=== PATIENT | female | born 1950 | race Caucasian/White ===

== ENCOUNTER → 2018-08-28 10:43 | Outpatient (CLI) | payer MEDICARE, SELFPAY | PROVIDERS: Referring Provider Internal Medicine Cardiovascular Disease; Visit Provider Internal Medicine Cardiovascular Disease | DX: R00.2 Palpitations (principal) | CPT/HCPCS: 93306 ==

== ENCOUNTER → 2018-12-17 09:30 | Outpatient (CLI) | payer MEDICARE, SELFPAY ==
--- NOTE | 2018-12-17 09:33 | BI_ITS ---
MAMMOGRAPHY - BILATERAL SCREENING REASON FOR EXAM: Female, 68 years old. Routine annual screening examination. PERTINENT HISTORY: Sister with breast cancer. Aunt with breast cancer. TECHNIQUE: Digital bilateral breast rai (3D mammographic acquisition) in the CC and MLO projections. 2-D mediolateral oblique (MLO) and craniocaudad (CC) views of both breasts were obtained. CAD: Full Field Digital Mammography with Computer Added Detection was performed. COMPARISON: Comparison is made with prior study dated August 04, 2017 and August 02, 2016. FINDINGS: Breast Composition: There are scattered areas of fibroglandular density. The previously seen nodular density in the deep upper medial portion of the right breast has increased in size. It presently measures 1.5 cm x 1.2 cm. Correlation with ultrasound is recommended. No other significant abnormalities are identified. BI/SCREENING MAMM (CAD), BILAT IMPRESSION: Increased size of the nodular density in the deep upper medial portion of the right breast as described. Correlation with ultrasound is recommended. ASSESSMENT CATEGORY: BIRADS Category 0: Incomplete. Need additional imaging evaluation. A letter regarding these results will be sent to the patient by the facility within 30 days. Approximately 10% of breast cancers are not detected by mammography. A normal mammogram should not delay biopsy of a clinically suspicious abnormality. [id number] Electronically Signed: Lefty Espinoza MD at 12:32 EST , Service support ,
== END ==
DX: Z12.31 Encounter for screening mammogram for malignant neoplasm of breast (principal)
CPT/HCPCS: 77063; 77067

== ENCOUNTER → 2018-12-21 14:39 | Outpatient (CLI) | payer MEDICARE, SELFPAY ==
--- NOTE | 2018-12-21 14:41 | US_ITS ---
STUDY: ULTRASOUND BREAST - RIGHT REASON FOR EXAM: Female, 68 years old. Abnormal screening mammogram. TECHNIQUE: Axial and longitudinal images of the RIGHT breast were performed with a high resolution ultrasound transducer. COMPARISON: Comparison is made with prior mammogram dated December 17, 2018. FINDINGS: RIGHT Breast: There is a 1.1 cm x 1.3 cm x 0.8 cm hypoechoic slightly lobulated solid mass at the 2:00 position of the breast at 15 cm from the nipple. A biopsy is recommended for further evaluation. US/Breast Limited Unilateral IMPRESSION: The mammographic abnormality corresponds to a 1.1 cm x 1.3 cm x 0.8 cm slightly lobulated hypoechoic nodule at the 2:00 position of the breast at 15 cm from the nipple. A biopsy is recommended for further evaluation. ASSESSMENT CATEGORY: BIRADS Category 4: Suspicious - Biopsy Should Be Considered. A letter regarding these results will be sent to the patient by the facility within 30 days. Electronically Signed: Lefty Espinoza MD at 16:00 EST , Service support ,
== END ==
DX: R92.2 Inconclusive mammogram (principal)
CPT/HCPCS: 76642

== ENCOUNTER → 2018-12-29 14:52 | Outpatient (CLI) | payer MEDICARE, SELFPAY ==
--- NOTE | 2018-12-29 | IMM_PTH ---
PATIENT: ALONZO VÁSQUEZ LOC: [facility] U#:[id number] AGE/SX: 74/F ROOM: RE12/29/[address]: Dr. Jamie Pineda MD : 1950 BED: DIS: SPEC #: [id number] RECD: 12/30/18 13:41 STATUS: GARCIA REPaul #: [id number] MAXIMINO: 12/29/18 00:[address]: Jamie Pineda DEPT: IMMUNOHISTOCHEMISTRY RECD BY: Sisi Barker ENTERED: 12/30/18 13:43 SP TYPE: IMMUNO OTHR DR: [facility] Tissues: Right breast, NOS Procedures: CALPONIN-1 (add) CK5-6 (add) CK8 (add) E-CAD (add) HER2 HOLLY (add) KI-67 (add) P53 (add) MA (add) P40 (add) ER (initial) PHYSICIAN & INSTITUTION [place] [id number] SPECIMEN INFORMATION: Tissue Source: Right breast biopsy Clinical Info: Abnormal mammogram Specimen Number: [id number] CPT code: 31192, 35451 x6, 16292 x3 METHODOLOGY: Deparaffinized sections of prefer/formalin-fixed tissue or PAP/DQ stained slides are incubated with monoclonal/polyclonal antibodies/oligonucleotide probes. Localization is made via biotin free immunoperoxidase method. Appropriate controls are performed and reacted as expected. Results on target cell population are indicated in the following table: RESULTS: ANTIBODY / CLONE RESULT P53 (DO-7) positive, 2% dim Ki-67 (30-9) positive, low CK8 (38zahsG09) positive CK5-6 (D5 & 1684) negative Calponin-1 (UJ802S) negative P40 (BC28) negative E-Cad (ECH-6) positive MORPHOMETRIC ANALYSIS ER (clone 6F11) >95%, strong MA (clone 16/1E2) >95%, strong Her-2Neu (clone CB11) 0 The prognostic test for HER2 is performed on formalin-fixed paraffin embedded tissue. A 3+ (positive) staining pattern is defined as intense, homogeneous, complete, circumferential membranous staining in >10% of contiguous tumor cells. A similar weak (2+) staining pattern is interpreted as equivocal. MELY follow-up testing is recommended for all equivocal cases. Positivity/negativity for ER/MA is reported if > or < 1% of the tumor cells are immuno- reactive, respectively. The ASCO/CAP criteria is used for scoring. Reference: Journal of Clinical Oncology, 2013; 31:2361-7436 & 2010; 16:7569-7852. Duration of fixation: 5.5 Hrs; Sample Adequate: Yes. These assays have not been validated on decalcified tissues. Results should be interpreted with caution given the likelihood of false negativity on decalcified specimens. These tests were developed and their performance characteristics determined by [facility]. They may not have been cleared or approved by the U.S. Food and Drug Administration. The FDA has determined that such clearance or approval is not necessary. INTERPRETATION: Right breast, ultrasound-guided biopsy: Consistent with complex atypical papillary neoplasm. Positive for estrogen receptors (favorable prognostic indicator). Positive for progesterone receptors (favorable prognostic indicator). Negative for overexpression of SJO6eoy. AM:brennan 12/31/18
--- NOTE | 2018-12-29 14:00 | BRBX_PTH ---
PATIENT: ALONZO VÁSQUEZ LOC: [facility] U#:[id number] AGE/SX: 74/F ROOM: RE12/29/[address]: Dr. Jamie Pineda MD : 1950 BED: DIS: SPEC #: [id number] RECD: 12/29/18 14:48 STATUS: GARCIA NYA #: [id number] MAXIMINO: 12/29/18 14:[address]: Jamie Pineda DEPT: SURGICAL PATHOLOGY RECD BY: Sisi Barker ENTERED: 12/29/18 15:15 SP TYPE: BREAST BX OTHR DR: Юлия [facility] Tissues: Right breast, NOS Procedures: Gen Path Consultation (on slides) Surgery Specimen Level IV HEADER OPERATION: Ultrasound-guided right breast biopsy PRE-OP DIAGNOSIS: Abnormal mammogram R92.8 TISSUE SUBMITTED: Right breast biopsy ISCHEMIC TIME: 30 seconds FIXATION TIME: 5.5 hours MICROSCOPIC DIAGNOSIS Right breast, ultrasound-guided core biopsy: Fragments of atypical papillary neoplasm. See comment. AM:brennan 12/30/18 COMMENT Complete excision of the lesion is recommended for definite classification. Immunohistochemistry ([id number]) supports the above diagnosis. ER/MT/Iqi6yta studies are being performed on sections of tumor and the results from this study will be reported separately ([id number]). MICROSCOPIC DESCRIPTION Slides are reviewed. GROSS DESCRIPTION Received in fixative is one container labeled with the patient's name and designated right breast tissue. The specimen consists of multiple fragments of montes-yellow fibroadipose tissue that in aggregate measure 1.3 x 0.6 x 0.1 cm. The entire specimen is submitted in one cassette. / SJ:brennan 12/29/18 TC:? CPT: 19757
--- NOTE | 2018-12-29 14:00 | BRBX_PTH ---
PATIENT: ALONZO VÁSQUEZ LOC: [facility] U#:[id number] AGE/SX: 74/F ROOM: RE12/29/[address]: Dr. Jamie Pineda MD : 1950 BED: DIS: SPEC #: [id number] RECD: 12/29/18 14:48 STATUS: GARCIA NYA #: [id number] MAXIMINO: 12/29/18 14:[address]: Jamie Pineda DEPT: SURGICAL PATHOLOGY RECD BY: Sisi Barker ENTERED: 12/29/18 15:15 SP TYPE: BREAST BX OTHR DR: Юлия [facility] Tissues: Right breast, NOS Procedures: Gen Path Consultation (on slides) Surgery Specimen Level IV HEADER OPERATION: Ultrasound-guided right breast biopsy PRE-OP DIAGNOSIS: Abnormal mammogram R92.8 TISSUE SUBMITTED: Right breast biopsy ISCHEMIC TIME: 30 seconds FIXATION TIME: 5.5 hours MICROSCOPIC DIAGNOSIS Right breast, ultrasound-guided core biopsy: Consistent with papillary carcinoma, 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 See comment. AM:brennan 12/30/18 AM:brennan 01/04/19 COMMENT Complete excision of the lesion is recommended for definite classification. Immunohistochemistry ([id number]) supports the above diagnosis. ER/MI/Skb0jlr studies are being performed on sections of tumor and the results from this study will be reported separately ([id number]). This case is seen in consultation with Dr. Warren of [employer]. The complete consultative report is viewable in patient's EMR. MICROSCOPIC DESCRIPTION Slides are reviewed. GROSS DESCRIPTION Received in fixative is one container labeled with the patient's name and designated right breast tissue. The specimen consists of multiple fragments of montes-yellow fibroadipose tissue that in aggregate measure 1.3 x 0.6 x 0.1 cm. The entire specimen is submitted in one cassette. / SJ:brennan 12/29/18 TC:0 CPT: 13771
[2018-12-29 14:26] VITALS: BMI 50.1
== END ==
PROVIDERS: Referring Provider Surgery; Visit Provider Surgery
DX: R92.8 Other abnormal and inconclusive findings on diagnostic imaging of breast (principal)
CPT/HCPCS: 88305; 88325; 88341; 88342

== ENCOUNTER 2019-01-15 10:49 | Day surgery (SDC) | payer MEDICARE, SELFPAY ==
[2019-01-12 08:03] VITALS: BMI 50.1
[2019-01-15] VITALS (7 sets, daily range): BP systolic 137–165; BP diastolic 57–72; PULSE 51–63; RESP 16–18; TEMP 36.4–36.9; O2SAT 96–100; BMI 48.9
--- NOTE | 2019-01-15 | IMM_PTH ---
PATIENT: ALONZO VÁSQUEZ LOC: [facility] U#:[id number] AGE/SX: 68/F ROOM: RE01/15/[address]: Dr. Jamie Pineda MD : 1950 BED: DIS: 01/15/2019 SPEC #: [id number] RECD: 01/21/19 12:48 STATUS: GARCIA REQ #: [id number] MAXIMINO: 01/15/19 00:[address]: Jamie Pineda DEPT: IMMUNOHISTOCHEMISTRY RECD BY: Sisi Barker ENTERED: 01/21/19 12:50 SP TYPE: IMMUNO OTHR DR: Rhianna Claire, [employer] Tissues: A - Right breast, NOS B - Axillary lymph node, NOS Procedures: E-CAD (initial) CK7 (add) CK8 (add) Pankeratin (initial) PHYSICIAN & INSTITUTION [place] [id number] SPECIMEN INFORMATION: Tissue Source: A - Right breast, lumpectomy, B - Right sentinel lymph node, biopsy Clinical Info: Intraductal papillary adenocarcinoma right breast Specimen Number: [id number] A6 & B1 CPT code: 38919 x2, 92801 x3 METHODOLOGY: Deparaffinized sections of prefer/formalin-fixed tissue or PAP/DQ stained slides are incubated with monoclonal/polyclonal antibodies/oligonucleotide probes. Localization is made via biotin free immunoperoxidase method. Appropriate controls are performed and reacted as expected. Results on target cell population are indicated in the following table: RESULTS: ANTIBODY / CLONE RESULT Block A6 E-Cad (ECH-6) positive CK8 (97vwkhR24) positive Block B1 AE1-3 (AE1/AE3/PCK26) negative CK7 (OV-TL12/30) negative These tests were developed and their performance characteristics determined by [facility]. They may not have been cleared or approved by the U.S. Food and Drug Administration. The FDA has determined that such clearance or approval is not necessary. INTERPRETATION: A. Right breast, lumpectomy: Focal ductal carcinoma in situ. B. Right sentinel lymph node, biopsy: One lymph node, negative for metastatic carcinoma. COREY:brennan 01/22/19
--- NOTE | 2019-01-15 | BREAST_PTH ---
PATIENT: ALONZO VÁSQUEZ LOC: [facility] U#:[id number] AGE/SX: 68/F ROOM: RE01/15/[address]: Dr. Jamie Pineda MD : 1950 BED: DIS: 01/15/2019 SPEC #: [id number] RECD: 01/15/19 14:13 STATUS: GARCIA REPaul #: [id number] MAXIMINO: 01/15/19 00:[address]: Jamie Pineda DEPT: SURGICAL PATHOLOGY RECD BY: Sisi Barker ENTERED: 01/15/19 15:13 SP TYPE: BREAST OTHR DR: Rhianna Claire, [employer] Tissues: A - Right breast, NOS B - Axillary lymph node, NOS C - Right breast, NOS Procedures: Frozen Section (charge) Surgery Specimen Level IV Surgery Specimen Level V HEADER OPERATION: Right breast lumpectomy, SN with Neoprobe, ultrasound-guided NL PRE-OP DIAGNOSIS: Intraductal papillary adenocarcinoma right breast TISSUE SUBMITTED: A - Right breast lumpectomy, wire in skin - anterior lateral, single long suture - medial, double long suture - lateral, double short suture - inferior, B - Right sentinel nodes, frozen section at 1417, C - Right breast tissue posterior margin, suture closest to tumor FROZEN SECTION DIAGNOSIS B. Right sentinel lymph node, biopsy: One lymph node, negative for metastatic carcinoma. SJ:brennan 01/15/19 MICROSCOPIC DIAGNOSIS A. Right breast, lumpectomy with needle localization: Encapsulated papillary carcinoma. See cancer summary below. B. Right sentinel lymph node, biopsy: One lymph node, negative for metastatic carcinoma. See comment. C. Right breast tissue, posterior margin: A few floating fragments of papillary carcinoma in the blood clots in the area identified by the suture, favor contamination. SJ: 01/21/19 DUCTAL CARCINOMA IN SITU SUMMARY: Specimen - partial breast Procedure - excision with wire-guided localization. Lymph node sampling - sentinel lymph node Specimen integrity - multiple designated specimens (main excision and identified margin) Specimen size - lumpectomy specimen 8 x 6 x 3 cm and additional margin 5 x 4 x 1.5 cm Tumor site - not identified Size (extent) of DCIS - 1.1 x 1 x 0.8 cm Number of blocks with DCIS - 3 Number of blocks examined - 16 (specimens A & C) Histologic type - encapsulated papillary carcinoma Nuclear grade - Grade 2 Necrosis - not identified Margins - margin uninvolved by carcinoma. The tumor is 0.5 cm away from the closest posterior margin. See comment. Treatment effect: Response to presurgical (neoadjuvant) therapy - no known presurgical therapy. Lymph nodes: Number of sentinel lymph nodes examined - 1 Total number of lymph nodes examined (sentinel and nonsentinel) - 1 Number of lymph nodes with macrometastasis, micrometastasis and isolated tumor cells - 0 Method of evaluation of sentinel lymph nodes - H & E, multiple levels and IHC. Distant metastasis - not applicable Additional Pathologic Findings - consistent with previous biopsy site. Ancillary Studies from previous specimen ([id number] / [id number]): ER - positive (>95%, strong) CT - positive (>95%, strong) Her2 maria eugenia (IHC) - negative (0) Microcalcifications - not identified Clinical history - Please make reference to previous specimen ([id number]), right breast, ultrasound-guided core biopsy with diagnosis of consistent with papillary carcinoma, 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 Pathologic Staging: pTis(encapsulated papillary carcinoma) Nx Mx The above summary is in compliance with [employer] [place] Pathology (CAP) Cancer Protocols Checklist and [place] Joint Committee on Cancer (AJCC), Staging Manual, 8th Ed. COMMENT A. Immunohistochemistry ([id number]) supports the above diagnosis. B. The lymph node is negative for metastatic carcinoma on multiple H & E levels and immunohisto-chemical stains for cytokeratins ([id number]). Case has been reviewed in consultation with Dr. Bernard who concurs with the above diagnosis. IDC:AM MICROSCOPIC DESCRIPTION Slides are reviewed. GROSS DESCRIPTION A - Received in fresh for intraoperative consultation labeled with the patient's name and designated right breast lumpectomy. The specimen consists of a piece of fibroadipose tissue with needle localization measuring 8 x 6 x 3 cm. A piece of skin noted anteriorly measuring 1 x 0.5 cm. The specimen is inked as follows: anterior - yellow, posterior - black, superior - blue, inferior - green, medial - red and lateral - orange. Sections reveal a montes, indurated mass measuring 1.1 x 0.8 x 1 cm and this mass is opened 0.5 cm away from the closest superior margin. Sections of the rest of the specimen reveal montes-yellow adipose cut surfaces mixed with scant fibrous areas. The gross is reviewed with the surgeon in person. Barrel Burner sections are submitted in ten cassettes as follows: 1 & 2 - perpendicular margin and skin, 3-5 - entire tumor mass with surround tissue, 6-10 - sales representative facility services sections adjacent and away from the mass. Sections will be submitted after additional fixation. / SJ:brennan 01/18/19 B - Received fresh for frozen section diagnosis labeled with the patient's name is a specimen designated right sentinel lymph node. The specimen consists of two pieces of yellow adipose tissue measuring in aggregate 2 x 2 x 0.7 cm. One lymph node is identified measuring 1 cm in greatest dimension. The entire specimen is submitted in two cassettes as follows: 1 - frozen section, one bisected lymph node, 2 - rest of the specimen. / SJ:brennan 01/15/19 C - Received in fixative is one container labeled with the patient's name and designated right breast tissue posterior margin. The specimen consists of a piece of yellow adipose tissue measuring 5 x 4 x 1.5 cm. One surface shows a suture which is inked black and opposite surface is inked blue. The area close to the suture is also submitted. / SJ:brennan 01/18/19 TC:0 CPT: 81859 x2, 91178, 45567, 77571
--- NOTE | 2019-01-15 11:54 | NM_ITS ---
CLINICAL: Female, 68 years old. ] Breast Cancer NUCLEAR MEDICINE LYMPHOSCINTIGRAPHY TECHNIQUE: Intradermal administration of 1 mCi of Tc99m sulfur colloid, in the periareolar region in the affected breast is performed. COMPARISON STUDIES : NM - None. CR - Not available for review at this time. CT - Not available for review at this time. MR - Not available for review at this time. US - Not available for review at this time. FINDINGS: The patient was sent to the OR no images were obtained. NM/Lymph Node Injection Only IMPRESSION: Successful lymphoscintigraphy. Electronically Signed: Federica Cardenas, at 16:22 EDT Tel , Service support ,
[2019-01-15 12:11] LABS: Bedside Glucose 104 mg/dL (70-110)
--- NOTE | 2019-01-15 13:36 | PCM.OPRPT ---
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 Injection of 5 cc of Lymphazurin blue. 2. Ultrasound-guided wire localization of intraductal papillary adenocarcinoma of right breast. 3. ultrasound-guided wire localization lumpectomy. 4. Right sentinel lymph node biopsy Type of Anesthesia:: General Anesthesiologist: Munir Adkins Specimen's removed: 1. Right breast lumpectomy. 2. Right sentinel lymph node biopsies Drains: none Description of Procedure: Patient was brought into the operating room. Placed in the supine position. Under excellent LMA anesthesia I ultrasound the right breast in the upper inner quadrant and identified the lesion. I prepped the skin with alcohol. A Kopan's wire was placed directly through the lesion. It was cut appropriately. I prepped the nipple areolar area with alcohol. I injected 5 cc of Lymphazurin blue circumareolar the around the nipple. I massaged the breast for 5 minutes. The breast and axillary area were then sterilely prepped and draped in the usual fashion. I injected local in the upper inner quadrant I made an incision in elliptical incision around the previous biopsy site with electrocautery I went around the lesion obtaining good hemostasis. I marked my specimen with a single long medial double long lateral double short inferiorly. I then took a posterior margin which was closest to the biopsy site. This was sent for permanent sectioning and formaldehyde. Once I had good hemostasis I closed the subcu tissue with 3 sutures of 2-0 Vicryl. Use the Татьяна counter and identified the closest lymph node. I made an axillary incision. I dissected down with electrocautery through the clavipectoral fascia and identified a blue lymphatic. I traveled the blue lymphatic using the Татьяна counter until I found an extremely hot lymph node measuring above 1700. I removed this lymph node with the harmonic dissector and sent to pathology. I then placed the [place] counter back into the axillary area found another area that was slightly elevated above 400 I dissected this out with harmonic dissector and sent it as well. Both of these areas look blue. No other areas in the axillary area were hot with the [place] counter. Frozen section on the lymph node confirmed it to be benign. The axillary incision was then closed with subcu of 2-0 Vicryl deep dermals of 3-0 Vicryl then a running 4-0 Monocryl. Skin incision on the breast was closed with deep dermal stitches of 3-0 Vicryl then a running 4-0 Monocryl. Steri-Strips are applied sterile dressings were applied and the patient tolerated the procedure well. - Admit VTE Documentation VTE Present on Admission: No VTE Mechan Device Prophylaxis: SCD's VTE Pharm Prophylaxis ordered?: No Reason prophylaxis not ordered:: Treatment Not Indicated
--- NOTE | 2019-01-15 13:39 | DCINST_ITS ---
Discharge Diet: No Restrictions Discharge Activity: May Not Drive - for 2-3 days or while taking narcotic pain meds. May shower in (days): 1 Lifting Restrictions: 10 pounds for 1 week. Call your doctor if your incision/area has: Continuous Slow Oozing, Sudden In creased Bleeding Call your doctor if you observe: Fever of 101 or Higher Suture Line Care: Avoid Pulling/Pushing, Avoid Pinching/Bending Remove Dressing in (days):: 1 - Remove bulky dressing tomorrow. May leave any opsite dressing for 3-4 days[address] Keep dressing in place until your follow-up appointment. Additional Dressing/Incision Instructions:: Remove bulky dressing tomorrow. May leave any opsite dressing for 3-4 days. Keep dressing in place until your follow-up appointment. Allergies/Adverse Reactions: Allergies cephalexin Allergy (Verified 01/15/19 11:36) Rash clindamycin Allergy (Verified 01/15/19 11:36) Rash Penicillins Allergy (Verified 01/15/19 11:36) Rash Sulfa (Sulfonamide Antibiotics) Allergy (Verified 01/15/19 11:36) Rash PLASTIC TAPE Adverse Reaction (Uncoded 01/15/19 11:36) TEARS SKIN Medications to take at Discharge Ascorbic Acid [Vitamin C] 500 mg PO DAILY@0800 06/11/17 Aspirin E.C. [Ecotrin] 81 mg PO DAILY@0800 06/11/17 Ergocalciferol [Vitamin D] 50,000 unit PO MO 06/11/17 Hydrochlorothiazide [Hctz] 25 mg PO DAILY 06/11/17 Losartan Potassium [Cozaar] 50 mg PO BID 06/11/17 Metformin HCl [Metformin HCl ER] 750 mg PO QHS 06/11/17 Montelukast [Singulair] 10 mg PO DAILY 06/11/17 Omeprazole [Prilosec] 20 mg PO DAILY 06/11/17 Pravastatin [Pravachol] 20 mg PO QHS 06/11/17 Albuterol Inhaler [Ventolin Hfa] 2 puff INHALATION Q4H PRN PRN #1 inhaler 08/23/17 Fluticasone/Salmeterol [Advair 500/50 Mcg Diskus] 1 puff INHALATION BID PRN #1 inhaler 08/23/17 fluticasone furoate 27.5 mcg/actuation nasal spray,suspension 2 spray INTRANASAL DAILY 08/11/18 atenolol 50 mg tablet 50 mg PO DAILY #90 tab 08/12/18 Acetaminophen [Tylenol Extra Strength] 500 mg PO DAILY 01/14/19 Oxycodone HCl/Acetaminophen [Percocet 5/325] 1 - 2 tab PO Q4H PRN PRN 6 Days #30 tab 01/15/19 The following prescriptions were given: Oxycodone HCl/Acetaminophen [Percocet 5/325] 1 - 2 tab PO Q4H PRN PRN 6 Days #30 tab PRN Reason: Pain Primary Care Physician: Юлия Marroquin [Primary Care Provider] -
[2019-01-15] MEDS: Isosulfan Blue 1% 5 ML Vial (13:45)
--- NOTE | 2019-01-15 14:00 | BI_ITS ---
SURGICAL BREAST SPECIMEN RADIOGRAPH CLINICAL: Document presence of tissue clip marker in biopsy specimen. FINDINGS: Specimen shows presence of tissue clip marker. Pathology is pending and an addendum to the biopsy report will be performed after the final pathologic diagnosis is rendered. Electronically Signed: Federica Cardenas, at 16:22 EDT Tel , Service support , BI/Breast Biopsy Specimen
[2019-01-15] MEDS: Bupivacaine Mpf 0.5% 30 ML VIAL (14:23)
[2019-01-15 15:26] LABS: Bedside Glucose 86 mg/dL (70-110)
--- NOTE | 2019-01-15 16:48 | SUR.PHASEII ---
norco prescription destroyed by tearing and placing in secured recycle bin. Witnessed by Analia LIVNIGSTON.
== END 2019-01-15 16:50 | disposition home or self-care (01) ==
LOC: SDC 10:50 → AC 10:51
PROVIDERS: Referring Provider Surgery; Visit Provider Surgery
PROC: (CPT 19301; principal; 2019-01-15 13:45)
DX: D05.11 Intraductal carcinoma in situ of right breast (principal); I10 Essential (primary) hypertension; E78.5 Hyperlipidemia, unspecified; J45.909 Unspecified asthma, uncomplicated; E11.9 Type 2 diabetes mellitus without complications; M19.90 Unspecified osteoarthritis, unspecified site; G47.33 Obstructive sleep apnea (adult) (pediatric); I34.0 Nonrheumatic mitral (valve) insufficiency
CPT/HCPCS: 19301; 38525; 38792; 76098; 82962; 88305; 88307; 88331; 88341; 88342; A9541; J7050; J7120; J2405; Q9968

== ENCOUNTER → 2019-02-02 11:50 | Outpatient (CLI) | payer MEDICARE, SELFPAY ==
[2019-01-27 13:06] VITALS: BMI 49.2
[2019-02-02 10:51] VITALS: BMI 48.9
--- NOTE | 2019-02-02 11:56 | BD_ITS ---
STUDY: DUAL ENERGY X-RAY ABSORPTIOMETRY / DXA REASON FOR EXAM: Female, 68 years old. The patient is postmenopausal. Loss of height. History of breast cancer. TECHNIQUE: Bone Mineral Density (BMD) measurements of lumbar spine and right hip were obtained. COMPARISON: None. FINDINGS: Lumbar Spine (L1-L4): g/cm2 (1.074) / T-score (-0.8) / Z-score (0.8) Findings are suggestive of normal bone density with a low fracture risk. Right Femur Total: g/cm2 (1.023) / T-score (0.1) / Z-score (1.5) Right Femoral Neck: g/cm2 (0.899) / T-score (-1.0) / Z-score (0.6) BD/Dexa Bone Density Study IMPRESSION: The patient is considered normal as outlined below according to World [employer] Organization (WHO) criteria with a low fracture risk. Reference Information: The T-score is the number of standard deviations above or below the standard which is normal for young adults at their peak bone mineral density. The World Health Organization (WHO) interprets the T-scores as follows: Above -1 Normal bone density Between -1 and -2.5 Osteopenia Equal to / or below -2.5 Osteoporosis As a practical clinical guideline, osteopenia may be graded as follows: Mild -1 through -1.5 Moderate -1.6 through -2.0 Severe -2.1 through -2.4 The Z-score is the number of standard deviations above or below age-matched controls. A Z-score of less than -1.5 would be considered abnormal. References: 1. NIH Osteoporosis and Related Bone Diseases http://www.osteo.org 2. International Society for Clinical Densitometry http://www.iscd.org 3. National Osteoporosis Foundation http://www.nof.org Electronically Signed: Lefty Espinoza, at 13:07 EDT , Service support ,
== END ==
PROVIDERS: Referring Provider Internal Medicine Hematology & Oncology; Visit Provider Internal Medicine Hematology & Oncology
DX: C50.911 Malignant neoplasm of unspecified site of right female breast (principal); Z78.0 Asymptomatic menopausal state
CPT/HCPCS: 77080

== ENCOUNTER 2019-12-13 06:58 | Day surgery (SDC) | payer MEDICARE, SELFPAY ==
[2019-02-16 09:03] VITALS: BMI 51.2
[2019-12-01 09:05] VITALS: BMI 46.2
--- NOTE | 2019-12-01 09:26 | HP_ITS ---
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 [Ecotrin] 81 mg PO DAILY@0800 06/11/17 [History Confirmed 12/01/19] Ergocalciferol [Vitamin D] 50,000 unit PO MO 06/11/17 [History Confirmed 12/01/19] Hydrochlorothiazide [Hctz] 25 mg PO DAILY 06/11/17 [History Confirmed 12/01/19] Metformin HCl [Metformin HCl ER] 750 mg PO QHS 06/11/17 [History Confirmed 12/01/19] Montelukast [Singulair] 10 mg PO DAILY 06/11/17 [History Confirmed 12/01/19] Omeprazole [Prilosec] 20 mg PO DAILY 06/11/17 [History Confirmed 12/01/19] Pravastatin [Pravachol] 20 mg PO QHS 06/11/17 [History Confirmed 12/01/19] Albuterol Inhaler [Ventolin Hfa] 2 puff INHALATION Q4H PRN PRN #1 inhaler 08/23/17 [Rx Confirmed 12/01/19] Fluticasone/Salmeterol [Advair 500/50 Mcg Diskus] 1 puff INHALATION BID PRN #1 inhaler 08/23/17 [Rx Confirmed 12/01/19] atenolol 50 mg tablet 50 mg PO DAILY #90 tab 08/12/18 [Rx Confirmed 12/01/19] lisinopril 20 mg tablet 20 mg PO DAILY 01/22/19 [History Confirmed 12/01/19] Fexofenadine HCl [Rubi Allergy] 180 mg PO DAILY 01/27/19 [History Confirmed 12/01/19] meloxicam 15 mg tablet 7.5 mg PO DAILY 90 Days #90 tab 02/12/19 [History Confirmed 12/01/19] Anastrozole [Arimidex] 1 mg PO DAILY 90 Days #90 tab 07/28/19 [Rx Confirmed 12/01/19] [facility] Medical History Nonrheumatic mitral (valve) insufficiency (Chronic) Obesity (Chronic) Hyperlipidemia (Chronic) Essential hypertension (Chronic) Breast cancer, right (Acute) CHF (congestive heart failure) (Acute) Asthma (Chronic) Obstructive sleep apnea (Chronic) Osteoarthritis (Chronic) Type 2 diabetes mellitus (Chronic) Surgical History History of breast biopsy (Acute ~12/2018) History of lumpectomy of right breast (Acute ~01/15/19) History of ankle surgery (Resolved) History of tubal ligation (Resolved) Hx of cholecystectomy (Resolved) Family History Mother Heart disease Breast cancer PER PATIENT MOTHER DID NOT HAVE BREAST CANCER Aunt Breast cancer Sister Breast cancer Asthma Father Colon cancer Brother Colon cancer Other Cancer Social History (Updated 12/01/19 @ 09:27 by Jamie Pineda MD) Smoking Status: Never smoker alcohol intake: never HPI HPI HPI: ALONZO VÁSQUEZ, is a 68 F who presents to the office today for HPI HPI Surgical H&P: Yes HPI: ALONZO VÁSQUEZ, is a 68 F who presents to the office today for Evaluation for colonoscopy. Patient's last colonoscopy was completed 3 years ago when she was found to have a polyp in the sigmoid colon. 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 This mutation has the potential to have a twofold increase in colon cancer. Patient has not been having an abdominal pain she has not noticed any rectal bleeding. ROS General General: Yes breast cancer; no weight change, appetite, fatigue, colon cancer or weakness HEENT HEENT: No difficulty swallowing, eye injury, eye surgery, swollen glands or hoarseness Endo Endocrine: Yes diabetes mellitus; no thyroid disease, thyroid cancer, Hair loss, heat intolerance or cold intolerance Skin Skin: No rash or changing moles Breast Breast: No left breast lump, right breast lump, nipple discharge, breast pain, abnormal mammogram, abnormal US or breast enlargement Musc Musculoskeletal: Yes arthritis and rheumatoid arthritis; no back problems, gout or joint pain Cardio Cardiovascular: Yes high blood pressure; no murmur, pacemaker, heart disease, atrial fibrillation, heart attack, heart stent, palpitations, shortness of breat with exertion or chest pain Psych Psychiatric: No depression, anxiety or hearing voices Resp Respiratory: Yes shortness of breath, Yes sleep apnea, No cough, No COPD, Yes asthma, No emphysema, No wheezing Gastro Gastrointestinal: No abdominal pain, No nausea or vomiting, No diarrhea, No constipation, No blood in stool, Yes acid reflux, No hemorrhoids, No ulcers, No gallbladder problem, No black,tarry stools Damon Hematologic: No blood thinners, No blood disorders, No bleeding, No anemia, No blood clots Neuro Neurologic: No system reviewed and no additional complaints, except as docu, No as per HPI, No abnormal walking, No abnormal hearing, No abnormal movements, No abnormal speech, No behavioral changes, No burning sensations, No confusion, No seizure-like activity, No unsteadiness, No dizziness, No localized weakness, No frequent falls, No headache(s), No lack of coordination, No loss of vision, No memory loss, No numbness, No other visual disturbances, No radiating pain, No restless legs, No sensory deficit, No fainting, No tingling, No tremor(s), No weakness, No other Exam Const General: no acute distress, well developed, well hydrated Orientation: oriented to person, oriented to place, oriented to time [facility] Head: normocephalic, atraumatic Ears: external ears normal Mouth: moist mucous membranes Eyes Sclera: sclerae normal Pupils: normal by confrontation Neck Neck: no lymphadenopathy noted Neck mass: No Thyroid: thyroid normal, symmetrical Chest Chest palpation & inspection: normal inspection of the chest Breast Palpation: No nipple discharge Resp Effort & Inspection: normal respiratory effort Auscultation: clear to auscultation bilaterally Percussion: percussion normal Cardio Rate: regular rate Rhythm: regular rhythm Heart Sounds: no murmurs GI Inspection: obesity Palpation: soft, no hepatosplenomegaly, no masses, nontender Rectal Exam: other Other: Rectal exam deferred. Extrem General: normal to inspection, no clubbing, cyanosis or edema Assessment & Plan Problems 1. Personal history of colonic polyps Z86.010 2. 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 I have offered the patient colonoscopy for evaluation. I have explained the risks/benefits of the procedure and described the procedure. I have discussed the risks with the patient, including but not limited to: infection, bleeding, perforation of the GI tract requiring emergency surgery, inability to complete the procedure, injury to any internal organs, complications of anesthesia, etc. - the patient understands and agrees to proceed. I have answered all the patient's questions to the patient's satisfaction and the patient has no further questions. The patient has been given instructions for the colon cleansing preparation. 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
[2019-12-13 07:30] VITALS: BP 161/58; PULSE 54; RESP 16; TEMP 36.6; O2SAT 98; BMI 43.9
[2019-12-13] MEDS: Lactated Ringers 1,000 ML 75 ML IV (08:00)
[2019-12-13 08:06] LABS: Bedside Glucose 89 mg/dL (70-110)
--- NOTE | 2019-12-13 08:25 | PCM.HP.BLA ---
History and Physical Date of Admission: 12/13/19 [facility] Medical Records Department [address] [place] [address] History and Physical 12/01/19925 MR#: [id number] Acct: [id number] Name: ALONZO VÁSQUEZ Rep #: [id number] : 1950 68 From: Jamie Pineda MD PCP: [facility] Status: [facility] [place] Location: EN Intake Vital Signs 12/01/19 BMI 46.2 12/01/19 Height 4 ft 11 in 12/01/19 Weight: 229 lb 12/01/19 BMI 46.2 12/01/19 BP 178/76 H 12/01/19 Blood Pressure Location Rt brachial 12/01/19 Position Sitting 12/01/19 Respiration 16 Intake Visit Reasons: C-Scope Consult Family HX Last [facility] 2014 Chief Complaint: 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 [Ecotrin] 81 mg PO DAILY@0800 06/11/17 [History Confirmed 12/01/19] Ergocalciferol [Vitamin D] 50,000 unit PO MO 06/11/17 [History Confirmed 12/01/19] Hydrochlorothiazide [Hctz] 25 mg PO DAILY 06/11/17 [History Confirmed 12/01/19] Metformin HCl [Metformin HCl ER] 750 mg PO QHS 06/11/17 [History Confirmed 12/01/19] Montelukast [Singulair] 10 mg PO DAILY 06/11/17 [History Confirmed 12/01/19] Omeprazole [Prilosec] 20 mg PO DAILY 06/11/17 [History Confirmed 12/01/19] Pravastatin [Pravachol] 20 mg PO QHS 06/11/17 [History Confirmed 12/01/19] Albuterol Inhaler [Ventolin Hfa] 2 puff INHALATION Q4H PRN PRN #1 inhaler 08/23/17 [Rx Confirmed 12/01/19] Fluticasone/Salmeterol [Advair 500/50 Mcg Diskus] 1 puff INHALATION BID PRN #1 inhaler 08/23/17 [Rx Confirmed 12/01/19] atenolol 50 mg tablet 50 mg PO DAILY #90 tab 08/12/18 [Rx Confirmed 12/01/19] lisinopril 20 mg tablet 20 mg PO DAILY 01/22/19 [History Confirmed 12/01/19] Fexofenadine HCl [Rubi Allergy] 180 mg PO DAILY 01/27/19 [History Confirmed 12/01/19] meloxicam 15 mg tablet 7.5 mg PO DAILY 90 Days #90 tab 02/12/19 [History Confirmed 12/01/19] Anastrozole [Arimidex] 1 mg PO DAILY 90 Days #90 tab 07/28/19 [Rx Confirmed 12/01/19] PFSH Medical History Nonrheumatic mitral (valve) insufficiency (Chronic) Obesity (Chronic) Hyperlipidemia (Chronic) Essential hypertension (Chronic) Breast cancer, right (Acute) CHF (congestive heart failure) (Acute) Asthma (Chronic) Obstructive sleep apnea (Chronic) Osteoarthritis (Chronic) Type 2 diabetes mellitus (Chronic) Surgical History History of breast biopsy (Acute ~12/2018) History of lumpectomy of right breast (Acute ~01/15/19) History of ankle surgery (Resolved) History of tubal ligation (Resolved) Hx of cholecystectomy (Resolved) Family History Mother Heart disease Breast cancer PER PATIENT MOTHER DID NOT HAVE BREAST CANCER Aunt Breast cancer Sister Breast cancer Asthma Father Colon cancer Brother Colon cancer Other Cancer Social History (Updated 12/01/19 @ 09:27 by Jamie Pineda MD) Smoking Status: Never smoker alcohol intake: never HPI HPI HPI: ALONZO VÁSQUEZ, is a 68 F who presents to the office today for HPI HPI Surgical H&P: Yes HPI: ALONZO VÁSQUEZ, is a 68 F who presents to the office today for Evaluation for colonoscopy. Patient's last colonoscopy was completed 3 years ago when she was found to have a polyp in the sigmoid colon. 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 This mutation has the potential to have a twofold increase in colon cancer. Patient has not been having an abdominal pain she has not noticed any rectal bleeding. ROS General General: Yes breast cancer; no weight change, appetite, fatigue, colon cancer or weakness HEENT HEENT: No difficulty swallowing, eye injury, eye surgery, swollen glands or hoarseness Endo Endocrine: Yes diabetes mellitus; no thyroid disease, thyroid cancer, Hair loss, heat intolerance or cold intolerance Skin Skin: No rash or changing moles Breast Breast: No left breast lump, right breast lump, nipple discharge, breast pain, abnormal mammogram, abnormal US or breast enlargement Musc Musculoskeletal: Yes arthritis and rheumatoid arthritis; no back problems, gout or joint pain Cardio Cardiovascular: Yes high blood pressure; no murmur, pacemaker, heart disease, atrial fibrillation, heart attack, heart stent, palpitations, shortness of breat with exertion or chest pain Psych Psychiatric: No depression, anxiety or hearing voices Resp Respiratory: Yes shortness of breath, Yes sleep apnea, No cough, No COPD, Yes asthma, No emphysema, No wheezing Gastro Gastrointestinal: No abdominal pain, No nausea or vomiting, No diarrhea, No constipation, No blood in stool, Yes acid reflux, No hemorrhoids, No ulcers, No gallbladder problem, No black,tarry stools Damon Hematologic: No blood thinners, No blood disorders, No bleeding, No anemia, No blood clots Neuro Neurologic: No system reviewed and no additional complaints, except as docu, No as per HPI, No abnormal walking, No abnormal hearing, No abnormal movements, No abnormal speech, No behavioral changes, No burning sensations, No confusion, No seizure-like activity, No unsteadiness, No dizziness, No localized weakness, No frequent falls, No headache(s), No lack of coordination, No loss of vision, No memory loss, No numbness, No other visual disturbances, No radiating pain, No restless legs, No sensory deficit, No fainting, No tingling, No tremor(s), No weakness, No other Exam Const General: no acute distress, well developed, well hydrated Orientation: oriented to person, oriented to place, oriented to time [facility] Head: normocephalic, atraumatic Ears: external ears normal Mouth: moist mucous membranes Eyes Sclera: sclerae normal Pupils: normal by confrontation Neck Neck: no lymphadenopathy noted Neck mass: No Thyroid: thyroid normal, symmetrical Chest Chest palpation & inspection: normal inspection of the chest Breast Palpation: No nipple discharge Resp Effort & Inspection: normal respiratory effort Auscultation: clear to auscultation bilaterally Percussion: percussion normal Cardio Rate: regular rate Rhythm: regular rhythm Heart Sounds: no murmurs GI Inspection: obesity Palpation: soft, no hepatosplenomegaly, no masses, nontender Rectal Exam: other Other: Rectal exam deferred. Extrem General: normal to inspection, no clubbing, cyanosis or edema Assessment & Plan Problems 1. Personal history of colonic polyps Z86.010 2. 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 Plan I have discussed the above with the patient. I have offered the patient colonoscopy for evaluation. I have explained the risks/benefits of the procedure and described the procedure. I have discussed the risks with the patient, including but not limited to: infection, bleeding, perforation of the GI tract requiring emergency surgery, inability to complete the procedure, injury to any internal organs, complications of anesthesia, etc. - the patient understands and agrees to proceed. I have answered all the patient's questions to the patient's satisfaction and the patient has no further questions. The patient has been given instructions for the colon cleansing preparation. 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 There are no clinical changes since date of exam.
[2019-12-13 08:55] VITALS: BP 161/58; BP 177/69; PULSE 48; RESP 18; TEMP 36.2; O2SAT 97
--- NOTE | 2019-12-13 08:55 | OP.COLON_ITS ---
Patient Name: Winifred Negrete Procedure Date: 12/13/2019 8:29 AM Date of : 1950 Age: 69 Procedure: Colonoscopy Indications: High risk colon cancer surveillance: Personal history of colonic polyps, check2 Providers: Jamie Pineda MD Referring MD: Юлия [facility] Medicines: See the Anesthesia note for documentation of the administered medications Patient Profile: This is a 69 year old female. Refer to note in patient chart for documentation of history and physical. Last Colonoscopy: 2016. Complications: No immediate complications. Procedure: Pre-Anesthesia Assessment: - Prior to the procedure, a History and Physical was performed, and patient medications and allergies were reviewed. The patient's tolerance of previous anesthesia was also reviewed. The risks and benefits of the procedure and the sedation options and risks were discussed with the patient. All questions were answered, and informed consent was obtained. Prior Anticoagulants: The patient has taken aspirin, last dose was 8 days prior to procedure. ASA Grade Assessment: III - A patient with severe systemic disease. After reviewing the risks and benefits, the patient was deemed in satisfactory condition to undergo the procedure. After I obtained informed consent, the scope was passed under direct vision. Throughout the procedure, the patient's blood pressure, pulse, and oxygen saturations were monitored continuously. The adult colonoscope was introduced through the anus and advanced to the terminal ileum. The colonoscopy was performed without difficulty. The patient tolerated the procedure well. The quality of the bowel preparation was good. Scope In: 8:37:47 AM Scope Withdrawal Time 0 hours 6 minutes 1 second Scope Out: 8:50:11 AM Total Procedure Duration Time 0 hours 12 minutes 24 seconds Findings: The entire examined colon appeared normal. Non-bleeding internal hemorrhoids were found during retroflexion. The exam was otherwise without abnormality. The terminal ileum appeared normal. Impression: - The entire examined colon is normal. - Non-bleeding internal hemorrhoids. - The examination was otherwise normal. - No specimens collected. Recommendation: - Discharge patient to home. - Resume previous diet. - Continue present medications. - Repeat colonoscopy in 5 years for surveillance. - Return to primary care physician PRN. Procedure Code(s): --- Professional --- 11374, Colonoscopy, flexible; diagnostic, including collection of specimen(s) by brushing or washing, when performed (separate procedure) Diagnosis Code(s): --- Professional --- Z86.010, Personal history of colonic polyps K64.8, Other hemorrhoids CPT copyright 2017 [employer]. All rights reserved. The codes documented in this report are preliminary and upon ct mri technologist review may be revised to meet current compliance requirements. MD Jamie Hernandez MD 12/13/2019 8:54:36 AM This report has been signed electronically. Number of Addenda: 0 Note Initiated On: 12/13/2019 8:29 AM
--- NOTE | 2019-12-13 08:55 | OP.CCLET_ITS ---
12/13/2019 [facility]лия [facility] Re : Colonoscopy procedure for [facility]ifred [facility] This procedure was performed on Friday, December 13, 2019. My impressions and recommendations are as follows: Impressions : - The entire examined colon is normal. - Non-bleeding internal hemorrhoids. - The examination was otherwise normal. - No specimens collected. Recommendations : - Discharge patient to home. - Resume previous diet. - Continue present medications. - Repeat colonoscopy in 5 years for surveillance. - Return to primary care physician PRN. My findings are described in the full procedure note, which is enclosed. If I can be of further assistance, please feel free to contact me at Doctor phone number(s): , Fax: [phone], Work: . Sincerely, MD Jamie Hernandez MD 12/13/2019 8:54:36 AM This report has been signed electronically.
[2019-12-13 09:00] VITALS: BP 161/58; BP 185/65; PULSE 47; RESP 18; O2SAT 98
[2019-12-13 09:05] VITALS: BP 161/58; BP 174/61; PULSE 45; RESP 18; O2SAT 96
[2019-12-13 09:10] VITALS: BP 147/53; BP 161/58; PULSE 44; RESP 18; TEMP 36.2; O2SAT 99
[2019-12-13 09:23] VITALS: BP 161/58
== END 2019-12-13 09:30 | disposition home or self-care (01) ==
LOC: EN 06:59 → AC 07:00
PROVIDERS: Visit Provider Surgery
PROC: 0DJD8ZZ Inspection of Lower Intestinal Tract, Via Natural or Artificial Opening Endoscopic (ICD-10-PCS; CPT 45378; principal; 2019-12-13 08:25)
DX: Z12.11 Encounter for screening for malignant neoplasm of colon (principal); C50.919 Malignant neoplasm of unspecified site of unspecified female breast; K64.8 Other hemorrhoids; E78.5 Hyperlipidemia, unspecified; I11.0 Hypertensive heart disease with heart failure; I50.9 Heart failure, unspecified; E11.9 Type 2 diabetes mellitus without complications; M06.9 Rheumatoid arthritis, unspecified; J45.909 Unspecified asthma, uncomplicated; G47.33 Obstructive sleep apnea (adult) (pediatric); E66.9 Obesity, unspecified; Z68.42 Body mass index [BMI] 45.0-49.9, adult; Z78.0 Asymptomatic menopausal state; Z15.02 Genetic susceptibility to malignant neoplasm of ovary; Z15.09 Genetic susceptibility to other malignant neoplasm; Z15.89 Genetic susceptibility to other disease; Z88.8 Allergy status to other drugs, medicaments and biological substances; Z88.2 Allergy status to sulfonamides; Z88.1 Allergy status to other antibiotic agents; Z88.0 Allergy status to penicillin; Z79.82 Long term (current) use of aspirin; Z79.1 Long term (current) use of non-steroidal anti-inflammatories (NSAID); Z79.899 Other long term (current) drug therapy; Z86.010 Personal history of colon polyps
CPT/HCPCS: G0105; 82962; J7120

== ENCOUNTER → 2019-12-21 16:29 | Outpatient (CLI) | payer MEDICARE, SELFPAY ==
[2019-02-16 09:03] VITALS: BMI 51.2
[2019-12-01 09:05] VITALS: BMI 46.2
[2019-12-13 07:30] VITALS: BMI 43.9
== END ==
DX: G47.33 Obstructive sleep apnea (adult) (pediatric) (principal)
CPT/HCPCS: 95811

== ENCOUNTER → 2020-01-06 09:26 | Outpatient (CLI) | payer MEDICARE, SELFPAY ==
[2019-02-16 09:03] VITALS: BMI 51.2
[2019-12-13 07:30] VITALS: BMI 43.9
== END ==
PROVIDERS: Visit Provider Nurse Practitioner Family
DX: Z46.89 Encounter for fitting and adjustment of other specified devices (principal)

== ENCOUNTER → 2020-02-21 08:31 | Outpatient (CLI) | payer MEDICARE, SELFPAY ==
[2019-02-16 09:03] VITALS: BMI 51.2
[2020-02-10 10:04] VITALS: BMI 45.4
--- NOTE | 2020-02-21 08:33 | BI_ITS ---
MAMMOGRAPHY - BILATERAL SCREENING REASON FOR EXAM: Female, 69 years old. Routine annual screening examination. PERTINENT HISTORY: Personal history of breast cancer. The patient is status post left lumpectomy with radiation therapy. Sisters with breast cancer. Aunts with breast cancer. TECHNIQUE: Digital bilateral breast miguel (3D mammographic acquisition) in the CC and MLO projections. 2-D mediolateral oblique (MLO) and craniocaudad (CC) views of both breasts were obtained. CAD: Full Field Digital Mammography with Computer Added Detection was performed. COMPARISON: Comparison is made with prior examination dated December 17, 2018 and August 04, 2017. FINDINGS: Breast Composition: There are scattered areas of fibroglandular density. There are no dominant masses or suspicious calcifications. Since prior study, there has been resection of the nodular density in the deep upper medial aspect of the right breast. Postoperative scarring is seen at the operative site. Stable appearance of the benign-appearing bilateral axillary lymph nodes. No other significant abnormalities are identified. BI/SCREEN MAMM (CAD) W/MIGUEL BILAT IMPRESSION: Status post resection of the nodule in the deep upper medial portion of the right breast as described. Mild degree of postoperative architectural distortion.. Yearly follow-up mammogram recommended. (A) ASSESSMENT CATEGORY: BIRADS Category 2: Benign. A letter regarding these results will be sent to the patient by the facility within 30 days. Approximately 10% of breast cancers are not detected by mammography. A normal mammogram should not delay biopsy of a clinically suspicious abnormality. [id number] Electronically Signed: Lefty Espinoza, at 9:59 EDT , Service support ,
== END ==
PROVIDERS: Referring Provider Internal Medicine Hematology & Oncology; Visit Provider Internal Medicine Hematology & Oncology
DX: Z12.31 Encounter for screening mammogram for malignant neoplasm of breast (principal); C50.911 Malignant neoplasm of unspecified site of right female breast
CPT/HCPCS: 77063; 77067

== ENCOUNTER → 2020-06-05 10:48 | Outpatient (CLI) | payer MEDICARE, SELFPAY ==
[2019-02-16 09:03] VITALS: BMI 51.2
[2020-05-09 15:35] VITALS: BMI 47.0
[2020-06-05 11:27] LABS: Absolute Lymphocyte Count 2.67 X10^3/uL (0.83-4.51); Basophil# 0.02 X10^3/uL; Basophil% 0.3 % (0-1); Eosinophil# 0.29 X10^3/uL; Eosinophils% 3.8 % (0-5); Hematocrit 40.7 % (37-47); Hemoglobin 13.2 g/dL (12.0-15.0); Lymphocyte # 2.67 X10^3/ul (4.0); Lymphocyte % 35.3 % (19-41); Mean Corp Hgb Conc 32.4 g/dL (32-36); Mean Corpuscular Hgb 29.7 pg (27.0-32.0); Mean Corpuscular Volume 91.7 fL (81-99); Mean Platelet Vol. 10.5 fl (6.2-12.0); Monocyte# 0.56 X10^3/uL; Monocyte% 7.4 % (0-10); NRBC Flagged by Analyzer 0 % (0-5); Neutrophil % 52.8 % (47-70); Platelet Count 165 K/mm3 (150-450); RBC Distribution Width CV 12.4 % (11.6-14.6); RBC Distribution Width SD 40.8 fl (35.1-43.9); Red Blood Count 4.44 M/mm3 (4.2-5.4); White Blood Count 7.6 K/mm3 (4.4-11.0)
[2020-06-05 12:01] LABS: AST(SGOT) 25 U/L (15-37); Alanine Aminotransfer ALT/SGPT 35 U/L (13-56); Albumin, Serum 3.5 g/dL (3.2-5.0); Alkaline Phosphatase 89 U/L (45-117); Anion Gap 6 (5-15); BUN 19 mg/dL (7-18); BUN/Creat Ratio 25.9 RATIO (10-20); Calcium,Total 9.1 mg/dL (8.5-10.1); Chloride 104 mmol/L (98-107); Cholesterol 172 mg/dL (200); Creatinine, Serum 0.74 mg/dL (0.55-1.02); EST Glomerular Filtration Rate 83 mL/min (>60); Est Glom Filt Rate - Afr Amer 100 mL/min (>60); Globulin 3.4 g/dL (2.2-4.2); Glucose 101 mg/dL (74-106); High Density Lipoprotein 40 mg/dL; Protein, Total 6.9 g/dL (6.4-8.2); Sodium Level 141 mmol/L (136-145); Triglycerides 148 mg/dL; Very Low Density Lipoprotein 30 mg/dL (5-40)
== END ==
PROVIDERS: Nurse Practitioner Family
DX: E78.5 Hyperlipidemia, unspecified (principal); E55.9 Vitamin D deficiency, unspecified; R73.03 Prediabetes; I50.9 Heart failure, unspecified; I11.0 Hypertensive heart disease with heart failure
CPT/HCPCS: 36415; 80053; 80061; 82306; 83036; 85025

== ENCOUNTER → 2020-09-15 08:32 | Outpatient (CLI) | payer MEDICARE, SELFPAY ==
[2019-02-16 09:03] VITALS: BMI 51.2
[2020-08-09 14:50] VITALS: BMI 47.0
[2020-09-15 09:18] LABS: Absolute Lymphocyte Count 2.27 X10^3/uL (0.83-4.51); Absolute Neutrophil Count 3.8 X10^3/uL (2.0-7.7); Basophil# 0.02 X10^3/uL; Basophil% 0.3 % (0-1); Eosinophil# 0.23 X10^3/uL; Eosinophils% 3.4 % (0-5); Hematocrit 43.4 % (37-47); Hemoglobin 13.8 g/dL (12.0-15.0); Lymphocyte # 2.27 X10^3/ul (4.0); Lymphocyte % 33.1 % (19-41); Mean Corp Hgb Conc 31.8 g/dL (32-36); Mean Corpuscular Hgb 29.7 pg (27.0-32.0); Mean Corpuscular Volume 93.5 fL (81-99); Mean Platelet Vol. 10.9 fl (6.2-12.0); Monocyte% 7.3 % (0-10); NRBC Flagged by Analyzer 0 % (0-5); Neutrophil # 3.81 X10^3/uL (2.7-7.7); Neutrophil % 55.6 % (47-70); Platelet Count 179 K/mm3 (150-450); RBC Distribution Width CV 12.4 % (11.6-14.6); RBC Distribution Width SD 42.8 fl (35.1-43.9); Red Blood Count 4.64 M/mm3 (4.2-5.4); White Blood Count 6.9 K/mm3 (4.4-11.0)
[2020-09-15 09:39] LABS: AST(SGOT) 33 U/L (15-37); Alanine Aminotransfer ALT/SGPT 42 U/L (13-56); Albumin, Serum 3.7 g/dL (3.2-5.0); Alkaline Phosphatase 99 U/L (45-117); Anion Gap 4 (5-15); BUN 23 mg/dL (7-18); Calcium,Total 9.3 mg/dL (8.5-10.1); Chloride 105 mmol/L (98-107); Cholesterol 183 mg/dL (200); Creatinine, Serum 0.74 mg/dL (0.55-1.02); EST Glomerular Filtration Rate 82 mL/min (>60); Est Glom Filt Rate - Afr Amer 99 mL/min (>60); Globulin 3.6 g/dL (2.2-4.2); Glucose 101 mg/dL (74-106); High Density Lipoprotein 43 mg/dL; Potassium 3.8 mmol/L (3.5-5.1); Protein, Total 7.3 g/dL (6.4-8.2); Sodium Level 139 mmol/L (136-145); Triglycerides 142 mg/dL; Very Low Density Lipoprotein 28 mg/dL (5-40)
[2020-09-15 09:41] LABS: Vitamin D,25 Hydroxy 39.3 ng/mL
[2020-09-15 09:54] LABS: Hemoglobin A1c 5.9 % (3.8-5.6)
== END ==
DX: I10 Essential (primary) hypertension (principal); R73.03 Prediabetes; E55.9 Vitamin D deficiency, unspecified; J45.909 Unspecified asthma, uncomplicated; E78.5 Hyperlipidemia, unspecified; I50.9 Heart failure, unspecified; G47.33 Obstructive sleep apnea (adult) (pediatric)
CPT/HCPCS: 36415; 80053; 80061; 82306; 83036; 85025

== ENCOUNTER → 2020-12-01 09:12 | Outpatient (CLI) | payer MEDICARE, SELFPAY ==
[2019-02-16 09:03] VITALS: BMI 51.2
[2020-08-09 14:50] VITALS: BMI 47.0
[2020-12-01 10:35] LABS: Vitamin D,25 Hydroxy 37.9 ng/mL
[2020-12-01 10:43] LABS: AST(SGOT) 29 U/L (15-37); Alanine Aminotransfer ALT/SGPT 38 U/L (13-56); Albumin, Serum 3.6 g/dL (3.2-5.0); Alkaline Phosphatase 100 U/L (45-117); Anion Gap 4 (5-15); BUN 26 mg/dL (7-18); BUN/Creat Ratio 34.9 RATIO (10-20); Calcium,Total 9.3 mg/dL (8.5-10.1); Chloride 105 mmol/L (98-107); Creatinine, Serum 0.74 mg/dL (0.55-1.02); EST Glomerular Filtration Rate 82 mL/min (>60); Est Glom Filt Rate - Afr Amer 99 mL/min (>60); Globulin 3.7 g/dL (2.2-4.2); Glucose 111 mg/dL (74-106); Potassium 3.9 mmol/L (3.5-5.1); Protein, Total 7.3 g/dL (6.4-8.2); Sodium Level 140 mmol/L (136-145); Thyroid Stim Hormone (TSH) 1.03 uIU/mL (0.358-3.74)
== END ==
PROVIDERS: Referring Provider Family Medicine
DX: R73.03 Prediabetes (principal); E55.9 Vitamin D deficiency, unspecified; R53.83 Other fatigue; E78.5 Hyperlipidemia, unspecified; I50.9 Heart failure, unspecified
CPT/HCPCS: 36415; 80053; 82306; 84439; 84443

== ENCOUNTER → 2021-02-22 12:02 | Outpatient (CLI) | payer MEDICARE, SELFPAY ==
[2019-02-16 09:03] VITALS: BMI 51.2
[2020-08-09 14:50] VITALS: BMI 47.0
[2021-02-14 13:58] VITALS: BMI 47.8
--- NOTE | 2021-02-22 12:04 | BI_ITS ---
MAMMOGRAPHY - BILATERAL SCREENING REASON FOR EXAM: Female, 70 years old. Routine annual screening examination. PERTINENT HISTORY: Personal history of breast cancer. Prior right lumpectomy with radiation treatment. Sisters with breast cancer. Aunts with breast cancer. TECHNIQUE: Digital bilateral breast miguel (3D mammographic acquisition) in the CC and MLO projections. 2-D mediolateral oblique (MLO) and craniocaudad (CC) views of both breasts were obtained. CAD: Full Field Digital Mammography with Computer Added Detection was performed. COMPARISON: Comparison is made with prior study dated 02/21/2020 and 01/15/2019. FINDINGS: Breast Composition: There are scattered areas of fibroglandular density. There are no dominant masses or suspicious calcifications. A tissue clip marker is seen in the deep upper medial portion of the right breast. Postoperative changes are seen at that site. Stable benign-appearing bilateral axillary lymph nodes. No other significant abnormalities are identified. There has been no significant change since the prior study. BI/SCRN MAMM (CAD)W/MIGUEL BILAT IMPRESSION: Stable bilateral screening mammogram. Yearly follow-up mammogram recommended. (A) ASSESSMENT CATEGORY: BIRADS Category 2: Benign. A letter regarding these results will be sent to the patient by the facility within 30 days. Approximately 10% of breast cancers are not detected by mammography. A normal mammogram should not delay biopsy of a clinically suspicious abnormality. [id number] Electronically Signed: Lefty Espinoza MD at 13:00 EDT , Service support ,
--- NOTE | 2021-02-22 12:20 | BD_ITS ---
STUDY: DUAL ENERGY X-RAY ABSORPTIOMETRY / DXA REASON FOR EXAM: Female, 70 years old. V76.12ScreeningBONE DENSITY REASON FOR EXAM TECHNIQUE: Bone Mineral Density (BMD) measurements of lumbar spine and right hip were obtained. COMPARISON: None. FINDINGS: Lumbar Spine (L1-L4): g/cm2 (1.102) / T-score (-0.7) / Z-score (1.0) Findings are suggestive of normal bone density with a low fracture risk. Right Femur Total: g/cm2 (0.917) / T-score (-0.7) / Z-score (0.8) Right Femoral Neck: g/cm2 (0.843) / T-score (-1.4) / Z-score (0.3) BD/Dexa Bone Density Study IMPRESSION: The patient is considered osteopenic as outlined below according to World Artemio Organization (WHO) criteria with a low fracture risk. Reference Information: The T-score is the number of standard deviations above or below the standard which is normal for young adults at their peak bone mineral density. The World Health Organization (WHO) interprets the T-scores as follows: Above -1 Normal bone density Between -1 and -2.5 Osteopenia Equal to / or below -2.5 Osteoporosis As a practical clinical guideline, osteopenia may be graded as follows: Mild -1 through -1.5 Moderate -1.6 through -2.0 Severe -2.1 through -2.4 The Z-score is the number of standard deviations above or below age-matched controls. A Z-score of less than -1.5 would be considered abnormal. References: 1. NIH Osteoporosis and Related Bone Diseases www osteo.org 2. International Society for Clinical Densitometry www iscd.org 3. National Osteoporosis Foundation www nof.org Electronically Signed: Lefty Espinoza MD at 15:27 EDT , Service support ,
== END ==
PROVIDERS: Referring Provider Internal Medicine Hematology & Oncology; Visit Provider Internal Medicine Hematology & Oncology
DX: Z12.31 Encounter for screening mammogram for malignant neoplasm of breast (principal); Z80.3 Family history of malignant neoplasm of breast; Z85.3 Personal history of malignant neoplasm of breast; Z79.811 Long term (current) use of aromatase inhibitors
CPT/HCPCS: 77063; 77067; 77080

== ENCOUNTER → 2021-02-28 10:30 | Outpatient (CLI) | payer MEDICARE, SELFPAY ==
[2019-02-16 09:03] VITALS: BMI 51.2
[2021-02-14 13:58] VITALS: BMI 47.8
--- NOTE | 2021-02-28 10:35 | ECHODONC_ITS ---
Reason For Study: HEARTFAILURE, ABN EKG Procedure This was a 2D Doppler, Color Flow transthoracic echocardiogram. Myocardial strain analysis was performed in this exam to aid in the assessment of cardiac function. The study was technically difficult. Exam performed in department. Left Ventricle Normal LV size. Left ventricular systolic function is normal. The estimated ejection fraction is 60 %. Stage 1 diastolic dysfunction. No regional wall motion abnormalities noted. Right Ventricle Normal RV size. Normal systolic function. Atria Normal left atrium. Normal right atrium. Mitral Valve Normal mitral valve. Tricuspid Valve Normal tricuspid valve. Aortic Valve Trisinus/trileaflet aortic valve. Pulmonic Valve The pulmonic valve is not well visualized. Great Vessels Normal aortic root. The pulmonary artery is normal size. Normal inferior vena cava. Pericardium/Pleural No pericardial effusion. MMode/2D Measurements & Calculations LVIDd: 4.6 cm IVSd: 0.95 cm Ao root diam: 3.2 cm LVIDs: 3.4 cm LVPWd: 0.92 cm RVDd: 3.1 cm FS: 26.1 % LAV(MOD-bp): 52.8 ml LA A4 area: 16.9 cm2 LA dimension(2D): 4.5 cm LAV(MOD-bp) Indexed: 27.1 ml/m2 LAV(MOD-sp2): 60.0 ml LAV(MOD-sp4): 44.8 ml RA A4 area: 9.2 cm2 Time Measurements MV dec time: 0.39 sec Doppler Measurements & Calculations MV E max will: 68.6 cm/sec Lat Peak E' Will: 6.8 cm/sec Med Peak E' Will: 3.7 cm/sec MV A max will: 132.0 cm/sec E/E' lat: 10.1 E/E' med: 18.6 MV E/A: 0.52 Ao V2 max: 138.6 cm/sec LV V1 max: 97.4 cm/sec PA V2 max: 95.2 cm/sec Ao max P.7 mmHg LV V1 max P.8 mmHg Ao V2 mean: 101.9 cm/sec LV V1 mean P.1 mmHg Ao mean P.5 mmHg LV V1 mean: 68.6 cm/sec Ao V2 VTI: 29.7 cm LV V1 VTI: 21.1 cm TR max will: 322.3 cm/sec TR max P.7 mmHg ECHO/ONC Echo Complete Interpretation Summary Normal LV size. Left ventricular systolic function is normal. The estimated ejection fraction is 60 %. Stage 1 diastolic dysfunction. The global longitudinal strain is normal. The global longitudinal strain = -19. 1 % (normal). Ordering Physician: Burrell, Griselda Referring Physician: STEVE GRANT Performed By: Ansley Schaffer RDCS, RVT
== END ==
PROVIDERS: Referring Provider Physician Assistant Medical; Visit Provider Physician Assistant Medical
DX: R00.2 Palpitations (principal); R94.31 Abnormal electrocardiogram [ECG] [EKG]
CPT/HCPCS: 93306; 93356

== ENCOUNTER → 2021-03-19 10:59 | Outpatient (CLI) | payer MEDICARE, SELFPAY ==
[2019-02-16 09:03] VITALS: BMI 51.2
[2021-02-28 13:24] VITALS: BMI 47.5
[2021-03-19 11:22] LABS: Absolute Neutrophil Count 3.4 X10^3/uL (2.0-7.7); Basophil# 0.03 X10^3/uL; Basophil% 0.4 % (0-1); Eosinophil# 0.24 X10^3/uL; Eosinophils% 3.5 % (0-5); Hematocrit 41.9 % (37-47); Hemoglobin 13.8 g/dL (12.0-15.0); Lymphocyte % 40.4 % (19-41); Mean Corp Hgb Conc 32.9 g/dL (32-36); Mean Corpuscular Hgb 30.1 pg (27.0-32.0); Mean Corpuscular Volume 91.5 fL (81-99); Mean Platelet Vol. 10.8 fl (6.2-12.0); Monocyte# 0.48 X10^3/uL; Monocyte% 6.9 % (0-10); NRBC Flagged by Analyzer 0 % (0-5); Neutrophil # 3.36 X10^3/uL (2.7-7.7); Neutrophil % 48.5 % (47-70); Platelet Count 164 K/mm3 (150-450); RBC Distribution Width CV 12.4 % (11.6-14.6); RBC Distribution Width SD 41.3 fl (35.1-43.9); Red Blood Count 4.58 M/mm3 (4.2-5.4); White Blood Count 6.9 K/mm3 (4.4-11.0)
[2021-03-19 12:04] LABS: ALB/GLOB Ratio 1.1 RATIO (0.9-2.4); AST(SGOT) 41 U/L (15-37); Alanine Aminotransfer ALT/SGPT 43 U/L (13-56); Albumin, Serum 3.7 g/dL (3.2-5.0); Alkaline Phosphatase 94 U/L (45-117); Anion Gap 8 (5-15); BUN 18 mg/dL (7-18); BUN/Creat Ratio 24.4 RATIO (10-20); Calcium,Total 9.3 mg/dL (8.5-10.1); Chloride 103 mmol/L (98-107); Creatinine, Serum 0.74 mg/dL (0.55-1.02); EST Glomerular Filtration Rate 82 mL/min (>60); Est Glom Filt Rate - Afr Amer 100 mL/min (>60); Globulin 3.4 g/dL (2.2-4.2); Glucose 107 mg/dL (74-106); Potassium 3.9 mmol/L (3.5-5.1); Protein, Total 7.1 g/dL (6.4-8.2); Sodium Level 141 mmol/L (136-145); Thyroid Stim Hormone (TSH) 1.37 uIU/mL (0.358-3.74)
== END ==
PROVIDERS: PCP Nurse Practitioner Adult Health; Referring Provider Nurse Practitioner Adult Health; Visit Provider Nurse Practitioner Adult Health
DX: E11.9 Type 2 diabetes mellitus without complications (principal); R11.2 Nausea with vomiting, unspecified
CPT/HCPCS: 36415; 80053; 84443; 85025

== ENCOUNTER → 2021-08-13 09:04 | Outpatient (CLI) | payer MEDICARE, SELFPAY ==
[2019-02-16 09:03] VITALS: BMI 51.2
[2021-08-13 09:32] LABS: Absolute Lymphocyte Count 2.02 X10^3/uL (0.83-4.51); Absolute Neutrophil Count 3.6 X10^3/uL (2.0-7.7); Basophil# 0.03 X10^3/uL; Basophil% 0.5 % (0-1); Eosinophil# 0.23 X10^3/uL; Eosinophils% 3.6 % (0-5); Hematocrit 43.2 % (37-47); Hemoglobin 14.3 g/dL (12.0-15.0); Lymphocyte # 2.02 X10^3/ul (0.83-4.51); Lymphocyte % 31.4 % (19-41); Mean Corp Hgb Conc 33.1 g/dL (32-36); Mean Corpuscular Hgb 30.6 pg (27.0-32.0); Mean Corpuscular Volume 92.3 fL (81-99); Mean Platelet Vol. 10.6 fl (6.2-12.0); Monocyte# 0.56 X10^3/uL; Monocyte% 8.7 % (0-10); NRBC Flagged by Analyzer 0 % (0-5); Neutrophil # 3.59 X10^3/uL (2.7-7.7); Neutrophil % 55.6 % (47-70); Platelet Count 177 K/mm3 (150-450); RBC Distribution Width CV 12.9 % (11.6-14.6); RBC Distribution Width SD 43.8 fl (35.1-43.9); Red Blood Count 4.68 M/mm3 (4.2-5.4); White Blood Count 6.4 K/mm3 (4.4-11.0)
[2021-08-13 10:32] LABS: Anion Gap 9 (5-15); BUN 20 mg/dL (7-18); BUN/Creat Ratio 25.2 RATIO (10-20); Calcium,Total 9.6 mg/dL (8.5-10.1); Chloride 103 mmol/L (98-107); Cholesterol 190 mg/dL (200); Creatinine, Serum 0.79 mg/dL (0.55-1.02); EST Glomerular Filtration Rate 76 mL/min (>60); Est Glom Filt Rate - Afr Amer 92 mL/min (>60); Glucose 115 mg/dL (74-106); High Density Lipoprotein 44 mg/dL; Potassium 3.9 mmol/L (3.5-5.1); Sodium Level 139 mmol/L (136-145); Triglycerides 141 mg/dL; Very Low Density Lipoprotein 28 mg/dL (5-40)
[2021-08-13 13:17] LABS: Hemoglobin A1c 5.8 % (3.8-5.6)
== END ==
PROVIDERS: PCP Nurse Practitioner Adult Health; Visit Provider Family Medicine
DX: E11.9 Type 2 diabetes mellitus without complications (principal); I11.0 Hypertensive heart disease with heart failure; I50.9 Heart failure, unspecified; E78.5 Hyperlipidemia, unspecified
CPT/HCPCS: 36415; 80048; 80061; 83036; 85025

== ENCOUNTER → 2021-10-04 09:20 | Outpatient (CLI) | payer MEDICARE, SELFPAY ==
[2019-02-16 09:03] VITALS: BMI 51.2
[2021-10-04 09:57] LABS: Absolute Lymphocyte Count 1.89 X10^3/uL (0.83-4.51); Absolute Neutrophil Count 5.3 X10^3/uL (2.0-7.7); Basophil# 0.05 X10^3/uL; Basophil% 0.6 % (0-1); Eosinophil# 0.05 X10^3/uL; Eosinophils% 0.6 % (0-5); Hematocrit 46.5 % (37-47); Hemoglobin 15.5 g/dL (12.0-15.0); Lymphocyte # 1.89 X10^3/ul (0.83-4.51); Lymphocyte % 21.8 % (19-41); Mean Corp Hgb Conc 33.3 g/dL (32-36); Mean Corpuscular Hgb 29.8 pg (27.0-32.0); Mean Corpuscular Volume 89.4 fL (81-99); Mean Platelet Vol. 11.3 fl (6.2-12.0); Monocyte# 1.31 X10^3/uL; Monocyte% 15.1 % (0-10); NRBC Flagged by Analyzer 0 % (0-5); Neutrophil # 5.33 X10^3/uL (2.7-7.7); Neutrophil % 61.4 % (47-70); POSITIVE MORPHOLOGY YES; Platelet Count 174 K/mm3 (150-450); RBC Distribution Width SD 42.9 fl (35.1-43.9); White Blood Count 8.7 K/mm3 (4.4-11.0)
[2021-10-04 09:58] LABS: Differential Indicated SCAN CRITERIA MET
[2021-10-04 10:23] LABS: ALB/GLOB Ratio 0.6 RATIO (0.9-2.4); AST(SGOT) 27 U/L (15-37); Alanine Aminotransfer ALT/SGPT 26 U/L (13-56); Alkaline Phosphatase 86 U/L (45-117); Anion Gap 9 (5-15); BUN 33 mg/dL (7-18); BUN/Creat Ratio 22.9 RATIO (10-20); Calcium,Total 9.3 mg/dL (8.5-10.1); Chloride 99 mmol/L (98-107); Creatinine, Serum 1.44 mg/dL (0.55-1.02); EST Glomerular Filtration Rate 38 mL/min (>60); Est Glom Filt Rate - Afr Amer 46 mL/min (>60); Globulin 4.8 g/dL (2.2-4.2); Glucose 135 mg/dL (74-106); Lipase 235 U/L (73-393); Potassium 3.1 mmol/L (3.5-5.1); Protein, Total 7.8 g/dL (6.4-8.2); Sodium Level 135 mmol/L (136-145); T4 Free Direct 1.45 ng/dL (0.76-1.46); Thyroid Stim Hormone (TSH) 1.92 uIU/mL (0.358-3.74)
== END ==
PROVIDERS: Referring Provider Nurse Practitioner Adult Health; Visit Provider Nurse Practitioner Adult Health
DX: R19.7 Diarrhea, unspecified (principal)
CPT/HCPCS: 36415; 80053; 82274; 83690; 84439; 84443; 85025; 87177; 87209; 87506

== ENCOUNTER 2021-10-04 16:40 | Inpatient (IN) | payer MEDICARE, SELFPAY ==
[2019-02-16 09:03] VITALS: BMI 51.2
[2021-10-04 16:44] VITALS: BP 108/61; PULSE 62; RESP 16; TEMP 35.8; O2SAT 97; BMI 42.8
[2021-10-04 18:10] LABS: Absolute Lymphocyte Count 2.56 X10^3/uL (0.83-4.51); Absolute Neutrophil Count 5.7 X10^3/uL (2.0-7.7); Basophil# 0.07 X10^3/uL; Basophil% 0.7 % (0-1); Eosinophil# 0.19 X10^3/uL; Eosinophils% 1.8 % (0-5); Hematocrit 47.2 % (37-47); Hemoglobin 15.7 g/dL (12.0-15.0); Lymphocyte # 2.56 X10^3/ul (0.83-4.51); Lymphocyte % 24.8 % (19-41); Mean Corp Hgb Conc 33.3 g/dL (32-36); Mean Corpuscular Hgb 29.6 pg (27.0-32.0); Mean Corpuscular Volume 88.9 fL (81-99); Mean Platelet Vol. 11.3 fl (6.2-12.0); Monocyte# 1.71 X10^3/uL; Monocyte% 16.6 % (0-10); NRBC Flagged by Analyzer 0 % (0-5); Neutrophil # 5.74 X10^3/uL (2.7-7.7); Neutrophil % 55.6 % (47-70); POSITIVE DIFFERENTIAL YES; Platelet Count 198 K/mm3 (150-450); RBC Distribution Width CV 13.1 % (11.6-14.6); RBC Distribution Width SD 42.6 fl (35.1-43.9); Red Blood Count 5.31 M/mm3 (4.2-5.4); White Blood Count 10.3 K/mm3 (4.4-11.0)
[2021-10-04 18:15] LABS: Differential Indicated SCAN CRITERIA MET
[2021-10-04 18:29] LABS: Anion Gap 11 (5-15); BUN 46 mg/dL (7-18); BUN/Creat Ratio 19.4 RATIO (10-20); Chloride 98 mmol/L (98-107); Creatinine, Serum 2.37 mg/dL (0.55-1.02); EST Glomerular Filtration Rate 21 mL/min (>60); Est Glom Filt Rate - Afr Amer 26 mL/min (>60); Estimated Creatinine Clearance 33.05 ml/min; Glucose 129 mg/dL (74-106); Potassium 3.3 mmol/L (3.5-5.1); Sodium Level 137 mmol/L (136-145)
[2021-10-04 18:51] LABS: Anisocytosis RARE; Macrocytosis RARE; Platelet Estimate ADEQUATE (ADEQ); Red Cell Morphology N CHROM NORMAL (NORM C&C)
--- NOTE | 2021-10-04 19:15 | EX.ED.DYSGE1 ---
HPI History of Present Illness Chief Complaint: Diarrhea Detail of Chief Complaint: Diarrhea since Informant: patient and spouse/S.O. 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 She has a history of essential hypertension, hyperlipidemia, ductal carcinoma in situ who presents because of bloody diarrhea. Blood work performed reveals acute kidney injury. Stool was positive for Campylobacter. Patient and shared a chicken [employer] sandwich from [facility] on . states the chicken did not taste right. The only difference in the sandwich was he had a hot peppers on his happen she did not. He did not become ill. She had numerous stools on Friday, Friday. She has had greater than 5 stools today. She was told there is blood in her stool. She denies fever. She does report thirst, dry mouth and lightheadedness. She has numerous antibiotic allergies which include cephalexin, clindamycin, penicillin and sulfa. She has report generalized fatigue and malaise. Prior similar symptoms: No Recent Illness/Hospitalization: No PFSH PFSH Medical History Asthma Bradycardia Breast cancer, right DCIS (ductal carcinoma in situ) Essential hypertension Hyperlipidemia Nonrheumatic mitral (valve) insufficiency Obesity Obstructive sleep apnea KRISTY (obstructive sleep apnea) Osteoarthritis Osteopenia due to cancer therapy Type 2 diabetes mellitus Home Medications aspirin 81 mg PO DAILY@0800 06/11/17 [History Last Taken 12/06/19] hydrochlorothiazide 25 mg PO DAILY 06/11/17 [History Last Taken 08/22/17 08:00] metformin 750 mg PO QHS 06/11/17 [History Last Taken 08/21/17] montelukast 10 mg PO DAILY 06/11/17 [History Last Taken 08/22/17 08:00] albuterol sulfate 2 puff INHALATION Q4H PRN PRN #1 inhaler 08/23/17 [Rx Last Taken Unknown] fluticasone propion-salmeterol 1 puff INHALATION BID PRN #1 inhaler 08/23/17 [Rx Last Taken 12/31/18 07:00] atenolol 50 mg tablet 50 mg PO DAILY #90 tab 08/12/18 [Rx Last Taken 12/13/19 0600] ergocalciferol (vitamin D2) 1,250 mcg (50,000 unit) capsule 50,000 unit PO QWEEK cap 02/10/20 [History Last Taken Unknown] lisinopril 40 mg tablet 40 mg PO DAILY #90 tab 02/10/20 [Rx Last Taken Unknown] ascorbate calcium (vitamin C) 500 mg tablet 1 gm PO DAILY tablet 02/14/21 [History Last Taken Unknown] calcium carbonate 600 mg calcium (1,500 mg) tablet 600 mg PO DAILY 02/14/21 [History Last Taken Unknown] fexofenadine 180 mg tablet 180 mg PO DAILY 02/14/21 [History Last Taken Unknown] meloxicam 15 mg tablet 7.5 mg PO BID 90 Days #90 tablet 02/14/21 [History Last Taken Unknown] omeprazole 20 mg capsule,delayed release 40 mg PO DAILY cap 02/14/21 [History Last Taken Unknown] pravastatin 40 mg tablet 40 mg PO QHS tablet 02/14/21 [History Last Taken Unknown] anastrozole 1 mg tablet 1 mg PO DAILY 90 Days #90 tab 07/09/21 [Rx Last Taken Unknown] Allergy/AdvReac Type Severity Reaction Status Date / Time cephalexin AdvReac Severe Rash Verified 09/05/21 13:31 clindamycin AdvReac Severe Rash Verified 09/05/21 13:31 Penicillins AdvReac Severe Rash Verified 09/05/21 13:31 Sulfa (Sulfonamide AdvReac Severe Rash Verified 09/05/21 13:31 Antibiotics) PLASTIC TAPE AdvReac Severe TEARS SKIN Uncoded 02/14/21 14:04 Family History Mother Heart disease Breast cancer PER PATIENT MOTHER DID NOT HAVE BREAST CANCER Aunt Breast cancer Sister Breast cancer Asthma Father Colon cancer Brother Colon cancer Other Cancer Surgical History History of ankle surgery History of breast biopsy (12/2018) History of lumpectomy of right breast (01/15/19) History of tubal ligation Hx of cholecystectomy Social History household members: spouse and children housing: house number of children: 6 Smoking Status: Never smoker second hand exposure: No alcohol intake: never substance use type: does not use caffeine: No emanuel/voodoo: Moravian seatbelt use: always do you feel safe at home: Yes ROS ROS ED Constitutional Constitutional ED: Denies chills, fever(s), subjective or sweats Eyes Eyes: Denies blurry vision, change in vision or diplopia ENT ENT ED: Denies ear pain, rhinorrhea or sore throat Cardiovascular Cardiovascular: Denies chest pain, orthopnea, palpitations or racing heartbeat Respiratory/Chest Respiratory/Chest: Denies cough, dyspnea, dyspnea on exertion or orthopnea Gastrointestinal Gastrointestinal: Reports diarrhea and nausea; Denies abdominal pain, constipation, melena or vomiting Genitourinary Genitourinary ED: Denies dysuria, hematuria or urinary frequency Musculoskeletal Musculoskeletal: Denies arthralgias, myalgias or neck pain Integumentary Denies rash Neurologic Neurologic: Reports weakness; Denies headache(s) or paresthesias Endocrine Endocrinology: Denies polydipsia, polyphagia or polyuria Allergic/Immunologic Allergic/Immunologic ED: Denies mouth swelling or urticaria EXAM Physical Exam Const Vital Signs: 10/04/21 16:44 Temperature 96.4 F L Temperature Source Temporal Pulse Rate 62 Respiratory Rate 16 Blood Pressure 108/61 Blood Pressure Mean 76 Pulse Ox 97 Oxygen Delivery Method Room Air Positive well nourished, well developed and obese General Appearance ED: well developed and other Patient does not appear well. She is slow to respond but oriented. ; Negative for cyanotic, diaphoretic, NAD or pallor Nutritional Appearance: obese HEENT Reports TM's clear and dry mucous membranes; Denies moist mucous membranes Negative for trauma or tenderness Tympanic Membrane ED: Yes TM's clear Mouth ED: Yes dry mucous membranes Mouth: dry mucous membranes Eyes PERRL and EOMs intact bilaterally General Eye ED: Negative for pale conjunctiva or scleral icterus Neck no lymphadenopathy, supple and no JVD General: Negative for tenderness Chest Wall palpation of chest normal Resp normal respiratory effort and clear to auscultation bilaterally Cardio regular rate, regular rhythm, S1 normal heart sound, S2 normal heart sound and no murmurs GI non-tender, non-distended and no masses Auscultation: hyperactive bowel sounds; Negative for normoactive bowel sounds Palpation: soft; Negative for tender, guarding or rebound tenderness present Back/Spine no CVA tenderness Cervical Spine: Negative for cervical spine tenderness Thoracic Spine / Upper Back: Negative for thoracic spinal tenderness Extremity normal to inspection General Extremety ED: Yes tenderness Neuro oriented x3, CN's II-XII intact bilaterally and no sensory deficits noted Sensorium / Orientation: Negative for alert Motor Exam: strength 5/5 throughout Psych mental status grossly normal Skin no rashes or lesions noted, no wounds and No skin turgor normal General Skin Exam: Negative for jaundice or pallor MDM MDM MDM Narrative Medical decision making narrative: Patient has evidence of acute kidney injury. Patient's stool was positive for Campylobacter. Says she had significant diarrhea with blood recommendation is treatment. Treatment is controversial. However with her having numerous stools because he acute kidney injury blood noted in stool she meets criteria for antibiotics and admission. Lab Data Attestation: I reviewed the patient's lab results. Lab results narrative: Urine is a contaminated specimen. Labs: Laboratory Results - last 24 hr 10/04/21 10/04/21 10/04/21 18:05 18:05 19:50 WBC 10.3 RBC 5.31 Hgb 15.7 H Hct 47.2 H MCV 88.9 MCH 29.6 MCHC 33.3 RDW Std Deviation 42.6 RDW Coeff of Gerardo 13.1 Plt Count 198 MPV 11.3 Immature Gran % (Auto) 0.500 Neut % (Auto) 55.6 Lymph % (Auto) 24.8 [place] % (Auto) 16.6 H Eos % (Auto) 1.8 Baso % (Auto) 0.7 Absolute Neuts (auto) 5.7 Absolute Lymphs (auto) 2.56 Nucleated RBC % 0 Differential Comment SEE COMMENT Platelet Estimate ADEQUATE RBC Morphology N CHROM Anisocytosis RARE Macrocytosis RARE Sodium 137 Potassium 3.3 L Chloride 98 Carbon Dioxide 28.0 Anion Gap 11 BUN 46 H Creatinine 2.37 H Estim Creat Clear Calc 33.05 Est GFR (MDRD) Af Amer 26 L Est GFR (MDRD) Non-Af 21 L BUN/Creatinine Ratio 19.4 Glucose 129 H Calcium 10.0 Urine Color Vidhya Urine Clarity Cloudy Urine pH 5.0 Ur Specific [place] 1.030 Urine Protein 100 H Urine Glucose (UA) 50 H Urine Ketones 5 H Urine Occult Blood 25 H Urine Nitrite Positive H Urine Bilirubin 6 H Urine Urobilinogen 4 H Ur Leukocyte Esterase 500 H Urine RBC 0-5 SEEN Urine WBC 5-10 SEEN Ur Squamous Epith Cells 10-25 SEEN Urine Bacteria 1+ Urine Mucus 0 SEEN Discharge Plan Dx/Rx/DC Orders Clinical Impression: Campylobacter diarrhea, SUNNY (acute kidney injury), Acute prerenal azotemia, Ketosis Disposition Disposition: Acute Care Hospital [facility]
[2021-10-04 19:58] LABS: Mucous, Urine 0 SEEN /hpf (<or=2+)
[2021-10-04 20:05] LABS: Color, Urine Amber (Yellow); Glucose, Dipstick 50 mg/dl (Normal); Ketone-Dipstick 5 mg/dl (Negative); Leukocyte Esterase-Dipstick 500 /ul (Negative); Nitrite-Dipstick Positive (Negative); Occult Blood-Urine 25 /ul (Negative); Protein-Dipstick 100 mg/dl (Negative); Urine Clarity Cloudy (Clear); Urine Urobilinogen 4 mg/dl (Normal)
[2021-10-04 20:26] LABS: Urine Bilirubin Dipstick 6 mg/dL (Negative)
[2021-10-04 20:27] LABS: White Blood Cells 5-10 SEEN /hpf (0-5)
[2021-10-04 20:28] LABS: Bacteria 1+ /hpf (None Seen); Red Blood Cells-Urine 0-5 SEEN /hpf (0-5); Squamous Epithelial Cells - UA 10-25 SEEN /hpf (5-10)
--- NOTE | 2021-10-04 20:51 | HP.PCM.HOS_ITS ---
HPI - General General Date of Admission: 10/04/21 HPI Narrative ALONZO VÁSQUEZ, is a 70 F with a significant history of breast cancer status post lumpectomy and chemotherapy who presents to emergency department with a hemorrhagic diarrhea that started 5 days before presentation. In a day she has about 5-6 loose stools. Seven days before presentation she and her shared chicken [employer] sandwich. At the emergency department stool test was positive for Campylobacter. She denies any nausea or vomiting. She reports anorexia and fatigue. She denies any fever or chills. [facility] Medical History Asthma Bradycardia Breast cancer, right DCIS (ductal carcinoma in situ) Essential hypertension Hyperlipidemia Hypertension Nonrheumatic mitral (valve) insufficiency Obesity Obstructive sleep apnea KRISTY (obstructive sleep apnea) Osteoarthritis Osteopenia due to cancer therapy Type 2 diabetes mellitus Home Medications aspirin 81 mg PO DAILY@0800 06/11/17 [History Last Taken 12/06/19] hydrochlorothiazide 25 mg PO DAILY 06/11/17 [History Last Taken 08/22/17 08:00] metformin 750 mg PO QHS 06/11/17 [History Last Taken 08/21/17] montelukast 10 mg PO DAILY 06/11/17 [History Last Taken 08/22/17 08:00] albuterol sulfate 2 puff INHALATION Q4H PRN PRN #1 inhaler 08/23/17 [Rx Last Taken Unknown] fluticasone propion-salmeterol 1 puff INHALATION BID PRN #1 inhaler 08/23/17 [Rx Last Taken 12/31/18 07:00] ergocalciferol (vitamin D2) 1,250 mcg (50,000 unit) capsule 50,000 unit PO QWEEK cap 02/10/20 [History Last Taken Unknown] ascorbate calcium (vitamin C) 500 mg tablet 1 gm PO DAILY tablet 02/14/21 [History Last Taken Unknown] calcium carbonate 600 mg calcium (1,500 mg) tablet 600 mg PO DAILY 02/14/21 [History Last Taken Unknown] fexofenadine 180 mg tablet 180 mg PO DAILY 02/14/21 [History Last Taken Unknown] meloxicam 15 mg tablet 7.5 mg PO BID 90 Days #90 tablet 02/14/21 [History Last Taken Unknown] omeprazole 20 mg capsule,delayed release 40 mg PO DAILY cap 02/14/21 [History Last Taken Unknown] pravastatin 40 mg tablet 40 mg PO QHS tablet 02/14/21 [History Last Taken Unknown] anastrozole 1 mg PO DAILY 10/04/21 [History Last Taken Unknown] atenolol 50 mg PO DAILY 10/04/21 [History Last Taken Unknown] lisinopril 40 mg PO DAILY 10/04/21 [History Last Taken Unknown] Allergy/AdvReac Type Severity Reaction Status Date / Time cephalexin AdvReac Severe Rash Verified 09/05/21 13:31 clindamycin AdvReac Severe Rash Verified 09/05/21 13:31 Penicillins AdvReac Severe Rash Verified 09/05/21 13:31 Sulfa (Sulfonamide AdvReac Severe Rash Verified 09/05/21 13:31 Antibiotics) PLASTIC TAPE AdvReac Severe TEARS SKIN Uncoded 02/14/21 14:04 Family History Mother Heart disease Breast cancer PER PATIENT MOTHER DID NOT HAVE BREAST CANCER Aunt Breast cancer Sister Breast cancer Asthma Father Colon cancer Brother Colon cancer Other Cancer Surgical History History of ankle surgery History of breast biopsy (12/2018) History of lumpectomy of right breast (01/15/19) History of tubal ligation Hx of cholecystectomy Social History household members: spouse and children housing: house number of children: 6 Smoking Status: Never smoker second hand exposure: No alcohol intake: never substance use type: does not use caffeine: No emanuel/jewish: Restorationism seatbelt use: always do you feel safe at home: Yes ROS ROS Narrative Constitutional: Patient reports anorexia and fatigue. Denies fever, chills, and change in weight Eyes: Denies blurry vision, change in eye color, change in vision, discharge from eye(s), double vision, erythema, eye pain, loss of vision or other HEENT: Denies abnormal hearing, dysphagia, ear pain, epistaxis, headache(s), hearing loss, nasal congestion, nasal discharge, post nasal drip, sinus pressure, sore throat or other Cardiovascular: Denies chest pain or palpitations. Denies dyspnea on exertion, orthopnea and paroxysmal nocturnal dyspnea Respiratory/Chest: Denies cough, excessive phlegm production, shortness of breath with exertion and wheezing Gastrointestinal: Patient reports diarrhea. Denies abdominal pain, coffee ground emesis, constipation, dyspepsia, hematemesis, hematochezia, loose stools, melena, nausea, vomiting or other Genitourinary: Denies burning urination, difficulty urinating, dysuria, hematuria, nocturia, urinary frequency, urinary hesitancy, urinary incontinence, urinary urgency or other Musculoskeletal: Denies arthralgias, back pain, joint pain, joint stiffness, joint swelling, myalgias, neck pain or other Neurologic: Denies abnormal gait, abnormal speech, confusion, disequilibrium, dizziness, focal weakness, headache(s), numbness, paresthesias, seizure-like activity, seizures, syncope, tingling, tremor(s) or other Psychiatric: Denies anxiety, depression, homicidal ideation, suicidal ideation or other Endocrinology: Denies change in body appearance, cold intolerance, excessive sweating, heat intolerance, polydipsia, polyuria or other Hematologic/Lymphatic: Denies anemia, easy bleeding, easy bruising, lymphadenopathy or other Integumentary: Denies rashes Allergic/Immunologic: Denies rhinitis, hives, eczema, asthma or other Vital Signs Vital Signs Vital Signs: 10/04/21 16:44 Temperature 96.4 F L Temperature Source Temporal Pulse Rate 62 Respiratory Rate 16 Blood Pressure 108/61 Blood Pressure Mean 76 Pulse Ox 97 Oxygen Delivery Method Room Air Weight Weight: 96.162 kg Body Mass Index (BMI) 42.8 Physical Exam Narrative Physical exam: General: Well-nourished, well-developed. Head: Normocephalic, atraumatic, no tenderness Eyes: PERRLA, EOMI ENT, no trauma, moist mucous membranes, no rhinorrhea Neck: Nontender, full range of motion, no spinal tenderness, deformities, step- off CVS: Regular rate and rhythm. S1-S2 present. No murmur, gallop or rub. Respiratory : clear to auscultation bilaterally, chest wall nontender, no wheezing Abdomen: Soft, nontender, nondistended, normal bowel sounds, no masses : Deferred Back: Nontender, no CVA tenderness, no midline spinal tenderness, deformities, step-offs Extremities: Nontender full range of motion, no trauma Skin: Normal color, no trauma, abrasions Neuro: Alert, oriented, cranial nerves II through XII grossly intact. Psychiatry: Normal mood. Normal affect. Not depressed. Not anxious. Results Lab / Micro Data Result Diagrams: 10/05/21 07:01 10/05/21 07:01 Labs: Laboratory Results - last 24 hr 10/04/21 18:05: WBC 10.3, RBC 5.31, Hgb 15.7 H, Hct 47.2 H, MCV 88.9, MCH 29.6, MCHC 33.3, RDW Std Deviation 42.6, RDW Coeff of Gerardo 13.1, Plt Count 198, MPV 11.3, Immature Gran % (Auto) 0.500, Neut % (Auto) 55.6, Lymph % (Auto) 24.8, [place] % (Auto) 16.6 H, Eos % (Auto) 1.8, Baso % (Auto) 0.7, Absolute Neuts (auto) 5.7, Absolute Lymphs (auto) 2.56, Nucleated RBC % 0, Differential Comment SEE COMMENT, Platelet Estimate ADEQUATE, RBC Morphology N CHROM, Anisocytosis RARE, Macrocytosis RARE 10/04/21 18:05: Sodium 137, Potassium 3.3 L, Chloride 98, Carbon Dioxide 28.0, Anion Gap 11, BUN 46 H, Creatinine 2.37 H, Estim Creat Clear Calc 33.05, Est GFR (MDRD) Af Amer 26 L, Est GFR (MDRD) Non-Af 21 L, BUN/Creatinine Ratio 19.4, Glucose 129 H, Calcium 10.0 10/04/21 19:50: Urine Color Vidhya, Urine Clarity Cloudy, Urine pH 5.0, Ur Specific [place] 1.030, Urine Protein 100 H, Urine Glucose (UA) 50 H, Urine Ketones 5 H, Urine Occult Blood 25 H, Urine Nitrite Positive H, Urine Bilirubin 6 H, Urine Urobilinogen 4 H, Ur Leukocyte Esterase 500 H, Urine RBC 0-5 SEEN, Urine WBC 5-10 SEEN, Ur Squamous Epith Cells 10-25 SEEN, Urine Bacteria 1+, Urine Mucus 0 SEEN Assessment & Plan Assessment/Plan (1) Campylobacter diarrhea: (2) SUNNY (acute kidney injury): PLAN: Campylobacter colitis Review of labs showed white count of 7.3; and with monocytosis. Given erythromycin p.o. at the emergency department. Azithromycin IV ordered inpatient. Supportive treatment with IV fluid. Trend CBC. SUNNY and dehydration Review of labs showed creatinine of 2.37. Review of labs showed baseline creatinine of less than 1. BUN of 54. BUN over creatinine of 24.5. Likely secondary to dehydration from diarrhea and poor intake. IV hydration ordered. Trend BMP. Avoid nephrotoxic's. Hypokalemia Potassium of 3.3 on presentation. Replace. Trend. DVT prophylaxis: No chemical thromboprophylaxis secondary to hemorrhagic diarrhea from coming back to infection. SCD ordered. Charges/Coding Visit Charges Inpatient E&M: 56266 Init Hosp L3
[2021-10-04 21:07] VITALS: BP 99/55; PULSE 58; RESP 18; TEMP 36.3; O2SAT 98
[2021-10-04 23:16] VITALS: BMI 43.8
[2021-10-04 23:17] VITALS: BP 111/38; PULSE 55; RESP 18; TEMP 36.8; O2SAT 98
--- NOTE | 2021-10-04 23:21 | PCS.PANDOC ---
PANDEMIC DOCUMENTATION INITIATED: Date: 06/11/2021 Time: 190
--- NOTE | 2021-10-04 23:35 | PCS.PANDOC ---
PANDEMIC DOCUMENTATION INITIATED: Date: 10/04/2021 Time:
[2021-10-05] MEDS: 0.9% Normal Saline 1,000 ML 75 ML IV ×3 (00:17→21:15)
[2021-10-05] MEDS: Potassium Chloride Oral Tablet 20 MEQ PO (00:17)
[2021-10-05 05:09] VITALS: BP 96/27; PULSE 56; RESP 18; TEMP 36.6; O2SAT 97
[2021-10-05 07:14] LABS: Absolute Lymphocyte Count 1.74 X10^3/uL (0.83-4.51); Basophil# 0.03 X10^3/uL; Basophil% 0.4 % (0-1); Eosinophil# 0.25 X10^3/uL; Eosinophils% 3.4 % (0-5); Hematocrit 40.4 % (37-47); Hemoglobin 14.1 g/dL (12.0-15.0); Lymphocyte # 1.74 X10^3/ul (0.83-4.51); Lymphocyte % 23.9 % (19-41); Mean Corp Hgb Conc 34.9 g/dL (32-36); Mean Corpuscular Hgb 30.6 pg (27.0-32.0); Mean Corpuscular Volume 87.6 fL (81-99); Mean Platelet Vol. 11.1 fl (6.2-12.0); Monocyte# 1.23 X10^3/uL; Monocyte% 16.9 % (0-10); NRBC Flagged by Analyzer 0 % (0-5); Platelet Count 160 K/mm3 (150-450); RBC Distribution Width SD 41.9 fl (35.1-43.9); Red Blood Count 4.61 M/mm3 (4.2-5.4); White Blood Count 7.3 K/mm3 (4.4-11.0)
[2021-10-05 07:49] LABS: Anion Gap 10 (5-15); BUN 54 mg/dL (7-18); BUN/Creat Ratio 24.5 RATIO (10-20); Calcium,Total 9.2 mg/dL (8.5-10.1); Chloride 103 mmol/L (98-107); EST Glomerular Filtration Rate 23 mL/min (>60); Est Glom Filt Rate - Afr Amer 28 mL/min (>60); Estimated Creatinine Clearance 36.46 ml/min; Glucose 157 mg/dL (74-106); Potassium 2.8 mmol/L (3.5-5.1); Sodium Level 136 mmol/L (136-145)
[2021-10-05 07:53] VITALS: BP 119/51; PULSE 55; RESP 16; TEMP 36.7; O2SAT 96
[2021-10-05 08:02] LABS: Magnesium 2.1 mg/dL (1.6-2.6)
[2021-10-05] MEDS: Potassium Chloride 10mEq/100mL 10 MEQ/100 ML IV.SOLN. 100 MEQ IV BOLUS ×2 (09:09→12:54)
--- NOTE | 2021-10-05 13:22 | PCM.PN.HOSP ---
Subjective Subjective Follow-up on acute kidney injury/Campylobacter gastroenteritis: Patient was seen and examined. She feels improved. She has been having less diarrhea. Denied any fever or chills. Objective Data Objective Data Vital Signs: Vital Signs Temp Pulse Resp BP Pulse Ox 98.0 F 55 L 16 119/51 L 96 10/05/21 07:53 10/05/21 07:53 10/05/21 07:53 10/05/21 07:53 10/05/21 07:53 Oxygen Delivery Method Room Air Weight: 98.475 kg Body Mass Index (BMI) 43.8 Intake & Output: Intake and Output for Last 24 Hours 10/03/21 10/04/21 10/05/21 23:59 23:59 23:59 Intake Total 355.00 / 355.00 Balance 355.00 / 355.00 Medical Nutrition Assessment Dietitian: Malnutrition Criteria Met Start: 10/05/21 12:37 Freq: Status: Active Protocol: Document 10/05/21 12:38 LIAM (Rec: 10/05/21 12:38 [facility] [id number]) Nutrition Malnutrition Evidence of Malnutrition Exists Yes Malnutrition (severe): Acute Illness/Injury Evidenced By Suboptimal Energy Intake ( Severe),Weight Loss (Severe) Clinical Problem Acute Disease or Injury Related Malnutrition Etiology related to gi dysfunction 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 Signs/Symptoms as evidenced by po intake <50% of meals and 4.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 Problem Altered Nutrient-Related Laboratory Values Etiology related to diabetes Signs/Symptoms as evidenced by gluc 157 Status Active Problem Recommendation Dietitian Recommendations/Changes Will change diet to 1800 cassandra Cardiac d/t pmhx Will change oral nutrition supplement to glucerna shake d /t diabetes and elevated gluc Lab / Micro Data Result Diagrams: 10/05/21 07:01 10/05/21 07:01 Labs: Laboratory Results - last 24 hr 10/04/21 18:05: WBC 10.3, RBC 5.31, Hgb 15.7 H, Hct 47.2 H, MCV 88.9, MCH 29.6, MCHC 33.3, RDW Std Deviation 42.6, RDW Coeff of Gerardo 13.1, Plt Count 198, MPV 11.3, Immature Gran % (Auto) 0.500, Neut % (Auto) 55.6, Lymph % (Auto) 24.8, [place] % (Auto) 16.6 H, Eos % (Auto) 1.8, Baso % (Auto) 0.7, Absolute Neuts (auto) 5.7, Absolute Lymphs (auto) 2.56, Nucleated RBC % 0, Differential Comment SEE COMMENT, Platelet Estimate ADEQUATE, RBC Morphology N CHROM, Anisocytosis RARE, Macrocytosis RARE 10/04/21 18:05: Sodium 137, Potassium 3.3 L, Chloride 98, Carbon Dioxide 28.0, Anion Gap 11, BUN 46 H, Creatinine 2.37 H, Estim Creat Clear Calc 33.05, Est GFR (MDRD) Af Amer 26 L, Est GFR (MDRD) Non-Af 21 L, BUN/Creatinine Ratio 19.4, Glucose 129 H, Calcium 10.0 10/04/21 19:50: Urine Color Vidhya, Urine Clarity Cloudy, Urine pH 5.0, Ur Specific [place] 1.030, Urine Protein 100 H, Urine Glucose (UA) 50 H, Urine Ketones 5 H, Urine Occult Blood 25 H, Urine Nitrite Positive H, Urine Bilirubin 6 H, Urine Urobilinogen 4 H, Ur Leukocyte Esterase 500 H, Urine RBC 0-5 SEEN, Urine WBC 5-10 SEEN, Ur Squamous Epith Cells 10-25 SEEN, Urine Bacteria 1+, Urine Mucus 0 SEEN 10/05/21 07:01: WBC 7.3, RBC 4.61, Hgb 14.1, Hct 40.4, MCV 87.6, MCH 30.6, MCHC 34.9, RDW Std Deviation 41.9, RDW Coeff of Gerardo 13.0, Plt Count 160, MPV 11.1, Immature Gran % (Auto) 0.400, Neut % (Auto) 55.0, Lymph % (Auto) 23.9, [place] % (Auto) 16.9 H, Eos % (Auto) 3.4, Baso % (Auto) 0.4, Absolute Neuts (auto) 4.0, Absolute Lymphs (auto) 1.74, Nucleated RBC % 0 10/05/21 07:01: Sodium 136, Potassium 2.8 L, Chloride 103, Carbon Dioxide 23.0, Anion Gap 10, BUN 54 H, Creatinine 2.20 H, Estim Creat Clear Calc 36.46, Est GFR (MDRD) Af Amer 28 L, Est GFR (MDRD) Non-Af 23 L, BUN/Creatinine Ratio 24.5 H, Glucose 157 H, Calcium 9.2 10/05/21 07:01: Magnesium 2.1 Physical Exam Narrative Physical exam: General: Alert, Oriented x3, Cooperative, No apparent distress, Well developed HEENT: Atraumatic Oral: Moist Mucosa Neck: Supple Lungs: Clear to auscultation Cardiovascular: HS I+II, regular, no murmurs Abdomen: Bowel Sounds Present, Soft, Non Tender Extremities: No edema Assessment & Plan Assessment/Plan (1) Campylobacter diarrhea: (2) SUNNY (acute kidney injury): (3) Hypokalemia: PLAN: 1. Acute GI bleed/hematochezia secondary to acute Campylobacter gastroenteritis, slowly improving Continue on azithromycin Continue on IV fluid 2. Hypokalemia, replaced, recheck in a.m. 3. SUNNY, prerenal, in a patient with baseline creatinine of less than 1, secondary to dehydration from diarrhea Continue to hold hydrochlorothiazide, lisinopril, meloxicam Continue IV fluids, repeat BMP in a.m. 4. Hypertension, controlled, continue on atenolol 5. History of breast CA status post lumpectomy, chemotherapy 6. DVT prophylaxis?on SCDs on account of hematochezia Charges/Coding Visit Charges Inpatient E&M: 94177 Subs Hosp L2
[2021-10-05] MEDS: Potassium Chloride 10mEq/100mL 10 MEQ/100 ML IV.SOLN. 60 MEQ IV BOLUS ×2 (14:23→16:20)
[2021-10-05] MEDS: Glucerna Shake 120 ML LIQUID PO ×3 (14:27→21:16)
--- NOTE | 2021-10-05 15:45 | CASEMGMT ---
RN CM [employer] CM to room to meet with patient for initial transition planning/care coordination assessment. MIKI JIMENEZ introduced self and role at [facility]. Pt voices understanding and consents to assessment at this time. Pt resting in bed in no distress at this time. @ bedside. Pt is A/O at this time and answers all questions appropriately. Care providers, pharmacy, and demographics verified/updated at this time. PCP: [facility] Specialists: Dr Rossi--oncology. Dr Newman-cardiology [facility] Insurance: [employer] [facility] Prescription Benefit: yes Living Will/HPOA: Pt does not currently have LW/HCPOA and declines info at this time. LNOK: , Pierre Living Arrangements: Lives w/ in 2-story home w/ramp entrance. FFSU. Independent. assists w/home tasks at times. Transportation: Pt states drives self and states no transportation concerns at this time. also drives DME: Has the following DME but does not use: Electric w/c, W/C, BSC, shower chair. Has a walker and just started using it a few days prior to admission d/t weakness. Denies need for further DME HHC/SNF: Hx of going to SNF in [place] in 2006--states does not remember name of SNF and thinks it has closed since then. No hx of HHC. Denies need for HHC. Pt wishes to return home and states has no concerns with going home at time of discharge. CM to follow for any discharge planning/needs. Pt voices no concerns/needs at this time. Advised pt to ask for CM if any questions/concerns/needs arise. Voices understanding. PLAN: Home. PT/OT esther pending. Bryan HERRING RN, CM
--- NOTE | 2021-10-05 15:45 | CASEMGMT ---
RN [employer] CM to room to meet with patient for initial transition planning/care coordination assessment. MIKI JIMENEZ introduced self and role at [facility]. Pt voices understanding and consents to assessment at this time. Pt resting in bed in no distress at this time. @ bedside. Pt is A/O at this time and answers all questions appropriately. Care providers, pharmacy, and demographics verified/updated at this time. PCP: [facility] Specialists: Dr Rossi--oncology. Dr Newman-cardiology [facility]erred [facility]acy: [facility] Insurance: [employer] [facility] Prescription Benefit: yes Living Will/HPOA: Pt does not currently have LW/HCPOA and declines info at this time. Pt made aware that he can contact SW as an out-pt and make appt in the future if he decides he would like to talk with someone about this or would like to utilize [facility] social work for advanced directive completion. Given [employer] card with information and contact number. Pt expresses understanding. States does not have LW or HCPOA . Interested in more information but states does not want to talk with SW at this time to complete paperwork. Provided information on advanced directives and given Social Service rac card with number to call if chooses in the future to utilize [facility] social work for advanced directive completion. Educated patient that, if patient so chooses, can come back to [facility] and meet with a SW as an outpatient to complete health care advanced directives. Patient expresses understanding. LNOK: Living Arrangements: Transportation: Pt states drives self and states no transportation concerns at this time. DME: Denies using any DME and denies needs. States has the following DME: Pt states no need for further DME at this time. HHC/SNF: Pt wishes to return home and states has no concerns with going home at time of discharge. Pt states does not smoke or drink ETOH. CM to follow for home oxygen needs and any further discharge planning/needs. Pt voices no further concerns/needs at this time. Advised pt to ask for CM if any further questions/concerns/needs arise. Voices understanding. PLAN: Home. PT/OT evals pending. Bryan HERRING RN, CM
[2021-10-05 16:52] VITALS: BP 114/54; PULSE 70; RESP 18; TEMP 36.4; O2SAT 97
[2021-10-05 21:10] VITALS: BP 125/39; PULSE 70; RESP 18; TEMP 37; O2SAT 97
[2021-10-06 03:38] VITALS: BP 144/59; PULSE 61; RESP 18; TEMP 36.8; O2SAT 97
[2021-10-06] MEDS: 0.9% Normal Saline 1,000 ML 125 ML IV (03:42)
[2021-10-06] MEDS: Albuterol 2.5 MG/3 ML VIAL.NEB. INHALATION (07:17)
[2021-10-06] MEDS: Budesonide Respules 0.5 MG/2 ML AMPUL.NEB. INHALATION (07:17)
[2021-10-06 07:18] VITALS: PULSE 72; RESP 16; O2SAT 98
[2021-10-06 07:51] LABS: Absolute Lymphocyte Count 2.17 X10^3/uL (0.83-4.51); Basophil# 0.04 X10^3/uL; Basophil% 0.6 % (0-1); Eosinophil# 0.35 X10^3/uL; Eosinophils% 5.4 % (0-5); Hematocrit 39.3 % (37-47); Hemoglobin 13.3 g/dL (12.0-15.0); Lymphocyte # 2.17 X10^3/ul (0.83-4.51); Lymphocyte % 33.7 % (19-41); Mean Corp Hgb Conc 33.8 g/dL (32-36); Mean Corpuscular Hgb 30.4 pg (27.0-32.0); Mean Corpuscular Volume 89.7 fL (81-99); Mean Platelet Vol. 11.2 fl (6.2-12.0); Monocyte# 0.83 X10^3/uL; Monocyte% 12.9 % (0-10); NRBC Flagged by Analyzer 0 % (0-5); Neutrophil # 2.99 X10^3/uL (2.7-7.7); Neutrophil % 46.5 % (47-70); Platelet Count 170 K/mm3 (150-450); RBC Distribution Width CV 12.7 % (11.6-14.6); RBC Distribution Width SD 42.4 fl (35.1-43.9); Red Blood Count 4.38 M/mm3 (4.2-5.4); White Blood Count 6.4 K/mm3 (4.4-11.0)
[2021-10-06 08:12] LABS: ALB/GLOB Ratio 0.7 RATIO (0.9-2.4); AST(SGOT) 33 U/L (15-37); Alanine Aminotransfer ALT/SGPT 33 U/L (13-56); Albumin, Serum 2.6 g/dL (3.2-5.0); Alkaline Phosphatase 72 U/L (45-117); Anion Gap 6 (5-15); BUN 36 mg/dL (7-18); Calcium,Total 9.3 mg/dL (8.5-10.1); Chloride 108 mmol/L (98-107); Creatinine, Serum 1.03 mg/dL (0.55-1.02); EST Glomerular Filtration Rate 56 mL/min (>60); Est Glom Filt Rate - Afr Amer 68 mL/min (>60); Estimated Creatinine Clearance 77.88 ml/min; Globulin 3.8 g/dL (2.2-4.2); Glucose 112 mg/dL (74-106); Magnesium 1.8 mg/dL (1.6-2.6); Potassium 3.3 mmol/L (3.5-5.1); Protein, Total 6.4 g/dL (6.4-8.2); Sodium Level 141 mmol/L (136-145)
[2021-10-06 09:24] VITALS: BP 145/55; PULSE 75; RESP 18; TEMP 36.7; O2SAT 98
[2021-10-06] MEDS: Pantoprazole Sodium 40 MG Tablet PO (09:29)
[2021-10-06] MEDS: Loratadine 10 MG Tablet PO (09:30)
[2021-10-06] MEDS: Atenolol 50 MG Tablet PO (09:30)
[2021-10-06] MEDS: Calcium (Elemental) 500 MG Tablet PO (09:30)
[2021-10-06] MEDS: Montelukast 10 MG Tablet PO (09:30)
[2021-10-06] MEDS: Anastrozole 1 MG TABLET PO (09:30)
[2021-10-06] MEDS: Ergocalciferol 1.25 MG (50, 000 UNIT) Capsule PO (09:30)
[2021-10-06] MEDS: Ascorbic Acid 500 MG Tablet 1000 MG PO (09:30)
[2021-10-06] MEDS: Potassium Chloride Oral Tablet 20 MEQ 60 MEQ PO (09:44)
--- NOTE | 2021-10-06 11:30 | PCM.DC.SUM ---
Providers Date of Admission: 10/04/21 Date of Discharge: 10/06/21 Primary Care Physician: Юлия [facility] Reason For Visit: SUNNY CAMPYLOBACTER COLITIS Diagnosis Discharge Diagnosis (1) Campylobacter diarrhea: Status: Acute Code(s): A04.5 - Campylobacter enteritis (2) SUNNY (acute kidney injury): Status: Acute Code(s): N17.9 - Acute kidney failure, unspecified (3) Hypokalemia: Status: Resolved Code(s): E87.6 - Hypokalemia (4) Severe malnutrition: Status: Acute Code(s): E43 - Unspecified severe protein-calorie malnutrition Medications at Discharge Home Medications aspirin 81 mg PO DAILY@0800 06/11/17 metformin 750 mg PO QHS 06/11/17 montelukast 10 mg PO DAILY 06/11/17 albuterol sulfate 2 puff INHALATION Q4H PRN PRN #1 inhaler 08/23/17 fluticasone propion-salmeterol 1 puff INHALATION BID PRN #1 inhaler 08/23/17 ergocalciferol (vitamin D2) 1,250 mcg (50,000 unit) capsule 50,000 unit PO QWEEK cap 02/10/20 ascorbate calcium (vitamin C) 500 mg tablet 1 gm PO DAILY tablet 02/14/21 calcium carbonate 600 mg calcium (1,500 mg) tablet 600 mg PO DAILY 02/14/21 fexofenadine 180 mg tablet 180 mg PO DAILY 02/14/21 omeprazole 20 mg capsule,delayed release 40 mg PO DAILY cap 02/14/21 pravastatin 40 mg tablet 40 mg PO QHS tablet 02/14/21 anastrozole 1 mg PO DAILY 10/04/21 atenolol 50 mg PO DAILY 10/04/21 azithromycin 500 mg PO DAILY 1 Days #1 tab 10/06/21 Hospital Course Operations None Procedures None Summary of Care Provided Minutes Spent on Discharge: 45 Hospital Course: 70-year-old female with past medical history of breast cancer status post lumpectomy chemotherapy, hypertension, type II DM who comes in with hematochezia ongoing for 5 days. Patient admits to 5-6 bloody bowel movements a day. A week prior to admission, she and her ate out and had chicken [employer] chicken sandwich. Patient is tested for Campylobacter in his stools in the ED. She was started on azithromycin. She had acute kidney injury that was present on admission. That improved with IV fluids. She had electrolyte imbalances that were replaced. Patient continued to improve. She did not have any diarrhea at discharge She was discharged to complete 3 total days of azithromycin. She was told to follow-up with a primary care doctor within a week for repeat blood work to follow-up on kidney function. Her lisinopril and hydrochlorothiazide were held during this admission account of acute kidney injury. Her meloxicam was also held. Patient was told to stay off meloxicam. She should have her blood pressure medications reviewed by her primary care doctor and decision to whether to resume lisinopril and hydrochlorothiazide. Physical Exam Narrative Physical exam: General: Alert, Oriented x3, Cooperative, No apparent distress, Well developed HEENT: Atraumatic Oral: Moist Mucosa Neck: Supple Lungs: Clear to auscultation Cardiovascular: HS I+II, regular, no murmurs Abdomen: Bowel Sounds Present, Soft, Non Tender Extremities: No edema Medical Records Data Medical Nutrition Assessment Dietitian: Malnutrition Criteria Met Start: 10/05/21 12:37 Freq: Status: Active Protocol: Document 10/05/21 12:38 LIAM (Rec: 10/05/21 12:38 [facility] [id number]) Nutrition Malnutrition Evidence of Malnutrition Exists Yes Malnutrition (severe): Acute Illness/Injury Evidenced By Suboptimal Energy Intake ( Severe),Weight Loss (Severe) Clinical Problem Acute Disease or Injury Related Malnutrition Etiology related 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 Signs/Symptoms as evidenced by po intake <50% of meals and 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 Problem Altered Nutrient-Related Laboratory Values Etiology related to diabetes Signs/Symptoms as evidenced by gluc 157 Status Active Problem Recommendation Dietitian Recommendations/Changes Will change diet to 1800 cassandra Cardiac d/t pmhx Will change oral nutrition supplement to glucerna shake d /t diabetes and elevated gluc Weight / BMI Weight Weight: 98.475 kg Body Mass Index (BMI) 43.8 ABG / Lab / Microbiology Data Result Diagrams: 10/06/21 07:05 10/06/21 07:05 Laboratory: Laboratory Results - last 24 hr 10/06/21 07:05: WBC 6.4, RBC 4.38, Hgb 13.3, Hct 39.3, MCV 89.7, MCH 30.4, MCHC 33.8, RDW Std Deviation 42.4, RDW Coeff of Gerardo 12.7, Plt Count 170, MPV 11.2, Immature Gran % (Auto) 0.900, Neut % (Auto) 46.5 L, Lymph % (Auto) 33.7, [place] % (Auto) 12.9 H, Eos % (Auto) 5.4 H, Baso % (Auto) 0.6, Absolute Neuts (auto) 3.0, Absolute Lymphs (auto) 2.17, Nucleated RBC % 0 10/06/21 07:05: Sodium 141, Potassium 3.3 L, Chloride 108 H, Carbon Dioxide 27.0, Anion Gap 6, BUN 36 H, Creatinine 1.03 H, Estim Creat Clear Calc 77.88, Est GFR (MDRD) Af Amer 68, Est GFR (MDRD) Non-Af 56 L, BUN/Creatinine Ratio 35.0 H, Glucose 112 H, Calcium 9.3, Magnesium 1.8, Total Bilirubin 0.60, AST 33, ALT 33, Alkaline Phosphatase 72, Total Protein 6.4, Albumin 2.6 L, Globulin 3.8, Albumin/Globulin Ratio 0.7 L D/C Instructions Discharge Diet: Low fat / Low cholesterol and 2000 mg Sodium Diet Meaningful Use Info Meaningful Use Diagnoses (Choose all that apply): None applicable Discharge Plan Admission Admit Date/Time: 10/04/21 20:43 Primary Reason for Your Visit: Acute campylobacter gastroenteritis Attending Provider: Demetra Felipe [facility] Inst[facility] Additional Instructions / Restrictions: Continue to keep yourself hydrated. Complete your antibiotic. Take note of changes to your medications. Measure your blood pressure every day. You need to get repeat blood work done within a week to follow-up on your kidney function. Your primary care doctor may resume your blood pressure medications were held during the hospital because of your kidney function. Do not take any ibuprofen or Aleve without let your doctor know. Discharge Orders/Prescriptions Prescriptions: New azithromycin 500 mg tablet 500 mg PO DAILY 1 Days Qty: 1 RF: 0 Continued pravastatin 40 mg tablet 40 mg PO QHS RF: 0 omeprazole 20 mg capsule,delayed release(DR/EC) 40 mg PO DAILY RF: 0 calcium carbonate [Calcium 600] 600 mg calcium (1,500 mg) tablet 600 mg PO DAILY RF: 0 fexofenadine [Rubi Allergy] 180 mg tablet 180 mg PO DAILY RF: 0 ascorbate calcium (vitamin C) 500 mg tablet 1 gm PO DAILY RF: 0 aspirin 81 MG tablet 81 mg PO DAILY@0800 RF: 0 montelukast 10 MG tablet 10 mg PO DAILY RF: 0 metformin 750 MG tablet extended release 24 hr 750 mg PO QHS RF: 0 ergocalciferol (vitamin D2) 1,250 mcg (50,000 unit) capsule 50,000 unit PO QWEEK RF: 0 fluticasone propion-salmeterol 1 PUFF inhaler 1 puff INHALATION BID PRN (Reason: Sob &/Or Wheezing) Qty: 1 RF: 0 albuterol sulfate 1 INHALER inhaler 2 puff INHALATION Q4H PRN PRN (Reason: Sob &/Or Wheezing) Qty: 1 RF: 0 anastrozole 1 mg tablet 1 mg PO DAILY RF: 0 atenolol 50 mg tablet 50 mg PO DAILY RF: 0 Discontinued meloxicam 15 mg tablet 7.5 mg PO BID 90 Days Qty: 90 RF: 0 hydrochlorothiazide 25 MG tablet 25 mg PO DAILY RF: 0 lisinopril 40 mg tablet 40 mg PO DAILY RF: 0 [facility] - Disposition Discharge Orders: Discharge Patient (Routine); Ordered 10/06/21 Ordered By: Dr. Demetra Felipe Charges/Coding Visit Charges Inpatient E&M: 73143 Disch Hosp
[2021-10-06 14:06] VITALS: BP 135/56; PULSE 65; RESP 20; TEMP 36.6; O2SAT 99
== END 2021-10-06 14:14 | disposition short-term general hospital (02) | DRG 372 ==
LOC: ED 20:59 → MS3 21:02
PROVIDERS: Admitting Provider Hospitalist; Emergency Provider Emergency Medicine; Visit Provider Internal Medicine
DX: A04.5 Campylobacter enteritis (principal); N17.9 Acute kidney failure, unspecified; E11.9 Type 2 diabetes mellitus without complications; E78.5 Hyperlipidemia, unspecified; M19.90 Unspecified osteoarthritis, unspecified site; G47.33 Obstructive sleep apnea (adult) (pediatric); I10 Essential (primary) hypertension; E87.6 Hypokalemia; E66.9 Obesity, unspecified; Z80.0 Family history of malignant neoplasm of digestive organs; Z92.21 Personal history of antineoplastic chemotherapy; Z90.49 Acquired absence of other specified parts of digestive tract; Z92.89 Personal history of other medical treatment; Z79.2 Long term (current) use of antibiotics; Z79.82 Long term (current) use of aspirin; Z85.3 Personal history of malignant neoplasm of breast; Z79.84 Long term (current) use of oral hypoglycemic drugs; M81.8 Other osteoporosis without current pathological fracture; Z80.3 Family history of malignant neoplasm of breast; Z82.49 Family history of ischemic heart disease and other diseases of the circulatory system; Z88.1 Allergy status to other antibiotic agents; Z98.51 Tubal ligation status
CPT/HCPCS: 36415; 80048; 80053; 81001; 82274; 83690; 83735; 84439; 84443; 85025; 87177; 87209; 87506; 94640; 97802; 99284; J7030; A4216

== ENCOUNTER → 2021-10-15 10:47 | Outpatient (CLI) | payer MEDICARE, SELFPAY ==
[2019-02-16 09:03] VITALS: BMI 51.2
[2021-10-15 11:55] LABS: Absolute Lymphocyte Count 2.38 X10^3/uL (0.83-4.51); Basophil# 0.05 X10^3/uL; Basophil% 0.7 % (0-1); Eosinophil# 0.18 X10^3/uL; Eosinophils% 2.5 % (0-5); Hematocrit 39.7 % (37-47); Hemoglobin 12.8 g/dL (12.0-15.0); Lymphocyte # 2.38 X10^3/ul (0.83-4.51); Lymphocyte % 33.7 % (19-41); Mean Corp Hgb Conc 32.2 g/dL (32-36); Mean Corpuscular Hgb 29.8 pg (27.0-32.0); Mean Corpuscular Volume 92.3 fL (81-99); Mean Platelet Vol. 10.9 fl (6.2-12.0); Monocyte# 0.41 X10^3/uL; Monocyte% 5.8 % (0-10); NRBC Flagged by Analyzer 0 % (0-5); Neutrophil # 4.02 X10^3/uL (2.7-7.7); Neutrophil % 56.9 % (47-70); Platelet Count 195 K/mm3 (150-450); RBC Distribution Width CV 12.8 % (11.6-14.6); RBC Distribution Width SD 42.9 fl (35.1-43.9); White Blood Count 7.1 K/mm3 (4.4-11.0)
[2021-10-15 12:20] LABS: ALB/GLOB Ratio 0.8 RATIO (0.9-2.4); AST(SGOT) 31 U/L (15-37); Alanine Aminotransfer ALT/SGPT 35 U/L (13-56); Albumin, Serum 3.1 g/dL (3.2-5.0); Alkaline Phosphatase 83 U/L (45-117); Anion Gap 9 (5-15); BUN 16 mg/dL (7-18); BUN/Creat Ratio 22.4 RATIO (10-20); Calcium,Total 9.4 mg/dL (8.5-10.1); Chloride 104 mmol/L (98-107); Creatinine, Serum 0.71 mg/dL (0.55-1.02); EST Glomerular Filtration Rate 86 mL/min (>60); Est Glom Filt Rate - Afr Amer 104 mL/min (>60); Globulin 3.9 g/dL (2.2-4.2); Glucose 97 mg/dL (74-106); Potassium 4.1 mmol/L (3.5-5.1); Sodium Level 142 mmol/L (136-145)
== END ==
PROVIDERS: Referring Provider Nurse Practitioner Adult Health; Visit Provider Nurse Practitioner Adult Health
DX: A04.5 Campylobacter enteritis (principal)
CPT/HCPCS: 36415; 80053; 85025

== ENCOUNTER 2022-01-10 10:11 | Outpatient (CLI) | payer MEDICARE, SELFPAY ==
[2019-02-16 09:03] VITALS: BMI 51.2
[2022-01-10 11:00] LABS: Microalbumin,Random Urine 21.4 mg/L (NO RANGE EST.); Microalbumin:Creatinine Ratio 23.1 mg/g CRE (<30 mg/g CRE)
[2022-01-10 11:10] LABS: Cholesterol 191 mg/dL (200); High Density Lipoprotein 44 mg/dL; T4 Free Direct 1.05 ng/dL (0.76-1.46); Thyroid Stim Hormone (TSH) 1.74 uIU/mL (0.358-3.74); Triglycerides 163 mg/dL; Very Low Density Lipoprotein 33 mg/dL (5-40)
[2022-01-10 11:36] LABS: Vitamin B12 477 pg/mL (211-911)
== END 2022-01-10 23:59 | disposition home or self-care (01) ==
LOC: LAB 10:13
DX: L63.9 Alopecia areata, unspecified (principal); E11.9 Type 2 diabetes mellitus without complications
CPT/HCPCS: 36415; 80061; 82043; 82570; 82607; 84439; 84443

== ENCOUNTER → 2022-02-25 | Outpatient (CLI) | payer MEDICARE, SELFPAY ==
[2019-02-16 09:03] VITALS: BMI 51.2
--- NOTE | 2022-02-25 09:08 | BI_ITS ---
MAMMOGRAPHY - BILATERAL SCREENING REASON FOR EXAM: Female, 71 years old. Routine annual screening examination. PERTINENT HISTORY: Personal history of breast cancer. Prior right lumpectomy. Sisters with breast cancer. Aunts with breast cancer. TECHNIQUE: Digital bilateral breast miguel (3D mammographic acquisition) in the CC and MLO projections. 2-D mediolateral oblique (MLO) and craniocaudad (CC) views of both breasts were obtained. CAD: Full Field Digital Mammography with Computer Added Detection was performed. COMPARISON: Comparison is made with prior study dated 02/22/2021 and 02/21/2020. FINDINGS: Breast Composition: There are scattered areas of fibroglandular density. There are no dominant masses or suspicious calcifications. A patient marker is once again seen in the deep upper medial aspect of the right breast. Postoperative changes are seen at that site. Stable small benign-appearing bilateral axillary lymph nodes. No other significant abnormalities are identified. There has been no significant change since the prior study. BI/SCRN MAMM (CAD)W/MIGUEL BILAT IMPRESSION: Stable bilateral screening mammogram. Yearly follow-up mammogram recommended. (A) ASSESSMENT CATEGORY: BIRADS Category 2: Benign. A letter regarding these results will be sent to the patient by the facility within 30 days. Approximately 10% of breast cancers are not detected by mammography. A normal mammogram should not delay biopsy of a clinically suspicious abnormality. [id number] Electronically Signed: Lefty Espinoza MD at 10:01 EDT ,
== END | disposition home or self-care (01) ==
LOC: OPBI 09:07
PROVIDERS: Referring Provider Internal Medicine Hematology & Oncology; Visit Provider Internal Medicine Hematology & Oncology
DX: Z12.31 Encounter for screening mammogram for malignant neoplasm of breast (principal)
CPT/HCPCS: 77063; 77067

== ENCOUNTER → 2022-04-22 | Outpatient (CLI) | payer MEDICARE, SELFPAY ==
[2019-02-16 09:03] VITALS: BMI 51.2
[2022-04-22 16:21] LABS: Absolute Lymphocyte Count 2.95 X10^3/uL (0.83-4.51); Absolute Neutrophil Count 4.3 X10^3/uL (2.0-7.7); Basophil# 0.03 X10^3/uL; Basophil% 0.4 % (0-1); Eosinophil# 0.24 X10^3/uL; Hematocrit 41.7 % (37-47); Lymphocyte # 2.95 X10^3/ul (0.83-4.51); Lymphocyte % 36.4 % (19-41); Mean Corp Hgb Conc 33.6 g/dL (32-36); Mean Corpuscular Volume 92.3 fL (81-99); Mean Platelet Vol. 11.8 fl (6.2-12.0); Monocyte# 0.61 X10^3/uL; Monocyte% 7.5 % (0-10); NRBC Flagged by Analyzer 0 % (0-5); Neutrophil # 4.26 X10^3/uL (2.7-7.7); Neutrophil % 52.5 % (47-70); Platelet Count 167 K/mm3 (150-450); RBC Distribution Width CV 12.8 % (11.6-14.6); RBC Distribution Width SD 43.3 fl (35.1-43.9); Red Blood Count 4.52 M/mm3 (4.2-5.4); White Blood Count 8.1 K/mm3 (4.4-11.0)
[2022-04-22 16:57] LABS: AST(SGOT) 42 U/L (15-37); Alanine Aminotransfer ALT/SGPT 42 U/L (13-56); Albumin, Serum 3.6 g/dL (3.2-5.0); Alkaline Phosphatase 81 U/L (45-117); Anion Gap 6 (5-15); BUN 22 mg/dL (7-18); Calcium,Total 9.5 mg/dL (8.5-10.1); Chloride 106 mmol/L (98-107); Creatinine, Serum 0.85 mg/dL (0.55-1.02); EST Glomerular Filtration Rate 70 mL/min (>60); Est Glom Filt Rate - Afr Amer 85 mL/min (>60); Globulin 3.7 g/dL (2.2-4.2); Glucose 116 mg/dL (74-106); Protein, Total 7.3 g/dL (6.4-8.2); Sodium Level 140 mmol/L (136-145); Thyroid Stim Hormone (TSH) 1.54 uIU/mL (0.358-3.74)
[2022-04-25 15:57] LABS: Vitamin D 1,25-Dihydroxy 43.8 pg/mL (24.8-81.5)
== END | disposition home or self-care (01) ==
LOC: LAB 15:02
PROVIDERS: Referring Provider Physician Assistant Medical; Visit Provider Physician Assistant Medical
DX: R53.83 Other fatigue (principal); I10 Essential (primary) hypertension
CPT/HCPCS: 80053; 82652; 84443; 85025

== ENCOUNTER → 2022-08-29 | Outpatient (CLI) | payer MEDICARE, SELFPAY ==
[2019-02-16 09:03] VITALS: BMI 51.2
--- NOTE | 2022-08-29 10:04 | MRI_ITS ---
STUDY: BILATERAL BREAST MR WITHOUT AND WITH CONTRAST REASON FOR EXAM: Female, 71 years old. History of right breast cancer with lumpectomy in 2019. 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 cancer. TECHNIQUE: Multi-sequence multi-echo imaging of both breasts was performed with a dedicated breast coil. T1-weighted and T2-weighted images were performed before the administration of contrast. T1-weighted images were also performed after the intravenous administration of 19ml of Clariscan contrast. COMPARISON: Bilateral mammograms dated February 25, 2022. FINDINGS: RIGHT BREAST: The breast tissue is The breasts are almost entirely fatty. with minimal background enhancement. There are no abnormal enhancing masses or areas of non-mass enhancement in the right breast. LEFT BREAST: The breast tissue is The breasts are almost entirely fatty. with minimal background enhancement. 11 mm in diameter lobulated enhancing mass 9 cm behind the nipple and 3.6 cm above the nipple at the 12:00 position. No definite mammographic correlate although there is slight increased tissue at the 12:00 position in the left breast in this general vicinity. Patient should return for compression spot views of the 12:00 position of the left breast followed by a second look ultrasound for further evaluation. Normal lymph nodes in both axillae. There is no abnormality in the visualized regions of the chest or liver. MRI/Breast Bilateral W/O and W IMPRESSION: 11 mm in diameter enhancing lobular lesion at the 12:00 position of the left breast for which further workup, as outlined above, is recommended. CATEGORY: BIRADS Category 0: Incomplete. Need additional imaging evaluation. A letter regarding these results will be sent to the patient by the facility within 30 days. Electronically Signed: Jayden Bo, at 13:53 EDT ,
[2022-08-29 10:55] LABS: CREATININE FINGERSTICK < 0.9 mg/dL (0.55-1.02); EGFR FINGERSTICK > 60.0000 mL/min (>60)
== END | disposition home or self-care (01) ==
PROVIDERS: Referring Provider Internal Medicine Hematology & Oncology; Visit Provider Internal Medicine Hematology & Oncology
DX: D05.10 Intraductal carcinoma in situ of unspecified breast (principal); Z15.01 Genetic susceptibility to malignant neoplasm of breast; Z85.3 Personal history of malignant neoplasm of breast
CPT/HCPCS: 77049; A9575; A4216; C8908

== ENCOUNTER → 2022-09-03 | Outpatient (CLI) | payer MEDICARE, SELFPAY ==
[2019-02-16 09:03] VITALS: BMI 51.2
[2022-09-03 12:49] LABS: AST(SGOT) 47 U/L (15-37); Alanine Aminotransfer ALT/SGPT 52 U/L (13-56); Albumin, Serum 3.6 g/dL (3.2-5.0); Alkaline Phosphatase 81 U/L (45-117); Anion Gap 7 (5-15); BUN 23 mg/dL (7-18); BUN/Creat Ratio 28.6 RATIO (10-20); Calcium,Total 9.3 mg/dL (8.5-10.1); Chloride 106 mmol/L (98-107); EST Glomerular Filtration Rate 74 mL/min (>60); Est Glom Filt Rate - Afr Amer 90 mL/min (>60); Globulin 3.6 g/dL (2.2-4.2); Glucose 103 mg/dL (74-106); Potassium 4.2 mmol/L (3.5-5.1); Protein, Total 7.2 g/dL (6.4-8.2); Sodium Level 142 mmol/L (136-145)
[2022-09-03 12:51] LABS: Absolute Lymphocyte Count 3.07 X10^3/uL (0.83-4.51); Absolute Neutrophil Count 4.2 X10^3/uL (2.0-7.7); Basophil# 0.04 X10^3/uL; Basophil% 0.5 % (0-1); Eosinophil# 0.29 X10^3/uL; Eosinophils% 3.6 % (0-5); Hematocrit 41.3 % (37-47); Hemoglobin 13.7 g/dL (12.0-15.0); Lymphocyte # 3.07 X10^3/ul (0.83-4.51); Lymphocyte % 37.6 % (19-41); Mean Corp Hgb Conc 33.2 g/dL (32-36); Mean Corpuscular Hgb 30.5 pg (27.0-32.0); Mean Platelet Vol. 10.9 fl (6.2-12.0); Monocyte# 0.57 X10^3/uL; NRBC Flagged by Analyzer 0 % (0-5); Neutrophil # 4.16 X10^3/uL (2.7-7.7); Neutrophil % 50.9 % (47-70); Platelet Count 173 K/mm3 (150-450); RBC Distribution Width CV 12.4 % (11.6-14.6); RBC Distribution Width SD 41.9 fl (35.1-43.9); Red Blood Count 4.49 M/mm3 (4.2-5.4); White Blood Count 8.2 K/mm3 (4.4-11.0)
== END | disposition home or self-care (01) ==
LOC: LAB 12:21
PROVIDERS: Referring Provider Internal Medicine Hematology & Oncology; Visit Provider Internal Medicine Hematology & Oncology
DX: E04.9 Nontoxic goiter, unspecified (principal)
CPT/HCPCS: 36415; 80053; 85025

== ENCOUNTER → 2022-09-05 | Outpatient (CLI) | payer MEDICARE, SELFPAY ==
[2019-02-16 09:03] VITALS: BMI 51.2
--- NOTE | 2022-09-05 14:17 | US_ITS ---
STUDY: ULTRASOUND BREAST - LEFT REASON FOR EXAM: Female, 71 years old. Abnormal screening mammogram. TECHNIQUE: Axial and longitudinal images of the LEFT breast were performed with a high resolution ultrasound transducer. # OF IMAGES: 25 COMPARISON: Comparison is made with prior mammogram done earlier in the day as well as prior MRI dated 08/29/2022. FINDINGS: LEFT Breast: There is a 6 mm x 4 mm x 3 mm hypoechoic irregular nodule at the 1 o''clock position of the breast at 3 cm from the nipple. Punctate calcifications are seen. Biopsy recommended. US/Breast Limited Unilateral IMPRESSION: 6 mm x 4 mm x 3 mm suspicious nodule at 1 o''clock position of the breast at 3 cm from the nipple. Biopsy recommended. ASSESSMENT CATEGORY: BIRADS Category 4: Suspicious - Biopsy Should Be Considered. A letter regarding these results will be sent to the patient by the facility within 30 days. Electronically Signed: Lefty Espinoza MD at 8:10 EST ,
--- NOTE | 2022-09-05 14:17 | BI_ITS ---
MAMMOGRAPHY - UNILATERAL DIAGNOSTIC: LEFT BREAST REASON FOR EXAM: Female, 71 years old. Follow-up to abnormal recent MRI of the breast. PERTINENT HISTORY: Personal history of breast cancer. Prior right lumpectomy and radiation therapy. Sisters with breast cancer. TECHNIQUE: Digital unilateral breast rai (3D mammographic acquisition) in the CC and MLO projections. 2-D mediolateral oblique (MLO) and craniocaudad (CC) views as well as compression spot views of the left breast were obtained. CAD: Full Field Digital Mammography with Computer Added Detection was performed. COMPARISON: Comparison is made with prior study of 02/25/2022 and prior MRI of the breasts dated 08/29/2022. FINDINGS: Breast Composition: There are scattered areas of fibroglandular density. Persistent 11 mm slightly spiculated nodule in the central upper aspect of the left breast. Correlation with ultrasound is recommended. No other significant abnormalities are identified. BI/DIAG MAMM W/CAD, UNILAT IMPRESSION: Persistent 11 mm slightly distended nodule in the central upper aspect of the left breast correlation with ultrasound is recommended. ASSESSMENT CATEGORY: BIRADS Category 0: Incomplete. Need additional imaging evaluation. A letter regarding these results will be sent to the patient by the facility within 30 days. Approximately 10% of breast cancers are not detected by mammography. A normal mammogram should not delay biopsy of a clinically suspicious abnormality. Electronically Signed: Lefty Espinoza MD at 8:08 EST ,
== END | disposition home or self-care (01) ==
LOC: OPBI 14:16
PROVIDERS: Visit Provider Internal Medicine Hematology & Oncology
DX: N63.25 Unspecified lump in the left breast, overlapping quadrants (principal); Z80.3 Family history of malignant neoplasm of breast
CPT/HCPCS: 76642; 77061; 77065; G0279

== ENCOUNTER → 2022-09-18 | Outpatient (CLI) | payer MEDICARE, SELFPAY ==
[2019-02-16 09:03] VITALS: BMI 51.2
--- NOTE | 2022-09-18 | BRBX_PTH ---
PATIENT: ALONZO VÁSQUEZ LOC: [facility] U#:[id number] AGE/SX: 71/F ROOM: RE09/18/[address]: Dr. Eder Castano MD : [id number] BED: DIS: 09/18/2022 SPEC #: [id number] RECD: 09/18/22 08:47 STATUS: GARCIA NYA #: [id number] MAXIMINO: 09/18/22 00:[address]: Eder Castano DEPT: SURGICAL PATHOLOGY RECD BY: Lisette Mccain ENTERED: 09/18/22 10:01 SP TYPE: BREAST BX OTHR DR: Юлия [facility] Tissues: Left breast, NOS Procedures: Surgery Specimen Level IV HEADER OPERATION: Ultrasound-guided left breast biopsy PRE-OP DIAGNOSIS: Left breast mass TISSUE SUBMITTED: Left breast mass ISCHEMIC TIME: <1 minute FIXATION TIME: 34.5 hours MICROSCOPIC DIAGNOSIS Left breast mass, ultrasound-guided core biopsy: Fragments of benign breast tissue with focal dense fibrosis. Negative for atypia or malignancy. See comment. COREY:brennan 09/20/2022 COMMENT Correlation with clinical, radiologic findings and appropriate follow up are necessary. MICROSCOPIC DESCRIPTION Slides are reviewed. GROSS DESCRIPTION Received in fixative is one container labeled with the patient's name and designated left breast mass. The specimen consists of multiple elongated fragments of montes-yellow fibroadipose tissue that in aggregate measure 1 x 0.2 x 0.1 cm. The entire specimen is submitted in one cassette. / COREY:brennan 09/18/2022 TC:1 CPT: 55939
--- NOTE | 2022-09-18 07:01 | US_ITS ---
UNILATERAL IR BREAST BIOPSY WITH CLIP PLACEMENT: LEFT BREAST REASON FOR EXAM: Female, 71 years old. Hypoechoic left breast mass for which biopsy was recommended. PERTINENT HISTORY: Non-contributory. TECHNIQUE: Multiple ultrasound images were obtained identifying biopsy of the mass at the 1:00 position of the left breast 3 cm from the nipple.: COMPARISON: Prior unilateral breast ultrasound dated September 11, 2022 and unilateral left diagnostic mammogram dated September 11, 2022. FINDINGS: Multiple images of the left breast show a hypoechoic lesion with biopsy images and clip placement. No complications. US/US Breast Biopsy 1st Lesion IMPRESSION: Documentation of biopsy of the left breast as described. Electronically Signed: Jayden Bo, at 11:17 EST ,
--- NOTE | 2022-09-18 07:57 | PCM.OPRPT ---
Report of Operation Date of Procedure: 09/18/22 Pre-Operative Diagnosis: Left breast abnormal mammogram Post-Operative Diagnosis: Same Surgery/Procedure Performed:: Ultrasound-guided left breast core needle biopsy Specimen's removed: Left breast biopsy Description of Procedure: The patient's left breast was imaged and the spot was localized. The area lateral to this was prepped and draped and then injected with local anesthetic. A small johnny was made with a scalpel. Under ultrasound guidance a 14-gauge biopsy needle was placed into the mass and biopsy was obtained. The clip was then placed into the mass. Next a Steri-Strip bandage were placed. Patient tolerated the procedure well.
== END | disposition home or self-care (01) ==
PROVIDERS: Visit Provider Surgery
DX: R92.8 Other abnormal and inconclusive findings on diagnostic imaging of breast (principal)
CPT/HCPCS: 19083; 88305

== ENCOUNTER → 2023-02-26 | Outpatient (CLI) | payer MEDICARE, SELFPAY ==
[2019-02-16 09:03] VITALS: BMI 51.2
--- NOTE | 2023-02-26 08:18 | US_ITS ---
STUDY: ULTRASOUND BREAST - LEFT REASON FOR EXAM: Female, 72 years old. Status post left ultrasound-guided breast biopsy. TECHNIQUE: Axial and longitudinal images of the LEFT breast were performed with a high resolution ultrasound transducer. # OF IMAGES: 15 COMPARISON: Comparison is made with prior sonogram dated September 05, 2022 and prior mammogram done earlier today. FINDINGS: LEFT Breast: There is a 5 mm x 3 mm x 3 mm well-defined hypoechoic nodule at the 1:00 position of the breast at 3 cm from the nipple. A clip marker is seen within it. US/Breast Limited Unilateral IMPRESSION: Stable 5 mm x 3 mm x 2 mm hypoechoic solid nodule at the 1:00 position of the breast at 3 cm from nipple. A tissue clip marker is seen within it from prior biopsy. ASSESSMENT CATEGORY: BIRADS Category 2: Benign. A letter regarding these results will be sent to the patient by the facility within 30 days. Electronically Signed: Lefty Espinoza MD at 9:26 EDT ,
--- NOTE | 2023-02-26 08:18 | BI_ITS ---
MAMMOGRAPHY - BILATERAL SCREENING REASON FOR EXAM: Female, 72 years old. Routine annual screening examination. PERTINENT HISTORY: Personal history of breast cancer. Sisters with breast cancer. Aunts with breast cancer. Prior right lumpectomy with radiation treatment. TECHNIQUE: Digital bilateral breast miguel (3D mammographic acquisition) in the CC and MLO projections. 2-D mediolateral oblique (MLO) and craniocaudad (CC) views of both breasts were obtained. CAD: Full Field Digital Mammography with Computer Added Detection was performed. COMPARISON: Comparison is made with prior study of February 25, 2022 and February 22, 2021. FINDINGS: Breast Composition: There are scattered areas of fibroglandular density. There are no dominant masses or suspicious calcifications. A tissue clip marker is once again seen in the deep upper medial aspect of the right breast. Postoperative scarring is seen at that site. Stable appearance of the bilateral axillary lymph nodes. No other significant abnormalities are identified. There has been no significant change since the prior study. BI/SCRN MAMM (CAD)W/MIGUEL BILAT IMPRESSION: Stable bilateral screening mammogram. Yearly follow-up mammogram recommended. (A) ASSESSMENT CATEGORY: BIRADS Category 2: Benign. A letter regarding these results will be sent to the patient by the facility within 30 days. Approximately 10% of breast cancers are not detected by mammography. A normal mammogram should not delay biopsy of a clinically suspicious abnormality. [id number] Electronically Signed: Lefty Espinoza MD at 9:55 EDT ,
== END | disposition home or self-care (01) ==
PROVIDERS: Referring Provider Surgery; Visit Provider Internal Medicine Hematology & Oncology
DX: Z12.31 Encounter for screening mammogram for malignant neoplasm of breast (principal); R92.8 Other abnormal and inconclusive findings on diagnostic imaging of breast; Z85.841 Personal history of malignant neoplasm of brain; Z80.3 Family history of malignant neoplasm of breast
CPT/HCPCS: 76642; 77063; 77067

== ENCOUNTER 2023-06-02 17:30 | Outpatient (RCR) | payer MEDICARE, SELFPAY ==
[2019-02-16 09:03] VITALS: BMI 51.2
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
--- NOTE | 2023-06-02 18:05 | HP.PTDCSUM ---
Discharge Summary D/C summary: It has been my pleasure to treat ALONZO VÁSQUEZ referred by Dr. Jony Taveras DO, with the diagnosis of R knee OA for a total of 10 visit(s). Discharge Date: 06/02/23 Please see the following information for a summary of their discharge status. Subjective Subjective: Pt. reports overall doing better. Pt. reports being 65% better. Pt. is compliant with HEP for both aquatics and land. Pt. reports doing exercises at home as well. Pain R knee: Pain Intensity (Out of 10): 2 Overall Improvement % Improvement: 65 Objective Objective/Function: ROM: R knee 0-8-110deg, L knee 0-6-117deg. MMT: RLE: knee: ext: 32.4#, flexion 21.3#; LLE: knee: ext 29.7#, flexion 19.4#. GAIT: Pt ambulates without AD. Pt. has lateral hip sway, but is better. Pt. overall doing better. She is to see physician later this month. I talked with her about contining aquatic exercises in the pool either in the gym or at local pool. Pt. consents to this, but also plans on doing exercises on home as well. Goals Goal 1:: LTG: Pt. to be I with HEP in aquatic setting. Goal Progress: Goal Met Goal 2:: STG: Pt. to be able to walk throughout her home with 1-2/10 pain allowing for increased tolerance to daily activities. Goal Progress: Goal Met Goal 3:: LTG: Pt. to be able to ambulate throughout grocery stores with good tolerance allowing for increased community mobility. Goal Progress: Goal Met Goal 4:: LTG: pt. to have increased BLE strength to 5/5 throughout reducing stress to R knee with all functional mobility. Goal Progress: Progressing Goal 5:: STG: pt. to sleep throughout the night with 0-2/10 pain in her R knee allowing for increased quality of life. Goal Progress: Progressing Plan Plan: Pt. to be Dc from PT at this point in time. D/C Information Discharge Comments: Pt. was treated in aquatic setting for her R knee pain. Pt. is I with her exercises at this point in time and will be DC from PT this date. d/c sentence: If there are questions or concerns regarding this patient's physical therapy, please feel free to call me at [phone]. Thank you for the referral of this patient. Sincerely, Bryson Guillermo, DPT Balance/Gait/Functional tests Balance/Special Test Scores Lower Extremity Functional Score: 40
== END 2023-06-02 19:00 | disposition home or self-care (01) ==
LOC: PT 17:30
PROVIDERS: Referring Provider Student in an Organized Health Care Education/Training Program; Visit Provider Student in an Organized Health Care Education/Training Program
DX: M17.11 Unilateral primary osteoarthritis, right knee (principal); M25.561 Pain in right knee; E66.01 Morbid (severe) obesity due to excess calories
CPT/HCPCS: 97113; 97161; 97164

== ENCOUNTER → 2023-09-01 | Outpatient (CLI) | payer MEDICARE, SELFPAY ==
[2019-02-16 09:03] VITALS: BMI 51.2
--- NOTE | 2023-09-01 10:48 | MRI_ITS ---
STUDY: BILATERAL BREAST MR WITHOUT AND WITH CONTRAST REASON FOR EXAM: Female, 72 years old. Genetic high risk. 2 sisters with breast cancer at age 72 and 63. History of right breast cancer status post radiation therapy. Ultrasound-guided biopsy of left breast September 18, 2022 showed fibroadenoma. TECHNIQUE: Multi-sequence multi-echo imaging of both breasts was performed with a dedicated breast coil. T1-weighted and T2-weighted images were performed before the administration of contrast. T1-weighted images were also performed after the intravenous administration of 22 mL of Clariscan contrast. COMPARISON: Left breast ultrasound dated February 26, 2023, left breast biopsy images dated September 18, 2022, prior mammogram dated September 14, 2022 and prior breast MR dated August 29, 2022. FINDINGS: RIGHT BREAST: Predominantly fatty replaced breast with minimal background enhancement. No abnormal enhancing masses or areas of non-mass enhancement in the right breast. LEFT BREAST: Predominantly fatty replaced breast with minimal background enhancement. Ovoid enhancing mass at the 1:00 position corresponding to the findings of the prior ultrasound and ultrasound-guided guided biopsy revealing fibroadenoma. This mass is 2 mm larger than it was on prior study. No enlarged or abnormal lymph nodes. No abnormality in the visualized regions of the chest or liver. MRI/Breast Bilateral W/O and W IMPRESSION: Enhancing mass at the 1:00 position of the left breast corresponding to the ultrasound-guided biopsy revealing fibroadenoma. Follow-up screening mammogram. Yearly is recommended. CATEGORY: BIRADS Category 2: Benign. A letter regarding these results will be sent to the patient by the facility within 30 days. Electronically Signed: Jayden Bo MD at 9:14 EST ,
[2023-09-01 11:17] LABS: CREATININE FINGERSTICK < 0.9 mg/dL (0.55-1.02); EGFR FINGERSTICK > 60.0000 mL/min (>60)
== END | disposition home or self-care (01) ==
LOC: MRI 10:37
PROVIDERS: Referring Provider Internal Medicine Hematology & Oncology; Visit Provider Internal Medicine Hematology & Oncology
DX: D05.11 Intraductal carcinoma in situ of right breast (principal)
CPT/HCPCS: 77049; A9575; A4216; C8908

== ENCOUNTER → 2024-02-17 | Outpatient (CLI) | payer MEDICARE, SELFPAY ==
[2019-02-16 09:03] VITALS: BMI 51.2
[2024-02-17 10:54] LABS: Hematocrit 41.5 % (37-47); Hemoglobin 13.5 g/dL (12.0-15.0); Mean Corp Hgb Conc 32.5 g/dL (32-36); Mean Corpuscular Hgb 30.1 pg (27.0-32.0); Mean Corpuscular Volume 92.4 fL (81-99); Mean Platelet Vol. 11.4 fl (6.2-12.0); Platelet Count 175 K/mm3 (150-450); RBC Distribution Width CV 12.5 % (11.6-14.6); RBC Distribution Width SD 42.3 fl (35.1-43.9); Red Blood Count 4.49 M/mm3 (4.2-5.4); White Blood Count 8.2 K/mm3 (4.4-11.0)
[2024-02-17 10:55] LABS: ALB/GLOB Ratio 0.9 RATIO (0.9-2.4); AST(SGOT) 25 U/L (15-37); Alanine Aminotransfer ALT/SGPT 25 U/L (13-56); Albumin, Serum 3.5 g/dL (3.2-5.0); Alkaline Phosphatase 85 U/L (45-117); Anion Gap 5 (5-15); BUN 17 mg/dL (7-18); BUN/Creat Ratio 24.2 RATIO (10-20); Calcium,Total 9.4 mg/dL (8.5-10.1); Chloride 105 mmol/L (98-107); Cholesterol 168 mg/dL (200); EST Glomerular Filtration Rate 87 mL/min (>60); Est Glom Filt Rate - Afr Amer 105 mL/min (>60); Globulin 3.8 g/dL (2.2-4.2); Glucose 123 mg/dL (74-106); High Density Lipoprotein 43 mg/dL; Potassium 4.1 mmol/L (3.5-5.1); Protein, Total 7.3 g/dL (6.4-8.2); Sodium Level 139 mmol/L (136-145); Triglycerides 142 mg/dL; Very Low Density Lipoprotein 28 mg/dL (5-40)
[2024-02-17 11:03] LABS: Microalbumin,Random Urine 27.6 mg/L (NO RANGE EST.)
== END | disposition home or self-care (01) ==
LOC: LAB 09:13
PROVIDERS: Referring Provider Nurse Practitioner Family; Visit Provider Nurse Practitioner Family
DX: E11.9 Type 2 diabetes mellitus without complications (principal); E78.5 Hyperlipidemia, unspecified
CPT/HCPCS: 36415; 80053; 80061; 82043; 85027

== ENCOUNTER → 2024-03-03 | Outpatient (CLI) | payer MEDICARE, SELFPAY ==
[2019-02-16 09:03] VITALS: BMI 51.2
--- NOTE | 2024-03-03 12:48 | BI_ITS ---
MAMMOGRAPHY - BILATERAL SCREENING REASON FOR EXAM: Female, 73 years old. Routine annual screening examination. PERTINENT HISTORY: Personal history of breast cancer. The patient is status post right lumpectomy. Sister with breast cancer. Aunts with breast cancer. TECHNIQUE: Digital bilateral breast miguel (3D mammographic acquisition) in the CC and MLO projections. 2-D mediolateral oblique (MLO) and craniocaudad (CC) views of both breasts were obtained. CAD: Full Field Digital Mammography with Computer Added Detection was performed. COMPARISON: Comparison is made with prior study dated February 26, 2023. FINDINGS: Breast Composition: There are scattered areas of fibroglandular density. There are no dominant masses or suspicious calcifications. A tissue clip marker is once again seen in the deep upper medial aspect of the right breast. Postoperative scarring is seen at that site. Stable small fat-containing bilateral axillary lymph nodes. No other significant abnormalities are identified. There has been no significant change since the prior study. BI/SCRN MAMM (CAD)W/MIGUEL BILAT IMPRESSION: Stable bilateral screening mammogram. Yearly follow-up mammogram recommended. (A) ASSESSMENT CATEGORY: BIRADS Category 2: Benign. A letter regarding these results will be sent to the patient by the facility within 30 days. Approximately 10% of breast cancers are not detected by mammography. A normal mammogram should not delay biopsy of a clinically suspicious abnormality. [id number] Electronically Signed: Lefty Espinoza MD at 14:05 EDT ,
== END | disposition home or self-care (01) ==
LOC: OPBI 12:48
PROVIDERS: Referring Provider Internal Medicine Hematology & Oncology; Visit Provider Internal Medicine Hematology & Oncology
DX: Z12.31 Encounter for screening mammogram for malignant neoplasm of breast (principal); Z80.3 Family history of malignant neoplasm of breast
CPT/HCPCS: 77063; 77067

== ENCOUNTER 2024-07-20 11:39 | Outpatient (CLI) | payer MEDICARE, SELFPAY ==
[2019-02-16 09:03] VITALS: BMI 51.2
--- NOTE | 2024-07-02 13:15 | RAD_ITS ---
STUDY: X-RAY - ESOPHAGUS (BARIUM SWALLOW) WITH FLUOROSCOPY REASON FOR EXAM: Female, 73 years old. DYSPHAGIA TECHNIQUE: 90 fluoroscopic view(s) of the esophagus were obtained following swallowing of barium. FLUOROSCOPY TIME (if supplied): (45 seconds) minutes/seconds. 9.5 mGy. COMPARISON: None. FINDINGS: There is no demonstrated esophageal foreign body. There is no demonstrated stricture or mucosal abnormality. Normal gastroesophageal junction, without a demonstrated hiatal hernia. The patient ingested a 12 mm tablet of barium without any difficulty. There is atherosclerotic calcification of the aortic arch with tortuosity of the descending aorta. Normal visualized pulmonary parenchyma. There are diffuse degenerative changes of the visualized thoracic spine. A filter is seen in the inferior vena cava. RAD/Esophagus Dual Contrast IMPRESSION: Normal plain film x-ray examination (barium swallow) of the esophagus. Electronically Signed: Lefty Espinoza MD at 13:47 EDT ,
== END 2024-07-20 11:52 | disposition home health service (06) ==
PROVIDERS: Referring Provider Nurse Practitioner Family; Visit Provider Nurse Practitioner Family
DX: R13.10 Dysphagia, unspecified (principal)
CPT/HCPCS: 74221

== ENCOUNTER → 2024-08-03 | Outpatient (CLI) | payer MEDICARE, SELFPAY ==
[2019-02-16 09:03] VITALS: BMI 51.2
[2024-08-03 12:56] LABS: Absolute Neutrophil Count 3.7 X10^3/uL (2.0-7.7); Basophil# 0.04 X10^3/uL; Basophil% 0.6 % (0-1); Eosinophil# 0.19 X10^3/uL; Eosinophils% 2.8 % (0-5); Hematocrit 42.9 % (37-47); Hemoglobin 13.8 g/dL (12.0-15.0); Lymphocyte % 33.9 % (19-41); Mean Corp Hgb Conc 32.2 g/dL (32-36); Mean Corpuscular Hgb 29.7 pg (27.0-32.0); Mean Corpuscular Volume 92.3 fL (81-99); Mean Platelet Vol. 11.3 fl (6.2-12.0); Monocyte# 0.52 X10^3/uL; Monocyte% 7.7 % (0-10); NRBC Flagged by Analyzer 0 % (0-5); Neutrophil # 3.72 X10^3/uL (2.7-7.7); Neutrophil % 54.7 % (47-70); Platelet Count 174 K/mm3 (150-450); RBC Distribution Width CV 12.5 % (11.6-14.6); RBC Distribution Width SD 42.3 fl (35.1-43.9); Red Blood Count 4.65 M/mm3 (4.2-5.4); White Blood Count 6.8 K/mm3 (4.4-11.0)
[2024-08-03 13:41] LABS: ALB/GLOB Ratio 1.1 RATIO (0.9-2.4); AST(SGOT) 24 U/L (15-37); Alanine Aminotransfer ALT/SGPT 24 U/L (13-56); Albumin, Serum 3.8 g/dL (3.2-5.0); Alkaline Phosphatase 90 U/L (45-117); Anion Gap 9 (5-15); BUN 18 mg/dL (7-18); BUN/Creat Ratio 24.7 RATIO (10-20); Calcium,Total 9.5 mg/dL (8.5-10.1); Chloride 104 mmol/L (98-107); Creatinine, Serum 0.73 mg/dL (0.55-1.02); EST Glomerular Filtration Rate 83 mL/min (>60); Est Glom Filt Rate - Afr Amer 100 mL/min (>60); Globulin 3.6 g/dL (2.2-4.2); Glucose 103 mg/dL (74-106); Potassium 3.8 mmol/L (3.5-5.1); Protein, Total 7.4 g/dL (6.4-8.2); Sodium Level 139 mmol/L (136-145)
[2024-08-03 13:47] LABS: Microalbumin,Random Urine 5.4 mg/L (NO RANGE EST.)
[2024-08-04 11:09] LABS: ANTINUCLEAR ANTIBODIES DIRECT Negative (Negative)
== END | disposition home or self-care (01) ==
LOC: VSLAB 09:44
PROVIDERS: PCP Nurse Practitioner Family; Visit Provider Nurse Practitioner Family
DX: E11.9 Type 2 diabetes mellitus without complications (principal); I10 Essential (primary) hypertension; R13.10 Dysphagia, unspecified
CPT/HCPCS: 36415; 80053; 82043; 84443; 85025; 86038

== ENCOUNTER → 2024-09-01 | Outpatient (CLI) | payer MEDICARE, SELFPAY ==
[2019-02-16 09:03] VITALS: BMI 51.2
== END | disposition home or self-care (01) ==
PROVIDERS: PCP Nurse Practitioner Family; Referring Provider Internal Medicine Hematology & Oncology; Visit Provider Internal Medicine Hematology & Oncology
DX: D05.11 Intraductal carcinoma in situ of right breast (principal); Z85.3 Personal history of malignant neoplasm of breast
CPT/HCPCS: 77049; A9575; A4216; C8908

== ENCOUNTER 2024-09-21 06:50 | Day surgery (SDC) | payer MEDICARE, SELFPAY ==
[2019-02-16 09:03] VITALS: BMI 51.2
[2024-09-21] VITALS (7 sets, daily range): BP systolic 120–145; BP diastolic 60–71; PULSE 75–95; RESP 16–18; TEMP 36.3–36.6; O2SAT 97–99; BMI 42.5
--- NOTE | 2024-09-21 07:24 | EKG12_ITS ---
Test Reason : PREOP Blood Pressure : */* mmHG Vent. Rate : 72 BPM Atrial Rate : * BPM P-R Int : * ms QRS Dur : 98 ms QT Int : 410 ms P-R-T Axes : * 50 -20 degrees QTcB Int : 448 ms Atrial fibrillation Nonspecific ST abnormality Abnormal ECG When compared with ECG of 22-Aug-2017 15:47, Atrial fibrillation has replaced Sinus rhythm Non-specific change in ST segment in Inferior leads Confirmed by Elijah Gold ([id number]), editor dictionary LISSET PALMA ([id number]) on 09/22/2024 2:16:14 PM Referred By: Lucita Ferreira Confirmed By: Elijah Gold
--- NOTE | 2024-09-21 07:26 | PRE.ANES_ITS ---
ASA Classification* ASA Classification ASA Classification: 3 Assessment & Plan Anesthesia* Anesthesia Assessment Anesthesia Assessment: Discussed sedation and/or anesthesia options, risks, benefits, and alternatives with patient/parents/legal guardian/POA. Questions invited. The patient/parents/legal guardian/POA seems to understand and agrees to proceed with anesthesia plan. Reviewed the physical assessment, medical history, allergy history and patient home medications list prior to surgery/procedure/anesthetic and documented any changes. Performed airway and anesthesia risk assessments. Anesthesia Type Anesthesia Type: MAC (check ekg to to irr pulse) Anesthesia Focused Assessment* Temperature: 98 F Pulse Rate: 77 Blood Pressure: 145/71 Respiratory Rate: 16 Pulse Ox: 99 Airway Assessment Mouth opens: >3 cm Mallampati Score: II Focused Labs Anesthesia Preop lab: CBC WBC 6.8 K/mm3 (4.4-11.0) 08/03/24 09:45 RBC 4.65 M/mm3 (4.2-5.4) 08/03/24 09:45 Hgb 13.8 g/dL (12.0-15.0) 08/03/24 09:45 Hct 42.9 % (37-47) 08/03/24 09:45 Plt Count 174 K/mm3 (150-450) 08/03/24 09:45 CHEMISTRY Potassium 3.8 mmol/L (3.5-5.1) 08/03/24 09:45 Sodium 139 mmol/L (136-145) 08/03/24 09:45 Magnesium 1.8 mg/dL (1.6-2.6) 10/06/21 07:05 BUN 18 mg/dL (7-18) 08/03/24 09:45 Creatinine 0.73 mg/dL (0.55-1.02) 08/03/24 09:45 Glucose 103 mg/dL (74-106) 08/03/24 09:45 POC Glucose 89 mg/dL (70-110) 12/13/19 07:54 TSH 1.650 uIU/mL (0.358-3.740) 08/03/24 09:45 COAG Pre-Assessment Diagnosis/Proposed Procedure Planned Operative Procedure(s): EGD, CSCOPE Anesthesia History 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 When Was Last Pacemaker Check QUESTION #4 FULL TEXT: You/Your Family Experience fever (hyperthermia) with Anesthesia Last Oral Intake Last Oral intake: Last Oral Intake NPO since Meds taken in AM with sips of water? 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 Female Yes 09/17/24 15:49 HX of Motion Sickness No 09/17/24 15:49 HX of N/V After Surgery No 09/17/24 15:49 Non-Smoker Yes 09/17/24 15:49 Duration of Surgery greater No 09/17/24 15:49 than 60 minutes Number of Risk Factors 2 09/17/24 15:49 PONV Score Moderate Risk 09/17/24 15:49 Height & Weight Height & Weight: Anesthesia: Height & Weight Height 4 ft 11 in 09/21/24 07:10 Weight: 95.5 kg 09/21/24 07:10 Body Mass Index (BMI) 42.5 09/21/24 07:10 Respiratory Assessment Respiratory Assessment - 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 Has anyone observed you stop breathing during sleep? STOP Results Positive 09/17/24 15:49 QUESTION #5 FULL TEXT : Do you snore loudly (louder than talking or can be heard through closed doors)? 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 Specify any problems Hx of Preganancy in last 3 N/A 09/17/24 15:49 Months Nurse Filling Out Transfusion NBUCHER 09/17/24 15:49 & Questions: Date: 09/17/24 09/17/24 15:49 Time: 15:51 09/17/24 15:49 Patient unable to answer at this time (ie. 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 Hx Now Gestational Age (in weeks): EDC: Hx Hx Para Hx Section SAB PFSH Medical History Wears glasses Cancer Diabetes Arthritis High cholesterol Non-smoker CPAP (continuous positive airway pressure) dependence Sleep apnea Shortness of breath on exertion History of edema History of stress test Cardiology follow-up encounter History of echocardiogram Preoperative cardiovascular examination Skin cancer (melanoma) ER+ (estrogen receptor positive status) 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 cancer Hypertension Osteopenia due to cancer therapy Bradycardia KRISTY (obstructive sleep apnea) DCIS (ductal carcinoma in situ) Breast cancer, right Nonrheumatic mitral (valve) insufficiency Obstructive sleep apnea Type 2 diabetes mellitus Osteoarthritis Hyperlipidemia Asthma Obesity Essential hypertension Home Medications ?Medication ?Instructions ?Recorded ?Last Taken ?Type aspirin 81 mg tablet,delayed 81 mg PO DAILY@0800 health 06/11/17 09/15/24 History release maintenance montelukast 10 mg tablet 10 mg PO DAILY allergies 06/11/17 08/22/17 08:00 History albuterol sulfate 90 mcg/actuation 2 puff inhalation Q4H PRN PRN Sob 08/23/17 Unknown Rx aerosol inhaler &/Or Wheezing ##1 fluticasone 500 mcg-salmeterol 50 1 puff inhalation BID PRN Sob &/Or 08/23/17 12/31/18 07:00 Rx mcg/dose blistr powdr for Wheezing ##1 inhalation ergocalciferol (vitamin D2) 1,250 50,000 unit PO QWEEK bone health 02/10/20 Unknown History mcg (50,000 unit) capsule ascorbate calcium (vitamin C) 500 1 gm PO DAILY Check with primary 02/14/21 Unknown History mg tablet doctor calcium carbonate (Calcium 600) 600 mg PO DAILY Check with primary 02/14/21 Unknown History doctor fexofenadine 180 mg tablet 180 mg PO DAILY PRN allergy 02/14/21 Unknown History (Rubi Allergy) symptoms pravastatin 40 mg tablet 40 mg PO QHS Check with primary 02/14/21 Unknown Histor y doctor atenolol 50 mg tablet 50 mg PO DAILY Check with primary 10/04/21 Unknown History doctor hydrochlorothiazide 25 mg tablet 25 mg PO DAILY 04/22/22 Unknown History lisinopril 40 mg tablet 40 mg PO DAILY 04/22/22 Unknown History omeprazole 20 mg capsule,delayed 20 mg PO DAILY Check with primary 04/22/22 Unknown History release doctor amlodipine 2.5 mg tablet 2.5 mg PO DAILY 01/23/23 Unknown History biotin 1,000 mcg chewable tablet 1,000 mcg PO DAILY 01/23/23 Unknown History propylene glycol (PF) 0.6 % eye 1 drp ophthalmic (eye) TID 01/23/23 Unknown History drops (Systane Complete PF) oxybutynin chloride 10 mg 10 mg PO DAILY 09/04/23 Unknown History tablet,extended release 24 hr meloxicam 15 mg tablet 15 mg PO DAILY 09/16/23 Unknown History metformin 500 mg tablet,extended 500 mg PO DAILY 09/16/23 Unknown History release 24 hr Allergy/AdvReac Type Severity Reaction Status Date / Time adhesive tape (plastic tape) AdvReac Severe Other Verified 09/21/24 07:10 cephalexin AdvReac Severe Rash Verified 09/21/24 07:10 clindamycin AdvReac Severe Rash Verified 09/21/24 07:10 Penicillins AdvReac Severe Rash Verified 09/21/24 07:10 Sulfa (Sulfonamide AdvReac Severe Rash Verified 09/21/24 07:10 Antibiotics) Family History Mother Heart disease Breast cancer PER PATIENT MOTHER DID NOT HAVE BREAST CANCER Aunt Breast cancer Sister Breast cancer Asthma Father Colon cancer Brother Colon cancer Other Cancer Surgical History History of cataract extraction History of right cataract extraction (~02/2023) S/P skin biopsy History of lumpectomy of right breast (01/15/19) History of breast biopsy (12/2018) History of ankle surgery History of tubal ligation Hx of cholecystectomy Social History household members: spouse and children housing: house number of children: 6 Smoking Status: Never smoker second hand exposure: No alcohol intake: never substance use type: does not use caffeine: No emanuel/shinto: Restoration seatbelt use: always do you feel safe at home: Yes Review of Systems (Anesthesia) ROS Narrative System reviewed and no additional complaints, except as documented.
[2024-09-21 07:51] LABS: Bedside Glucose 116 mg/dL (74-106)
--- NOTE | 2024-09-21 07:55 | HP.PCM_ITS ---
History and Physical Date of Admission: 09/21/24 Intake Vital Signs 03/04/2413:19 08/11/2409:18 Height 4 ft 11 in 4 ft 11 in Weight: 228 lb 8 oz 223 lb BMI 46.1 45.0 BP 156/71 H 133/78 H Blood Pressure Location Rt brachial Position Sitting Sitting Respiration 18 18 Pulse 46 L 68 Pulse Source Monitor Temp 97.8 F 97.2 F L Temp Source Temporal Pulse Oximetry (%) 98 99 Oxygen Delivery Method room air room air Intake Visit Reasons: COLONOSCOPY, DSYPHAGIA Chief Complaint: colonoscopy/dysphagia Allergies adhesive tape (plastic tape) Adverse Reaction (Severe, Verified 08/11/24 09:20) Othercephalexin Adverse Reaction (Severe, Verified 08/11/24 09:20) Rashclindamycin Adverse Reaction (Severe, Verified 08/11/24 09:20) RashPenicillins Adverse Reaction (Severe, Verified 08/11/24 09:20) RashSulfa (Sulfonamide Antibiotics) Adverse Reaction (Severe, Verified 08/11/24 09:20) Rash Medications ?Medication ?Instructions ?Recorded ?Confirmed ?Type aspirin 81 mg tablet,delayed 81 mg PO DAILY@0800 health 06/11/17 08/11/24 History release maintenance montelukast 10 mg tablet 10 mg PO DAILY allergies 06/11/17 08/11/24 History albuterol sulfate 90 mcg/actuation 2 puff inhalation Q4H PRN PRN Sob 08/23/17 08/11/24 Rx aerosol inhaler &/Or Wheezing ##1 fluticasone 500 mcg-salmeterol 50 1 puff inhalation BID PRN Sob &/Or 08/23/17 08/11/24 Rx mcg/dose blistr powdr for Wheezing ##1 inhalation ergocalciferol (vitamin D2) 1,250 50,000 unit PO QWEEK bone health 02/10/20 08/11/24 History mcg (50,000 unit) capsule ascorbate calcium (vitamin C) 500 1 gm PO DAILY Check with primary 02/14/21 08/11/24 History mg tablet doctor calcium carbonate (Calcium 600) 600 mg PO DAILY Check with primary 02/14/21 08/11/24 History doctor fexofenadine 180 mg tablet 180 mg PO DAILY Check with primary 02/14/21 08/11/24 History (Rubi Allergy) doctor pravastatin 40 mg tablet 40 mg PO QHS Check with primary 02/14/21 08/11/24 History doctor atenolol 50 mg tablet 50 mg PO DAILY Check with primary 10/04/21 08/11/24 History doctor hydrochlorothiazide 25 mg tablet 25 mg PO DAILY 04/22/22 08/11/24 History lisinopril 40 mg tablet 40 mg PO DAILY 04/22/22 08/11/24 History omeprazole 20 mg capsule,delayed 20 mg PO DAILY Check with primary 04/22/22 08/11/24 History release doctor amlodipine 2.5 mg tablet 2.5 mg PO DAILY 01/23/23 08/11/24 History biotin 1,000 mcg chewable tablet 1,000 mcg PO DAILY 01/23/23 08/11/24 History fluorometholone 0.1 % eye 1 drp ophthalmic (eye) TID 01/23/23 08/11/24 History drops,suspension propylene glycol (PF) 0.6 % eye 1 drp ophthalmic (eye) TID 01/23/23 08/11/24 History drops (Systane Complete PF) oxybutynin chloride 10 mg 10 mg PO DAILY 09/04/23 08/11/24 History tablet,extended release 24 hr meloxicam 15 mg tablet 15 mg PO DAILY 09/16/23 08/11/24 History metformin 500 mg tablet,extended 500 mg PO DAILY 09/16/23 08/11/24 History release 24 hr Have you fallen in the past year?: No PFSH Medical History Asthma Bradycardia Breast cancer, right DCIS (ductal carcinoma in situ) ER+ (estrogen receptor positive status) Essential hypertension 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 cancer Hyperlipidemia Hypertension Nonrheumatic mitral (valve) insufficiency Obesity Obstructive sleep apnea KRISTY (obstructive sleep apnea) Osteoarthritis Osteopenia due to cancer therapy Preoperative cardiovascular examination Skin cancer (melanoma) Type 2 diabetes mellitus Surgical History History of cataract extraction History of right cataract extraction (~02/2023) S/P skin biopsy History of lumpectomy of right breast (01/15/19) History of breast biopsy (12/2018) History of ankle surgery History of tubal ligation Hx of cholecystectomy Family History Mother Heart disease Breast cancer PER PATIENT MOTHER DID NOT HAVE BREAST CANCER Aunt Breast cancerSister Breast cancer AsthmaFather Colon cancerBrother Colon cancerOther Cancer Social History household members: spouse and children housing: house number of children: 6 Smoking Status: Never smoker second hand exposure: No alcohol intake: never substance use type: does not use caffeine: No emanuel/zoroastrianism: Scientology seatbelt use: always do you feel safe at home: Yes HPI HPI HPI: The patient is a 73-year-old female here for upper and lower endoscopy. She reports she has been having dysphagia since last November when she tried to go onto Ozempic and started having problems with dysphagia. She has difficulty swallowing meats and anything dry. She feels like she has a very dry mouth. She is also due for colonoscopy. She is high risk as her brother and father had colon cancer. She denies abdominal pain or blood in the stool. Her last colonoscopy was 5 years ago. It was normal. ROS General General: Yes weight change and breast cancer; No appetite, fatigue, colon cancer or weakness HEENT HEENT: Yes difficulty swallowing and eye surgery; No eye injury, swollen glands or hoarseness Endo Endocrine: Yes diabetes mellitus; No thyroid disease, thyroid cancer, Hair loss, heat intolerance or cold intolerance Skin Skin: No rash or changing moles Breast Breast: No left breast lump, right breast lump, nipple discharge, breast pain, abnormal mammogram, abnormal US or breast enlargement Musc Musculoskeletal: Yes arthritis and rheumatoid arthritis; No back problems, gout or joint pain Cardio Cardiovascular: Yes high blood pressure; No murmur, pacemaker, heart disease, atrial fibrillation, heart attack, heart stent, palpitations, shortness of breat with exertion or chest pain Psych Psychiatric: No depression, anxiety or hearing voices Resp Respiratory: Yes shortness of breath, Yes sleep apnea, Yes cough, No COPD, Yes asthma, No emphysema and No wheezing Gastro Gastrointestinal: Yes abdominal pain, No nausea or vomiting, No diarrhea, No constipation, No blood in stool, Yes acid reflux, No hemorrhoids, No ulcers, No gallbladder problem and No black,tarry stools Damon Hematologic: No blood thinners, No blood disorders, No bleeding, No anemia and No blood clots Neuro Neurologic: No system reviewed and no additional complaints, except as documented, No as per HPI, No abnormal gait, No abnormal hearing, No abnormal movements, No abnormal speech, No behavioral changes, No burning sensations, No confusion, No convulsions, No disequilibrium, No dizziness, No localized weakness, No frequent falls, No headache(s), No lack of coordination, No loss of vision, No memory loss, No numbness, No other visual disturbances, No radicular pain, No restless legs, No sensory deficit, No syncope, No tingling, No tremor(s), No weakness and No other Exam Const General: cooperative Orientation: alert and oriented x3 HENMT Head: normal to inspection Neck Neck: normal visual inspection and full ROM Chest Chest palpation & inspection: normal inspection of the chest Resp Effort & Inspection: normal respiratory effort Auscultation: clear to auscultation bilaterally Cardio Rate: regular rate Rhythm: regular rhythm GI Inspection: non-distended Palpation: soft and nontender Skin General: no rashes or lesions noted Neuro General: patient alert and patient oriented x3 Extrem General: full ROM Psych Appearance: grossly normal Mental Status: mental status grossly normal Assessment and Plan Assessment and Plan (1) Encounter for screening colonoscopy: Status: Acute (2) Difficulty swallowing: Status: Acute Orders: Orders EGD Today Colonoscopy Today Plan I explained endoscopy in detail to the patient. I explained the risks including but not limited to stroke or heart attack with anesthesia, perforation of the GI tract, bleeding, infection. I explained that any of these could necessitate further emergency surgery. The patient understands and all questions were answered sufficiently. The patient wishes to proceed with procedure. Eder Castano MD Pager: [facility] [address] [place] [address], [address] [place] [address] Office: I have examined the patient and the H&P has been reviewed. There are no clinical changes since date of exam.
--- NOTE | 2024-09-21 09:09 | OP.EGD_ITS ---
Patient Name: Winifred Negrete Procedure Date: 09/21/2024 8:38 AM Date of : 1950 Age: 73 Procedure: Upper GI endoscopy Indications: Dysphagia Providers: Eder Castano MD Referring MD: Lucita Ferreira [facility], Salesperson Men'S Hats-c Medicines: Propofol per Anesthesia Patient Profile: This is a 73 year old female. Refer to note in patient chart for documentation of history and physical. Complications: No immediate complications. Estimated blood loss: Minimal. Procedure: Pre-Anesthesia Assessment: - Prior to the procedure, a History and Physical was performed, and patient medications and allergies were reviewed. The patient's tolerance of previous anesthesia was also reviewed. The risks and benefits of the procedure and the sedation options and risks were discussed with the patient. All questions were answered, and informed consent was obtained. Prior Anticoagulants: The patient has taken no anticoagulant or antiplatelet agents. After reviewing the risks and benefits, the patient was deemed in satisfactory condition to undergo the procedure. After obtaining informed consent, the endoscope was passed under direct vision. Throughout the procedure, the patient's blood pressure, pulse, and oxygen saturations were monitored continuously. The gastroscope was introduced through the mouth, and advanced to the second part of duodenum. The upper GI endoscopy was accomplished without difficulty. The patient tolerated the procedure well. Scope In: 8:47:10 AM Scope Out: 8:49:11 AM Total Procedure Duration Time 0 hours 2 minutes 1 second Findings: The esophagus was normal. The stomach was normal. The examined duodenum was normal. Impression: - Normal esophagus. - Normal stomach. - Normal examined duodenum. - No specimens collected. Recommendation: - Discharge patient to home. - Resume previous diet. - Continue present medications. Procedure Code(s): --- Professional --- 03883, Esophagogastroduodenoscopy, flexible, transoral; diagnostic, including collection of specimen(s) by brushing or washing, when performed (separate procedure) Diagnosis Code(s): --- Professional --- R13.10, Dysphagia, unspecified CPT copyright 2021 [employer]. All rights reserved. The codes documented in this report are preliminary and upon charter bus driver review may be revised to meet current compliance requirements. Eder Castano MD 09/21/2024 9:09:41 AM This report has been signed electronically. Number of Addenda: 0 Note Initiated On: 09/21/2024 8:38 AM
--- NOTE | 2024-09-21 09:10 | OP.CCLET_ITS ---
09/21/2024 Lucita Ferreira [facility], Composition Weatherboard Installer-c Re : Upper GI endoscopy procedure for Winifred Ferreira This procedure was performed on Saturday, September 21, 2024. My impressions and recommendations are as follows: Impressions : - Normal esophagus. - Normal stomach. - Normal examined duodenum. - No specimens collected. Recommendations : - Discharge patient to home. - Resume previous diet. - Continue present medications. My findings are described in the full procedure note, which is enclosed. If I can be of further assistance, please feel free to contact me at Doctor phone number(s): , Work: . Sincerely, Eder Castano MD 09/21/2024 9:09:41 AM This report has been signed electronically.
--- NOTE | 2024-09-21 09:11 | OP.COLON_ITS ---
Patient Name: Winifred Negrete Procedure Date: 09/21/2024 8:49 AM Date of : 1950 Age: 73 Procedure: Colonoscopy Indications: Family history of colon cancer in multiple first-degree relatives Providers: Eder Castano MD Referring MD: Lucita Ferreira [facility], Accounts Receivable Collector-c Medicines: Propofol per Anesthesia Patient Profile: This is a 73 year old female. Refer to note in patient chart for documentation of history and physical. Last Colonoscopy: 5 years ago. Complications: No immediate complications. Procedure: Pre-Anesthesia Assessment: - Prior to the procedure, a History and Physical was performed, and patient medications and allergies were reviewed. The patient's tolerance of previous anesthesia was also reviewed. The risks and benefits of the procedure and the sedation options and risks were discussed with the patient. All questions were answered, and informed consent was obtained. Prior Anticoagulants: The patient has taken no anticoagulant or antiplatelet agents. After reviewing the risks and benefits, the patient was deemed in satisfactory condition to undergo the procedure. After I obtained informed consent, the scope was passed under direct vision. Throughout the procedure, the patient's blood pressure, pulse, and oxygen saturations were monitored continuously. The Colonoscope was introduced through the anus and advanced to the cecum, identified by appendiceal orifice and ileocecal valve. The colonoscopy was performed without difficulty. The patient tolerated the procedure well. The quality of the bowel preparation was good. The ileocecal valve, appendiceal orifice, and rectum were photographed. Scope In: 8:51:53 AM Scope Withdrawal Time 0 hours 6 minutes 53 seconds Scope Out: 9:07:46 AM Total Procedure Duration Time 0 hours 15 minutes 53 seconds Findings: The entire examined colon appeared normal on direct and retroflexion views. Impression: - The entire examined colon is normal on direct and retroflexion views. - No specimens collected. Recommendation: - Discharge patient to home. - Resume previous diet. - Continue present medications. - No repeat colonoscopy due to age. Procedure Code(s): --- Professional --- 39426, Colonoscopy, flexible; diagnostic, including collection of specimen(s) by brushing or washing, when performed (separate procedure) Diagnosis Code(s): --- Professional --- Z80.0, Family history of malignant neoplasm of digestive organs CPT copyright 2021 [employer]. All rights reserved. The codes documented in this report are preliminary and upon sweeper driver review may be revised to meet current compliance requirements. Eder Castano MD 09/21/2024 9:11:25 AM This report has been signed electronically. Number of Addenda: 0 Note Initiated On: 09/21/2024 8:49 AM
--- NOTE | 2024-09-21 09:11 | OP.CCLET_ITS ---
09/21/2024 Lucita Ferreira [facility], Vice President Of Contracts-c Re : Colonoscopy procedure for Winifred Ferreira This procedure was performed on Saturday, September 21, 2024. My impressions and recommendations are as follows: Impressions : - The entire examined colon is normal on direct and retroflexion views. - No specimens collected. Recommendations : - Discharge patient to home. - Resume previous diet. - Continue present medications. - No repeat colonoscopy due to age. My findings are described in the full procedure note, which is enclosed. If I can be of further assistance, please feel free to contact me at Doctor phone number(s): , Work: . Sincerely, Eder Castano MD 09/21/2024 9:11:25 AM This report has been signed electronically.
--- NOTE | 2024-09-21 09:11 | PCM.PN.BLA ---
Progress Note The patient was found to have new onset A-fib in preop. We discussed this with Dr. Gold and he recommended that we could proceed as long as we can start her on Eliquis today. The colonoscopy and EGD were normal. There was no sign of reason for her dysphagia there were no ulcerations and her colon had no polyps. I will start her on Eliquis and she will follow-up with her PCP and Dr. Gold to evaluate the A-fib.
--- NOTE | 2024-09-21 09:17 | PCM.POST.ANE ---
Anesthesia: Postop Eval I Current Vital Signs Temperature: 97.4 F Pulse Rate: 80 Blood Pressure: 120/64 Respiratory Rate: 16 Pulse Ox: 98 Oxygen Delivery Method: Room Air Assessment Airway patent: Yes Spontaneous unlabored respirations: Yes Mental status: Asleep nausea: No Vomiting: No Anesthesia Complication: No Fluid Hydration Crystalloid volume administer (ml): 60 Total IV fluid infused: 60 Progress Note Anesthesia document: Postop Eval 1 completed: Yes
--- NOTE | 2024-09-21 09:55 | PCM.POSTANE2 ---
Anesthesia Postop Eval I Sum Postop Eval Completion status Anesthesia document: Postop Eval 1 completed: Yes Anesthesia Postop Eval I Summary Anesthesia Postop Eval I Summary: Anesthesia Postop Eval I: Assessment Summary Airway patent Yes 09/21/24 09:17 [email or web address] Spontaneous unlabored Yes 09/21/24 09:17 [email or web address] respirations Mental status Asleep 09/21/24 09:17 [email or web address] nausea No 09/21/24 09:17 [email or web address] Vomiting No 09/21/24 09:17 [email or web address] Anesthesia Postop Eval I: Fluid Summary Crystalloid volume administer 60 09/21/24 09:17 [email or web address] (ml) Colloids volume administered ( ml) Blood Product volume administered (ml) Total IV fluid infused 60 09/21/24 09:17 [email or web address] Anesthesia Postop Eval I: Summary Notes Anesthesia Complication No 09/21/24 09:17 [email or web address] Anesthesia Complication Comment: Post-operative progress note Anesthesia: Postop Eval II Evaluation Mental status: Awake Pain Level: 0 nausea: No Vomiting: No
== END 2024-09-21 10:00 | disposition home or self-care (01) ==
LOC: EN 06:51 → AC 06:53
PROVIDERS: PCP Nurse Practitioner Family; Referring Provider Nurse Practitioner Family; Visit Provider Surgery
PROC: 0DJD8ZZ Inspection of Lower Intestinal Tract, Via Natural or Artificial Opening Endoscopic (ICD-10-PCS; CPT 45378; principal; 2024-09-21 07:55)
DX: Z12.11 Encounter for screening for malignant neoplasm of colon (principal); E11.9 Type 2 diabetes mellitus without complications; R13.10 Dysphagia, unspecified; I10 Essential (primary) hypertension; K21.9 Gastro-esophageal reflux disease without esophagitis; Z79.82 Long term (current) use of aspirin; Z79.84 Long term (current) use of oral hypoglycemic drugs; Z79.899 Other long term (current) drug therapy; Z80.0 Family history of malignant neoplasm of digestive organs
CPT/HCPCS: G0105; 43235; 82962; 93005; A4216; J2405

== ENCOUNTER → 2024-11-03 | Outpatient (CLI) | payer MEDICARE, SELFPAY ==
[2019-02-16 09:03] VITALS: BMI 51.2
[2024-11-03 11:17] LABS: Absolute Lymphocyte Count 2.76 X10^3/uL (0.83-4.51); Absolute Neutrophil Count 3.9 X10^3/uL (2.0-7.7); Basophil# 0.04 X10^3/uL; Basophil% 0.5 % (0-1); Eosinophil# 0.33 X10^3/uL; Eosinophils% 4.3 % (0-5); Hematocrit 40.9 % (37-47); Hemoglobin 13.9 g/dL (12.0-15.0); Lymphocyte # 2.76 X10^3/ul (0.83-4.51); Lymphocyte % 36.3 % (19-41); Mean Corpuscular Volume 88.1 fL (81-99); Mean Platelet Vol. 10.8 fl (6.2-12.0); Monocyte# 0.57 X10^3/uL; Monocyte% 7.5 % (0-10); NRBC Flagged by Analyzer 0 % (0-5); Neutrophil # 3.88 X10^3/uL (2.7-7.7); Platelet Count 161 K/mm3 (150-450); RBC Distribution Width CV 13.4 % (11.6-14.6); RBC Distribution Width SD 43.2 fl (35.1-43.9); Red Blood Count 4.64 M/mm3 (4.2-5.4); White Blood Count 7.6 K/mm3 (4.4-11.0)
[2024-11-03 11:58] LABS: ALB/GLOB Ratio 0.9 RATIO (0.9-2.4); AST(SGOT) 21 U/L (15-37); Alanine Aminotransfer ALT/SGPT 18 U/L (13-56); Albumin, Serum 3.5 g/dL (3.2-5.0); Alkaline Phosphatase 87 U/L (45-117); Anion Gap 8 (5-15); BUN 18 mg/dL (7-18); BUN/Creat Ratio 25.8 RATIO (10-20); Calcium,Total 9.3 mg/dL (8.5-10.1); Chloride 105 mmol/L (98-107); Cholesterol 150 mg/dL (200); EST Glomerular Filtration Rate 87 mL/min (>60); Est Glom Filt Rate - Afr Amer 105 mL/min (>60); Globulin 3.8 g/dL (2.2-4.2); Glucose 105 mg/dL (74-106); High Density Lipoprotein 44 mg/dL; Potassium 3.8 mmol/L (3.5-5.1); Protein, Total 7.3 g/dL (6.4-8.2); Sodium Level 139 mmol/L (136-145); Triglycerides 118 mg/dL; Very Low Density Lipoprotein 24 mg/dL (5-40)
[2024-11-04 10:08] LABS: Anti-Centromere B Ab <0.2 AI (0.0-0.9); Anti-Chromatin <0.2 AI (0.0-0.9); Anti-Jo <0.2 AI (0.0-0.9); Anti-Scleroderma-70 AB <0.2 AI (0.0-0.9); Anti-dsDNA Ab 1 IU/mL (0-9); RNP Ab <0.2 AI (0.0-0.9); SJOGREN'S Anti-SS-A test < 0.2 AI (0.0-0.9); SJOGREN'S Anti-SS-B test < 0.2 AI (0.0-0.9); Smith Ab <0.2 AI (0.0-0.9)
== END | disposition home or self-care (01) ==
PROVIDERS: PCP Nurse Practitioner Family; Referring Provider Nurse Practitioner Family; Visit Provider Nurse Practitioner Family
DX: R13.10 Dysphagia, unspecified (principal); E78.5 Hyperlipidemia, unspecified
CPT/HCPCS: 36415; 80053; 80061; 85025; 86225; 86235

== ENCOUNTER → 2024-12-02 | Outpatient (CLI) | payer MEDICARE, SELFPAY ==
[2019-02-16 09:03] VITALS: BMI 51.2
--- NOTE | 2024-12-02 11:50 | NM_ITS ---
PROCEDURE: GASTRIC EMPTYING STUDY REASON FOR EXAM: Early satiety. TECHNIQUE: Following the ingestion of the radiopharmaceutical, anterior and posterior gamma camera images were acquired at 60 second intervals for a total of 60 minutes. Radiopharmaceutical: 1.0 mCi of Technetium sulfur colloid in oatmeal. COMPARISON: None. FINDINGS: Half-life: 12 minutes Gastroesophageal reflux: None. NM/Gastric Emptying Study IMPRESSION: Normal gastric emptying study. No evidence of gastroesophageal reflux. Reading Location: [facility]
== END | disposition home or self-care (01) ==
LOC: NM 11:49
PROVIDERS: PCP Nurse Practitioner Family; Referring Provider Student in an Organized Health Care Education/Training Program; Visit Provider Student in an Organized Health Care Education/Training Program
DX: R68.81 Early satiety (principal); R13.10 Dysphagia, unspecified
CPT/HCPCS: 78264; A9541

== ENCOUNTER → 2024-12-24 | Outpatient (CLI) | payer MEDICARE, SELFPAY ==
[2019-02-16 09:03] VITALS: BMI 51.2
== END | disposition home or self-care (01) ==
PROVIDERS: PCP Nurse Practitioner Family; Referring Provider Internal Medicine Cardiovascular Disease; Visit Provider Internal Medicine Cardiovascular Disease
DX: I48.0 Paroxysmal atrial fibrillation (principal)
CPT/HCPCS: 93225; 93226

== ENCOUNTER → 2025-02-03 | Outpatient (CLI) | payer MEDICARE, SELFPAY ==
[2019-02-16 09:03] VITALS: BMI 51.2
--- NOTE | 2025-02-03 11:22 | RAD_ITS ---
EXAM: XR Chest, 2 Views CLINICAL INDICATION: COUGH X 1 WEEK TECHNIQUE: Frontal and lateral views of the chest. COMPARISON: No relevant prior studies available. FINDINGS: LUNGS AND PLEURAL SPACES: Unremarkable. No consolidation. No pneumothorax. HEART: Unremarkable. No cardiomegaly. MEDIASTINUM: Unremarkable. Normal mediastinal contour. BONES/JOINTS: Unremarkable. No acute fracture. RAD/Chest PA and Lateral IMPRESSION: No acute cardiopulmonary process. Reading Location: [facility]
== END | disposition home or self-care (01) ==
LOC: MTRAD 11:21
PROVIDERS: PCP Nurse Practitioner Family; Referring Provider Physician Assistant Surgical; Visit Provider Physician Assistant Surgical
DX: R05.9 Cough, unspecified (principal)
CPT/HCPCS: 71046

== ENCOUNTER → 2025-02-10 | Outpatient (CLI) | payer MEDICARE, SELFPAY ==
[2019-02-16 09:03] VITALS: BMI 51.2
[2025-02-10 16:42] LABS: Absolute Lymphocyte Count 3.67 X10^3/uL (0.83-4.51); Absolute Neutrophil Count 7.9 X10^3/uL (2.0-7.7); Basophil# 0.04 X10^3/uL; Basophil% 0.3 % (0-1); Eosinophil# 0.07 X10^3/uL; Eosinophils% 0.6 % (0-5); Hematocrit 45.3 % (37-47); Hemoglobin 15.4 g/dL (12.0-15.0); Lymphocyte # 3.67 X10^3/ul (0.83-4.51); Lymphocyte % 29.1 % (19-41); Mean Corpuscular Hgb 30.4 pg (27.0-32.0); Mean Corpuscular Volume 89.3 fL (81-99); Monocyte# 0.77 X10^3/uL; Monocyte% 6.1 % (0-10); NRBC Flagged by Analyzer 0 % (0-5); Neutrophil # 7.91 X10^3/uL (2.7-7.7); Neutrophil % 62.6 % (47-70); Platelet Count 370 K/mm3 (150-450); RBC Distribution Width CV 12.5 % (11.6-14.6); RBC Distribution Width SD 40.7 fl (35.1-43.9); Red Blood Count 5.07 M/mm3 (4.2-5.4); White Blood Count 12.6 K/mm3 (4.4-11.0)
[2025-02-10 17:25] LABS: ALB/GLOB Ratio 1.2 RATIO (0.9-2.4); AST(SGOT) 26 U/L (<=31); Alanine Aminotransfer ALT/SGPT 21 U/L (<=34); Albumin, Serum 3.9 g/dL (3.4-4.8); Alkaline Phosphatase 67 U/L (35-104); Anion Gap 14 (5-15); BUN 28 mg/dL (4-19); BUN/Creat Ratio 26.1 RATIO (10-20); Calcium,Total 9.9 mg/dL (7.6-11.0); Chloride 99 mmol/L (98-108); Creatinine, Serum 1.08 mg/dL (0.70-1.20); EST Glomerular Filtration Rate 54 (>60); Globulin 3.2 g/dL (2.2-4.2); Glucose 104 mg/dL (70-99); Potassium 3.8 mmol/L (3.3-5.1); Pro- Brain NATRIURETIC PEPTIDE 877 pg/mL (<=1800); Protein, Total 7.1 g/dL (5.9-8.4); Sodium Level 137 mmol/L (133-145); Total Bilirubin 1.04 mg/dL (0.00-1.30)
== END | disposition home or self-care (01) ==
LOC: VSLAB 14:47
PROVIDERS: PCP Nurse Practitioner Family
DX: E11.9 Type 2 diabetes mellitus without complications (principal); R06.00 Dyspnea, unspecified
CPT/HCPCS: 36415; 80053; 83880; 85025

== ENCOUNTER → 2025-03-04 | Outpatient (CLI) | payer MEDICARE, SELFPAY ==
[2019-02-16 09:03] VITALS: BMI 51.2
--- NOTE | 2025-03-04 12:00 | BI_ITS ---
EXAM: SCRN MAMM (CAD)W/MIGUEL BILAT 03/04/2025 CLINICAL HISTORY: F, Age 74 y/o , SCREENING TECHNIQUE: Bilateral screening digital breast tomosynthesis with 2D and 3D images. Computer aided detection. COMPARISON: Prior exam(s) dated 03/03/2024, 02/26/2023, 09/05/2022. FINDINGS: TISSUE DENSITY: The breast tissue is composed of scattered area of fibroglandular density. Bilateral Breast Mammographic Findings: There is an irregular mass with associated calcifications in the upper central left breast at middle depth. There is an asymmetry in the lateral left breast at middle depth visualized on the CC view. No significant masses, calcifications or other abnormalities are identified right breast. BI/SCRN MAMM (CAD)W/MIGUEL BILAT IMPRESSION: 1. The irregular mass with associated calcifications in the upper central left breast at middle depth requires further evaluation. Recommend diagnostic ultrasound of the left breast. 2. The asymmetry in the lateral left breast at middle depth visualized on the CC view requires further evaluation. Recommend diagnostic mammogram of the left breast and ultrasound on the day of diagnostic . Right Breast: BIRADS 1 NEGATIVE. Left Breast: BIRADS 0 Incomplete: Need additional imaging evaluation and/or pr ior mammograms for comparison.. OVERALL FINAL ASSESSMENT: BIRADS 0 Incomplete: Need additional imaging evaluati on and/or prior mammograms for comparison.. RECOMMENDATION: Additional projections. A letter with findings and recommendations will be mailed to the patient. Reading Location: [facility]
== END | disposition home or self-care (01) ==
LOC: OPBI 11:21
PROVIDERS: PCP Nurse Practitioner Family; Referring Provider Internal Medicine Hematology & Oncology; Visit Provider Internal Medicine Hematology & Oncology
DX: Z12.31 Encounter for screening mammogram for malignant neoplasm of breast (principal)
CPT/HCPCS: 77063; 77067

== ENCOUNTER → 2025-03-11 | Outpatient (CLI) | payer MEDICARE, SELFPAY ==
[2019-02-16 09:03] VITALS: BMI 51.2
--- NOTE | 2025-03-11 13:04 | BI_ITS ---
EXAM: BREAST LIMITED UNILATERAL; LT BRST UNILAT MIGUEL ADD ON; DIAG MAMM W/CAD, UNILAT N/A; 03/11/2025 CLINICAL HISTORY: 74-year-old female recalled from screening for findings in the left breast. Personal history of right breast cancer status post lumpectomy in 2019 with radiation. Family history of breast cancer in 2 sisters at age 63 and 72, as well as in 2 maternal aunts and a paternal aunt. TECHNIQUE: Left diagnostic digital breast tomosynthesis with 2D and 3D images. Computer aided detection. Also targeted left breast ultrasound was performed. COMPARISON: Prior exam(s) dated 03/03/2024, 09/01/2024, 02/26/2023, 09/05/2022. FINDINGS: MAMMOGRAM: TISSUE DENSITY: The breast tissue is composed of scattered area of fibroglandular density. Follow-up examination performed for the irregular mass with associated calcifications in the upper central left breast at middle depth visualized on examination of 03/03/2024. On the present examination the iliac and a mass with associated fine pleomorphic calcifications in the upper central left breast at middle depth persist. Follow-up examination performed for the asymmetry in the left breast visualized on examination of 03/03/2024. On the present examination, the asymmetry in the lateral left breast at middle depth does not persist. LEFT BREAST ULTRASOUND: There is an irregular hypoechoic mass with internal vascular flow and posterior acoustic shadowing in the left breast at 10-11 o'clock 3 cm from the nipple measuring 0.9 x 0.7 x 0.7 cm. This correlates with the mammographic finding. Also, there are 2 small cyst in the left breast at 1 o'clock 8 cm from the nipple, as well as a small cyst at 11 o'clock 4 cm from the nipple. There is another 0.5 cm cystic mass in the left breast at 12 o'clock 3 cm from the nipple, which was likely previously biopsied however the clip is not well visualized on this examination. There are 2 architecturally normal-appearing left axillary lymph nodes. BI/Lt Brst Unilat Miguel Add On IMPRESSION: 1. Suspicious irregular mass in the left breast at 10-11 o'clock 3 cm from the nipple. Recommend tissue sampling with ultrasound-guided core needle biopsy. Left Breast: BIRADS 5 HIGHLY SUGGESTIVE OF MALIGNANCY. OVERALL FINAL ASSESSMENT: BIRADS 5 HIGHLY SUGGESTIVE OF MALIGNANCY. RECOMMENDATION: Ultrasound-guided core needle biopsy is recommended. A letter with findings and recommendations will be mailed to the patient. Reading Location: [id number]
== END | disposition home or self-care (01) ==
LOC: OPBI 12:51
PROVIDERS: PCP Nurse Practitioner Family; Referring Provider Internal Medicine Hematology & Oncology; Visit Provider Internal Medicine Hematology & Oncology
DX: R92.8 Other abnormal and inconclusive findings on diagnostic imaging of breast (principal); Z85.3 Personal history of malignant neoplasm of breast; Z80.3 Family history of malignant neoplasm of breast
CPT/HCPCS: 76642; 77061; 77065; G0279

== ENCOUNTER → 2025-03-25 | Outpatient (CLI) | payer MEDICARE, SELFPAY ==
[2019-02-16 09:03] VITALS: BMI 51.2
--- NOTE | 2025-03-25 09:46 | US_ITS ---
PROCEDURE: BREAST LIMITED UNILATERAL 03/25/2025 REASON FOR EXAM: LEFT BREAST MASS TECHNIQUE: Targeted left breast ultrasound. COMPARISON: Prior ultrasound and mammogram dated March 11, 2025. FINDINGS: Left breast ultrasound was targeted to the upper-outer quadrant of the left breast.. The patient was initially scheduled for biopsy. No definite abnormality is seen for biopsy at the 10 o'clock position of the breast at 3 cm from the nipple. Patient will be rescheduled for stereotactic biopsy on a future date. US/Breast Limited Unilateral IMPRESSION: Impression: The abnormality was not accurately localized for biopsy. The patie nt will be recalled for stereotactic biopsy. Birads: BI-RADS 0: INCOMPLETE - NEED ADDITIONAL IMAGING EVALUATION. Reading Location: [place] [id number]
== END | disposition home or self-care (01) ==
PROVIDERS: PCP Nurse Practitioner Family; Referring Provider Surgery; Visit Provider Surgery
DX: N63.20 Unspecified lump in the left breast, unspecified quadrant (principal); R92.8 Other abnormal and inconclusive findings on diagnostic imaging of breast
CPT/HCPCS: 76642

== ENCOUNTER → 2025-04-11 | Outpatient (CLI) | payer MEDICARE, SELFPAY ==
[2019-02-16 09:03] VITALS: BMI 51.2
--- NOTE | 2025-04-11 12:50 | BRBX_PTH ---
PATIENT: ALONZO VÁSQUEZ LOC: [facility] U#:[id number] AGE/SX: 74/F ROOM: RE04/11/[address]: Dr. Eder Castano MD : 1950 BED: DIS: 04/11/2025 SPEC #: [id number] RECD: 04/11/25 13:00 STATUS: GARCIA NYA #: [id number] MAXIMINO: 04/11/25 12:[address]: Eder Castano DEPT: SURGICAL PATHOLOGY RECD BY: Wilner Reeves ENTERED: 04/11/25 13:27 SP TYPE: BREAST BX OTHR DR: Lucita Ferreira, [facility], [employer]-C Tissues: A - Left breast, NOS Procedures: Immunohistochemical Stains Surgery Specimen Level IV IHC Stain ADDITIONAL HEADER OPERATION: Left breast stereotactic biopsy PRE-OP DIAGNOSIS: Left breast mass 10-11 o'clock with calcifications TISSUE SUBMITTED: A- Left breast, calcifications in chamber #3 Ischemic Time: 19 minute Fixation Time: 30 hours, 21min MICROSCOPIC DIAGNOSIS A. Left breast, mass, 10-11 o'clock, core biopsy: * Ductal carcinoma in situ (DCIS), intermediate nuclear grade. * Microcalcifications noted, negative for necrosis. * IHC for E-cadherin, Calponin, SMMS, CK5/6 and p40 support the diagnosis. * Estrogen Receptor: positive (100%, strong intensity). * Progesterone receptor: positive (25%, strong intensity). MICROSCOPIC DESCRIPTION Slides are reviewed. All matched controls reacted appropriately. These tests were developed and their performance characteristics determined by [facility]. They may not have been cleared or approved by the U.[place]. Food and Drug Administration. The FDA has determined that such clearance or approval is not necessary.? The above immunohistochemical/dualISH?markers are ordered and reviewed by the Pathologist. GROSS DESCRIPTION A.? Received fresh and subsequently placed in formalin labeled with the patient's name and date of are 5 montes-yellow soft tissue cores within 3 oriented chambers, ranging from 1.4 cm to 2.7 cm in length by an average of by 0.4 cm in diameter.? The specimen is entirely submitted in 2 cassettes as follows: A1: 3 soft tissue cores from chamber #3, confirmed microcalcification on imagingA2: 2 soft tissue cores from chambers #1 and #2 Cold ischemic time: 19 minutesFormalin fixation time: 30 hours, 21 minutes MS 04/11/2025 CPT:81226, [id number], [id number], [id number] ADDENDUM ADDENDUM ADDENDUM ADDENDUM ADDENDUM ADDENDUM 06/02/2025 08:50 ADDENDUM 06/02/2025 08:50 ADDENDUM 06/02/2025 08:50 ADDENDUM 06/02/2025 08:50 ADDENDUM 06/02/2025 08:50 This addendum is to provide the dimensions (span) of the DCIS: The tumor span (ductal carcinoma in situ) is at least 0.5 cm. The findings were reported to Dr Jannet Bustamante via email at 8:50 AM, 06/02/25.
--- NOTE | 2025-04-11 13:07 | OP.PCM_ITS ---
Operative Report (Standard) Operative Information Date of Procedure: 04/11/25 Pre-Operative Diagnosis: Left breast mass Post-Operative Diagnosis: Left breast mass Surgery/Procedure Performed: Stereotactic guided core needle biopsy of the left breast with placement of clip shredding specialist: No Type of Anesthesia: Local Procedure Start Time: 12:35 Procedure Stop Time: 12:45 Select all DRAINS/GRAFTS/IMPLANTS that apply: None Estimated Blood Loss: 2 Specimen collected: Yes Description of specimen(s) removed: Breast specimen Description of surgery: Patient was placed in the stereotactic table and compression views were obtained. The mass was identified. There tactically views were obtained and the mass was localized in the computer. Next the breast was prepped and draped in usual sterile fashion. The skin was injected with local anesthetic and a small johnny was made with a scalpel. The needle was placed into the incision and fired. Several biopsies were completed and then the specimen was examined under fluoroscopy. It did contain the microcalcifications. A clip was then placed. The needle was removed and a Steri-Strip and bandage were placed over the incision. Patient tolerated the procedure well. Surgical Findings: Left breast mass Complications Complications: No
== END | disposition home or self-care (01) ==
PROVIDERS: PCP Nurse Practitioner Family; Referring Provider Surgery; Visit Provider Surgery
DX: R92.8 Other abnormal and inconclusive findings on diagnostic imaging of breast (principal); C50.212 Malignant neoplasm of upper-inner quadrant of left female breast; R92.1 Mammographic calcification found on diagnostic imaging of breast
CPT/HCPCS: 19081; 88305; 88341; 88342; A4648

== ENCOUNTER → 2025-04-27 | Outpatient (CLI) | payer MEDICARE, SELFPAY ==
[2019-02-16 09:03] VITALS: BMI 51.2
--- OUTSIDE RECORDS SUMMARY | 2025-04-27 06:57 | XMS RPT_ITS | CCD ---
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 Larry Sandy Emergency Provider [phone] Keshav Ziegler Admit Provider Dr. Keshav Ziegler Attending Provider Dr. Demetra Felipe Other Provider Dr. Demetra Felipe Attending Provider Dr. Candice Rossi Attending Provider [facility], Юлия Boone Referring Provid er [facility], Pinson Paolo Primary Care Pro vider EMA Mcduffie Attending Provider [facility], Pinson Paolo Primary Care Pro vider [facility], Pinson Veronicazman Referring Provid er EMA Mcduffie Attending Provider Dr. Candice Rossi Attending Provider Dr. Eder Castano Attending Provider Dr. Eder Castano Other Provider Klaudia Montes De Oca OD Unavailable Lucita Agarwal NP Primary Care Provider [facility], Pinson Paolo Primary Care Pro vider [facility], Pinson Paolo Referring Provid er Bruce HERRON, OSMAN Ott Attending Provider [facility], [facility] Primary Care Pro vider [facility], [facility] Referring Provid er Dr. Candice Rossi Attending Provider [facility], [facility] Primary Care Pro vider [facility], [facility] Referring Provid er Dr. Candice Rossi Attending Provider Unavailable Primary Care Provider Unavailabl e Stefano MEDICAL OFFICE ADMINISTRATOR, Lucita Primary Care Provider HARRIS, MARSHA K Admitting Unavailable HARRIS, MARSHA K Attending Unavailable STEFANO, LUCITA Primary Care Unavailable ANAHY MORALES, VIVIEN Martínez Attending Unavailabl e HARRIS, MARSHA K Referring Unavailable STEFANO, LUCITA Primary Care Unavailable HARRIS, MARSHA K Attending Unavailable HARRIS, MARSHA K Referring Unavailable STEFANO, LUCITA Primary Care Unavailable HARRIS, MARSHA K Attending Unavailable HARRIS, MARSHA K Referring Unavailable STEFANO, LUCITA Primary Care Unavailable HARRIS, MARSHA K Attending Unavailable HARRIS, MARSHA K Referring Unavailable STEFANO, LUCITA Primary Care Unavailable HARRIS, MARSHA K Referring Unavailable HARRIS, MARSHA K Attending Unavailable STEFANO, LUCITA Primary Care Unavailable HARRIS, MARSHA K Referring Unavailable HARRIS, MARSHA K Attending Unavailable HARRIS, MARSHA K Attending Unavailable STEAFNO, LUCITA Primary Care Unavailable STEFANO, LUCITA Primary Care Unavailable HARRIS, MARSHA K Attending Unavailable COOPERRIDER II, VIVIEN H Referring Unavailabl e STEFANO, LUCITA Primary Care Unavailable Stefano MEDICAL OFFICE ADMINISTRATOR-C, Lucita Primary Care Provider Stefano MEDICAL OFFICE ADMINISTRATOR-C, Lucita Referring Provider Omaira HERNANDEZ, Dr. Gaines Attending Provider Asif HERNANDEZ, Dr. Nava Attending Provider Omaira HERNANDEZ, Dr. Gaines Referring Provider [phone] Omaira HERNANDEZ, Dr. Gaines Other Provider Vicky MEDICAL OFFICE ADMINISTRATOR-C, Rhett Martínez Attending Provider Stefano MEDICAL OFFICE ADMINISTRATOR-C, Lucita Attending Provider Susanna Mcclellan Attending Provider Susanna Mcclellan Referring Provider [facility] Referring Provid er Trent HERNANDEZ, Dr. William Attending Provider Trent HERNANDEZ, Dr. William Referring Provider [phone] Roberth HERNANDEZ, Dr. Mauricio Attending Provider STEFANO, LUICTA Primary Care Unavailable SUSAN CONNOLLY (RES) Attending Unavailabl e Stefano MEDICAL OFFICE ADMINISTRATOR-C, Lucita Primary Care Provider Stefano MEDICAL OFFICE ADMINISTRATOR-C, Lucita Referring Provider Juliano Hairston Attending Provider Juliano Hairston Referring Provider Beam MEDICAL OFFICE ADMINISTRATOR-C, Haobudaniel Attending Provider Stefano MEDICAL OFFICE ADMINISTRATOR-C, Lucita Primary Care Provider Stefano MEDICAL OFFICE ADMINISTRATOR-C, Lucita Referring Provider Dr. Candice Rossi MD Attending Provider Dr. Candice Rossi MD Referring Provider Stefano MEDICAL OFFICE ADMINISTRATOR-C, Lucita Primary Care Provider Susanna Mcclellan Attending Provider Stefano MEDICAL OFFICE ADMINISTRATOR-C, Lucita Referring Provider [facility] Primary Care Pro vider Dr. Vinod Bustamante DO Other Provider Dr. Eder Castano MD Attending Provider Dr. Eder Castano MD Referring Provider Stefano MEDICAL OFFICE ADMINISTRATOR-C, Lucita Primary Care Provider Trent HERNANDEZ, Dr. William Attending Provider [facility] Paolo Referring Provid er Omaira HERNANDEZ, Dr. Gaines Other Provider Andrew Rossiour Attending Unavailable Isckarus, Mansour Referring Unavailable Stefano [facility], [facility] Primary Care Unavailabl e Stefano [facility], [facility] Attending Unavailabl e [facility], [facility] Primary Care Unavailabl e Elijah Gold Attending Unavailable Eder Castano Referring Unavailable [facility], [facility] Primary Care Unavailabl e Susanna Weathers Attending Unavailable Susanna Weathers Referring Unavailable [facility], [facility] Primary Care Unavailabl e Calabrpayton, Eder Attending Unavailable [facility], [facility] Primary Care Unavailabl e Stefano C, [facility] Referring Unavailabl e Isckarus, Mansour Attending Unavailable Isckarus, Mansour Referring Unavailable [facility], [facility] Primary Care Unavailabl e Calabrpayton, Eder Attending Unavailable [facility], [facility] Primary Care Unavailabl e Calabretta, Eder Referring Unavailable Calabrpayton, Eder Attending Unavailable [facility], [facility] Primary Care Unavailabl e Rileyabrpayton, Eder Referring Unavailable CalEder cowan Attending Unavailable [facility], [facility] Referring Unavailabl e Stefano C, [facility] Primary Care Unavailabl e Rileyabrpayton, Eder Consulting Unavailable Susanna Weathers Attending Unavailable [facility], [facility] Referring Unavailabl e [facility], [facility] Primary Care Unavailabl e Rhett Perry NP Attending Unavailable [facility], [facility] Referring Unavailabl e [facility], [facility] Care Unavailabl e Hang Lepe Attending Unavailable Trent, Heart [place] Referring Unavailable [facility], [facility] Primary Care Unavailabl e Eloy Bolanos Attending Unavailable [facility], [facility] Primary Care Unavailabl e Isckarus, Mansour Attending Unavailable Isckarus, Mansour Referring Unavailable Stefano [facility], [facility] Primary Care Unavailabl e Trent, Stewart Attending Unavailable Trent, Stewart Referring Unavailable [facility], [facility] Primary Care Unavailabl e Calabretta, Eder Attending Unavailable [facility], [facility] Primary Care Unavailabl e Calabretta, Eder Referring Unavailable Juliano Hairston Attending Unavailable Juliano Hairston Referring Unavailable [facility], [facility] Primary Care Unavailabl e CalabrEder cain Attending Unavailable [facility], Lucita Referring Unavailabl e Stefano VSC, Lucita Primary Care Unavailabl e Stefano VSC, Lucita Attending Unavailabl e Stefano VSC, Lucita Referring Unavailabl e [facility], [facility] Primary Care Unavailable Stefano VSC, Lucita Attending Unavailabl e Stefano VSC, Lucita Referring Unavailabl e Stefano VSC, Lucita Primary Care Unavailabl e Calabretta, Eder Attending Unavailable Stefano VSC, Lucita Referring Unavailabl e Stefano VSC, Lucita Primary Care Unavailabl e Calabretta, Deer Attending Unavailable Stefano VSC, Lucita Primary Care Unavailabl e Calabretta, Eder Attending Unavailable Calabretta, Eder Referring Unavailable Stefano VSC, Lucita Primary Care Unavailabl e Calabretta, Eder Consulting Unavailable Candice Rossi Attending Unavailable Stefano VSC, Lucita Primary Care Unavailabl e Juliano Hairston Attending Unavailable Stefano VSC, Lucita Referring Unavailabl e Stefano VSC, Lucita Primary Care Unavailabl e Stewart Newman Attending Unavailable [facility], [facility] Referring Unavailable Stefano VSC, Lucita Primary Care Unavailabl e Calabretta, Eder Attending Unavailable Stefano VSC, Lucita Referring Unavailabl e Stefano VSC, Lucita Primary Care Unavailabl e Roof MEDICAL OFFICE ADMINISTRATOR, Rhett H Attending Unavailable Roof MEDICAL OFFICE ADMINISTRATOR, Rhett H Referring Unavailable Stefano [facility], [facility] Primary Care Unavailabl e Candice Rossi Attending Unavailable [facility], [facility] Primary Care Unavailable [facility], [facility] Referring Unavailable Vinod Bustamante Consulting Unavailable Allergies Allergy Classification Reported Allergen(s) Allergy Type Date of Onset Reaction(s) Facility (20 sources) Cephalexin; Translations: [CEPHALEXIN] Drug Allergy 2 Rash [facility] (20 sources) Clindamycin; Translations: [CLINDAMYCIN] Drug Allergy 5 Intolerance [facility] Work Phone: (20 sources) Penicillins; Translations: [PENICILLINS] Propensity to adverse reactions 2 Rash [facility] (20 sources) Sulfonamides (Antibiotic); Translations: [SULFA (SULFONAMIDE ANTIBIOTICS)] Propensity to adverse reactions 5 Intolerance [facility] Work Phone: (6 sources) PLASTIC TAPE Propensity to adverse reactions 2 TEARS SKIN [facility] Work Phone: (14 sources) Adhesive Tape; Translations: [adhesive tape] Propensity to adverse reactions [address] [facility] Comment on above: TEARS SKIN (1 source) ALLERGIES NOT ON FILE; Translations: [ALLERGIES NOT ON FILE] Propensity to adverse reactions (disorder) [facility] 2 Repository (1 source) Cephalexin Drug Allergy [address] [facility] Repository (1 source) Clindamycin Drug Allergy [address] [facility] Repository Medications Current Medications Medication Drug Class(es) Dates Sig (Normalized) Sig (Original) Albuterol (20 sources) beta2-Adrenergic Agonist Start: 08-23-2017 Albuterol Sulfate 1 INHALER inhaler Active 2 NMA INHALATION EVERY 4 HOURS NEEDED as needed for Sob &/Or Wheezing August 23, 2017 9:10am Start: 08-23-2017 take 1 puff(s) by in halation every four hours as needed Albuterol Sulfate Active 2 PUFF INHALATION EVERY 4 HOURS NEEDED August 23, 2017 8:10am Start: 08-23-2017 take 1 puff(s) by in halation every four hours as needed Albuterol Sulfate Active 2 PUFF INHALATION EVERY 4 HOURS NEEDED August 23, 2017 9:10am Start: 06-11-2017 End: 08-23-2017 Albuterol Sulfate (Ventolin Hfa (Sp)) 1 INHALER inhaler Discontinued 1 - 2 NMA INHALATION EVERY 6 HOURS NEEDED as needed for Sob &/Or Wheezing June 11, 2017 12:00am August 23, 2017 9:10am Start: 06-11-2017 End: 08-23-2017 Albuterol Sulfate (Ventolin Hfa (Sp)) 1 INHALER inhaler Discontinued 1 - 2 PUFF INHALATION EVERY 6 HOURS NEEDED June 11, 2017 12:00am August 23, 2017 9:10am ALBUTEROL SULFAT E (PROVENTIL INHALATION) Inhale as instructed. 0 Active Comment on above: Inhale as instructed . amLODIPine 5 mg oral tablet (20 sources) Dihydropyridine Calcium Channel Dhara Start: 4 take 1 tablet by mouth once daily Amlodipine 5 mg tablet Active 5 mg PO daily September 28, 2024 1:00am Start: 04-22-2022 End: 09-28-2024 take 1 tablet by mouth once daily Amlodipine 2.5 mg tablet Discontinued 0 .ROUTE .COMPLEX 90 August 19, 2022 10:47am January 23, 2023 2:50pm Take 1 tablet by mouth once daily Comment on above: Take 2.5 mg by mouth once daily. apixaban 5 mg oral tablet (16 sources) Factor Xa Inhibitor Start: 09-21-2024 End: 09-22-2024 take 1 tablet by mouth twice daily Apixaban (Eliquis) 5 mg tablet Active 5 mg PO TWICE A DAY 60 September 22, 2024 10:17am aspirin 81 mg delayed release oral tablet (20 sources) Platelet Aggregation Inhibitor, Nonsteroidal Anti-inflammatory Drug Start: 06-11-2017 take 1 tablet by mouth once daily Aspirin 81 MG tablet Active 81 mg PO DAILY@0800 June 11, 2017 12:00am take 1 tablet by mouth once rhea y aspirin 81 mg chewable tablet Take 81 mg by mouth once daily. 0 Active Comment on above: Take 81 mg by mouth once daily. atenolol 50 mg oral tablet (20 sources) beta-Adrenergic Dhara Start: 08-12-2018 End: 10-04-2021 take 1 tablet by mouth once daily Atenolol 50 mg tablet Active 50 mg PO DAILY October 04, 2021 10:19pm Start: 06-11-2017 End: 08-12-2018 take 1 tablet by mouth twice daily Atenolol 50 MG tablet Discontinued 50 mg PO TWICE A DAY June 11, 2017 12:00am August 12, 2018 2:48pm take 1 tablet by susan th once daily atenolol 100 mg tablet Take 100 mg by mouth once daily. 0 Active Comment on above: Take 100 mg by mouth once daily. biotin 1 mg chewable tablet (12 sources) Start: 01-23-2023 take 1 tablet by mouth once daily Biotin 1,000 mcg tablet,chewable Active 1000 ug PO DAILY January 23, 2023 12:00am calcium ascorbate 500 mg oral tablet (19 sources) Start: 02-14-2021 take 1 g by mouth once daily Ascorbate Calcium (Vitamin C) 500 mg tablet Active 1 g PO DAILY February 14, 2021 12:00am Start: 02-14-2021 take 1 g by mouth once daily A scorbate Calcium (Vitamin C) Active 1 GM PO DAILY February 14, 2021 12:00am Calcium Carb-Magnesium Carb,Ox (Riley-Mag) 200 mg calcium- 100 mg tablet,chewable (8 sources) Start: 09-28-2024 Calcium Carb-Magnesium Carb,Ox (Riley-Mag) 200 mg calcium- 100 mg tablet,chewable Active {tbl} PO September 28, 2024 1:00am cholecalciferol 0.025 mg oral tablet (8 sources) Vitamin D Start: 09-28-2024 take 1 tablet by mouth once daily Cholecalciferol (Vitamin D3) 25 mcg (1,000 unit) tablet Active 25 ug PO daily September 28, 2024 1:00am erythromycin 0.005 mg/mg ophthalmic ointment (1 source) Macrolide, Macrolide Antimicrobial Start: 11-26-2023 End: 12-26-2023 erythromycin (ROMYCIN) 5 mg/gram (0.5 %) ophthalmic ointment Use 1 application in both eyes daily at bedtime. 3.5 g 0 11/26/2023 12/26/2023 Discontinued (Course of therapy completed) Comment on above: Use 1 application in both eyes daily at bedtime. fexofenadine hydrochloride 180 mg oral tablet (20 sources) Histamine-1 Receptor Antagonist Start: 02-14-2021 take 1 tablet by mouth once daily as needed Fexofenadine (Rubi Allergy) 180 mg tablet Active 180 mg PO DAILY as needed for allergy symptoms February 14, 2021 12:00am Start: 06-11-2017 End: 08-11-2018 take 1 tablet by mouth once daily Fexofenadine 180 MG tablet Discontinued 180 mg PO DAILY June 11, 2017 12:00am August 11, 2018 6:29pm Comment on above: Take 180 mg by mouth once daily. Fluticasone Propion-Salmeterol (20 sources) Corticosteroid, beta2-Adrenergic Agonist Start: 09-28-2024 Fluticasone Propion-Salmeterol 500-50 mcg/dose blister with device Active 1 NMA INHALATION TWICE A DAY as needed for Sob &/Or Wheezing September 28, 2024 4:29pm Start: 08-23-2017 End: 09-28-2024 take 1 puff(s) by inhalation twice daily as needed Fluticasone Propion-Salmeterol 1 PUFF inhaler Discontinued 1 NMA INHALATION TWICE A DAY as needed for Sob &/Or Wheezing August 23, 2017 9:10am September 28, 2024 4:29pm Start: 08-23-2017 take 1 puff(s) by in halation twice daily Fluticasone Propion-Salmeterol Active 1 PUFF INHALATION TWICE A DAY August 23, 2017 8:10am Start: 08-23-2017 take 1 puff(s) by in halation twice daily Fluticasone Propion-Salmeterol Active 1 PUFF INHALATION TWICE A DAY August 23, 2017 9:10am Start: 06-11-2017 End: 08-23-2017 Fluticasone Propion-Salmeter ol (Advair 500/50 Mcg Diskus) 1 PUFF inhaler Discontinued 1 PUFF INHALATION TWICE A DAY June 11, 2017 8:54am August 23, 2017 9:10am Start: 06-11-2017 End: 08-23-2017 take 1 puff(s) by inhalation twice daily as needed Fluticasone Propion-Salmeterol (Advair 500/50 Mcg Diskus) 1 PUFF inhaler Discontinued 1 NMA INHALATION TWICE A DAY as needed for Sob &/Or Wheezing June 11, 2017 12:00am August 23, 2017 9:10am Start: 06-11-2017 End: 08-23-2017 Fluticasone Propion-Salmeter ol (Advair 500/50 Mcg Diskus) 1 PUFF inhaler Discontinued 1 PUFF INHALATION TWICE A DAY June 10, 2017 11:00pm August 23, 2017 8:10am Start: 06-11-2017 End: 08-23-2017 Fluticasone Propion-Salmeter ol (Advair 500/50 Mcg Diskus) 1 PUFF inhaler Discontinued 1 PUFF INHALATION TWICE A DAY June 11, 2017 12:00am August 23, 2017 9:10am fluticasone-salm eterol (ADVAIR) 500-50 mcg/dose dsdv Inhale 2 Puffs as instructed as needed. 0 Active Comment on above: Inhale 2 Puffs as in structed as needed. hydroCHLOROthiazide 25 mg oral tablet (20 sources) Thiazide Diuretic Start: 2021 take 1 tablet by mouth once daily Hydrochlorothiazide 25 mg tablet Active 25 mg PO DAILY April 22, 2022 12:00am Start: 06-11-2017 End: 10-06-2021 take 1 tablet by mouth once daily Hydrochlorothiazide 25 MG tablet Discontinued 25 mg PO DAILY June 11, 2017 12:00am October 06, 2021 12:19pm Comment on above: Take 25 mg by mouth once daily. lisinopril 40 mg oral tablet (20 sources) Angiotensin Converting Enzyme Inhibitor Start: 04-22-2022 take 1 tablet by mouth once daily Lisinopril 40 mg tablet Active 40 mg PO DAILY April 22, 2022 12:00am Start: 02-10-2020 End: 10-06-2021 take 1 tablet by mouth once daily Lisinopril 40 mg tablet Discontinued 40 mg PO DAILY October 04, 2021 10:19pm October 06, 2021 12:19pm Start: 01-22-2019 End: 02-10-2020 take 1 tablet by mouth once daily Lisinopril 20 mg tablet Discontinued 20 mg PO DAILY January 22, 2019 12:00am February 10, 2020 10:25am Comment on above: Take 40 mg by mouth once daily. Magnesium Oxide (8 sources) Start: 09-28-2024 magnesium oxide Active PO September 28, 2024 1:00am meloxicam 15 mg oral tablet (20 sources) Nonsteroidal Anti-inflammatory Drug Start: 09-16-2023 take 1 tablet by mouth once daily Meloxicam 15 mg tablet Active 15 mg PO DAILY September 16, 2023 1:00am Start: 04-22-2022 End: 09-16-2023 take 1 tablet by mouth twice daily Meloxicam 7.5 mg tablet Discontinued 7.5 mg PO TWICE A DAY April 22, 2022 12:00am September 16, 2023 10:10am Start: 02-14-2021 End: 10-06-2021 take 7.5 mg by mouth twice daily Meloxicam 15 mg tablet Discontinued 7.5 mg PO TWICE A DAY 90 90 February 14, 2021 2:06pm October 06, 2021 12:19pm Start: 02-14-2021 End: 10-06-2021 take 7.5 mg by mouth twice daily Meloxicam Discontinued 7.5 MG PO TWICE A DAY 90 90 February 14, 2021 2:06pm October 06, 2021 12:19pm Start: 02-12-2019 End: 02-14-2021 take 0.5 tablet by mouth once daily Meloxicam 15 mg tablet Discontinued 15 mg PO DAILY 90 90 February 12, 2019 12:00am February 14, 2021 2:09pm 1/2 tab daily take 1 tablet by susan th once daily meloxicam (MOBIC) 7.5 mg tablet Take 7.5 mg by mouth once daily. 0 Active Comment on above: Take 7.5 mg by mouth once daily. 24 hr metFORMIN hydrochloride 500 mg extended release oral tablet (20 sources) Biguanide Start: 10-14-2022 take 1 tablet by mouth once daily Metformin 500 mg tablet extended release 24 hr Active 500 mg PO DAILY September 16, 2023 1:00am Start: 04-22-2022 End: 09-16-2023 Metformin 750 mg tablet exte nded release 24 hr Discontinued 500 mg PO AT BEDTIME April 22, 2022 2:27pm September 16, 2023 10:11am Start: 04-22-2022 End: 09-16-2023 take 500 mg by mouth at bedtime Metformin Discontinued 500 MG PO AT BEDTIME April 22, 2022 2:27pm September 16, 2023 10:11am Start: 06-11-2017 End: 04-22-2022 take 1 tablet by mouth every twenty-four hours at bedtime Metformin 750 MG tablet extended release 24 hr Discontinued 750 mg PO AT BEDTIME June 11, 2017 12:00am April 22, 2022 2:29pm Comment on above: Take 500 mg by mouth once daily. montelukast 10 mg oral tablet (20 sources) Leukotriene Receptor Antagonist Start: take 1 tablet by mouth once daily Montelukast 10 MG tablet Active 10 mg PO DAILY June 11, 2017 12:00am Comment on above: Take 10 mg by mouth daily at bedtime. omeprazole 20 mg delayed release oral capsule (20 sources) Proton Pump Inhibitor Start: take 1 capsule by mouth once daily Omeprazole 20 mg capsule,delayed release(DR/EC) Active 20 mg PO DAILY April 22, 2022 2:27pm Start: 02-14-2021 End: 04-22-2022 take 2 capsules by mouth once daily Omeprazole 20 mg capsule,delayed release(DR/EC) Discontinued 40 mg PO DAILY February 14, 2021 12:00am April 22, 2022 2:29pm Start: 02-14-2021 End: 04-22-2022 take 40 mg by mouth once daily Omeprazole Discontinued 40 MG PO DAILY February 14, 2021 12:00am April 22, 2022 2:29pm Start: 02-10-2020 End: 02-14-2021 take 1 capsule by mouth once daily Omeprazole 40 mg capsule,delayed release(DR/EC) Discontinued 40 mg PO DAILY February 10, 2020 12:00am February 14, 2021 2:05pm Start: 06-11-2017 End: 02-10-2020 take 1 capsule by mouth once daily Omeprazole 20 MG capsule Discontinued 20 mg PO DAILY June 11, 2017 12:00am February 10, 2020 10:11am Comment on above: Take 20 mg by mouth once daily. 24 hr oxybutynin chloride 10 mg extended release oral tablet (10 sources) Cholinergic Muscarinic Antagonist Start: take 1 tablet by mouth once daily Oxybutynin Chloride 10 mg tablet extended release 24hr Active 10 mg PO DAILY September 04, 2023 1:00am pravastatin sodium 40 mg oral tablet (20 sources) HMG-CoA Reductase Inhibitor Start: take 1 tablet by mouth at bedtime Pravastatin 40 mg tablet Active 40 mg PO AT BEDTIME February 14, 2021 12:00am Start: 06-11-2017 End: 02-14-2021 take 1 tablet by mouth at bedtime Pravastatin 20 MG tablet Discontinued 20 mg PO AT BEDTIME June 11, 2017 12:00am February 14, 2021 2:04pm Comment on above: Take 20 mg by mouth once daily. prednisoLONE acetate 10 mg/ml ophthalmic suspension (5 sources) Corticosteroid Start: 12-25-2023 End: 01-29-2024 prednisoLONE acetate (PRED FORTE) 1 % ophthalmic suspension Use 1 Drop in the left eye three times a day. Until 01/29/2024, then stop 10 mL 1 12/25/2023 01/29/2024 Active Start: 12-25-2023 End: 01-29-2024 prednisoLONE acetate (PRED F ORTE) 1 % ophthalmic suspension Use 1 Drop in the left eye four times daily. 10 mL 1 12/25/2023 12/31/2023 Discontinued Start: 03-14-2023 prednisoLONE a cetate (PRED FORTE) 1 % ophthalmic suspension Use 1 Drop in the right eye four times daily. 5 mL 2 03/14/2023 Active Start: 03-14-2023 prednisoLONE a cetate (PRED FORTE) 1 % ophthalmic suspension Use 1 Drop in the right eye four times daily. 5 mL 2 03/14/2023 Active Comment on above: Use 1 Drop in the ri ght eye four times daily. Use 1 Drop in the le ft eye four times daily. Use 1 Drop in the le ft eye three times a day. Until 01/29/2024, then stop proparacaine hydrochloride 5 mg/ml ophthalmic solution (2 sources) Local Anesthetic Start: 03-03-2023 End: 03-03-2023 proparacaine 0.5 % 1 Drop (ALCAINE) Start: 12-23-2022 End: 12-24-2022 proparacaine 0.5 % 1 Drop (A LCAINE) propylene glycol 6 mg/ml ophthalmic solution (15 sources) Start: 01-23-2023 take 0.6 drop(s) into the eye(s) three times daily Propylene Glycol (Pf) (Systane Complete Pf) 0.6 % drops Active 1 NMA OPHTHALMIC THREE TIMES A DAY January 23, 2023 12:00am Start: 01-23-2023 take 0.6 drop(s) int o the eye(s) three times daily Propylene Glycol (Pf) (Systane Complete Pf) 0.6 % drops Active 1 DRP OPHTHALMIC THREE TIMES A DAY January 23, 2023 12:00am Start: 11-29-2022 propylene glyc oL (SYSTANE COMPLETE) 0.6 % drop Use 1 Drop in both eyes three times daily. 20 mL 2 11/29/2022 Active Start: 11-29-2022 propylene glyc oL (SYSTANE COMPLETE) 0.6 % drop Use 1 Drop in both eyes three times daily. 20 mL 2 11/29/2022 Active Comment on above: Use 1 Drop in both e yes three times daily. Propylene Glycol (Pf) (Systane Complete Pf) 0.6 % drops (3 sources) Start: 01-23-2023 take 0.6 drop(s) into the eye(s) three times daily Propylene Glycol (Pf) (Systane Complete Pf) 0.6 % drops Active 1 DRP OPHTHALMIC THREE TIMES A DAY January 22, 2023 11:00pm Start: 01-23-2023 take 0.6 drop(s) int o the eye(s) three times daily Propylene Glycol (Pf) (Systane Complete Pf) 0.6 % drops Active 1 DRP OPHTHALMIC THREE TIMES A DAY January 23, 2023 12:00am vitamin b12 1 mg oral tablet (8 sources) Vitamin B12 Start: 09-28-2024 take 1 tablet by mouth once daily Cyanocobalamin (Vitamin B-12) 1,000 mcg tablet Active 1000 ug PO daily September 28, 2024 1:00am Completed/Discontinued Medications Medication Drug Class(es) Dates Sig (Normalized) Sig (Original) acetaminophen 325 mg / HYDROcodone bitartrate 5 mg oral tablet (20 sources) Opioid Agonist Start: 01-15-2019 End: 01-21-2019 Hydrocodone-Acetami nophen 1 TABLET tablet Discontinued 1 - 2 {tbl} PO EVERY 4 HOURS NEEDED as needed for Pain 25 04January 15, 2019 12:00am January 20, 2019 12:00am January 21, 2019 12:08am Start: 01-15-2019 End: 01-21-2019 take 1 tablet by mouth every four hours as needed Hydrocodone-Acetaminophen Discontinued 1 - 2 TABLET PO EVERY 4 HOURS NEEDED 25 04January 15, 2019 12:00am January 21, 2019 12:08am acetaminophen 325 mg / oxyCODONE hydrochloride 5 mg oral tablet (20 sources) Opioid Agonist Start: 01-15-2019 End: 01-21-2019 Oxycodone-Acetaminophen 1 TABLET tablet Discontinued 1 - 2 {tbl} PO EVERY 4 HOURS NEEDED as needed for Pain 25 04January 15, 2019 12:00am January 20, 2019 12:00am January 21, 2019 12:08am Start: 01-15-2019 End: 01-21-2019 take 1 tablet by mouth every four hours as needed Oxycodone-Acetaminophen Discontinued 1 - 2 TABLET PO EVERY 4 HOURS NEEDED 25 04January 15, 2019 12:00am January 21, 2019 12:08am Start: 06-18-2017 End: 08-11-2018 Oxycodone-Acetaminophen 1 TA BLET tablet Discontinued 1 - 2 {tbl} PO EVERY 6 HOURS NEEDED as needed for Pain June 18, 2017 12:00am August 11, 2018 6:28pm Start: 06-18-2017 End: 08-11-2018 take 1 tablet by mouth every six hours as needed Oxycodone-Acetaminophen Discontinued 1 - 2 TABLET PO EVERY 6 HOURS NEEDED June 18, 2017 12:00am August 11, 2018 6:28pm albuterol 0.833 mg/ml / ipratropium bromide 0.167 mg/ml inhalation solution (7 sources) Anticholinergic, beta2-Adrenergic Agonist Start: 02-03-2025 End: 02-08-2025 take 1 mL by inhalation every six hours Ipratropium-Albuterol 0.5 mg-3 mg(2.5 mg base)/3 mL solution for nebulization Discontinued 3 mL INHALATION EVERY 6 HOURS 90 5 February 03, 2025 12:00am February 07, 2025 12:00am February 08, 2025 12:07am anastrozole 1 mg oral tablet (20 sources) Aromatase Inhibitor Start: 07-14-2023 End: 09-04-2023 take 1 tablet by mouth once daily Anastrozole Discontinued 0 .ROUTE .COMPLEX July 14, 2023 10:14am September 04, 2023 2:56pm Take 1 tablet by mouth once daily Start: 07-14-2023 End: 09-04-2023 take 1 tablet by mouth once daily Anastrozole Discontinued 0 .ROUTE .COMPLEX July 14, 2023 9:14am September 04, 2023 1:56pm Take 1 tablet by mouth once daily Start: 07-28-2019 End: 03-04-2024 take 1 tablet by mouth once daily Anastrozole 1 mg tablet Discontinued 0 .ROUTE .COMPLEX July 14, 2023 10:14am September 04, 2023 2:56pm Take 1 tablet by mouth once daily Start: 02-02-2019 End: 05-09-2019 take 1 tablet by mouth once daily Anastrozole 1 MG tablet Discontinued 1 mg PO DAILY April 28, 2019 5:45pm May 02, 2019 12:00am May 09, 2019 12:09am ascorbic acid 500 mg oral tablet (6 sources) Vitamin C take 1 tablet by mouth once daily ascorbic acid, vitamin C, (VITAMIN C) 500 mg tablet Take 500 mg by mouth once daily. 0 Active Comment on above: Take 500 mg by mouth once daily. azithromycin 500 mg oral tablet (20 sources) Macrolide Antimicrobial Start: 10-06-20 End: 04-22-20 22 take 1 tablet by mouth once daily Azithromycin 500 mg tablet Discontinued 500 mg PO DAILY 1 1 April 22, 2022 2:27pm April 22, 2022 2:44pm calcium carbonate 1500 mg oral tablet (19 sources) Start: 02-15-20 End: 09-28-20 24 take 1 tablet by mouth once daily Calcium Carbonate (Calcium 600) 600 mg calcium (1,500 mg) tablet Discontinued 600 mg PO DAILY February 14, 2021 12:00am September 28, 2024 4:28pm calcium carbonate 1250 mg / cholecalciferol 0.01 mg chewable tablet (19 sources) Vitamin D Start: 06-11-20 17 End: 08-11-20 18 Calcium Carbonate-Vitamin D3 1 EACH tablet,chewable Discontinued 1 {tbl} PO DAILY June 11, 2017 12:00am August 11, 2018 6:28pm Start: 06-11-2017 End: 08-11-2018 take 1 tablet by mouth once daily Calcium Carbonate-Vitamin D3 Discontinued 1 TABLET PO DAILY June 11, 2017 12:00am August 11, 2018 6:28pm Calcium Carbonate / vitamin D3 (6 sources) CALCIUM CARBONATE/VITAMIN D3 (CALCIUM 600 + D ORAL) Take by mouth. 0 Active Comment on above: Take by mouth. CPAP (6 sources) CPAP dextromethorphan hydrobromide 2 mg/ml / guaiFENesin 20 mg/ml oral solution (7 sources) Uncompetitive Q-idugjr-V-aspartate Receptor Antagonist, Sigma-1 Agonist Start: 025 End: 025 take 1 mL by mouth every four to six hours as needed for cough Dextromethorphan-Guaife nesin 10-100 mg/5 mL liquid Discontinued 10 mL PO EVERY 4-6 HOURS as needed for cough 500 February 03, 2025 12:00am March 10, 2025 1:37pm ergocalciferol 1.25 mg oral capsule (20 sources) Provitamin D2 Compound Start: 020 End: 024 Ergocalciferol (Vitamin D2) 1,250 mcg (50,000 unit) capsule Discontinued 15773 U PO EVERY WEEK February 10, 2020 10:09am September 28, 2024 4:26pm Start: 02-10-2020 take 73350 [IU] by m outh every week Ergocalciferol (Vitamin D2) Active 81618 UNIT PO EVERY WEEK February 10, 2020 10:09am Start: 06-11-2017 End: 02-10-2020 Ergocalciferol (Vitamin D2) 50,000 UNIT capsule Discontinued 63199 U PO MO June 11, 2017 12:00am February 10, 2020 10:11am fluorometholone 1 mg/ml ophthalmic suspension (15 sources) Corticosteroid Start: 01-23-2023 End: 09-17-2024 Fluorometholone 0.1 % drops,suspension Discontinued 1 NMA OPHTHALMIC THREE TIMES A DAY January 23, 2023 12:00am September 17, 2024 4:47pm rt eye Start: 11-29-2022 End: 12-26-2023 fluorometholone (FML LIQUID FILM) 0.1 % ophthalmic suspension Use 1 Drop in the left eye three times a day. 5 mL 1 11/26/2023 12/26/2023 Discontinued (Course of therapy completed) Comment on above: Use 1 Drop in the ri ght eye three times daily. Use 1 Drop in the le ft eye three times a day. fluticasone (6 sources) Corticosteroid FLUTICASONE PROPIONATE (FLONASE NASAL) Use in the nose as needed. 0 Active Comment on above: Use in the nose as n eeded. furosemide 20 mg oral tablet (20 sources) Loop Diuretic Start: 06-11-20 End: 08-12-20 take 1 tablet by mouth once daily Furosemide 20 MG tablet Discontinued 20 mg PO DAILY June 11, 2017 12:00am August 12, 2018 2:48pm take 3 tablets by mouth once laurence ly furosemide (LASIX) 20 mg tablet Take 60 mg by mouth once daily. 0 Active Comment on above: Take 60 mg by mouth once daily. 12 hr guaiFENesin 1200 mg extended release oral tablet (19 sources) Start: 08-23-20 End: 08-11-20 18 take 1 tablet by mouth twice daily Guaifenesin 1,200 MG tablet Discontinued 1200 mg PO TWICE A DAY August 23, 2017 12:00am August 11, 2018 6:28pm ketorolac tromethamine 5 mg/ml ophthalmic solution (5 sources) Nonsteroidal Anti-inflammatory Drug, Cyclooxygenase Inhibitor Start: 12-31-19 keTORolac (ACULAR) 0.5 % ophthalmic solution Use 1 Drop in the left eye three times a day. Until 01/29/2024, then stop 5 mL 0 12/31/2023 Active Start: 12-25-2023 End: 01-29-2024 take 1 drop(s) into the eye(s) four times daily keTORolac (ACULAR) 0.5 % ophthalmic solution Use 1 Drop in the left eye four times daily. 5 mL 1 12/25/2023 12/31/2023 Discontinued Start: 03-14-2023 take 1 drop(s) into the eye(s) four times daily keTORolac (ACULAR) 0.5 % ophthalmic solution Use 1 Drop in the right eye four times daily. 5 mL 2 03/14/2023 Active Start: 03-14-2023 take 1 drop(s) into the eye(s) four times daily keTORolac (ACULAR) 0.5 % ophthalmic solution Use 1 Drop in the right eye four times daily. 5 mL 2 03/14/2023 Active Comment on above: Use 1 Drop in the ri ght eye four times daily. Use 1 Drop in the le ft eye four times daily. Use 1 Drop in the le ft eye three times a day. Until 01/29/2024, then stop levoFLOXacin 500 mg oral tablet (20 sources) Quinolone Antimicrobial Start: 02-04-20 End: 02-11-20 25 take 1 tablet by mouth every twenty-four hours Levofloxacin 500 mg tablet Discontinued 500 mg PO Q24H 7 7 February 03, 2025 12:00am February 09, 2025 12:00am February 10, 2025 12:08am Start: 08-23-2017 End: 08-11-2018 take 1 tablet by mouth once daily Levofloxacin 750 MG tablet Discontinued 750 mg PO DAILY August 23, 2017 12:00am August 11, 2018 6:28pm losartan potassium 50 mg oral tablet (20 sources) Angiotensin 2 Receptor Dhara Start: 06-11-2017 End: 01-22-2019 take 1 tablet by mouth twice daily Losartan 50 MG tablet Discontinued 50 mg PO TWICE A DAY June 11, 2017 12:00am January 22, 2019 8:15am take 1 tablet by mouth once rhea y losartan (COZAAR) 100 mg tablet Take 100 mg by mouth once daily. 0 Active Comment on above: Take 100 mg by mouth once daily. methylPREDNISolone 4 mg oral tablet (7 sources) Corticosteroid Start: 2024 End: 2024 take 1 tablet by mouth once Methylprednisolone (Medrol (Suleiman)) 4 mg tablets,dose pack Discontinued 4 mg PO per package directions 21 February 03, 2025 12:00am February 08, 2025 12:00am February 09, 2025 12:06am microencapsulated potassium chloride 20 meq extended release oral tablet (20 sources) Start: 2016 End: 2017 take 1 tablet by mouth once daily Potassium Chloride 20 MEQ tablet Discontinued 20 meq PO DAILY@0800 August 23, 2017 12:00am August 12, 2018 2:49pm POTASSIUM CHLORI DE (KLOR-CON M20 ORAL) Take by mouth. 0 Active Comment on above: Take by mouth. predniSONE 20 mg oral tablet (19 sources) Start: 08-23-2017 End: 08-11-2018 take 1 tablet by mouth twice daily Prednisone 20 MG tablet Discontinued 20 mg PO TWICE A DAY August 23, 2017 12:00am August 11, 2018 6:29pm Semaglutide (10 sources) Start: 09-04-2023 End: 03-04-2024 Semaglutide (Ozempic) 0.25 mg or 0.5 mg (2 mg/3 mL) pen injector Discontinued 0.5 mg SC EVERY WEEK September 04, 2023 1:00am March 04, 2024 1:24pm Start: 09-04-2023 Semaglutide (O zempic) 0.25 mg or 0.5 mg (2 mg/3 mL) pen injector Active 0.5 MG SC EVERY WEEK September 04, 2023 1:00am Start: 09-04-2023 Semaglutide (O zempic) 0.25 mg or 0.5 mg (2 mg/3 mL) pen injector Active 0.5 MG SC EVERY WEEK September 04, 2023 12:00am Problems Active Problems Problem Classification Problem Date Documented Da te Episodic/Chronic Acute and unspecified renal failure (20 sources) Prerenal azotemia; Translations: [Unspecified kidney failure] Chronic Acute and unspecified renal failure (20 sources) Injury of kidney; Translations: [Acute kidney failure, unspecified] Episodic Acute bronchitis (15 sources) Acute bronchitis; Translations: [Acute bronchitis, unspecified] Onset: 5 02-03-2025 Episodic Administrative/social admission (20 sources) Patient encounter status; Translations: [Counseling, unspecified] 02-09-2020 Episodic Allergic reactions (2 sources) Allergy to penicillin; Translations: [Allergy status to penicillin] 03-20-2023 Episodic Asthma (19 sources) Exacerbation of asthma; Translations: [Unspecified asthma with (acute) exacerbation] 04-12-2019 Chronic Cancer of breast (20 sources) Intraductal carcinoma in situ of breast; Translations: [Intraductal carcinoma in situ of unspecified breast] Onset: 4 Chronic Comment on above: CHEK2 positive, BRCA 1/2 negative Cardiac dysrhythmias (17 sources) Atrial fibrillation; Translations: [Unspecified atrial fibrillation] Onset: 5 09-28-2024 Chronic Cardiac dysrhythmias (20 sources) Bradycardia; Translations: [Bradycardia, unspecified] Onset: 3 Episodic Cataract (19 sources) Senile combined form cataract of right eye; Translations: [Combined forms of age-related cataract, right eye] Onset: 3 Chronic Congestive heart failure; nonhypertensive (9 sources) Congestive heart failure; Translations: [Heart failure, unspecified] Onset: 3 Chronic Diabetes mellitus with complications (1 source) Type 2 diabetes mellitus; Translations: [Type 2 diabetes mellitus with diabetic cataract] 03-20-2023 Chronic Diabetes mellitus without complication (11 sources) Diabetes mellitus type 2 without retinopathy; Translations: [Type 2 diabetes mellitus without complications] Onset: 3 Chronic Disorders of lipid metabolism (20 sources) Hyperlipidemia; Translations: [Hyperlipidemia, unspecified] Onset: 3 Chronic Esophageal disorders (9 sources) Gastroesophageal reflux disease without esophagitis; Translations: [Gastro-esophageal reflux disease without esophagitis] 03-20-2023 Chronic Essential hypertension (20 sources) Essential hypertension; Translations: [Essential (primary) hypertension] Onset: 3 Chronic Fluid and electrolyte disorders (20 sources) Hypokalemia; Translations: [Hypokalemia] Episodic Heart valve disorders (19 sources) Non-rheumatic mitral regurgitation ; Translations: [Nonrheumatic mitral (valve) insufficiency] 02-09-2020 Chronic Hypertension with complications and secondary hypertension (1 source) Hypertensive heart failure; Translations: [Hypertensive heart disease with heart failure] 03-20-2023 Chronic Inflammation; infection of eye (except that caused by tuberculosis or sexually transmitteddisease) (9 sources) Bilateral punctate keratitis of eyes; Translations: [Punctate keratitis, bilateral] Onset: 3 Chronic Influenza (1 source) Influenza due to unidentified influenza virus with other respiratory manifestations; Translations: [Influenza] Onset: 5 Episodic Intestinal infection (20 sources) Enteric campylobacteriosis; Translations: [Campylobacter enteritis] Episodic Malaise and fatigue (18 sources) Fatigue; Translations: [Other fatigue] Onset: 5 04-22-2022 Episodic Nonmalignant breast conditions (8 sources) Breast lump; Translations: [Unspecified lump in the left breast, unspecified quadrant] Onset: 5 03-18-2025 Episodic Nutritional deficiencies (20 sources) Nutritional marasmus; Translations: [Unspecified severe protein-calorie malnutrition] Chronic Other aftercare (1 source) Long-term current use of oral hypoglycemic medication; Translations: [terminal make up operator (current) use of oral hypoglycemic drugs] 03-20-2023 Episodic Other aftercare (1 source) Encounter for adjustment and management of vascular access device; Translations: [Encounter for adjustment and management of vascular access device] Onset: 5 Episodic Other bone disease and musculoskeletal deformities (19 sources) Osteopenia; Translations: [Other specified disorders of bone density and structure, unspecified site] 02-28-2021 Episodic Other bone disease and musculoskeletal deformities (10 sources) Other specified disorders of bone density and structure, unspecified site; Translations: [Disorder of bone and cartilage, unspecified] Episodic Other disorders of stomach and duodenum (1 source) Upset stomach; Translations: [Functional dyspepsia] 09-19-2023 Episodic Other eye disorders (4 sources) H/O: L cataract extraction; Translations: [Cataract extraction status, left eye] Onset: 4 12-26-2023 Episodic Other gastrointestinal disorders (12 sources) Dysphagia; Translations: [Dysphagia, unspecified] 08-11-2024 Episodic Other gastrointestinal disorders (1 source) Diarrhea, unspecified; Translations: [Diarrhea, unspecified type] Onset: 5 Episodic Other lower respiratory disease (9 sources) Dyspnea on exertion; Translations: [Other forms of dyspnea] 09-16-2023 Episodic Other nutritional; endocrine; and metabolic disorders (19 sources) Ketosis; Translations: [Other specified metabolic disorders] 10-04-2021 Chronic Other nutritional; endocrine; and metabolic disorders (1 source) Other specified metabolic disorders; Translations: [Acidosis] Chronic Other screening for suspected conditions (not mental disorders or infectious disease) (20 sources) Mammography abnormal; Translations: [Other abnormal and inconclusive findings on diagnostic imaging of breast] Onset: 4 Episodic Other upper respiratory infections (1 source) Acute upper respiratory infection, unspecified; Translations: [Upper respiratory tract infection, unspecified type] Onset: 5 Episodic Otitis media and related conditions (14 sources) Acute suppurative otitis media with spontaneous rupture of ear drum; Translations: [Acute suppurative otitis media with spontaneous rupture of ear drum, right ear] 02-03-2025 Episodic Pneumonia (except that caused by tuberculosis or sexually transmitted disease) (19 sources) Pneumonia; Translations: [Pneumonia, unspecified organism] 04-12-2019 Episodic Residual codes; unclassified (2 sources) Sleep apnea; Translations: [Sleep apnea, unspecified] Chronic Residual codes; unclassified (1 source) Obstructive sleep apnea syndrome; Translations: [Obstructive sleep apnea (adult) (pediatric)] 03-20-2023 Chronic Residual codes; unclassified (19 sources) Genetic susceptibility to cancer; Translations: [Genetic susceptibility to malignant neoplasm of breast] 01-02-2022 Episodic Comment on above: heterozygote CHEK2 Residual codes; unclassified (10 sources) Genetic susceptibility to malignant neoplasm of breast; Translations: [Genetic susceptibility to malignant neoplasm of breast] Episodic Residual codes; unclassified (16 sources) Estrogen receptor positive tumor; Translations: [Estrogen receptor positive status [ER+]] 07-17-2022 Episodic Residual codes; unclassified (12 sources) Early satiety; Translations: [Early satiety] 11-11-2024 Episodic Unclassified (1 source) Cough, unspecified; Translations: [Cough, unspecified] Onset: Past or Other Problems Problem Classification Problem Date Documented Da te Episodic/Chronic Other eye disorders (8 sources) Tear film insufficiency; Translations: [Dry eye syndrome of bilateral lacrimal glands] Onset: 11-29-2022 Episodic Other eye disorders (5 sources) H/O: R cataract extraction; Translations: [Cataract extraction status, right eye] Onset: 03-14-2023 Episodic Other gastrointestinal disorders (1 source) Dysphagia, unspecified; Translations: [Dysphagia, unspecified] Onset: 12-02-2024 Episodic Pneumonia (except that caused by tuberculosis or sexually transmitted disease) (19 sources) Pneumonia (except that caused by tuberculosis or sexually transmitted disease) 04-12-2019 Residual codes; unclassified (1 source) Early satiety; Translations: [Early satiety] Onset: 12-17-2024 Episodic Results Test Name Value Interpretation Reference Range Facility MR/PAT.Connie 04-22-2025 MR/PAT.[facility] Medical Records Department [address] [place] [address] PAT - Anesthesia 04/22/25 1040 MR#: [id number] Acct: [id number] Name: WINIFRED VÁSQUEZ Rep #: [id number] : 1950 74 From: Munir Adkins MD PCP: KRYSTIAN Ledesma, MEDICAL OFFICE ADMINISTRATOR-C Status:PRE [facility] Y Race: C Location: [facility] Pre-Assessment Diagnosis/Proposed Procedure Planned Operative Procedure(s): STEREO WIRE LOC, LUMPECTOMY LEFT BREAST Anesthesia History Anesthesia History - 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 When Was Last Pacemaker Check QUESTION #4 FULL TEXT: You/Your Family Experience fever (hyperthermia) with Anesthesia Last Oral Intake Last Oral intake: Last Oral Intake NPO since Meds taken in AM with sips of water? Meds patient instructed to take am of surgery PONV PONV - coat operator insulator: PONV - coat operator insulator Female Yes 04/21/25 14:18 HX of Motion Sickness No 04/21/25 14:18 HX of N/V After Surgery No 04/21/25 14:18 Non-Smoker Yes 04/21/25 14:18 Duration of Surgery greater No 04/21/25 14:18 than 60 minutes Number of Risk Factors 2 04/21/25 14:18 PONV Score Moderate Risk 04/21/25 14:18 Height Weight Height Weight: Anesthesia: Height Weight Height 4 ft 11 in 04/20/25 09:56 Respiratory Assessment Respiratory Assessment - coat operator insulator: Respiratory Tract Infection Hx - coat operator insulator Hx Respiratory Tract Infection No 04/21/25 14:18 STOP Sleep Apnea STOP Sleep Apnea - coat operator insulator: STOP Sleep Apnea - coat operator insulator Hx Hypertension Yes: CONTROLLED WITH MEDS 04/21/25 14:18 Hx Sleep Apnea Yes 04/21/25 14:18 CPAP Yes 04/21/25 14:18 BIPAP No 04/21/25 14:18 Do you snore loudly (louder than talking or can be heard Do you often feel tired/ fatigued/ sleepy during daytime? Has anyone observed you stop breathing during sleep? STOP Results Positive 04/21/25 14:18 QUESTION #5 FULL TEXT : Do you snore loudly (louder than talking or can be heard through closed doors)? 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 Specify any problems Hx of Preganancy in last 3 No 04/21/25 14:18 Months Nurse Filling Out Transfusion [id number] 04/21/25 14:18 Questions: Date: 04/21/25 04/21/25 14:18 Time: 14:22 04/21/25 14:18 Patient unable to answer at this time (ie. 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 Hx Now Gestational Age (in weeks): EDC: Hx Hx Para Hx Section SAB PFS Medical History (Updated 04/21/25 @ 14:29 by George Lemons) History of Holter monitoring Gastric reflux History of CHF (congestive heart failure) History of atrial fibrillation Left breast mass Wears glasses Cancer Diabetes Arthritis High cholesterol Non-smoker CPAP (continuous positive airway pressure) dependence Sleep apnea Shortness of breath on exertion History of edema History of stress test Cardiology follow-up encounter History of echocardiogram Preoperative cardiovascular examination Skin cancer (melanoma) ER+ (estrogen receptor positive status) 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 cancer Hypertension Osteopenia due to cancer therapy Bradycardia KRISTY (obstructive sleep apnea) DCIS (ductal carcinoma in situ) Breast cancer, right Nonrheumatic mitral (valve) insufficiency Obstructive sleep apnea Type 2 diabetes mellitus Osteoarthritis Hyperlipidemia Asthma Obesity Essential hypertension Home Medications ???Medic (more content not included)... 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 When Was Last Pacemaker Check QUESTION #4 FULL TEXT: You/Your Family Experience fever (hyperthermia) with Anesthesia Last Oral Intake Last Oral intake: Last Oral Intake NPO since Meds taken in AM with sips of water? Meds patient instructed to take am of surgery PONV PONV - coat operator insulator: PONV - coat operator insulator Female Yes 04/21/25 14:18 HX of Motion Sickness No 04/21/25 14:18 HX of N/V After Surgery No 04/21/25 14:18 Non-Smoker Yes 04/21/25 14:18 Duration of Surgery greater No 04/21/25 14:18 than 60 minutes Number of Risk Factors 2 04/21/25 14:18 PONV Score Moderate Risk 04/21/25 14:18 Height Weight Height Weight: Anesthesia: Height Weight Height 4 ft 11 in 04/20/25 09:56 Respiratory Assessment Respiratory Assessment - coat operator insulator: Respiratory Tract Infection Hx - coat operator insulator Hx Respiratory Tract Infection No 04/21/25 14:18 STOP Sleep Apnea STOP Sleep Apnea - coat operator insulator: STOP Sleep Apnea - coat operator insulator Hx Hypertension Yes: CONTROLLED WITH MEDS 04/21/25 14:18 Hx Sleep Apnea Yes 04/21/25 14:18 CPAP Yes 04/21/25 14:18 BIPAP No 04/21/25 14:18 Do you snore loudly (louder than talking or can be heard Do you often feel tired/ fatigued/ sleepy during daytime? Has anyone observed you stop breathing during sleep? STOP Results Positive 04/21/25 14:18 QUESTION #5 FULL TEXT : Do you snore loudly (louder than talking or can be heard through closed doors)? 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 Specify any problems Hx of Preganancy in last 3 No 04/21/25 14:18 Months Nurse Filling Out Transfusion [id number] 04/21/25 14:18 Questions: Date: 04/21/25 04/21/25 14:18 Time: 14:22 04/21/25 14:18 Patient unable to answer at this time (ie. 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 Hx Now Gestational Age (in weeks): EDC: Hx Hx Para Hx Section SAB PFSH Medical History (Updated 04/21/25 @ 14:29 by George Lemons) History of Holter monitoring Gastric reflux History of CHF (congestive heart failure) History of atrial fibrillation Left breast mass Wears glasses Cancer Diabetes Arthritis High cholesterol Non-smoker CPAP (continuous positive airway pressure) dependence Sleep apnea Shortness of breath on exertion History of edema History of stress test Cardiology follow-up encounter History of echocardiogram Preoperative cardiovascular examination Skin cancer (melanoma) ER+ (estrogen receptor positive status) 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 cancer Hypertension Osteopenia due to cancer therapy Bradycardia KRISTY (obstructive sleep apnea) DCIS (ductal carcinoma in situ) Breast cancer, right Nonrheumatic mitral (valve) insufficiency Obstructive sleep apnea Type 2 diabetes mellitus Osteoarthritis Hyperlipidemia Asthma Obesity Essential hypertension Home Medications ???Medic (more content not included)... Normal [facility] Surgical pathology reportOrd ered By: Jerri Luu on 04-14-2025 Surgical pathology study [facility] Immunohistochemical Stainson 04-11-2025 Immunohistochemical Stains Patient Age/Sex Location Account Attending Physician WINIFRED VÁSQUEZ 74/F BIRAD [id number] Dr. Eder Castano MD Specimen: [id number] Received: 04/11/25 Status: GARCIA Mederos Num: [id number] Spec Type: BREAST BX Subm Dr: Dr. Eder Castano MD HEADER OPERATION: Left breast stereotactic biopsy PRE-OP DIAGNOSIS: Left breast mass 10-11 o'clock with calcifications TISSUE SUBMITTED: A- Left breast, calcifications in chamber #3 Ischemic Time: 19 minute Fixation Time: 30 hours, 21min MICROSCOPIC DIAGNOSIS A. Left breast, mass, 10-11 o'clock, core biopsy: * Ductal carcinoma in situ (DCIS), intermediate nuclear grade. * Microcalcifications noted, negative for necrosis. * IHC for E-cadherin, Calponin, SMMS, CK5/6 and p40 support the diagnosis. * Estrogen Receptor: positive (100%, strong intensity). * Progesterone receptor: positive (25%, strong intensity). MICROSCOPIC DESCRIPTION Slides are reviewed. All matched controls reacted appropriately. These tests were developed and their performance characteristics determined by [facility]. They may not have been cleared or approved by the U.S. Food and Drug Administration. The FDA has determined that such clearance or approval is not necessary.??? The above immunohistochemical/dualISH ???markers are ordered and reviewed by the Pathologist. GROSS DESCRIPTION A.??? Received fresh and subsequently placed in formalin labeled with the patient's name and date of are 5 montes-yellow soft tissue cores within 3 oriented chambers, ranging from 1.4 cm to 2.7 cm in length by an average of by 0.4 cm in diameter.??? The specimen is entirely submitted in 2 cassettes as follows: A1: 3 soft tissue cores from chamber #3, confirmed microcalcification on imagingA2: 2 soft tissue cores from chambers #1 and #2 Cold ischemic time: 19 minutesFormalin fixation time: 30 hours, 21 minutes NV 04/11/2025 CPT:59416, 39421, [id number], [id number] Patient Age/Sex Location Account Attending Physician WINIFRED VÁSQUEZ 74/F DENISE [id number] Dr. Eder Castano MD Signed (signature on file) Dr. Jerri Luu MD 04/14/[address] [facility] Comment on above: Performed By: #### P [facility] ####[facility] [id number] [facility] [place], [address] Operative Reporton 5 Operative Report [facility] Medical Records Department [address] [place] [address] Operative Report 04/11/25 1307 MR#: [id number] Acct: [id number] Name: WINIFRED VÁSQUEZ Rep #: [id number] : 1950 74 From: Eder Castano MD PCP: KRYSTIAN Ledesma, MEDICAL OFFICE ADMINISTRATOR-C Status:REG CLI Location: [facility] Operative Report (Standard) Operative Information Date of Procedure: 04/11/25 Pre-Operative Diagnosis: Left breast mass Post-Operative Diagnosis: Left breast mass Surgery/Procedure Performed: Stereotactic guided core needle biopsy of the left breast with placement of clip information technology auditor: No Type of Anesthesia: Local Procedure Start Time: 12:35 Procedure Stop Time: 12:45 Select all DRAINS/GRAFTS/IMPLANTS that apply: None Estimated Blood Loss: 2 Specimen collected: Yes Description of specimen(s) removed: Breast specimen Description of surgery: Patient was placed in the stereotactic table and compression views were obtained. The mass was identified. There tactically views were obtained and the mass was localized in the computer. Next the breast was prepped and draped in usual sterile fashion. The skin was injected with local anesthetic and a small johnny was made with a scalpel. The needle was placed into the incision and fired. Several biopsies were completed and then the specimen was examined under fluoroscopy. It did contain the microcalcifications. A clip was then placed. The needle was removed and a Steri- Strip and bandage were placed over the incision. Patient tolerated the procedure well. Surgical Findings: Left breast mass Complications Complications: No 04/11/25 1309 Cosigner Signature (if applicable): CC: KRYSTIAN MEDICAL OFFICE ADMINISTRATOR-Katerin Agarwal; Dr. Eder Castano MD Signed Normal [facility] Breast Limited Unilateralon 03-25-2025 Breast Limited Unilateral [facility] Imaging Services [address] [place] [address] [id number] Breast Limited Unilateral MR#: [id number] Acct: [id number] Name: WINIFRED VÁSQUEZ Rep #: [id number] : 1950 F 74 From: Lefty spangler MD PCP: KRYSTIAN Ledesma, MEDICAL OFFICE ADMINISTRATOR-C Status: REG CLI Study: Breast Limited Unilateral Date of Exam: Exam# [id number] Ordering Dr: Eder Castano PROCEDURE: BREAST LIMITED UNILATERAL 03/25/2025 REASON FOR EXAM: LEFT BREAST MASS TECHNIQUE: Targeted left breast ultrasound. COMPARISON: Prior ultrasound and mammogram dated March 11, 2025. FINDINGS: Left breast ultrasound was targeted to the upper-outer quadrant of the left breast.. The patient was initially scheduled for biopsy. No definite abnormality is seen for biopsy at the 10 o'clock position of the breast at 3 cm from the nipple. Patient will be rescheduled for stereotactic biopsy on a future date. US/Breast Limited Unilateral IMPRESSION: Impression: The abnormality was not accurately localized for biopsy. The patient will be recalled for stereotactic biopsy. Birads: BI-RADS 0: INCOMPLETE - NEED ADDITIONAL IMAGING EVALUATION. Reading Location: [place] [address] CC: KRYSTIAN Agarwal; Dr. Eder Castano MD Installation And Repair Technician: Signed Normal [facility] Surgery Visit Reporton 03-18 Surgery Visit Report [facility] [address] [place] [address] OFFICE VISIT Date of Service: 03/18/25 MR#: [id number] Acct: [id number] Name: WINIFRED VÁSQUEZ Rep #: [id number] : 1950 Provider: Dr. Eder stallings MD Age/Sex: 74/F Location: [facility] Status: Signed Intake Vital Signs 12/09/24 15:20 03/18/25 12:28 Height 4 ft 11 in 4 ft 11 in Weight: 197 lb 8 oz BMI 39.9 BP 142/81 H Blood Pressure Location Rt brachial Position Sitting Respiration 18 Pulse 52 L Pulse Source Monitor Temp 97.1 F L Temp Source Temporal Pulse Oximetry (%) 97 Oxygen Delivery Method room air Intake Visit Reasons: BIRADS 5 Chief Complaint: BIRADS 5 Left Breast Operations [place] Required: No Accompanied by: Is patient in pain?: No Allergies adhesive tape (plastic tape) Adverse Reaction (Severe, Verified 03/18/25 12:30) Other cephalexin Adverse Reaction (Severe, Verified 03/18/25 12:30) Rash clindamycin Adverse Reaction (Severe, Verified 03/18/25 12:30) Rash Penicillins Adverse Reaction (Severe, Verified 03/18/25 12:30) Rash Sulfa (Sulfonamide Antibiotics) Adverse Reaction (Severe, Verified 03/18/25 12:30) Rash Medications ???Medication ???Instructions ???Recorded ???Confirmed ???Type aspirin 81 mg tablet,delayed 81 mg PO DAILY@0800 health 7 03/18/25 History release maintenance montelukast 10 mg tablet 10 mg PO DAILY allergies 06/11/17 03/18/25 History albuterol sulfate 90 mcg/actuation 2 puff inhalation Q4H PRN PRN So b 08/23/17 03/18/25 Rx aerosol inhaler /Or Wheezing ##1 ascorbate calcium (vitamin C) 500 1 gm PO DAILY Check with primary 02/14/21 03/18/25 History mg tablet doctor fexofenadine 180 mg tablet 180 mg PO DAILY PRN allergy 03/18/25 History (Rubi Allergy) symptoms pravastatin 40 mg tablet 40 mg PO QHS Check with primary 03/18/25 History doctor atenolol 50 mg tablet 50 mg PO DAILY Check with primary 10/04/21 03/18/25 History doctor hydrochlorothiazide 25 mg tablet 25 mg PO DAILY 04/22/22 03/18/25 H istory lisinopril 40 mg tablet 40 mg PO DAILY 04/22/22 03/18/25 H istory omeprazole 20 mg capsule,delayed 20 mg PO DAILY Check with primary 04/22/22 03/18/25 History release doctor biotin 1,000 mcg chewable tablet 1,000 mcg PO DAILY 01/23/23 History propylene glycol (PF) 0.6 % eye 1 drp ophthalmic (eye) TID 3 03/18/25 History drops (Systane Complete PF) oxybutynin chloride 10 mg 10 mg PO DAILY 09/04/23 03/18/25 H istory tablet,extended release 24 hr meloxicam 15 mg tablet 15 mg PO DAILY 09/16/23 03/18/25 H istory metformin 500 mg tablet,extended 500 mg PO DAILY 09/16/23 03/18/25 History release 24 hr apixaban 5 mg tablet (Eliquis) 5 mg PO BID #60 tabs 09/22/2402/25 Rx amlodipine 5 mg tablet 5 mg PO QDAY 09/28/24 03/18/25 His tory calcium 200 mg (as tab PO 09/28/24 03/18/25 History carbonate)-magnesium 100 mg chewable tablet (Riley-Mag) cholecalciferol (vitamin D3) 25 25 mcg PO QDAY 09/28/24 03/18/25 H istory mcg (1,000 unit) tablet cyanocobalamin (vitamin B-12) 1,000 mcg PO QDAY 09/28/24 5 History 1,000 mcg tablet fluticasone 500 mcg-salmeterol 50 1 ea inhalation BID PRN Sob /Or 09/28/24 03/18/25 History mcg/dose blistr powdr for Wheezing inhalation magnesium oxide PO 09/28/24 03/18/25 History Have you fallen in the past year?: No PFSH Medical History (Updated 03/18/25 @ 12:46 by Ny Moreno) Left breast mass Wears glasses Cancer Diabetes Arthritis High cholesterol Non-smoker CPAP (continuous positive airway pressure) dependence Sleep apnea Shortness of breath on exertion History of edema History of stress test Cardiology follow-up encounter History of echocardiogram Preoperative cardiovascular examination Skin cancer (melanoma) ER+ (estrogen receptor positive status) 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 cancer Hypertension Osteopenia due to cancer therapy Bradycardia KRISTY (obstructive sleep apnea) DCIS (ductal carcinoma in situ) Breast cancer, right Nonrheumatic mitral (valve) insufficiency Obstructive sleep apnea Type 2 diabetes mellitus Osteoarthritis Hyperlipidemia Asthma Obesity Essential hypertension Surgical History History of colonoscopy History of esophagogastroduodenoscopy (EGD) History of cataract extraction History of right cataract extraction ( 02/2023) S/P skin biopsy History of lumpectomy of right breast (01/15/19) History of breast biopsy (12/2018) History of ankle surgery History of tubal ligation Hx of cholecystectomy Family History Mot (more content not included)... Normal [facility] Breast Limited Unilateralon 03-11-2025 Breast Limited Unilateral [facility] Imaging Services [address] [place] [address] Breast Limited Unilateral MR#: [id number] Acct: [id number] Name: WINIFRED VÁSQUEZ Rep #: [id number] : 1950 F 74 From: Ruthie Tee MD PCP: Lucita Agarwal [facility], MEDICAL OFFICE ADMINISTRATOR-C Status: REG CLI Study: Breast Limited Unilateral Date of Exam: Exam# [id number] Ordering Dr: Candice Rossi MD EXAM: BREAST LIMITED UNILATERAL; LT BRST UNILAT JOSE ADD ON; DIAG MAMM W/CAD, UNILAT N/A; 03/11/2025 CLINICAL HISTORY: 74-year-old female recalled from screening for findings in the left breast. Personal history of right breast cancer status post lumpectomy in 2019 with radiation. Family history of breast cancer in 2 sisters at age 63 and 72, as well as in 2 maternal aunts and a paternal aunt. TECHNIQUE: Left diagnostic digital breast tomosynthesis with 2D and 3D images. Computer aided detection. Also targeted left breast ultrasound was performed. COMPARISON: Prior exam(s) dated 03/03/2024, 09/01/2024, 02/26/2023, 09/05/2022. FINDINGS: MAMMOGRAM: TISSUE DENSITY: The breast tissue is composed of scattered area of fibroglandular density. Follow-up examination performed for the irregular mass with associated calcifications in the upper central left breast at middle depth visualized on examination of 03/03/2024. On the present examination the iliac and a mass with associated fine pleomorphic calcifications in the upper central left breast at middle depth persist. Follow-up examination performed for the asymmetry in the left breast visualized on examination of 03/03/2024. On the present examination, the asymmetry in the lateral left breast at middle depth does not persist. LEFT BREAST ULTRASOUND: There is an irregular hypoechoic mass with internal vascular flow and posterior acoustic shadowing in the left breast at 10-11 o'clock 3 cm from the nipple measuring 0.9 x 0.7 x 0.7 cm. This correlates with the mammographic finding. Also, there are 2 small cyst in the left breast at 1 o'clock 8 cm from the nipple, as well as a small cyst at 11 o'clock 4 cm from the nipple. There is another 0.5 cm cystic mass in the left breast at 12 o'clock 3 cm from the nipple, which was likely previously biopsied however the clip is not well visualized on this examination. There are 2 architecturally normal-appearing left axillary lymph nodes. US/Breast Limited Unilateral IMPRESSION: 1. Suspicious irregular mass in the left breast at 10-11 o'clock 3 cm from the nipple. Recommend tissue sampling with ultrasound-guided core needle biopsy. Left Breast: BIRADS 5 HIGHLY SUGGESTIVE OF MALIGNANCY. OVERALL FINAL ASSESSMENT: BIRADS 5 HIGHLY SUGGESTIVE OF MALIGNANCY. RECOMMENDATION: Ultrasound-guided core needle biopsy is recommended. A letter with findings and recommendations will be mailed to the patient. Reading Location: [id number] CC: [facility] MEDICAL OFFICE ADMINISTRATORJulio Cesar Agarwal; Dr. Candice Rossi MD Installation And Repair Technician: Signed Normal [facility] Breast imaging reportOrdered By: Ruthie Tee on 03-11-2025 Study report [facility] Imaging Services [address] [place], [place] [address] DIAG MAMM W/CAD, UNILAT MR#: [id number] Acct: [id number] Name: WINIFRED VÁSQUEZ Rep #: [id number] : 1950 F 74 From: Megan Tee MD PCP: Lucita Agarwal [facility], MEDICAL OFFICE ADMINISTRATOR-C Status: REG CLI Study:DIAG MAMM W/CAD, UNILAT Date of Exam: 03/11/25 Exam# [id number] Ordering Dr: Candice Rossi MD EXAM: BREAST LIMITED UNILATERAL; LT BRST UNILAT JOSE ADD ON; DIAG MAMM W/CAD, UNILAT N/A; 03/11/2025 CLINICAL HISTORY: 74-year-old female recalled from screening for findings in the left breast. Personal history of right breast cancer status post lumpectomy in 2019 with radiation. Family history of breast cancer in 2 sistersat age 63 and 72, as well as in 2 maternal aunts and a paternal aunt. TECHNIQUE: Left diagnostic digital breast tomosynthesis with 2D and 3D images. Computer aided detection. Also targeted left breast ultrasound was performed. COMPARISON: Prior exam(s) dated 03/03/2024, 09/01/2024, 02/26/2023, 09/05/2022. FINDINGS: MAMMOGRAM: TISSUE DENSITY: The breast tissue is composed of scattered area of fibroglandular density. Follow-up examination performed for the irregular mass with associated calcifications in the upper central left breast at middle depth visualized on examination of 03/03/2024. On the present examination the iliac and a mass with associated fine pleomorphic calcifications in the upper central left breast at middle depth persist. Follow-up examination performed for the asymmetry in the left breast visualized on examination of 03/03/2024. On the present examination, the asymmetry in the lateral left breast at middle depth does not persist. LEFT BREAST ULTRASOUND: There is an irregular hypoechoic mass with internal vascular flow and posterior acoustic shadowing in the left breast at 10-11 o'clock 3 cm from the nipple measuring 0.9 x 0.7 x 0.7 cm. This correlates withthe mammographic finding. Also, there are 2 small cyst in the left breast at 1 o'clock 8 cm from the nipple, as well as a small cyst at 11 o'clock 4 cm from the nipple. There is another 0.5 cm cystic mass in the left breast at 12 o'clock 3 cm from the nipple, which was likely previously biopsied however the clip is not well visualized on this examination. There are 2 architecturally normal-appearing left axillary lymph nodes. BI/DIAG MAMM W/CAD, UNILAT IMPRESSION: 1. Suspicious irregular mass in the left breast at 10-11 o'clock 3 cm from the nipple. Recommend tissue sampling with ultrasound-guided core needle biopsy. Left Breast: BIRADS 5 HIGHLY SUGGESTIVE OF MALIGNANCY. OVERALL FINAL ASSESSMENT: BIRADS 5 HIGHLY SUGGESTIVE OF MALIGNANCY. RECOMMENDATION: Ultrasound-guided core needle biopsy is recommended. A letter with findings and recommendations will be mailed to the patient. Reading Location: [id number] CC: [facility] MEDICAL OFFICE ADMINISTRATOR-C Lucita Agarwal; Dr. Candice Rossi MD ~ Installation And Repair Technician: Signed [facility] Study report [facility] Imaging Services [address] [place] [address] Lt Brst Unilat Jose Add On MR#: [id number] Acct: [id number] Name: WINIFRED VÁSQUEZ Rep #: [id number] : 1950 F 74 From: Megan Tee MD PCP: Lucita Agarwal [facility], MEDICAL OFFICE ADMINISTRATOR-C Status: [facility] CLI Study:Lt Brst Unilat Jose Add On Date of Exam : 03/11/25 Exam# [id number] Ordering Dr: Candice Rossi MD EXAM: BREAST LIMITED UNILATERAL; LT BRST UNILAT JOSE ADD ON; DIAG MAMM W/CAD, UNILAT N/A; 03/11/2025 CLINICAL HISTORY: 74-year-old female recalled from screening for findings in the left breast. Personal history of right breast cancer status post lumpectomy in 2019 with radiation. Family history of breast cancer in 2 sistersat age 63 and 72, as well as in 2 maternal aunts and a paternal aunt. TECHNIQUE: Left diagnostic digital breast tomosynthesis with 2D and 3D images. Computer aided detection. Also targeted left breast ultrasound was performed. COMPARISON: Prior exam(s) dated 03/03/2024, 09/01/2024, 02/26/2023, 09/05/2022. FINDINGS: MAMMOGRAM: TISSUE DENSITY: The breast tissue is composed of scattered area of fibroglandular density. Follow-up examination performed for the irregular mass with associated calcifications in the upper central left breast at middle depth visualized on examination of 03/03/2024. On the present examination the iliac and a mass with associated fine pleomorphic calcifications in the upper central left breast at middle depth persist. Follow-up examination performed for the asymmetry in the left breast visualized on examination of 03/03/2024. On the present examination, the asymmetry in the lateral left breast at middle depth does not persist. LEFT BREAST ULTRASOUND: There is an irregular hypoechoic mass with internal vascular flow and posterior acoustic shadowing in the left breast at 10-11 o'clock 3 cm from the nipple measuring 0.9 x 0.7 x 0.7 cm. This correlates withthe mammographic finding. Also, there are 2 small cyst in the left breast at 1 o'clock 8 cm from the nipple, as well as a small cyst at 11 o'clock 4 cm from the nipple. There is another 0.5 cm cystic mass in the left breast at 12 o'clock 3 cm from the nipple, which was likely previously biopsied however the clip is not well visualized on this examination. There are 2 architecturally normal-appearing left axillary lymph nodes. BI/Lt Brst Unilat Jose Add On IMPRESSION: 1. Suspicious irregular mass in the left breast at 10-11 o'clock 3 cm from the nipple. Recommend tissue sampling with ultrasound-guided core needle biopsy. Left Breast: BIRADS 5 HIGHLY SUGGESTIVE OF MALIGNANCY. OVERALL FINAL ASSESSMENT: BIRADS 5 HIGHLY SUGGESTIVE OF MALIGNANCY. RECOMMENDATION: Ultrasound-guided core needle biopsy is recommended. A letter with findings and recommendations will be mailed to the patient. Reading Location: [id number] CC: [facility] MEDICAL OFFICE ADMINISTRATOR-C Lucita Agarwal; Dr. Candice Rossi MD ~ Installation And Repair Technician: Signed [facility] DIAG MAMM W/CAD, UNILATon DIAG MAMM W/CAD, UNILAT [facility] Imaging Services [address] [place] [address] DIAG MAMM W/CAD, UNILAT MR#: [id number] Acct: [id number] Name: WINIFRED VÁSQUEZ Rep #: [id number] : 1950 F 74 From: Ruthie Tee MD PCP: Lucita Agarwal, KRYSTIAN, MEDICAL OFFICE ADMINISTRATOR-C Status: REG CLI Study: DIAG MAMM W/CAD, UNILAT Date of Exam: 03/11/25 Exam# [id number] Ordering Dr: Candice Rossi MD EXAM: BREAST LIMITED UNILATERAL; LT BRST UNILAT JOSE ADD ON; DIAG MAMM W/CAD, UNILAT N/A; 03/11/2025 CLINICAL HISTORY: 74-year-old female recalled from screening for findings in the left breast. Personal history of right breast cancer status post lumpectomy in 2019 with radiation. Family history of breast cancer in 2 sisters at age 63 and 72, as well as in 2 maternal aunts and a paternal aunt. TECHNIQUE: Left diagnostic digital breast tomosynthesis with 2D and 3D images. Computer aided detection. Also targeted left breast ultrasound was performed. COMPARISON: Prior exam(s) dated 03/03/2024, 09/01/2024, 02/26/2023, 09/05/2022. FINDINGS: MAMMOGRAM: TISSUE DENSITY: The breast tissue is composed of scattered area of fibroglandular density. Follow-up examination performed for the irregular mass with associated calcifications in the upper central left breast at middle depth visualized on examination of 03/03/2024. On the present examination the iliac and a mass with associated fine pleomorphic calcifications in the upper central left breast at middle depth persist. Follow-up examination performed for the asymmetry in the left breast visualized on examination of 03/03/2024. On the present examination, the asymmetry in the lateral left breast at middle depth does not persist. LEFT BREAST ULTRASOUND: There is an irregular hypoechoic mass with internal vascular flow and posterior acoustic shadowing in the left breast at 10-11 o'clock 3 cm from the nipple measuring 0.9 x 0.7 x 0.7 cm. This correlates with the mammographic finding. Also, there are 2 small cyst in the left breast at 1 o'clock 8 cm from the nipple, as well as a small cyst at 11 o'clock 4 cm from the nipple. There is another 0.5 cm cystic mass in the left breast at 12 o'clock 3 cm from the nipple, which was likely previously biopsied however the clip is not well visualized on this examination. There are 2 architecturally normal-appearing left axillary lymph nodes. BI/DIAG MAMM W/CAD, UNILAT IMPRESSION: 1. Suspicious irregular mass in the left breast at 10-11 o'clock 3 cm from the nipple. Recommend tissue sampling with ultrasound-guided core needle biopsy. Left Breast: BIRADS 5 HIGHLY SUGGESTIVE OF MALIGNANCY. OVERALL FINAL ASSESSMENT: BIRADS 5 HIGHLY SUGGESTIVE OF MALIGNANCY. RECOMMENDATION: Ultrasound-guided core needle biopsy is recommended. A letter with findings and recommendations will be mailed to the patient. Reading Location: [id number] CC: [facility] MEDICAL OFFICE ADMINISTRATOR-C Lucita Agarwal; Dr. Candice Rossi MD Installation And Repair Technician: Signed Normal [facility] Lt Brst Unilat Jose Add Onon 03-11-2025 Lt Brst Unilat Jose Add On [facility] Imaging Services [address] [place] [address] [id number] Lt Brst Unilat Jose Add On MR#: [id number] Acct: [id number] Name: WINIFRED VÁSQUEZ Rep #: [id number] : 1950 F 74 From: Ruthie Tee MD PCP: KRYSTIAN Ledesma, MEDICAL OFFICE ADMINISTRATOR-C Status: REG CLI Study: Lt Brst Unilat Jose Add On Date of Exam: 03/11 Exam# [id number] Ordering Dr: Candice Rossi MD EXAM: BREAST LIMITED UNILATERAL; LT BRST UNILAT JOSE ADD ON; DIAG MAMM W/CAD, UNILAT N/A; 03/11/2025 CLINICAL HISTORY: 74-year-old female recalled from screening for findings in the left breast. Personal history of right breast cancer status post lumpectomy in 2019 with radiation. Family history of breast cancer in 2 sisters at age 63 and 72, as well as in 2 maternal aunts and a paternal aunt. TECHNIQUE: Left diagnostic digital breast tomosynthesis with 2D and 3D images. Computer aided detection. Also targeted left breast ultrasound was performed. COMPARISON: Prior exam(s) dated 03/03/2024, 09/01/2024, 02/26/2023, 09/05/2022. FINDINGS: MAMMOGRAM: TISSUE DENSITY: The breast tissue is composed of scattered area of fibroglandular density. Follow-up examination performed for the irregular mass with associated calcifications in the upper central left breast at middle depth visualized on examination of 03/03/2024. On the present examination the iliac and a mass with associated fine pleomorphic calcifications in the upper central left breast at middle depth persist. Follow-up examination performed for the asymmetry in the left breast visualized on examination of 03/03/2024. On the present examination, the asymmetry in the lateral left breast at middle depth does not persist. LEFT BREAST ULTRASOUND: There is an irregular hypoechoic mass with internal vascular flow and posterior acoustic shadowing in the left breast at 10-11 o'clock 3 cm from the nipple measuring 0.9 x 0.7 x 0.7 cm. This correlates with the mammographic finding. Also, there are 2 small cyst in the left breast at 1 o'clock 8 cm from the nipple, as well as a small cyst at 11 o'clock 4 cm from the nipple. There is another 0.5 cm cystic mass in the left breast at 12 o'clock 3 cm from the nipple, which was likely previously biopsied however the clip is not well visualized on this examination. There are 2 architecturally normal-appearing left axillary lymph nodes. BI/Lt Brst Unilat Jose Add On IMPRESSION: 1. Suspicious irregular mass in the left breast at 10-11 o'clock 3 cm from the nipple. Recommend tissue sampling with ultrasound-guided core needle biopsy. Left Breast: BIRADS 5 HIGHLY SUGGESTIVE OF MALIGNANCY. OVERALL FINAL ASSESSMENT: BIRADS 5 HIGHLY SUGGESTIVE OF MALIGNANCY. RECOMMENDATION: Ultrasound-guided core needle biopsy is recommended. A letter with findings and recommendations will be mailed to the patient. Reading Location: [id number] CC: [facility] MEDICAL OFFICE ADMINISTRATORJulio Cesar Agarwal; Dr. Candice Rossi MD Installation And Repair Technician: Signed Normal [facility] Absolute lymphocyte countOrd ered By: Candice Rossi on 03-10-2025 Lymphocytes Auto (Unsp spec) [#/Vol] 2.87 10*3/uL 0.83-4.[address] [facility] Absolute neutrophil countOrd ered By: Candice Rossi on 03-10-2025 Neutrophils (Bld) [#/Vol] 3.4 10*3/uL 2.0-7.[address] [facility] Anion gap in Serum or Plasma Ordered By: Candice Rossi on 03-10-2025 Anion gap [Moles/Vol] 12 mmol/L 03-10 [facility] Automated lymphocyte count a s percentage of total leukocytesOrdered By: Candice Rossi on 03-10-2025 Lymphocytes/100 WBC Auto (Unsp spec) 41.5 % High 19-[address] [facility] BUN/creatinine ratioOrdered By: [facility] on 03-10-2025 Urea nitrogen/Creatinine [Mass ratio] 27.6 mg/mg High 10-[address] [facility] Basophil percentageOrdered B y: [facility] on 03-10-2025 Basophils/100 WBC (Bld) 0.4 % 0-[address] [facility] Bilirubin, totalOrdered By: Candice Rossi on 03-10-2025 Bilirubin [Mass/Vol] 0.75 mg/dL 0.00-1.30 [facility] CBC W/Diff, Automatedon 02-24 Absolute Lymph 2.87 X10 3/uL Normal 0.83-4.[address] [facility] Comment on above: Performed By: #### L 100.0100, L500.4050 ####[facility] [address] [place], [place], [id number] Absolute Neut 3.4 X10 3/uL Normal 2.0-7.[address] [facility] Comment on above: Performed By: #### L 100.0100, L500.4050 ####[facility] [address] [place], [address] Basophils/100 WBC (Bld) 0.4 % Normal 0-[address] [facility] Comment on above: Performed By: #### L 100.0100, L500.4050 ####[facility] [address] [place], [address] Eosinophils/100 WBC (Bld) 2.0 % Normal 0-[address] [facility] Comment on above: Performed By: #### L 100.0100, L500.4050 ####[facility] [address] [place], [address] Erythrocyte distribution width (RBC) [Ratio] 13.5 % Normal 11.6-14.[address] [facility] Comment on above: Performed By: #### L 100.0100, L500.4050 ####[facility] [address] [place], [address] Hematocrit (Bld) [Volume fraction] 39.1 % Normal 37-[address] [facility] Comment on above: Performed By: #### L 100.0100, L500.4050 ####[facility] [address] [place], [address] Hemoglobin (Bld) [Mass/Vol] 13.1 g/dL Normal 12.0-15.[address] [facility] Comment on above: Performed By: #### L 100.0100, L500.4050 ####[facility] [address] [place], [address] IG% 0.400 Normal 0.0-0.[address] [facility] Comment on above: Result Comment: IG% - Immature Granulocytes (promyelocytes, myelocytes and metamyelocytes) > 1% indicates that a LEFT SHIFT is Present. Performed By: #### L 100.0100, L500.4050 ####[facility] [address] [place], [address] Lymphocytes/100 WBC (Bld) 41.5 % High 19-[address] [facility] Comment on above: Performed By: #### L 100.0100, L500.4050 ####[facility] [address] [place], [address] MCH (RBC) [Entitic mass] 30.4 pg Normal 27.0-32.[address] [facility] Comment on above: Performed By: #### L 100.0100, L500.4050 ####[facility] [address] [place], [address] MCHC (RBC) [Mass/Vol] 33.5 g/dL Normal 32-36 [facility] Comment on above: Performed By: #### L 100.0100, L500.4050 ####[facility] [address] [place], [address] MCV (RBC) [Entitic vol] 90.7 fL Normal 81-[address] [facility] Comment on above: Performed By: #### L 100.0100, L500.4050 ####[facility] [address] [place], [address] Monocytes/100 WBC (Bld) 6.8 % Normal 0-[address] [facility] Comment on above: Performed By: #### L 100.0100, L500.4050 ####[facility] [address] [place], [address] Neutrophils/100 WBC (Bld) 48.9 % Normal 47-[address] [facility] Comment on above: Performed By: #### L 100.0100, L500.4050 ####[facility] [address] [place], [address] Nucleated RBC (Bld) [#/Vol] 0 10*3/uL Normal 0-[address] [facility] Comment on above: Performed By: #### L 100.0100, L500.4050 ####[facility] [address] [place], [address] Platelet mean volume (Bld) [Entitic vol] 10.7 fL Normal 6.2-12.[address] [facility] Comment on above: Performed By: #### L 100.0100, L500.4050 ####[facility] [address] [place], [address] Platelets (Bld) [#/Vol] 193 10*3/uL Normal 150-[address] [facility] Comment on above: Performed By: #### L 100.0100, L500.4050 ####[facility] [address] [place], [address] RBC (Bld) [#/Vol] 4.31 10*6/uL Normal 4.2-5.4 [facility] Comment on above: Performed By: #### L 100.0100, L500.4050 ####[facility] [address] [place], [address] RDW SD 45.5 fl High 35.1-43.[address] [facility] Comment on above: Performed By: #### L 100.0100, L500.4050 ####[facility] [address] [place], [address] WBC (Bld) [#/Vol] 6.9 10*3/uL Normal 4.4-11.0 [facility] Comment on above: Performed By: #### L 100.0100, L500.4050 ####[facility] [address] [place], [address] Carbon dioxide, total [Moles /volume] in Central venous bloodOrdered By: Candice Rossi on 03-10-2025 CO2 [Moles/Vol] 24.7 mmol/L 21.0-32.[address] [facility] Chloride assayOrdered By: Maile Rossi on 03-10-2025 Chloride [Moles/Vol] 105 mmol/L 98-108 [facility] Comprehensive Metabolic Prof ilon 03-10-2025 Albumin [Mass/Vol] 4.0 g/dL Normal 3.4-4.8 [facility] Comment on above: Performed By: #### L 100.0100, L500.4050 ####[facility] [address] [place], [address] Albumin/Globulin [Mass ratio] 1.3 {ratio} Normal 0.9-2.[address] [facility] Comment on above: Performed By: #### L 100.0100, L500.4050 ####[facility] [address] [place], [address] ALK PHOS 75 U/L Normal 35-[address] [facility] Comment on above: Performed By: #### L 100.0100, L500.4050 ####[facility] [address] [place], [address] ALT [Catalytic activity/Vol] 9 U/L Normal <=[address] [facility] Comment on above: Performed By: #### L 100.0100, L500.4050 ####[facility] [address] [place], [address] AST [Catalytic activity/Vol] 20 U/L Normal <=[address] [facility] Comment on above: Performed By: #### L 100.0100, L500.4050 ####[facility] [address] [place], [address] Bilirubin [Mass/Vol] 0.75 mg/dL Normal 0.00-1.30 [facility] Comment on above: Performed By: #### L 100.0100, L500.4050 ####[facility] [address] [place], [address] BUN/CRE 27.6 RATIO High 10-[address] [facility] Comment on above: Performed By: #### L 100.0100, L500.4050 ####[facility] [address] [place], [address] Calcium [Mass/Vol] 9.6 mg/dL Normal 7.6-11.0 [facility] Comment on above: Performed By: #### L 100.0100, L500.4050 ####[facility] [address] [place], [address] Chloride [Moles/Vol] 105 mmol/L Normal 98-108 [facility] Comment on above: Performed By: #### L 100.0100, L500.4050 ####[facility] [address] [place], [address] CO2 [Moles/Vol] 24.7 mmol/L Normal 21.0-32.[address] [facility] Comment on above: Performed By: #### L 100.0100, L500.4050 ####[facility] [address] [place], [address] Creatinine [Mass/Vol] 0.63 mg/dL Low 0.70-1.20 [facility] Comment on above: Performed By: #### L 100.0100, L500.4050 ####[facility] [address] [place], [address] ECRCL 65.95 ml/min Normal 50-[address] [facility] Comment on above: Performed By: #### L 100.0100, L500.4050 ####[facility] [address] [place], [address] GAP 12 Normal 5-[address] [facility] Comment on above: Performed By: #### L 100.0100, L500.4050 ####[facility] [address] [place], [address] GFR/1.73 sq M.predicted among non-blacks MDRD (S/P/Bld) [Vol rate/Area] 92 mL/min/{1.73_m2} Normal >[address] [facility] Comment on above: Result Comment: mL/m in/1.73m2 CKD-EPI Creatinine Equation (2020) Performed By: #### L 100.0100, L500.4050 ####[facility] [address] [place], [address] Globulin (S) [Mass/Vol] 3.1 g/dL Normal 2.2-4.[address] [facility] Comment on above: Performed By: #### L 100.0100, L500.4050 ####[facility] [address] [place], [address] Glucose [Mass/Vol] 103 mg/dL High 70-99 [facility] Comment on above: Performed By: #### L 100.0100, L500.4050 ####[facility] [address] [place], [address] Potassium [Moles/Vol] 4.2 mmol/L Normal 3.3-5.1 [facility] Comment on above: Performed By: #### L 100.0100, L500.4050 ####[facility] [address] [place], [address] Sodium [Moles/Vol] 141 mmol/L Normal 133-145 [facility] Comment on above: Performed By: #### L 100.0100, L500.4050 ####[facility] [address] [place], [address] T PROT 7.1 g/dL Normal 5.9-8.[address] [facility] Comment on above: Performed By: #### L 100.0100, L500.4050 ####[facility] [address] [place], [place], [address] Urea nitrogen [Mass/Vol] 18 mg/dL Normal 4-[address] [facility] Comment on above: Performed By: #### L 100.0100, L500.4050 ####[facility] [address] [place], [place], [address] Eosinophil percentageOrdered By: Candice Rossi on 03-10-2025 Eosinophils/100 WBC (Bld) 2.0 % 0-[address] [facility] Erythrocyte distribution wid th ratioOrdered By: [facility] [place] on 03-10-2025 Erythrocyte distribution width (RBC) [Ratio] 13.5 % 11.6-14.[address] [facility] Erythrocyte distribution wid th standard deviationOrdered By: [facility] [place] on 03-10-2025 Erythrocyte distribution width (RBC) [Ratio] 45.5 fl High 35.1-43.[address] [facility] Glomerular filtration rate ( GFR) estimation/1.73 sq m using serum, plasma, or whole bOrdered By: [facility] on 03-10-2025 GFR/1.73 sq M.predicted among non-blacks MDRD (S/P/Bld) [Vol rate/Area] 92 mL/min/{1.73_m2} >[address] [facility] Comment on above: mL/min/1.73m2 CKD-EP I Creatinine Equation (2020) Hematocrit Auto (Bld) [Volum e fraction]Ordered By: [facility] on 03-10-2025 Hematocrit (Bld) [Volume fraction] 39.1 % 37-[address] [facility] Hemoglobin measurementOrdere d By: [facility] on 03-10-2025 Hemoglobin (Bld) [Mass/Vol] 13.1 g/dL 12.0-15.[address] [facility] Immature granulocytes/100 WB C Auto (Bld)Ordered By: Candice Rossi on 03-10-2025 Immature granulocytes/100 WBC (Bld) 0.400 % 0.0-0.[address] [facility] Comment on above: IG% - Immature Granu locytes (promyelocytes, myelocytes and metamyelocytes) > 1% indicates that a LEFT SHIFT is Present. Laboratory - Chemistry and C hemistry - challengeOrdered By: Candice Rossi on 03-10-2025 AST [Catalytic activity/Vol] 20 U/L <[address] [facility] MCV (mean corpuscular volume ) determinationOrdered By: Candice Rossi on 03-10-2025 MCV (RBC) [Entitic vol] 90.7 fL 81-[address] [facility] Mean corpuscular hemoglobin (MCH) determinationOrdered By: Candice Rossi on 03-10-2025 MCH (RBC) [Entitic mass] 30.4 pg 27.0-32.[address] [facility] Mean corpuscular hemoglobin concentration (MCHC) determinationOrdered By: Candice Rossi on 03-10-2025 MCHC (RBC) [Mass/Vol] 33.5 g/dL 32-36 [facility] Mean platelet volume determi nationOrdered By: Candice Rossi on 03-10-2025 Platelet mean volume (Bld) [Entitic vol] 10.7 fL 6.2-12.[address] [facility] Monocyte percentageOrdered B y: Candice Rossi on 03-10-2025 Monocytes/100 WBC (Bld) 6.8 % 0-[address] [facility] Neutrophil percentageOrdered By: Candice Rossi on 03-10-2025 Neutrophils/100 WBC (Bld) 48.9 % 47-[address] [facility] Nucleated red blood cell per centageOrdered By: Candice Rossi on 03-10-2025 Nucleated RBC/100 WBC (Bld) [Ratio] 0 % 0-[address] [facility] Platelet countOrdered By: Maile Rossi on 03-10-2025 Platelets (Bld) [#/Vol] 193 10*3/uL 150-[address] [facility] Potassium measurement (mass/ volume)Ordered By: Candice Rossi on 03-10-2025 Potassium (Unsp spec) [Mass/Vol] 4.2 mmol/L 3.3-5.[address] [facility] RBC Auto (Bld) [#/Vol]Ordere d By: Candice Rossi on 03-10-2025 RBC (Bld) [#/Vol] 4.31 10*6/uL 4.2-5.4 [facility] Serum creatinine measurement (mass/volume)Ordered By: Candice Rossi on 03-10-2025 Creatinine [Mass/Vol] 0.63 mg/dL Low 0.70-1.20 [facility] Serum globulin measurementOr dered By: Candice Rossi on 03-10-2025 Globulin (S) [Mass/Vol] 3.1 g/dL 2.2-4.[address] [facility] Serum glucose measurement (m ass/volume)Ordered By: Candice Rossi on 03-10-2025 Glucose [Mass/Vol] 103 mg/dL High 70-99 [facility] Serum or plasma alanine campbell otransferase (ALT) measurementOrdered By: Candice Rossi on 03-10-2025 ALT [Catalytic activity/Vol] 9 U/L <[address] [facility] Serum or plasma albumin jackie urement (mass/volume)Ordered By: Candice Rossi on 03-10-2025 Albumin [Mass/Vol] 4.0 g/dL 3.4-4.8 [facility] Serum or plasma albumin/glob ulin mass ratioOrdered By: Candice Rossi on 03-10-2025 Albumin/Globulin [Mass ratio] 1.3 {ratio} 0.9-2.[address] [facility] Serum or plasma alkaline clemente sphatase measurementOrdered By: Candice Rossi on 03-10-2025 ALP [Catalytic activity/Vol] 75 U/L 35-[address] [facility] Serum or plasma calcium jackie urement (mass/volume)Ordered By: Candice Rossi on 03-10-2025 Calcium [Mass/Vol] 9.6 mg/dL 7.6-11.0 [facility] Serum or plasma urea nitroge n measurement (mass/volume)Ordered By: Candice Rossi on 03-10-2025 Urea nitrogen [Mass/Vol] 18 mg/dL 4-[address] [facility] Sodium levelOrdered By: Anderw Rossi on 03-10-2025 Sodium [Moles/Vol] 141 mmol/L 133-145 [facility] Total proteinOrdered By: Bandar Rossi on 03-10-2025 Protein [Mass/Vol] 7.1 g/dL 5.9-8.4 [facility] White blood cell (WBC) count Ordered By: Candice Rossi on 03-10-2025 WBC (Bld) [#/Vol] 6.9 10*3/uL 4.4-11.0 [facility] Breast imaging reportOrdered By: Ruthie Tee on 03-04-2025 Study report [facility] Imaging Services [address] [place] [address] SCRN MAMM (CAD)W/JOSE BILAT MR#: [id number] Acct: [id number] Name: WINIFRED VÁSQUEZ Rep #: [id number] : 1950 F 74 From: Megan Tee MD PCP: KRYSTIAN Ledesma, MEDICAL OFFICE ADMINISTRATOR-C Status: REG CLI Study:SCRN MAMM (CAD)W/JOSE BILAT Date of Exa m: 03/04/25 Exam# [id number] Ordering Dr: Candice Rossi MD EXAM: SCRN MAMM (CAD)W/JOSE BILAT 03/04/2025 CLINICAL HISTORY: F, Age 74 y/o , SCREENING TECHNIQUE: Bilateral screening digital breast tomosynthesis with 2D and 3D images. Computeraided detection. COMPARISON: Prior exam(s) dated 03/03/2024, 02/26/2023, 09/05/2022. FINDINGS: TISSUE DENSITY: The breast tissue is composed of scattered area of fibroglandular density. Bilateral Breast Mammographic Findings: There is an irregular mass with associated calcifications in the upper central left breast at middle depth. There is an asymmetry in the lateral left breast at middle depth visualized on the CC view. No significant masses, calcifications or other abnormalities are identified right breast. BI/SCRN MAMM (CAD)W/JOSE BILAT IMPRESSION: 1. The irregular mass with associated calcifications in the upper central left breast at middle depth requires further evaluation. Recommend diagnostic ultrasound of the left breast. 2. The asymmetry in the lateral left breast at middle depth visualized on the CC view requires further evaluation. Recommend diagnostic mammogram of the left breast and ultrasound on the day of diagnostic. Right Breast: BIRADS 1 NEGATIVE. Left Breast: BIRADS 0 Incomplete: Need additional imaging evaluation and/or prior mammograms for comparison.. OVERALL FINAL ASSESSMENT: BIRADS 0 Incomplete: Need additional imaging evaluation and/or prior mammograms for comparison.. RECOMMENDATION: Additional projections. A letter with findings and recommendations will be mailed to the patient. Reading Location: [facility] CC: [facility] MEDICAL OFFICE ADMINISTRATOR-C Lucita Agarwal; Dr. Candice Rossi MD ~ Installation And Repair Technician: Signed [facility] SCRN MAMM (CAD)W/JOSE BILATo n 03-04-2025 SCRN MAMM (CAD)W/JOSE BILAT [facility] Imaging Services [address] [place] [address] SCRN MAMM (CAD)W/JOSE BILAT MR#: [id number] Acct: [id number] Name: WINIFRED VÁSQUEZ Rep #: [id number] : 1950 F 74 From: Ruthie Tee MD PCP: Lucita Agarwal, [facility], MEDICAL OFFICE ADMINISTRATOR-C Status: REG CLI Study: SCRN MAMM (CAD)W/JOSE BILAT Date of Exam: 07/21 Exam# [id number] Ordering Dr: Candice Rossi MD EXAM: SCRN MAMM (CAD)W/JOSE BILAT 03/04/2025 CLINICAL HISTORY: F, Age 74 y/o , SCREENING TECHNIQUE: Bilateral screening digital breast tomosynthesis with 2D and 3D images. Computer aided detection. COMPARISON: Prior exam(s) dated 03/03/2024, 02/26/2023, 09/05/2022. FINDINGS: TISSUE DENSITY: The breast tissue is composed of scattered area of fibroglandular density. Bilateral Breast Mammographic Findings: There is an irregular mass with associated calcifications in the upper central left breast at middle depth. There is an asymmetry in the lateral left breast at middle depth visualized on the CC view. No significant masses, calcifications or other abnormalities are identified right breast. BI/SCRN MAMM (CAD)W/JOSE BILAT IMPRESSION: 1. The irregular mass with associated calcifications in the upper central left breast at middle depth requires further evaluation. Recommend diagnostic ultrasound of the left breast. 2. The asymmetry in the lateral left breast at middle depth visualized on the CC view requires further evaluation. Recommend diagnostic mammogram of the left breast and ultrasound on the day of diagnostic. Right Breast: BIRADS 1 NEGATIVE. Left Breast: BIRADS 0 Incomplete: Need additional imaging evaluation and/or prior mammograms for comparison.. OVERALL FINAL ASSESSMENT: BIRADS 0 Incomplete: Need additional imaging evaluation and/or prior mammograms for comparison.. RECOMMENDATION: Additional projections. A letter with findings and recommendations will be mailed to the patient. Reading Location: [facility] CC: [facility] OSMAN Agarwal; Dr. Candice Rossi MD Installation And Repair Technician: Signed Normal [facility] Absolute lymphocyte countOrd ered By: [facility] Be[facility] on 02-10-2025 Lymphocytes Auto (Unsp spec) [#/Vol] 3.67 10*3/uL 0.83-4.[address] [facility] Absolute neutrophil countOrd ered By: bulun Beam on 02-10-2025 Neutrophils (Bld) [#/Vol] 7.9 10*3/uL High 2.0-7.[address] [facility] Anion gap in Serum or Plasma Ordered By: [facility] Be[facility] on 02-10-2025 Anion gap [Moles/Vol] 14 mmol/L 5-15 [facility] Automated lymphocyte count a s percentage of total leukocytesOrdered By: bulun Beam on 02-10-2025 Lymphocytes/100 WBC Auto (Unsp spec) 29.1 % 19-[address] [facility] BUN/creatinine ratioOrdered By: [facility] Be[facility] on 02-10-2025 Urea nitrogen/Creatinine [Mass ratio] 26.1 mg/mg High 10-[address] [facility] Basophil percentageOrdered B y: Zebulun Beam on 02-10-2025 Basophils/100 WBC (Bld) 0.3 % 0-[address] [facility] Bilirubin, totalOrdered By: bulun Beam on 02-10-2025 Bilirubin [Mass/Vol] 1.04 mg/dL 0.00-1.30 [facility] CBC W/Diff, Automatedon 01-255 Absolute Lymph 3.67 X10 3/uL Normal 0.83-4.[address] [facility] Comment on above: Performed By: #### L 100.0100, L503.7505, L500.4050 #### [facility] [address] [place], [address] Absolute Neut 7.9 X10 3/uL High 2.0-7.[address] [facility] Comment on above: Performed By: #### L 100.0100, L503.7505, L500.4050 #### [facility] [address] [place], [address] Basophils/100 WBC (Bld) 0.3 % Normal 0-[address] [facility] Comment on above: Performed By: #### L 100.0100, L503.7505, L500.4050 #### [facility] [address] [place], [address] Eosinophils/100 WBC (Bld) 0.6 % Normal 0-[address] [facility] Comment on above: Performed By: #### L 100.0100, L503.7505, L500.4050 #### [facility] [address] [place], [address] Erythrocyte distribution width (RBC) [Ratio] 12.5 % Normal 11.6-14.[address] [facility] Comment on above: Performed By: #### L 100.0100, L503.7505, L500.4050 #### [facility] [address] [place], [address] Hematocrit (Bld) [Volume fraction] 45.3 % Normal 37-[address] [facility] Comment on above: Performed By: #### L 100.0100, L503.7505, L500.4050 #### [facility] [address] [place], [address] Hemoglobin (Bld) [Mass/Vol] 15.4 g/dL High 12.0-15.[address] [facility] Comment on above: Performed By: #### L 100.0100, L503.7505, L500.4050 #### [facility] [address] [place], [address] IG% 1.300 High 0.0-0.[address] [facility] Comment on above: Result Comment: IG% - Immature Granulocytes (promyelocytes, myelocytes and metamyelocytes) > 1% indicates that a LEFT SHIFT is Present. Performed By: #### L 100.0100, L503.7505, L500.4050 #### [facility] [address] [place], [address] Lymphocytes/100 WBC (Bld) 29.1 % Normal 19-[address] [facility] Comment on above: Performed By: #### L 100.0100, L503.7505, L500.4050 #### [facility] [address] [place], [address] MCH (RBC) [Entitic mass] 30.4 pg Normal 27.0-32.[address] [facility] Comment on above: Performed By: #### L 100.0100, L503.7505, L500.4050 #### [facility] [address] [place], [address] MCHC (RBC) [Mass/Vol] 34.0 g/dL Normal 32-36 [facility] Comment on above: Performed By: #### L 100.0100, L503.7505, L500.4050 #### [facility] [address] [place], [address] MCV (RBC) [Entitic vol] 89.3 fL Normal 81-[address] [facility] Comment on above: Performed By: #### L 100.0100, L503.7505, L500.4050 #### [facility] [address] [place], [address] Monocytes/100 WBC (Bld) 6.1 % Normal 0-[address] [facility] Comment on above: Performed By: #### L 100.0100, L503.7505, L500.4050 #### [facility] [address] [place], [address] Neutrophils/100 WBC (Bld) 62.6 % Normal 47-[address] [facility] Comment on above: Performed By: #### L 100.0100, L503.7505, L500.4050 #### [facility] [address] [place], [address] Nucleated RBC (Bld) [#/Vol] 0 10*3/uL Normal 0-[address] [facility] Comment on above: Performed By: #### L 100.0100, L503.7505, L500.4050 #### [facility] [address] [place], [address] Platelet mean volume (Bld) [Entitic vol] 10.0 fL Normal 6.2-12.[address] [facility] Comment on above: Performed By: #### L 100.0100, L503.7505, L500.4050 #### [facility] [address] [place], [address] Platelets (Bld) [#/Vol] 370 10*3/uL Normal 150-[address] [facility] Comment on above: Performed By: #### L 100.0100, L503.7505, L500.4050 #### [facility] [address] [place], [address] RBC (Bld) [#/Vol] 5.07 10*6/uL Normal 4.2-5.4 [facility] Comment on above: Performed By: #### L 100.0100, L503.7505, L500.4050 #### [facility] [address] [place], [address] RDW SD 40.7 fl Normal 35.1-43.[address] [facility] Comment on above: Performed By: #### L 100.0100, L503.7505, L500.4050 #### [facility] [address] [place], [address] WBC (Bld) [#/Vol] 12.6 10*3/uL High 4.4-11.0 [facility] Comment on above: Performed By: #### L 100.0100, L503.7505, L500.4050 #### [facility] [address] [place], [address] Carbon dioxide, total [Moles /volume] in Central venous bloodOrdered By: Eloy Bolanos on 02-10-2025 CO2 [Moles/Vol] 24.0 mmol/L 21.0-32.[address] [facility] Chloride assayOrdered By: Hao Bolanos on 02-10-2025 Chloride [Moles/Vol] 99 mmol/L 98-108 [facility] Comprehensive Metabolic Prof ilon 02-10-2025 Albumin [Mass/Vol] 3.9 g/dL Normal 3.4-4.8 [facility] Comment on above: Performed By: #### L 100.0100, L503.7505, L500.4050 #### [facility] [address] [place], [address] Albumin/Globulin [Mass ratio] 1.2 {ratio} Normal 0.9-2.[address] [facility] Comment on above: Performed By: #### L 100.0100, L503.7505, L500.4050 #### [facility] [address] [place], [address] ALK PHOS 67 U/L Normal 35-[address] [facility] Comment on above: Performed By: #### L 100.0100, L503.7505, L500.4050 #### [facility] [address] [place], [address] ALT [Catalytic activity/Vol] 21 U/L Normal <=[address] [facility] Comment on above: Performed By: #### L 100.0100, L503.7505, L500.4050 #### [facility] [address] [place], [address] AST [Catalytic activity/Vol] 26 U/L Normal <=[address] [facility] Comment on above: Performed By: #### L 100.0100, L503.7505, L500.4050 #### [facility] [address] [place], [address] Bilirubin [Mass/Vol] 1.04 mg/dL Normal 0.00-1.30 [facility] Comment on above: Performed By: #### L 100.0100, L503.7505, L500.4050 #### [facility] [address] [place], [address] BUN/CRE 26.1 RATIO High 10-[address] [facility] Comment on above: Performed By: #### L 100.0100, L503.7505, L500.4050 #### [facility] [address] [place], [address] Calcium [Mass/Vol] 9.9 mg/dL Normal 7.6-11.0 [facility] Comment on above: Performed By: #### L 100.0100, L503.7505, L500.4050 #### [facility] [address] [place], [address] Chloride [Moles/Vol] 99 mmol/L Normal 98-108 [facility] Comment on above: Performed By: #### L 100.0100, L503.7505, L500.4050 #### [facility] [address] [place], [address] CO2 [Moles/Vol] 24.0 mmol/L Normal 21.0-32.[address] [facility] Comment on above: Performed By: #### L 100.0100, L503.7505, L500.4050 #### [facility] [address] [place], [address] Creatinine [Mass/Vol] 1.08 mg/dL Normal 0.70-1.20 [facility] Comment on above: Performed By: #### L 100.0100, L503.7505, L500.4050 #### [facility] [address] [place], [address] GAP 14 Normal 5-[address] [facility] Comment on above: Performed By: #### L 100.0100, L503.7505, L500.4050 #### [facility] [address] [place], [address] GFR/1.73 sq M.predicted among non-blacks MDRD (S/P/Bld) [Vol rate/Area] 54 mL/min/{1.73_m2} Low >[address] [facility] Comment on above: Result Comment: mL/m in/1.73m2 CKD-EPI Creatinine Equation (2020) Performed By: #### L 100.0100, L503.7505, L500.4050 #### [facility] [address] [place], [address] Globulin (S) [Mass/Vol] 3.2 g/dL Normal 2.2-4.[address] [facility] Comment on above: Performed By: #### L 100.0100, L503.7505, L500.4050 #### [facility] [address] [place], [address] Glucose [Mass/Vol] 104 mg/dL High 70-99 [facility] Comment on above: Performed By: #### L 100.0100, L503.7505, L500.4050 #### [facility] [address] [place], [address] Potassium [Moles/Vol] 3.8 mmol/L Normal 3.3-5.1 [facility] Comment on above: Performed By: #### L 100.0100, L503.7505, L500.4050 #### [facility] [address] [place], [address] Sodium [Moles/Vol] 137 mmol/L Normal 133-145 [facility] Comment on above: Performed By: #### L 100.0100, L503.7505, L500.4050 #### [facility] [address] [place], [address] T PROT 7.1 g/dL Normal 5.9-8.[address] [facility] Comment on above: Performed By: #### L 100.0100, L503.7505, L500.4050 #### [facility] [address] [place], [address] Urea nitrogen [Mass/Vol] 28 mg/dL High 4-[address] [facility] Comment on above: Performed By: #### L 100.0100, L503.7505, L500.4050 #### [facility] [address] [place], [address] Eosinophil percentageOrdered By: Zebulun Beam on 02-10-2025 Eosinophils/100 WBC (Bld) 0.6 % 0-[address] [facility] Erythrocyte distribution wid th (RBC) [Ratio]Ordered By: Zebulun Beam on 02-10-2025 Erythrocyte distribution width (RBC) [Entitic vol] 40.7 fL 35.1-43.[address] [facility] Erythrocyte distribution wid th ratioOrdered By: Zebulun Beam on 02-10-2025 Erythrocyte distribution width (RBC) [Ratio] 12.5 % 11.6-14.[address] [facility] Erythrocyte distribution wid th standard deviationOrdered By: Zebulun Beam on 02-10-2025 Erythrocyte distribution width (RBC) [Ratio] 40.7 fl 35.1-43.[address] [facility] GFR/1.73 sq M.predicted ronn g non-blacks MDRD (S/P/Bld) [Vol rate/Area]Ordered By: Zebulun Beam on 02-10-2025 Estimated GFR (MDRD) Non-Af Amer 54 Low >[address] [facility] Comment on above: mL/min/1.73m2 CKD-EP I Creatinine Equation (2020) Glomerular filtration rate ( GFR) estimation/1.73 sq m using serum, plasma, or whole bOrdered By: Zebulun Beam on 02-10-2025 GFR/1.73 sq M.predicted among non-blacks MDRD (S/P/Bld) [Vol rate/Area] 54 mL/min/{1.73_m2} Low >[address] [facility] Comment on above: mL/min/1.73m2 CKD-EP I Creatinine Equation (2020) Hematocrit Auto (Bld) [Volum e fraction]Ordered By: Shrutin Beam on 02-10-2025 Hematocrit (Bld) [Volume fraction] 45.3 % 37-[address] [facility] Hemoglobin measurementOrdere d By: Shrutin Beam on 02-10-2025 Hemoglobin (Bld) [Mass/Vol] 15.4 g/dL High 12.0-15.[address] [facility] Immature granulocytes/100 WB C Auto (Bld)Ordered By: Iselalun Beam on 02-10-2025 Immature granulocytes/100 WBC (Bld) 1.300 % High 0.0-0.[address] [facility] Comment on above: IG% - Immature Granu locytes (promyelocytes, myelocytes and metamyelocytes) > 1% indicates that a LEFT SHIFT is Present. L503.7505on 02-10-2025 Natriuretic peptide B (Bld) [Mass/Vol] 877 pg/mL Normal <=[address] [facility] Comment on above: Result Comment: Hear t Failure Unlikely: < 300 pg/mL Heart Failure Likely < 50 Years: > 450 pg/mL 50-75 Years: > 900 pg/mL >75 Years: > 1800 pg/mL Performed By: #### L 100.0100, L503.7505, L500.4050 #### [facility] [address] [place], [address] Laboratory - Chemistry and C hemistry - challengeOrdered By: Eloy Bolanos on 02-10-2025 AST [Catalytic activity/Vol] 26 U/L <[address] [facility] Lymphocytes Auto (Unsp spec) [#/Vol]Ordered By: [facility] on 02-10-2025 Lymphocytes (Bld) [#/Vol] 3.67 10*3/uL 0.83-4.[address] [facility] Lymphocytes/100 WBC Auto (Un sp spec)Ordered By: [facility] on 02-10-2025 Lymphocytes/100 WBC (Bld) 29.1 % 19-[address] [facility] MCV (mean corpuscular volume ) determinationOrdered By: [facility] on 02-10-2025 MCV (RBC) [Entitic vol] 89.3 fL 81-[address] [facility] Mean corpuscular hemoglobin (MCH) determinationOrdered By: [facility] on 02-10-2025 MCH (RBC) [Entitic mass] 30.4 pg 27.0-32.[address] [facility] Mean corpuscular hemoglobin concentration (MCHC) determinationOrdered By: [facility] on 02-10-2025 MCHC (RBC) [Mass/Vol] 34.0 g/dL 32-36 [facility] Mean platelet volume determi nationOrdered By: [facility] on 02-10-2025 Platelet mean volume (Bld) [Entitic vol] 10.0 fL 6.2-12.[address] [facility] Monocyte percentageOrdered B y: [facility] on 02-10-2025 Monocytes/100 WBC (Bld) 6.1 % 0-[address] [facility] Natriuretic peptide.B prohor celine N-Terminal [Mass/Vol]Ordered By: cristelaanita Bolanos on 02-10-2025 Natriuretic peptide B (Bld) [Mass/Vol] 877 pg/mL <[address] [facility] Comment on above: Heart Failure Unlike ly: < 300 pg/mLHeart Failure Likely< 50 Years: > 450 pg/mL50-75 Years: > 900 pg/mL>75 Years: > 1800 pg/mL Natriuretic peptide.B prohor celine N-Terminal [Mass/volume] in Serum or PlasmaOrdered By: Eloy Bolanos on 02-10-2025 Natriuretic peptide.B prohormone N-Terminal [Mass/Vol] 877 pg/mL <[address] [facility] Comment on above: Heart Failure Unlike ly: < 300 pg/mLHeart Failure Likely< 50 Years: > 450 pg/mL50-75 Years: > 900 pg/mL>75 Years: > 1800 pg/mL Neutrophil percentageOrdered By: Eloy Bolanos on 02-10-2025 Neutrophils/100 WBC (Bld) 62.6 % 47-[address] [facility] Nucleated red blood cell per centageOrdered By: Eloy Bolanos on 02-10-2025 Nucleated RBC/100 WBC (Bld) [Ratio] 0 % 0-[address] [facility] Platelet countOrdered By: Hao Bolanos on 02-10-2025 Platelets (Bld) [#/Vol] 370 10*3/uL 150-[address] [facility] Potassium (Unsp spec) [Mass/ Vol]Ordered By: Eloy Bolanos on 02-10-2025 Potassium [Moles/Vol] 3.8 mmol/L 3.3-5.1 [facility] Potassium measurement (mass/ volume)Ordered By: Eloy Bolanos on 02-10-2025 Potassium (Unsp spec) [Mass/Vol] 3.8 mmol/L 3.3-5.[address] [facility] RBC Auto (Bld) [#/Vol]Ordere d By: Eloy Bolanos on 02-10-2025 RBC (Bld) [#/Vol] 5.07 10*6/uL 4.2-5.4 [facility] Serum creatinine measurement (mass/volume)Ordered By: Eloy Bolanos on 02-10-2025 Creatinine [Mass/Vol] 1.08 mg/dL 0.70-1.20 [facility] Serum globulin measurementOr dered By: Eloy Bolanos on 02-10-2025 Globulin (S) [Mass/Vol] 3.2 g/dL 2.2-4.[address] [facility] Serum glucose measurement (m ass/volume)Ordered By: Eloy Beam on 02-10-2025 Glucose [Mass/Vol] 104 mg/dL High 70-99 [facility] Serum or plasma alanine campbell otransferase (ALT) measurementOrdered By: Iselalun Beam on 02-10-2025 ALT [Catalytic activity/Vol] 21 U/L <[address] [facility] Serum or plasma albumin jackie urement (mass/volume)Ordered By: Eloy Beam on 02-10-2025 Albumin [Mass/Vol] 3.9 g/dL 3.4-4.8 [facility] Serum or plasma albumin/glob ulin mass ratioOrdered By: Eloy Bolanos on 02-10-2025 Albumin/Globulin [Mass ratio] 1.2 {ratio} 0.9-2.[address] [facility] Serum or plasma alkaline clemente sphatase measurementOrdered By: Iselaanita Beam on 02-10-2025 ALP [Catalytic activity/Vol] 67 U/L 35-[address] [facility] Serum or plasma calcium jackie urement (mass/volume)Ordered By: Eloy Beam on 02-10-2025 Calcium [Mass/Vol] 9.9 mg/dL 7.6-11.0 [facility] Serum or plasma urea nitroge n measurement (mass/volume)Ordered By: Eloy Beam on 02-10-2025 Urea nitrogen [Mass/Vol] 28 mg/dL High 4-[address] [facility] Sodium levelOrdered By: Isela Bolanos on 02-10-2025 Sodium [Moles/Vol] 137 mmol/L 133-145 [facility] Total proteinOrdered By: Shadi Bolanos on 02-10-2025 Protein [Mass/Vol] 7.1 g/dL 5.9-8.4 [facility] White blood cell (WBC) count Ordered By: Eloy Bolanos on 02-10-2025 WBC (Bld) [#/Vol] 12.6 10*3/uL High 4.4-11.0 [facility] Chest PA and Lateralon 02-03 Chest PA and Lateral [facility] [address] [place] [address] Chest PA and Lateral MR#: [id number] Acct: [id number] Name: WINIFRED VÁSQUEZ Rep #: [id number] : 1950 F 74 From: Soto Vázquez MD PCP: Lucita Agarwal, [facility], MEDICAL OFFICE ADMINISTRATOR-C Status: REG CLI Study: Chest PA and Lateral Date of Exam: 02/03/25 Exam# [id number] Ordering Dr: Juliano Cummins PA EXAM: XR Chest, 2 Views CLINICAL INDICATION: COUGH X 1 WEEK TECHNIQUE: Frontal and lateral views of the chest. COMPARISON: No relevant prior studies available. FINDINGS: LUNGS AND PLEURAL SPACES: Unremarkable. No consolidation. No pneumothorax. HEART: Unremarkable. No cardiomegaly. MEDIASTINUM: Unremarkable. Normal mediastinal contour. BONES/JOINTS: Unremarkable. No acute fracture. RAD/Chest PA and Lateral IMPRESSION: No acute cardiopulmonary process. 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 No Panel InformationOrdered By: Juliano Cummins on 02-03-2025 Influenza Types A,B Rapid (Clinic) Negative [facility] POC SARS CoV-2 Antigen Negative [facility] Urgent Care Visit Reporton 0 02-03-2025 Urgent Care Visit Report [facility] [address], [address] [place] [address] OFFICE VISIT Date of Service: 02/03/25 MR#: [id number] Acct: [id number] Name: WINIFRED VÁSQUEZ Rep #: [id number] : 1950 Provider: [employer] Age/Sex: 74/F Location: [email or web address] Status: Signed Intake Vital Signs 12/09/24 15:20 02/03/25 11:50 Height 4 ft 11 in Weight: 210 lb BMI 42.4 BP 127/77 H 100/60 Blood Pressure Location Lt brachial Lt brachial Position Sitting Sitting Respiration 18 16 Pulse 76 72 Pulse Source NIBP NIBP Temp 98.3 F Temp Source Oral Pulse Oximetry (%) 96 Oxygen Delivery Method room air Intake Visit Reasons: Cough Chief Complaint: cough, SOB, fatigue [employer] [place] Required: No Is patient in pain?: No Allergies adhesive tape (plastic tape) Adverse Reaction (Severe, Verified 02/03/25 11:50) Other cephalexin Adverse Reaction (Severe, Verified 02/03/25 11:50) Rash clindamycin Adverse Reaction (Severe, Verified 02/03/25 11:50) Rash Penicillins Adverse Reaction (Severe, Verified 02/03/25 11:50) Rash Sulfa (Sulfonamide Antibiotics) Adverse Reaction (Severe, Verified 02/03/25 11:50) Rash Is last menstrual period known: No Post menopausal: Yes Patient : No Have you fallen in the past year?: No Nurse's Note: cough, SOB, fatigue, weak x 1 week without improvement. seen at [facility] 6 days ago, dxd with dehydration and flu. pt on Eliquis--cannot have Tamiflu. was given Zofran and advised to f/u with PCP. pt not eating or drinking much at all per . 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 cancer Hypertension Osteopenia due to cancer therapy Bradycardia KRISTY (obstructive sleep apnea) DCIS (ductal carcinoma in situ) Breast cancer, right Nonrheumatic mitral (valve) insufficiency Obstructive sleep apnea Type 2 diabetes mellitus Osteoarthritis Hyperlipidemia Asthma Obesity Essential hypertension Surgical History History of colonoscopy History of esophagogastroduodenoscopy (EGD) History of cataract extraction History of right cataract extraction ( 02/2023) S/P skin biopsy History of lumpectomy of right breast (01/15/19) History of breast biopsy (12/2018) History of ankle surgery History of tubal ligation Hx of cholecystectomy Family History Mother Heart disease Breast cancer PER PATIENT MOTHER DID NOT HAVE BREAST CANCER Aunt Breast cancer Sister Breast cancer Asthma Father Colon cancer Brother Colon cancer Other Cancer Social History household members: spouse and children housing: house number of children: 6 Smoking Status: Never smoker second hand exposure: No alcohol intake: never substance use type: does not use caffeine: No emanuel/temple: Holiness seatbelt use: always do you feel safe at home: Yes HPI HPI Chief Complaint: cough, SOB, fatigue Details: WINIFRED VÁSQUEZ, is a 74 F who presents to the office today for cough, SOB, fatigue, weak x 1 week without improvement. She was evaluated at [facility] 6 days ago, dxd with dehydration and flu. Patient was given Zofran which did help with the nausea and has been advised to report to her PCP however is not able to get into her PCP until tomorrow. She does state some shortness of breath however denies difficulty breathing or chest pain. No fever, chills or sweats. No vomiting or diarrhea. No other associated symptoms or alleviating/aggravating factors. ROS Const Constitutional: No other (6 system ROS completed with pertinent findings in the HPI otherwise normal.) Exam Const General: cooperative and well developed HENMT Head: normal to inspection and atraumatic Ears: external ears normal and TM abnormal erythematous on the right and perforated with clear discharge on the right Nose: nasal discharge clear Face and sinus: normal facial exam Mouth: oral mucosae normal Throat: abnormal tonsil bilaterally hypertrophy 1+ Resp Effort Inspection: normal respiratory effort and no audible wheezes Auscultation: Bilateral: Clear to Auscultation and Expiratory Wheezes (Cleared with albuterol nebulized treatment) Cardio Rate: regular rate Rhythm: regular rhythm Neuro General: patient alert Psych Appe (more content not included)... Normal [facility] ALLIED HEALTHon 01-28-2025 ALLIED HEALTH HNO ID: [id number] Author: YOBANY CANTU CT Service: ? Author Type: Technologist Type: Allied Health Filed: 01/28/2025 11:34 Note Text: Radiology Service Progress Note PATIENT NAME: Winifred Vásquez DATE OF SERVICE: January 28, 2025 TIME: 11:34 AM PATIENT IDENTITY VERIFICATION COMPLETED USING TWO (2) IDENTIFIERS: Name and Date of confirmed by patient verbally. FALL SCREENING: Has the patient had 2 falls in the last year or 1 fall with injury or currently using an Ambulatory Assistive Device (Walker, Cane, Wheelchair, Crutches, etc.)? No PATIENT GENDER DATA: Assigned female at . status: : No status: NO. PATIENT RELEVANT IMPLANT DATA REVIEWED: Not Applicable PATIENT PRESENTS WITH AN IMPLANTABLE OR ATTACHED RECREATION THERAPY AIDES TEACHER: No RADIOLOGY DEPARTMENT: General X-ray: Exam(s) Completed: Chest X-Ray PERIPHERAL IV DATA: Not applicable SIGNED BY: JEN Gray January 28, 2025 11:34 AM Normal [facility] CBC W Auto Differential pane l (Bld)on 01-28-2025 Basophils (Bld) [#/Vol] 10*3/uL Normal <0.11 [facility] Comment on above: Order Comment: Speci men Type: BLOOD SPECIMEN Ordering Facility: [facility] Address: [address] [place] [address] Performed By: #### 5 7021-8 #### [facility] CLIA [id number] [address] [place] [address] [place] Basophils/100 WBC (Bld) 0.4 % Normal [facility] Comment on above: Order Comment: Speci men Type: BLOOD SPECIMEN Ordering Facility: [facility] Address: [address] [place] [address] Performed By: #### 5 7021-8 #### [facility] CLIA [id number] [address] [place] [address] [place] Differential cell count method Nom (Bld) Auto Normal [facility] Comment on above: Order Comment: Speci men Type: BLOOD SPECIMEN Ordering Facility: [facility] Address: [address] [place] [address] Performed By: #### 5 7021-8 #### [facility] CLIA [id number] [address] [place] [id number] [place] Eosinophils (Bld) [#/Vol] 10*3/uL Normal <0.46 [facility] Comment on above: Order Comment: Speci men Type: BLOOD SPECIMEN Ordering Facility: [facility] Address: [address] [place] [address] Performed By: #### 5 7021-8 #### [facility] CLIA [id number] [address] [place] [address] [place] Eosinophils/100 WBC (Bld) 0.0 % Normal [facility] Comment on above: Order Comment: Speci men Type: BLOOD SPECIMEN Ordering Facility: [facility] Address: [address] [place] [address] Performed By: #### 5 7021-8 #### [facility] CLIA [id number] [address] [place] [address] [place] Erythrocyte distribution width (RBC) [Ratio] 12.7 % Normal 11.5-15.0 [facility] Comment on above: Order Comment: Speci men Type: BLOOD SPECIMEN Ordering Facility: [facility] Address: [address] [place] [address] Performed By: #### 5 7021-8 #### [facility] CLIA [id number] [address] [place] Hematocrit (Bld) [Volume fraction] 40.8 % Normal 36.0-46.0 [facility] Comment on above: Order Comment: Speci men Type: BLOOD SPECIMEN Ordering Facility: [facility] Address: [address] [place] [address] Performed By: #### 5 7021-8 #### [facility] CLIA [id number] [address] [place] [address] [place] Hemoglobin (Bld) [Mass/Vol] 13.7 g/dL Normal 11.5-15.5 [facility] Comment on above: Order Comment: Speci men Type: BLOOD SPECIMEN Ordering Facility: [facility] Address: [address] [place] [address] Performed By: #### 5 7021-8 #### [facility] CLIA [id number] [address] [place] [address] [place] Immature granulocytes (Bld) [#/Vol] 0.03 10*3/uL Normal <0.10 [facility] Comment on above: Order Comment: Speci men Type: BLOOD SPECIMEN Ordering Facility: [facility] Address: [address] [place] [address] Performed By: #### 5 7021-8 #### [facility] CLIA [id number] [address] [place], [place] [id number] [place] [address] Immature granulocytes/100 WBC (Bld) 0.6 % Normal [facility] Comment on above: Order Comment: Speci men Type: BLOOD SPECIMEN Ordering Facility: [facility] Address: [address] [place] [address] Performed By: #### 5 7021-8 #### [facility] CLIA [id number] [address] [place] Lymphocytes (Bld) [#/Vol] 0.75 10*3/uL Low 1.00-4.00 [facility] Comment on above: Order Comment: Speci men Type: BLOOD SPECIMEN Ordering Facility: [facility] Address: [address] [place] [address] Performed By: #### 5 7021-8 #### [facility] CLIA [id number] [address] [place] [address] OF [facility] Lymphocytes/100 WBC (Bld) 14.9 % Normal [facility] Comment on above: Order Comment: Speci men Type: BLOOD SPECIMEN Ordering Facility: [facility] Address: [address] [place] [address] Performed By: #### 5 7021-8 #### [facility] CLIA [id number] [address] [place] [address] [place] MCH (RBC) [Entitic mass] 30.4 pg Normal 26.0-34.0 [facility] Comment on above: Order Comment: Speci men Type: BLOOD SPECIMEN Ordering Facility: [facility] Address: [address] [place] [address] Performed By: #### 5 7021-8 #### [facility] CLIA [id number] [address] [place] [address] [place] MCHC (RBC) [Mass/Vol] 33.6 g/dL Normal 30.5-36.0 [facility] Comment on above: Order Comment: Speci men Type: BLOOD SPECIMEN Ordering Facility: [facility] Address: [address] [place] [address] Performed By: #### 5 7021-8 #### [facility] CLIA [id number] [address] [place] [address] [place] MCV (RBC) [Entitic vol] 90.7 fL Normal 80.0-100.0 [facility] Comment on above: Order Comment: Speci men Type: BLOOD SPECIMEN Ordering Facility: [facility] Address: [address] [place] [address] Performed By: #### 5 7021-8 #### [facility] CLIA [id number] [address] [place] [address] [place] Monocytes (Bld) [#/Vol] 0.55 10*3/uL Normal <0.87 [facility] Comment on above: Order Comment: Speci men Type: BLOOD SPECIMEN Ordering Facility: [facility] Address: [address] [place] [address] Performed By: #### 5 7021-8 #### [facility] CLIA [id number] [address] [place] [id number] [place] [address] [place] Monocytes/100 WBC (Bld) 10.9 % Normal [facility] Comment on above: Order Comment: Speci men Type: BLOOD SPECIMEN Ordering Facility: [facility] Address: [address] [place] [address] Performed By: #### 5 7021-8 #### [facility] CLIA [id number] [address] [place] [address] [place] Neutrophils (Bld) [#/Vol] 3.70 10*3/uL Normal 1.45-7.50 [facility] Comment on above: Order Comment: Speci men Type: BLOOD SPECIMEN Ordering Facility: [facility] Address: [address] [place] [address] Performed By: #### 5 7021-8 #### [facility] CLIA [id number] [address] [place] [address] [place] Neutrophils/100 WBC (Bld) 73.2 % Normal [facility] Comment on above: Order Comment: Speci men Type: BLOOD SPECIMEN Ordering Facility: [facility] Address: [address] [place] [address] Performed By: #### 5 7021-8 #### [facility] CLIA [id number] [address] [place] [address] [place] Nucleated RBC (Bld) [#/Vol] Normal [facility] Comment on above: Order Comment: Speci men Type: BLOOD SPECIMEN Ordering Facility: [facility] Address: [address] [place] [address] Performed By: #### 5 7021-8 #### [facility] CLIA [id number] [address] [place] [address] [place] Nucleated RBC/100 WBC (Bld) [Ratio] Normal [facility] Comment on above: Order Comment: Speci men Type: BLOOD SPECIMEN Ordering Facility: [facility] Address: [address] [place] [address] Performed By: #### 5 7021-8 #### [facility] CLIA [id number] [address] [place] [address] [place] Platelet mean volume (Bld) [Entitic vol] 10.7 fL Normal 9.0-12.7 [facility] Comment on above: Order Comment: Speci men Type: BLOOD SPECIMEN Ordering Facility: [facility] Address: [address] [place] [address] Performed By: #### 5 7021-8 #### [facility] CLIA [id number] [address] [place] [address] [place] Platelets (Bld) [#/Vol] 125 10*3/uL Low 150-400 [facility] Comment on above: Order Comment: Speci men Type: BLOOD SPECIMEN Ordering Facility: [facility] Address: [address] [place], [place] [address] Performed By: #### 5 7021-8 #### [facility] CLIA [id number] [address] [place] [address] [facility] RBC (Bld) [#/Vol] 4.50 10*6/uL Normal 3.90-5.20 [facility] Comment on above: Order Comment: Speci men Type: BLOOD SPECIMEN Ordering Facility: [facility] Address: [address] [place] [address] Performed By: #### 5 7021-8 #### [facility] CLIA [id number] [address] [place], [place] [id number] [place] [address] WBC (Bld) [#/Vol] 5.05 10*3/uL Normal 3.70-11.00 [facility] Comment on above: Order Comment: Speci men Type: BLOOD SPECIMEN Ordering Facility: [facility] Address: [address] [place] [address] Performed By: #### 5 7021-8 #### [facility] CLIA [id number] [address] [place] [id number] [place] [address] OF [facility] Comprehensive metabolic 2000 panelon 01-28-2025 Albumin [Mass/Vol] 3.8 g/dL Low 3.9-4.9 [facility] Comment on above: Order Comment: Speci men Type: BLOOD SPECIMEN Ordering Facility: [facility] Address: [address] [place] [address] Performed By: #### 1 9123-9, 33089-7 #### [facility] CLIA [id number] [address] [place] [address] [facility] ALP [Catalytic activity/Vol] 80 U/L Normal 34-123 [facility] Comment on above: Order Comment: Speci men Type: BLOOD SPECIMEN Ordering Facility: [facility] Address: [address] [place] [address] Performed By: #### 1 9123-9, 93349-2 #### [facility] CLIA [id number] [address] [place] [address] [place] ALT With P-5'-P [Catalytic activity/Vol] 15 U/L Normal 7-38 [facility] Comment on above: Order Comment: Speci men Type: BLOOD SPECIMEN Ordering Facility: [facility] Address: [address] [place] [address] Performed By: #### 1 9123-9, 86891-1 #### [facility] CLIA [id number] [address] [place] [address] [place] Anion gap [Moles/Vol] 13 mmol/L Normal 8-15 [facility] Comment on above: Order Comment: Speci men Type: BLOOD SPECIMEN Ordering Facility: [facility] Address: [address] [place] [address] Performed By: #### 1 9123-9, 29422-6 #### [facility] CLIA [id number] [address] [place] [address] [place] AST With P-5'-P [Catalytic activity/Vol] 30 U/L Normal 13-35 [facility] Comment on above: Order Comment: Speci men Type: BLOOD SPECIMEN Ordering Facility: [facility] Address: [address] [place] [address] Performed By: #### 1 9123-9, 42839-9 #### [facility] CLIA [id number] [address] [place] [address] [place] Bilirubin [Mass/Vol] 0.8 mg/dL Normal 0.2-1.3 [facility] Comment on above: Order Comment: Speci men Type: BLOOD SPECIMEN Ordering Facility: [facility] Address: [address] [place] [address] Performed By: #### 1 9123-9, 43905-0 #### [facility] CLIA [id number] [address] [place] [address] [place] Calcium [Mass/Vol] 9.1 mg/dL Normal 8.5-10.2 [facility] Comment on above: Order Comment: Speci men Type: BLOOD SPECIMEN Ordering Facility: [facility] Address: [address] [place] [address] Performed By: #### 1 9123-9, 37151-3 #### [facility] CLIA [id number] [address] [place] [address] [place] Chloride [Moles/Vol] 96 mmol/L Low 98-107 [facility] Comment on above: Order Comment: Speci men Type: BLOOD SPECIMEN Ordering Facility: [facility] Address: [address] [place] [address] Performed By: #### 1 9123-9, #### [facility] CLIA [id number] [address] [place] [address] [place] CO2 [Moles/Vol] 23 mmol/L Normal 22-30 [facility] Comment on above: Order Comment: Speci men Type: BLOOD SPECIMEN Ordering Facility: [facility] Address: [address] [place] [address] Performed By: #### 1 9123-9, 33729-6 #### [facility] CLIA [id number] [address] [place] [address] [place] Creatinine [Mass/Vol] 0.76 mg/dL Normal 0.58-0.96 [facility] Comment on above: Order Comment: Speci men Type: BLOOD SPECIMEN Ordering Facility: [facility] Address: [address] [place] [address] Performed By: #### 1 9123-9, #### [facility] CLIA [id number] [address] [place] [address] [facility] [place] Creatinine and Glomerular filtration rate.predicted panel (S/P/Bld) 82 mL/min/1.73m??? Normal >=60 [facility] Comment on above: Order Comment: Speci men Type: BLOOD SPECIMEN Ordering Facility: [facility] Address: [address] [place] [address] Result Comment: Abby mated Glomerular Filtration Rate (eGFR) is calculated using the 2020 CKD-EPI creatinine equation. This equation utilizes serum creatinine, sex, and age as parameters. The creatinine assay has traceable calibration to isotope dilution-mass spectrometry. Refer to KDIGO guidelines for clinical interpretation. In patients with unstable renal function, e.g. those with acute kidney injury, the eGFR may not accurately reflect actual GFR. Performed By: #### 1 9123-9, 23529-2 #### [facility] CLIA [id number] [address] [place] [address] [place] Glucose [Mass/Vol] 117 mg/dL High 74-99 [facility] Comment on above: Order Comment: Jcarlos sandhu Type: BLOOD SPECIMEN Ordering Facility: [facility] Address: [address] [place] [address] Result Comment: The [place] [employer] Association (ADA) provides guidance for cutoff values for fasting glucose and random glucose. The ADA defines fasting as no caloric intake for at least 8 hours. Fasting plasma glucose results between 100 to 125 mg/dL indicate increased risk for diabetes (prediabetes). Fasting plasma glucose results greater than or equal to 126 mg/dL meet the criteria for diagnosis of diabetes. In the absence of unequivocal hyperglycemia, results should be confirmed by repeat testing. In a patient with classic symptoms of hyperglycemia or hyperglycemic crisis, random plasma glucose results greater than or equal to 200 mg/dL meet the criteria for diagnosis of diabetes. Reference: Standards of Medical Care in Diabetes 2016, [place] [employer] Association. Diabetes Care. 2016.39(Suppl 1). Performed By: #### 1 9123-9, 38702-5 #### [facility] CLIA [id number] [address] [place] [address] [place] Potassium [Moles/Vol] 3.6 mmol/L Low 3.7-5.1 [facility] Comment on above: Order Comment: Jcarlos sandhu Type: BLOOD SPECIMEN Ordering Facility: [facility] Address: [address] [place] [address] Performed By: #### 1 9123-9, 64800-5 #### [facility] CLIA [id number] [address] [place] [address] [place] Protein [Mass/Vol] 6.7 g/dL Normal 6.3-8.0 [facility] Comment on above: Order Comment: Jcarlos sandhu Type: BLOOD SPECIMEN Ordering Facility: [facility] Address: [address] [place] [address] Performed By: #### 1 9123-9, 52692-0 #### [facility] CLIA [id number] [address] [place] [address] [place] Sodium [Moles/Vol] 132 mmol/L Low 136-144 [facility] Comment on above: Order Comment: Speci men Type: BLOOD SPECIMEN Ordering Facility: [facility] Address: [address] [place] [address] Performed By: #### 1 9123-9, 78100-1 #### [facility] CLIA [id number] [address] [place] [address] [place] [facility] Urea nitrogen [Mass/Vol] 13 mg/dL Normal 7-21 [facility] Comment on above: Order Comment: Sarai men Type: BLOOD SPECIMEN Ordering Facility: [facility] Address: [address] [place] [address] Performed By: #### 1 9123-9, 51746-3 #### [facility] CLIA [id number] [address] [place] [address] [facility] [place] ECG COMPLETEon 01-28-2025 ECG COMPLETE Ventricular Rate : 8 3 BPM QRS Duration : 90 ms Q-T Interval : 390 ms QTC Calculation(Bazett) : 458 ms Calculated R [place] : 54 degrees Calculated T [place] : 42 degrees ATRIAL FIBRILLATION WITH A COMPETING JUNCTIONAL PACEMAKER WITH PREMATURE VENTRICULAR OR ABERRANTLY CONDUCTED COMPLEXES ABNORMAL ECG WHEN COMPARED WITH ECG OF 22-Mar-2008 16:46, ATRIAL FIBRILLATION HAS REPLACED SINUS RHYTHM VENT. RATE HAS INCREASED by 36 bpm Confirmed by MD HUY, FAINA ([id number]) on 01/30/2025 1:19:03 AM NAME : WINIFRED VÁSQUEZ PID : [id number] : 1950 Gender : Female Race : ORD : [id number] Procedure Date : Jan 28 2025 11:17:20 Edit Date : Jan 30 2025 01:19:05 Diagnosis: ATRIAL FIBRILLATION WITH A COMPETING JUNCTIONAL PACEMAKER WITH PREMATURE VENTRICULAR OR ABERRANTLY CONDUCTED COMPLEXES ABNORMAL ECG WHEN COMPARED WITH ECG OF 22-Mar-2008 16:46, ATRIAL FIBRILLATION HAS REPLACED SINUS RHYTHM VENT. RATE HAS INCREASED by 36 bpm Confirmed by MD SON VINAYAK ([id number]) on 01/30/2025 1:19:03 AM Test Reason : Chest Pain Location : 191 : [facility] ED Overread By : MD SON VINAYAK Edited By : MD SON VINAYAK Referred By : , Acquired by : KRYSTAL BARNHART [facility] ED NOTEon 01-28-2025 ED NOTE HNO ID: [id number] Author: DANICA SIEGEL RN Service: Nursing Author Type: Registered Nurse Type: ED Notes Filed: 01/28/2025 13:36 Note Text: Pt verbalizes understanding of discharge instructions. Pt assisted out of ED in wheelchair [facility] ED NOTE HNO ID: [id number] Author: TD BAXTER RN Service: ? Author Type: Registered Nurse Type: ED Notes Filed: 01/28/2025 11:28 Note Text: Pt incont of light brown soft stool, pt was cleaned and new bedding placed [facility] ED NOTE HNO ID: [id number] Author: TD BAXTER RN Service: ? Author Type: Registered Nurse Type: ED Notes Filed: 01/28/2025 10:40 Note Text: Pt reports feeling more fatigued and weak for the past few days. Pt reports a productive cough. Pt denies urinary or gi symptoms. [facility] ED PROV NOTEon 01-28-2025 ED PROV NOTE HNO ID: [id number] Author: SUSAN CONNOLLY MD Service: Emergency Medicine Author Type: Physician Type: ED Provider Notes Filed: 01/28/2025 14:10 Note Text: ED Provider Note Patient Name: Winifred Vásquez : 1950 SERVICE DATE: 01/28/25 History Patient presents with: Weakness Patient is a 74-year-old female with history of asthma, A-fib, anemia, CHF, diabetes, hypertension, hyperlipidemia presenting to the emergency room for evaluation of generalized weakness. Symptoms started about 2 days ago. Endorsing a mild cough that is nonproductive. with similar symptoms starting several days before her, and now associate with diarrhea that patient has not developed yet. No chest pain or discomfort. No loss of consciousness. Feels generalized weak with no focal numbness or weakness. No rashes or wounds. Tolerant of p.o. intake though appetite is down. No difficulty breathing or speaking. No urinary symptoms. PAST MEDICAL HISTORY Diagnosis Date Anemia Arthritis Asthma (HCC) Congestive heart failure (HCC) Congestive heart failure, unspecified Diabetes (HCC) Disorder of bone and cartilage, unspecified Esophageal reflux History of breast cancer History of skin cancer Hypertension Osteoarthrosis, unspecified whether generalized or localized, unspecified site Other abnormal glucose Other and unspecified hyperlipidemia Sleep apnea Unspecified essential hypertension PAST SURGICAL HISTORY Procedure Laterality Date CHOLECYSTECTOMY HX COLONOSCOPY FLX DX W/COLLJ SPEC WHEN PFRMD 01/16/2015 Colonoscopy REMV CATARACT EXTRACAP,INSERT LENS Right 03/13/2023 REMV CATARACT EXTRACAP,INSERT LENS Left 12/25/2023 SN60WF 21.0 D FAMILY HISTORY Problem Relation Age of Onset Colon Cancer Father Heart Mother No Ocular Disease No Family History Social History Tobacco Use Smoking status: Never Smokeless tobacco: Not on file Vaping Use Vaping status: Never Used Substance and Sexual Activity Alcohol use: No Drug use: No Sexual activity: Not on file Comment: question not asked ALLERGIES Allergen Reactions Penicillins Rash Tongue swelled Cephalexin Rash blisters Clindamycin Intolerance Sulfa (Sulfonamide * Intolerance Review of Systems Constitutional: Positive for activity change, appetite change and fatigue. Negative for chills and fever. HENT: Negative for ear discharge and ear pain. Eyes: Negative for pain and discharge. Respiratory: Positive for cough. Negative for shortness of breath. Cardiovascular: Negative for chest pain and palpitations. Gastrointestinal: Negative for abdominal pain, diarrhea, nausea and vomiting. Genitourinary: Negative for dysuria and flank pain. Musculoskeletal: Negative for back pain and neck pain. Skin: Negative for color change, rash and wound. Neurological: Positive for weakness. Negative for dizziness, seizures and numbness. Psychiatric/Behavioral: Negative for self-injury and suicidal ideas. Physical Exam Vitals [01/28/25 1032] BP Pulse Temp Temp src Resp SpO2 Weight Height 129/58 80 37.6 ?C (99.6 ?F) Temporal Art 16 96 % 95.7 kg (211 lb) 1.499 m (4' 11) Physical Exam Vitals and nursing note reviewed. Constitutional: General: She is not in acute distress. Appearance: She is well-developed. She is not diaphoretic. Comments: Sitting up in bed, appears fatigued, but not acutely toxic HENT: Head: Normocephalic and atraumatic. Right Ear: External ear normal. Left Ear: External ear normal. Nose: Nose normal. Mouth/Throat: Mouth: Mucous membranes are moist. Pharynx: No oropharyngeal exudate or posterior oropharyngeal erythema. Comments: No posterior oropharynx swelling or exudate. Uvula midline without edema. No drooling or dysphonia. No woody induration underneath the tongue. Tongue is midline without elevation. Eyes: General: No scleral icterus. Right eye: No discharge. Left eye: No discharge. Pupils: Pupils are equal, round, and reactive to light. Cardiovascular: Rate and Rhythm: Normal rate. Rhythm irregular. Heart sounds: Normal heart sounds. No murmur heard. No friction rub. No gallop. Comments: Irregularly irregular Pulmonary: Effort: Pulmonary effort is normal. No respiratory distress. Breath sounds: Normal breath sounds. No stridor. No wheezing or rales. Chest: Chest wall: No tenderness. Abdominal: Palpations: Abdomen is soft. Tenderness: There is no abdominal tenderness. There is no guarding. Musculoskeletal: General: No tenderness or deformity. Normal range of motion. Cervical back: Normal range of motion and neck supple. Skin: General: Skin is warm and dry. Capillary Refill: Capillary refill takes less than 2 seconds. Findings: No rash. Neurological: General: No focal deficit present. Mental Status: She is alert and oriented to person, place, and time. Cranial Nerves: No cranial nerve deficit. Sensory: No sensory de (more content not included)... Normal [facility] HIGH SENSITIVITY TROPONIN T (INITIAL)on 01-28-2025 Troponin T.cardiac High sensitivity method [Mass/Vol] 11 ng/L Normal <12 [facility] Comment on above: Order Comment: Speci men Type: BLOOD SPECIMENOrdering Facility: [facility] Address: [address] [place], [place] [address] Performed By: #### L [id number] ####[facility] [id number] [place] [address] [facility] HIGH SENSITIVITY TROPONIN T (SECOND)on 01-28-2025 Troponin T.cardiac High sensitivity method [Mass/Vol] 10 ng/L Normal <12 [facility] Comment on above: Order Comment: Speci men Type: BLOOD SPECIMEN Ordering Facility: [facility] Address: [address] [place] [address] Performed By: #### L [id number] #### [facility] CLIA [id number] [address] [place] [address] [facility] Magnesium SerPl-mCncon 01-28 Magnesium [Mass/Vol] 1.5 mg/dL Low 1.7-2.3 [facility] Comment on above: Order Comment: Speci men Type: BLOOD SPECIMEN Ordering Facility: [facility] Address: [address] [place] [address] Performed By: #### 1 9123-9, 35322-4 #### [facility] CLIA [id number] [address] [place] [address] [facility] Urinalysis complete panel (U )on 01-28-2025 Bacteria LM.HPF (Urine sed) [#/Area] Rare Abnormal None Seen [facility] Comment on above: Order Comment: Speci men Type: URINE SPECIMEN Ordering Facility: [facility] Address: [address] [place] [address] Performed By: #### 2 4356-8 #### [facility] CLIA [id number] [address] [place] [address] [facility] Bilirubin Ql (U) Negative Normal Negative [facility] Comment on above: Order Comment: Speci men Type: URINE SPECIMEN Ordering Facility: [facility] Address: [address] [place] [address] Performed By: #### 2 4356-8 #### [facility] CLIA [id number] [address] [place] [address] [place] Clarity (Unsp spec) Clear Normal Clear [facility] Comment on above: Order Comment: Speci men Type: URINE SPECIMEN Ordering Facility: [facility] Address: [address] [place] [address] Performed By: #### 2 4356-8 #### [facility] CLIA [id number] [address] [place] [address] [facility] [place] Color (U) Yellow Normal Yellow [facility] Comment on above: Order Comment: Speci men Type: URINE SPECIMEN Ordering Facility: [facility] Address: [address] [place] [address] Performed By: #### 2 4356-8 #### [facility] CLIA [id number] [address] [place] [id number] [facility] Epithelial cells LM.HPF (Urine sed) [#/Area] Few Normal [facility] Comment on above: Order Comment: Speci men Type: URINE SPECIMEN Ordering Facility: [facility] Address: [address] [place] [address] Performed By: #### 2 4356-8 #### [facility] CLIA [id number] [address] [place] [address] [facility] [place] Glucose Test strip (U) [Mass/Vol] Negative Normal Negative [facility] Comment on above: Order Comment: Speci men Type: URINE SPECIMEN Ordering Facility: [facility] Address: [address] [place] [address] Performed By: #### 2 4356-8 #### [facility] CLIA [id number] [address] [place] [address] [place] Hemoglobin Ql (U) Trace Abnormal Negative [facility] Comment on above: Order Comment: Speci men Type: URINE SPECIMEN Ordering Facility: [facility] Address: [address] [place] [address] Performed By: #### 2 4356-8 #### [facility] CLIA [id number] [address] [place] [address] [facility] [place] Ketones Ql (U) 1+ Abnormal Negative [facility] Comment on above: Order Comment: Speci men Type: URINE SPECIMEN Ordering Facility: [facility] Address: [address] [place] [address] Performed By: #### 2 4356-8 #### [facility] CLIA [id number] [address] [place] [address] [facility] Leukocyte esterase Test strip Ql (U) Negative Normal Negative [facility] Comment on above: Order Comment: Speci men Type: URINE SPECIMEN Ordering Facility: [facility] Address: [address] [place] [address] Performed By: #### 2 4356-8 #### [facility] CLIA [id number] [address] Nitrite Ql (U) Negative Normal Negative [facility] Comment on above: Order Comment: Speci men Type: URINE SPECIMEN Ordering Facility: [facility] Address: [address] [place] [address] Performed By: #### 2 4356-8 #### [facility] CLIA [id number] [address] pH (U) 5.5 [pH] Normal 5.0-8.0 [facility] Comment on above: Order Comment: Speci men Type: URINE SPECIMEN Ordering Facility: [facility] Address: [address] [place] [address] Performed By: #### 2 4356-8 #### [facility] CLIA [id number] [address] [place] [address] [facility] Protein (U) [Mass/Vol] Negative Normal Negative [facility] Comment on above: Order Comment: Speci men Type: URINE SPECIMEN Ordering Facility: [facility] Address: [address] [place] [address] Performed By: #### 2 4356-8 #### [facility] CLIA [id number] [address] [place] [address] [place] RBC LM.HPF (Urine sed) [#/Area] 0-3 /HPF Normal 0-3 /HPF [facility] Comment on above: Order Comment: Speci men Type: URINE SPECIMEN Ordering Facility: [facility] Address: [address] [place] [address] Performed By: #### 2 4356-8 #### [facility] CLIA [id number] [address] [place] [address] [facility] Specific gravity (U) [Rel density] 1.020 Normal 1.005-1.03 0 [facility] Comment on above: Order Comment: Speci men Type: URINE SPECIMEN Ordering Facility: [facility] Address: [address] [place] [address] Performed By: #### 2 4356-8 #### [facility] CLIA [id number] [address] [place] [address] Urobilinogen Ql (U) 1.0 EU/dL Normal 0.2-1.0 EU/dL [facility] Comment on above: Order Comment: Speci men Type: URINE SPECIMEN Ordering Facility: [facility] Address: [address] [place] [address] Performed By: #### 2 4356-8 #### [facility] CLIA [id number] [address] [place] [address] WBC LM.HPF (Urine sed) [#/Area] 0-5 /HPF Normal 0-5 /HPF [facility] Comment on above: Order Comment: Speci men Type: URINE SPECIMEN Ordering Facility: [facility] Address: [address] [place] [address] Performed By: #### 2 4356-8 #### [facility] CLIA [id number] [address] [facility] XR CHEST 2V FRONTAL/LATon XR CHEST 2V FRONTAL/LAT * * *Final Report* * * DATE OF EXAM: Jan 28 2025 11:33AM LDX 5291 - XR CHEST 2V FRONTAL/LAT / PROCEDURE REASON: Cough * * * * Physician Interpretation * * * * EXAMINATION: CHEST RADIOGRAPH (2 VIEW FRONTAL and LATERAL) CLINICAL HISTORY: Cough MQ: [id number] EXAM DATE/TIME: 01/28/2025 11:33 AM COMPARISON: 03/25/2008 RESULT: Lines, tubes, and devices: None. Lungs and pleura: No consolidation. No lung mass. No pleural effusion. No pneumothorax. Cardiomediastinal silhouette: Normal cardiomediastinal silhouette. Bones and soft tissues: Unremarkable. IMPRESSION: No acute radiographic abnormality. Installation And Repair Technician: PSCB Transcribe Date/Time: Jan 28 2025 11:37A Dictated by : TOBI PORTILLO MD This examination was interpreted and the report reviewed and electronically signed by: TOBI PORTILLO MD on Jan 28 2025 11:39AM EST [id number] Normal [facility] 12 Lead [place] [facility] [place]-09-2024 12 Lead EKG performed by [address] [address] 12 Lead EKG [place] [facility] 12/09/24 1549 MR#: [id number] Acct: [id number] Name: WINIFRED VÁSQUEZ Rep #: [id number] : 1950 74 From: Stewart Newman MD Attending Dr: Dr. Stewart Newman MD Status: DEP A MB Ordering Dr: Stewart Newman MD Date: 12/09/24 [place] [facility] [place] Sex: F C Ad[place]: [facility] Lead E[place] performed [place] [facility] ECG Report Interpretation A trial fibrillation -Frequent pvcs -ventricular trigeminy - Nonspecific T-abnormality. ABNORMALNo significant Changes Compared to 10/01/2024 ECG Electronically signed on 12/13/2024 at 09:[address] Elijah Moran Software Version 8610 12/13/24 0952 Date Stewart Newman MD CC: [facility] MEDICAL OFFICE ADMINISTRATOR-C Lucitafabiola Agarwal Date Dictated: 12/09/24 1549 Date Transcribed: 12/09/241548 Installation And Repair Technician: [place] Signed Normal [facility] Cardiology Visit Reporton Cardiology Visit Report [facility] [address] [place] [address] OFFICE VISIT Date of Service: 12/09/24 MR#: [id number] Acct: [id number] Name: WINIFRED VÁSQUEZ Rep #: [id number] : 1950 Provider: Dr. Stewart Newman MD Age/Sex: 74/F [place] [facility] Status: Signed HPI HPI History of Present Illness Details: WINIFRED VÁSQUEZ, is a 74 F who presents to the office today a cardiovascular follow-up.??? She has a history of bradycardia, palpitations and hypertension.??? She was diagnosed with right breast carcinoma. She did undergo radiation. She was also diagnosed with melanoma. In August 2024, she was undergoing screening colonoscopy and EGD and noted to be in atrial fibrillation at a controlled rate of 72 bpm. She was started on oral anticoagulation. She denies chest, arm, jaw, or neck discomfort. She states palpitations that she describes as fluttering. She continues with bilateral lower extremity edema. She denies claudication. She continues with shortness of breath with activity. She denies shortness of breath at rest, orthopnea, or PND. She denies chronic cough. She denies significant, sudden weight gain. She acknowledges dizziness. She denies lightheadedness, near-syncope, or syncope. She denies blood in urine, blood in stool, or epistaxis. He denies fever with chills. She denies myalgia. She states fatigue. Her exercise level has remained stable. Overall, she states feeling much better than previous. Intake Vital Signs 09/16/23 09:04 09/28/24 15:16 12/09/24 15:20 Height 4 ft 11 in 4 ft 11 in 4 ft 11 in Weight: 210 lb BMI 42.4 BP 127/77 H Blood Pressure Location Lt brachial Position Sitting Respiration 18 Pulse 76 Pulse Source NIBP Intake Visit Reasons: 1 Y FU Operations [place] Required: No Is patient in pain?: No Allergies adhesive tape (plastic tape) Adverse Reaction (Severe, Verified 12/09/24 15:24) Other cephalexin Adverse Reaction (Severe, Verified 12/09/24 15:24) Rash clindamycin Adverse Reaction (Severe, Verified 12/09/24 15:24) Rash Penicillins Adverse Reaction (Severe, Verified 12/09/24 15:24) Rash Sulfa (Sulfonamide Antibiotics) Adverse Reaction (Severe, Verified 12/09/24 15:24) Rash Medications ???Medication ???Instructions ???Recorded ???Confirmed ???Type aspirin 81 mg tablet,delayed 81 mg PO DAILY@0800 health 7 12/09/24 History release maintenance montelukast 10 mg tablet 10 mg PO DAILY allergies 06/11/17 12/09/24 History albuterol sulfate 90 mcg/actuation 2 puff inhalation Q4H PRN PRN So b 08/23/17 12/09/24 Rx aerosol inhaler /Or Wheezing ##1 ascorbate calcium (vitamin C) 500 1 gm PO DAILY Check with primary 02/14/21 12/09/24 History mg tablet doctor fexofenadine 180 mg tablet 180 mg PO DAILY PRN allergy 12/09/24 History (Rubi Allergy) symptoms pravastatin 40 mg tablet 40 mg PO QHS Check with primary 12/09/24 History doctor atenolol 50 mg tablet 50 mg PO DAILY Check with primary 10/04/21 12/09/24 History doctor hydrochlorothiazide 25 mg tablet 25 mg PO DAILY 04/22/22 12/09/24 H istory lisinopril 40 mg tablet 40 mg PO DAILY 04/22/22 12/09/24 H istory omeprazole 20 mg capsule,delayed 20 mg PO DAILY Check with primary 04/22/22 12/09/24 History release doctor biotin 1,000 mcg chewable tablet 1,000 mcg PO DAILY 01/23/23 History propylene glycol (PF) 0.6 % eye 1 drp ophthalmic (eye) TID 3 12/09/24 History drops (Systane Complete PF) oxybutynin chloride 10 mg 10 mg PO DAILY 09/04/23 12/09/24 H istory tablet,extended release 24 hr meloxicam 15 mg tablet 15 mg PO DAILY 09/16/23 12/09/24 H istory metformin 500 mg tablet,extended 500 mg PO DAILY 09/16/23 12/09/24 History release 24 hr apixaban 5 mg tablet (Eliquis) 5 mg PO BID #60 tabs 09/22/2411/27 Rx amlodipine 5 mg tablet 5 mg PO QDAY 09/28/24 12/09/24 His tory calcium 200 mg (as tab PO 09/28/24 12/09/24 History carbonate)-magnesium 100 mg chewable tablet (Riley-Mag) cholecalciferol (vitamin D3) 25 25 mcg PO QDAY 09/28/24 12/09/24 H istory mcg (1,000 unit) tablet cyanocobalamin (vitamin B-12) 1,000 mcg PO QDAY 09/28/24 5 History 1,000 mcg tablet fluticasone 500 mcg-salmeterol 50 1 ea inhalation BID PRN Sob /Or 09/28/24 12/09/24 History mcg/dose blistr powdr for Wheezing inhalation magnesium oxide PO 09/28/24 12/09/24 History Ejection fraction %: 60 Have you fallen in the past year?: [facility] Wears glasses Cancer Diabetes Arthritis High cholesterol Non-smoker CPAP (continuous positive airway pressure) dependence Sleep apnea Shortness of breath on exertion History of edema His (more content not included)... Normal [facility] Gastric Emptying Studyon Gastric Emptying Study [facility] Imaging Services [address] [place] [address] Gastric Emptying Study MR#: [id number] Acct: [id number] Name: WINIFRED VÁSQUEZ Rep #: [id number] : 1950 F 73 From: Chris Malin MD PCP: KRYSTIAN Ledesma, MEDICAL OFFICE ADMINISTRATOR-C Status: REG CLI Study: Gastric Emptying Study Date of Exam: 12/02/24 Exam# [id number] Ordering Dr: Susanna Weathers PROCEDURE: GASTRIC EMPTYING STUDY REASON FOR EXAM: Early satiety. TECHNIQUE: Following the ingestion of the radiopharmaceutical, anterior and posterior gamma camera images were acquired at 60 second intervals for a total of 60 minutes. Radiopharmaceutical: 1.0 mCi of Technetium sulfur colloid in oatmeal. COMPARISON: None. FINDINGS: Half-life: 12 minutes Gastroesophageal reflux: None. NM/Gastric Emptying Study IMPRESSION: Normal gastric emptying study. No evidence of gastroesophageal reflux. Reading Location: [facility] CC: [facility] MEDICAL OFFICE ADMINISTRATOR-C Lucita Agarwal; EMA Carrero Installation And Repair Technician: Signed [facility] [id number] 11-15-2024 [facility]. [facility] Comment on above: Order Comment: [id number] PROFILE PLUS Result Comment: TEST RESULTS LIMITS Sjogren's Profile Plus (RDL) Anti-Ro (SS-A) Ab (RDL) <20 Units <20 Anti-La (SS-B) Ab (RDL) <20 Units <20 Anti-Fodrin Ab, IgG (RDL), <10 Units <10 Anti-Fodrin Ab, IgA (RDL), <10 Units <10 Interpretation for Anti-Ro, Anti-La: Negative: <20 Weak Positive: 20 - 39 Moderate Positive: 40 - 80 Strong Positive: >80 Anti-Fodrin antibodies are associated with Sjogren's Syndrome and may occur in Swgq-Dt-ojvvqogi Sjogren's (Dean T et al. J Rheumatol 2003;30:7956-5922). TESTING PERFORMED AT [facility]. ORIGINAL REPORT ON FILE IN LAB CONTAINS ADDITIONAL TEST SITE INFORMATION. Performed By: #### L 3410.9999 ####[facility] [address] [place], [address] Gastroenterology Visit Repor ton 11-11-2024 Gastroenterology Visit Report [facility] Gastroenterology [address] [place] [address] OFFICE VISIT Date of Service: 11/11/24 MR#: [id number] Acct: [id number] Name: WINIFRED VÁSQUEZ Rep #: [id number] : 1950 Provider: EMA Carrero Age/Sex: 73/F [place] [facility] Status: Signed Intake Vital Signs 09/28/24 15:16 Height 4 ft 11 in Weight: 211 lb BMI 42.6 BP 126/66 H Blood Pressure Location Lt brachial Position Sitting Respiration 16 Pulse 49 L Pulse Source NIBP Intake Visit Reasons: Dysphagia Chief Complaint: dysphagia Is patient in pain?: No Allergies adhesive tape (plastic tape) Adverse Reaction (Severe, Verified 09/28/24 15:23) Other cephalexin Adverse Reaction (Severe, Verified 09/28/24 15:23) Rash clindamycin Adverse Reaction (Severe, Verified 09/28/24 15:23) Rash Penicillins Adverse Reaction (Severe, Verified 09/28/24 15:23) Rash Sulfa (Sulfonamide Antibiotics) Adverse Reaction (Severe, Verified 09/28/24 15:23) Rash Have you fallen in the past year?: No Nurse's Note: OV 11.11.24 Pt here to establish care with [facility] for trouble swallowing. Pt takes omeprazole daily. Denies vomiting. 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 cancer Hypertension Osteopenia due to cancer therapy Bradycardia KRISTY (obstructive sleep apnea) DCIS (ductal carcinoma in situ) Breast cancer, right Nonrheumatic mitral (valve) insufficiency Obstructive sleep apnea Type 2 diabetes mellitus Osteoarthritis Hyperlipidemia Asthma Obesity Essential hypertension Surgical History History of colonoscopy History of esophagogastroduodenoscopy (EGD) History of cataract extraction History of right cataract extraction ( 02/2023) S/P skin biopsy History of lumpectomy of right breast (01/15/19) History of breast biopsy (12/2018) History of ankle surgery History of tubal ligation Hx of cholecystectomy Family History Mother Heart disease Breast cancer PER PATIENT MOTHER DID NOT HAVE BREAST CANCER Aunt Breast cancer Sister Breast cancer Asthma Father Colon cancer Brother Colon cancer Other Cancer Social History household members: spouse and children housing: house number of children: 6 Smoking Status: Never smoker second hand exposure: No alcohol intake: never substance use type: does not use caffeine: No emanuel/temple: Holiness seatbelt use: always do you feel safe at home: Yes HPI HPI Chief Complaint: dysphagia Details: WINIFRED VÁSQUEZ, is a 73 F who presents to the office today for establishment with [facility]. Pt has had a year of difficulty swallowing after starting Ozempic. Pt discontinued ozempic in August 2023 but continues to have problems. She lost about 15 lbs over the past two months due to decreased PO intake. She is able to swallow liquids with no problems but solids feel stuck in her esophagus. She will eat a few bites then have to stop and wait for the food to pass. She did have an EGD and colonoscopy back in August 2024 which did not show any abnormalities. She did also have a normal barium esophagram. She increased her omeprazole to 40 mg BID about 2 weeks ago which has not helped much. She is also having abd pain and nausea after eating. She denies constipation, diarrhea, or blood in her stool. Colonoscopy 09.21.24; - The entire examined colon is normal on direct and retroflexion views. - No specimens collected. EGD 09.21.24; - Normal esophagus. - Normal stomach. - Normal examined duodenum. - No specimens collected. ROS Const Constitutional: No fatigue, fever(s) or weight change ENT ENT: Positive for difficulty swallowing Gastro GI: Positive for difficulty swallowing; No abdominal pain, belching, bloating, change in bowel habits, change in stool character, coffee ground emesis, constipation, cramping, diarrhea, heartburn, feeling full early, excessive flatus, incontinent of stools, Vomiting blood/hematemesis, Blood in stool, loose stools, Black,tarry stools, nausea/dyspepsia, pain with swallowing, vomiting or other Musc Musculoskeletal: Positive for joint pain, stiffness, Arthritis, restless legs and leg pain at night Skin Skin: No yellowing of the eye or itchy eyes Neuro Neurology: Positive for restless legs (more content not included)... Normal [facility] GARFIELD Comprehensive Panelon GARFIELD TABLE Comment Normal . [facility] Comment on above: Result Comment: Auto antibody Disease Association Condition Frequency --------- Antinuclear Antibody, SLE, mixed connective Direct (GARFIELD-D) tissue diseases --------- dsDNA SLE 40 - 60% --------- Chromatin Drug induced SLE 90% SLE 48 - 97% --------- SSA (Ro) SLE 25 - 35% Sjogren's Syndrome 40 - 70% Lupus 100% --------- SSB (La) SLE 10% Sjogren's Syndrome 30% --------- Sm (anti-Ziegler) SLE 15 - 30% --------- EXAMINATION GRADER Mixed Connective Tissue Disease 95% (U1 nRNP, SLE 30 - 50% anti-ribonucleoprotein) Polymyositis and/or Dermatomyositis 20% --------- Scl-70 (antiDNA Scleroderma (diffuse) 20 - 35% topoisomerase) Crest 13% --------- Ysabel-1 Polymyositis and/or Dermatomyositis 20 - 40% --------- Centromere B Scleroderma - Crest variant 80% Performed at: - [address] [id number] Communications Project Manager: Claude Jay PhD, Phone: [phone] Performed By: #### L 9621.6457, B918.6236, L100.6340, L500.0208 #### [facility] Laboratory [address] [place], [place] [address], [place], [address] Absolute neutrophil countOrd ered By: [facility] Lucita Agarwal on 11-03-2024 Neutrophils (Bld) [#/Vol] 3.9 10*3/uL 2.0-7.[address] [facility] Albumin to globulin ratioOrd ered By: [facility] on 11-03-2024 Albumin/Globulin [Mass ratio] 0.9 {ratio} 0.9-2.[address] [facility] Basophil percentageOrdered B y: [facility] on 11-03-2024 Basophils/100 WBC (Bld) 0.5 % 0-[address] [facility] Bilirubin, totalOrdered By: [facility] on 11-03-2024 Bilirubin [Mass/Vol] 1.30 mg/dL High 0.20-1.00 [facility] Comment on above: For patients on eltr ombopag therapy, use of Dimension Noti TBIL is not recommended. Blood urea nitrogen (BUN)/cr eatinine ratioOrdered By: [facility] on 11-03-2024 Urea nitrogen/Creatinine [Mass ratio] 25.8 mg/mg High 10-[address] [facility] CBC W/Diff, Automatedon Absolute Lymph 2.76 X10 3/uL Normal 0.83-4.[address] [facility] Comment on above: Performed By: #### L 3100.5440, L500.4100, L100.0100, L500.4050 #### [facility] [address] [place], [address] Absolute Neut 3.9 X10 3/uL Normal 2.0-7.[address] [facility] Comment on above: Performed By: #### L 3100.5440, L500.4100, L100.0100, L500.4050 #### [facility] [address] [place], [address] Basophils/100 WBC (Bld) 0.5 % Normal 0-[address] [facility] Comment on above: Performed By: #### L 3100.5440, L500.4100, L100.0100, L500.4050 #### [facility] [address] [place], [address] Eosinophils/100 WBC (Bld) 4.3 % Normal 0-[address] [facility] Comment on above: Performed By: #### L 3100.5440, L500.4100, L100.0100, L500.4050 #### [facility] [address] [place], [address] Erythrocyte distribution width (RBC) [Ratio] 13.4 % Normal 11.6-14.[address] [facility] Comment on above: Performed By: #### L 3100.5440, L500.4100, L100.0100, L500.4050 #### [facility] [address] [place], [address] Hematocrit (Bld) [Volume fraction] 40.9 % Normal 37-[address] [facility] Comment on above: Performed By: #### L 3100.5440, L500.4100, L100.0100, L500.4050 #### [facility] [address] [place], [address] Hemoglobin (Bld) [Mass/Vol] 13.9 g/dL Normal 12.0-15.[address] [facility] Comment on above: Performed By: #### L 3100.5440, L500.4100, L100.0100, L500.4050 #### [facility] [address] [place], [address] IG% 0.400 Normal 0.0-0.[address] [facility] Comment on above: Result Comment: IG% - Immature Granulocytes (promyelocytes, myelocytes and metamyelocytes) > 1% indicates that a LEFT SHIFT is Present. Performed By: #### L 3100.5440, L500.4100, L100.0100, L500.4050 #### [facility] [address] [place], [address] Lymphocytes/100 WBC (Bld) 36.3 % Normal 19-[address] [facility] Comment on above: Performed By: #### L 3100.5440, L500.4100, L100.0100, L500.4050 #### [facility] [address] [place], [address] MCH (RBC) [Entitic mass] 30.0 pg Normal 27.0-32.[address] [facility] Comment on above: Performed By: #### L 3100.5440, L500.4100, L100.0100, L500.4050 #### [facility] [address] [place], [address] MCHC (RBC) [Mass/Vol] 34.0 g/dL Normal 32-36 [facility] Comment on above: Performed By: #### L 3100.5440, L500.4100, L100.0100, L500.4050 #### [facility] [address] [place], [address] MCV (RBC) [Entitic vol] 88.1 fL Normal 81-[address] [facility] Comment on above: Performed By: #### L 3100.5440, L500.4100, L100.0100, L500.4050 #### [facility] [address] [place], [address] Monocytes/100 WBC (Bld) 7.5 % Normal 0-[address] [facility] Comment on above: Performed By: #### L 3100.5440, L500.4100, L100.0100, L500.4050 #### [facility] [address] [place], [address] Neutrophils/100 WBC (Bld) 51.0 % Normal 47-[address] [facility] Comment on above: Performed By: #### L 3100.5440, L500.4100, L100.0100, L500.4050 #### [facility] [address] [place], [address] Nucleated RBC (Bld) [#/Vol] 0 10*3/uL Normal 0-[address] [facility] Comment on above: Performed By: #### L 3100.5440, L500.4100, L100.0100, L500.4050 #### [facility] [address] [place], [address] Platelet mean volume (Bld) [Entitic vol] 10.8 fL Normal 6.2-12.[address] [facility] Comment on above: Performed By: #### L 3100.5440, L500.4100, L100.0100, L500.4050 #### [facility] [address] [place], [address] Platelets (Bld) [#/Vol] 161 10*3/uL Normal 150-[address] [facility] Comment on above: Performed By: #### L 3100.5440, L500.4100, L100.0100, L500.4050 #### [facility] [address] [place], [address] RBC (Bld) [#/Vol] 4.64 10*6/uL Normal 4.2-5.4 [facility] Comment on above: Performed By: #### L 3100.5440, L500.4100, L100.0100, L500.4050 #### [facility] [address] [place], [address] RDW SD 43.2 fl Normal 35.1-43.[address] [facility] Comment on above: Performed By: #### L 3100.5440, L500.4100, L100.0100, L500.4050 #### [facility] [address] [place], [address] WBC (Bld) [#/Vol] 7.6 10*3/uL Normal 4.4-11.0 [facility] Comment on above: Performed By: #### L 3100.5440, L500.4100, L100.0100, L500.4050 #### [facility] [address] [place], [place], [address] Carbon dioxide measurementOr dered By: [facility] Lucita Agarwal on 11-03-2024 CO2 [Moles/Vol] 26.0 mmol/L 21.0-32.[address] [facility] Centromere B antibody assayO rdered By: [facility] Lucita Agarwal on 11-03-2024 Centromere B Antibody <0.2 AI 0.0-0.9 [facility] Comment on above: Previous reported re sult: TNP AIEdited by: RIAZ on 11/04/24:1008 AMENDED REPORT 11/04/24 1008 ANTI-CENT B previously reported as: Test not performed Chloride measurementOrdered By: [facility] Lucita Agarwal on 11-03-2024 Chloride [Moles/Vol] 105 mmol/L 98-107 [facility] Chromatin antibody assayOrde red By: [facility] Lucita Agarwal on 11-03-2024 Antichromatin Antibodies <0.2 AI 0.0-0.[address] [facility] Comment on above: Previous reported re sult: TNP AIEdited by: RIAZ on 11/04/24:1008 AMENDED REPORT 11/04/24 1008 ANTICHROMATIN previously reported as: Test not performed Comprehensive Metabolic Prof ilon 11-03-2024 Albumin [Mass/Vol] 3.5 g/dL Normal 3.2-5.0 [facility] Comment on above: Performed By: #### L 3100.5440, L500.4100, L100.0100, L500.4050 ####[facility] [address] [place], [place], [address] Albumin/Globulin [Mass ratio] 0.9 {ratio} Normal 0.9-2.[address] [facility] Comment on above: Performed By: #### L 3100.5440, L500.4100, L100.0100, L500.4050 ####[facility] [address] [place], [address] ALK P 87 U/L Normal 45-[address] [facility] Comment on above: Performed By: #### L 3100.5440, L500.4100, L100.0100, L500.4050 ####[facility] [address] [place], [address] ALT [Catalytic activity/Vol] 18 U/L Normal 13-[address] [facility] Comment on above: Performed By: #### L 3100.5440, L500.4100, L100.0100, L500.4050 ####[facility] [address] [place], [address] AST [Catalytic activity/Vol] 21 U/L Normal 15-[address] [facility] Comment on above: Performed By: #### L 3100.5440, L500.4100, L100.0100, L500.4050 ####[facility] [address] [place], [address] Bilirubin [Mass/Vol] 1.30 mg/dL High 0.20-1.00 [facility] Comment on above: Result Comment: For patients on eltrombopag therapy, use of Dimension Noti TBIL is not recommended. Performed By: #### L 3100.5440, L500.4100, L100.0100, L500.4050 ####[facility] [address] [place], [address] BUN/CRE 25.8 RATIO High 10-[address] [facility] Comment on above: Performed By: #### L 3100.5440, L500.4100, L100.0100, L500.4050 ####[facility] [address] [place], [address] CA,Total 9.3 mg/dL Normal 8.5-10.[address] [facility] Comment on above: Performed By: #### L 3100.5440, L500.4100, L100.0100, L500.4050 ####[facility] [address] [place], [address] Chloride [Moles/Vol] 105 mmol/L Normal 98-107 [facility] Comment on above: Performed By: #### L 3100.5440, L500.4100, L100.0100, L500.4050 ####[facility] [address] [place], [address] CO2 [Moles/Vol] 26.0 mmol/L Normal 21.0-32.[address] [facility] Comment on above: Performed By: #### L 3100.5440, L500.4100, L100.0100, L500.4050 ####[facility] [address] [place], [address] Creatinine [Mass/Vol] 0.70 mg/dL Normal 0.55-1.02 [facility] Comment on above: Result Comment: The validity of the calculated GFR GFRAA in patients over 70 years has not been determined. Clinical correlation is essential. Performed By: #### L 3100.5440, L500.4100, L100.0100, L500.4050 ####[facility] [address] [place], [address] EST GFR - AA 105 mL/min Normal >[address] [facility] Comment on above: Result Comment: Afri can Hungarian GFR Calc Performed By: #### L 3100.5440, L500.4100, L100.0100, L500.4050 ####[facility] [address] [place], [address] GAP 8 Normal 5-[address] [facility] Comment on above: Performed By: #### L 3100.5440, L500.4100, L100.0100, L500.4050 ####[facility] [address] [place], [address] GFR/1.73 sq M.predicted among non-blacks MDRD (S/P/Bld) [Vol rate/Area] 87 mL/min/{1.73_m2} Normal >[address] [facility] Comment on above: Result Comment: Non- GFR Calc Performed By: #### L 3100.5440, L500.4100, L100.0100, L500.4050 ####[facility] [address] [place], [address] Globulin (S) [Mass/Vol] 3.8 g/dL Normal 2.2-4.[address] [facility] Comment on above: Performed By: #### L 3100.5440, L500.4100, L100.0100, L500.4050 ####[facility] [address] [place], [address] Glucose [Mass/Vol] 105 mg/dL Normal 74-106 [facility] Comment on above: Result Comment: Fast ing Glucose result from 100 to 125 mg/dL suggests IMPAIRED HOMEOSTASIS per A.D.A. criteria. Performed By: #### L 3100.5440, L500.4100, L100.0100, L500.4050 ####[facility] [address] [place], [address] Potassium [Moles/Vol] 3.8 mmol/L Normal 3.5-5.1 [facility] Comment on above: Performed By: #### L 3100.5440, L500.4100, L100.0100, L500.4050 ####[facility] [address] [place], [address] Sodium [Moles/Vol] 139 mmol/L Normal 136-145 [facility] Comment on above: Performed By: #### L 3100.5440, L500.4100, L100.0100, L500.4050 ####[facility] [address] [place], [address] T PROT 7.3 g/dL Normal 6.4-8.[address] [facility] Comment on above: Performed By: #### L 3100.5440, L500.4100, L100.0100, L500.4050 ####[facility] [address] [place], [address] Urea nitrogen [Mass/Vol] 18 mg/dL Normal 7-[address] [facility] Comment on above: Performed By: #### L 3100.5440, L500.4100, L100.0100, L500.4050 ####[facility] [address] [place], [address] DNA double strand Ab Qn (S)O rdered By: [facility] Lucita Agarwal on 11-03-2024 Anti-Double Strand DNA Antibody 1 IU/mL 0-[address] [facility] Comment on above: Negative <5 Equivoca l 5 - 9 Positive >9Previous reported result: TNP IU/mLEdited by: RIAZ on 11/04/24:1008 AMENDED REPORT 11/04/24 1008 dsDNA AB previously reported as: Test not performed Eosinophil percentageOrdered By: [facility] Lucita Agarwal on 11-03-2024 Eosinophils/100 WBC (Bld) 4.3 % 0-[address] [facility] Erythrocyte distribution wid th ratioOrdered By: [facility] Lucita Agarwal on 11-03-2024 Erythrocyte distribution width (RBC) [Ratio] 13.4 % 11.6-14.[address] [facility] Erythrocyte distribution wid th standard deviationOrdered By: [facility] Lucita Agarwal on 11-03-2024 Erythrocyte distribution width (RBC) [Entitic vol] 43.2 fL 35.1-43.[address] [facility] Estimated glomerular filtrat ion rate (GFR) AmericanOrdered By: [facility] Lucita Agarwal on 11-03-2024 Estimated GFR (MDRD) Amer 105 mL/min >[address] [facility] Comment on above: GFR Calc Glomerular filtration rate ( GFR) estimationOrdered By: [facility] Lucita Agarwal on 11-03-2024 Estimated GFR (MDRD) Non-Af Amer 87 mL/min >[address] [facility] Comment on above: Non- GFR Calc Glucose measurementOrdered B y: [facility] Lucita Stefano on 11-03-2024 Glucose [Mass/Vol] 105 mg/dL 74-106 [facility] Comment on above: Fasting Glucose resu lt from 100 to 125 mg/dL suggests IMPAIRED HOMEOSTASIS per A.D.A. criteria. Hematocrit Auto (Bld) [Volum e fraction]Ordered By: [facility] Lucita Stefano on 11-03-2024 Hematocrit (Bld) [Volume fraction] 40.9 % 37-[address] [facility] Hemoglobin measurementOrdere d By: [facility] Lucita Stefano on 11-03-2024 Hemoglobin (Bld) [Mass/Vol] 13.9 g/dL 12.0-15.[address] [facility] High density lipoprotein (HD L) measurementOrdered By: [facility] Lucita Stefano on 11-03-2024 Cholesterol in HDL [Mass/Vol] 44 mg/dL >[address] [facility] Comment on above: The drugs N-Acetylcy steine and Metamizole may falsely depress this assay. Reference Range HDL <40 mg/dL Low HDL Cholesterol HDL >or= 60 mg/dL High HDL Cholesterol Immature granulocytes/100 WB C Auto (Bld)Ordered By: [facility] Lucita Stefano on 11-03-2024 Immature granulocytes/100 WBC (Bld) 0.400 % 0.0-0.[address] [facility] Comment on above: IG% - Immature Granu locytes (promyelocytes, myelocytes and metamyelocytes) > 1% indicates that a LEFT SHIFT is Present. Ysabel-1 antibody assayOrdered B y: [facility] Lucita Stefano on 11-03-2024 YSABEL-1 Antibody <0.2 AI 0.0-0.[address] [facility] Comment on above: Previous reported re sult: TNP AIEdited by: RIAZ on 11/04/24:1008 AMENDED REPORT 11/04/24 1008 ANTI-YSABEL previously reported as: Test not performed Laboratory - Chemistry and C hemistry - challengeOrdered By: [facility] Lucita Agarwal on 11-03-2024 AST [Catalytic activity/Vol] 21 U/L 15-[address] [facility] Lipid Profileon 11-03-2024 Cholesterol [Mass/Vol] 150 mg/dL Normal 200 [facility] Comment on above: Result Comment: <200 mg/dL Desirable 200-240 mg/dL Borderline >240 mg/dL High Risk Performed By: #### L 3100.5440, L500.4100, L100.0100, L500.4050 ####[facility] [address] [place], [address] Cholesterol in HDL [Mass/Vol] 44 mg/dL Normal [facility] Comment on above: Result Comment: The drugs N-Acetylcysteine and Metamizole may falsely depress this assay. Reference Range HDL <40 mg/dL Low HDL Cholesterol HDL >or= 60 mg/dL High HDL Cholesterol Performed By: #### L 3100.5440, L500.4100, L100.0100, L500.4050 ####[facility] [address] [place], [address] Cholesterol in LDL [Mass/Vol] 82 mg/dL Normal 0-[address] [facility] Comment on above: Performed By: #### L 3100.5440, L500.4100, L100.0100, L500.4050 ####[facility] [address] [place], [address] Cholesterol in VLDL [Mass/Vol] 24 mg/dL Normal 5-[address] [facility] Comment on above: Performed By: #### L 3100.5440, L500.4100, L100.0100, L500.4050 ####[facility] [address] [place], [address] Triglyceride [Mass/Vol] 118 mg/dL Normal [facility] Comment on above: Result Comment: The drugs N-Acetylcysteine and Metamizole may falsely depress this assay. Serum Triglycerides Reference Interval Normal <150 mg/dL Borderline high 150 - 199 mg/dL High 200 - 499 mg/dL Very High > or = 500 mg/dL Performed By: #### L 3100.5440, L500.4100, L100.0100, L500.4050 ####[facility] [address] [place], [address] Low density lipoprotein (LDL ) cholesterol measurementOrdered By: [facility] Lucita Agarwal on 11-03-2024 Cholesterol in LDL [Mass/Vol] 82 mg/dL 0-[address] [facility] Lymphocytes Auto (Unsp spec) [#/Vol]Ordered By: [facility] Lucita Agarwal on 11-03-2024 Lymphocytes (Bld) [#/Vol] 2.76 10*3/uL 0.83-4.[address] [facility] Lymphocytes/100 WBC Auto (Un sp spec)Ordered By: [facility] Lucita Agarwal on 11-03-2024 Lymphocytes/100 WBC (Bld) 36.3 % 19-[address] [facility] MCV (mean corpuscular volume ) determinationOrdered By: [facility] Lucita Agarwal on 11-03-2024 MCV (RBC) [Entitic vol] 88.1 fL 81-[address] [facility] Mean corpuscular hemoglobin (MCH) determinationOrdered By: [facility] Lucita Agarwal on 11-03-2024 MCH (RBC) [Entitic mass] 30.0 pg 27.0-32.[address] [facility] Mean corpuscular hemoglobin concentration (MCHC) determinationOrdered By: [facility] Lucita Agarwal on 11-03-2024 MCHC (RBC) [Mass/Vol] 34.0 g/dL 32-36 [facility] Mean platelet volume determi nationOrdered By: [facility] Lucita Agarwal on 11-03-2024 Platelet mean volume (Bld) [Entitic vol] 10.8 fL 6.2-12.[address] [facility] Monocyte percentageOrdered B y: [facility] Lucita Agarwal on 11-03-2024 Monocytes/100 WBC (Bld) 7.5 % 0-[address] [facility] Neutrophil percentageOrdered By: [facility] Lucita Agarwal on 11-03-2024 Neutrophils/100 WBC (Bld) 51.0 % 47-[address] [facility] No Panel InformationOrdered By: [facility] Lucita Agarwal on 11-03-2024 Miscellaneous Test See comment [facility] Comment on above: TEST RESULTS LIMITSS jogren's Profile Plus (RDL) Anti-Ro (SS-A) Ab (RDL) <20 Units <20 Anti-La (SS-B) Ab (RDL) <20 Units <20 Anti-Fodrin Ab, IgG (RDL), <10 Units <10 Anti-Fodrin Ab, IgA (RDL), <10 Units <10 Interpretation for Anti-Ro, Anti-La: Negative: <20 Weak Positive: 20 - 39 Moderate Positive: 40 - 80 Strong Positive: >80 Anti-Fodrin antibodies are associated with Sjogren's Syndrome and may occur in Nfwi-Oh-vwaovwkc Sjogren's (Dean T et al. J Rheumatol 2003;30:6302-5164). TESTING PERFORMED AT [facility]. ORIGINAL REPORT ON FILE IN LAB CONTAINS ADDITIONAL TEST SITE INFORMATION. Nucleated red blood cell per centageOrdered By: KRYSTIAN Agarwal on 11-03-2024 Nucleated RBC/100 WBC (Bld) [Ratio] 0 % 0-[address] [facility] Platelet countOrdered By: MAU Agarwal on 11-03-2024 Platelets (Bld) [#/Vol] 161 10*3/uL 150-[address] [facility] Potassium measurementOrdered By: KRYSTIAN Agarwal on 11-03-2024 Potassium [Moles/Vol] 3.8 mmol/L 3.5-5.1 [facility] RBC Auto (Bld) [#/Vol]Ordere d By: [facility] Lucita Agarwal on 11-03-2024 RBC (Bld) [#/Vol] 4.64 10*6/uL 4.2-5.4 [facility] EXAMINATION GRADER abOrdered By: [facility] Jose David Agarwal on 11-03-2024 EXAMINATION GRADER Antibody <0.2 AI 0.0-0.[address] [facility] Comment on above: Previous reported re sult: TNP AIEdited by: RIAZ on 11/04/24:1008 AMENDED REPORT 11/04/24 1008 EXAMINATION GRADER Ab previously reported as: Test not performed SCL-70 extractable nuclear A b Qn (S)Ordered By: [facility] Lucita Agarwal on 11-03-2024 Scl-70 (Scleroderma) Antibody <0.2 AI 0.0-0.[address] [facility] Comment on above: Previous reported re sult: TNP AIEdited by: RAIZ on 11/04/24:1008 AMENDED REPORT 11/04/24 1008 ANTISCLER previously reported as: Test not performed SS-A IgG antibody assayOrder ed By: [facility] Lucita Agarwal on 11-03-2024 SS-A/Ro IgG Antibody < 0.2 AI 0.0-0.9 [facility] Comment on above: Previous reported re sult: TNP AIEdited by: RIAZ on 11/04/24:1008 AMENDED REPORT 11/04/24 1008 Anti-SS-A previously reported as: Test not performed SS-B IgG antibody assayOrder ed By: [facility] Lucita Agarwal on 11-03-2024 SS-B/La IgG Antibody < 0.2 AI 0.0-0.9 [facility] Comment on above: Previous reported re sult: TNP AIEdited by: RIAZ on 11/04/24:1008 AMENDED REPORT 11/04/24 1008 Anti-SS-B previously reported as: Test not performed Serum anion gap measurementO rdered By: [facility] Lucita Agarwal on 11-03-2024 Anion gap [Moles/Vol] 8 mmol/L 5-15 [facility] Serum globulin measurementOr dered By: [facility] Lucita Agarwal on 11-03-2024 Globulin (S) [Mass/Vol] 3.8 g/dL 2.2-4.[address] [facility] Serum or plasma alanine campbell otransferase (ALT) measurementOrdered By: [facility] Stefano on 11-03-2024 ALT [Catalytic activity/Vol] 18 U/L 13-[address] [facility] Serum or plasma albumin jackie urement (mass/volume)Ordered By: [facility] Stefano on 11-03-2024 Albumin [Mass/Vol] 3.5 g/dL 3.2-5.0 [facility] Serum or plasma alkaline clemetne sphatase measurementOrdered By: [facility] Stefano on 11-03-2024 ALP [Catalytic activity/Vol] 87 U/L 45-[address] [facility] Serum or plasma calcium jackie urement (mass/volume)Ordered By: [facility] Health[facility] Stefano on 11-03-2024 Calcium [Mass/Vol] 9.3 mg/dL 8.5-10.1 [facility] Serum or plasma cholesterol measurement (mass/volume)Ordered By: [facility] Stefano on 11-03-2024 Cholesterol [Mass/Vol] 150 mg/dL <200 [facility] Comment on above: <200 mg/dL Desirable 200-240 mg/dL Borderline >240 mg/dL High Risk Serum or plasma creatinine m easurement (mass/volume)Ordered By: [facility] Stefano on 11-03-2024 Creatinine [Mass/Vol] 0.70 mg/dL 0.55-1.02 [facility] Comment on above: The validity of the calculated GFR & GFRAA in patients over 70 years has not been determined. Clinical correlation is essential. Serum or plasma urea nitroge n measurement (mass/volume)Ordered By: [facility] Stefano on 11-03-2024 Urea nitrogen [Mass/Vol] 18 mg/dL 7-[address] [facility] Ziegler antibody assayOrdered By: [facility] Stefano on 11-03-2024 SM Antibody <0.2 AI 0.0-0.[address] [facility] Comment on above: Previous reported re sult: TNP AIEdited by: RIAZ on 11/04/24:1008 AMENDED REPORT 11/04/24 1008 ZIEGLER Ab previously reported as: Test not performed Sodium levelOrdered By: [facility] Lucita Agarwal on 11-03-2024 Sodium [Moles/Vol] 139 mmol/L 136-145 [facility] Total proteinOrdered By: [facility] Lucita Agarwal on 11-03-2024 Protein [Mass/Vol] 7.3 g/dL 6.4-8.2 [facility] Triglycerides measurementOrd ered By: [facility] Lucita Agarwal on 11-03-2024 Triglyceride [Mass/Vol] 118 mg/dL <[address] [facility] Comment on above: The drugs N-Acetylcy steine and Metamizole may falsely depress this assay.Serum Triglycerides Reference Interval Normal <150 mg/dL Borderline high 150 - 199 mg/dL High 200 - 499 mg/dL Very High > or = 500 mg/dL Very low density lipoprotein (VLDL) cholesterol measurementOrdered By: [facility] Lucita Agarwal on 11-03-2024 VLDL Cholesterol 24 mg/dL 5-[address] [facility] White blood cell (WBC) count Ordered By: [facility] Lucita Agarwal on 11-03-2024 WBC (Bld) [#/Vol] 7.6 10*3/uL 4.4-11.0 [facility] 12 Lead E[place] performed [place] [facility] [place] 09-28-2024 12 Lead EKG performed by [facility] [address] [place] [address] 12 Lead EKG performed [place] [facility] 09/28/24 1516 MR#: [id number] Acct: [id number] Name: WINIFRED VÁSQUEZ Rep #: [id number] : 1950 73 From: Rhett Perry MEDICAL OFFICE ADMINISTRATOR MEDICAL OFFICE ADMINISTRATOR-C Attending Dr: Rhett Perry NP-C Status: DEP AMB Ordering Dr: Rhett Perry MEDICAL OFFICE ADMINISTRATOR MEDICAL OFFICE ADMINISTRATOR-C Date: 09/28/24 [place] [facility] Sex: F C Admitted: [facility]12 Lead EKG performed by [facility] ECG Report Interpretation atrial fibrillation -Nonspecific ST depression -Nondiagnostic. ABNORMAL Electronically signed on 10/01/2024 at 16:39 by Stewart Newman Software Version [id number] 10/01/24 1643 Date Rhett BREWER CC: KRYSTIAN Agarwal Date Dictated: 09/28/241515 Date Transcribed: 09/28/241515 Installation And Repair Technician: CHAPARRITA Signed Normal [facility] Cardiology Visit Reporton Cardiology Visit Report [facility] [address] [place] [address] OFFICE VISIT Date of Service: 09/28/24 MR#: [id number] Acct: [id number] Name: WINIFRED VÁSQUEZ Rep #: [id number] : 1950 Provider: OSMAN robbins Age/Sex: 73/F [place] [facility] Status: Signed HPI HPI History of Present Illness Details: WINIFRED VÁSQUEZ, is a 73 F who presents to the office today a cardiovascular follow-up.??? She has a history of bradycardia, palpitations and hypertension.??? She was diagnosed with right breast carcinoma. She did undergo radiation. She was also diagnosed with melanoma. In August 2024, she was undergoing screening colonoscopy and EGD and noted to be in atrial fibrillation at a controlled rate of 72 bpm. She was started on oral anticoagulation. She denies chest, arm, jaw, or neck discomfort. She states palpitations that she describes as fluttering. She continues with bilateral lower extremity edema. She denies claudication. She continues with shortness of breath with activity. She denies shortness of breath at rest, orthopnea, or PND. She denies chronic cough. She denies significant, sudden weight gain. She acknowledges dizziness. She denies lightheadedness, near-syncope, or syncope. She denies blood in urine, blood in stool, or epistaxis. He denies fever with chills. She denies myalgia. She states fatigue. Her exercise level has remained stable. Overall, she states feeling much better than previous. Intake Vital Signs 09/21/24 07:10 09/28/24 15:16 Height 4 ft 11 in 4 ft 11 in Weight: 211 lb BMI 42.6 BP 126/66 H Blood Pressure Location Lt brachial Position Sitting Respiration 16 Pulse 49 L Pulse Source NIBP Intake Visit Reasons: AFIB/ See Clinical Note Operations [place] Required: No Is patient in pain?: No Allergies adhesive tape (plastic tape) Adverse Reaction (Severe, Verified 09/28/24 15:23) Other cephalexin Adverse Reaction (Severe, Verified 09/28/24 15:23) Rash clindamycin Adverse Reaction (Severe, Verified 09/28/24 15:23) Rash Penicillins Adverse Reaction (Severe, Verified 09/28/24 15:23) Rash Sulfa (Sulfonamide Antibiotics) Adverse Reaction (Severe, Verified 09/28/24 15:23) Rash Medications ???Medication ???Instructions ???Recorded ???Confirmed ???Type aspirin 81 mg tablet,delayed 81 mg PO DAILY@0800 health 06/11/17 09/28/24 History release maintenance montelukast 10 mg tablet 10 mg PO DAILY allergies 06/11/17 09/28/24 History albuterol sulfate 90 mcg/actuation 2 puff inhalation Q4H PRN PRN Sob 08/23/17 09/28/24 Rx aerosol inhaler /Or Wheezing ##1 ascorbate calcium (vitamin C) 500 1 gm PO DAILY Check with primary 02/14/21 09/28/24 History mg tablet doctor fexofenadine 180 mg tablet 180 mg PO DAILY PRN allergy 02/14/21 09/28/24 History (Rubi Allergy) symptoms pravastatin 40 mg tablet 40 mg PO QHS Check with primary 02/14/21 09/28/24 History doctor atenolol 50 mg tablet 50 mg PO DAILY Check with primary 10/04/21 09/28/24 History doctor hydrochlorothiazide 25 mg tablet 25 mg PO DAILY 04/22/22 09/28/24 History lisinopril 40 mg tablet 40 mg PO DAILY 04/22/22 09/28/24 History omeprazole 20 mg capsule,delayed 20 mg PO DAILY Check with primary 04/22/22 09/28/24 History release doctor biotin 1,000 mcg chewable tablet 1,000 mcg PO DAILY 01/23/23 09/28/24 History propylene glycol (PF) 0.6 % eye 1 drp ophthalmic (eye) TID 01/23/23 09/28/24 History drops (Systane Complete PF) oxybutynin chloride 10 mg 10 mg PO DAILY 09/04/23 09/28/24 History tablet,extended release 24 hr meloxicam 15 mg tablet 15 mg PO DAILY 09/16/23 09/28/24 History metformin 500 mg tablet,extended 500 mg PO DAILY 09/16/23 09/28/24 History release 24 hr apixaban 5 mg tablet (Eliquis) 5 mg PO BID #60 tabs 09/22/24 09/28/24 Rx amlodipine 5 mg tablet 5 mg PO QDAY 09/28/24 09/28/24 History calcium 200 mg (as tab PO 09/28/24 09/28/24 History carbonate)-magnesium 100 mg chewable tablet (Riley-Mag) cholecalciferol (vitamin D3) 25 25 mcg PO QDAY 09/28/24 09/28/24 History mcg (1,000 unit) tablet cyanocobalamin (vitamin B-12) 1,000 mcg PO QDAY 09/28/24 09/28/24 History 1,000 mcg tablet fluticasone 500 mcg-salmeterol 50 1 ea inhalation BID PRN Sob /Or 09/28/24 History mcg/dose blistr powdr for Wheezing inhalation magnesium oxide PO 09/28/24 09/28/24 History Ejection fraction %: 60 Have you fallen in the past year?: Yes (Trip and fall) PFSH Medical History Wears glasses Cancer Diabetes Arthritis High cholesterol Non-smoker CPAP (continuous positive airway pressure) dependence Sleep apnea Shortness of breath on exertion History of edema History of stress test Cardiology follow-up encounter History of e (more content not included)... Normal [facility] 12 Lead EKGon 09-21-2024 12 Lead EKG [facility] Cardiovascular Services [address] [place] [address] 12 Lead EKG 09/21/24 0727 MR#: [id number] Acct: [id number] Name: WINIFRED VÁSQUEZ Rep #: [id number] : 1950 73 From: Elijah Gold MD Attending Dr: Dr. Eder Castano MD Status: DEP SDC Ordering Dr: Eduar Turcios MD Date: 09/21/24 Location: EN Sex: F C Admitted: Test Reason : PREOP Blood Pressure : */* mmHG Vent. Rate : 72 BPM Atrial Rate : * BPM P-R Int : * ms QRS Dur : 98 ms QT Int : 410 ms P-R-T Axes : * 50 -20 degrees QTcB Int : 448 ms Atrial fibrillation Nonspecific ST abnormality Abnormal ECG When compared with ECG of 22-Aug-2017 15:47, Atrial fibrillation has replaced Sinus rhythm Non-specific change in ST segment in Inferior leads Confirmed by Elijah Gold ([id number]), index editor LISSET PALMA ([id number]) on 09/22/2024 2:16:14 PM Referred By: Lucita Agarwal Confirmed By: Elijah Gold 09/22/24 1416 Date Elijah Gold MD CC: Katerin MEDICAL OFFICE ADMINISTRATOR-C Lucita Agarwal; Dr. Eder Castano MD; Dr. Eduar Turcios MD Signed Normal [facility] Bedside Glucoseon 09-21-2024 FINGERSTICK GLU 116 mg/dL High 74-[address] [facility] Comment on above: Result Comment: PARRISH LOPEZ OF PATIENT CARE PER NURSING PROTOCOL Performed By: #### L 501.080 ####[facility] [id number] [facility]. [place], [place], [address] Colonoscopy Reporton 024 Colonoscopy Report [facility] Medical Records Department [address] [place] [address] Colonoscopy Report MR#: [id number] Acct: [id number] Name: WINIFRED VÁSQUEZ Rep #: [id number] : 1950 73 From: Eder Castano MD PCP: KRYSTIAN Ledesma, MEDICAL OFFICE ADMINISTRATOR-C Status:[facility] Patient Name: Winifred Vásquez Procedure Date: 09/21/2024 8:49 AM Date of : 1950 Age: 73 Procedure: Colonoscopy Indications: Family history of colon cancer in multiple first-degree relatives Providers: Eder Castano MD Referring MD: Lucita Agarwal [facility], Tape Deck Installer-c Medicines: Propofol per Anesthesia Patient Profile: This is a 73 year old female. Refer to note in patient chart for documentation of history and physical. Last Colonoscopy: 5 years ago. Complications: No immediate complications. Procedure: Pre-Anesthesia Assessment: - Prior to the procedure, a History and Physical was performed, and patient medications and allergies were reviewed. The patient's tolerance of previous anesthesia was also reviewed. The risks and benefits of the procedure and the sedation options and risks were discussed with the patient. All questions were answered, and informed consent was obtained. Prior Anticoagulants: The patient has taken no anticoagulant or antiplatelet agents. After reviewing the risks and benefits, the patient was deemed in satisfactory condition to undergo the procedure. After I obtained informed consent, the scope was passed under direct vision. Throughout the procedure, the patient's blood pressure, pulse, and oxygen saturations were monitored continuously. The Colonoscope was introduced through the anus and advanced to the cecum, identified by appendiceal orifice and ileocecal valve. The colonoscopy was performed without difficulty. The patient tolerated the procedure well. The quality of the bowel preparation was good. The ileocecal valve, appendiceal orifice, and rectum were photographed. Scope In: 8:51:53 AM Scope Withdrawal Time 0 hours 6 minutes 53 seconds Scope Out: 9:07:46 AM Total Procedure Duration Time 0 hours 15 minutes 53 seconds Findings: The entire examined colon appeared normal on direct and retroflexion views. Impression: - The entire examined colon is normal on direct and retroflexion views. - No specimens collected. Recommendation: - Discharge patient to home. - Resume previous diet. - Continue present medications. - No repeat colonoscopy due to age. Procedure Code(s): --- Professional --- 54379, Colonoscopy, flexible; diagnostic, including collection of specimen(s) by brushing or washing, when performed (separate procedure) Diagnosis Code(s): --- Professional --- Z80.0, Family history of malignant neoplasm of digestive organs CPT copyright 2021 [employer]. All rights reserved. The codes documented in this report are preliminary and upon music publicist review may be revised to meet current compliance requirements. Eder Castano MD 09/21/2024 9:11:25 AM This report has been signed electronically. Number of Addenda: 0 Note Initiated On: 09/21/2024 8:49 AM 09/21/24 0911 Date Eder Castano MD Cosigner Signature: Date (if indicated) CC: KRYSTIAN MEDICAL OFFICE ADMINISTRATOR-C Lucita Agarwal; Dr. Eder Castano MD Date Dictated: 09/21/24 0849 Date Transcribed: Installation And Repair Technician: ROGELIO Signed Normal [facility] EGD Reporton 09-21-2024 EGD Report [facility] Medical Records Department [address] [place] [address] EGD Report MR#: [id number] Acct: [id number] Name: WINIFRED VÁSQUEZ Rep #: [id number] : 1950 73 From: Eder Castano MD PCP: KRYSTIAN Ledesma, NIESHAC Status:REG [facility] Patient Name: Winifred Vásquez Procedure Date: 09/21/2024 8:38 AM Date of : 1950 Age: 73 Procedure: Upper GI endoscopy Indications: Dysphagia Providers: Eder Castano MD Referring MD: Lucita Choudhury, Tape Deck Installer-c Medicines: Propofol per Anesthesia Patient Profile: This is a 73 year old female. Refer to note in patient chart for documentation of history and physical. Complications: No immediate complications. Estimated blood loss: Minimal. Procedure: Pre-Anesthesia Assessment: - Prior to the procedure, a History and Physical was performed, and patient medications and allergies were reviewed. The patient's tolerance of previous anesthesia was also reviewed. The risks and benefits of the procedure and the sedation options and risks were discussed with the patient. All questions were answered, and informed consent was obtained. Prior Anticoagulants: The patient has taken no anticoagulant or antiplatelet agents. After reviewing the risks and benefits, the patient was deemed in satisfactory condition to undergo the procedure. After obtaining informed consent, the endoscope was passed under direct vision. Throughout the procedure, the patient's blood pressure, pulse, and oxygen saturations were monitored continuously. The gastroscope was introduced through the mouth, and advanced to the second part of duodenum. The upper GI endoscopy was accomplished without difficulty. The patient tolerated the procedure well. Scope In: 8:47:10 AM Scope Out: 8:49:11 AM Total Procedure Duration Time 0 hours 2 minutes 1 second Findings: The esophagus was normal. The stomach was normal. The examined duodenum was normal. Impression: - Normal esophagus. - Normal stomach. - Normal examined duodenum. - No specimens collected. Recommendation: - Discharge patient to home. - Resume previous diet. - Continue present medications. Procedure Code(s): --- Professional --- 18446, Esophagogastroduodenoscopy, flexible, transoral; diagnostic, including collection of specimen(s) by brushing or washing, when performed (separate procedure) Diagnosis Code(s): --- Professional --- R13.10, Dysphagia, unspecified CPT copyright 2021 [employer]. All rights reserved. The codes documented in this report are preliminary and upon music publicist review may be revised to meet current compliance requirements. Eder Castano MD 09/21/2024 9:09:41 AM This report has been signed electronically. Number of Addenda: 0 Note Initiated On: 09/21/2024 8:38 AM 09/21/24 0909 Date Eder Castano MD Cosigner Signature: Date (if indicated) CC: [facility] MEDICAL OFFICE ADMINISTRATOR-C Lucita Agarwal; Dr. Eder Castano MD Date Dictated: 09/21/24 0838 Date Transcribed: Installation And Repair Technician: AC Signed Normal [facility] Gl[facility] at [facility] deOrdered By: Eder Castano on 09-21-2024 Bedside Glucose (Misc Panel) 116 mg/dL High 74-[address] [facility] Comment on above: MANAGEMENT OF PATIEN T CARE PER NURSING PROTOCOL MR/POSTOP.ANEon 09-21-2024 MR/POSTOP.ANE [facility] Medical Records Department [address] [place] [address] Anesthesia Postop Eval I 09/21/24916 MR#: [id number] Acct: [id number] Name: WINIFRED VÁSQUEZ Dolores Rep #: [id number] : 1950 73 From: Jayden Garvey PCP: KRYSTIAN Ledesma, MEDICAL OFFICE ADMINISTRATOR-C Status:REG SDC Y Race: C Location: [place] [address] Anesthesia: Postop Eval I Current Vital Signs Temperature: 97.4 F Pulse Rate: 80 Blood Pressure: 120/64 Respiratory Rate: 16 Pulse Ox: 98 Oxygen Delivery Method: Room Air Assessment Airway patent: Yes Spontaneous unlabored respirations: Yes Mental status: Asleep nausea: No Vomiting: No Anesthesia Complication: No Fluid Hydration Crystalloid volume administer (ml): 60 Total IV fluid infused: 60 Progress Note Anesthesia document: Postop Eval 1 completed: Yes 09/21/24916 Date Jayden Zuniga Signature: Date CC: Signed Normal [facility] MR/[id number] 09-21-2024 MR/POSTOPAN2 [facility] Medical Records Department [address] [place] [address] Anesthesia Postop Eval II 09/21/24954 MR#: [id number] Acct: [id number] Name: YAYA VÁSQUEZRA Bernal Rep #: [id number] : 1950 73 From: Eduar Turcios MD PCP: KRYSTIAN Ledesma, MEDICAL OFFICE ADMINISTRATOR-C Status:REG SDC Y Race: C Location: [facility] Anesthesia Postop Eval I Sum Postop Eval Completion status Anesthesia document: Postop Eval 1 completed: Yes Anesthesia Postop Eval I Summary Anesthesia Postop Eval I Summary: Anesthesia Postop Eval I: Assessment Summary Airway patent Yes 09/21/24 09:17 [email or web address] Spontaneous unlabored Yes 09/21/24 09:17 [email or web address] respirations Mental status Asleep 09/21/24 09:17 [email or web address] nausea No 09/21/24 09:17 [email or web address] Vomiting No 09/21/24 09:17 [email or web address] Anesthesia Postop Eval I: Fluid Summary Crystalloid volume administer 60 09/21/24 09:17 [email or web address] (ml) Colloids volume administered ( ml) Blood Product volume administered (ml) Total IV fluid infused 60 09/21/24 09:17 [email or web address] Anesthesia Postop Eval I: Summary Notes Anesthesia Complication No 09/21/24 09:17 [email or web address] Anesthesia Complication Comment: Post-operative progress note Anesthesia: Postop Eval II Evaluation Mental status: Awake Pain Level: 0 nausea: No Vomiting: No 09/21/24954 Date Eduar Zuniga Signature: Date CC: Signed Normal [facility] Breast Bilateral W/O and Won 09-01-2024 Breast Bilateral W/O and W [facility] Imaging Services [address] [place] [address] Breast Bilateral W/O and W MR#: [id number] Acct: [id number] Name: WINIFRED VÁSQUEZ Rep #: [id number] : 1950 F 73 From: Jayden Bo MD PCP: KRYSTIAN Ledesma, MEDICAL OFFICE ADMINISTRATOR-C Status: REG CLI Study: Breast Bilateral W/O and W Date of Exam: 09/01 Exam# [id number] Ordering Dr: Candice Rossi MD [id number] STUDY: BILATERAL BREAST MR WITHOUT AND WITH CONTRAST REASON FOR EXAM: Female, 73 years old. History of right breast cancer. High risk. TECHNIQUE: Multi-sequence multi-echo imaging of both breasts was performed with a dedicated breast coil. T1-weighted and T2-weighted images were performed before the administration of contrast. T1-weighted images were also performed after the intravenous administration of 20 cc of Clariscan contrast. COMPARISON: Screening mammogram dated February 2024, prior breast MRI with contrast dated September 03, 2023 and left breast ultrasound dated February 26, 2023 FINDINGS: RIGHT BREAST: Fatty replaced breast tissue with minimal background enhancement. No abnormal enhancing masses or areas of non-mass enhancement in the right breast. LEFT BREAST: Fatty replaced breast tissue with minimal background enhancement. Stable 11 mm in diameter enhancing area at the 12:00 to 1:00 position of the left breast 5 cm from the nipple. This lesion was noted on the breast ultrasound dated February 26, 2023 and has a tissue clip marker within it. No enlarged or abnormal lymph nodes. No abnormality in the visualized regions of the chest or liver. MRI/Breast Bilateral W/O and W IMPRESSION: Stable 11 mm in diameter enhancing lesion in the left breast which may represent a fibroadenoma. Tissue clip marker is noted within this lesion on prior ultrasound. A alternate in screening mammogram and breast MRI with contrast for continued surveillance would be appropriate. CATEGORY: BIRADS Category 2: Benign. A letter regarding these results will be sent to the patient by the facility within 30 days. Electronically Signed: Jayden Bo MD at 9:12 EST Reading Location ID and State: [facility] / [place] , Service support , CC: [facility] OSMAN Agarwal; Dr. Candice Rossi MD Installation And Repair Technician: Signed Normal [facility] Surgery Visit Reporton 08-11 Surgery Visit Report [facility] [address] [place] [address] OFFICE VISIT Date of Service: 08/11/24 MR#: [id number] Acct: [id number] Name: WINIFRED VÁSQUEZ Rep #: [id number] : 1950 Provider: Dr. Eder stallings MD Age/Sex: 73/F Location: [facility] Status: Signed Intake Vital Signs 03/04/24 13:19 08/11/24 09:18 Height 4 ft 11 in 4 ft 11 in Weight: 228 lb 8 oz 223 lb BMI 46.1 45.0 BP 156/71 H 133/78 H Blood Pressure Location Rt brachial Position Sitting Sitting Respiration 18 18 Pulse 46 L 68 Pulse Source Monitor Temp 97.8 F 97.2 F L Temp Source Temporal Pulse Oximetry (%) 98 99 Oxygen Delivery Method room air room air Intake Visit Reasons: COLONOSCOPY, DSYPHAGIA Chief Complaint: colonoscopy/dysphagia Allergies adhesive tape (plastic tape) Adverse Reaction (Severe, Verified 08/11/24 09:20) Other cephalexin Adverse Reaction (Severe, Verified 08/11/24 09:20) Rash clindamycin Adverse Reaction (Severe, Verified 08/11/24 09:20) Rash Penicillins Adverse Reaction (Severe, Verified 08/11/24 09:20) Rash Sulfa (Sulfonamide Antibiotics) Adverse Reaction (Severe, Verified 08/11/24 09:20) Rash Medications ???Medication ???Instructions ???Recorded ???Confirmed ???Type aspirin 81 mg tablet,delayed 81 mg PO DAILY@0800 health 06/11/17 08/11/24 History release maintenance montelukast 10 mg tablet 10 mg PO DAILY allergies 06/11/17 08/11/24 History albuterol sulfate 90 mcg/actuation 2 puff inhalation Q4H PRN PRN Sob 08/23/17 08/11/24 Rx aerosol inhaler /Or Wheezing ##1 fluticasone 500 mcg-salmeterol 50 1 puff inhalation BID PRN Sob /Or 08/23/17 08/11/24 Rx mcg/dose blistr powdr for Wheezing ##1 inhalation ergocalciferol (vitamin D2) 1,250 50,000 unit PO QWEEK bone health 02/10/20 08/11/24 History mcg (50,000 unit) capsule ascorbate calcium (vitamin C) 500 1 gm PO DAILY Check with primary 02/14/21 08/11/24 History mg tablet doctor calcium carbonate (Calcium 600) 600 mg PO DAILY Check with primary 02/14/21 08/11/24 History doctor fexofenadine 180 mg tablet 180 mg PO DAILY Check with primary 02/14/21 08/11/24 History (Rubi Allergy) doctor pravastatin 40 mg tablet 40 mg PO QHS Check with primary 02/14/21 08/11/24 History doctor atenolol 50 mg tablet 50 mg PO DAILY Check with primary 10/04/21 08/11/24 History doctor hydrochlorothiazide 25 mg tablet 25 mg PO DAILY 04/22/22 08/11/24 History lisinopril 40 mg tablet 40 mg PO DAILY 04/22/22 08/11/24 History omeprazole 20 mg capsule,delayed 20 mg PO DAILY Check with primary 04/22/22 08/11/24 History release doctor amlodipine 2.5 mg tablet 2.5 mg PO DAILY 01/23/23 08/11/24 History biotin 1,000 mcg chewable tablet 1,000 mcg PO DAILY 01/23/23 08/11/24 History fluorometholone 0.1 % eye 1 drp ophthalmic (eye) TID 01/23/23 08/11/24 History drops,suspension propylene glycol (PF) 0.6 % eye 1 drp ophthalmic (eye) TID 01/23/23 08/11/24 History drops (Systane Complete PF) oxybutynin chloride 10 mg 10 mg PO DAILY 09/04/23 08/11/24 History tablet,extended release 24 hr meloxicam 15 mg tablet 15 mg PO DAILY 09/16/23 08/11/24 History metformin 500 mg tablet,extended 500 mg PO DAILY 09/16/23 08/11/24 History release 24 hr Have you fallen in the past year?: No PFSH Medical History Asthma Bradycardia Breast cancer, right DCIS (ductal carcinoma in situ) ER+ (estrogen receptor positive status) Essential hypertension 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 cancer Hyperlipidemia Hypertension Nonrheumatic mitral (valve) insufficiency Obesity Obstructive sleep apnea KRISTY (obstructive sleep apnea) Osteoarthritis Osteopenia due to cancer therapy Preoperative cardiovascular examination Skin cancer (melanoma) Type 2 diabetes mellitus Surgical History History of cataract extraction History of right cataract extraction ( 02/2023) S/P skin biopsy History of lumpectomy of right breast (01/15/19) History of breast biopsy (12/2018) History of ankle surgery History of tubal ligation Hx of cholecystectomy Family History Mother Heart disease Breast cancer PER PATIENT MOTHER DID NOT HAVE BREAST CANCER Aunt Breast cancer Sister Breast cancer Asthma Father Colon cancer Brother Colon cancer Other Cancer Social History household members: spouse and children housing: house number of children: 6 Smoking Status: Never smoker second hand exposure: No alcohol intake: never substance use type: does not use caffeine: No emanuel/temple: Holiness seatbelt use: always do yo (more content not included)... Normal [facility] ANTINUCLEAR ANTIBODIES DIREC Ton 08-04-2024 GARFIELD,DIRECT Negative Normal Negative [facility] Comment on above: Result Comment: Perf ormed at: CB - [facility] [address] [id number] Communications Project Manager: Claude Jay PhD, Phone: [phone] Performed By: #### L 957.8215, G6839.4523, L100.0100, L500.0310, L502.0500 ####[facility] [address] [place], [address] CBC W/Diff, Automatedon 10-0 Absolute Lymph 2.30 X10 3/uL Normal 0.83-4.[address] [facility] Comment on above: Performed By: #### L 501.9520, L3100.5475, L100.0100, L500.4050, L502.0500 ####[facility] [address] [place], [address] Absolute Neut 3.7 X10 3/uL Normal 2.0-7.[address] [facility] Comment on above: Performed By: #### L 501.9520, L3100.5475, L100.0100, L500.4050, L502.0500 ####[facility] [address] [place], [address] Basophils/100 WBC (Bld) 0.6 % Normal 0-[address] [facility] Comment on above: Performed By: #### L 501.9520, L3100.5475, L100.0100, L500.4050, L502.0500 ####[facility] [address] [place], [address] Eosinophils/100 WBC (Bld) 2.8 % Normal 0-[address] [facility] Comment on above: Performed By: #### L 501.9520, L3100.5475, L100.0100, L500.4050, L502.0500 ####[facility] [address] [place], [address] Erythrocyte distribution width (RBC) [Ratio] 12.5 % Normal 11.6-14.[address] [facility] Comment on above: Performed By: #### L 501.9520, L3100.5475, L100.0100, L500.4050, L502.0500 ####[facility] [address] [place], [address] Hematocrit (Bld) [Volume fraction] 42.9 % Normal 37-[address] [facility] Comment on above: Performed By: #### L 501.9520, L3100.5475, L100.0100, L500.4050, L502.0500 ####[facility] [address] [place], [address] Hemoglobin (Bld) [Mass/Vol] 13.8 g/dL Normal 12.0-15.[address] [facility] Comment on above: Performed By: #### L 501.9520, L3100.5475, L100.0100, L500.4050, L502.0500 ####[facility] [address] [place], [address] IG% 0.300 Normal 0.0-0.[address] [facility] Comment on above: Result Comment: IG% - Immature Granulocytes (promyelocytes, myelocytes and metamyelocytes) > 1% indicates that a LEFT SHIFT is Present. Performed By: #### L 501.9520, L3100.5475, L100.0100, L500.4050, L502.0500 ####[facility] [address] [place], [address] Lymphocytes/100 WBC (Bld) 33.9 % Normal 19-[address] [facility] Comment on above: Performed By: #### L 501.9520, L3100.5475, L100.0100, L500.4050, L502.0500 ####[facility] [address] [place], [address] MCH (RBC) [Entitic mass] 29.7 pg Normal 27.0-32.[address] [facility] Comment on above: Performed By: #### L 501.9520, L3100.5475, L100.0100, L500.4050, L502.0500 ####[facility] [address] [place], [address] MCHC (RBC) [Mass/Vol] 32.2 g/dL Normal 32-36 [facility] Comment on above: Performed By: #### L 501.9520, L3100.5475, L100.0100, L500.4050, L502.0500 ####[facility] [address] [place], [address] MCV (RBC) [Entitic vol] 92.3 fL Normal 81-[address] [facility] Comment on above: Performed By: #### L 501.9520, L3100.5475, L100.0100, L500.4050, L502.0500 ####[facility] [address] [place], [address] Monocytes/100 WBC (Bld) 7.7 % Normal 0-[address] [facility] Comment on above: Performed By: #### L 501.9520, L3100.5475, L100.0100, L500.4050, L502.0500 ####[facility] [address] [place], [address] Neutrophils/100 WBC (Bld) 54.7 % Normal 47-[address] [facility] Comment on above: Performed By: #### L 501.9520, L3100.5475, L100.0100, L500.4050, L502.0500 ####[facility] [address] [place], [address] Nucleated RBC (Bld) [#/Vol] 0 10*3/uL Normal 0-[address] [facility] Comment on above: Performed By: #### L 501.9520, L3100.5475, L100.0100, L500.4050, L502.0500 ####[facility] [address] [place], [address] Platelet mean volume (Bld) [Entitic vol] 11.3 fL Normal 6.2-12.[address] [facility] Comment on above: Performed By: #### L 501.9520, L3100.5475, L100.0100, L500.4050, L502.0500 ####[facility] [address] [place], [address] Platelets (Bld) [#/Vol] 174 10*3/uL Normal 150-[address] [facility] Comment on above: Performed By: #### L 501.9520, L3100.5475, L100.0100, L500.4050, L502.0500 ####[facility] [address] [place], [address] RBC (Bld) [#/Vol] 4.65 10*6/uL Normal 4.2-5.4 [facility] Comment on above: Performed By: #### L 501.9520, L3100.5475, L100.0100, L500.4050, L502.0500 ####[facility] [address] [place], [address] RDW SD 42.3 fl Normal 35.1-43.[address] [facility] Comment on above: Performed By: #### L 501.9520, L3100.5475, L100.0100, L500.4050, L502.0500 ####[facility] [address] [place], [address] WBC (Bld) [#/Vol] 6.8 10*3/uL Normal 4.4-11.0 [facility] Comment on above: Performed By: #### L 501.9520, L3100.5475, L100.0100, L500.4050, L502.0500 ####[facility] [address] [place], [address] Comprehensive Metabolic [facility] 08-03-2024 Albumin [Mass/Vol] 3.8 g/dL Normal 3.2-5.0 [facility] Comment on above: Performed By: #### L 501.9520, L3100.5475, L100.0100, L500.4050, L502.0500 ####[facility] [address] [place], [address] Albumin/Globulin [Mass ratio] 1.1 {ratio} Normal 0.9-2.[address] [facility] Comment on above: Performed By: #### L 501.9520, L3100.5475, L100.0100, L500.4050, L502.0500 ####[facility] [address] [place], [address] ALK P 90 U/L Normal 45-[address] [facility] Comment on above: Performed By: #### L 501.9520, L3100.5475, L100.0100, L500.4050, L502.0500 ####[facility] [address] [place], [address] ALT [Catalytic activity/Vol] 24 U/L Normal 13-[address] [facility] Comment on above: Performed By: #### L 501.9520, L3100.5475, L100.0100, L500.4050, L502.0500 ####[facility] [address] [place], [address] AST [Catalytic activity/Vol] 24 U/L Normal 15-[address] [facility] Comment on above: Performed By: #### L 501.9520, L3100.5475, L100.0100, L500.4050, L502.0500 ####[facility] [address] [place], [address] Bilirubin [Mass/Vol] 1.10 mg/dL High 0.20-1.00 [facility] Comment on above: Result Comment: For patients on eltrombopag therapy, use of Dimension Noti TBIL is not recommended. Performed By: #### L 501.9520, L3100.5475, L100.0100, L500.4050, L502.0500 ####[facility] [address] [place], [address] BUN/CRE 24.7 RATIO High 10-[address] [facility] Comment on above: Performed By: #### L 501.9520, L3100.5475, L100.0100, L500.4050, L502.0500 ####[facility] [address] [place], [address] CA,Total 9.5 mg/dL Normal 8.5-10.[address] [facility] Comment on above: Performed By: #### L 501.9520, L3100.5475, L100.0100, L500.4050, L502.0500 ####[facility] [address] [place], [address] Chloride [Moles/Vol] 104 mmol/L Normal 98-107 [facility] Comment on above: Performed By: #### L 501.9520, L3100.5475, L100.0100, L500.4050, L502.0500 ####[facility] [address] [place], [address] CO2 [Moles/Vol] 25.0 mmol/L Normal 21.0-32.[address] [facility] Comment on above: Performed By: #### L 501.9520, L3100.5475, L100.0100, L500.4050, L502.0500 ####[facility] [address] [place], [address] Creatinine [Mass/Vol] 0.73 mg/dL Normal 0.55-1.02 [facility] Comment on above: Result Comment: The validity of the calculated GFR GFRAA in patients over 70 years has not been determined. Clinical correlation is essential. Performed By: #### L 501.9520, L3100.5475, L100.0100, L500.4050, L502.0500 ####[facility] [address] [place], [address] EST GFR - AA 100 mL/min Normal >[address] [facility] Comment on above: Result Comment: Afri can Hungarian GFR Calc Performed By: #### L 501.9520, L3100.5475, L100.0100, L500.4050, L502.0500 ####[facility] [address] [place], [address] GAP 9 Normal 5-[address] [facility] Comment on above: Performed By: #### L 501.9520, L3100.5475, L100.0100, L500.4050, L502.0500 ####[facility] [address] [place], [address] GFR/1.73 sq M.predicted among non-blacks MDRD (S/P/Bld) [Vol rate/Area] 83 mL/min/{1.73_m2} Normal >[address] [facility] Comment on above: Result Comment: Non- GFR Calc Performed By: #### L 501.9520, L3100.5475, L100.0100, L500.4050, L502.0500 ####[facility] [address] [place], [address] Globulin (S) [Mass/Vol] 3.6 g/dL Normal 2.2-4.[address] [facility] Comment on above: Performed By: #### L 501.9520, L3100.5475, L100.0100, L500.4050, L502.0500 ####[facility] [address] [place], [address] Glucose [Mass/Vol] 103 mg/dL Normal 74-106 [facility] Comment on above: Result Comment: Fast ing Glucose result from 100 to 125 mg/dL suggests IMPAIRED HOMEOSTASIS per A.D.A. criteria. Performed By: #### L 501.9520, L3100.5475, L100.0100, L500.4050, L502.0500 ####[facility] [address] [place], [address] Potassium [Moles/Vol] 3.8 mmol/L Normal 3.5-5.1 [facility] Comment on above: Performed By: #### L 501.9520, L3100.5475, L100.0100, L500.4050, L502.0500 ####[facility] [address] [place], [address] Sodium [Moles/Vol] 139 mmol/L Normal 136-145 [facility] Comment on above: Performed By: #### L 501.9520, L3100.5475, L100.0100, L500.4050, L502.0500 ####[facility] [address] [place], [address] T PROT 7.4 g/dL Normal 6.4-8.[address] [facility] Comment on above: Performed By: #### L 501.9520, L3100.5475, L100.0100, L500.4050, L502.0500 ####[facility] [address] [place], [address] Urea nitrogen [Mass/Vol] 18 mg/dL Normal 7-[address] [facility] Comment on above: Performed By: #### L 501.9520, L3100.5475, L100.0100, L500.4050, L502.0500 ####[facility] [address] [place], [address] Microalbumin,Random Urineon 08-03-2024 MICROALBUMIN,UR 5.4 mg/L Normal NO RANGE EST. [facility] Comment on above: Performed By: #### L 501.9520, L3100.5475, L100.0100, L500.4050, L502.0500 ####[facility] [address] [place], [address] Thyroid Stim Hormone (TSH)on 08-03-2024 TSH 1.650 uIU/mL Normal 0.358-3.[address] [facility] Comment on above: Performed By: #### L 501.9520, L3100.5475, L100.0100, L500.4050, L502.0500 ####[facility] [address] [place], [address] Esophagus Dual Contraston Esophagus Dual Contrast [facility] [address] [place] [address] Esophagus Dual Contrast MR#: [id number] Acct: [id number] Name: WINIFRED VÁSQUEZ Rep #: [id number] : 1950 F 73 From: Lefty spangler MD PCP: [facility] Status: REG CLI Study: Esophagus Dual Contrast Date of Exam: 07/02/24 Exam# [id number] Ordering Dr: Lucita Agarwal [facility] MEDICAL OFFICE ADMINISTRATOR-C 4:[id number] STUDY: X-RAY - ESOPHAGUS (BARIUM SWALLOW) WITH FLUOROSCOPY REASON FOR EXAM: Female, 73 years old. DYSPHAGIA TECHNIQUE: 90 fluoroscopic view(s) of the esophagus were obtained following swallowing of barium. FLUOROSCOPY TIME (if supplied): (45 seconds) minutes/seconds. 9.5 mGy. COMPARISON: None. FINDINGS: There is no demonstrated esophageal foreign body. There is no demonstrated stricture or mucosal abnormality. Normal gastroesophageal junction, without a demonstrated hiatal hernia. The patient ingested a 12 mm tablet of barium without any difficulty. There is atherosclerotic calcification of the aortic arch with tortuosity of the descending aorta. Normal visualized pulmonary parenchyma. There are diffuse degenerative changes of the visualized thoracic spine. A filter is seen in the inferior vena cava. RAD/Esophagus Dual Contrast IMPRESSION: Normal plain film x-ray examination (barium swallow) of the esophagus. Electronically Signed: Lefty Espinoza MD at 13:47 EDT , CC: [facility] OSMAN Agarwal; [facility] Installation And Repair Technician: Signed Normal [facility] Basophil percentageOrdered B y: [facility] Lucita Agarwal on 02-17-2024 Bilirubin [Mass/Vol] 1.10 mg/dL 0.20-1.00 [facility] Comment on above: For patients on eltr ombopag therapy, use of Dimension Noti TBIL is not recommended. Chloride [Moles/Vol] 105 mmol/L 98-107 [facility] Cholesterol [Mass/Vol] 168 mg/dL <200 [facility] Comment on above: <200 mg/dL Desirable 200-240 mg/dL Borderline >240 mg/dL High Risk Glucose [Mass/Vol] 123 mg/dL 74-106 [facility] Comment on above: Fasting Glucose resu lt from 100 to 125 mg/dL suggests IMPAIRED HOMEOSTASIS per A.D.A. criteria. Hemoglobin (Bld) [Mass/Vol] 13.5 g/dL 12.0-15.[address] [facility] Potassium [Moles/Vol] 4.1 mmol/L 3.5-5.1 [facility] Protein [Mass/Vol] 7.3 g/dL 6.4-8.2 [facility] Sodium [Moles/Vol] 139 mmol/L 136-145 [facility] Triglyceride [Mass/Vol] 142 mg/dL <[address] [facility] Comment on above: The drugs N-Acetylcy steine and Metamizole may falsely depress this assay.Serum Triglycerides Reference Interval Normal <150 mg/dL Borderline high 150 - 199 mg/dL High 200 - 499 mg/dL Very High > or = 500 mg/dL WBC (Bld) [#/Vol] 8.2 10*3/uL 4.4-11.0 [facility] Determination of erythrocyte mean corpuscular volume (MCV)Ordered By: [facility] Lucita Agarwal on 02-17-2024 MCV (RBC) [Entitic vol] 92.4 fL 81-[address] [facility] Erythrocyte distribution wid th ratioOrdered By: [facility] Lucita Agarwal on 02-17-2024 Erythrocyte distribution width (RBC) [Ratio] 12.5 % 11.6-14.[address] [facility] Erythrocyte distribution wid th standard deviationOrdered By: [facility] Lucita Stefano on 02-17-2024 Erythrocyte distribution width (RBC) [Entitic vol] 42.3 fL 35.1-43.[address] [facility] Hematocrit Auto (Bld) [Volum e fraction]Ordered By: [facility] Lucita Stefano on 02-17-2024 Hematocrit (Bld) [Volume fraction] 41.5 % 37-[address] [facility] Laboratory - Chemistry and C hemistry - challengeOrdered By: [facility] Lucita Stefano on 02-17-2024 Albumin/Globulin [Mass ratio] 0.9 {ratio} 0.9-2.[address] [facility] ALP [Catalytic activity/Vol] 85 U/L 45-[address] [facility] ALT [Catalytic activity/Vol] 25 U/L 13-[address] [facility] Cholesterol in HDL [Mass/Vol] 43 mg/dL >[address] [facility] Comment on above: The drugs N-Acetylcy steine and Metamizole may falsely depress this assay. Reference Range HDL <40 mg/dL Low HDL Cholesterol HDL >or= 60 mg/dL High HDL Cholesterol Cholesterol in LDL [Mass/Vol] 97 mg/dL 0-[address] [facility] CO2 [Moles/Vol] 29.0 mmol/L 21.0-32.[address] [facility] Globulin (S) [Mass/Vol] 3.8 g/dL 2.2-4.[address] [facility] Urea nitrogen/Creatinine [Mass ratio] 24.2 mg/mg 10-[address] [facility] Laboratory - Hematology and Cell countsOrdered By: [facility] Lucitaminnie Agarwal on 02-17-2024 MCH (RBC) [Entitic mass] 30.1 pg 27.0-32.[address] [facility] MCHC (RBC) [Mass/Vol] 32.5 g/dL 32-36 [facility] Platelet mean volume (Bld) [Entitic vol] 11.4 fL 6.2-12.[address] [facility] Platelets (Bld) [#/Vol] 175 10*3/uL 150-[address] [facility] No Panel InformationOrdered By: [facility] Lucitaminnie Agarwal on 02-17-2024 Estimated GFR (MDRD) Amer 105 mL/min >[address] [facility] Comment on above: GFR Calc Estimated GFR (MDRD) Non-Af Amer 87 mL/min >[address] [facility] Comment on above: Non- GFR Calc VLDL Cholesterol 28 mg/dL 5-[address] [facility] RBC Auto (Bld) [#/Vol]Ordere d By: [facility] Lucita Stefano on 02-17-2024 RBC (Bld) [#/Vol] 4.49 10*6/uL 4.2-5.4 [facility] Serum or plasma calcium jackie urement (mass/volume)Ordered By: [facility] Lucita Agarwal on 02-17-2024 Calcium [Mass/Vol] 9.4 mg/dL 8.5-10.1 [facility] Serum or plasma creatinine m easurement (mass/volume)Ordered By: [facility] Lucitaminnie Agarwal on 02-17-2024 Creatinine [Mass/Vol] 0.70 mg/dL 0.55-1.02 [facility] Comment on above: The validity of the calculated GFR & GFRAA in patients over 70 years has not been determined. Clinical correlation is essential. Serum or plasma urea nitroge n measurement (mass/volume)Ordered By: [facility] Lucitaminnie Agarwal on 02-17-2024 Urea nitrogen [Mass/Vol] 17 mg/dL 7-[address] [facility] Thin prep Papanicolaou smear with manual screeningOrdered By: [facility] Lucita Stefano on 02-17-2024 Thin prep Papanicolaou smear with manual screening 3.5 g/dL 3.2-5.[address] [facility] Thin prep Papanicolaou smear with manual screening 25 U/L 15-[address] [facility] Thin prep Papanicolaou smear with manual screening 5 5-[address] [facility] Thin prep Papanicolaou smear with manual screening 27.6 mg/L NO RANGE EST. [facility] Glucose Test strip manual (B ld) [Mass/Vol]on 12-25-2023 Glucose [Mass/Vol] 105 mg/dL High 74-99 [facility] Comment on above: Performed By: #### 2 341-6 #### ZAVALETA MALA ([id number]) [facility] ([facility]) [address] [place] [address] HISTORY PHYSICALon HISTORY PHYSICAL HNO ID: [id number] Author: MARSHA HARRIS MD Service: ? Author Type: Physician Type: H&P Filed: 12/16/2023 08:58 Note Text: HISTORY AND PHYSICAL EXAMINATION SERVICE DATE: 11/26/2023 SERVICE TIME: 3:45 PM PRIMARY CARE PHYSICIAN: Lucita Agarwal NP REASON FOR VISIT: Winifred Vásquez is a 73 year old female who is being seen for Combined Age-related Cataract Left Eye. 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 HPI: PAST MEDICAL HISTORY Diagnosis Date Anemia Arthritis Asthma Congestive heart failure (HCC) Congestive heart failure, unspecified Disorder of bone and cartilage, unspecified Esophageal reflux History of breast cancer History of skin cancer Hypertension Osteoarthrosis, unspecified whether generalized or localized, unspecified site Other abnormal glucose Other and unspecified hyperlipidemia Sleep apnea Unspecified essential hypertension PAST SURGICAL HISTORY Procedure Laterality Date CHOLECYSTECTOMY HX COLONOSCOPY FLX DX W/COLLJ SPEC WHEN PFRMD 01/16/2015 Colonoscopy REMV CATARACT EXTRACAP,INSERT LENS Right 03/13/2023 FAMILY HISTORY Problem Relation Age of Onset Colon Cancer Father Heart Mother No Ocular Disease No Family History SOCIAL HISTORY: Social History Tobacco Use Smoking status: Never Substance Use Topics Alcohol use: No Drug use: No MEDICATIONS: Prior to Admission medications as of 11/26/23 1530 Medication Sig Last Dose Taking fluorometholone (FML LIQUID FILM) 0.1 % ophthalmic suspension Use 1 Drop in the left eye three times a day. Yes amLODIPine (NORVASC) 2.5 mg tablet Take 2.5 mg by mouth once daily. Taking Yes anastrozole (ARIMIDEX) 1 mg tablet Taking Yes hydroCHLOROthiazide (HYDRODIURIL, ESIDRIX) 25 mg tablet Take 25 mg by mouth once daily. Taking Yes lisinopril (ZESTRIL, PRINIVIL) 40 mg tablet Take 40 mg by mouth once daily. Taking Yes metFORMIN ER (GLUCOPHAGE XR) 500 mg 24 hr tablet Take 500 mg by mouth once daily. Taking Yes propylene glycoL (SYSTANE COMPLETE) 0.6 % drop Use 1 Drop in both eyes three times daily. Taking Yes pravastatin (PRAVACHOL) 20 mg tablet Take 20 mg by mouth once daily. Taking Yes montelukast (SINGULAIR) 10 mg tablet Take 10 mg by mouth daily at bedtime. Taking Yes losartan (COZAAR) 100 mg tablet Take 100 mg by mouth once daily. Taking Yes meloxicam (MOBIC) 7.5 mg tablet Take 7.5 mg by mouth once daily. Taking Yes POTASSIUM CHLORIDE (KLOR-CON M20 ORAL) Take by mouth. Taking Yes omeprazole (PRILOSEC) 20 mg capsule Take 20 mg by mouth once daily. Taking Yes ALBUTEROL SULFATE (PROVENTIL INHALATION) Inhale as instructed. Taking Yes CALCIUM CARBONATE/VITAMIN D3 (CALCIUM 600 + D ORAL) Take by mouth. Taking Yes ascorbic acid, vitamin C, (VITAMIN C) 500 mg tablet Take 500 mg by mouth once daily. Taking Yes CPAP Taking Yes fexofenadine (RUBI) 180 mg tablet Take 180 mg by mouth once daily. Taking Yes furosemide (LASIX) 20 mg tablet Take 60 mg by mouth once daily. Taking Yes atenolol 100 mg tablet Take 100 mg by mouth once daily. Taking Yes aspirin 81 mg chewable tablet Take 81 mg by mouth once daily. Taking Yes FLUTICASONE PROPIONATE (FLONASE NASAL) Use in the nose as needed. Taking Yes fluticasone-salmeterol (ADVAIR) 500-50 mcg/dose dsdv Inhale 2 Puffs as instructed as needed. Taking Yes erythromycin (ROMYCIN) 5 mg/gram (0.5 %) ophthalmic ointment Use 1 application in both eyes daily at bedtime. Medication Comments documented by Cheo Hong (Rn)(Lisa) RN on 04/09/2012 at 1756. Potassium 20mg daily per patient and singular 10mg daily CURRENT ALLERGIES: ALLERGIES Allergen Reactions Penicillins Rash Tongue swelled Cephalexin Rash blisters Clindamycin Intolerance Sulfa (Sulfonamide * Intolerance REVIEW OF SYSTEMS: PAIN ASSESSMENT: General: No weight loss, malaise or fevers. Neuro: No Hx of stroke or seizures Respiratory: No history of current cough or dyspnea, or pneumonia in the past 6 weeks. No history of respiratory/pulmonary symptoms or problems Cardiovascular: Positive for: Hypertension GI: No history of GI symptoms or problems. No history of esophageal varices, recent ascites, or ETOH greater than 2 drinks per day. : No history of UTI in past 6 weeks. No history of renal failure. Not currently on or requiring dialysis. No history of symptoms or problems. METER ATTENDANT: Negative for abnormal vaginal bleeding, abnormal vaginal discharge. : N/A Endocrine: Diabetes Mellitus on oral agent Hematology: No history (more content not included)... Normal [facility] CNOVon 09-19-2023 CNOV Office Visit (UCWSTR ) WINIFRED VÁSQUEZ ([id number]) 1950 F Date Time Provider Department 09/19/23 12:15 PM LUIS OSORIO [facility] During your visit today, we recorded the following information about you: Luis Osorio APRN.CNP 09/19/2023 12:22 PM Signed Patient triaged at [facility]. Here today with upset stomach/not eating/weigth loss since starting new medication from pcp 2+months ago. No abdominal pain. I will refer to pcp, likely medication reaction. Allergies As of Date: 09/19/2023 Noted Allergy Reaction PENICILLINS 04/09/2012 2 - Rash Comments: Tongue swelled CEPHALEXIN 04/09/2012 2 - Rash Comments: blisters CLINDAMYCIN 01/10/2015 5 - Intolerance SULFA (SULFONAMIDE ANTIBIOTICS) 01/10/2015 5 - Intolerance Date Reviewed: 04/16/2023 Reviewed by: Marsha Harris MD - Fully Assessed Primary Visit Diagnosis:Chronic upset stomach [K30] Prescriptions as of 09/19/2023 - keTORolac (ACULAR) 0.5 % ophthalmic solution Use 1 Drop in the right eye four times daily. - prednisoLONE acetate (PRED FORTE) 1 % ophthalmic suspension Use 1 Drop in the right eye four times daily. - amLODIPine (NORVASC) 2.5 mg tablet Take 2.5 mg by mouth once daily. - anastrozole (ARIMIDEX) 1 mg tablet - hydroCHLOROthiazide (HYDRODIURIL, ESIDRIX) 25 mg tablet Take 25 mg by mouth once daily. - lisinopril (ZESTRIL, PRINIVIL) 40 mg tablet Take 40 mg by mouth once daily. - metFORMIN ER (GLUCOPHAGE XR) 500 mg 24 hr tablet Take 500 mg by mouth once daily. - propylene glycoL (SYSTANE COMPLETE) 0.6 % drop Use 1 Drop in both eyes three times daily. - pravastatin (PRAVACHOL) 20 mg tablet Take 20 mg by mouth once daily. - montelukast (SINGULAIR) 10 mg tablet Take 10 mg by mouth daily at bedtime. - losartan (COZAAR) 100 mg tablet Take 100 mg by mouth once daily. - meloxicam (MOBIC) 7.5 mg tablet Take 7.5 mg by mouth once daily. - POTASSIUM CHLORIDE (KLOR-CON M20 ORAL) Take by mouth. - omeprazole (PRILOSEC) 20 mg capsule Take 20 mg by mouth once daily. - ALBUTEROL SULFATE (PROVENTIL INHALATION) Inhale as instructed. - CALCIUM CARBONATE/VITAMIN D3 (CALCIUM 600 + D ORAL) Take by mouth. - ascorbic acid, vitamin C, (VITAMIN C) 500 mg tablet Take 500 mg by mouth once daily. - CPAP - fexofenadine (RUBI) 180 mg tablet Take 180 mg by mouth once daily. - furosemide (LASIX) 20 mg tablet Take 60 mg by mouth once daily. - atenolol 100 mg tablet Take 100 mg by mouth once daily. - aspirin 81 mg chewable tablet Take 81 mg by mouth once daily. - FLUTICASONE PROPIONATE (FLONASE NASAL) Use in the nose as needed. - fluticasone-salmeterol (ADVAIR) 500-50 mcg/dose dsdv Inhale 2 Puffs as instructed as needed. 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 Basophil percentageOrdered B y: Candice Rossi on 09-04-2023 Basophils/100 WBC (Bld) 0.4 % 0-[address] [facility] Bilirubin [Mass/Vol] 1.50 mg/dL 0.20-1.00 [facility] Comment on above: For patients on eltr ombopag therapy, use of Dimension Noti TBIL is not recommended. Chloride [Moles/Vol] 105 mmol/L 98-107 [facility] Eosinophils/100 WBC (Bld) 3.3 % 0-[address] [facility] Glucose [Mass/Vol] 99 mg/dL 74-106 [facility] Neutrophils (Bld) [#/Vol] 6.9 10*3/uL 2.0-7.[address] [facility] Neutrophils/100 WBC (Bld) 62.0 % 47-[address] [facility] Potassium [Moles/Vol] 3.9 mmol/L 3.5-5.1 [facility] Protein [Mass/Vol] 7.5 g/dL 6.4-8.2 [facility] Sodium [Moles/Vol] 137 mmol/L 136-145 [facility] WBC (Bld) [#/Vol] 11.2 10*3/uL 4.4-11.0 [facility] Blood erythrocytes count (nu mber/volume)Ordered By: Candice Rossi on 09-04-2023 RBC (Bld) [#/Vol] 4.60 10*6/uL 4.2-5.4 [facility] Blood hemoglobin measurement (mass/volume)Ordered By: Candice Rossi on 09-04-2023 Hemoglobin (Bld) [Mass/Vol] 14.0 g/dL 12.0-15.[address] [facility] Blood lymphocytes/100 leukoc ytesOrdered By: Candice Rossi on 09-04-2023 Lymphocytes/100 WBC (Bld) 25.7 % 19-[address] [facility] Blood monocytes/100 leukocyt esOrdered By: [facility]23 Monocytes/100 WBC (Bld) 8.2 % 0-[address] [facility] Blood platelet mean volumeOr dered By: Candice Rossi on 09-04-2023 Platelet mean volume (Bld) [Entitic vol] 11.3 fL 6.2-12.[address] [facility] Determination of erythrocyte mean corpuscular volume (MCV)Ordered By: Candice Rossi on 09-04-2023 MCV (RBC) [Entitic vol] 92.8 fL 81-[address] [facility] Hematocrit Auto (Bld) [Volum e fraction]Ordered By: [facility] on 09-04-2023 Hematocrit (Bld) [Volume fraction] 42.7 % 37-[address] [facility] Laboratory - Chemistry and C hemistry - challengeOrdered By: [facility] on 09-04-2023 ALP [Catalytic activity/Vol] 91 U/L 45-[address] [facility] ALT [Catalytic activity/Vol] 20 U/L 13-[address] [facility] CO2 [Moles/Vol] 28.0 mmol/L 21.0-32.[address] [facility] Globulin (S) [Mass/Vol] 3.8 g/dL 2.2-4.[address] [facility] Urea nitrogen/Creatinine [Mass ratio] 14.8 mg/mg 10-[address] [facility] Laboratory - Hematology and Cell countsOrdered By: [facility] on 09-04-2023 Erythrocyte distribution width (RBC) [Entitic vol] 42.8 fL 35.1-43.[address] [facility] Erythrocyte distribution width (RBC) [Ratio] 12.4 % 11.6-14.[address] [facility] Immature granulocytes/100 WBC (Bld) 0.400 % 0.0-0.[address] [facility] Comment on above: IG% - Immature Granu locytes (promyelocytes, myelocytes and metamyelocytes) > 1% indicates that a LEFT SHIFT is Present. MCH (RBC) [Entitic mass] 30.4 pg 27.0-32.[address] [facility] Nucleated RBC/100 WBC (Bld) [Ratio] 0 % 0-[address] [facility] MCHC Auto (RBC) [Mass/Vol]Or dered By: Candice Rossi on 09-04-2023 MCHC (RBC) [Mass/Vol] 32.8 g/dL 32-36 [facility] No Panel InformationOrdered By: Candice Rossi on 09-04-2023 Estimated Creatinine Clearance Calc 103.20 ml/min [facility] Estimated GFR (MDRD) Amer 89 mL/min >[address] [facility] Comment on above: GFR Calc Estimated GFR (MDRD) Non-Af Amer 74 mL/min >[address] [facility] Comment on above: Non- GFR Calc Platelets bldOrdered By: Bandar Rossi on 09-04-2023 Platelets (Bld) [#/Vol] 147 10*3/uL 150-[address] [facility] Serum or plasma albumin jackie urement (mass/volume)Ordered By: Candice Rossi on 09-04-2023 Albumin [Mass/Vol] 3.7 g/dL 3.2-5.0 [facility] Serum or plasma albumin/glob ulin mass ratioOrdered By: Candice Rossi on 09-04-2023 Albumin/Globulin [Mass ratio] 1.0 {ratio} 0.9-2.[address] [facility] Serum or plasma calcium jackie urement (mass/volume)Ordered By: Candice Rossi on 09-04-2023 Calcium [Mass/Vol] 9.6 mg/dL 8.5-10.1 [facility] Serum or plasma creatinine m easurement (mass/volume)Ordered By: Candice Rossi on 09-04-2023 Creatinine [Mass/Vol] 0.81 mg/dL 0.55-1.02 [facility] Comment on above: The validity of the calculated GFR & GFRAA in patients over 70 years has not been determined. Clinical correlation is essential. Serum or plasma urea nitroge n measurement (mass/volume)Ordered By: Candice Rossi on 09-04-2023 Urea nitrogen [Mass/Vol] 12 mg/dL 7-[address] [facility] Thin prep Papanicolaou smear with manual screeningOrdered By: Candice Rossi on 09-04-2023 Thin prep Papanicolaou smear with manual screening 19 U/L 15-[address] [facility] Thin prep Papanicolaou smear with manual screening 4 5-[address] [facility] Basophil percentageOrdered B y: Candice Rossi on 09-01-2023 Basophil percentage < 0.9 mg/dL 0.55-1.02 [facility] No Panel InformationOrdered By: Candice Rossi on 09-01-2023 Bedside Estimated GFR (eGFR) > 60.0000 mL/min >[address] [facility] CBC panel Auto (Bld)on 03-31 Erythrocyte distribution width (RBC) [Ratio] 12.2 % Normal 11.5-15.0 [facility] Comment on above: Order Comment: Speci men Type: BLOOD SPECIMEN Ordering Facility: [facility] Address: [address] [place] [address] Performed By: #### 2 4323-8, 46567-0, 6-3 #### [facility] CLIA [id number] [address] [place] [address] [place] Hematocrit (Bld) [Volume fraction] 44.2 % Normal 36.0-46.0 [facility] Comment on above: Order Comment: Speci men Type: BLOOD SPECIMEN Ordering Facility: [facility] Address: [address] [place] [address] Performed By: #### 2 4323-8, 53439-3, 3016-3 #### [facility] CLIA [id number] [address] [address] [place] Hemoglobin (Bld) [Mass/Vol] 14.4 g/dL Normal 11.5-15.5 [facility] Comment on above: Order Comment: Speci men Type: BLOOD SPECIMEN Ordering Facility: [facility] Address: [address] [place] [address] Performed By: #### 2 4323-8, 81839-2, 3016-3 #### [facility] CLIA [id number] [address] [place] [address] [place] MCH (RBC) [Entitic mass] 30.6 pg Normal 26.0-34.0 [facility] Comment on above: Order Comment: Speci men Type: BLOOD SPECIMEN Ordering Facility: [facility] Address: [address] [place] [address] Performed By: #### 2 4323-8, 15264-9, 3016-3 #### [facility] CLIA [id number] [address] [place] [address] STATES [place] [facility] MCHC (RBC) [Mass/Vol] 32.6 g/dL Normal 30.5-36.0 [facility] Comment on above: Order Comment: Speci men Type: BLOOD SPECIMEN Ordering Facility: [facility] Address: [address] [place] [address] Performed By: #### 2 4323-8, 34337-5, 3016-3 #### [facility] CLIA [id number] [address] [place] [address] [place] MCV (RBC) [Entitic vol] 93.8 fL Normal 80.0-100.0 [facility] Comment on above: Order Comment: Speci men Type: BLOOD SPECIMEN Ordering Facility: [facility] Address: [address] [place] [address] Performed By: #### 2 4323-8, 17939-9, 3016-3 #### [facility] CLIA [id number] [address] [place] [id number] [address] [place] Nucleated RBC (Bld) [#/Vol] 10*3/uL Normal <0.01 [facility] Comment on above: Order Comment: Speci men Type: BLOOD SPECIMEN Ordering Facility: [facility] Address: [address] [place] [address] Performed By: #### 2 4323-8, 90414-4, 3016-3 #### [facility] CLIA [id number] [address] [place] [address] [place] Platelet mean volume (Bld) [Entitic vol] 12.1 fL Normal 9.0-12.7 [facility] Comment on above: Order Comment: Speci men Type: BLOOD SPECIMEN Ordering Facility: [facility] Address: [address] [place] [address] Performed By: #### 2 4323-8, 39170-0, 3016-3 #### [facility] CLIA [id number] [address] [place] [address] [place] Platelets (Bld) [#/Vol] 170 10*3/uL Normal 150-400 [facility] Comment on above: Order Comment: Speci men Type: BLOOD SPECIMEN Ordering Facility: [facility] Address: [address] [place] [address] Performed By: #### 2 4323-8, 18253-9, 3016-3 #### [facility] CLIA [id number] [address] [place], [place] [address] [place] RBC (Bld) [#/Vol] 4.71 10*6/uL Normal 3.90-5.20 [facility] Comment on above: Order Comment: Speci men Type: BLOOD SPECIMEN Ordering Facility: [facility] Address: [address] [place] [address] Performed By: #### 2 4323-8, 82809-3, 3016-3 #### [facility] CLIA [id number] [address] [place], [place] [address] [place] WBC (Bld) [#/Vol] 6.86 10*3/uL Normal 3.70-11.00 [facility] Comment on above: Order Comment: Speci men Type: BLOOD SPECIMEN Ordering Facility: [facility] Address: [address] [place] [address], [place] [address] Performed By: #### 2 4323-8, 21841-7, 3016-3 #### [facility] CLIA [id number] [address] [place] [address] [place] Comprehensive metabolic 2000 panelon 03-31-2023 Albumin [Mass/Vol] 4.2 g/dL Normal 3.9-4.[address] [facility] Comment on above: Order Comment: Speci men Type: BLOOD SPECIMEN Ordering Facility: [facility] Address: [address] [place] [address], [place] [address] Performed By: #### 2 4323-8, 17364-5, 6-3 #### [facility] CLIA [id number] [address] [place] [address] [place] ALP [Catalytic activity/Vol] 88 U/L Normal 34-123 [facility] Comment on above: Order Comment: Speci men Type: BLOOD SPECIMEN Ordering Facility: [facility] Address: [address] [place] [address], [place] [address] Performed By: #### 2 4323-8, 32074-4, 6-3 #### [facility] CLIA [id number] [address] [place] [address] [place] ALT [Catalytic activity/Vol] 32 U/L Normal 7-38 [facility] Comment on above: Order Comment: Speci men Type: BLOOD SPECIMEN Ordering Facility: [facility] Address: [address] [place] [address], [place] [address] Performed By: #### 2 4323-8, 41602-0, 3016-3 #### [facility] CLIA [id number] [address] [place] [address] [place] Anion gap [Moles/Vol] 14 mmol/L Normal 9-18 [facility] Comment on above: Order Comment: Speci men Type: BLOOD SPECIMEN Ordering Facility: [facility] Address: [address] [place] [address], [place] [address] Performed By: #### 2 4323-8, 94731-2, 3016-3 #### [facility] CLIA [id number] [address] [place] [address] [place] AST [Catalytic activity/Vol] 39 U/L High 13-35 [facility] Comment on above: Order Comment: Speci men Type: BLOOD SPECIMEN Ordering Facility: [facility] Address: [address] [place] [address], [place] [address] Performed By: #### 2 4323-8, 84918-4, 3016-3 #### [facility] CLIA [id number] [address] [place] [address] [place] Bilirubin [Mass/Vol] 0.7 mg/dL Normal 0.2-1.3 [facility] Comment on above: Order Comment: Speci men Type: BLOOD SPECIMEN Ordering Facility: [facility] Address: [address] [place] [address], [place] [address] Performed By: #### 2 4323-8, 32952-7, 3016-3 #### [facility] CLIA [id number] [address] [place] [address] [place] Calcium [Mass/Vol] 10.2 mg/dL Normal 8.5-10.[address] [facility] Comment on above: Order Comment: Speci men Type: BLOOD SPECIMEN Ordering Facility: [facility] Address: [address] [place] [address], [place] [address] Performed By: #### 2 4323-8, 11477-0, 3016-3 #### [facility] CLIA [id number] [address] [place] [id number] [address] [place] Chloride [Moles/Vol] 103 mmol/L Normal 97-105 [facility] Comment on above: Order Comment: Speci men Type: BLOOD SPECIMEN Ordering Facility: [facility] Address: [address] [place] [address] Performed By: #### 2 4323-8, 69140-5, 3016-3 #### [facility] CLIA [id number] [address] [place] [address] [place] CO2 [Moles/Vol] 23 mmol/L Normal 22-30 [facility] Comment on above: Order Comment: Speci men Type: BLOOD SPECIMEN Ordering Facility: [facility] Address: [address] [place] [address] Performed By: #### 2 4323-8, 56141-9, 3016-3 #### [facility] CLIA [id number] [address] [place] [address] STATES [place] [facility] Creatinine [Mass/Vol] 0.70 mg/dL Normal 0.58-0.96 [facility] Comment on above: Order Comment: Speci men Type: BLOOD SPECIMEN Ordering Facility: [facility] Address: [address] [place] [address] Performed By: #### 2 4323-8, 52636-9, 3016-3 #### [facility] CLIA [id number] [address] [place] [address] [place] ESTIMATED GLOMERULAR FILTRATION RATE 91 mL/min/1.73m??? Normal >=60 [facility] Comment on above: Order Comment: Speci men Type: BLOOD SPECIMEN Ordering Facility: [facility] Address: [address] [place] [address] Result Comment: Abby mated Glomerular Filtration Rate (eGFR) is calculated using the 2020 CKD-EPI creatinine equation. This equation utilizes serum creatinine, sex, and age as parameters. The creatinine assay has traceable calibration to isotope dilution-mass spectrometry. Refer to KDIGO guidelines for clinical interpretation. In patients with unstable renal function, e.g. those with acute kidney injury, the eGFR may not accurately reflect actual GFR. Performed By: #### 2 4323-8, 09076-3, 3015-3 #### [facility] CLIA [id number] [address] [address] [place] Glucose [Mass/Vol] 105 mg/dL High 74-[address] [facility] Comment on above: Order Comment: Jcarlos sandhu Type: BLOOD SPECIMEN Ordering Facility: [facility] Address: [address] [place] [address], [place] [address] Result Comment: The [place] [employer] (ADA) provides guidance for cutoff values for fasting glucose and random glucose. The ADA defines fasting as no caloric intake for at least 8 hours. Fasting plasma glucose results between 100 to 125 mg/dL indicate increased risk for diabetes (prediabetes). Fasting plasma glucose results greater than or equal to 126 mg/dL meet the criteria for diagnosis of diabetes. In the absence of unequivocal hyperglycemia, results should be confirmed by repeat testing. In a patient with classic symptoms of hyperglycemia or hyperglycemic crisis, random plasma glucose results greater than or equal to 200 mg/dL meet the criteria for diagnosis of diabetes. Reference: Standards of Medical Care in Diabetes 2016, [place] [employer]. Diabetes Care. 2016.39(Suppl 1). Performed By: #### 2 4323-8, 09986-6, 3015-12 #### [facility] CLIA [id number] [address] [address] [place] [place] Potassium [Moles/Vol] 4.4 mmol/L Normal 3.7-5.1 [facility] Comment on above: Order Comment: Jcarlos sandhu Type: BLOOD SPECIMEN Ordering Facility: [facility] Address: [address], [place] [address] Performed By: #### 2 4323-8, 69569-6, 3 #### [facility] CLIA [id number] [address] [address] [place] Protein [Mass/Vol] 7.1 g/dL Normal 6.3-8.[address] [facility] Comment on above: Order Comment: Speci men Type: BLOOD SPECIMEN Ordering Facility: [facility] Address: [address], [place] [address] Performed By: #### 2 4323-8, 82652-1, 3015-3 #### [facility] CLIA [id number] [address] [place] [address] [place] Sodium [Moles/Vol] 140 mmol/L Normal 136-[address] [facility] Comment on above: Order Comment: Speci men Type: BLOOD SPECIMEN Ordering Facility: [facility] Address: [address] [place] [address], [place] [address] Performed By: #### 2 4323-8, 18462-5, 3015-3 #### [facility] CLIA [id number] [address] [place] [address] [place] Urea nitrogen [Mass/Vol] 23 mg/dL High 7-21 [facility] Comment on above: Order Comment: Speci men Type: BLOOD SPECIMEN Ordering Facility: [facility] Address: [address], [place] [address] Performed By: #### 2 4323-8, 70067-2, 3 #### [facility] CLIA [id number] [address] [place], [place] [id number] [place] Lipid 1996 panelon 3 Cholesterol [Mass/Vol] 172 mg/dL Normal <[address] [facility] Comment on above: Order Comment: Speci men Type: BLOOD SPECIMEN Ordering Facility: [facility] Address: [address], [place] [id number] Result Comment: <200 mg/dL, Desirable 200-239 mg/dL, Borderline high >239 mg/dL, High Performed By: #### 2 4323-8, 21539-8, 3015-3 #### [facility] CLIA [id number] [address] [address] [place] Cholesterol in HDL [Mass/Vol] 43 mg/dL Normal >39 [facility] Comment on above: Order Comment: Speci men Type: BLOOD SPECIMEN Ordering Facility: [facility] Address: [address] [place] [address], [place] [address] Result Comment: 40-5 9 mg/dL, Acceptable >59 mg/dL, High: Negative risk factor for coronary heart disease <40 mg/dL, Low: Positive risk factor for coronary heart disease Performed By: #### 2 4323-8, 11866-0, 6-3 #### [facility] CLIA [id number] [address] [place] [address] [place] Cholesterol in LDL [Mass/Vol] 102 mg/dL High <100 [facility] Comment on above: Order Comment: Jcarlos phoebe Type: BLOOD SPECIMEN Ordering Facility: [facility] Address: [address] [place] [address], [place] [address] Result Comment: <100 mg/dL, Optimal 100-129 mg/dL, Near optimal/above optimal 130-159 mg/dL, Borderline high 160-189 mg/dL, High >189 mg/dL, Very high Secondary prevention optimal LDL Cholesterol levels are recommended to be < 70 mg/dL Performed By: #### 2 4323-8, 85273-0, 3015-3 #### [facility] CLIA [id number] [address] [place] [address] [place] Cholesterol in LDL/Cholesterol in HDL [Mass ratio] 2.37 {ratio} Normal <2.54 [facility] Comment on above: Order Comment: Jcarlos sandhu Type: BLOOD SPECIMEN Ordering Facility: [facility] Address: [address] [place] [address], [place] [address] Result Comment: Viviana piper: 1. National Cholesterol Education Program ATP III Guideline At-A-Glance Quick Desk Reference: National Heart, Lung, and Blood [place]. National Institutes of Health. 2001: NIH Publication No. 01-3305. 2. An International Atherosclerosis Society position paper: global recommendations for the management of dyslipidemia: executive summary, Atherosclerosis. 2014: 232(2):410-413. Performed By: #### 2 4323-8, 19027-7, 3015-3 #### [facility] CLIA [id number] [address] [place] [id number] [place] Cholesterol in VLDL [Mass/Vol] 27 mg/dL Normal <30 [facility] Comment on above: Order Comment: Speci men Type: BLOOD SPECIMEN Ordering Facility: [facility] Address: [address] [place] [address], [place] [address] Performed By: #### 2 4323-8, 17348-2, 3015-3 #### [facility] CLIA [id number] [address] [place] [address] [place] Cholesterol non HDL [Mass/Vol] 129 mg/dL Normal <130 [facility] Comment on above: Order Comment: Speci men Type: BLOOD SPECIMEN Ordering Facility: [facility] Address: [address] [place] [address], [place] [address] Result Comment: <130 mg/dL, Optimal 130-159 mg/dL, Near optimal/above optimal 160-189 mg/dL, Borderline high 190-219 mg/dL, High >219 mg/dL, Very high Secondary prevention optimal non HDL Cholesterol levels are recommended to be <100 mg/dL Performed By: #### 2 4323-8, 56713-2, 3015-3 #### [facility] CLIA [id number] [address] [place] [address] [place] Cholesterol.total/Chol esterol in HDL [Mass ratio] 4.00 {ratio} Normal <5.10 [facility] Comment on above: Order Comment: Speci men Type: BLOOD SPECIMEN Ordering Facility: [facility] Address: [address] [place] [address], [place] [address] Performed By: #### 2 4323-8, 42366-2, 3015-3 #### [facility] CLIA [id number] [address] [place] [id number] [place] FASTING TIME 12 hrs Normal [facility] Comment on above: Order Comment: Speci men Type: BLOOD SPECIMEN Ordering Facility: [facility] Address: [address] [place] [address], [place] [address] Performed By: #### 2 4323-8, 22599-7, 3016-3 #### [facility] CLIA [id number] [address] [place] Triglyceride [Mass/Vol] 137 mg/dL Normal <150 [facility] Comment on above: Order Comment: Speci men Type: BLOOD SPECIMEN Ordering Facility: [facility] Address: [address] [place] [address], [place] [address] Result Comment: <150 mg/dL, Normal 150-199 mg/dL, Borderline high 200-499 mg/dL, High >499 mg/dL, Very high Performed By: #### 2 4323-8, 28731-6, 3015-3 #### [facility] CLIA [id number] [address] [place] [address] [place] TSH SerPl-aCncon 03-31-2023 TSH Qn 1.230 m[IU]/L Normal 0.270-4.20 0 [facility] Comment on above: Order Comment: Speci men Type: BLOOD SPECIMEN Ordering Facility: [facility] Address: [address] [place] [address], [place] [address] Performed By: #### 2 4323-8, 70929-4, 6-3 #### [facility] CLIA [id number] [address] [place] [address] [place] Glucose Test strip manual (B ld) [Mass/Vol]on 03-13-2023 Glucose [Mass/Vol] 111 mg/dL High 74 - 99 mg/dL [facility] Interpretation and review of laboratory results Abnormal [facility] Absolute lymphocyte counton 09-03-2022 Lymphocytes Auto (Unsp spec) [#/Vol] 3.07 10*3/uL 0.83-4.[address] [facility] Work Phone: Basophil percentageon 2021 Basophils/100 WBC (Bld) 0.5 % 0-[address] [facility] Work Phone: Bilirubin [Mass/Vol] 0.90 mg/dL 0.20-1.00 [facility] Work Phone: Comment on above: For patients on eltr ombopag therapy, use of Dimension Noti TBIL is not recommended. Chloride [Moles/Vol] 106 mmol/L 98-107 [facility] Work Phone: Eosinophils/100 WBC (Bld) 3.6 % 0-[address] [facility] Work Phone: Glucose [Mass/Vol] 103 mg/dL 74-106 [facility] Work Phone: Comment on above: Fasting Glucose resu lt from 100 to 125 mg/dL suggests IMPAIRED HOMEOSTASIS per A.D.A. criteria. Neutrophils (Bld) [#/Vol] 4.2 10*3/uL 2.0-7.[address] [facility] Work Phone: Neutrophils/100 WBC (Bld) 50.9 % 47-[address] [facility] Work Phone: Potassium [Moles/Vol] 4.2 mmol/L 3.5-5.1 [facility] Work Phone: Protein [Mass/Vol] 7.2 g/dL 6.4-8.2 [facility] Work Phone: Sodium [Moles/Vol] 142 mmol/L 136-145 [facility] Work Phone: WBC (Bld) [#/Vol] 8.2 10*3/uL 4.4-11.0 [facility] Work Phone: Blood erythrocytes count (nu mber/volume)on 09-03-2022 RBC (Bld) [#/Vol] 4.49 10*6/uL 4.2-5.4 [facility] Work Phone: Blood hemoglobin measurement (mass/volume)on 09-03-2022 Hemoglobin (Bld) [Mass/Vol] 13.7 g/dL 12.0-15.[address] [facility] Work Phone: Blood lymphocytes/100 leukoc yteson 09-03-2022 Lymphocytes/100 WBC (Bld) 37.6 % 19-[address] [facility] Work Phone: Blood monocytes/100 leukocyt eson 09-03-2022 Monocytes/100 WBC (Bld) 7.0 % 0-[address] [facility] Work Phone: Blood platelet mean volumeon 09-03-2022 Platelet mean volume (Bld) [Entitic vol] 10.9 fL 6.2-12.[address] [facility] Work Phone: Determination of erythrocyte mean corpuscular volume (MCV)on 09-03-2022 MCV (RBC) [Entitic vol] 92.0 fL 81-[address] [facility] Work Phone: Hematocrit Auto (Bld) [Volum e fraction]on 09-03-2022 Hematocrit (Bld) [Volume fraction] 41.3 % 37-[address] [facility] Work Phone: Laboratory - Chemistry and C hemistry - challengeon 09-03-2022 ALP [Catalytic activity/Vol] 81 U/L 45-[address] [facility] Work Phone: ALT [Catalytic activity/Vol] 52 U/L 13-[address] [facility] Work Phone: CO2 [Moles/Vol] 29.0 mmol/L 21.0-32.[address] [facility] Work Phone: Globulin (S) [Mass/Vol] 3.6 g/dL 2.2-4.[address] [facility] Work Phone: Urea nitrogen/Creatinine [Mass ratio] 28.6 mg/mg 10-[address] [facility] Work Phone: Laboratory - Hematology and Cell countson 09-03-2022 Erythrocyte distribution width (RBC) [Entitic vol] 41.9 fL 35.1-43.[address] [facility] Work Phone: Erythrocyte distribution width (RBC) [Ratio] 12.4 % 11.6-14.[address] [facility] Work Phone: Immature granulocytes/100 WBC (Bld) 0.400 % 0.0-0.[address] [facility] Work Phone: Comment on above: IG% - Immature Granu locytes (promyelocytes, myelocytes and metamyelocytes) > 1% indicates that a LEFT SHIFT is Present. MCH (RBC) [Entitic mass] 30.5 pg 27.0-32.[address] [facility] Work Phone: Nucleated RBC/100 WBC (Bld) [Ratio] 0 % 0-[address] [facility] Work Phone: MCHC Auto (RBC) [Mass/Vol]on 09-03-2022 MCHC (RBC) [Mass/Vol] 33.2 g/dL 32-36 [facility] Work Phone: No Panel Informationon 09-03 Estimated GFR (MDRD) Amer 90 mL/min >[address] [facility] Work Phone: Comment on above: GFR Calc Estimated GFR (MDRD) Non-Af Amer 74 mL/min >[address] [facility] Work Phone: Comment on above: Non- GFR Calc Platelets bldon 09-03-2022 Platelets (Bld) [#/Vol] 173 10*3/uL 150-[address] [facility] Work Phone: Serum or plasma albumin jackie urement (mass/volume)on 09-03-2022 Albumin [Mass/Vol] 3.6 g/dL 3.2-5.0 [facility] Work Phone: Serum or plasma albumin/glob ulin mass ratioon 09-03-2022 Albumin/Globulin [Mass ratio] 1.0 {ratio} 0.9-2.[address] [facility] Work Phone: Serum or plasma calcium jackie urement (mass/volume)on 09-03-2022 Calcium [Mass/Vol] 9.3 mg/dL 8.5-10.1 [facility] Work Phone: Serum or plasma creatinine m easurement (mass/volume)on 09-03-2022 Creatinine [Mass/Vol] 0.80 mg/dL 0.55-1.02 [facility] Work Phone: Comment on above: The validity of the calculated GFR & GFRAA in patients over 70 years has not been determined. Clinical correlation is essential. Serum or plasma urea nitroge n measurement (mass/volume)on 09-03-2022 Urea nitrogen [Mass/Vol] 23 mg/dL 7-[address] [facility] Work Phone: Thin prep Papanicolaou smear with manual screeningon 09-03-2022 Thin prep Papanicolaou smear with manual screening 47 U/L 15-[address] [facility] Work Phone: Thin prep Papanicolaou smear with manual screening 7 5-[address] [facility] Work Phone: Basophil percentageon 2021 Basophil percentage < 0.9 mg/dL 0.55-1.02 [facility] Work Phone: No Panel Informationon 08-29 Bedside Estimated GFR (eGFR) > 60.0000 mL/min >[address] [facility] Work Phone: Absolute lymphocyte counton 04-22-2022 Lymphocytes Auto (Unsp spec) [#/Vol] 2.95 10*3/uL 0.83-4.[address] [facility] Work Phone: Basophil percentageon 2021 Basophils/100 WBC (Bld) 0.4 % 0-[address] [facility] Work Phone: Bilirubin [Mass/Vol] 0.80 mg/dL 0.20-1.00 [facility] Work Phone: Comment on above: For patients on eltr ombopag therapy, use of Dimension Noti TBIL is not recommended. Chloride [Moles/Vol] 106 mmol/L 98-107 [facility] Work Phone: Eosinophils/100 WBC (Bld) 3.0 % 0-[address] [facility] Work Phone: [phone] Glucose [Mass/Vol] 116 mg/dL 74-106 [facility] Work Phone: Comment on above: Fasting Glucose resu lt from 100 to 125 mg/dL suggests IMPAIRED HOMEOSTASIS per A.D.A. criteria. Neutrophils (Bld) [#/Vol] 4.3 10*3/uL 2.0-7.[address] [facility] Work Phone: Neutrophils/100 WBC (Bld) 52.5 % 47-[address] [facility] Work Phone: Potassium [Moles/Vol] 4.0 mmol/L 3.5-5.1 [facility] Work Phone: Protein [Mass/Vol] 7.3 g/dL 6.4-8.2 [facility] Work Phone: Sodium [Moles/Vol] 140 mmol/L 136-145 [facility] Work Phone: WBC (Bld) [#/Vol] 8.1 10*3/uL 4.4-11.0 [facility] Work Phone: Blood erythrocytes count (nu mber/volume)on 04-22-2022 RBC (Bld) [#/Vol] 4.52 10*6/uL 4.2-5.4 [facility] Work Phone: [phone] Blood hemoglobin measurement (mass/volume)on 04-22-2022 Hemoglobin (Bld) [Mass/Vol] 14.0 g/dL 12.0-15.[address] [facility] Work Phone: [phone] Blood lymphocytes/100 leukoc yteson 04-22-2022 Lymphocytes/100 WBC (Bld) 36.4 % 19-[address] [facility] Work Phone: Blood monocytes/100 leukocyt eson 04-22-2022 Monocytes/100 WBC (Bld) 7.5 % 0-[address] [facility] Work Phone: [phone] Blood platelet mean volumeon 06-27-2022 Platelet mean volume (Bld) [Entitic vol] 11.8 fL 6.2-12.[address] [facility] Work Phone: Determination of erythrocyte mean corpuscular volume (MCV)on 04-22-2022 MCV (RBC) [Entitic vol] 92.3 fL 81-[address] [facility] Work Phone: Hematocrit Auto (Bld) [Volum e fraction]on 04-22-2022 Hematocrit (Bld) [Volume fraction] 41.7 % 37-[address] [facility] Work Phone: Laboratory - Chemistry and C hemistry - challengeon 04-22-2022 ALP [Catalytic activity/Vol] 81 U/L 45-[address] [facility] Work Phone: ALT [Catalytic activity/Vol] 42 U/L 13-[address] [facility] Work Phone: CO2 [Moles/Vol] 28.0 mmol/L 21.0-32.[address] [facility] Work Phone: Globulin (S) [Mass/Vol] 3.7 g/dL 2.2-4.[address] [facility] Work Phone: Urea nitrogen/Creatinine [Mass ratio] 26.0 mg/mg 10-[address] [facility] Work Phone: Laboratory - Hematology and Cell countson 04-22-2022 Erythrocyte distribution width (RBC) [Entitic vol] 43.3 fL 35.1-43.[address] [facility] Work Phone: Erythrocyte distribution width (RBC) [Ratio] 12.8 % 11.6-14.[address] [facility] Work Phone: Immature granulocytes/100 WBC (Bld) 0.200 % 0.0-0.[address] [facility] Work Phone: Comment on above: IG% - Immature Granu locytes (promyelocytes, myelocytes and metamyelocytes) > 1% indicates that a LEFT SHIFT is Present. MCH (RBC) [Entitic mass] 31.0 pg 27.0-32.[address] [facility] Work Phone: Nucleated RBC/100 WBC (Bld) [Ratio] 0 % 0-[address] [facility] Work Phone: MCHC Auto (RBC) [Mass/Vol]on 04-22-2022 MCHC (RBC) [Mass/Vol] 33.6 g/dL 32-36 [facility] Work Phone: No Panel Informationon 04-22 Estimated GFR (MDRD) Amer 85 mL/min >[address] [facility] Work Phone: Comment on above: GFR Calc Estimated GFR (MDRD) Non-Af Amer 70 mL/min >[address] [facility] Work Phone: Comment on above: Non- GFR Calc Thyroid Stimulating Hormone (TSH) 1.54 uIU/mL 0.358-3.[address] [facility] Work Phone: Platelets bldon 04-22-2022 Platelets (Bld) [#/Vol] 167 10*3/uL 150-[address] [facility] Work Phone: Serum or plasma albumin jackie urement (mass/volume)on 04-22-2022 Albumin [Mass/Vol] 3.6 g/dL 3.2-5.0 [facility] Work Phone: Serum or plasma albumin/glob ulin mass ratioon 04-22-2022 Albumin/Globulin [Mass ratio] 1.0 {ratio} 0.9-2.[address] [facility] Work Phone: Serum or plasma calcitriol m easurement (mass/volume)on 04-22-2022 1,25-dihydroxyvitamin D3 [Mass/Vol] 43.8 pg/mL 24.8-81.[address] [facility] Work Phone: Comment on above: Please note refere nce interval changePerformed at: - Lab[address] [id number] Director: Saray Terry MD, Phone: [phone] Serum or plasma calcium jackie urement (mass/volume)on 06-27-2022 Calcium [Mass/Vol] 9.5 mg/dL 8.5-10.1 [facility] Work Phone: Serum or plasma creatinine m easurement (mass/volume)on 04-22-2022 Creatinine [Mass/Vol] 0.85 mg/dL 0.55-1.02 [facility] Work Phone: Comment on above: The validity of the calculated GFR & GFRAA in patients over 70 years has not been determined. Clinical correlation is essential. Serum or plasma urea nitroge n measurement (mass/volume)on 04-22-2022 Urea nitrogen [Mass/Vol] 22 mg/dL 7-[address] [facility] Work Phone: Thin prep Papanicolaou smear with manual screeningon 04-22-2022 Thin prep Papanicolaou smear with manual screening 42 U/L 15-[address] [facility] Work Phone: Thin prep Papanicolaou smear with manual screening 6 5-[address] [facility] Work Phone: Basophil percentageon 2021 Cholesterol [Mass/Vol] 191 mg/dL <200 [facility] Work Phone: Comment on above: <200 mg/dL Desirable 200-240 mg/dL Borderline >240 mg/dL High Risk Triglyceride [Mass/Vol] 163 mg/dL <[address] [facility] Work Phone: Comment on above: The drugs N-Acetylcy steine and Metamizole may falsely depress this assay.Serum Triglycerides Reference Interval Normal <150 mg/dL Borderline high 150 - 199 mg/dL High 200 - 499 mg/dL Very High > or = 500 mg/dL Laboratory - Chemistry and C hemistry - challengeon 01-10-2022 Cobalamin (Vitamin B12) [Mass/Vol] 477 pg/mL 211-[address] [facility] Work Phone: Free T4 [Mass/Vol] 1.05 ng/dL 0.76-1.46 [facility] Work Phone: No Panel Informationon 01-10 Thyroid Stimulating Hormone (TSH) 1.74 uIU/mL 0.358-3.[address] [facility] Work Phone: Urine Microalbumin/Creatinin e Ratio 23.1 mg/g CRE <[address] [facility] Work Phone: Serum or plasma cholesterol in HDL measurement (mass/volume)on 01-10-2022 Cholesterol in HDL [Mass/Vol] 44 mg/dL >[address] [facility] Work Phone: Comment on above: The drugs N-Acetylcy steine and Metamizole may falsely depress this assay. Reference Range HDL <40 mg/dL Low HDL Cholesterol HDL >or= 60 mg/dL High HDL Cholesterol Serum or plasma cholesterol in VLDL measurement (mass/volume)on 01-10-2022 Cholesterol in VLDL [Mass/Vol] 33 mg/dL 5-[address] [facility] Work Phone: Serum or plasma low density lipoprotein (LDL) cholesterol measurement (mass/volume)on 01-10-2022 Cholesterol in LDL [Mass/Vol] 114 mg/dL 0-[address] [facility] Work Phone: Thin prep Papanicolaou smear with manual screeningon 01-10-2022 Thin prep Papanicolaou smear with manual screening 21.4 mg/L NO RANGE EST. [facility] Work Phone: Urine creatinine measurement (mass/volume)on 01-10-2022 Creatinine (U) [Mass/Vol] 92.50 mg/dL NO RANGE EST. [facility] Work Phone: Absolute lymphocyte counton 10-15-2021 Lymphocytes Auto (Unsp spec) [#/Vol] 2.38 10*3/uL 0.83-4.[address] [facility] Work Phone: Basophil percentageon 2020 Bilirubin [Mass/Vol] 0.80 mg/dL 0.20-1.00 [facility] Work Phone: Comment on above: For patients on eltr ombopag therapy, use of Dimension Noti TBIL is not recommended. Chloride [Moles/Vol] 104 mmol/L 98-107 [facility] Work Phone: Eosinophils/100 WBC (Bld) 2.5 % 0-[address] [facility] Work Phone: Glucose [Mass/Vol] 97 mg/dL 74-106 [facility] Work Phone: Comment on above: Please note revised GLUCOSE reference range effective 2017. Neutrophils (Bld) [#/Vol] 4.0 10*3/uL 2.0-7.[address] [facility] Work Phone: Potassium [Moles/Vol] 4.1 mmol/L 3.5-5.1 [facility] Work Phone: Protein [Mass/Vol] 7.0 g/dL 6.4-8.2 [facility] Work Phone: Sodium [Moles/Vol] 142 mmol/L 136-145 [facility] Work Phone: WBC (Bld) [#/Vol] 7.1 10*3/uL 4.4-11.0 [facility] Work Phone: Blood erythrocytes count (nu mber/volume)on 10-15-2021 RBC (Bld) [#/Vol] 4.30 10*6/uL 4.2-5.4 [facility] Work Phone: Blood hemoglobin measurement (mass/volume)on 10-15-2021 Hemoglobin (Bld) [Mass/Vol] 12.8 g/dL 12.0-15.[address] [facility] Work Phone: Blood lymphocytes/100 leukoc yteson 10-15-2021 Lymphocytes/100 WBC (Bld) 33.7 % 19-[address] [facility] Work Phone: Blood monocytes/100 leukocyt eson 10-15-2021 Monocytes/100 WBC (Bld) 5.8 % 0-[address] [facility] Work Phone: Blood platelet mean volumeon 10-15-2021 Platelet mean volume (Bld) [Entitic vol] 10.9 fL 6.2-12.[address] [facility] Work Phone: Determination of erythrocyte mean corpuscular volume (MCV)on 10-15-2021 MCV (RBC) [Entitic vol] 92.3 fL 81-[address] [facility] Work Phone: Hematocrit Auto (Bld) [Volum e fraction]on 10-15-2021 Hematocrit (Bld) [Volume fraction] 39.7 % 37-[address] [facility] Work Phone: Laboratory - Chemistry and C hemistry - challengeon 10-15-2021 ALP [Catalytic activity/Vol] 83 U/L 45-[address] [facility] Work Phone: ALT [Catalytic activity/Vol] 35 U/L 13-[address] [facility] Work Phone: CO2 [Moles/Vol] 29.0 mmol/L 21.0-32.[address] [facility] Work Phone: Globulin (S) [Mass/Vol] 3.9 g/dL 2.2-4.[address] [facility] Work Phone: Urea nitrogen/Creatinine [Mass ratio] 22.4 mg/mg 10-[address] [facility] Work Phone: Laboratory - Hematology and Cell countson 10-15-2021 Basophils/100 WBC (Unsp spec) 0.7 % 0-[address] [facility] Work Phone: Erythrocyte distribution width (RBC) [Entitic vol] 42.9 fL 35.1-43.[address] [facility] Work Phone: Erythrocyte distribution width (RBC) [Ratio] 12.8 % 11.6-14.[address] [facility] Work Phone: Immature granulocytes/100 WBC (Bld) 0.400 % 0.0-0.[address] [facility] Work Phone: Comment on above: IG% - Immature Granu locytes (promyelocytes, myelocytes and metamyelocytes) > 1% indicates that a LEFT SHIFT is Present. MCH (RBC) [Entitic mass] 29.8 pg 27.0-32.[address] [facility] Work Phone: Neutrophils/100 WBC (Bld) 56.9 % 47-[address] [facility] Work Phone: Nucleated RBC/100 WBC (Bld) [Ratio] 0 % 0-[address] [facility] Work Phone: MCHC Auto (RBC) [Mass/Vol]on 10-15-2021 MCHC (RBC) [Mass/Vol] 32.2 g/dL 32-36 [facility] [place] Work Phone: No Panel Informationon 10-15 Estimated GFR (MDRD) Amer 104 mL/min >[address] [facility] Work Phone: Comment on above: GFR Calc Estimated GFR (MDRD) Non-Af Amer 86 mL/min >[address] [facility] Work Phone: Comment on above: Non- GFR Calc Platelets bldon 10-15-2021 Platelets (Bld) [#/Vol] 195 10*3/uL 150-[address] [facility] Work Phone: Serum or plasma albumin jackie urement (mass/volume)on 10-15-2021 Albumin [Mass/Vol] 3.1 g/dL 3.2-5.0 [facility] Work Phone: Serum or plasma albumin/glob ulin mass ratioon 10-15-2021 Albumin/Globulin [Mass ratio] 0.8 {ratio} 0.9-2.[address] [facility] Work Phone: Serum or plasma calcium jackie urement (mass/volume)on 10-15-2021 Calcium [Mass/Vol] 9.4 mg/dL 8.5-10.1 [facility] Work Phone: Serum or plasma creatinine m easurement (mass/volume)on 10-15-2021 Creatinine [Mass/Vol] 0.71 mg/dL 0.55-1.02 [facility] [place] Work Phone: Comment on above: The validity of the calculated GFR & GFRAA in patients over 70 years has not been determined. Clinical correlation is essential. Serum or plasma urea nitroge n measurement (mass/volume)on 10-15-2021 Urea nitrogen [Mass/Vol] 16 mg/dL 7-[address] [facility] Work Phone: Thin prep Papanicolaou smear with manual screeningon 10-15-2021 Thin prep Papanicolaou smear with manual screening 31 U/L 15-[address] [facility] Work Phone: Thin prep Papanicolaou smear with manual screening 9 5-[address] [facility] Work Phone: Absolute lymphocyte counton 10-06-2021 Lymphocytes Auto (Unsp spec) [#/Vol] 2.17 10*3/uL 0.83-4.[address] [facility] Work Phone: Basophil percentageon 2020 Bilirubin [Mass/Vol] 0.60 mg/dL 0.20-1.00 [facility] Work Phone: Comment on above: For patients on eltr ombopag therapy, use of Dimension Noti TBIL is not recommended. Chloride [Moles/Vol] 108 mmol/L 98-107 [facility] Work Phone: Eosinophils/100 WBC (Bld) 5.4 % 0-[address] [facility] Work Phone: Glucose [Mass/Vol] 112 mg/dL 74-106 [facility] Work Phone: Comment on above: Fasting Glucose resu lt from 100 to 125 mg/dL suggests IMPAIRED HOMEOSTASIS per A.D.A. criteria.Please note revised GLUCOSE reference range effective 2017. Neutrophils (Bld) [#/Vol] 3.0 10*3/uL 2.0-7.[address] [facility] Work Phone: Potassium [Moles/Vol] 3.3 mmol/L 3.5-5.1 [facility] [place] Work Phone: Protein [Mass/Vol] 6.4 g/dL 6.4-8.2 [facility] Work Phone: Sodium [Moles/Vol] 141 mmol/L 136-145 [facility] Work Phone: WBC (Bld) [#/Vol] 6.4 10*3/uL 4.4-11.0 [facility] Work Phone: Blood erythrocytes count (nu mber/volume)on 10-06-2021 RBC (Bld) [#/Vol] 4.38 10*6/uL 4.2-5.4 [facility] Work Phone: Blood hemoglobin measurement (mass/volume)on 10-06-2021 Hemoglobin (Bld) [Mass/Vol] 13.3 g/dL 12.0-15.[address] [facility] Work Phone: Blood lymphocytes/100 leukoc yteson 10-06-2021 Lymphocytes/100 WBC (Bld) 33.7 % 19-[address] [facility] Work Phone: Blood monocytes/100 leukocyt eson 10-06-2021 Monocytes/100 WBC (Bld) 12.9 % 0-[address] [facility] Work Phone: Blood platelet mean volumeon 10-06-2021 Platelet mean volume (Bld) [Entitic vol] 11.2 fL 6.2-12.[address] [facility] Work Phone: Determination of erythrocyte mean corpuscular volume (MCV)on 10-06-2021 MCV (RBC) [Entitic vol] 89.7 fL 81-[address] [facility] Work Phone: Hematocrit Auto (Bld) [Volum e fraction]on 10-06-2021 Hematocrit (Bld) [Volume fraction] 39.3 % 37-[address] [facility] Work Phone: Laboratory - Chemistry and C hemistry - challengeon 10-06-2021 ALP [Catalytic activity/Vol] 72 U/L 45-[address] [facility] Work Phone: ALT [Catalytic activity/Vol] 33 U/L 13-[address] [facility] Work Phone: CO2 [Moles/Vol] 27.0 mmol/L 21.0-32.[address] [facility] Work Phone: Globulin (S) [Mass/Vol] 3.8 g/dL 2.2-4.[address] [facility] Work Phone: Magnesium [Mass/Vol] 1.8 mg/dL 1.6-2.6 [facility] Work Phone: Urea nitrogen/Creatinine [Mass ratio] 35.0 mg/mg 10-[address] [facility] Work Phone: Laboratory - Hematology and Cell countson 10-06-2021 Basophils/100 WBC (Unsp spec) 0.6 % 0-[address] [facility] Work Phone: Erythrocyte distribution width (RBC) [Entitic vol] 42.4 fL 35.1-43.[address] [facility] Work Phone: Erythrocyte distribution width (RBC) [Ratio] 12.7 % 11.6-14.[address] [facility] Work Phone: Immature granulocytes/100 WBC (Bld) 0.900 % 0.0-0.[address] [facility] Work Phone: Comment on above: IG% - Immature Granu locytes (promyelocytes, myelocytes and metamyelocytes) > 1% indicates that a LEFT SHIFT is Present. MCH (RBC) [Entitic mass] 30.4 pg 27.0-32.[address] [facility] Work Phone: Neutrophils/100 WBC (Bld) 46.5 % 47-[address] [facility] Work Phone: Nucleated RBC/100 WBC (Bld) [Ratio] 0 % 0-[address] [facility] Work Phone: MCHC Auto (RBC) [Mass/Vol]on 10-06-2021 MCHC (RBC) [Mass/Vol] 33.8 g/dL 32-36 [facility] [place] Work Phone: No Panel Informationon 10-06 Estimated Creatinine Clearance Calc 77.88 ml/min [facility] Work Phone: Estimated GFR (MDRD) Amer 68 mL/min >[address] [facility] Work Phone: Comment on above: GFR Calc Estimated GFR (MDRD) Non-Af Amer 56 mL/min >[address] [facility] Work Phone: Comment on above: Non- GFR Calc Platelets bldon 10-06-2021 Platelets (Bld) [#/Vol] 170 10*3/uL 150-[address] [facility] Work Phone: Serum or plasma albumin jackie urement (mass/volume)on 10-06-2021 Albumin [Mass/Vol] 2.6 g/dL 3.2-5.0 [facility] Work Phone: Serum or plasma albumin/glob ulin mass ratioon 10-06-2021 Albumin/Globulin [Mass ratio] 0.7 {ratio} 0.9-2.[address] [facility] Work Phone: Serum or plasma calcium jackie urement (mass/volume)on 10-06-2021 Calcium [Mass/Vol] 9.3 mg/dL 8.5-10.1 [facility] Work Phone: Serum or plasma creatinine m easurement (mass/volume)on 10-06-2021 Creatinine [Mass/Vol] 1.03 mg/dL 0.55-1.02 [facility] [place] Work Phone: Comment on above: The validity of the calculated GFR & GFRAA in patients over 70 years has not been determined. Clinical correlation is essential. Serum or plasma urea nitroge n measurement (mass/volume)on 10-06-2021 Urea nitrogen [Mass/Vol] 36 mg/dL 7-[address] [facility] Work Phone: Thin prep Papanicolaou smear with manual screeningon 10-06-2021 Thin prep Papanicolaou smear with manual screening 33 U/L 15-[address] [facility] Work Phone: Thin prep Papanicolaou smear with manual screening 6 5-[address] [facility] Work Phone: Absolute lymphocyte counton 10-04-2021 Lymphocytes Auto (Unsp spec) [#/Vol] 1.89 10*3/uL 0.83-4.[address] [facility] Work Phone: Basophil percentageon 2020 Basophil percentage 5-10 SEEN /hpf [facility] Work Phone: [phone] Bilirubin [Mass/Vol] 1.10 mg/dL 0.20-1.00 [facility] Work Phone: Comment on above: For patients on eltr ombopag therapy, use of Dimension Noti TBIL is not recommended. Chloride [Moles/Vol] 99 mmol/L 98-107 [facility] Work Phone: Eosinophils/100 WBC (Bld) 0.6 % 0-[address] [facility] Work Phone: Glucose [Mass/Vol] 135 mg/dL 74-106 [facility] Work Phone: Comment on above: Fasting Glucose resu lt greater than or equal to 126 mg/dL suggests DIABETES MELLITUS per A.D.A. criteria.Please note revised GLUCOSE reference range effective 2017. Neutrophils (Bld) [#/Vol] 5.3 10*3/uL 2.0-7.[address] [facility] Work Phone: Potassium [Moles/Vol] 3.1 mmol/L 3.5-5.1 [facility] [place] Work Phone: [phone] Protein [Mass/Vol] 7.8 g/dL 6.4-8.2 [facility] Work Phone: Sodium [Moles/Vol] 135 mmol/L 136-145 [facility] Work Phone: WBC (Bld) [#/Vol] 8.7 10*3/uL 4.4-11.0 [facility] Work Phone: Bilirubin Test strip Ql (U)o n 10-04-2021 Bilirubin Ql (U) 6 mg/dL Negative [facility] Work Phone: Comment on above: COLOR OF URINE MAY A FFECT DIPSTICK RESULTS. Blood erythrocytes count (nu mber/volume)on 10-04-2021 RBC (Bld) [#/Vol] 5.20 10*6/uL 4.2-5.4 [facility] Work Phone: Blood hemoglobin measurement (mass/volume)on 10-04-2021 Hemoglobin (Bld) [Mass/Vol] 15.5 g/dL 12.0-15.[address] [facility] Work Phone: Blood lymphocytes/100 leukoc yteson 10-04-2021 Lymphocytes/100 WBC (Bld) 21.8 % 19-[address] [facility] Work Phone: Blood manual differential co mment interpretation (narrative result)on 10-04-2021 Manual differential comment Terrence (Bld) [Interp] SEE COMMENT [facility] Work Phone: Comment on above: MONOCYTOSIS NOTED Blood monocytes/100 leukocyt eson 10-04-2021 Monocytes/100 WBC (Bld) 15.1 % 0-[address] [facility] Work Phone: Blood platelet adequacy dete ction by light microscopyon 10-04-2021 Platelets LM Ql (Bld) ADEQUATE ADEQ [facility] [place] Work Phone: Blood platelet mean volumeon 10-04-2021 Platelet mean volume (Bld) [Entitic vol] 11.3 fL 6.2-12.[address] [facility] Work Phone: Determination of erythrocyte mean corpuscular volume (MCV)on 10-04-2021 MCV (RBC) [Entitic vol] 89.4 fL 81-[address] [facility] Work Phone: Hematocrit Auto (Bld) [Volum e fraction]on 10-04-2021 Hematocrit (Bld) [Volume fraction] 46.5 % 37-[address] [facility] Work Phone: Ketones Test strip Ql (U)on 10-04-2021 Ketones Ql (U) 5 mg/dl Negative [facility] Work Phone: Laboratory - Chemistry and C hemistry - challengeon 10-04-2021 ALP [Catalytic activity/Vol] 86 U/L 45-[address] [facility] Work Phone: ALT [Catalytic activity/Vol] 26 U/L 13-[address] [facility] Work Phone: CO2 [Moles/Vol] 27.0 mmol/L 21.0-32.[address] [facility] Work Phone: Free T4 [Mass/Vol] 1.45 ng/dL 0.76-1.46 [facility] Work Phone: Globulin (S) [Mass/Vol] 4.8 g/dL 2.2-4.[address] [facility] Work Phone: [phone] Lipase [Catalytic activity/Vol] 235 U/L 73-[address] [facility] Work Phone: Urea nitrogen/Creatinine [Mass ratio] 22.9 mg/mg 10-[address] [facility] Work Phone: Laboratory - Hematology and Cell countson 10-04-2021 Anisocytosis Ql (Bld) RARE [facility] [place] Work Phone: Basophils/100 WBC (Unsp spec) 0.6 % 0-[address] [facility] Work Phone: Erythrocyte distribution width (RBC) [Entitic vol] 42.9 fL 35.1-43.[address] [facility] Work Phone: [phone] Erythrocyte distribution width (RBC) [Ratio] 13.0 % 11.6-14.[address] [facility] Work Phone: Immature granulocytes/100 WBC (Bld) 0.500 % 0.0-0.[address] [facility] Work Phone: Comment on above: IG% - Immature Granu locytes (promyelocytes, myelocytes and metamyelocytes) > 1% indicates that a LEFT SHIFT is Present. MCH (RBC) [Entitic mass] 29.8 pg 27.0-32.[address] [facility] Work Phone: Neutrophils/100 WBC (Bld) 61.4 % 47-[address] [facility] Work Phone: Nucleated RBC/100 WBC (Bld) [Ratio] 0 % 0-[address] [facility] Work Phone: MCHC Auto (RBC) [Mass/Vol]on 10-04-2021 MCHC (RBC) [Mass/Vol] 33.3 g/dL 32-36 [facility] [place] Work Phone: Macrocytes detectionon 10-04 Macrocytes Ql (Bld) RARE [facility] Work Phone: Mucus LM Ql (Urine sed)on Mucus Ql (Urine sed) 0 SEEN /hpf [facility] [place] Work Phone: Nitrite Test strip Ql (U)on 10-04-2021 Nitrite Ql (U) Positive Negative [facility] Work Phone: No Panel Informationon 10-04 Estimated GFR (MDRD) Amer 46 mL/min >[address] [facility] Work Phone: Comment on above: GFR Calc Estimated GFR (MDRD) Non-Af Amer 38 mL/min >[address] [facility] Work Phone: Comment on above: Non- GFR Calc Thyroid Stimulating Hormone (TSH) 1.92 uIU/mL 0.358-3.[address] [facility] Work Phone: Platelets bldon 10-04-2021 Platelets (Bld) [#/Vol] 174 10*3/uL 150-[address] [facility] Work Phone: Protein Test strip Ql (U)on 10-04-2021 Protein Ql (U) 100 mg/dl Negative [facility] Work Phone: RBC morphologyon 10-04-2021 RBC morphology finding Nom (Bld) N CHROM NORMAL NORM C&C [facility] Work Phone: Serum or plasma albumin jackie urement (mass/volume)on 10-04-2021 Albumin [Mass/Vol] 3.0 g/dL 3.2-5.0 [facility] Work Phone: Serum or plasma albumin/glob ulin mass ratioon 10-04-2021 Albumin/Globulin [Mass ratio] 0.6 {ratio} 0.9-2.[address] [facility] Work Phone: Serum or plasma calcium jackie urement (mass/volume)on 10-04-2021 Calcium [Mass/Vol] 9.3 mg/dL 8.5-10.1 [facility] Work Phone: Serum or plasma creatinine m easurement (mass/volume)on 10-04-2021 Creatinine [Mass/Vol] 1.44 mg/dL 0.55-1.02 [facility] Work Phone: Comment on above: The validity of the calculated GFR & GFRAA in patients over 70 years has not been determined. Clinical correlation is essential. Serum or plasma urea nitroge n measurement (mass/volume)on 10-04-2021 Urea nitrogen [Mass/Vol] 33 mg/dL 7-[address] [facility] Work Phone: Squamous epithelial cells de tection in urine sediment by light microscopyon 10-04-2021 Epithelial cells.squamous LM Ql (Urine sed) 10-25 SEEN /hpf [facility] Work Phone: Thin prep Papanicolaou smear with manual screeningon 10-04-2021 Thin prep Papanicolaou smear with manual screening 27 U/L 15-[address] [facility] Work Phone: Thin prep Papanicolaou smear with manual screening 9 5-[address] [facility] Work Phone: Urine blood detectionon 12- RBC Ql (U) 25 /ul Negative [facility] Work Phone: RBC Ql (U) 0-5 SEEN /hpf [facility] Work Phone: Urine clarityon 10-04-2021 Clarity (U) Cloudy Clear [facility] Work Phone: Urine color determinationon 10-04-2021 Color (U) Vidhya Yellow [facility] Work Phone: Urine glucose detectionon Glucose Ql (U) 50 mg/dl Normal [facility] Work Phone: Urine leukocyte esterase det ection by dipstickon 10-04-2021 Leukocyte esterase Test strip Ql (U) 500 /ul Negative [facility] Work Phone: Urine pHon 10-04-2021 pH (U) 5.0 [pH] [facility] Work Phone: Urine sediment bacteria coun t by microscopy (number/high power field)on 10-04-2021 Bacteria LM.HPF (Urine sed) [#/Area] 1 /[HPF] None Seen [facility] Work Phone: Urine specific gravity measu rementon 10-04-2021 Specific gravity (U) [Rel density] 1.[address] [facility] Work Phone: Urobilinogen Auto test strip Ql (U)on 10-04-2021 Urobilinogen Ql (U) 4 mg/dl Normal [facility] Work Phone: Ferritinon 12-19-2020 Ferritin [Mass/Vol] 245.0 ng/mL High 14.7-205.1 [facility] Comment on above: Performed By: #### H BA1C, SERFOL, RETIC, B12, FERR #### [facility] Routine Lab [address], [place] [id number] Folate, Serumon 12-19-2020 Folate [Mass/Vol] 18.3 ng/mL Normal >4.7 [facility] Reference Lab Comment on above: Performed By: #### H BA1C, SERFOL, RETIC, B12, FERR #### [facility] Routine Lab [address] [place], [place] [address] Hemoglobin A1con 12-19-2020 HbA1c (Bld) [Mass fraction] 131 mg/dL Normal [facility] Comment on above: Performed By: #### H BA1C, SERFOL, RETIC, B12, FERR #### [facility] Routine Lab [address] [place], [place] [id number] HbA1c (Bld) [Mass fraction] 6.2 % High 4.3-5.6 [facility] Comment on above: Performed By: #### H BA1C, SERFOL, RETIC, B12, FERR #### [facility] Routine Lab [address] [place], [place] [address] Reticulocyteon 12-19-2020 Abs Retic 0.087 M/uL Normal 0.0180-0.1 000 [facility] Comment on above: Performed By: #### H BA1C, SERFOL, RETIC, B12, FERR #### [facility] Routine Lab [address] [place], [place] [address] Retic% 1.9 % Normal 0.4-2.0 [facility] Comment on above: Performed By: #### H BA1C, SERFOL, RETIC, B12, FERR #### [facility] Routine Lab [address] [place] [place] [address] Vitamin B12on 12-19-2020 Cobalamin (Vitamin B12) [Mass/Vol] 573 pg/mL Normal 232-1245 [facility] Comment on above: Performed By: #### H BA1C, SERFOL, RETIC, B12, FERR #### [facility] Routine Lab [address] [place] [address] CBC and Differentialon 03-01 Abs Baso 0.03 k/uL Normal <0.11 [facility] Comment on above: Performed By: #### C BCDIF, TSH, LIPB, CMP, VITD, HBA1C, FT4 #### [facility] Routine Lab [address] [place], [place] [address] Abs [place] 0.45 k/uL Normal <0.87 [facility] Comment on above: Performed By: #### C BCDIF, TSH, LIPB, CMP, VITD, HBA1C, FT4 #### [facility] Routine Lab [address] [place], [place] [address] Abs Neut 3.44 k/uL Normal 1.45-7.50 [facility] Comment on above: Performed By: #### C BCDIF, TSH, LIPB, CMP, VITD, HBA1C, FT4 #### [facility] Routine Lab [address] [place], [place] [address] Absolute nRBC <0.01 Normal <0.01 [facility] Comment on above: Performed By: #### C BCDIF, TSH, LIPB, CMP, VITD, HBA1C, FT4 #### [facility] Routine Lab [address] [place] [address] Basophils/100 WBC (Bld) 0.5 % Normal [facility] Comment on above: Performed By: #### C BCDIF, TSH, LIPB, CMP, VITD, HBA1C, FT4 #### [facility] Routine Lab [address] [place] [address] DTYPE ADIFF Normal [facility] Comment on above: Performed By: #### C BCDIF, TSH, LIPB, CMP, VITD, HBA1C, FT4 #### [facility] Routine Lab [address] [place] [address] Eosinophils (Bld) [#/Vol] 0.24 10*3/uL Normal <0.46 [facility] Comment on above: Performed By: #### C BCDIF, TSH, LIPB, CMP, VITD, HBA1C, FT4 #### [facility] Routine Lab [address] [place], [place] [address] Eosinophils/100 WBC (Bld) 3.9 % Normal [facility] Comment on above: Performed By: #### C BCDIF, TSH, LIPB, CMP, VITD, HBA1C, FT4 #### [facility] Routine Lab [address] [place], [place] [address] Erythrocyte distribution width (RBC) [Ratio] 12.8 % Normal 11.5-15.0 [facility] Comment on above: Performed By: #### C BCDIF, TSH, LIPB, CMP, VITD, HBA1C, FT4 #### [facility] Routine Lab [address] [place] [address] Hematocrit (Bld) [Volume fraction] 45.6 % Normal 36.0-46.0 [facility] Comment on above: Performed By: #### C BCDIF, TSH, LIPB, CMP, VITD, HBA1C, FT4 #### [facility] Routine Lab [address] [place] [address] Hemoglobin (Bld) [Mass/Vol] 14.4 g/dL Normal 11.5-15.5 [facility] Comment on above: Performed By: #### C BCDIF, TSH, LIPB, CMP, VITD, HBA1C, FT4 #### [facility] Routine Lab [address] [place] [address] Lymphocytes (Bld) [#/Vol] 1.96 10*3/uL Normal 1.00-4.00 [facility] Comment on above: Performed By: #### C BCDIF, TSH, LIPB, CMP, VITD, HBA1C, FT4 #### [facility] Routine Lab [address] [place] [address] Lymphocytes/100 WBC (Bld) 32.0 % Normal [facility] Comment on above: Performed By: #### C BCDIF, TSH, LIPB, CMP, VITD, HBA1C, FT4 #### [facility] Routine Lab [address] [place] [address] MCH (RBC) [Entitic mass] 30.4 pG Normal 26.0-34.0 [facility] Comment on above: Performed By: #### C BCDIF, TSH, LIPB, CMP, VITD, HBA1C, FT4 #### [facility] Routine Lab [address] [place], [place] [address] MCHC (RBC) [Mass/Vol] 31.6 g/dL Normal 30.5-36.0 [facility] Reference Lab Comment on above: Performed By: #### C BCDIF, TSH, LIPB, CMP, VITD, HBA1C, FT4 #### [facility] Routine Lab [address] [place], [place] [address] MCV (RBC) [Entitic vol] 96.2 fL Normal 80.0-100.0 [facility] Comment on above: Performed By: #### C BCDIF, TSH, LIPB, CMP, VITD, HBA1C, FT4 #### [facility] Routine Lab [address] [place], [place] [address] Monocytes/100 WBC (Bld) 7.4 % Normal [facility] Comment on above: Performed By: #### C BCDIF, TSH, LIPB, CMP, VITD, HBA1C, FT4 #### [facility] Routine Lab [address] [place] [address] Neutrophils/100 WBC (Bld) 56.2 % Normal [facility] Comment on above: Performed By: #### C BCDIF, TSH, LIPB, CMP, VITD, HBA1C, FT4 #### [facility] Routine Lab [address] [place], [place] [address] NRBCs 0.0 /100 WBC Normal 0 [facility] Comment on above: Performed By: #### C BCDIF, TSH, LIPB, CMP, VITD, HBA1C, FT4 #### [facility] Routine Lab [address] [place], [place] [address] Platelet mean volume (Bld) [Entitic vol] 12.0 fL Normal 9.0-12.7 [facility] Comment on above: Performed By: #### C BCDIF, TSH, LIPB, CMP, VITD, HBA1C, FT4 #### [facility] Routine Lab [address] [place], [place] [address] Platelets (Bld) [#/Vol] 178 10*3/uL Normal 150-400 [facility] Comment on above: Performed By: #### C BCDIF, TSH, LIPB, CMP, VITD, HBA1C, FT4 #### [facility] Routine Lab [address] [place] [address] RBC (Bld) [#/Vol] 4.74 10*6/uL Normal 3.90-5.20 [facility] Lab Comment on above: Performed By: #### C BCDIF, TSH, LIPB, CMP, VITD, HBA1C, FT4 #### [facility] Routine Lab [address] [place] [address] WBC (Bld) [#/Vol] 6.12 10*3/uL Normal 3.70-11.00 [facility] Reference Lab Comment on above: Performed By: #### C BCDIF, TSH, LIPB, CMP, VITD, HBA1C, FT4 #### [facility] Routine Lab [address] [place] [address] Comp Metabolic Panelon 03-01 Albumin [Mass/Vol] 4.2 g/dL Normal 3.9-4.9 [facility] Lab Comment on above: Performed By: #### C BCDIF, TSH, LIPB, CMP, VITD, HBA1C, FT4 #### [facility] Routine Lab [address] [place] [place] [address] ALP [Catalytic activity/Vol] 83 U/L Normal 34-123 [facility] Lab Comment on above: Performed By: #### C BCDIF, TSH, LIPB, CMP, VITD, HBA1C, FT4 #### [facility] Routine Lab [address] [address] ALT [Catalytic activity/Vol] 28 U/L Normal 7-38 [facility] Reference Lab Comment on above: Performed By: #### C BCDIF, TSH, LIPB, CMP, VITD, HBA1C, FT4 #### [facility] Routine Lab [address] [address] Anion gap [Moles/Vol] 14 mmol/L Normal 9-18 [facility] Reference Lab Comment on above: Performed By: #### C BCDIF, TSH, LIPB, CMP, VITD, HBA1C, FT4 #### [facility] Routine Lab [address] [address] AST [Catalytic activity/Vol] 32 U/L Normal 13-35 [facility] Reference Lab Comment on above: Performed By: #### C BCDIF, TSH, LIPB, CMP, VITD, HBA1C, FT4 #### [facility] Routine Lab [address] [address] Bilirubin Ql (U) 0.5 mg/dL Normal 0.2-1.3 [facility] Reference Lab Comment on above: Performed By: #### C BCDIF, TSH, LIPB, CMP, VITD, HBA1C, FT4 #### [facility] Routine Lab [address] [address] Calcium [Mass/Vol] 10.2 mg/dL Normal 8.5-10.2 [facility] Reference Lab Comment on above: Performed By: #### C BCDIF, TSH, LIPB, CMP, VITD, HBA1C, FT4 #### [facility] Routine Lab [address] [address] Chloride [Moles/Vol] 104 mmol/L Normal 97-105 [facility] Reference Lab Comment on above: Performed By: #### C BCDIF, TSH, LIPB, CMP, VITD, HBA1C, FT4 #### [facility] Routine Lab [address] [address] CO2 [Moles/Vol] 25 mmol/L Normal 22-30 [facility] Reference Lab Comment on above: Performed By: #### C BCDIF, TSH, LIPB, CMP, VITD, HBA1C, FT4 #### [facility] Routine Lab [address] [address] Creatinine [Mass/Vol] 0.72 mg/dL Normal 0.58-0.96 [facility] Reference Lab Comment on above: Performed By: #### C BCDIF, TSH, LIPB, CMP, VITD, HBA1C, FT4 #### [facility] Routine Lab [address] [place], [place] [address] eGFR- Amer. >60 Normal [facility] Reference Lab Comment on above: Performed By: #### C BCDIF, TSH, LIPB, CMP, VITD, HBA1C, FT4 #### [facility] Routine Lab [address] [place], [place] [address] GFR/1.73 sq M predicted among non-blacks MDRD (S/P/Bld) [Vol rate/Area] mL/min/{1.73_m2} Normal [facility] Reference Lab Comment on above: Performed By: #### C BCDIF, TSH, LIPB, CMP, VITD, HBA1C, FT4 #### [facility] Routine Lab [address] [place], [place] [address] Glucose [Mass/Vol] 118 mg/dL High 74-99 [facility] Reference Lab Comment on above: Performed By: #### C BCDIF, TSH, LIPB, CMP, VITD, HBA1C, FT4 #### [facility] Routine Lab [address] [place], [place] [address] Potassium [Moles/Vol] 4.3 mmol/L Normal 3.7-5.1 [facility] Reference Lab Comment on above: Performed By: #### C BCDIF, TSH, LIPB, CMP, VITD, HBA1C, FT4 #### [facility] Routine Lab [address] [place], [place] [address] Protein [Mass/Vol] 7.2 g/dL Normal 6.3-8.0 [facility] Reference Lab Comment on above: Performed By: #### C BCDIF, TSH, LIPB, CMP, VITD, HBA1C, FT4 #### [facility] Routine Lab [address] [place], [place] [address] Sodium [Moles/Vol] 143 mmol/L Normal 136-144 [facility] Reference Lab Comment on above: Performed By: #### C BCDIF, TSH, LIPB, CMP, VITD, HBA1C, FT4 #### [facility] Routine Lab [address] [place] [address] Urea nitrogen [Mass/Vol] 24 mg/dL High 7-21 [facility] Reference Lab Comment on above: Performed By: #### C BCDIF, TSH, LIPB, CMP, VITD, HBA1C, FT4 #### [facility] Routine Lab [address] [place] [address] Free T4on 03-01-2020 Free T4 [Mass/Vol] 1.1 ng/dL Normal 0.9-1.7 [facility] Reference Lab Comment on above: Performed By: #### C BCDIF, TSH, LIPB, CMP, VITD, HBA1C, FT4 #### [facility] Routine Lab [address] [place] [address] Hemoglobin A1con 03-01-2020 HbA1c (Bld) [Mass fraction] 5.8 % High 4.3-5.6 [facility] Reference Lab Comment on above: Performed By: #### H BA1C, SERFOL, RETIC, B12, FERR #### [facility] Routine Lab [address] [place] [id number] HbA1c (Bld) [Mass fraction] 120 mg/dL Normal [facility] Reference Lab Comment on above: Performed By: #### H BA1C, SERFOL, RETIC, B12, FERR #### [facility] Routine Lab [address] [place], [place] [address] Lipid Panel, Basicon 020 Cholesterol [Mass/Vol] 198 mg/dL Normal <200 [facility] Reference Lab Comment on above: Performed By: #### C BCDIF, TSH, LIPB, CMP, VITD, HBA1C, FT4 #### [facility] Routine Lab [address] [place], [place] [address] Cholesterol in HDL [Mass/Vol] 41 mg/dL Normal >39 [facility] Reference Lab Comment on above: Performed By: #### C BCDIF, TSH, LIPB, CMP, VITD, HBA1C, FT4 #### [facility] Routine Lab [address] [place], [place] [address] Cholesterol in LDL [Mass/Vol] 126 mg/dL High <100 [facility] Reference Lab Comment on above: Performed By: #### C BCDIF, TSH, LIPB, CMP, VITD, HBA1C, FT4 #### [facility] Routine Lab [address] [place], [place] [address] Cholesterol in VLDL [Mass/Vol] 31 mg/dL High <30 [facility] Reference Lab Comment on above: Performed By: #### C BCDIF, TSH, LIPB, CMP, VITD, HBA1C, FT4 #### [facility] Routine Lab [address] [place], [place] [address] Cholesterol non HDL [Mass/Vol] 157 mg/dL High <130 [facility] Reference Lab Comment on above: Performed By: #### C BCDIF, TSH, LIPB, CMP, VITD, HBA1C, FT4 #### [facility] Routine Lab [address] [place], [place] [address] LDL:HDL Ratio 3.07 High <2.54 [facility] Reference Lab Comment on above: Performed By: #### C BCDIF, TSH, LIPB, CMP, VITD, HBA1C, FT4 #### [facility] Routine Lab [address] [place], [place] [address] TC:HDL Ratio 4.83 Normal <5.10 [facility] Reference Lab Comment on above: Performed By: #### C BCDIF, TSH, LIPB, CMP, VITD, HBA1C, FT4 #### [facility] Routine Lab [address] [place], [place] [address] Triglyceride [Mass/Vol] 156 mg/dL High <150 [facility] Reference Lab Comment on above: Performed By: #### C BCDIF, TSH, LIPB, CMP, VITD, HBA1C, FT4 #### [facility] Routine Lab [address] [place], [place] [id number] TSHon 03-01-2020 TSH Qn 2.250 uU/mL Normal 0.270-4.20 0 [facility] Reference Lab Comment on above: Performed By: #### C BCDIF, TSH, LIPB, CMP, VITD, HBA1C, FT4 #### [facility] Routine Lab [address] [address] Vitamin D 25 Hydroxyon 03-01 Vitamin D 25 Hydroxy 82.2 ng/mL High 31.0-80.0 [facility] Reference Lab Comment on above: Performed By: #### H BA1C, SERFOL, RETIC, B12, FERR #### [facility] Routine Lab [address] [address] Lipid Panel, Basicon 020 Fasting Time 12 hrs Normal [facility] Reference Lab Comment on above: Performed By: #### C BCDIF, TSH, LIPB, CMP, VITD, HBA1C, FT4 #### [facility] Routine Lab [address] [id number] Erythrocyte distribution wid th standard deviationon 01-27-2019 Erythrocyte distribution width (RBC) [Entitic vol] 43.8 fL 35.1-43.[address] [facility] Laboratory - Hematology and Cell countson 01-27-2019 Erythrocyte distribution width (RBC) [Ratio] 13.1 % 11.6-14.[address] [facility] Total cell counton 9 Cells counted Molgen (Bld/Tiss) [#] Not Reportable [facility] CYTOLOGYon 06-02-2018 CYTOLOGY ADDITIONAL PROCEDURES PRESENT Specimen #: [id number] Physician: CARLA MEJÍA SUBMITTEDA: VAGINAL WALL, SCREENING, FLUID FINAL DIAGNOSISA. VAGINAL WALL, SCREENING, FLUIDSatisfactory for interpretation.Negative for intraepithelial lesion or malignancy.This specimen has been analyzed by the ThinPrep Imaging System, anautBloomspoted imaging and review system, which assists the laboratory inevaluating cells on ThinPrep Pap tests. Following automated imaging,selected hernandez from every slide are reviewed by a digital composer.JEN Chatterjee(ASCP) (Electronic Signature) ADDITIONAL PROCEDURE(S)HUMAN PAPILLOMA VIRUS Date Ordered: 06/03/2018 Date Reported: 06/04/2018 Procedure Results and InterpretationNegative for HPV DNA high risk type 16 by PCR.Negative for HPV DNA high risk type 18 by PCR.Negative for HPV DNA high risk types: 31,33,35,39,45,51,52,56,58, 59,66,68by PCR.This test was developed and its performance characteristics [facility] ([facility]It has not been cleared or approved by the FDA. [facility] is regulated underCLIA as qualified to perform high-complexity testing. This test is used forclinical purposes. It should not be regarded as investigational or forresearch.CLINICAL DATA HPV Testing: Automatic HPV typing (HPV)Date of Last Menstrual Period:unknownClinical History:ROUTINESTAINSA: VAGINAL WALL, SCREENING, FLUID THIN PREP GYNJennifer Carlos Rain, Laboratory DirectorPatient ID #: [id number] of Report: 06/08/2018Date of Procedure: 06/02/2018Date of Receipt: 06/03/2018Submitted by: NIESHA MEJÍACLocation: Diagnostic interpretation performed at [facility], [address] [place] [address].The Pap Smear is a screening test for cervical cancer. False negativeresults occur with all screening tests, emphasizing the need forrescreening at recommended intervals, and clinical correlation. Normal [facility] Reference Lab Comment on above: Performed By: #### C ####See report for performing lab information. Vital Signs Date Time Vital Sign Value Performing Clinician Facility 04-20-2025 09:56-0400 Body height 149.86 cm Lucita Agarwal NP-C Work Phone: 5(405)225-929483 [place] [address] 04-20-2025 09:56-0400 Body mass index (BMI) [Ratio] 39.9 kg/m2 Lucita Agarwal NP-C Work Phone: 8(732)200-241083 [place] [address] 04-20-2025 09:56-0400 Body weight 89.81 kg Lucita Agarwal NP-C Work Phone: 2(369)562-968683 [address] 04-20-2025 09:56-0400 Diastolic blood pressure 82 mm[Hg] Lucita Agarwal NP-C Work Phone: 9(717)882-608883 [place] [address] 04-20-2025 09:56-0400 Heart rate 86 /min Lucita Agarwal NP-C Work Phone: 2(866)409-928683 [place] [address] 04-20-2025 09:56-0400 Respiratory rate 17 /min Lucita Agarwal NP-C Work Phone: 6(410)076-435483 [place] [address] 04-20-2025 09:56-0400 SaO2% (BldA) [Mass fraction] 93 % Lucita Agarwal NP-C Work Phone: 8(325)437-249976 [place] [address] 04-20-2025 09:56-0400 Systolic blood pressure 147 mm[Hg] Lucita Agarwal MEDICAL OFFICE ADMINISTRATOR-C Work Phone: 5(221)741-509876 [place] [address] 03-18-2025 12:28-0400 Body height 149.86 cm Lucita Agarwal MEDICAL OFFICE ADMINISTRATOR-C Work Phone: 1(166)738-959076 [place] [address] 03-18-2025 12:28-0400 Body mass index (BMI) [Ratio] 39.9 kg/m2 Lucita Agarwal MEDICAL OFFICE ADMINISTRATOR-C Work Phone: 7(050)731-998776 [place] [address] 03-18-2025 12:28-0400 Body temperature 97.1 [degF] Lucita Agarwal MEDICAL OFFICE ADMINISTRATOR-C Work Phone: 8(796)561-270976 [place] [address] 03-18-2025 12:28-0400 Body weight 89.58 kg Lucita Agarwal MEDICAL OFFICE ADMINISTRATOR-C Work Phone: 3(639)062-933776 [place] [address] 03-18-2025 12:28-0400 Diastolic blood pressure 81 mm[Hg] Lucita Agarwal MEDICAL OFFICE ADMINISTRATOR-C Work Phone: 8(674)524-943676 [place] [address] 03-18-2025 12:28-0400 Heart rate 52 /min Lucitaminnie Agarwal MEDICAL OFFICE ADMINISTRATOR-C Work Phone: 0(841)485-237176 [place] [address] 03-18-2025 12:28-0400 Respiratory rate 18 /min Lucita Agarwal MEDICAL OFFICE ADMINISTRATOR-C Work Phone: 5(497)368-852576 [place] [address] 03-18-2025 12:28-0400 SaO2% (BldA) [Mass fraction] 97 % Lucita Agarwal MEDICAL OFFICE ADMINISTRATOR-C Work Phone: 8(129)550-195476 [place] [address] 03-18-2025 12:28-0400 Systolic blood pressure 142 mm[Hg] Lucita Agarwal MEDICAL OFFICE ADMINISTRATOR-C Work Phone: 3(570)256-044776 [place] [address] 02-03-2025 11:50-0400 Body temperature 98.3 [degF] Lucita Agarwal MEDICAL OFFICE ADMINISTRATOR-C Work Phone: 7(063)594-662476 [place] [address] 02-03-2025 11:50-0400 Diastolic blood pressure 60 mm[Hg] Lucita Agarwal MEDICAL OFFICE ADMINISTRATOR-C Work Phone: 1(219)932-631876 [place] [address] 02-03-2025 11:50-0400 Heart rate 72 /min Lucita Agarwal MEDICAL OFFICE ADMINISTRATOR-C Work Phone: 0(463)631-660576 [place] [address] 02-03-2025 11:50-0400 Respiratory rate 16 /min Lucita Agarwal MEDICAL OFFICE ADMINISTRATOR-C Work Phone: 8(054)582-812676 [place] [address] 02-03-2025 11:50-0400 SaO2% (BldA) [Mass fraction] 96 % Lucita Agarwal MEDICAL OFFICE ADMINISTRATOR-C Work Phone: 0(812)183-226476 [place] [address] 02-03-2025 11:50-0400 Systolic blood pressure 100 mm[Hg] Lucita Agarwal MEDICAL OFFICE ADMINISTRATOR-C Work Phone: 0(975)306-798076 [place] [address] 12-09-2024 15:20-0500 Body height 149.86 cm Lucita Agarwal MEDICAL OFFICE ADMINISTRATOR-C Work Phone: 1(760)392-386776 [place] [address] 12-09-2024 15:20-0500 Body mass index (BMI) [Ratio] 42.4 kg/m2 Lucita Agarwal MEDICAL OFFICE ADMINISTRATOR-C Work Phone: 7(468)487-311276 [place] [address] 12-09-2024 15:20-0500 Body weight 95.25 kg Lucita Agarwal MEDICAL OFFICE ADMINISTRATOR-C Work Phone: 4(652)333-852776 [place] [address] 12-09-2024 15:20-0500 Diastolic blood pressure 77 mm[Hg] Lucita Agarwal MEDICAL OFFICE ADMINISTRATOR-C Work Phone: 9(811)081-297076 [place] [address] 12-09-2024 15:20-0500 Heart rate 76 /min Lucita Agarwal MEDICAL OFFICE ADMINISTRATOR-C Work Phone: 1(877)546-388876 [place] [address] 12-09-2024 15:20-0500 Respiratory rate 18 /min Lucita Agarwal MEDICAL OFFICE ADMINISTRATOR-C Work Phone: 1(960)179-486976 [place] [address] 12-09-2024 15:20-0500 Systolic blood pressure 127 mm[Hg] Lucita Agarwal MEDICAL OFFICE ADMINISTRATOR-C Work Phone: 5(672)119-091176 [place] [address] 09-28-2024 15:16-0500 Body mass index (BMI) [Ratio] 42.6 kg/m2 Lucita Agarwal MEDICAL OFFICE ADMINISTRATOR-C Work Phone: 7(602)933-166376 [place] [address] 09-28-2024 15:16-0500 Body weight 95.7 kg Lucita Agarwal MEDICAL OFFICE ADMINISTRATOR-C Work Phone: 0(226)589-317576 [place] [address] 09-28-2024 15:16-0500 Diastolic blood pressure 66 mm[Hg] Lucita Agarwal MEDICAL OFFICE ADMINISTRATOR-C Work Phone: 2(486)846-599876 [place] [address] 09-28-2024 15:16-0500 Heart rate 49 /min Lucita Agarwal MEDICAL OFFICE ADMINISTRATOR-C Work Phone: 1(337)018-054576 [place] [address] 09-28-2024 15:16-0500 Respiratory rate 16 /min Lucita Agarwal MEDICAL OFFICE ADMINISTRATOR-C Work Phone: 6(725)660-898976 [place] [address] 09-28-2024 15:16-0500 Systolic blood pressure 126 mm[Hg] Lucita Agarwal MEDICAL OFFICE ADMINISTRATOR-C Work Phone: 8(944)821-369376 [place] [address] 09-21-2024 09:24-0500 Body temperature 97.8 [degF] Lucita Agarwal MEDICAL OFFICE ADMINISTRATOR-C Work Phone: 2(584)213-813476 [place] [address] 09-21-2024 09:24-0500 Diastolic blood pressure 69 mm[Hg] Lucita Agarwal MEDICAL OFFICE ADMINISTRATOR-C Work Phone: 4(153)391-097276 [place] [address] 09-21-2024 09:24-0500 Heart rate 77 /min Lucita Agarwal MEDICAL OFFICE ADMINISTRATOR-C Work Phone: 8(708)882-476976 [place] [address] 09-21-2024 09:24-0500 Respiratory rate 18 /min Lucita Agarwal MEDICAL OFFICE ADMINISTRATOR-C Work Phone: 7(487)621-624176 [place] [address] 09-21-2024 09:24-0500 SaO2% (BldA) [Mass fraction] 97 % Lucita Agarwal MEDICAL OFFICE ADMINISTRATOR-C Work Phone: 2(884)011-537176 [place] [address] 09-21-2024 09:24-0500 Systolic blood pressure 132 mm[Hg] Lucita Agarwal MEDICAL OFFICE ADMINISTRATOR-C Work Phone: 4(734)575-333776 [place] [address] 09-21-2024 07:10-0500 Body mass index (BMI) [Ratio] 42.5 kg/m2 Lucita Agarwal MEDICAL OFFICE ADMINISTRATOR-C Work Phone: 0(849)940-032476 [place] [address] 09-21-2024 07:10-0500 Body weight 95.5 kg Lucita BREWER Work Phone: 6(057)234-307876 [place] [address] 03-04-2024 13:19-0400 Body weight 103.64 kg Lucita BREWER Work Phone: 2(937)591-929776 [place] [address] 09-04-2023 13:32-0500 Body height 149.86 cm [facility] Work Phone: 4(036)639-481776 [place] [address] 09-04-2023 13:30-0500 Body mass index (BMI) [Ratio] 44.6 kg/m2 [facility] Work Phone: 1(425)618-906676 [place] [address] 09-04-2023 13:30-0500 Body temperature 97.8 [degF] [facility] Work Phone: 5(008)044-230376 [place] [address] 09-04-2023 13:30-0500 Body weight 100.35 kg [facility] Work Phone: 3(189)774-917576 [place] [address] 09-04-2023 13:30-0500 Diastolic blood pressure 75 mm[Hg] [facility] Work Phone: 0(254)503-819676 [place] [address] 09-04-2023 13:30-0500 Heart rate 66 /min [facility] Work Phone: 0(996)039-190076 [place] [address] 09-04-2023 13:30-0500 Respiratory rate 18 /min [facility] Work Phone: 0(756)999-366076 [place] [address] 09-04-2023 13:30-0500 SaO2% (BldA) [Mass fraction] 97 % [facility] Work Phone: 3(337)344-463476 [place] [address] 09-04-2023 13:30-0500 Systolic blood pressure 121 mm[Hg] [facility] Work Phone: 9(294)194-274676 [place] [address] 03-11-2023 08:36-0400 Body height 149.8 cm Marsha Harris MD Work Phone: [facility] 03-11-2023 08:36-0400 Body mass index (BMI) [Ratio] 49.42 kg/m2 Marsha Harris MD Work Phone: [facility] 03-11-2023 08:36-0400 Body weight 110.9 kg Marsha Harris MD Work Phone: [facility] 03-04-2023 13:58-0400 Body height 149.86 cm [facility] Work Phone: 4(226)830-655976 [place] [address] 03-04-2023 13:58-0400 Body mass index (BMI) [Ratio] 49.3 kg/m2 [facility] Work Phone: 7(535)784-245976 [place] [address] 03-04-2023 13:58-0400 Body temperature 97.9 [degF] [facility] Work Phone: 6(052)393-400476 [place] [address] 03-04-2023 13:58-0400 Body weight 110.78 kg [facility] Work Phone: 0(181)309-958176 [place] [address] 03-04-2023 13:58-0400 Heart rate 52 /min [facility] Work Phone: 0(289)338-936276 [place] [address] 03-04-2023 13:58-0400 Respiratory rate 16 /min [facility] Work Phone: 9(111)245-569476 [place] [address] 03-04-2023 13:58-0400 SaO2% (BldA) [Mass fraction] 97 % [facility] Work Phone: 8(273)276-015476 [place] [address] 03-03-2023 08:21-0400 Diastolic blood pressure 79 mm[Hg] Marsha Harris MD Work Phone: [facility] 03-03-2023 08:21-0400 Heart rate 49 /min Marsha Harris MD Work Phone: [facility] 03-03-2023 08:21-0400 Systolic blood pressure 162 mm[Hg] Marsha Harris MD Work Phone: [facility] 01-23-2023 14:27-0400 Body height 149.86 cm [facility] Work Phone: 2(963)003-844076 [place] [address] 01-23-2023 14:27-0400 Body mass index (BMI) [Ratio] 47.5 kg/m2 [facility] Work Phone: 5(611)329-355676 [place] [address] 01-23-2023 14:27-0400 Body weight 106.7 kg [facility] Work Phone: [facility] 01-23-2023 14:27-0400 Diastolic blood pressure 60 mm[Hg] [facility] Work Phone: [facility] 01-23-2023 14:27-0400 Heart rate 60 /min [facility] Work Phone: [facility] 01-23-2023 14:27-0400 Respiratory rate 16 /min [facility] Work Phone: [facility] 01-23-2023 14:27-0400 Systolic blood pressure 116 mm[Hg] [facility] Work Phone: [facility] 12-23-2022 13:20-0500 Diastolic blood pressure 79 mm[Hg] Mrasha Harris MD Work Phone: [facility] 12-23-2022 13:20-0500 Heart rate 49 /min Marsha Harris MD Work Phone: [facility] 12-23-2022 13:20-0500 Systolic blood pressure 162 mm[Hg] Marsha Harris MD Work Phone: [facility] 09-25-2022 10:53-0500 Body height 149.86 cm [facility] Work Phone: [facility] Work Phone: 09-25-2022 10:53-0500 Body mass index (BMI) [Ratio] 48 kg/m2 [facility] Work Phone: [facility] Work Phone: 09-25-2022 10:53-0500 Body temperature 98 [degF] [facility] Work Phone: [facility] Work Phone: 09-25-2022 10:53-0500 Body weight 107.95 kg [facility] Work Phone: [facility] Work Phone: 09-25-2022 10:53-0500 Diastolic blood pressure 85 mm[Hg] [facility] Work Phone: [facility] Work Phone: 09-25-2022 10:53-0500 Heart rate 45 /min [facility] Work Phone: [facility] Work Phone: 09-25-2022 10:53-0500 Respiratory rate 16 /min [facility] Work Phone: [facility] Work Phone: 09-25-2022 10:53-0500 SaO2% (BldA) [Mass fraction] 98 % [facility] Work Phone: [facility] Work Phone: 09-25-2022 10:53-0500 Systolic blood pressure 151 mm[Hg] [facility] Work Phone: [facility] Work Phone: 09-11-2022 09:40-0500 Body temperature 97.2 [degF] [facility] Work Phone: [facility] Work Phone: 09-11-2022 09:40-0500 Body weight 107.5 kg [facility] Work Phone: [facility] Work Phone: 09-11-2022 09:40-0500 Diastolic blood pressure 63 mm[Hg] [facility] Work Phone: [facility] Work Phone: 09-11-2022 09:40-0500 Heart rate 50 /min [facility] Work Phone: [facility] Work Phone: 09-11-2022 09:40-0500 Respiratory rate 17 /min [facility] Work Phone: [facility] Work Phone: 09-11-2022 09:40-0500 SaO2% (BldA) [Mass fraction] 99 % [facility] Work Phone: [facility] Work Phone: 09-11-2022 09:40-0500 Systolic blood pressure 155 mm[Hg] [facility] Work Phone: [facility] Work Phone: 09-03-2022 13:05-0500 Body height 149.86 cm [facility] Work Phone: [facility] Work Phone: 09-03-2022 13:05-0500 Body mass index (BMI) [Ratio] 47.9 kg/m2 [facility] Work Phone: [facility] Work Phone: 09-03-2022 13:05-0500 Body temperature 98.2 [degF] [facility] Work Phone: [facility] Work Phone: 09-03-2022 13:05-0500 Body weight 107.55 kg [facility] Work Phone: [facility] Work Phone: 09-03-2022 13:05-0500 Diastolic blood pressure 72 mm[Hg] [facility] Work Phone: [facility] Work Phone: 09-03-2022 13:05-0500 Heart rate 46 /min [facility] Work Phone: [facility] Work Phone: 09-03-2022 13:05-0500 Respiratory rate 18 /min [facility] Work Phone: [facility] Work Phone: 09-03-2022 13:05-0500 SaO2% (BldA) [Mass fraction] 96 % [facility] Work Phone: [facility] Work Phone: 09-03-2022 13:05-0500 Systolic blood pressure 124 mm[Hg] [facility] Work Phone: [facility] Work Phone: 06-04-2022 15:18-0400 Body mass index (BMI) [Ratio] 47.5 kg/m2 [facility] Work Phone: [facility] Work Phone: 06-04-2022 15:18-0400 Body weight 106.59 kg [facility] Work Phone: [facility] Work Phone: 06-04-2022 15:18-0400 Diastolic blood pressure 60 mm[Hg] [facility] Work Phone: [facility] Work Phone: 06-04-2022 15:18-0400 Systolic blood pressure 130 mm[Hg] [facility] Work Phone: [facility] Work Phone: 04-22-2022 14:23-0400 Body height 149.[address] Candice Rossi Work Phone: [facility] Work Phone: 04-22-2022 14:23-0400 Diastolic blood pressure 70 mm[Hg] Dr. Candice Rossi Work Phone: [facility] Work Phone: 04-22-2022 14:23-0400 Systolic blood pressure 160 mm[Hg] Dr. Candice Rossi Work Phone: [facility] Work Phone: 04-22-2022 14:23-0400 Body mass index (BMI) [Ratio] 47.8 kg/m2 Dr. Candice Rossi Work Phone: [facility] Work Phone: 04-22-2022 14:23-0400 Body weight 107.[address] Candice Rossi Work Phone: [facility] Work Phone: 04-22-2022 14:23-0400 Heart rate 56 /min Dr. Candice Rossi Work Phone: [facility] Work Phone: 04-22-2022 14:23-0400 Respiratory rate 18 /min Dr. Candice Rossi Work Phone: [facility] Work Phone: 04-22-2022 14:23-0400 SaO2% (BldA) [Mass fraction] 97 % Dr. Candice Rossi Work Phone: [facility] Work Phone: 01-02-2022 13:56-0500 Body mass index (BMI) [Ratio] 46 kg/m2 Dr. Candice Rossi Work Phone: [facility] Work Phone: 01-02-2022 13:56-0500 Body temperature 97.8 [degF] Dr. Candice Rossi Work Phone: [facility] Work Phone: 01-02-2022 13:56-0500 Body weight 103.[address] Candice Rossi Work Phone: [facility] Work Phone: 01-02-2022 13:56-0500 Diastolic blood pressure 72 mm[Hg] Dr. Candice Rossi Work Phone: [facility] Work Phone: 01-02-2022 13:56-0500 Heart rate 56 /min Dr. Candice Rossi Work Phone: [facility] Work Phone: 01-02-2022 13:56-0500 Respiratory rate 16 /min Dr. Candice Rossi Work Phone: [facility] Work Phone: 01-02-2022 13:56-0500 SaO2% (BldA) [Mass fraction] 98 % Dr. Candice Rossi Work Phone: [facility] Work Phone: 01-02-2022 13:56-0500 Systolic blood pressure 168 mm[Hg] Dr. Candice Rossi Work Phone: [facility] Work Phone: 01-02-2022 12:56-0500 Body height 149.86 cm [facility] Work Phone: [facility] Work Phone: 01-02-2022 12:56-0500 Body mass index (BMI) [Ratio] 46 kg/m2 [facility] Work Phone: [facility] Work Phone: 01-02-2022 12:56-0500 Body temperature 97.8 [degF] [facility] Work Phone: [facility] Work Phone: 01-02-2022 12:56-0500 Body weight 103.47 kg [facility] Work Phone: [facility] Work Phone: 01-02-2022 12:56-0500 Diastolic blood pressure 72 mm[Hg] [facility] Work Phone: [facility] Work Phone: 01-02-2022 12:56-0500 Heart rate 56 /min [facility] Work Phone: [facility] Work Phone: 01-02-2022 12:56-0500 Respiratory rate 16 /min [facility] Work Phone: [facility] Work Phone: 01-02-2022 12:56-0500 SaO2% (BldA) [Mass fraction] 98 % [facility] Work Phone: [facility] Work Phone: 01-02-2022 12:56-0500 Systolic blood pressure 168 mm[Hg] [facility] Work Phone: [facility] Work Phone: 10-06-2021 13:06-0500 Body temperature 97.8 [degF] [facility] Work Phone: [facility] Work Phone: 10-06-2021 13:06-0500 Diastolic blood pressure 56 mm[Hg] [facility] Work Phone: [facility] Work Phone: 10-06-2021 13:06-0500 Heart rate 65 /min [facility] Work Phone: [facility] Work Phone: 10-06-2021 13:06-0500 Respiratory rate 20 /min [facility] Work Phone: [facility] Work Phone: 10-06-2021 13:06-0500 SaO2% (BldA) [Mass fraction] 99 % [facility] Work Phone: [facility] Work Phone: 10-06-2021 13:06-0500 Systolic blood pressure 135 mm[Hg] [facility] Work Phone: [facility] Work Phone: 10-05-2021 11:19-0500 Body weight 98.47 kg [facility] Work Phone: [facility] Work Phone: 10-04-2021 22:16-0500 Body mass index (BMI) [Ratio] 43.8 kg/m2 [facility] Work Phone: [facility] Work Phone: 08-09-2020 14:50-0400 Body mass index (BMI) [Ratio] 47 kg/m2 [facility] Work Phone: [facility] 08-09-2020 14:50-0400 Body temperature 98 [degF] [facility] Work Phone: [facility] 08-09-2020 14:50-0400 Diastolic blood pressure 97 mm[Hg] [facility] Work Phone: [facility] 08-09-2020 14:50-0400 Heart rate 53 /min [facility] Work Phone: [facility] 08-09-2020 14:50-0400 Respiratory rate 14 /min [facility] Work Phone: [facility] 08-09-2020 14:50-0400 SaO2% (BldA) [Mass fraction] 99 % [facility] Work Phone: [facility] 08-09-2020 14:50-0400 Systolic blood pressure 165 mm[Hg] [facility] Work Phone: [facility] Encounters Encounter Date Encounter Type Care Provider Facility Start: 05-02-2025 ambulatory Eder Garber lity:[facility] Start: 04-27-2025 ambulatory Rhett Perry NP Facility :[facility] Start: 04-20-2025 End: 04-20-[address] Eder Castano MD -[facility] Work Phone: Start: 04-20-2025 End: 04-20-2025 ambulatory Lucita Agarwal MEDICAL OFFICE ADMINISTRATOR-C Work Phone: [facility] Work Phone: Start: 04-11-2025 Non-patient / Non-visit Dr. Eder Castano MD -[facility] Start: 04-11-2025 End: 04-11-2025 ambulatory Lucita Agarwal MEDICAL OFFICE ADMINISTRATOR-C Work Phone: [facility] Work Phone: Start: 04-11-2025 End: 04-11-[address] Eder Castano MD -Breast Imaging - Biopsy/[facility] Work Phone: Start: 04-11-2025 End: 04-11-2025 ambulatory Eder Castano Facility:[facility] Start: 03-25-2025 End: 03-25-2025 ambulatory Lucita Agarwal MEDICAL OFFICE ADMINISTRATOR-C Work Phone: [facility] Work Phone: Start: 03-25-2025 End: 03-25-[address] Eder Castano MD -Breast Imaging - Biopsy/[facility] Work Phone: Start: 03-25-2025 End: 03-25-2025 ambulatory Eder Castano Facility:[facility] Start: 03-18-2025 End: 03-18-[address] Eder Castano MD -[facility] Work Phone: Start: 03-18-2025 End: 03-18-2025 ambulatory Eder Castano [place] Start: 03-11-2025 End: 03-11-2025 ambulatory Lucita Agarwal MEDICAL OFFICE ADMINISTRATOR-C Work Phone: [facility] Work Phone: Start: 03-11-2025 End: 03-11-[address] Candice oRssi MD -Outpatient Breast Imaging Work Phone: Start: 03-10-[address] Barbara Rossi MD -[facility] Start: 03-10-2025 End: 03-11-2025 ambulatory Candice Rossi Facility:[facility] Start: 03-04-2025 End: 03-04-2025 ambulatory Lucita Agarwal NP-C Work Phone: [facility] Work Phone: Start: 03-04-2025 End: 03-04-[address] Candice Rossi MD -Outpatient Breast Imaging Work Phone: Start: 03-04-2025 End: 03-04-2025 ambulatory Candice Rossi Facility:[facility] Start: 02-10-2025 End: 02-10-2025 ambulatory Lucita SCHERERC Work Phone: [facility] Work Phone: Start: 02-10-2025 End: 02-10-2025 Patient encounter procedure Eloy SCHERERC -Laboratory, [facility] Start: 02-10-2025 End: 02-10-2025 ambulatory Eloy Bolanos Facility:[facility] Start: 02-03-2025 End: 02-03-2025 ambulatory Lucita Stefano MEDICAL OFFICE ADMINISTRATOR-C Work Phone: [facility] Work Phone: Start: 02-03-2025 End: 02-03-2025 Patient encounter procedure Juliano BOO -[facility] Work Phone: Start: 02-03-2025 End: 02-03-2025 ambulatory Juliano BOO Facility:[facility] Start: 01-28-2025 End: 01-28-2025 Emergency department patient visit LUCITA AGARWAL Facility:[facility] Start: 12-24-2024 Non-patient / Non-visit Dr. Hang Lepe MD -[facility] Work Phone: Start: 12-24-2024 End: 12-24-2024 ambulatory Lucita Agarwal MEDICAL OFFICE ADMINISTRATOR-C Work Phone: [facility] Work Phone: Start: 12-24-2024 End: 12-24-[address] Stewart Newman MD -Pulmonary Services/Neurology Work Phone: Start: 12-24-2024 End: 12-24-2024 ambulatory Stewart Newman Facility:[facility] Start: 12-09-2024 End: 12-09-[address] Stewart Newman MD -[facility] Work Phone: Start: 12-09-2024 End: 12-09-2024 ambulatory Stewart Newman Facility:[facility] Start: 12-02-2024 End: 12-02-2024 Patient encounter procedure Susanna BOO -Nuclear Medicine, [facility] Work Phone: Start: 12-02-2024 End: 12-02-2024 ambulatory Susanna Weathers Facility:[facility] Start: 11-11-2024 End: 11-11-2024 Patient encounter procedure Susanna BOO -[facility] Work Phone: Start: 11-11-2024 End: 11-11-2024 ambulatory Susanna Weathers Facility:[facility] Start: 11-03-2024 End: 11-03-2024 Patient encounter procedure [facility] Lucita Agarwal MEDICAL OFFICE ADMINISTRATOR-C -Laboratory Work Phone: Start: 11-03-2024 End: 11-03-2024 ambulatory Lucita Agarwal [facility] Facility:[facility] Start: 09-28-2024 End: 09-28-2024 Patient encounter procedure Rhett Perry MEDICAL OFFICE ADMINISTRATOR-C -[facility] Work Phone: Start: 09-28-2024 End: 09-28-2024 ambulatory Rhett Perry MEDICAL OFFICE ADMINISTRATOR [place] Start: 09-21-2024 ambulatory Eder Garber lity:[facility] Start: 09-21-2024 End: 09-21-2024 Non-patient / Non-visit Dr. Eder Castano MD -[facility] Start: 09-21-2024 End: 09-21-2024 Admission to same day surgery center Dr. Eder Castano MD -Endoscopy Work Phone: Start: 09-21-2024 End: 09-21-2024 ambulatory Eder Castano Facility:[facility] Start: 09-01-2024 End: 09-01-2024 ambulatory Candice Rossi Facility:[facility] Start: 08-11-2024 End: 08-11-2024 ambulatory Eder Castano [place] Start: 08-03-2024 End: 08-03-2024 ambulatory Lucita Agarwal [facility] Facility:[facility] Start: 07-20-2024 End: 07-20-2024 ambulatory Lucita Stefano [facility] Facility:[facility] Start: 02-17-2024 End: 02-17-[address] [facility] Work Phone: Start: 02-17-2024 End: 02-17-2024 Patient encounter procedure [facility]-Laboratory Work Phone: Start: 12-31-2023 End: 12-31-[address] [facility] Facility:[facility] Start: 12-31-2023 End: 12-31-2023 Patient encounter procedure Marsha Harris MD Work Phone: Ophthalmology Comment on above: Status post cataract extraction and insertion of intraocular lens of left eye (Primary Dx); Pseudophakia of right eye; Type 2 diabetes mellitus without retinopathy (HCC); Punctate keratitis, bilateral; Essential hypertension; Hypercholesterolemia Start: 12-26-2023 End: 12-26-[address] [facility] Facility:[facility] Start: 12-26-2023 End: 12-26-2023 Patient encounter procedure Marsha Harris MD Work Phone: Ophthalmology Comment on above: Status post cataract extraction and insertion of intraocular lens of left eye (Primary Dx); Pseudophakia of right eye; Type 2 diabetes mellitus without retinopathy (HCC); Essential hypertension; Hypercholesteremia Start: 12-15-2023 ambulatory MARSHA HARRIS [facility] Start: 11-26-2023 End: 11-26-2023 ambulatory MARSHA HARRIS Facility:[facility] Start: 09-19-2023 End: 09-19-2023 ambulatory [facility] Facility:[facility] Start: 09-19-2023 End: 09-19-2023 Patient encounter procedure Luis King [facility] Work Phone: [facility] Comment on above: Chronic upset stomac h (Primary Dx) Start: 09-04-2023 Registered Recurring [facility] Work Phone: [facility] Start: 09-04-2023 End: 09-04-2023 Patient encounter procedure [facility] Work Phone: [facility] Work Phone: Start: 09-01-2023 End: 09-01-2023 ambulatory [facility] Work Phone: [facility] Work Phone: Start: 09-01-2023 End: 09-01-2023 Patient encounter procedure [facility] Work Phone: [facility] Work Phone: Start: 06-02-2023 End: 06-02-2023 ambulatory [facility] Work Phone: [facility] Work Phone: Start: 06-02-2023 End: 06-02-2023 Discharged Recurring [facility] Work Phone: [facility]-Physical Therapy Work Phone: Start: 04-16-2023 End: 04-16-2023 ambulatory MARSHA HARRIS Facility:[facility] Start: 04-16-2023 End: 04-16-2023 Patient encounter procedure Marsha Harris MD Work Phone: Ophthalmology Comment on above: Status post cataract extraction and insertion of intraocular lens of right eye (Primary Dx); Combined forms of age-related cataract of left eye Start: 03-19-2023 End: 03-19-[address] [facility] Facility:[facility] Start: 03-14-2023 End: 03-14-[address] 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); Hypertensive heart disease with heart failure ([facility]); Heart failure, unspecified ([facility]); Obstructive sleep apnea (adult) (pediatric); Gastro-esophageal reflux disease without esophagitis; nursing home (current) use of oral hypoglycemic drugs; Allergy status to penicillin; Allergy status to sulfonamides Start: 03-04-2023 End: 03-04-2023 Patient encounter procedure [facility] Work Phone: [facility] Work Phone: Start: 03-03-2023 End: 03-03-2023 ambulatory [facility] Facility:[facility] Start: 03-03-2023 End: 03-03-2023 Patient encounter procedure Marsha Harris MD Work Phone: Ophthalmology Comment on above: Combined forms of ag e-related cataract of right eye (Primary Dx); Combined forms of age-related cataract of left eye; Punctate keratitis, bilateral; Dry eye syndrome of both eyes; Type 2 diabetes mellitus without retinopathy (HCC); Congestive heart failure, unspecified HF chronicity, unspecified heart failure type (HCC); Essential hypertension; Sleep apnea, unspecified type; Bradycardia Start: 02-26-2023 End: 02-26-2023 ambulatory [facility] Work Phone: [facility] Work Phone: Start: 02-26-2023 End: 02-26-2023 Patient encounter procedure [facility] Work Phone: [facility]-Outpatient Breast Imaging Start: 02-05-2023 End: 02-05-2023 ambulatory [facility] Facility:[facility] Start: 01-23-2023 Patient encounter status [facility] Work Phone: [facility] Start: 01-23-2023 End: 01-23-2023 Admission to same day surgery center [facility] Work Phone: [facility] Start: 01-23-2023 End: 01-23-2023 Patient encounter procedure [facility] Work Phone: [facility] Start: 12-23-2022 End: 12-23-2022 Patient encounter procedure Marsha Harris MD Work Phone: Ophthalmology Comment on above: Combined forms of ag e-related cataract of right eye (Primary Dx); Combined forms of age-related cataract of left eye; Type 2 diabetes mellitus without retinopathy (HCC); Punctate keratitis, bilateral; Dry eye syndrome of both eyes; Congestive heart failure, unspecified HF chronicity, unspecified heart failure type (HCC); Essential hypertension; Sleep apnea, unspecified type; Hypercholesterolemia; Bradycardia Start: 09-25-2022 End: 09-25-2022 Patient encounter procedure [facility] Work Phone: [facility] Start: 09-18-2022 Non-patient / Non-visit [facility] Work Phone: [facility] Start: 09-18-2022 End: 09-18-2022 ambulatory [facility] Work Phone: [facility] Work Phone: Start: 09-18-2022 End: 09-18-2022 Patient encounter procedure [facility] Work Phone: [facility]-Breast Imaging - Biopsy/[facility] Start: 09-11-2022 End: 09-11-2022 Patient encounter procedure [facility] Work Phone: [facility] Start: 09-05-2022 End: 09-05-2022 ambulatory [facility] Work Phone: [facility] Work Phone: Start: 09-05-2022 End: 09-05-2022 Patient encounter procedure [facility] Work Phone: [facility]-Outpatient Breast Imaging Start: 09-03-2022 End: 09-03-2022 ambulatory [facility] Work Phone: [facility] Work Phone: Start: 09-03-2022 End: 09-03-2022 Patient encounter procedure [facility] Work Phone: [facility] Start: 08-29-2022 End: 08-29-2022 ambulatory [facility] Work Phone: [facility] Work Phone: Start: 08-29-2022 End: 08-29-2022 Patient encounter procedure [facility] Work Phone: [facility] Start: 06-04-2022 End: 06-04-2022 Patient encounter procedure [facility] Work Phone: [facility] Start: 04-22-2022 End: 04-22-[address] Candice Rossi Work Phone: [facility] Start: 02-25-2022 End: 02-25-[address] Candice Rossi Work Phone: [facility]-Outpatient Breast Imaging Start: 01-10-2022 End: 01-10-2022 Patient encounter procedure [facility] Work Phone: [facility]-Laboratory Start: 01-02-2022 End: 01-02-2022 Patient encounter procedure [facility] Work Phone: [facility] Start: 10-15-2021 Patient encounter procedure [facility] Work Phone: [facility]-Laboratory Start: 10-06-2021 Non-patient / Non-visit [facility] Work Phone: [facility] Start: 10-05-2021 Non-patient / Non-visit [facility] Work Phone: [facility] Start: 10-04-2021 Non-patient / Non-visit [facility] Work Phone: [facility] Start: 10-04-2021 End: 10-06-2021 [facility] and [facility] of [facility] Start: 10-04-2021 Patient encounter procedure [facility] Work Phone: [facility]-Laboratory Procedures Date Procedure Procedure Detail Performing Clinician Start: 04-11-2025 Biopsy of breast Jose David Agarwal MEDICAL OFFICE ADMINISTRATOR-C Work Phone: Start: 03-25-2025 Ultrasonography of breast Lucita Agarwal MEDICAL OFFICE ADMINISTRATOR-C Work Phone: Start: 03-11-2025 Ultrasonography of breast Lucita Agarwal MEDICAL OFFICE ADMINISTRATOR-C Work Phone: Start: 03-11-2025 Mammography Lucita Fr anklin MEDICAL OFFICE ADMINISTRATOR-C Work Phone: Start: 03-10-2025 Estimated creatinine clearance Lucita Agarwal MEDICAL OFFICE ADMINISTRATOR-C Work Phone: Start: 03-04-2025 Screening mammography Shannon Agarwal MEDICAL OFFICE ADMINISTRATOR-C Work Phone: Start: 02-03-2025 X-ray of chest, PA a nd lateral views Lucita Agarwal MEDICAL OFFICE ADMINISTRATOR-C Work Phone: Start: 12-09-2024 Evaluation of diagno stic study results Lucita Agarwal MEDICAL OFFICE ADMINISTRATOR-C Work Phone: Start: 12-02-2024 Radionuclide gastric emptying study Lucita Agarwal MEDICAL OFFICE ADMINISTRATOR-C Work Phone: Start: 09-28-2024 Evaluation of diagno stic study results Lucita Agarwal MEDICAL OFFICE ADMINISTRATOR-C Work Phone: Start: 09-01-2023 MRI of bilateral ryan asts with contrast [facility] Work Phone: Start: 03-13-2023 Glucose [Mass/volume ] in Serum or Plasma Marsha Harris MD Work Phone: Start: 02-26-2023 Screening mammography [facility] Work Phone: Start: 02-26-2023 Ultrasonography of breast [facility] Work Phone: Start: 09-18-2022 Ultrasonography guid ed biopsy of breast [facility] Work Phone: Start: 09-05-2022 Mammography [facility] Work Phone: Start: 09-05-2022 Ultrasonography of breast [facility] Work Phone: Start: 08-29-2022 MRI of bilateral ryan asts with contrast [facility] Work Phone: Start: 02-25-2022 Screening mammography Eliezer Sesayus Work Phone: Start: 10-04-2021 End: 10-04-2021 Ova OR parasites identification [facility] Work Phone: Start: 01-16-2015 Colonoscopy Marsha curry MD Work Phone: Plan of Treatment Date Care Activity Detail Author Start: 04-11-2025 Bx breast w/device 1st lesion stereotactic guid BX BREAST 1ST LESION STRTCTC [facility] Start: 11-26-2024 BP Controlled (<130/80) BP Controlled (<130/80) [facility] Start: 11-26-2024 Glaucoma screening Dilated Retinal Exam [facility] Start: 09-21-2024 Esophagogastroduodenoscopy transoral diagnostic EGD DIAGNOSTIC BRUSH WASH [facility] Start: 09-21-2024 Patient discharge [facility] Start: 03-31-2024 Hepatitis B surface antibody level LDL CHOLESTEROL [facility] Start: 11-29-2023 Hepatitis C antibody, confirmatory test DILATED RETINAL EXAM [facility] Start: 10-27-2023 Advance Directive Discussion Advance Directive Discussion [facility] Start: 10-27-2023 Depression Assessment Depression Assessment [facility] Start: 06-27-2023 Influenza vaccination [facility] Start: 06-04-2023 Hemoglobin A1c measurement HbA1C [facility] Start: 06-04-2023 Hemoglobin A1c/Hemoglobin.total in Blood HBA1C [facility] Start: 10-27-2022 ADVANCE DIRECTIVE DISCUSSION ADVANCE DIRECTIVE DISCUSSION [facility] Start: 10-27-2022 DEPRESSION ASSESSMENT DEPRESSION ASSESSMENT [facility] Start: 09-05-2022 Mammography DIAG MAMM W/CAD, UNILAT [facility] Work Phone: Start: 09-05-2022 MG Breast Diagnostic [facility] Work Phone: Start: 09-05-2022 Ultrasonography of breast Breast Limited Unilateral [facility] Work Phone: Start: 09-05-2022 US Breast limited [facility] Work Phone: Start: 06-27-2022 Influenza vaccination INFLUENZA (#1) [facility] Start: 07-19-2019 MG Breast - bilateral Screening [facility] Start: 02-18-[address] [facility] Start: 02-02-[address] [facility] Start: 01-16-2018 Colonoscopy COLONOSCOPY [facility] Start: 01-16-2018 COLORECTAL CANCER SCREENING COLORECTAL CANCER SCREENING [facility] Start: 01-16-2018 Screening for malignant neoplasm of colon [facility] Start: 2014 PNEUMOCOCCAL: 65+ (1 - PCV) PNEUMOCOCCAL: 65+ (1 - PCV) [facility] Start: 03-31-2013 Hepatitis B surface antibody level LDL CHOLESTEROL [facility] Start: 2009 Hepatitis B Vaccine (1 of 3 - Risk 3-dose series) Hepatitis B Vaccine (1 of 3 - Risk 3-dose series) [facility] Start: 2009 RSV Vaccine (1 - 1-dose 60+ series) RSV Vaccine (1 - 1-dose 60+ series) [facility] Start: 1999 SHINGRIX VACCINE (1 of 2) SHINGRIX VACCINE (1 of 2) [facility] Start: 1999 Zoster Vaccines (1 of 2) Zoster Vaccines (1 of 2) [facility] Start: 1994 COLOGUARD (FIT-DNA) COLOGUARD (FIT-DNA) [facility] Start: [address] COLONOGRAPHY [facility] Start: 1994 FECAL OCCULT BLOOD FECAL OCCULT BLOOD [facility] Start: 1994 Screening for malignant neoplasm of colon [facility] Start: 1994 SIGMOIDOSCOPY SIGMOIDOSCOPY [facility] Start: 1989 Mammography [facility] Start: 1989 Screening for malignant neoplasm of breast [facility] Start: 1971 DTaP/Tdap/Td Vaccines (1 - Tdap) DTaP/Tdap/Td Vaccines (1 - Tdap) [facility] Start: 1968 Urine microalbumin profile [facility] Start: 1968 Urine screening for protein Diabetes: Urine Protein Screening [facility] Start: 1967 ANNUAL PCP TEAM CHRONIC DISEASE VISIT ANNUAL PCP TEAM CHRONIC DISEASE VISIT [facility] Start: 1967 BP CONTROLLED (<130/80) BP CONTROLLED (<130/80) [facility] Start: 1967 HEPATITIS C SCREENING HEPATITIS C SCREENING [facility] Start: 1967 Hepatitis C screening Hepatitis C Screening [facility] Start: 1959 3 comp foot exam completed DIABETIC FOOT EXAM [facility] Start: 1959 Diabetic foot examination [facility] Start: 1959 Glaucoma screening Diabetes: Retinopathy Screening [facility] Start: 1959 Hepatitis B screening URINE ALBUMIN:CREATININE RATIO [facility] Start: 1955 Pneumococcal Vaccine: 65+ (1 - PCV) Pneumococcal Vaccine: 65+ (1 - PCV) [facility] Start: 1955 Pneumococcal Vaccine: 65+ (1 of 2 - PCV) Pneumococcal Vaccine: 65+ (1 of 2 - PCV) [facility] Start: 1955 Pneumococcal Vaccine: 65+ Years (1 - PCV) Pneumococcal Vaccine: 65+ Years (1 - PCV) [facility] Start: 1955 PNEUMOCOCCAL: 65+ (1 - PCV) PNEUMOCOCCAL: 65+ (1 - PCV) [facility] Start: 06-07-1950 COVID-19 VACCINE (#1) COVID-19 VACCINE (#1) [facility] Start: 1949 Hemoglobin A1c measurement Diabetes: Hemoglobin A1C [facility] Start: 1949 Lipid panel Lipid Panel [facility] Start: 1949 Screening for malignant neoplasm of colon [facility] Start: 1949 Screening for osteoporosis Bone Density Scan [facility] Start: 1949 Yearly Adult Physical Yearly Adult Physical [facility] CBC W Auto Different ial panel - Blood [facility] Work Phone: CBC W Auto Different ial panel - Blood [facility] MG Breast - bilateral Screening [facility] Work Phone: MG Breast - bilateral Screening [facility] MR Breast - bilatera l WO and W contrast IV [facility] Work Phone: MR Breast - bilatera l WO and W contrast IV [facility] Patient Education [facility] Work Phone: Patient referral [facility] Work Phone: XR Chest PA and Lateral [facility] Immunizations Immunization Date Immunization Notes Care Provider Tamar piña 07-27-2021 Influenza virus vaccine [facility] Work Phone: [facility] 06-30-2017 Influenza virus vaccine [facility] Work Phone: [facility] 06-30-2017 influenza virus vaccine, unspecified formulation Luis Osorio BETHANY Work Phone: [facility] Payers Date Payer Category Payer Unknown [id number] 2021 Self-pay [id number] 2019 Medicare [id number] 1950 Unknown [id number] 2.16.84 [id number] Unknown [id number] 2.16.8 40.1.242934.3.579.2.462 Unknown [id number] 2.16.8 40.1.197465.3.579.2.462 Unknown [id number] 2.16.8 40.1.713505.3.579.2.462 Unknown [id number] 2.16.8 40.1.882470.3.579.2.462 Unknown [id number] 2.16.8 40.1.044822.3.579.2.462 Unknown [id number] 2.16.8 40.1.189809.3.579.2.462 Unknown [id number] 2.16.8 40.1.630598.3.579.2.462 Unknown [id number] 2.16.8 40.1.592427.3.579.2.462 Unknown [id number] 2.16.8 40.1.061205.3.579.2.462 Unknown [id number] 2.16.8 40.1.704462.3.579.2.462 Unknown [id number] 2.16.8 40.1.444298.3.579.2.462 Unknown [id number] 2.16.8 40.1.813820.3.579.2.462 Unknown [id number] 2.16.8 40.1.532652.3.579.2.462 Unknown [id number] 2.16.8 40.1.114843.3.579.2.462 Unknown [id number] 2.16.8 40.1.637622.3.579.2.462 Unknown [id number] 2.16.8 40.1.621357.3.579.2.462 Unknown [id number] 2.16.8 40.1.737594.3.579.2.462 Unknown [id number] 2.16.8 40.1.011662.3.579.2.462 Unknown [id number] 2.16.8 40.1.910724.3.579.2.462 Unknown [id number] 2.16.8 40.1.274276.3.579.2.462 Unknown [id number] 2.16.8 40.1.087725.3.579.2.462 Unknown [id number] 2.16.8 40.1.716638.3.579.2.462 Unknown [id number] 2.16.8 40.1.146601.3.579.2.462 Unknown [id number] 2.16.8 40.1.972205.3.579.2.462 Unknown [id number] 2.16.8 40.1.354563.3.579.2.462 Unknown [id number] 2.16.8 40.1.849813.3.579.2.462 Unknown [id number] 2.16.8 40.1.932497.3.579.2.462 Unknown [id number] 2.16.8 40.1.069863.3.579.2.462 Unknown [id number] 2.16.8 40.1.631525.3.579.2.462 Social History Date Type Detail Facility Start: 10-04-2021 End: 09-16-2023 Tobacco smoking status NHIS Unknown if ever smoked [facility] Start: 08-09-2020 Non-smoker [facility] Start: 1950 Sex Assigned At Female W [facility] Start: 09-17-2024 Tobacco smoking stat us NHIS Never smoked tobacco [facility] Work Phone: Start: 12-23-2022 End: 12-31-2023 Alcohol intake Current non-drinker of alcohol (finding) [facility] Start: 1950 Sex Assigned At Not on file [facility] Start: 04-16-2023 End: 11-26-2023 Gender identity Not on file [facility] Work Phone: Start: 04-16-2023 End: 11-26-2023 History of Social function [facility] Start: 01-06-2025 End: 02-15-2025 Sex Female (finding) [facility] Medical Equipment Procedure Code Equipment Code Equipment Origin al Text Equipment Identifier Dates SUTURE,LIGA CLIP MED [id number] FDA Start: 01-15-2019 SUTURE,LIGA CLIP SM LT-100 FDA Start: 01-15-2019 SUTURE,LIGA CLIP MED [id number] FDA Start: 01-15-2019 SUTURE,LIGA CLIP SM LT-100 FDA Start: 01-15-2019 SUTURE,LIGA CLIP MED [id number] FDA Start: 01-15-2019 SUTURE,LIGA CLIP SM LT-100 FDA Start: 01-15-2019 SUTURE,LIGA CLIP MED [id number] FDA Start: 01-15-2019 SUTURE,LIGA CLIP SM LT-100 FDA Start: 01-15-2019 SUTURE,LIGA CLIP MED [id number] FDA Start: 01-15-2019 SUTURE,LIGA CLIP SM LT-100 FDA Start: 01-15-2019 SUTURE,LIGA CLIP MED [id number] FDA Start: 01-15-2019 SUTURE,LIGA CLIP SM LT-100 FDA Start: 01-15-2019 SUTURE,LIGA CLIP MED [id number] FDA Start: 01-15-2019 SUTURE,LIGA CLIP SM LT-100 FDA Start: 01-15-2019 SUTURE,LIGA CLIP MED [id number] FDA Start: 01-15-2019 SUTURE,LIGA CLIP SM LT-100 FDA Start: 01-15-2019 SUTURE,LIGA CLIP MED [id number] FDA Start: 01-15-2019 SUTURE,LIGA CLIP SM LT-100 FDA Start: 01-15-2019 SUTURE,LIGA CLIP MED [id number] FDA Start: 01-15-2019 SUTURE,LIGA CLIP SM LT-100 FDA Start: 01-15-2019 SUTURE,LIGA CLIP MED [id number] FDA Start: 01-15-2019 SUTURE,LIGA CLIP SM LT-100 FDA Start: 01-15-2019 SUTURE,LIGA CLIP MED [id number] FDA Start: 01-15-2019 SUTURE,LIGA CLIP SM LT-100 FDA Start: 01-15-2019 SUTURE,LIGA CLIP MED [id number] FDA Start: 01-15-2019 SUTURE,LIGA CLIP SM LT-100 FDA Start: 01-15-2019 SUTURE,LIGA CLIP MED LT200 FDA Start: 01-15-2019 SUTURE,LIGA CLIP SM LT-100 FDA Start: 01-15-2019 SUTURE,LIGA CLIP MED [id number] FDA Start: 01-15-2019 SUTURE,LIGA CLIP SM LT-100 FDA Start: 01-15-2019 SUTURE,LIGA CLIP MED [id number] FDA Start: 01-15-2019 SUTURE,LIGA CLIP SM LT-100 FDA Start: 01-15-2019 SUTURE,LIGA CLIP MED [id number] FDA Start: 01-15-2019 SUTURE,LIGA CLIP SM LT-100 FDA Start: 01-15-2019 SUTURE,LIGA CLIP MED [id number] FDA Start: 01-15-2019 SUTURE,LIGA CLIP SM LT-100 FDA Start: 01-15-2019 SUTURE,LIGA CLIP MED [id number] FDA Start: 01-15-2019 SUTURE,LIGA CLIP SM LT-100 FDA Start: 01-15-2019 Goals Date Patient Goal Desired Activity /State Functional Status Date Assessment Result Facility 10-06-2021 Functional status Ambulates;Bedrest [facility] Work Phone: Mental Status Date Assessment Result Facility 09-21-2024 Cognitive function Touch/Shaking [facility] Work Phone: 09-21-2024 Cognitive function Patient Orien tation Person;Place [facility] Work Phone: 10-06-2021 Cognitive function Voice/Name [facility] Work Phone: Clinical Notes 11-29-2022 to 04-11-2025 Note Date & Type Note Facility 04-11-2025 Procedure note [facility] 03-25-2025 Radiology Diagnostic study note [facility] Imaging Services [address] [place] [address] Breast Limited Unilateral MR#: [id number] Acct: [id number] Name: WINIFRED VÁSQUEZ Rep #: [id number] : 1950 F 74 From: Eduardo Espinoza MD PCP: KRYSTIAN Ledesma, MEDICAL OFFICE ADMINISTRATOR-C Status: REG CLI Study:Breast Limited Unilateral Date of Exam: 03/25/25 Exam# [id number] Ordering Dr: Eder Dougherty MD PROCEDURE: BREAST LIMITED UNILATERAL 03/25/2025 REASON FOR EXAM: LEFT BREAST MASS TECHNIQUE: Targeted left breast ultrasound. COMPARISON: Prior ultrasound and mammogram dated March 11, 2025. FINDINGS: Left breast ultrasound was targeted to the upper-outer quadrant of the left breast.. The patient was initially scheduled for biopsy. No definite abnormality is seenfor biopsy at the 10 o'clock position of the breast at 3 cm from the nipple. Patient will be rescheduled for stereotactic biopsy on a future date. US/Breast Limited Unilateral IMPRESSION: Impression: The abnormality was not accurately localized for biopsy. The patient will be recalled for stereotactic biopsy. Birads: BI-RADS 0: INCOMPLETE - NEED ADDITIONAL IMAGING EVALUATION. Reading Location: [facility] CC: [facility] MEDICAL OFFICE ADMINISTRATOR-C Lucita Agarwal; Dr. Eder Castano MD ~ Installation And Repair Technician: Signed [facility] 03-11-2025 Radiology Diagnostic study note [facility] Imaging Services [address] [place] [id number] Breast Limited Unilateral MR#: [id number] Acct: [id number] Name: WINIFRED VÁSQUEZ Rep #: [id number] : 1950 F 74 From: Megan Tee MD PCP: Lucita Stefano, VSC, MEDICAL OFFICE ADMINISTRATOR-C Status: REG CLI Study:Breast Limited Unilateral Date of Exam: 03/11/25 Exam# [id number] Ordering Dr: Candice Rossi MD EXAM: BREAST LIMITED UNILATERAL; LT BRST UNILAT JOSE ADD ON; DIAG MAMM W/CAD, UNILAT N/A; 03/11/2025 CLINICAL HISTORY: 74-year-old female recalled from screening for findings in the left breast. Personal history of right breast cancer status post lumpectomy in 2019 with radiation. Family history of breast cancer in 2 sistersat age 63 and 72, as well as in 2 maternal aunts and a paternal aunt. TECHNIQUE: Left diagnostic digital breast tomosynthesis with 2D and 3D images. Computer aided detection. Also targeted left breast ultrasound was performed. COMPARISON: Prior exam(s) dated 03/03/2024, 09/01/2024, 02/26/2023, 09/05/2022. FINDINGS: MAMMOGRAM: TISSUE DENSITY: The breast tissue is composed of scattered area of fibroglandular density. Follow-up examination performed for the irregular mass with associated calcifications in the upper central left breast at middle depth visualized on examination of 03/03/2024. On the present examination the iliac and a mass with associated fine pleomorphic calcifications in the upper central left breast at middle depth persist. Follow-up examination performed for the asymmetry in the left breast visualized on examination of 03/03/2024. On the present examination, the asymmetry in the lateral left breast at middle depth does not persist. LEFT BREAST ULTRASOUND: There is an irregular hypoechoic mass with internal vascular flow and posterior acoustic shadowing in the left breast at 10-11 o'clock 3 cm from the nipple measuring 0.9 x 0.7 x 0.7 cm. This correlates withthe mammographic finding. Also, there are 2 small cyst in the left breast at 1 o'clock 8 cm from the nipple, as well as a small cyst at 11 o'clock 4 cm from the nipple. There is another 0.5 cm cystic mass in the left breast at 12 o'clock 3 cm from the nipple, which was likely previously biopsied however the clip is not well visualized on this examination. There are 2 architecturally normal-appearing left axillary lymph nodes. US/Breast Limited Unilateral IMPRESSION: 1. Suspicious irregular mass in the left breast at 10-11 o'clock 3 cm from the nipple. Recommend tissue sampling with ultrasound-guided core needle biopsy. Left Breast: BIRADS 5 HIGHLY SUGGESTIVE OF MALIGNANCY. OVERALL FINAL ASSESSMENT: BIRADS 5 HIGHLY SUGGESTIVE OF MALIGNANCY. RECOMMENDATION: Ultrasound-guided core needle biopsy is recommended. A letter with findings and recommendations will be mailed to the patient. Reading Location: [id number] CC: [facility] MEDICAL OFFICE ADMINISTRATOR-C Lucita Agarwal; Dr. Candice Rossi MD ~ Installation And Repair Technician: Signed [facility] 02-03-2025 Evaluation note Diagnosis Onset Date Resolution Acute bronchitis acute February 032024 11:34am Acute suppur right otitis media w/spontan rupture of tympanic membrane acute February 03, 2025 11:34am DCIS (ductal carcinoma in situ) chronic March 10, 2025 1 2:45pm Encounter for education resolved March 10, 2025 1 2:45pm Left breast mass acute February 12:17pm [facility] Work Phone: 1(826) 912-259204-10-2025 Radiology Diagnostic study note [facility] Imaging Services [address] [place] [address] Chest PA and Lateral MR#: [id number] Acct: [id number] Name: WINIFRED VÁSQUEZ Rep #: [id number] : 1950 F 74 From: Padmini Vázquez MD PCP: Lucita Agarwal Katerin, MEDICAL OFFICE ADMINISTRATOR-C Status: REG CLI Study:Chest PA and Lateral Date of Exam: 02/03/25 Exam# [id number] Ordering Dr: Katerin Cummins PA PA EXAM: XR Chest, 2 Views CLINICAL INDICATION: COUGH X 1 WEEK TECHNIQUE: Frontal and lateral views of the chest. COMPARISON: No relevant prior studies available. FINDINGS: LUNGS AND PLEURAL SPACES: Unremarkable. No consolidation. No pneumothorax. HEART: Unremarkable. No cardiomegaly. MEDIASTINUM: Unremarkable. Normal mediastinal contour. BONES/JOINTS: Unremarkable. No acute fracture. RAD/Chest PA and Lateral IMPRESSION: No acute cardiopulmonary process. Reading Location: [facility] CC: [facility] MEDICAL OFFICE ADMINISTRATOR-C Lucita Agarwal; EMA Scales ~ Installation And Repair Technician: Signed [facility]04-04-2025 [id number] (AGENT OF COVID-19) RNA: Not detected INFLUENZA A RNA: Detected INFLUENZA B RNA: Not detected RESPIRATORY SYNCYTIAL VIRUS (RSV) RNA: Not detectedNorthern Light Eastern Maine Medical CenterComment on above:Performed By: #### [id number] ####[facility] LABCLIA [id number] [place] [address] [facility]02-13-2025 Evaluation note* Diagnosis Onset Date Resolution Status Admit Date Atrial fibrillation acute 2024 3:17pm Essential hypertension chronic 2024 3:17pm Hyperlipidemia chronic November 272024 3:17pm Acute bronchitis acute February 032024 11:34am Acute suppur right otitis media w/spontan rupture of tympanic membrane acute February 03 11:34am DCIS (ductal carcinoma in situ) chronic March 10, 2025 1 2:45pm Encounter for education resolved 2024 12:45pm [facility] Work Phone: 1(229) 239-724902-13-2025 Evaluation note* Diagnosis Onset Date Resolution Status Admit Date Atrial fibrillation acute 2024 3:17pm Essential hypertension chronic 2024 3:17pm Hyperlipidemia chronic November 272024 3:17pm Acute bronchitis acute February 032024 11:34am Acute suppur right otitis media w/spontan rupture of tympanic membrane acute February 03 11:34am DCIS (ductal carcinoma in situ) chronic March 10, 2025 1 2:45pm Encounter for education resolved 2024 12:45pm Left breast mass acute February 12:17pm [facility] Work Phone: 1(743) 772-986601-16-2025 Evaluation note* Diagnosis Onset Date Resolution Status Admit Date Difficulty swallowing acute Oct 8:10am Early satiety acute October 8:10am Atrial fibrillation acute 2024 3:17pm Essential hypertension chronic Fe bruary 2024 3:17pm Hyperlipidemia chronic November 272024 3:17pm Acute bronchitis acute February 032024 11:34am Acute suppur right otitis me john w/spontan rupture of tympanic membrane acute February 03, 2025 11:34am [facility] Work Phone: 1(910) 512-652712-03-2024 Evaluation note* Diagnosis Onset Date Resolution Status Admit Date Atrial fibrillation acute Decem tricia 2023 2:47pm Essential hypertension chronic De cem2023 2:47pm Hyperlipidemia chronic September 282023 2:47pm Difficulty swallowing acute Oct 8:10am Early satiety acute October 8:10am Atrial fibrillation acute Febru 2024 3:17pm Essential hypertension chronic Fe bruary 2024 3:17pm Hyperlipidemia chronic November 272024 3:17pm [facility] Work Phone: 1(756) 230-442311-26-2024 [facility] Medical Records Department [address] [place] [address] History Physical Exam 09/21/24 0755 MR#: [id number] Acct: [id number] Name: WINIFRED VÁSQUEZ Rep #: [id number] : 1950 73 From: Eder Castano MD PCP: KRYSTIAN Ledesma, MEDICAL OFFICE ADMINISTRATOR-C Status:[facility] Location: [place] [address] History and Physical Date of Admission: 09/21/24 Intake Vital Signs 03/04/2413:19 08/11/2409:18 Height 4 ft 11 in 4 ft 11 in Weight: 228 lb 8 oz 223 lb BMI 46.1 45.0 BP 156/71 H 133/78 H Blood Pressure Location Rt brachial Position Sitting Sitting Respiration 18 18 Pulse 46 L 68 Pulse Source Monitor Temp 97.8 F 97.2 F L Temp Source Temporal Pulse Oximetry (%) 98 99 Oxygen Delivery Method room air room air Intake Visit Reasons: COLONOSCOPY, DSYPHAGIA Chief Complaint: colonoscopy/dysphagia Allergies adhesive tape (plastic tape) Adverse Reaction (Severe, Verified 08/11/24 09:20) Othercephalexin Adverse Reaction (Severe, Verified 08/11/24 09:20) Rashclindamycin Adverse Reaction (Severe, Verified 08/11/24 09:20) RashPenicillins Adverse Reaction (Severe, Verified 08/11/24 09:20) RashSulfa (Sulfonamide Antibiotics) Adverse Reaction (Severe, Verified 08/11/24 09:20) Rash Medications ???Medication ???Instructions ???Recorded ???Confirmed ???Type aspirin 81 mg tablet,delayed 81 mg PO DAILY@0800 health 06/11/17 08/11/24 History release maintenance montelukast 10 mg tablet 10 mg PO DAILY allergies 06/11/17 08/11/24 History albuterol sulfate 90 mcg/actuation 2 puff inhalation Q4H PRN PRN Sob 08/23/17 08/11/24 Rx aerosol inhaler /Or Wheezing ##1 fluticasone 500 mcg-salmeterol 50 1 puff inhalation BID PRN Sob /Or 08/23/17 08/11/24 Rx mcg/dose blistr powdr for Wheezing ##1 inhalation ergocalciferol (vitamin D2) 1,250 50,000 unit PO QWEEK [facility] health 02/10/20 08/11/24 History mcg (50,000 unit) capsule ascorbate calcium (vitamin C) 500 1 gm PO DAILY Check with primary 02/14/21 08/11/24 History mg tablet doctor calcium carbonate (Calcium 600) 600 mg PO DAILY Check with primary 02/14/21 08/11/24 History doctor fexofenadine 180 mg tablet 180 mg PO DAILY Check with primary 02/14/21 08/11/24 History (Rubi Allergy) doctor pravastatin 40 mg tablet 40 mg PO QHS Check with primary 02/14/21 08/11/24 History doctor atenolol 50 mg tablet 50 mg PO DAILY Check with primary 10/04/21 08/11/24 History doctor hydrochlorothiazide 25 mg tablet 25 mg PO DAILY 04/22/22 08/11/24 History lisinopril 40 mg tablet 40 mg PO DAILY 04/22/22 08/11/24 History omeprazole 20 mg capsule,delayed 20 mg PO DAILY Check with primary 04/22/22 08/11/24 History release doctor amlodipine 2.5 mg tablet 2.5 mg PO DAILY 01/23/23 08/11/24 History biotin 1,000 mcg chewable tablet 1,000 mcg PO DAILY 01/23/23 08/11/24 History fluorometholone 0.1 % eye 1 drp ophthalmic (eye) TID 01/23/23 08/11/24 History drops,suspension propylene glycol (PF) 0.6 % eye 1 drp ophthalmic (eye) TID 01/23/23 08/11/24 History drops (Systane Complete PF) oxybutynin chloride 10 mg 10 mg PO DAILY 09/04/23 08/11/24 History tablet,extended release 24 hr meloxicam 15 mg tablet 15 mg PO DAILY 09/16/23 08/11/24 History metformin 500 mg tablet,extended 500 mg PO DAILY 09/16/23 08/11/24 History release 24 hr Have you fallen in the past year?: No PFSH Medical History Asthma Bradycardia Breast cancer, right DCIS (ductal carcinoma in situ) ER+ (estrogen receptor positive status) Essential hypertension 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 cancer Hyperlipidemia Hypertension Nonrheumatic mitral (valve) insufficiency Obesity Obstructive sleep apnea KRISTY (obstructive sleep apnea) Osteoarthritis Osteopenia due to cancer therapy Preoperative cardiovascular examination Skin cancer (melanoma) Type 2 diabetes mellitus Surgical History History of cataract extraction History of right cataract extraction ( 02/2023) S/P skin biopsy History of lumpectomy of right breast (01/15/19) History of breast biopsy (12/2018) History of ankle surgery History of tubal ligation Hx of cholecystectomy Family History Mother Heart disease Breast cancer PER PATIENT MOTHER DID NOT HAVE BREAST CANCER Aunt Breast cancerSister Breast cancer AsthmaFather Colon cancerBrother Colon cancerOther Cancer Social History household members: spouse and children housing: house number of children: 6 Smoking Status: Never smoker second hand exposure: No alcohol intake: never substance use type: does not use caffeine: No emanuel/temple: Holiness seatbelt use: alway (more content not included)...[facility] 12-31-2023 NoteHNO ID: [id number] Author: MARSHA HARRIS MD Service: ? Author Type: Physician Type: Progress Notes Filed: 12/31/2023 16:41 Note Text: ASSESSMENT/PLAN: 1. Status post cataract extraction and insertion of intraocular lens of left eye - ICD9: V45.61, V43.1, ICD10: Z98.42, Z96.1 (primary diagnosis) Intraocular lens well centered Current Ophthalmic Meds prednisoLONE acetate (PRED FORTE) 1 % ophthalmic suspension Use 1 Drop in the left eye three times a day. Until 01/29/2024, then stop keTORolac (ACULAR) 0.5 % ophthalmic solution Use 1 Drop in the left eye three times a day. Until 01/29/2024, then stop Recommended patient see Dr. Smith for refraction and glasses. 2. Pseudophakia of right eye - ICD9: V43.1, ICD10: Z96.1 -Intraocular lens well centered. -Continue to monitor 3. Type 2 diabetes mellitus without retinopathy (HCC) - ICD9: 250.00, ICD10: E11.9 -Continue to monitor for any changes in vision -Please keep your blood sugar under good control to minimize risk of ocular complications from diabetes. -Patient was given both written and verbal information on flashes and floaters. Patient was instructed to call the office ([phone]) immediately upon noticing flashes of light, increase in floaters, or changes in vision. 4. Punctate keratitis, bilateral - ICD9: 370.21, ICD10: H16.143 Current Ophthalmic Meds propylene glycoL (SYSTANE COMPLETE) 0.6 % drop Use 1 Drop in both eyes three times daily. 5. Essential hypertension - ICD9: 401.9, ICD10: I10 6. Hypercholesterolemia - ICD9: 272.0, ICD10: E78.00 -Continue to monitor with primary care physician I have confirmed and edited as necessary the relevant HPI, ophthalmic history, ROS, and the neuro exam findings as obtained by others. I have seen and examined Winifred Vásquez. I have discussed the case and the management of this patient's care with the Resident/Fellow, if applicable. I also have reviewed and agree with the assessment and plan as stated above and agree with all of its relevant components.[facility]03-06-2024 Instructions* Patient Instructions* Marsha Harris MD - 12/31/2023 4:23 PM EST Current Ophthalmic Meds prednisoLONE acetate (PRED FORTE) 1 % ophthalmic suspension Use 1 Drop in the left eye three times a day. Until 01/29/2024, then stop keTORolac (ACULAR) 0.5 % ophthalmic solution Use 1 Drop in the left eye three times a day. Until 01/29/2024, then stop propylene glycoL (SYSTANE COMPLETE) 0.6 % drop Use 1 Drop in both eyes three times daily. Return as directed. If you have any questions please contact our office at [phone]. After office hours or on the weekend, please call Dr. Harris on his cell phone at [phone]. documented in this encounterPark[facility] History of Present illness Narrative* Marsha Harris MD - 12/31/2023 4:20 PM EST ASSESSMENT/PLAN: 1. Status post cataract extraction and insertion of intraocular lens of left eye - ICD9: V45.61, V43.1, ICD10: Z98.42, Z96.1 (primary diagnosis) Intraocular lens well centered Current Ophthalmic Meds prednisoLONE acetate (PRED FORTE) 1 % ophthalmic suspension Use 1 Drop in the left eye three times a day. Until 01/29/2024, then stop keTORolac (ACULAR) 0.5 % ophthalmic solution Use 1 Drop in the left eye three times a day. Until 01/29/2024, then stop Recommended patient see Dr. Smith for refraction and glasses. 2. Pseudophakia of right eye - ICD9: V43.1, ICD10: Z96.1 -Intraocular lens well centered. -Continue to monitor 3. Type 2 diabetes mellitus without retinopathy (HCC) - ICD9: 250.00, ICD10: E11.9 -Continue to monitor for any changes in vision -Please keep your blood sugar under good control to minimize risk of ocular complications from diabetes. -Patient was given both written and verbal information on flashes and floaters. Patient was instructed to call the office ([phone]) immediately upon noticing flashes of light, increase in floaters, or changes in vision. 4. Punctate keratitis, bilateral - ICD9: 370.21, ICD10: H16.143 Current Ophthalmic Meds propylene glycoL (SYSTANE COMPLETE) 0.6 % drop Use 1 Drop in both eyes three times daily. 5. Essential hypertension - ICD9: 401.9, ICD10: I10 6. Hypercholesterolemia - ICD9: 272.0, ICD10: E78.00 -Continue to monitor with primary care physician I have confirmed and edited as necessary the relevant HPI, ophthalmic history, ROS, and the neuro exam findings as obtained by others. I have seen and examined Winifred Vásquez. I have discussed the case and the management of this patient's care with the Resident/Fellow, if applicable. I also have reviewed and agree with the assessment and plan as stated above and agree withall of its relevant components. documented in this encounterPark[facility]03-[facility]-2024 NoteHNO ID: [id number] Author: MARSHA HARRIS MD Service: ? Author Type: Physician Type: Progress Notes Filed: 12/26/2023 08:26 Note Text: ASSESSMENT/PLAN: 1. Status post cataract extraction and insertion of intraocular lens of left eye - ICD9: V45.61, V43.1, ICD10: Z98.42, Z96.1 (primary diagnosis) Stop: Erythromycin ointment Stop: FML drops left eye Continue; Current Ophthalmic Meds prednisoLONE acetate (PRED FORTE) 1 % ophthalmic suspension Use 1 Drop in the left eye four times daily. keTORolac (ACULAR) 0.5 % ophthalmic solution Use 1 Drop in the left eye four times daily. propylene glycoL (SYSTANE COMPLETE) 0.6 % drop Use 1 Drop in both eyes three times daily. -return on Friday for post op check-up. 2. Pseudophakia of right eye - ICD9: V43.1, ICD10: Z96.1 -Intraocular lens in good position 3. Type 2 diabetes mellitus without retinopathy (HCC) - ICD9: 250.00, ICD10: E11.9 -Please keep your blood sugar under good control to minimize risk of ocular complications from diabetes. 4. Essential hypertension - ICD9: 401.9, ICD10: I10 5. Hypercholesteremia - ICD9: 272.0, ICD10: E78.00 -continue care with primary care physician I have confirmed and edited as necessary the relevant HPI, ophthalmic history, ROS, and the neuro exam findings as obtained by others. I have seen and examined Winifred Vásquez. I have discussed the case and the management of this patient's care with the Resident/Fellow, if applicable. I also have reviewed and agree with the assessment and plan as stated above and agree with all of its relevant components.[facility]03-01-2024 History of Present illness Narrative* Marsha Harris MD - 12/26/2023 8:23 AM EST ASSESSMENT/PLAN: 1. Status post cataract extraction and insertion of intraocular lens of left eye - ICD9: V45.61, V43.1, ICD10: Z98.42, Z96.1 (primary diagnosis) Stop: Erythromycin ointment Stop: FML drops left eye Continue; Current Ophthalmic Meds prednisoLONE acetate (PRED FORTE) 1 % ophthalmic suspension Use 1 Drop in the left eye four times daily. keTORolac (ACULAR) 0.5 % ophthalmic solution Use 1 Drop in the left eye four times daily. propylene glycoL (SYSTANE COMPLETE) 0.6 % drop Use 1 Drop in both eyes three times daily. -return on Friday for post op check-up. 2. Pseudophakia of right eye - ICD9: V43.1, ICD10: Z96.1 -Intraocular lens in good position 3. Type 2 diabetes mellitus without retinopathy (HCC) - ICD9: 250.00, ICD10: E11.9 -Please keep your blood sugar under good control to minimize risk of ocular complications from diabetes. 4. Essential hypertension - ICD9: 401.9, ICD10: I10 5. Hypercholesteremia - ICD9: 272.0, ICD10: E78.00 -continue care with primary care physician I have confirmed and edited as necessary the relevant HPI, ophthalmic history, ROS, and the neuro exam findings as obtained by others. I have seen and examined Winifred Dolores Vásquez. I have discussed the case and the management of this patient's care with the Resident/Fellow, if applicable. I also have reviewed and agree with the assessment and plan as stated above and agree withall of its relevant components. documented in this encounterPark[facility]03-01-2024 Instructions* Patient Instructions* Marsha Harris MD - 12/26/2023 8:12 AM EST Stop: Erythromycin ointment Stop: FML drops left eye Continue; Current Ophthalmic Meds prednisoLONE acetate (PRED FORTE) 1 % ophthalmic suspension Use 1 Drop in the left eye four times daily. keTORolac (ACULAR) 0.5 % ophthalmic solution Use 1 Drop in the left eye four times daily. propylene glycoL (SYSTANE COMPLETE) 0.6 % drop Use 1 Drop in both eyes three times daily. If you have any questions please contact our office at [phone]. After office hours or on the weekend, please call Dr. Harris on his cell phone at [phone]. documented in this encounterPark[facility]01-31-2024 NoteHNO ID: [id number] Author: MARSHA HARRIS MD Service: ? Author Type: Physician Type: Progress Notes Filed: 11/26/2023 16:32 Note Text: ASSESSMENT/PLAN: 1. Combined forms of age-related cataract of left eye - ICD9: 366.19, ICD10: H25.812 (primary diagnosis) - [facility] ONLY - DIAGNOSTIC OS (LEFT EYE) Cataract Presurgical Documentation Cataract: Left Eye Current Visual Acuity Right Eye Distance CC 20/25 Left Eye Distance CC 20/60 Visual Function: Winifred Vásquez states that the decline in vision from the cataract impedes her abilities as listed in the HPI, as well as other activities of daily living. Winifred Vásquez has confirmed that she is no longer able to function adequately on a day-to-day basis because of her current visual condition. Further, it is my medical opinion that the cataract is the primary cause, or at least a significantly contributory cause of her visual dysfunction. With uncomplicated cataract surgery and lens implantation, it is my expectation that her visual function and quality of life will improve, significantly. The risks, benefits, alternatives, personnel and complications of cataract surgery with lens implantation were discussed with Winifred Vásquez in detail. She appeared to understand and asked that I proceed with plans for surgery. Upon eye examination, patient was found to have a visually significant cataract Left Eye. Discussed cataract surgery with patient and different intraocular lens implant options with patient: basic monofocal intraocular lens implant, Toric intraocular lens implant, and presbyopia correction intraocular lens implant. In my medical opinion, based on medical history and ocular examination, cataract surgery with intraocular lens implant will correct patient's vision and improve quality of patient's daily living activities. Patient wishes to have traditional cataract surgery with basic intraocular lens Left Eye. Patient wishes to have cataract surgery with the option stated above. Patient understands that an intraocular lens implant does not necessarily replace the need for glasses. Patient understands that it is impossible for the surgeon to inform him/her of every possible complication that may occur. The surgeon has answered all of the patient's questions. Patient understands that if he/she has a mature or dense cataract, pseudoexfoliation cataract, or history of use of Flomax, he/she may require the use of Maluyugin Ring and/or Vision Blue during surgery. Patient understands the risks, benefits, and alternatives to surgery. Plan Cataract Surgery with Monofocal Intraocular Lens Implant Left Eye on 12/25/2023 at [facility]. Current Ophthalmic Meds fluorometholone (FML LIQUID FILM) 0.1 % ophthalmic suspension Use 1 Drop in the left eye three times a day. erythromycin (ROMYCIN) 5 mg/gram (0.5 %) ophthalmic ointment Use 1 application in both eyes daily at bedtime. Continue: Systane Complete solution instill 1 drop 3 times daily Both Eyes. Start: Warm compresses at bedtime Both Eyes. PHYSICAL EXAM: Vital Signs: Blood pressure 125/68, pulse (!) 55. Respiratory: Normal breath sounds, no wheezing. CARD: Normal heart sounds 1 AND 2, normal sinus rhythm. 2. Pseudophakia of right eye - ICD9: V43.1, ICD10: Z96.1 Intraocular lens implant in good position Right Eye. 3. Type 2 diabetes mellitus without retinopathy (HCC) - ICD9: 250.00, ICD10: E11.9 Please keep your blood sugar under good control to minimize risk of ocular complications from diabetes. Continue to monitor with primary care physician. 4. Essential hypertension - ICD9: 401.9, ICD10: I10 Continue to monitor with primary care physician. 5. Hypercholesteremia - ICD9: 272.0, ICD10: E78.00 Continue to monitor with primary care physician. Marsha Harris MD I have confirmed and edited as necessary the relevant ophthalmic history, review of systems, surgical history, and ophthalmological examination findings as obtained by the ophthalmic technical staff. I have seen and examined Winifred Vásquez. I have discussed the examination findings, diagnosis, and treatment options with Winifred Vásquez and/or her family. I have also reviewed and agree with the assessment and plan as stated above and agree with all its relevant components. I gave the patient the opportunity to ask questions about the findings, diagnosis, and treatment options.[facility]11-24-2023 NoteHNO ID: [id number] Author: Luis Osorio APRN.BRANDEN Service: ? Author Type: Nurse Practitioner Type: Progress Notes Filed: 09/19/2023 12:22 PM Note Text: Patient triaged at [facility]. Here today with upset stomach/not eating/weigth loss since starting new medication from pcp 2+months ago. No abdominal pain. I will refer to pcp, likely medication reaction.[facility]11-24-2023 History of Present illness Narrative* Luis Osorio APRN.CNP - 09/19/2023 12:21 PM EST Patient triaged at [facility]. Here today with upset stomach/not eating/weigth loss since starting new medication from pcp 2+months ago. No abdominal pain. I will refer to pcp, likely medication reaction. documented in this encounterPark[facility] Health08-07-2023 Discharge summary Author Bryson Guillermo [facility] June 02, 2023 6:05pm Note Date/Time June 02, 2023 6:[address] [facility] Physical Therapy [facility] [address] [place] [address]. [address] [place] [address] / REHABILITATION SERVICES DISCHARGE SUMMARY MR#: [id number] Acct: [id number] Name: WINIFRED VÁSQUEZ Rep #: [id number] : 1950 72 From: Bryson Siegel Referring Dr.: Dr. Jony Taveras DO Status : REG RCR Insurance: [employer]URANCE Discharge Summary D/C summary: It has been my pleasure to treat WINIFRED VÁSQUEZ referred by Dr. Jony Taveras DO, with the diagnosis of R knee OA for a total of 10 visit(s). Discharge Date: 06/02/23 Please see the following information for a summary of their discharge status. Subjective Subjective: Pt. reports overall doing better. Pt. reports being 65% better. Pt. is compliant with HEP for both aquatics and land. Pt. reports doing exercises athome as well. Pain R knee: Pain Intensity (Out of 10): 2 Overall Improvement % Improvement: 65 Objective Objective/Function: ROM: R knee 0-8-110deg, L knee 0-6-117deg. MMT: RLE: knee: ext: 32.4#, flexion 21.3#; LLE: knee: ext 29.7#, flexion 19.4#. GAIT: Pt ambulates without AD. Pt. has lateral hip sway, but is better. Pt. overall doing better. She is to see physician later this month. I talked with her about contining aquatic exercises in the pool either in the gym or at local pool. Pt. consents to this, but also plans on doing exercises onhome as well. Goals Goal 1:: LTG: Pt. to be I with HEP in aquatic setting. Goal Progress: Goal Met Goal 2:: STG: Pt. to be able to walk throughout her home with 1-2/10 pain allowing for increased tolerance to daily activities. Goal Progress: Goal Met Goal 3:: LTG: Pt. to be able to ambulate throughout grocery stores with good tolerance allowing for increased community mobility. Goal Progress: Goal Met Goal 4:: LTG: pt. to have increased BLE strength to 5/5 throughout reducing stress to R knee with all functional mobility. Goal Progress: Progressing Goal 5:: STG: pt. to sleep throughout the night with 0-2/10 pain in her R knee allowing for increased quality of life. Goal Progress: Progressing Plan Plan: Pt. to be Dc from PT at this point in time. D/C Information Discharge Comments: Pt. was treated in aquatic setting for her R knee pain. Pt. is I with her exercises at this point in time and will be DC from PT this date. d/c sentence: If there are questions or concerns regarding this patient's physical therapy, please feel free to call me at [phone]. Thank you for the referral of thispatient. Sincerely, Bryson Guillermo, DPT Balance/Gait/Functional tests Balance/Special Test Scores Lower Extremity Functional Score: 40 <Electronically signed by Bryson Guillermo DPT> 06/02/23 2318 CC: Dr. Jony Taveras DO; [facility] ~ CLS Signed [facility] Work Phone: 1(716) 142-665606-21-2023 NoteHNO ID: [id number] Author: Marsha Harris MD Service: ? Author Type: Physician Type: Progress Notes Filed: 04/16/2023 4:48 PM Note Text: .ASSESSMENT/PLAN: 1. Status post cataract extraction and insertion of intraocular lens of right eye - ICD9: V45.61, V43.1, ICD10: Z98.41, Z96.1 (primary diagnosis) Continue post op medications as directed Current Ophthalmic Meds keTORolac (ACULAR) 0.5 % ophthalmic solution Use 1 Drop in the right eye three times daily until 04/17/2023 prednisoLONE acetate (PRED FORTE) 1 % ophthalmic suspension Use 1 Drop in the right eye three times daily until 04/17/2023 propylene glycoL (SYSTANE COMPLETE) 0.6 % drop Use 1 Drop in both eyes three times daily. Refer to Dr. Smith for refraction and glasses 2. Combined forms of age-related cataract of left eye - ICD9: 366.19, ICD10: H25.812 Not visually significant at this time Marsha Harris MD I have confirmed and edited as necessary the relevant ophthalmic history, review of systems, surgical history, and ophthalmological examination findings as obtained by the ophthalmic technical staff. I have seen and examined Winifred Vásquez. I have discussed the examination findings, diagnosis, and treatment options with Winifred Vásquez and/or her family. I have also reviewed and agree with the assessment and plan as stated above and agree with all its relevant components. I gave the patient the opportunity to ask questions about the findings, diagnosis, and treatment options.[facility]06-21-2023 History of Present illness Narrative* Marsha Harris MD - 04/16/2023 4:41 PM EDT .ASSESSMENT/PLAN: 1. Status post cataract extraction and insertion of intraocular lens of right eye - ICD9: V45.61, V43.1, ICD10: Z98.41, Z96.1 (primary diagnosis) Continue post op medications as directed Current Ophthalmic Meds keTORolac (ACULAR) 0.5 % ophthalmic solution Use 1 Drop in the right eye three times daily until 04/17/2023 prednisoLONE acetate (PRED FORTE) 1 % ophthalmic suspension Use 1 Drop in the right eye three timesdaily until 04/17/2023 propylene glycoL (SYSTANE COMPLETE) 0.6 % drop Use 1 Drop in both eyes three times daily. Refer to Dr. Smith for refraction and glasses 2. Combined forms of age-related cataract of left eye - ICD9: 366.19, ICD10: H25.812 Not visually significant at this time Marsha Harris MD I have confirmed and edited as necessary the relevant ophthalmic history, review of systems, surgical history, and ophthalmological examination findings as obtained by the ophthalmic technical staff.I have seen and examined Winifred Vásquez. I have discussed the examination findings, diagnosis, and treatment options with Winifred Vásquez and/or her family. I have also reviewed and agree with the assessment and plan as stated above and agree with all its relevant components. I gave the patient the opportunity to ask questions about the findings, diagnosis, and treatment options. documented in this encounterPark[facility]05-24-2023 NoteHNO ID: [id number] Author: Vivien Handley II, OD Service: ? Author Type: EXPEDITION SUPERVISOR Type: Progress Notes Filed: 03/19/2023 4:30 PM Note Text: Assessment and Plan Z98.41, Z96.1 Status post cataract extraction and insertion of intraocular lens of right eye (primary encounter diagnosis) Comment: Healing well. Posterior chamber intraocular lens is well positioned and clear. Continue schedule of postoperative medications as directed. Recheck in 3-4 weeks. Instruct patient to immediately report any change in condition outside of expected and discussed symptoms. I have confirmed and edited as necessary the relevant ophthalmic history, ROS, and the neuro exam findings as obtained by others. I have seen and examined Winifred Vásquez. I have discussed the case and the management of this patient's care with the Resident/Fellow, if applicable. I also have reviewed and agree with the assessment and plan as stated above and agree with all of its relevant components. Vivien Handley II, [facility]05-19-2023 NoteHNO ID: [id number] Author: Marsha Harris MD Service: ? Author Type: Physician Type: Progress Notes Filed: 03/14/2023 9:38 AM Note Text: ASSESSMENT/PLAN: 1. Status post cataract extraction and insertion of intraocular lens of right eye - ICD9: V45.61, V43.1, ICD10: Z98.41, Z96.1 (primary diagnosis) - Use post operative medication as directed Current Ophthalmic Meds propylene glycoL (SYSTANE COMPLETE) 0.6 % drop Use 1 Drop in both eyes three times daily. keTORolac (ACULAR) 0.5 % ophthalmic solution Use 1 Drop in the right eye four times daily. prednisoLONE acetate (PRED FORTE) 1 % ophthalmic suspension Use 1 Drop in the right eye four times daily. 2. Combined forms of age-related cataract of left eye - ICD9: 366.19, ICD10: H25.812 - Not visually significant - Monitor I have confirmed and edited as necessary the relevant ophthalmic history, review of systems, surgical history, and ophthalmological examination findings as obtained by the ophthalmic technical staff. I have seen and examined Winifred Vásquez. I have discussed the examination findings, diagnosis, and treatment options with Winifred Vásquez and/or her family. I have also reviewed and agree with the assessment and plan as stated above and agree with all its relevant components. I gave the patient the opportunity to ask questions about the findings, diagnosis, and treatment options. Marsha Harris, [facility]05-18-2023 Miscellaneous Notes* Op Note - Marsha Harris MD - 03/13/2023 12:54 PM EDT Post Operative Note: Post-Procedure Diagnosis: 1. Combined Form Age Related Cataract Right Eye Procedure: 1. Cataract Extraction with Intraocular Lens Implant Right Eye Surgeon: Marsha Harris MD Resident/Fellow/Other Pediatric Cardiologist: None Estimated Blood Loss (mL): none Specimen: no Findings: 1. Combined Form Age Related Cataract Right Eye Operative Report Dictated: Dictation: not applicable - note contains Operative Report Operative Report: The patient was correctly identified and the patient's operative eye was marked with a marking pen and verified with the patient in the pre-operative area. The operative eye was dilated in the preoperative area. The patient was then taken to the operating room where timeout was performed before starting the procedure. Combined anesthesia with intravenous sedation and topical tetracaine eyedrops were instilled into the right eye. The operative eye was prepped and draped in the standard sterile ophthalmic fashion in preparation for ophthalmic surgery. A Gino wire speculum was then insertedbetween the eyelids of the right eye and the operating microscope was placed over the right eye. A paracentesis incision was made approximately 30 away from the planned surgical incision site with the help of MVR blade. 1% lidocaine MPF with Phenylephrine 1.5% PF was injected into the anterior chamber through the paracentesis incision. A near limbal clear corneal incision was fashioned in the temporal quadrant just outside the vascular arcade and Viscoat was injected into anterior chamber to firm the eye. A bent needle cystotome was used and Utrata forceps were utilized to create a continuouscurvilinear capsulorrhexis. BSS was injected beneath the anterior capsule to hydrodissect the nucleus from adjacent cortex and capsule. The residual cortex was then aspirated with irrigation/aspiration handpiece. The posterior capsule was then polished with the help of soft irrigation-aspiration tip. Provisc viscoelastic was then injected into the eye to reform the anterior chamber and to open the capsular bag. The intraocular lens implant was taken from its sterile wrapping, inspected under the surgical microscope and found to be in good condition. The intraocular lens implant 20.5D was injected into the capsule bag. The Provisc was then aspirated from the anterior chamber and from behind the intraocular lens implant. The anterior chamber was inflated with the help of BSS to moderate tension. And the edges of the surgical incision were then hydrated with the help of BSS. Vigamox was then injected into the anterior chamber and into the capsule bag through the paracentesis incision. The surgical wound was then inspected and found to be watertight. The wire speculum and drapes were then removed. Pred Forte eyedrops, Acular eyedrops and Betadine 5% sterile ophthalmic solution were instilled in the conjunctival sac. The patient tolerated the procedure well and was taken to recovery room in stable condition. Attestation: Note Completion: Attending Attestation I performed the procedure without a resident Electronic Signatures: Marsha Harris) (Signed 13-Mar-2023 12:57) Authored: Post Operative Note, Note Completion Last Updated: 13-Mar-2023 12:57 by Marsha Harris) documented in this [facility] Work Phone: 1(474) 982-694505-18-2023 Note* Op Note - Marsha Harris MD - 03/13/2023 12:54 PM EDT Post Operative Note: Post-Procedure Diagnosis: 1. Combined Form Age Related Cataract Right Eye Procedure: 1. Cataract Extraction with Intraocular Lens Implant Right Eye Surgeon: Marsha Harris MD Resident/Fellow/Other Pediatric Cardiologist: None Estimated Blood Loss (mL): none Specimen: no Findings: 1. Combined Form Age Related Cataract Right Eye Operative Report Dictated: Dictation: not applicable - note contains Operative Report Operative Report: The patient was correctly identified and the patient's operative eye was marked with a marking pen and verified with the patient in the pre-operative area. The operative eye was dilated in the preoperative area. The patient was then taken to the operating room where timeout was performed before starting the procedure. Combined anesthesia with intravenous sedation and topical tetracaine eyedrops were instilled into the right eye. The operative eye was prepped and draped in the standard sterile ophthalmic fashion in preparation for ophthalmic surgery. A Gino wire speculum was then insertedbetween the eyelids of the right eye and the operating microscope was placed over the right eye. A paracentesis incision was made approximately 30 away from the planned surgical incision site with the help of MVR blade. 1% lidocaine MPF with Phenylephrine 1.5% PF was injected into the anterior chamber through the paracentesis incision. A near limbal clear corneal incision was fashioned in the temporal quadrant just outside the vascular arcade and Viscoat was injected into anterior chamber to firm the eye. A bent needle cystotome was used and Utrata forceps were utilized to create a continuouscurvilinear capsulorrhexis. BSS was injected beneath the anterior capsule to hydrodissect the nucleus from adjacent cortex and capsule. The residual cortex was then aspirated with irrigation/aspiration handpiece. The posterior capsule was then polished with the help of soft irrigation-aspiration tip. Provisc viscoelastic was then injected into the eye to reform the anterior chamber and to open the capsular bag. The intraocular lens implant was taken from its sterile wrapping, inspected under the surgical microscope and found to be in good condition. The intraocular lens implant 20.5D was injected into the capsule bag. The Provisc was then aspirated from the anterior chamber and from behind the intraocular lens implant. The anterior chamber was inflated with the help of BSS to moderate tension. And the edges of the surgical incision were then hydrated with the help of BSS. Vigamox was then injected into the anterior chamber and into the capsule bag through the paracentesis incision. The surgical wound was then inspected and found to be watertight. The wire speculum and drapes were then removed. Pred Forte eyedrops, Acular eyedrops and Betadine 5% sterile ophthalmic solution were instilled in the conjunctival sac. The patient tolerated the procedure well and was taken to recovery room in stable condition. Attestation: Note Completion: Attending Attestation I performed the procedure without a resident Electronic Signatures: Marsha Harris) (Signed 13-Mar-2023 12:57) Authored: Post Operative Note, Note Completion Last Updated: 13-Mar-2023 12:57 by Marsha Harris) [facility] Work Phone: [phone]) 993-545805-18-2023 History and physical note* Marsha Harris MD - 03/13/2023 11:12 AM EDT History & Physical Reviewed: I have reviewed the History and Physical dated: 03-Mar-2023 History and Physical reviewed and relevant findings noted. Patient examined to review pertinent physical findings.: No significant changes Home Medications Reviewed: no changes noted Allergies Reviewed: no changes noted ERAS (Enhanced Recovery After Surgery): ERAS Patient: no Consent: COVID-19 Consent: COVID-19 Risk Consent Surgeon has reviewed [place] risks related to the risk of shruthi COVID-19 and if they contract COVID-19 what the risks are. Electronic Signatures: Marsha Harris) (Signed 13-Mar-2023 11:12) Authored: History & Physical Reviewed, ERAS, Consent, Note Completion Last Updated: 13-Mar-2023 11:12 by Marsha Harris) [facility] Work Phone: [phone]) 738-931205-18-2023 History and physical note* Marsha Harris MD - 03/13/2023 11:12 AM EDT History & Physical Reviewed: I have reviewed the History and Physical dated: 03-Mar-2023 History and Physical reviewed and relevant findings noted. Patient examined to review pertinent physical findings.: No significant changes Home Medications Reviewed: no changes noted Allergies Reviewed: no changes noted ERAS (Enhanced Recovery After Surgery): ERAS Patient: no Consent: COVID-19 Consent: COVID-19 Risk Consent Surgeon has reviewed [place] risks related to the risk of shruthi COVID-19 and if they contract COVID-19 what the risks are. Electronic Signatures: Marsha Harris) (Signed 13-Mar-2023 11:12) Authored: History & Physical Reviewed, ERAS, Consent, Note Completion Last Updated: 13-Mar-2023 11:12 by Marsha Harris) [facility] Work Phone: [phone]) 255-658605-08-2023 NoteHNO ID: [id number] Author: Marsha Harris MD Service: ? Author Type: Physician Type: Progress Notes Filed: 03/03/2023 8:40 AM Note Text: ASSESSMENT/PLAN: 1. Combined forms of age-related cataract of right eye - ICD9: 366.19, ICD10: H25.811 (primary diagnosis) PHYSICAL EXAM: Vital Signs: Blood pressure 162/79, pulse (!) 49. Respiratory: Normal breath sounds, no wheezing. CARD: Normal heart sounds 1 AND 2, normal sinus rhythm. Cataract Presurgical Documentation Cataract: Right eye (OD) Current Visual Acuity Right Eye Distance CC 20/50 Left Eye Distance CC 20/20 Visual Function: Winifred Vásquez states that the decline in vision from the cataract impedes her abilities as listed in the HPI, as well as other activities of daily living. Winifred Vásquez has confirmed that she is no longer able to function adequately on a day-to-day basis because of her current visual condition. Further, it is my medical opinion that the cataract is the primary cause, or at least a significantly contributory cause of her visual dysfunction. With uncomplicated cataract surgery and lens implantation, it is my expectation that her visual function and quality of life will improve, significantly. The risks, benefits, alternatives, personnel and complications of cataract surgery with lens implantation were discussed with Winifred Vásquez in detail. she appeared to understand and asked that I proceed with plans for surgery. Upon eye examination, patient was found to have a visually significant cataract right eye. Discussed cataract surgery with patient and different intraocular lens implant options with patient: basic monofocal intraocular lens implant, Toric intraocular lens implant, and presbyopia correction intraocular lens implant. In my medical opinion, based on medical history and ocular examination, cataract surgery with intraocular lens implant will correct patient's vision and improve quality of patient's daily living activities. Patient wishes to have traditional cataract surgery with basic intraocular lens right eye scheduled on 03/13/23. Patient wishes to have cataract surgery with the option stated above. Patient understands that an intraocular lens implant does not necessarily replace the need for glasses. Patient understands that it is impossible for the surgeon to inform him/her of every possible complication that may occur. The surgeon has answered all of the patient's questions. Patient understands that if he/she has a mature or dense cataract, pseudoexfoliation cataract, or history of use of Flomax, he/she may require the use of Maluyugin Ring and/or Vision Blue during surgery. Patient understands the risks, benefits, and alternatives to surgery. 2. Combined forms of age-related cataract of left eye - ICD9: 366.19, ICD10: H25.812 - Not visually significant at this time - Continue to monitor for any progression 3. Punctate keratitis of both eyes - ICD9: 370.21, ICD10: H16.143 4. Dry eye syndrome of both eyes - ICD9: 375.15, ICD10: H04.123 - Continue: Current Ophthalmic Meds fluorometholone (FML LIQUID FILM) 0.1 % ophthalmic suspension Use 1 Drop in the right eye three times daily. propylene glycoL (SYSTANE COMPLETE) 0.6 % drop Use 1 Drop in both eyes three times daily. 5. Type 2 diabetes mellitus without retinopathy (HCC) - ICD9: 250.00, ICD10: E11.9 - Please keep your blood sugar under good control to minimize risk of ocular complications from diabetes. - Continue care with Lucita Agarwal NP Last A1c 6.0 6. Congestive heart failure, unspecified HF chronicity, unspecified heart failure type (HCC) - ICD9: 428.0, ICD10: I50.9 7. Essential hypertension - ICD9: 401.9, ICD10: I10 8. Hypercholesterolemia - ICD9: 272.0, ICD10: E78.00 9. Sleep apnea 10. Bradycardia - Manage care with primary care physician - Patient medically cleared by Namrata Barrera NP to proceed with cataract surgery. I have confirmed and edited as necessary the relevant ophthalmic history, review of systems, surgical history, and ophthalmological examination findings as obtained by the ophthalmic technical staff. I have seen and examined Winifred Vásquez. I have discussed the examination findings, diagnosis, and treatment options with Winifred Vásquez and/or her family. I have also reviewed and agree with the assessment and plan as stated above and agree with all its relevant components. I gave the patient the opportunity to ask questions about the findings, diagnosis, and treatment options. Marsha Harris [facility]05-08-2023 Instructions* Patient Instructions* Marsha Harris MD - 03/03/2023 8:25 AM EDT Cataract surgery right eye is scheduled on 03/13/23 Continue: Current Ophthalmic Meds fluorometholone (FML LIQUID FILM) 0.1 % ophthalmic suspension Use 1 Drop in the right eye three times daily. propylene glycoL (SYSTANE COMPLETE) 0.6 % drop Use 1 Drop in both eyes three times daily. If you have any questions please contact our office at [phone]. After office hours or on the weekend, please call Dr. Harris on his cell phone at [phone]. [facility] History of Present illness Narrative* Marsha Harris MD - 03/03/2023 8:22 AM EDT ASSESSMENT/PLAN: 1. Combined forms of age-related cataract of right eye - ICD9: 366.19, ICD10: H25.811 (primary diagnosis) PHYSICAL EXAM: Vital Signs: Blood pressure 162/79, pulse (!) 49. Respiratory: Normal breath sounds, no wheezing. CARD: Normal heart sounds 1 & 2, normal sinus rhythm. Cataract Presurgical Documentation Cataract: Right eye (OD) Current Visual Acuity Right Eye Distance CC 20/50 Left Eye Distance CC 20/20 Visual Function: Winifred Vásquez states that the decline in vision from the cataract impedes her abilities as listed in the HPI, as well as other activities of daily living. Winifred Vásquez has confirmed that she is no longer able to function adequately on a day-to-day basis because of her current visual condition. Further, it is my medical opinion that the cataract is the primary cause, or at least a significantly contributory cause of her visual dysfunction. With uncomplicated cataract surgery and lens implantation, it is my expectation that her visual function and quality of life will improve, significantly. The risks, benefits, alternatives, personnel and complications of cataract surgery with lens implantation were discussed with Winifred Vásquez in detail. she appeared to understand and asked that I proceed with plans for surgery. Upon eye examination, patient was found to have a visually significant cataract right eye. Discussed cataract surgery with patient and different intraocular lens implant options with patient: basic monofocal intraocular lens implant, Toric intraocular lens implant, and presbyopia correction intraocular lens implant. In my medical opinion, based on medical history and ocular examination, cataract surgery with intraocular lens implant will correct patient's vision and improve quality of patient'sdaily living activities. Patient wishes to have traditional cataract surgery with basic intraocularlens right eye scheduled on 03/13/23. Patient wishes to have cataract surgery with the option statedabove. Patient understands that an intraocular lens implant does not necessarily replace the need for glasses. Patient understands that it is impossible for the surgeon to inform him/her of every possible complication that may occur. The surgeon has answered all of the patient's questions. Patient understands that if he/she has a mature or dense cataract, pseudoexfoliation cataract, or history ofuse of Flomax, he/she may require the use of Maluyugin Ring and/or Vision Blue during surgery. Patient understands the risks, benefits, and alternatives to surgery. 2. Combined forms of age-related cataract of left eye - ICD9: 366.19, ICD10: H25.812 - Not visually significant at this time - Continue to monitor for any progression 3. Punctate keratitis of both eyes - ICD9: 370.21, ICD10: H16.143 4. Dry eye syndrome of both eyes - ICD9: 375.15, ICD10: H04.123 - Continue: Current Ophthalmic Meds fluorometholone (FML LIQUID FILM) 0.1 % ophthalmic suspension Use 1 Drop in the right eye three times daily. propylene glycoL (SYSTANE COMPLETE) 0.6 % drop Use 1 Drop in both eyes three times daily. 5. Type 2 diabetes mellitus without retinopathy (HCC) - ICD9: 250.00, ICD10: E11.9 - Please keep your blood sugar under good control to minimize risk of ocular complications from diabetes. - Continue care with Lucita Agarwal NP Last A1c 6.0 6. Congestive heart failure, unspecified HF chronicity, unspecified heart failure type (HCC) - ICD9: 428.0, ICD10: I50.9 7. Essential hypertension - ICD9: 401.9, ICD10: I10 8. Hypercholesterolemia - ICD9: 272.0, ICD10: E78.00 9. Sleep apnea 10. Bradycardia - Manage care with primary care physician - Patient medically cleared by Namrata Barrera NP to proceed with cataract surgery. I have confirmed and edited as necessary the relevant ophthalmic history, review of systems, surgical history, and ophthalmological examination findings as obtained by the ophthalmic technical staff.I have seen and examined Winifred Vásquez. I have discussed the examination findings, diagnosis, and treatment options with Winifred Vásquez and/or her family. I have also reviewed and agree with the assessment and plan as stated above and agree with all its relevant components. I gave the patient the opportunity to ask questions about the findings, diagnosis, and treatment options. Marsha Harris MD [facility] this [facility]23 NoteHNO ID: [id number] Author: Marsha Harris MD Service: ? Author Type: Physician Type: Progress Notes Filed: 02/05/2023 2:08 PM Note Text: ASSESSMENT/PLAN: 1. Combined forms of age-related cataract of right eye - ICD9: 366.19, ICD10: H25.811 (primary diagnosis) Upon eye examination, patient was found to have a visually significant cataract right eye. Discussed cataract surgery with patient and different intraocular lens implant options with patient: basic monofocal intraocular lens implant, Toric intraocular lens implant, and presbyopia correction intraocular lens implant. In my medical opinion, based on medical history and ocular examination, cataract surgery with intraocular lens implant will correct patient's vision and improve quality of patient's daily living activities. Patient wishes to have traditional cataract surgery with basic intraocular lens right eye scheduled on 03/13/23. Patient wishes to have cataract surgery with the option stated above. Patient understands that an intraocular lens implant does not necessarily replace the need for glasses. Patient understands that it is impossible for the surgeon to inform him/her of every possible complication that may occur. The surgeon has answered all of the patient's questions. Patient understands that if he/she has a mature or dense cataract, pseudoexfoliation cataract, or history of use of Flomax, he/she may require the use of Maluyugin Ring and/or Vision Blue during surgery. Patient understands the risks, benefits, and alternatives to surgery. Cataract Presurgical Documentation Cataract: Right eye (OD) Current Visual Acuity Right Eye Distance CC 20/50 Left Eye Distance CC 20/20 Visual Function: Winifred Vásquez states that the decline in vision from the cataract impedes her abilities as listed in the HPI, as well as other activities of daily living. Winifred Vásquez has confirmed that she is no longer able to function adequately on a day-to-day basis because of her current visual condition. Further, it is my medical opinion that the cataract is the primary cause, or at least a significantly contributory cause of her visual dysfunction. With uncomplicated cataract surgery and lens implantation, it is my expectation that her visual function and quality of life will improve, significantly. The risks, benefits, alternatives, personnel and complications of cataract surgery with lens implantation were discussed with Winifred Vásquez in detail. she appeared to understand and asked that I proceed with plans for surgery. PHYSICAL EXAM: Vital Signs: Blood pressure 116/60, pulse 60, resp. rate 16. Respiratory: Normal breath sounds, no wheezing. CARD: Normal heart sounds 1 AND 2, normal sinus rhythm. 2. Combined forms of age-related cataract of left eye - ICD9: 366.19, ICD10: H25.812 - Not visually significant at this time - Continue to monitor for any progression 3. Punctate keratitis of both eyes - ICD9: 370.21, ICD10: H16.143 4. Dry eye syndrome of both eyes - ICD9: 375.15, ICD10: H04.123 - Continue: Current Ophthalmic Meds fluorometholone (FML LIQUID FILM) 0.1 % ophthalmic suspension Use 1 Drop in the right eye three times daily. propylene glycoL (SYSTANE COMPLETE) 0.6 % drop Use 1 Drop in both eyes three times daily. 5. Type 2 diabetes mellitus without retinopathy (HCC) - ICD9: 250.00, ICD10: E11.9 - Please keep your blood sugar under good control to minimize risk of ocular complications from diabetes. - Manage care with primary care physician 6. Congestive heart failure, unspecified HF chronicity, unspecified heart failure type (HCC) - ICD9: 428.0, ICD10: I50.9 7. Essential hypertension - ICD9: 401.9, ICD10: I10 8. Hypercholesterolemia - ICD9: 272.0, ICD10: E78.00 9. Sleep apnea 10. Bradycardia - Manage care with primary care physician - Patient medically cleared by Namrata Barrera NP to proceed with cataract surgery. I have confirmed and edited as necessary the relevant ophthalmic history, review of systems, surgical history, and ophthalmological examination findings as obtained by the ophthalmic technical staff. I have seen and examined Winifred Vásquez. I have discussed the examination findings, diagnosis, and treatment options with Winifred Vásquez and/or her family. I have also reviewed and agree with the assessment and plan as stated above and agree with all its relevant components. I gave the patient the opportunity to ask questions about the findings, diagnosis, and treatment options. Marsha Harris [facility]02-27-2023 Instructions* Patient Instructions* Marsha Harris MD - 12/23/2022 1:33 PM EST Continue: Current Ophthalmic Meds fluorometholone (FML LIQUID FILM) 0.1 % ophthalmic suspension Use 1 Drop in the right eye three times daily. propylene glycoL (SYSTANE COMPLETE) 0.6 % drop Use 1 Drop in both eyes three times daily. If you have any questions please contact our office at [phone]. After office hours or on the weekend, please call Dr. Harris on his cell phone at [phone]. documented in this encounter[facility]02-27-2023 History of Present illness Narrative* Marsha Harris MD - 12/23/2022 1:23 PM EST ASSESSMENT/PLAN: 1. Combined forms of age-related cataract of right eye - ICD9: 366.19, ICD10: H25.811 (primary diagnosis) Blood pressure 162/79, pulse (!) 49. Cataract Presurgical Documentation Cataract: Right eye (OD) Current Visual Acuity Right Eye Distance CC 20/50 Left Eye Distance CC 20/20 Visual Function: Winifred Vásquez states that the decline in vision from the cataract impedes her abilities as listed in the HPI, as well as other activities of daily living. Winifred Vásquez has confirmed that she is no longer able to function adequately on a day-to-day basis because of her current visual condition. Further, it is my medical opinion that the cataract is the primary cause, or at least a significantly contributory cause of her visual dysfunction. With uncomplicated cataract surgery and lens implantation, it is my expectation that her visual function and quality of life will improve, significantly. The risks, benefits, alternatives, personnel and complications of cataract surgery with lens implantation were discussed with Winifred Vásquez in detail. she appeared to understand and asked that I proceed with plans for surgery. Patient to obtain clearance from [facility] Dr. Newman for bradycardia 2. Combined forms of age-related cataract of left eye - ICD9: 366.19, ICD10: H25.812 - Not visually significant at this time - Continue to monitor for any progression 3. Punctate keratitis of both eyes - ICD9: 370.21, ICD10: H16.143 4. Dry eye syndrome of both eyes - ICD9: 375.15, ICD10: H04.123 Continue: Current Ophthalmic Meds fluorometholone (FML LIQUID FILM) 0.1 % ophthalmic suspension Use 1 Drop in the right eye three times daily. propylene glycoL (SYSTANE COMPLETE) 0.6 % drop Use 1 Drop in both eyes three times daily. 5. Type 2 diabetes mellitus without retinopathy (HCC) - ICD9: 250.00, ICD10: E11.9 - Please keep your blood sugar under good control to minimize risk of ocular complications from diabetes. 6. Congestive heart failure, unspecified HF chronicity, unspecified heart failure type (HCC) - ICD9: 428.0, ICD10: I50.9 7. Essential hypertension - ICD9: 401.9, ICD10: I10 8. Hypercholesterolemia - ICD9: 272.0, ICD10: E78.00 9. Sleep apnea - Manage care with primary care physician 10. Bradycardia Patient to consult Dr. Newman I have confirmed and edited as necessary the relevant ophthalmic history, review of systems, surgical history, and ophthalmological examination findings as obtained by the ophthalmic technical staff.I have seen and examined Winifred Vásquez. I have discussed the examination findings, diagnosis, and treatment options with Winifred Vásquez and/or her family. I have also reviewed and agree with the assessment and plan as stated above and agree with all its relevant components. I gave the patient the opportunity to ask questions about the findings, diagnosis, and treatment options. Marsha Harris MD [facility] History of Past illness Narrative* Problem Noted Date Resolved Date Combined forms of age-related cataract of right eye 11/29/2022 03/14/2023 documented as of this encounter (statuses as of 04/17/2023) [facility] History of Past illness Narrative* Problem Noted Date Diagnosed Date Resolved Date Combined forms of age-relate d cataract of right eye 11/29/2022 03/14/2023 documented as of this encounter (statuses as of 09/19/2023) [facility] History of Past illness Narrative* Problem Noted Date Diagnosed Date Resolved Date Combined forms of age-relate d cataract of right eye 11/29/2022 03/14/2023 documented as of this encounter (statuses as of 12/26/2023) [facility] History of Past illness Narrative* Problem Noted Date Diagnosed Date Resolved Date Combined forms of age-relate d cataract of right eye 11/29/2022 03/14/2023 Combined forms of age-relate d cataract of left eye 11/29/2022 12/31/2023 documented as of this encounter (statuses as of 01/01/2024) [facility] Diagnosis Onset Date Resolution Status Acute prerenal azotemia acut e SUNNY (acute kidney injury) ac vimal Campylobacter diarrhea acute Ketosis acute Severe malnutrition acute Hypokalemia resolved 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 [facility] Work Phone: Evaluation note* Diagnosis Onset Date Resolution Status 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 [facility] Work Phone: Evaluation note* Diagnosis Onset Date Resolution Status 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 (ductal carcinoma in situ) chronic Essential hypertension chron ic Hyperlipidemia [facility] Work Phone: Evaluation note* Diagnosis Onset Date Resolution Status Essential hypertension chron ic Hyperlipidemia chronic 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 [facility] Work Phone: Evaluation note* Diagnosis Combined forms of age-related cataract of right eye- Primary Other and combined forms of senile cataract Combined forms of age-related cataract of left eye Other and combined forms of senile cataract Type 2 diabetes mellitus without retinopathy (HCC) Type II or unspecified type diabetes mellitus without mention of complication, not stated as uncontrolled Punctate keratitis, bilateral Dry eye syndrome of both eyes Congestive heart failure, unspecified HF chronicity, unspecified heart failure type (HCC) Essential hypertension Unspecified essential hypertension Sleep apnea, unspecified type Hypercholesterolemia Pure hypercholesterolemia Bradycardia Other specified cardiac dysrhythmias [facility] Diagnosis Combined forms of age-related cataract of right eye- Primary Other and combined forms of senile cataract Combined forms of age-related cataract of left eye Other and combined forms of senile cataract Punctate keratitis, bilateral Dry eye syndrome of both eyes Type 2 diabetes mellitus without retinopathy (HCC) Type II or unspecified type diabetes mellitus without mention of complication, not stated as uncontrolled Congestive heart failure, unspecified HF chronicity, unspecified heart failure type (HCC) Essential hypertension Unspecified essential hypertension Sleep apnea, unspecified type Bradycardia Other specified cardiac dysrhythmias Combined form of age-related cataract, right eye [facility]* Diagnosis Onset Date Resolution Status Preoperative cardiovascular examination acute Essential hypertension chron ic Hyperlipidemia [facility] Work Phone: Evaluation note* Diagnosis Status post cataract extraction and insertion of intraocular lens of right eye- Primary Combined forms of age-related cataract of left eye Other and combined forms of senile cataract [facility] Diagnosis Onset Date Resolution Status 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 Allergy status to penicillin Allergy status to sulfonamides documented in this encounter [facility] Work Phone: Evaluation note* Diagnosis Chronic upset stomach- Primary Dyspepsia and other specified disorders of function of stomach documented in this encounter [facility] note* Diagnosis Status post cataract extraction and insertion of intraocular lens of left eye- Primary Pseudophakia of right eye Lens replaced by other means Type 2 diabetes mellitus without retinopathy (HCC) Type II or unspecified type diabetes mellitus without mention of complication, not stated as uncontrolled Essential hypertension Unspecified essential hypertension Hypercholesteremia Pure hypercholesterolemia [facility]* Diagnosis Status post cataract extraction and insertion of intraocular lens of left eye- Primary Pseudophakia of right eye Lens replaced by other means Type 2 diabetes mellitus without retinopathy (HCC) Type II or unspecified type diabetes mellitus without mention of complication, not stated as uncontrolled Punctate keratitis, bilateral Essential hypertension Unspecified essential hypertension Hypercholesterolemia Pure hypercholesterolemia documented in this encounter [facility] noteNo assessment information availableWOhioHealth [facility] Work Phone: Hospital Discharge instructionsAmbulatory Orders* ONC Referral: Surgery Time Frame: 0 Days, Location: [facility] * RAD ONC: CT Sim [RAD.ONC[facility]] Location: None Selected * Return to Office Location: None Selected * SCRN MAMM (CAD)W/JOSE BILAT Location: None Selected [facility] Work Phone: Reason for referral (narrative)No reason for referral information availableWOhioHealth [facility] Work Phone: Summary Purpose Family History No Family History Records Found Relationship Condition Age at Onset Recorded Date/T nir Not Specified Malignant neoplasm Unknown mother Cardiac disease Unknown Malignant neoplasm of breast Unknown aunt Malignant neoplasm of breast Unknown sister Malignant neoplasm of breast Unknown Asthma Unknown father Malignant neoplasm of colon Unknown brother Malignant neoplasm of colon Unknown Advance Directives No Advanced Directives Records Found Advance Directive Response Recorded Date/ Time Living Will No October 05 12:16am Power of Teacher Home Therapy No October 05, 2021 12:16am Advance Directive Response Recorded Date/ Time Living Will No October 04 11:16pm Power of Teacher Home Therapy No October 04, 2021 11:16pm Advance Directive Response Recorded Date/ Time Living Will No October 05 12:16am Power of Teacher Home Therapy No October 05, 2021 12:16am Living Will No September 17 4:49pm Power of Teacher Home Therapy No September 17, 2024 4:49pm Advance Directive Response Recorded Date/ Time Living Will No October 05 12:16am Do you have a Healthcare Power of Teacher Home Therapy? 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 Chief Complaint 4 MO - NO LABS SCREENING 1 Y FU(RS FROM 02/19,01/25,04/04) EORDER Reason for Visit DCIS (ductal carcino ma in situ) 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 DCIS (ductal carcinoma in situ) Essential hypertension Hyperlipidemia Chief Complaint 6 wk FU BREAST CANCER MARKER E ORDER 6 MO - LABS (DOING PRIOR) REVIEW MRI RESULTS ABNORMAL MRI Reason for Visit Essential hypertensi on Hyperlipidemia DCIS (ductal carcinoma in situ) 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 Chief Complaint 6 wk FU BREAST CANCER MARKER E ORDER 6 MO - LABS (DOING PRIOR) REVIEW MRI RESULTS ABNORMAL MRI BIRADS 4 LEFT BREAST Reason for Visit Essential hypertensi on Hyperlipidemia DCIS (ductal carcinoma in situ) 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 Abnormality of left breast on screening mammogram Chief Complaint 6 wk FU BREAST CANCER MARKER E ORDER 6 MO - LABS (DOING PRIOR) REVIEW MRI RESULTS ABNORMAL MRI BIRADS 4 LEFT BREAST LUMP LUMP NO LABS REVIEW PATH Reason for Visit Essential hypertensi on Hyperlipidemia DCIS (ductal carcinoma in situ) 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 Abnormality of left breast on screening mammogram DCIS (ductal carcinoma in situ) 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 Chief Complaint F/U FOR CATARACT YAW NITZA SCREENING Reason for Visit Preoperative cardiov ascular examination Essential hypertension Hyperlipidemia Chief Complaint SCREENING 6 MO - NO LABS R KNEE PAIN RX HERE Reason for Visit DCIS (ductal carcino ma in situ) 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 Chief Complaint R KNEE PAIN RX HERE D05.11 6 MO - LABS - REVIEW BREAST MRI F/U NO LABS - REVIEW MAMMO AND BONE DENSITY Reason for Visit DCIS (ductal carcino ma in situ) 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 DCIS (ductal carcinoma in situ) Encounter for education Chief Complaint Admit Date PREOP September 21, 2024 7:27am AFIB/ See Clinical Note September 28 2:47pm Dysphagia November 11, 2024 8 :10am Early satiety December 02, 2024 1 1:47am 1 Y FU December 09, 2024 3:17pm PAROXYSMAL ATRIAL FIBRILLATION December 24, 2024 8:28am PAROXYSMAL ATRIAL FIBRILLATION December 24, 2024 8:52am Reason for Visit Admit Date Atrial fibrillation September 28, 2024 2 :47pm Essential hypertension September 28 2:47pm Hyperlipidemia September 28, 2024 2 :47pm Difficulty swallowing November 11, 2024 8:10am Early satiety November 11, 2024 8 :10am Atrial fibrillation December 09, 2024 3:17pm Essential hypertension December 09 3:17pm Hyperlipidemia December 09, 2024 3:17pm Chief Complaint Admit Date Dysphagia November 11, 2024 8 :10am Early satiety December 02, 2024 1 1:47am 1 Y FU December 09, 2024 3:17pm PAROXYSMAL ATRIAL FIBRILLATION December 24, 2024 8:28am PAROXYSMAL ATRIAL FIBRILLATION December 24, 2024 8:52am E-ORDER February 03, 2025 11: 20am Cough February 03, 2025 11: 34am Reason for Visit Admit Date Difficulty swallowing November 11, 2024 8:10am Early satiety November 11, 2024 8 :10am Atrial fibrillation December 09, 2024 3:17pm Essential hypertension December 09 3:17pm Hyperlipidemia December 09, 2024 3:17pm Acute bronchitis February 03, 2025 11: 34am Acute suppur right otitis me john w/spontan rupture of tympanic membrane February 03, 2025 11:34am Chief Complaint Admit Date Dysphagia November 11, 2024 8 :10am Early satiety December 02, 2024 1 1:47am 1 Y FU December 09, 2024 3:17pm PAROXYSMAL ATRIAL FIBRILLATION December 24, 2024 8:28am PAROXYSMAL ATRIAL FIBRILLATION December 24, 2024 8:52am E-ORDER February 03, 2025 11: 20am Cough February 03, 2025 11: 34am SCREENING March 04, 2025 11:21a m Chief Complaint Admit Date Early satiety December 02, 2024 1 1:47am 1 Y FU December 09, 2024 3:17pm PAROXYSMAL ATRIAL FIBRILLATION December 24, 2024 8:28am PAROXYSMAL ATRIAL FIBRILLATION December 24, 2024 8:52am E-ORDER February 03, 2025 11: 20am Cough February 03, 2025 11: 34am SCREENING March 04, 2025 11:21a m F/U NO LABS - REVIEW MAMMO AND BONE DENS ITY March 10, 2025 12:45pm ABNORMAL BI LEFT March 11, 2025 12:51 pm Reason for Visit Admit Date Atrial fibrillation December 09, 2024 3:17pm Essential hypertension December 09 3:17pm Hyperlipidemia December 09, 2024 3:17pm Acute bronchitis February 03, 2025 11: 34am Acute suppur right otitis me john w/spontan rupture of tympanic membrane February 03, 2025 11:34am DCIS (ductal carcinoma in situ) February 12:45pm Encounter for education March 10, 2025 1 2:45pm Chief Complaint Admit Date Early satiety December 02, 2024 1 1:47am 1 Y FU December 09, 2024 3:17pm PAROXYSMAL ATRIAL FIBRILLATION December 24, 2024 8:28am PAROXYSMAL ATRIAL FIBRILLATION December 24, 2024 8:52am E-ORDER February 03, 2025 11: 20am Cough February 03, 2025 11: 34am SCREENING March 04, 2025 11:21a m F/U NO LABS - REVIEW MAMMO AND BONE DENS ITY March 10, 2025 12:45pm ABNORMAL BI LEFT March 11, 2025 12:51 pm BIRADS 5 March 18, 2025 12:17 pm LEFT BREAST MASS March 25, 2025 9:40a m Reason for Visit Admit Date Atrial fibrillation December 09, 2024 3:17pm Essential hypertension December 09 3:17pm Hyperlipidemia December 09, 2024 3:17pm Acute bronchitis February 03, 2025 11: 34am Acute suppur right otitis me john w/spontan rupture of tympanic membrane February 03, 2025 11:34am DCIS (ductal carcinoma in situ) February 12:45pm Encounter for education March 10, 2025 1 2:45pm Left breast mass March 18, 2025 12:17 pm Chief Complaint Admit Date PAROXYSMAL ATRIAL FIBRILLATION December 24, 2024 8:28am PAROXYSMAL ATRIAL FIBRILLATION December 24, 2024 8:52am E-ORDER February 03, 2025 11: 20am Cough February 03, 2025 11: 34am SCREENING March 04, 2025 11:21a m F/U NO LABS - REVIEW MAMMO AND BONE DENS ITY March 10, 2025 12:45pm ABNORMAL BI LEFT March 11, 2025 12:51 pm BIRADS 5 March 18, 2025 12:17 pm LEFT BREAST MASS March 25, 2025 9:40a m R92.8 - Other abnormal and inconclusive findings o April 11, 2025 12:08pm R92.8 - Other abnormal and inconclusive findings o April 11, 2025 1:07pm Reason for Visit Admit Date Acute bronchitis February 03, 2025 11: 34am Acute suppur right otitis me john w/spontan rupture of tympanic membrane February 03, 2025 11:34am DCIS (ductal carcinoma in situ) February 12:45pm Encounter for education March 10, 2025 1 2:45pm Left breast mass March 18, 2025 12:17 pm Chief Complaint Admit Date PAROXYSMAL ATRIAL FIBRILLATION December 24, 2024 8:28am PAROXYSMAL ATRIAL FIBRILLATION December 24, 2024 8:52am E-ORDER February 03, 2025 11: 20am Cough February 03, 2025 11: 34am SCREENING March 04, 2025 11:21a m F/U NO LABS - REVIEW MAMMO AND BONE DENS ITY March 10, 2025 12:45pm ABNORMAL BI LEFT March 11, 2025 12:51 pm BIRADS 5 March 18, 2025 12:17 pm LEFT BREAST MASS March 25, 2025 9:40a m R92.8 - Other abnormal and inconclusive findings o April 11, 2025 12:08pm R92.8 - Other abnormal and inconclusive findings o April 11, 2025 1:07pm DISCUSS BREAST SURGERY April 20, 2025 9 :49am Medications Administered Section Active Administered Medications - up to 3 most recent administrations Medication Order MAR Action Action Date Dose Rate Site proparacaine 0.5 % 1 Drop (ALCAINE) 1 Drop, BOTH EYES, DIRECTED, Starting on Fri12/23/22 at 1330, Until Fri12/24/22 at 0129, Administer for pneumo tonometry, tonopen tonometry, or pachymetry. In the event of a proparacaine shortage, administer tetracaine 0.5% ophthalmic drops 1 drop in the left eye as directed for pneumo tonometry, tonopen tonometry, or pachymetry Given 12/23/2022 1:30 PM EST 1 Drop Active Administered Medications - up to 3 most recent administrations Medication Order MAR Action Action Date Dose Rate Site proparacaine 0.5 % 1 Drop (ALCAINE) 1 Drop, BOTH EYES, DIRECTED, Starting on Fri03/03/23 at 0830, Until Fri03/03/23 at 2028, Administer for pneumo tonometry, tonopen tonometry, or pachymetry. In the event of a proparacaine shortage, administer tetracaine 0.5% ophthalmic drops 1 drop in the left eye as directed for pneumo tonometry, tonopen tonometry, or pachymetry Given 03/03/2023 8:30 AM EDT 1 Drop Additional Source Comments INFORMATION SOURCE (unrecogn ized section and content) DATE CREATED AUTHOR 06/10/2018 [facility] DATE CREATED AUTHOR AUTHOR'S ORGANIZ ATSHO 12/20/2020 [facility] DATE CREATED AUTHOR AUTHOR'S ORGANIZ ATION 12/27/2023 [facility] DATE CREATED AUTHOR AUTHOR'S ORGANIZ ATION 01/01/2024 [facility] DATE CREATED AUTHOR AUTHOR'S ORGANIZ ATION 01/31/2025 [facility] DATE CREATED AUTHOR AUTHOR'S ORGANIZ ATION 04/25/2025 [facility] Goals (unrecognized section and content) Goals may be documented in a n alternate sectionGoals may be documented in an alternate sectionGoals may be documented in an alternate sectionGoals may be documented in an alternate sectionGoals may be documented in an alternate sectionGoals may be documented in an alternate sectionGoals may be documented in an alternate sectionGoals may be documented in an alternate sectionGoals may be documented in an alternate sectionGoals may be documented in an alternate sectionGoals may be documented in an alternate sectionGoals may be documented in an alternate sectionGoals may be documented in an alternate sectionGoals may be documented in an alternate sectionGoals may be documented in an alternate sectionGoals may be documented in an alternate sectionGoals may be documented in an alternate sectionGoals may be documented in an alternate section Source Comments (unrecognize d section and content) In the event this informatio n is protected by the Federal Confidentiality of Alcohol and Drug Abuse Patient Records regulations: The Federal rules restrict any use of the information to criminally investigate or prosecute any alcohol or drug abuse patient.[facility] the event this information is protected by the Federal Confidentiality of Alcohol and Drug Abuse Patient Records regulations: The Federal rules restrict any use of the information to criminally investigate or prosecute any alcohol or drug abuse patient.[facility] HealthIn the event this information is protected by the Federal Confidentiality of Alcohol and Drug Abuse Patient Records regulations: The Federal rules restrict any use of the information to criminally investigate or prosecute any alcohol or drug abuse patient.[facility] Health[facility] the event this information is protected by the Federal Confidentiality of Alcohol and Drug Abuse Patient Records regulations: The Federal rules restrict any use of the information to criminally investigate or prosecute any alcohol or drug abuse patient.[facility] HealthIn the event this information is protected by the Federal Confidentiality of Alcohol and Drug Abuse Patient Records regulations: The Federal rules restrict any use of the information to criminally investigate or prosecute any alcohol or drug abuse patient.[facility] HealthIn the event this information is protected by the Federal Confidentiality of Alcohol and Drug Abuse Patient Records regulations: The Federal rules restrict any use of the information to criminally investigate or prosecute any alcohol or drug abuse patient.[facility] Reason for Visit (unrecogniz ed section and content) Reason Comments Cataract Follow Up Diabetes Reason Comments Cataract Follow Up Reason Comments Status Post Catataract surgery with IOL right eye done on 5 Reason Comments Other Combined forms of ag e-related cataract, right eye Reason Comments Post-op Cataract OS Status Post Cataract Surgery with Intraocular lens left eye (12-25-2023) Reason Comments Post-op (Ophthalmology) Left Eye S/P cat aract extraction with insertion of basic monofocal lens implant left eye 12/25/2023. 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 Relationship Specialty Start Date End Date Lucita Agarwal NP [address] [place] [address] PCP - General Family Medicine 11/29/22 Klaudia Montes De Oca, OD [address] [place], [place] [phone] Optometry 11/29/22 Team Status: Active Member Role Status Dates [facility] Family Provider Active [facility] Primary Care Provider A ctive Team Status: Inactive Member Role Status Dates [facility] Primary Care Provider, Referring Provider Active Namrata Barrera NP, MEDICAL OFFICE ADMINISTRATOR-C Attending Provider Active Team Status: Inactive Member Role Status Dates [facility] Primary Care Provider A ctive Dr. Eder Castano MD Referring Provider Active Dr. 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 Candice Rossi MD Attending Provider Active Team Status: Inactive Member Role Status Dates [facility] Primary Care Provider A ctive Dr. Jony Taveras DO Attending Provider, Referrin g Provider Active Team Status: Active Member Role Status Dates [facility] Primary C are Provider, Family Provider, Referring Provider Active Dr. Candice Rossi MD Attending Provider Active Dr. Vinod Bustamante DO Other Provider Active Team Status: Inactive Member Role Status Dates [facility] Primary Care Provider A ctive Dr. 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 Relationship Specialty Start Date End Date Lucita Agarwal NP [facility] [place] [address] PCP - General Family Medicine 11/29/22 Klaudia Montes De Oca, OD [facility] [place] [address] Optometry 11/29/22 Team Status: Inactive Member Role Status Dates [facility] Primary Care Provider A ctive Lucita Stefano VSC, MEDICAL OFFICE ADMINISTRATOR-C Attending Provider, Referri ng Provider Active Team Status: Active Member Role Status Dates Lucita Stefano VSC, MEDICAL OFFICE ADMINISTRATOR-C Primary Care Provider Activ e Team Status: Inactive Member Role Status Dates Lucita Stefano VSC, MEDICAL OFFICE ADMINISTRATOR-C Primary Care Provider Activ e Start: September 21, 2024 End: September 21, 2024 Lucita Agarwal VSC, MEDICAL OFFICE ADMINISTRATOR-C Referring Provider Active Start: September 21, 2024 End: September 21, 2024 Dr. Eder Castano MD Attending Provider Active Start: September 21, 2024 End: September 21, 2024 Team Status: Active Member Role Status Dates Lucitaminnie Agarwal VSC, MEDICAL OFFICE ADMINISTRATOR-C Primary Care Provider Activ e Start: September 21, 2024 End: September 21, 2024 Dr. Elijah Gold MD Attending Provider Active Start: September 21, 2024 End: September 21, 2024 Dr. Eder Castano MD Referring Provider Active Start: September 21, 2024 End: September 21, 2024 Team Status: Active Member Role Status Dates Lucita Stefano VSC, MEDICAL OFFICE ADMINISTRATOR-C Primary Care Provider Activ e Start: September 21, 2024 Lucita Agarwal VSC, MEDICAL OFFICE ADMINISTRATOR-C Referring Provider Active Start: September 21, 2024 Dr. Eder Castano MD Attending Provider Active Start: September 21, 2024 Dr. Eder Castano MD Other Provider Active Start: September 21, 2024 Team Status: Inactive Member Role Status Dates Lucita Stefano VSC, MEDICAL OFFICE ADMINISTRATOR-C Primary Care Provider Activ e Start: September 28, 2024 End: September 28, 2024 Lucita Agarwal VSC, MEDICAL OFFICE ADMINISTRATOR-C Referring Provider Active Start: September 28, 2024 End: September 28, 2024 Rhett Perry NP, MEDICAL OFFICE ADMINISTRATOR-C Attending Provider Active S tart: September 28, 2024 End: September 28, 2024 Team Status: Inactive Member Role Status Dates Lucita Stefano VSC, MEDICAL OFFICE ADMINISTRATOR-C Primary Care Provider Activ e Start: November 03, 2024 End: November 03, 2024 Lucita Agarwal VSC, MEDICAL OFFICE ADMINISTRATOR-C Attending Provider Active Start: November 03, 2024 End: November 03, 2024 Lucita Agarwal VSC, MEDICAL OFFICE ADMINISTRATOR-C Referring Provider Active Start: November 03, 2024 End: November 03, 2024 Team Status: Inactive Member Role Status Dates Lucita LEÓNC, MEDICAL OFFICE ADMINISTRATOR-C Primary Care Provider Activ e Start: November 11, 2024 End: November 11, 2024 Lucita LENÓC, MEDICAL OFFICE ADMINISTRATOR-C Referring Provider Active Start: November 11, 2024 End: November 11, 2024 EMA Carrero Attending Provider Active Start: November 11, 2024 End: November 11, 2024 Team Status: Inactive Member Role Status Dates Lucita Agarwal VSC, MEDICAL OFFICE ADMINISTRATOR-C Primary Care Provider Activ e Start: December 02, 2024 End: December 02, 2024 EMA Carrero Attending Provider Active Start: December 02, 2024 End: December 02, 2024 EMA Carrero Referring Provider Active Start: December 02, 2024 End: December 02, 2024 Team Status: Inactive Member Role Status Dates [facility] Referring Provider Active Start: November End: December 09, 2024 Dr. Stewart Newman MD Attending Provider Active S tart: December 09, 2024 End: December 09, 2024 Lucita LEÓNC, MEDICAL OFFICE ADMINISTRATOR-C Primary Care Provider Activ e Start: December 09, 2024 End: December 09, 2024 Team Status: Inactive Member Role Status Dates Lucita LEÓNC, MEDICAL OFFICE ADMINISTRATOR-C Primary Care Provider Activ e Start: December 24, 2024 End: December 24, 2024 Dr. Stewart Newman MD Attending Provider Active S tart: December 24, 2024 End: December 24, 2024 Dr. Stewart Newman MD Referring Provider Active S tart: December 24, 2024 End: December 24, 2024 Team Status: Active Member Role Status Dates Lucita LEÓNC, MEDICAL OFFICE ADMINISTRATOR-C Primary Care Provider Activ e Start: December 24, 2024 Dr. Hang Lepe MD Attending Provider Active Start: December 24, 2024 Dr. Stewart Newman MD Referring Provider Active S tart: December 24, 2024 Team Status: Inactive Member Role Status Dates Lucita Agarwal VSC, MEDICAL OFFICE ADMINISTRATOR-C Primary Care Provider Activ e Start: February 03, 2025 End: February 03, 2025 Juliano BOO PA Attending Provider Active Sta rt: February 03, 2025 End: February 03, 2025 EMA Bailey Referring Provider Active Sta rt: February 03, 2025 End: February 03, 2025 Team Status: Inactive Member Role Status Dates Lucita Agarwal VSKaterin, MEDICAL OFFICE ADMINISTRATOR-C Primary Care Provider Activ e Start: February 03, 2025 End: February 03, 2025 Lucita LEÓNC, MEDICAL OFFICE ADMINISTRATOR-C Referring Provider Active Start: February 03, 2025 End: February 03, 2025 EMA Bailey Attending Provider Active Sta rt: February 03, 2025 End: February 03, 2025 Team Status: Inactive Member Role Status Dates Lucita Agarwal VSC, MEDICAL OFFICE ADMINISTRATOR-C Primary Care Provider Activ e Start: February 10, 2025 End: February 10, 2025 Eloy Bolanos VSC, MEDICAL OFFICE ADMINISTRATOR-C Attending Provider Active Start: February 10, 2025 End: February 10, 2025 Team Status: Inactive Member Role Status Dates Lucita LEÓNC, MEDICAL OFFICE ADMINISTRATOR-C Primary Care Provider Activ e Start: March 04, 2025 End: March 04, 2025 Dr. Candice Rossi MD Attending Provider Active Start: March 04, 2025 End: March 04, 2025 Dr. Candice Rossi MD Referring Provider Active Start: March 04, 2025 End: March 04, 2025 Team Status: Active Member Role Status Dates [facility] Primary Care Provider A ctive Start: March 10, 2025 [facility] Family Provider Active Start: March 10, 2025 [facility] Referring Provider Acti ve Start: March 10, 2025 Dr. Candice Rossi MD Attending Provider Active Start: March 10, 2025 Dr. Vinod Bustamante DO Other Provider Active Sta rt: March 10, 2025 Team Status: Inactive Member Role Status Dates Lucita CHOUDHURY, MEDICAL OFFICE ADMINISTRATOR-C Primary Care Provider Activ e Start: March 11, 2025 End: March 11, 2025 Dr. Candice Rossi MD Attending Provider Active Start: March 11, 2025 End: March 11, 2025 Dr. Candice Rossi MD Referring Provider Active Start: March 11, 2025 End: March 11, 2025 Team Status: Inactive Member Role Status Dates Lucitaminnie CHOUDHURY, MEDICAL OFFICE ADMINISTRATOR-C Primary Care Provider Activ e Start: March 18, 2025 End: March 18, 2025 Lucita CHOUDHURY, MEDICAL OFFICE ADMINISTRATOR-C Referring Provider Active Start: March 18, 2025 End: March 18, 2025 Dr. Eder Castano MD Attending Provider Active Start: March 18, 2025 End: March 18, 2025 Team Status: Inactive Member Role Status Dates Lucitaminnie CHOUDHURY, MEDICAL OFFICE ADMINISTRATOR-C Primary Care Provider Activ e Start: March 25, 2025 End: March 25, 2025 Dr. Eder Castano MD Attending Provider Active Start: March 25, 2025 End: March 25, 2025 Dr. Eder Castano MD Referring Provider Active Start: March 25, 2025 End: March 25, 2025 Team Status: Inactive Member Role Status Dates Lucita CHOUDHURY, MEDICAL OFFICE ADMINISTRATOR-C Primary Care Provider Activ e Start: April 11, 2025 End: April 11, 2025 Dr. Eder Castano MD Attending Provider Active Start: April 11, 2025 End: April 11, 2025 Dr. Eder Castano MD Referring Provider Active Start: April 11, 2025 End: April 11, 2025 Team Status: Active Member Role Status Dates Lucitafabiola CHOUDHURY, MEDICAL OFFICE ADMINISTRATOR-C Primary Care Provider Activ e Start: April 11, 2025 Dr. Eder Castano MD Attending Provider Active Start: April 11, 2025 Dr. Eder Castano MD Referring Provider Active Start: April 11, 2025 Dr. Eder Castano MD Other Provider Active Start: April 11, 2025 Team Status: Inactive Member Role Status Dates Lucitaminnie CHOUDHURY, MEDICAL OFFICE ADMINISTRATOR-C Primary Care Provider Activ e Start: April 20, 2025 End: April 20, 2025 Lucita CHOUDHURY, MEDICAL OFFICE ADMINISTRATOR-C Referring Provider Active Start: April 20, 2025 End: April 20, 2025 Dr. Eder Castano MD Attending Provider Active Start: April 20, 2025 End: April 20, 2025 FOR RECORDS PERTAINING TO PATIENTS WHO ARE OR HAVE BEEN ENROLLED IN A CHEMICAL DEPENDENCY/SUBSTANCEABUSE PROGRAM, SOME INFORMATION MAY BE OMITTED. This clinical summary was aggregated from multiple sources. Caution should be exercised in using it in the provision of clinical care. This summary normalizes information from multiple sources, and as a consequence, information in this document may materially change the coding, format and clinical context of patient data. In addition, data may be omitted in some cases. CLINICAL DECISIONS SHOULD BE BASED ON THE PRIMARY CLINICAL RECORDS. [facility] [employer] [facility]. provides no warranty or guarantee of the accuracy or completeness of information in this document.
--- OUTSIDE RECORDS SUMMARY | 2025-04-27 06:57 | XMS RPT_ITS | CCD ---
Author Organization [facility] Care Team Providers Care Radio Broadcaster Name Role Phone [facility], Юлия Martinilda Primary Care Pro vider Dr. Larry Sandy Emergency Provider Dr. Keshav Ziegler Admit Provider Dr. Keshav Ziegler Attending Provider Dr. Demetra Felipe Other Provider Dr. Demetra Felipe Attending Provider Dr. Candice Rossi Attending Provider [facility], Юлия Boone Referring Provid er [facility], [place] Paolo Primary Care Pro vider EMA Mcduffie Attending Provider [facility], [place] Paolo Primary Care Pro vider [facility], [place] Veronicazman Referring Provid er EMA Mcduffie Attending Provider Dr. Candice Rossi Attending Provider Dr. Eder Castano Attending Provider Dr. Eder Castano Other Provider Klaudia Montes De Oca OD Unavailable Lucita Agarwal NP Primary Care Provider [facility], [place] Paolo Primary Care Pro vider [facility], [place] Paolo Referring Provid er Bruce HERRON, OSMAN Ott Attending Provider [facility], [facility] Primary Care Pro vider [facility], [facility] Referring Provid er Dr. Candice Rossi Attending Provider [facility], [facility] Primary Care Pro vider [facility], [facility] Referring Provid er Dr. Candice Rossi Attending Provider Unavailable Primary Care Provider Unavailabl e Stefano SANDING MACHINE TENDER, Lucita Primary Care Provider HARRIS, MARSHA K [...] Attending Unavailable HARRIS, MARSHA K Attending Unavailable STEFANO, LUCITA Primary Care Unavailable STEFANO, LUCITA Primary Care Unavailable HARRIS, MARSHA K Attending Unavailable COOPERRIDER II, VIVIEN H Referring Unavailabl e STEFANO, LUCITA Primary Care Unavailable Stefano SANDING MACHINE TENDER-C, Lucita Primary Care Provider Stefano SANDING MACHINE TENDER-C, Lucita Referring Provider Omaira HERNANDEZ, Dr. Gaines Attending Provider Asif HERNANDEZ, Dr. Nava Attending Provider Omaira HENRANDEZ, Dr. Gaines Referring Provider Omaira HERNANDEZ, Dr. Gaines Other Provider Vicky SANDING MACHINE TENDER-C, Rhett Martínez Attending Provider Stefano SANDING MACHINE TENDER-C, Lucita Attending Provider Susanna Mcclellan Attending Provider Susanna Mcclellan Referring Provider [facility] Referring Provid er Trent HERNANDEZ, Dr. William Attending Provider Trent HERNANDEZ, Dr. William Referring Provider [phone] Roberth HERNANDEZ, Dr. Mauricio Attending Provider STEFANO, LUCITA Primary Care Unavailable SUSAN CONNOLLY (RES) Attending Unavailabl e Stefano SANDING MACHINE TENDER-C, Lucita Primary Care Provider Stefano SANDING MACHINE TENDER-C, Lucita Referring Provider Juliano Hairston Attending Provider Juliano Hairston Referring Provider Beam SANDING MACHINE TENDER-C, Haobudaniel Attending Provider Stefano SANDING MACHINE TENDER-C, Lucita Primary Care Provider Stefano SANDING MACHINE TENDER-C, Lucita Referring Provider Dr. Candice Rossi MD Attending Provider Dr. Candice Rossi MD Referring Provider Stefano SANDING MACHINE TENDER-C, Lucita Primary Care Provider Susanna Mcclellan Attending Provider Stefano SANDING MACHINE TENDER-C, Lucita Referring Provider [facility] Primary Care Pro vider Dr. Vinod Bustamante DO Other Provider Dr. Eder Castano MD Attending Provider [phone] Dr. Eder Castano MD Referring Provider Stefano SANDING MACHINE TENDER-C, Lucita Primary Care Provider Trent HERNANDEZ, Dr. William Attending Provider [facility] Paolo Referring Provid er Omaira HERNANDEZ, Dr. Gaines Other Provider Andrew Rossiour Attending Unavailable Isckarus, Mansour Referring Unavailable Stefano [facility], [facility] Primary Care Unavailabl e Stefano [facility], [facility] Attending Unavailabl e [facility], [facility] Primary Care Unavailabl e Elijah Gold Attending Unavailable Eder Castano Referring Unavailable [facility], [facility] Primary Care Unavailabl e Susanna Weathers Attending Unavailable Susanna Weathers Referring Unavailable [facility], [facility] Primary Care Unavailabl e Calabrpayton, Eder Attending Unavailable [facility], [facility] Primary Care Unavailabl e Stefano C, [facility] Referring Unavailabl e Isckarus, Mansour Attending Unavailable Isckarus, Mansour Referring Unavailable [facility], [facility] Primary Care Unavailabl e Calabrpayton, Eder Attending Unavailable [facility], [facility] Primary Care Unavailabl e Calabretta, Eder Referring Unavailable Calabrpayton, Eder Attending Unavailable [facility], [facility] Primary Care Unavailabl e Rileyabrpayton, Eder Referring Unavailable CalEder cowan Attending Unavailable [facility], [facility] Referring Unavailabl e Stefano C, [facility] Primary Care Unavailabl e Rileyabrpayton, Eder Consulting Unavailable Susanna Weathers Attending Unavailable [facility], [facility] Referring Unavailabl e [facility], [facility] Primary Care Unavailabl e Rhett Perry NP Attending Unavailable [facility], [facility] Referring Unavailabl e [facility], [facility] Care Unavailabl e Hang Lepe Attending Unavailable Trent, [place] Referring Unavailable [facility], [facility] Primary Care Unavailabl e Eloy Bolanos Attending Unavailable [facility], [facility] Primary Care Unavailabl e Isckarus, Mansour Attending Unavailable Isckarus, Mansour Referring Unavailable Stefano [facility], [facility] Primary Care Unavailabl e Trent, Stewart Attending Unavailable Trent, Stewart Referring Unavailable [facility], [facility] Primary Care Unavailabl e Calabretta, Eder Attending Unavailable [facility], [facility] Primary Care Unavailabl e Calabretta, Eder Referring Unavailable Juliano Hairston Attending Unavailable Juliano Hairston Referring Unavailable [facility], [facility] Primary Care Unavailabl e CalabrEder cain Attending Unavailable [facility], Lucita Referring Unavailabl e Stefano VSC, Lucita Primary Care Unavailabl e Stefano VSC, Lucita Attending Unavailabl e Stefano VSC, Lucita Referring Unavailabl e [facility], [facility] Primary Care Unavailable Stefano VSC, Lucita Attending Unavailabl e Stefano VSC, Lucita Referring Unavailabl e Stefano VSC, Lucita Primary Care Unavailabl e Calabretta, Eder Attending Unavailable Stefano VSC, Lucita Referring Unavailabl e Stefano VSC, Lucita Primary Care Unavailabl e Calabretta, Eder Attending Unavailable Stefano VSC, Lucita Primary Care Unavailabl e Calabretta, Eder Attending Unavailable Calabretta, Eder Referring Unavailable Stefano VSC, Lucita Primary Care Unavailabl e Calabretta, Eder Consulting Unavailable Candice Rossi Attending Unavailable Stefano VSC, Lucita Primary Care Unavailabl e Juliano Hairston Attending Unavailable Stefano VSC, Lucita Referring Unavailabl e Stefano VSC, Lucita Primary Care Unavailabl e Stewart Newman Attending Unavailable [facility], [facility] Referring Unavailable Stefano VSC, Lucita Primary Care Unavailabl e Calabretta, Eder Attending Unavailable Stefano VSC, Lucita Referring Unavailabl e Stefano VSC, Lucita Primary Care Unavailabl e Roof SANDING MACHINE TENDER, Rhett H Attending Unavailable Roof SANDING MACHINE TENDER, Rhett H Referring Unavailable Stefano [facility], [facility] Primary Care Unavailabl e Candice Rossi Attending Unavailable [facility], [facility] Primary Care Unavailable [facility], [facility] Referring Unavailable Vinod Bustamante Consulting Unavailable Allergies Allergy Classification Reported Allergen(s) Allergy Type Date of Onset Reaction(s) Facility (20 sources) Cephalexin; Translations: [CEPHALEXIN] Drug Allergy 2 Rash [facility] (20 sources) Clindamycin; Translations: [CLINDAMYCIN] Drug Allergy 5 Intolerance [facility] Work Phone: (20 sources) Penicillins; Translations: [PENICILLINS] Propensity to adverse reactions 2 Rash [facility] (20 sources) Sulfonamides (Antibiotic); Translations: [SULFA (SULFONAMIDE ANTIBIOTICS)] Propensity to adverse reactions 5 Intolerance [facility] Work Phone: (6 sources) PLASTIC TAPE Propensity to adverse reactions 2 TEARS SKIN [facility] Work Phone: (14 sources) Adhesive Tape; Translations: [adhesive tape] Propensity to adverse reactions 2 Other [facility] Comment on above: TEARS SKIN (1 source) ALLERGIES NOT ON FILE; Translations: [ALLERGIES NOT ON FILE] Propensity to adverse reactions (disorder) [facility] 2 Repository (1 source) Cephalexin Drug Allergy 5 [facility] Repository (1 source) Clindamycin Drug Allergy 5 [facility] Repository Medications Current Medications Medication Drug [...] 20 mg/ml oral solution (7 sources) Uncompetitive F-pyutna-E-aspartate Receptor Antagonist, Sigma-1 Agonist Start: 025 End: [...] D2) 1,250 mcg (50,000 unit) capsule Discontinued 75953 U PO EVERY WEEK February 10, 2020 10:09am September 28, 2024 4:26pm Start: 02-10-2020 take 05279 [IU] by m outh every week Ergocalciferol (Vitamin D2) Active 97376 UNIT PO EVERY WEEK February 10, 2020 10:09am Start: 06-11-2017 End: 02-10-2020 Ergocalciferol (Vitamin D2) 50,000 UNIT capsule Discontinued 53776 U PO MO June 11, 2017 12:00am [...] current use of oral hypoglycemic medication; Translations: [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] 03-20-2023 [...] Interpretation Reference Range Facility MR/PAT.Connie 04-22-2025 MR/PAT.KEYLA [facility] Medical Records Department [address] [place] [address] PAT - Anesthesia 04/22/25 1040 MR#: [id number] Acct: [id number] Name: WINIFRED VÁSQUEZ Rep #: [id number] : 1950 74 From: Munir Adkins MD PCP: KRYSTIAN Ledesma, SANDING MACHINE TENDER-C Status:PRE [facility] Y Race: C Location: [facility] Pre-Assessment Diagnosis/Proposed Procedure Planned Operative Procedure(s): STEREO WIRE LOC, LUMPECTOMY LEFT BREAST Anesthesia History Anesthesia History - motor equipment commanding officer: Anesthesia History - motor equipment commanding officer Hx Hospitalization No 04/21/25 14:18 Any Problems [...] take am of surgery PONV PONV - motor equipment commanding officer: PONV - motor equipment commanding officer Female Yes 04/21/25 14:18 HX of Motion [...] 04/20/25 09:56 Respiratory Assessment Respiratory Assessment - motor equipment commanding officer: Respiratory Tract Infection Hx - motor equipment commanding officer Hx Respiratory Tract Infection No 04/21/25 14:18 STOP Sleep Apnea STOP Sleep Apnea - motor equipment commanding officer: STOP Sleep Apnea - motor equipment commanding officer Hx Hypertension Yes: CONTROLLED WITH MEDS 04/21/25 [...] Tobacco Use History Tobacco Use History - motor equipment commanding officer: Tobacco Use History - motor equipment commanding officer Tobacco Use Smoking Status Never smoker 04/21/25 14:18 Hx Tobacco Use No 04/21/25 14:18 Years Smoking Packs Smoked per Day Smoking Cessation Date was within the last 15 years Hx Smoking Cessation Date Hx Smoking Cessation Counseling Hematologic Medial History Hematologic Hx - motor equipment commanding officer: Hematologic Medical Hx - fabric pattern grader Hx of Blood Transfusion No 04/21/25 14:18 [...] confused, unrespo /Reproduction History /Reproductive History - motor equipment commanding officer: /Reproductive Hx- motor equipment commanding officer Hx Now Gestational Age (in weeks): EDC: [...] Home Medications ???Medic (more content not included)... [facility] MR/PAT.KEYLAon 04-21-2025 MR/PAT.[facility] Medical Records Department [address] [place] [address] PAT - Anesthesia 04/21/251945 MR#: [id number] Acct: [id number] Name: WINIFRED VÁSQUEZ Rep #: [id number] : 1950 74 From: Munir Adkins MD PCP: KRYSTIAN Ledesma, SANDING MACHINE TENDER-C Status:PRE [facility] Y Race: C Location: [facility] Pre-Assessment Diagnosis/Proposed Procedure Planned Operative Procedure(s): STEREO WIRE LOC, LUMPECTOMY LEFT BREAST Anesthesia History Anesthesia History - motor equipment commanding officer: Anesthesia History - motor equipment commanding officer Hx Hospitalization No 04/21/25 14:18 Any Problems [...] take am of surgery PONV PONV - motor equipment commanding officer: PONV - motor equipment commanding officer Female Yes 04/21/25 14:18 HX of Motion [...] 04/20/25 09:56 Respiratory Assessment Respiratory Assessment - motor equipment commanding officer: Respiratory Tract Infection Hx - motor equipment commanding officer Hx Respiratory Tract Infection No 04/21/25 14:18 STOP Sleep Apnea STOP Sleep Apnea - motor equipment commanding officer: STOP Sleep Apnea - motor equipment commanding officer Hx Hypertension Yes: CONTROLLED WITH MEDS 04/21/25 [...] Tobacco Use History Tobacco Use History - motor equipment commanding officer: Tobacco Use History - motor equipment commanding officer Tobacco Use Smoking Status Never smoker 04/21/25 14:18 Hx Tobacco Use No 04/21/25 14:18 Years Smoking Packs Smoked per Day Smoking Cessation Date was within the last 15 years Hx Smoking Cessation Date Hx Smoking Cessation Counseling Hematologic Medial History Hematologic Hx - motor equipment commanding officer: Hematologic Medical Hx - fabric pattern grader Hx of Blood Transfusion No 04/21/25 14:18 [...] confused, unrespo /Reproduction History /Reproductive History - motor equipment commanding officer: /Reproductive Hx- motor equipment commanding officer Hx Now Gestational Age (in weeks): EDC: [...] Medications ???Medic (more content not included)... Normal [facility] Surgical pathology reportOrd ered By: Jerri Luu on 04-14-2025 Surgical pathology study [facility] Immunohistochemical Stainson 04-11-2025 Immunohistochemical Stains Patient Age/Sex Location Account Attending Physician WINIFRED VÁSQUEZ 74/F BIR[place] [id number] Dr. Eder Castano MD Specimen: [id number] Received: 04/11/25 Status: GARCIA Mederos Num: [id number] Spec Type: BREAST BX Subm Dr: Dr. [...] developed and their performance characteristics determined by [facility]. They may not have been [...] minutesFormalin fixation time: 30 hours, 21 minutes [facility] 04/11/2025 CPT:36822, 01026, [id number], [id number] Patient Age/Sex Location Account Attending Physician WINIFRED VÁSQUEZ 74/F DENISE [id number] Dr. Eder Castano MD Signed (signature on file) Dr. Jerri Luu MD 04/14/25 1556 Normal [facility] Comment on above: Performed By: #### P [facility] ####[facility] [address] [facility] [place], [address] Operative Reporton 5 Operative Report [facility] Medical Records Department [address] [place] [address] Operative Report 04/11/25 1307 MR#: [id number] Acct: [id number] Name: WINIFRED VÁSQUEZ Rep #: [id number] : 1950 74 From: Eder Castano MD PCP: KRYSTIAN Ledesma, SANDING MACHINE TENDER-C Status:REG CLI Location: [facility] Operative Report (Standard) Operative Information Date of Procedure: 04/11/25 Pre-Operative Diagnosis: Left breast mass Post-Operative Diagnosis: Left breast mass Surgery/Procedure Performed: Stereotactic guided core needle biopsy of the left breast with placement of clip licensed pharmacist: No Type of Anesthesia: Local Procedure Start [...] 1309 Cosigner Signature (if applicable): CC: KRYSTIAN SANDING MACHINE TENDER-Katerin Agarwal; Dr. Eder Csatano MD Signed Normal [facility] Breast Limited Unilateralon 03-25-2025 Breast Limited Unilateral [facility] Imaging Services [address] [place] [id number] Breast Limited Unilateral MR#: [id number] Acct: [id number] Name: WINIFRED VÁSQUEZ Rep #: [id number] : 1950 F 74 From: Lefty spangler MD PCP: KRYSTIAN Ledesma, SANDING MACHINE TENDER-C Status: REG CLI Study: Breast Limited Unilateral Date of Exam: Exam# [id number] Ordering Dr: Eder Castano PROCEDURE: BREAST LIMITED [...] - NEED ADDITIONAL IMAGING EVALUATION. Reading Location: [place] [address] CC: KRYSTIAN Agarwal; Dr. Eder Castano MD Community Manager: Signed Normal [facility] Surgery Visit Reporton 03-18 Surgery Visit Report [facility] [address] [place] [address] OFFICE VISIT Date of Service: 03/18/25 MR#: [id number] Acct: [id number] Name: WINIFRED VÁSQUEZ Rep #: [id number] : 1950 Provider: Dr. Eder stallings MD Age/Sex: 74/F Location: [facility] Status: Signed Intake Vital Signs 12/09/24 [...] 5 Chief Complaint: BIRADS 5 Left Breast Tubing Drier Required: No Accompanied by: Is patient in [...] History Mot (more content not included)... Normal [facility] Breast Limited Unilateralon 03-11-2025 Breast Limited Unilateral [facility] Imaging Services [address] [place] [address] Breast Limited Unilateral MR#: [id number] Acct: [id number] Name: WINIFRED VÁSQUEZ Rep #: [id number] : 1950 F 74 From: Ruthie Tee MD PCP: Lucita Agarwal [facility], SANDING MACHINE TENDER-C Status: REG CLI Study: Breast Limited Unilateral Date of Exam: Exam# [id number] Ordering Dr: Candice Rossi MD EXAM: BREAST [...] be mailed to the patient. Reading Location: [id number] CC: [facility] SANDING MACHINE TENDERJulio Cesar Agarwal; Dr. Candice Rossi MD Community Manager: Signed Normal [facility] Breast imaging reportOrdered By: Ruthie Tee on 03-11-2025 Study report [facility] Imaging Services [address] [place], [place] [address] DIAG MAMM W/CAD, UNILAT MR#: [id number] Acct: [id number] Name: WINIFRED VÁSQUEZ Rep #: [id number] : 1950 F 74 From: Megan Tee MD PCP: Lucita Agarwal [facility], SANDING MACHINE TENDER-C Status: REG CLI Study:DIAG MAMM W/CAD, UNILAT Date of Exam: 03/11/25 Exam# [id number] Ordering Dr: Candice Rossi MD EXAM: BREAST [...] be mailed to the patient. Reading Location: [id number] CC: [facility] SANDING MACHINE TENDER-C Lucita Agarwal; Dr. Candice Rossi MD ~ Community Manager: Signed [facility] Study report [facility] Imaging Services [address] [place] [address] Lt Brst Unilat Jose Add On MR#: [id number] Acct: [id number] Name: WINIFRED VÁSQUEZ Rep #: [id number] : 1950 F 74 From: Megan Tee MD PCP: Lucita Agarwal [facility], SANDING MACHINE TENDER-C Status: [facility] CLI Study:Lt Brst Unilat Jose Add On Date of Exam : 03/11/25 Exam# [id number] Ordering Dr: Candice Rossi MD EXAM: BREAST [...] be mailed to the patient. Reading Location: [id number] CC: [facility] SANDING MACHINE TENDER-C Lucita Agarwal; Dr. Candice Rossi MD ~ Community Manager: Signed [facility] DIAG MAMM W/CAD, UNILATon DIAG MAMM W/CAD, UNILAT [facility] Imaging Services [address] [place] [address] DIAG MAMM W/CAD, UNILAT MR#: [id number] Acct: [id number] Name: WINIFRED VÁSQUEZ Rep #: [id number] : 1950 F 74 From: Ruthie Tee MD PCP: Lucita Agarwal, KRYSTIAN, SANDING MACHINE TENDER-C Status: REG CLI Study: DIAG MAMM W/CAD, UNILAT Date of Exam: 03/11/25 Exam# [id number] Ordering Dr: Candice Rossi MD EXAM: BREAST [...] be mailed to the patient. Reading Location: [id number] CC: [facility] SANDING MACHINE TENDER-C Lucita Agarwal; Dr. Candice Rossi MD Community Manager: Signed Normal [facility] Lt Brst Unilat Jose Add Onon 03-11-2025 Lt Brst Unilat Jose Add On [facility] Imaging Services [address] [place] [id number] Lt Brst Unilat Jose Add On MR#: [id number] Acct: [id number] Name: WINIFRED VÁSQUEZ Rep #: [id number] : 1950 F 74 From: Ruthie Tee MD PCP: KRYSTIAN Ledesma, SANDING MACHINE TENDER-C Status: REG CLI Study: Lt Brst Unilat Jose Add On Date of Exam: 03/11 Exam# [id number] Ordering Dr: Candice Rossi MD EXAM: BREAST [...] be mailed to the patient. Reading Location: [id number] CC: [facility] SANDING MACHINE TENDERJulio Cesar Agarwal; Dr. Candice Rossi MD Community Manager: Signed Normal [facility] Absolute lymphocyte countOrd ered By: Candice Rossi on 03-10-2025 Lymphocytes Auto (Unsp spec) [#/Vol] 2.87 10*3/uL 0.83-4.51 [facility] Absolute neutrophil countOrd ered By: Candice Rossi on 03-10-2025 Neutrophils (Bld) [#/Vol] 3.4 10*3/uL 2.0-7.7 [facility] Anion gap in Serum or Plasma Ordered By: Candice Rossi on 03-10-2025 Anion gap [Moles/Vol] 12 mmol/L 03-10 [facility] Automated lymphocyte count a s percentage of total leukocytesOrdered By: Candice Rossi on 03-10-2025 Lymphocytes/100 WBC Auto (Unsp spec) 41.5 % High 19-41 [facility] BUN/creatinine ratioOrdered By: [facility] Rossi on 03-10-2025 Urea nitrogen/Creatinine [Mass ratio] 27.6 mg/mg High 10-20 [facility] Basophil percentageOrdered B y: [facility] Rossi on 03-10-2025 Basophils/100 WBC (Bld) 0.4 % 0-1 [facility] Bilirubin, totalOrdered By: Candice Rossi on 03-10-2025 Bilirubin [Mass/Vol] 0.75 mg/dL 0.00-1.30 [facility] CBC W/Diff, Automatedon 02-24 Absolute Lymph 2.87 X10 3/uL Normal 0.83-4.51 [facility] Comment on above: Performed By: #### L 100.0100, L500.4050 ####[facility] [address] [place], [place], [id number] Absolute Neut 3.4 X10 3/uL Normal 2.0-7.7 [facility] Comment on above: Performed By: #### L 100.0100, L500.4050 ####[facility] [address] [place], [address] Basophils/100 WBC (Bld) 0.4 % Normal 0-1 [facility] Comment on above: Performed By: #### L 100.0100, L500.4050 ####[facility] [address] [place], [address] Eosinophils/100 WBC (Bld) 2.0 % Normal 0-5 [facility] Comment on above: Performed By: #### L 100.0100, L500.4050 ####[facility] [address] [place], [address] Erythrocyte distribution width (RBC) [Ratio] 13.5 % Normal 11.6-14.6 [facility] Comment on above: Performed By: #### L 100.0100, L500.4050 ####[facility] [address] [place], [address] Hematocrit (Bld) [Volume fraction] 39.1 % Normal 37-47 [facility] Comment on above: Performed By: #### L 100.0100, L500.4050 ####[facility] [address] [place], [address] Hemoglobin (Bld) [Mass/Vol] 13.1 g/dL Normal 12.0-15.0 [facility] Comment on above: Performed By: #### L 100.0100, L500.4050 ####[facility] [address] [place], [address] IG% 0.400 Normal 0.0-0.9 [facility] Comment on above: Result Comment: IG% - Immature Granulocytes (promyelocytes, myelocytes and metamyelocytes) > 1% indicates that a LEFT SHIFT is Present. Performed By: #### L 100.0100, L500.4050 ####[facility] [address] [place], [address] Lymphocytes/100 WBC (Bld) 41.5 % High 19-41 [facility] Comment on above: Performed By: #### L 100.0100, L500.4050 ####[facility] [address] [place], [address] MCH (RBC) [Entitic mass] 30.4 pg Normal 27.0-32.0 [facility] Comment on above: Performed By: #### L 100.0100, L500.4050 ####[facility] [address] [place], [address] MCHC (RBC) [Mass/Vol] 33.5 g/dL Normal 32-36 [facility] Comment on above: Performed By: #### L 100.0100, L500.4050 ####[facility] [address] [place], [address] MCV (RBC) [Entitic vol] 90.7 fL Normal 81-99 [facility] Comment on above: Performed By: #### L 100.0100, L500.4050 ####[facility] [address] [place], [address] Monocytes/100 WBC (Bld) 6.8 % Normal 0-10 [facility] Comment on above: Performed By: #### L 100.0100, L500.4050 ####[facility] [address] [place], [address] Neutrophils/100 WBC (Bld) 48.9 % Normal 47-70 [facility] Comment on above: Performed By: #### L 100.0100, L500.4050 ####[facility] [address] [place], [address] Nucleated RBC (Bld) [#/Vol] 0 10*3/uL Normal 0-5 [facility] Comment on above: Performed By: #### L 100.0100, L500.4050 ####[facility] [address] [place], [address] Platelet mean volume (Bld) [Entitic vol] 10.7 fL Normal 6.2-12.0 [facility] Comment on above: Performed By: #### L 100.0100, L500.4050 ####[facility] [address] [place], [address] Platelets (Bld) [#/Vol] 193 10*3/uL Normal 150-450 [facility] Comment on above: Performed By: #### L 100.0100, L500.4050 ####[facility] [address] [place], [address] RBC (Bld) [#/Vol] 4.31 10*6/uL Normal 4.2-5.4 [facility] Comment on above: Performed By: #### L 100.0100, L500.4050 ####[facility] [address] [place], [address] RDW SD 45.5 fl High 35.1-43.9 [facility] Comment on above: Performed By: #### L 100.0100, L500.4050 ####[facility] [address] [place], [address] WBC (Bld) [#/Vol] 6.9 10*3/uL Normal 4.4-11.0 [facility] Comment on above: Performed By: #### L 100.0100, L500.4050 ####[facility] [address] [place], [address] Carbon dioxide, total [Moles /volume] in Central venous bloodOrdered By: Candice Rossi on 03-10-2025 CO2 [Moles/Vol] 24.7 mmol/L 21.0-32.0 [facility] Chloride assayOrdered By: Maile Rossi on 03-10-2025 Chloride [Moles/Vol] 105 mmol/L 98-108 [facility] Comprehensive Metabolic Prof ilon 03-10-2025 Albumin [Mass/Vol] 4.0 g/dL Normal 3.4-4.8 [facility] Comment on above: Performed By: #### L 100.0100, L500.4050 ####[facility] [address] [place], [address] Albumin/Globulin [Mass ratio] 1.3 {ratio} Normal 0.9-2.4 [facility] Comment on above: Performed By: #### L 100.0100, L500.4050 ####[facility] [address] [place], [address] ALK PHOS 75 U/L Normal 35-104 [facility] Comment on above: Performed By: #### L 100.0100, L500.4050 ####[facility] [address] [place], [address] ALT [Catalytic activity/Vol] 9 U/L Normal <=34 [facility] Comment on above: Performed By: #### L 100.0100, L500.4050 ####[facility] [address] [place], [address] AST [Catalytic activity/Vol] 20 U/L Normal <=31 [facility] Comment on above: Performed By: #### L 100.0100, L500.4050 ####[facility] [address] [place], [address] Bilirubin [Mass/Vol] 0.75 mg/dL Normal 0.00-1.30 [facility] Comment on above: Performed By: #### L 100.0100, L500.4050 ####[facility] [address] [place], [address] BUN/CRE 27.6 RATIO High 10-20 [facility] Comment on above: Performed By: #### L 100.0100, L500.4050 ####[facility] [address] [place], [address] Calcium [Mass/Vol] 9.6 mg/dL Normal 7.6-11.0 [facility] Comment on above: Performed By: #### L 100.0100, L500.4050 ####[facility] [address] [place], [address] Chloride [Moles/Vol] 105 mmol/L Normal 98-108 [facility] Comment on above: Performed By: #### L 100.0100, L500.4050 ####[facility] [address] [place], [address] CO2 [Moles/Vol] 24.7 mmol/L Normal 21.0-32.0 [facility] Comment on above: Performed By: #### L 100.0100, L500.4050 ####[facility] [address] [place], [address] Creatinine [Mass/Vol] 0.63 mg/dL Low 0.70-1.20 [facility] Comment on above: Performed By: #### L 100.0100, L500.4050 ####[facility] [address] [place], [address] ECRCL 65.95 ml/min Normal 50-250 [facility] Comment on above: Performed By: #### L 100.0100, L500.4050 ####[facility] [address] [place], [address] GAP 12 Normal 5-15 [facility] Comment on above: Performed By: #### L 100.0100, L500.4050 ####[facility] [address] [place], [address] GFR/1.73 sq M.predicted among non-blacks MDRD (S/P/Bld) [Vol rate/Area] 92 mL/min/{1.73_m2} Normal >60 [facility] Comment on above: Result Comment: mL/m in/1.73m2 CKD-EPI Creatinine Equation (2020) Performed By: #### L 100.0100, L500.4050 ####[facility] [address] [place], [address] Globulin (S) [Mass/Vol] 3.1 g/dL Normal 2.2-4.2 [facility] Comment on above: Performed By: #### L 100.0100, L500.4050 ####[facility] [address] [place], [address] Glucose [Mass/Vol] 103 mg/dL High 70-99 [facility] Comment on above: Performed By: #### L 100.0100, L500.4050 ####[facility] [address] [place], [address] Potassium [Moles/Vol] 4.2 mmol/L Normal 3.3-5.1 [facility] Comment on above: Performed By: #### L 100.0100, L500.4050 ####[facility] [address] [place], [address] Sodium [Moles/Vol] 141 mmol/L Normal 133-145 [facility] Comment on above: Performed By: #### L 100.0100, L500.4050 ####[facility] [address] [place], [address] T PROT 7.1 g/dL Normal 5.9-8.4 [facility] Comment on above: Performed By: #### L 100.0100, L500.4050 ####[facility] [address] [place], [place], [address] Urea nitrogen [Mass/Vol] 18 mg/dL Normal 4-19 [facility] Comment on above: Performed By: #### L 100.0100, L500.4050 ####[facility] [address] [place], [place], [address] Eosinophil percentageOrdered By: Candice Rossi on 03-10-2025 Eosinophils/100 WBC (Bld) 2.0 % 0-5 [facility] Erythrocyte distribution wid th ratioOrdered By: [facility] on 03-10-2025 Erythrocyte distribution width (RBC) [Ratio] 13.5 % 11.6-14.6 [facility] Erythrocyte distribution wid th standard deviationOrdered By: [facility] on 03-10-2025 Erythrocyte distribution width (RBC) [Ratio] 45.5 fl High 35.1-43.9 [facility] Glomerular filtration rate ( GFR) estimation/1.73 sq m using serum, plasma, or whole bOrdered By: [facility] on 03-10-2025 GFR/1.73 sq M.predicted among non-blacks MDRD (S/P/Bld) [Vol rate/Area] 92 mL/min/{1.73_m2} >60 [facility] Comment on above: mL/min/1.73m2 CKD-EP I Creatinine Equation (2020) Hematocrit Auto (Bld) [Volum e fraction]Ordered By: [facility] on 03-10-2025 Hematocrit (Bld) [Volume fraction] 39.1 % 37-47 [facility] Hemoglobin measurementOrdere d By: [facility] on 03-10-2025 Hemoglobin (Bld) [Mass/Vol] 13.1 g/dL 12.0-15.0 [facility] Immature granulocytes/100 WB C Auto (Bld)Ordered By: Candice Rossi on 03-10-2025 Immature granulocytes/100 WBC (Bld) 0.400 % 0.0-0.9 [facility] Comment on above: IG% - Immature Granu locytes (promyelocytes, myelocytes and metamyelocytes) > 1% indicates that a LEFT SHIFT is Present. Laboratory - Chemistry and C hemistry - challengeOrdered By: Candice Rossi on 03-10-2025 AST [Catalytic activity/Vol] 20 U/L <32 [facility] MCV (mean corpuscular volume ) determinationOrdered By: Candice Rossi on 03-10-2025 MCV (RBC) [Entitic vol] 90.7 fL 81-99 [facility] Mean corpuscular hemoglobin (MCH) determinationOrdered By: Candice Rossi on 03-10-2025 MCH (RBC) [Entitic mass] 30.4 pg 27.0-32.0 [facility] Mean corpuscular hemoglobin concentration (MCHC) determinationOrdered By: Candice Rossi on 03-10-2025 MCHC (RBC) [Mass/Vol] 33.5 g/dL 32-36 [facility] Mean platelet volume determi nationOrdered By: Candice Rossi on 03-10-2025 Platelet mean volume (Bld) [Entitic vol] 10.7 fL 6.2-12.0 [facility] Monocyte percentageOrdered B y: Candice Rossi on 03-10-2025 Monocytes/100 WBC (Bld) 6.8 % 0-10 [facility] Neutrophil percentageOrdered By: Candice Rossi on 03-10-2025 Neutrophils/100 WBC (Bld) 48.9 % 47-70 [facility] Nucleated red blood cell per centageOrdered By: Candice Rossi on 03-10-2025 Nucleated RBC/100 WBC (Bld) [Ratio] 0 % 0-5 [facility] Platelet countOrdered By: Maile Rossi on 03-10-2025 Platelets (Bld) [#/Vol] 193 10*3/uL 150-450 [facility] Potassium measurement (mass/ volume)Ordered By: Candice Rossi on 03-10-2025 Potassium (Unsp spec) [Mass/Vol] 4.2 mmol/L 3.3-5.1 [facility] RBC Auto (Bld) [#/Vol]Ordere d By: Candice Rossi on 03-10-2025 RBC (Bld) [#/Vol] 4.31 10*6/uL 4.2-5.4 [facility] Serum creatinine measurement (mass/volume)Ordered By: Candice Rossi on 03-10-2025 Creatinine [Mass/Vol] 0.63 mg/dL Low 0.70-1.20 [facility] Serum globulin measurementOr dered By: Candice Rossi on 03-10-2025 Globulin (S) [Mass/Vol] 3.1 g/dL 2.2-4.2 [facility] Serum glucose measurement (m ass/volume)Ordered By: Candice Rossi on 03-10-2025 Glucose [Mass/Vol] 103 mg/dL High 70-99 [facility] Serum or plasma alanine campbell otransferase (ALT) measurementOrdered By: Candice Rossi on 03-10-2025 ALT [Catalytic activity/Vol] 9 U/L <35 [facility] Serum or plasma albumin jackie urement (mass/volume)Ordered By: Candice Rossi on 03-10-2025 Albumin [Mass/Vol] 4.0 g/dL 3.4-4.8 [facility] Serum or plasma albumin/glob ulin mass ratioOrdered By: Candice Rossi on 03-10-2025 Albumin/Globulin [Mass ratio] 1.3 {ratio} 0.9-2.4 [facility] Serum or plasma alkaline clemente sphatase measurementOrdered By: Candice Rossi on 03-10-2025 ALP [Catalytic activity/Vol] 75 U/L 35-104 [facility] Serum or plasma calcium jackie urement (mass/volume)Ordered By: Candice Rossi on 03-10-2025 Calcium [Mass/Vol] 9.6 mg/dL 7.6-11.0 [facility] Serum or plasma urea nitroge n measurement (mass/volume)Ordered By: Candice Rossi on 03-10-2025 Urea nitrogen [Mass/Vol] 18 mg/dL 4-19 [facility] Sodium levelOrdered By: Andrew Rossi on 03-10-2025 Sodium [Moles/Vol] 141 mmol/L 133-145 [facility] Total proteinOrdered By: Bandar Rossi on 03-10-2025 Protein [Mass/Vol] 7.1 g/dL 5.9-8.4 [facility] White blood cell (WBC) count Ordered By: Candice Rossi on 03-10-2025 WBC (Bld) [#/Vol] 6.9 10*3/uL 4.4-11.0 [facility] Breast imaging reportOrdered By: Ruthie Tee on 03-04-2025 Study report [facility] Imaging Services [address] [place] [address] SCRN MAMM (CAD)W/JOSE BILAT MR#: [id number] Acct: [id number] Name: WINIFRED VÁSQUEZ Rep #: [id number] : 1950 F 74 From: Megan Tee MD PCP: KRYSTIAN Ledesma, [employer] Status: REG CLI Study:SCRN MAMM (CAD)W/JOSE BILAT Date of Exa m: 03/04/25 Exam# [id number] Ordering Dr: Candice Rossi MD EXAM: SCRN [...] be mailed to the patient. Reading Location: [facility] CC: [facility] [employer]ING MACHINE [employer] Lucita Agarwal; Dr. Candice Rossi MD ~ Community Manager: Signed [facility] SCRN MAMM (CAD)W/JOSE BILATo n 03-04-2025 SCRN MAMM (CAD)W/JOSE BILAT [facility] Imaging Services [address] [place] [address] SCRN MAMM (CAD)W/JOSE BILAT MR#: [id number] Acct: [id number] Name: WINIFRED VÁSQUEZ Rep #: [id number] : 1950 F 74 From: Ruthie Tee MD PCP: Lucita Agarwal, [facility], [employer]INE [employer] Status: REG CLI Study: SCRN MAMM (CAD)W/JOSE BILAT Date of Exam: 07/21 Exam# [id number] Ordering Dr: Candice Rossi MD EXAM: SCRN [...] be mailed to the patient. Reading Location: [facility] CC: [facility] OSMAN Agarwal; Dr. Candice Rossi MD Community Manager: Signed Normal [facility] Absolute lymphocyte countOrd ered By: [facility] on 02-10-2025 Lymphocytes Auto (Unsp spec) [#/Vol] 3.67 10*3/uL 0.83-4.51 [facility] Absolute neutrophil countOrd ered By: bulun Beam on 02-10-2025 Neutrophils (Bld) [#/Vol] 7.9 10*3/uL High 2.0-7.7 [facility] Anion gap in Serum or Plasma Ordered By: [facility] on 02-10-2025 Anion gap [Moles/Vol] 14 mmol/L 5-15 [facility] Automated lymphocyte count a s percentage of total leukocytesOrdered By: bulun Beam on 02-10-2025 Lymphocytes/100 WBC Auto (Unsp spec) 29.1 % 19-41 [facility] BUN/creatinine ratioOrdered By: [facility] on 02-10-2025 Urea nitrogen/Creatinine [Mass ratio] 26.1 mg/mg High 10-20 [facility] Basophil percentageOrdered B y: Zebulun Beam on 02-10-2025 Basophils/100 WBC (Bld) 0.3 % 0-1 [facility] Bilirubin, totalOrdered By: bulun Beam on 02-10-2025 Bilirubin [Mass/Vol] 1.04 mg/dL 0.00-1.30 [facility] CBC W/Diff, Automatedon 01-255 Absolute Lymph 3.67 X10 3/uL Normal 0.83-4.51 [facility] Comment on above: Performed By: #### L 100.0100, L503.7505, L500.4050 #### [facility] [address] [place], [address] Absolute Neut 7.9 X10 3/uL High 2.0-7.7 [facility] Comment on above: Performed By: #### L 100.0100, L503.7505, L500.4050 #### [facility] [address] [place], [address] Basophils/100 WBC (Bld) 0.3 % Normal 0-1 [facility] Comment on above: Performed By: #### L 100.0100, L503.7505, L500.4050 #### [facility] [address] [place], [address] Eosinophils/100 WBC (Bld) 0.6 % Normal 0-5 [facility] Comment on above: Performed By: #### L 100.0100, L503.7505, L500.4050 #### [facility] [address] [place], [address] Erythrocyte distribution width (RBC) [Ratio] 12.5 % Normal 11.6-14.6 [facility] Comment on above: Performed By: #### L 100.0100, L503.7505, L500.4050 #### [facility] [address] [place], [address] Hematocrit (Bld) [Volume fraction] 45.3 % Normal 37-47 [facility] Comment on above: Performed By: #### L 100.0100, L503.7505, L500.4050 #### [facility] [address] [place], [address] Hemoglobin (Bld) [Mass/Vol] 15.4 g/dL High 12.0-15.0 [facility] Comment on above: Performed By: #### L 100.0100, L503.7505, L500.4050 #### [facility] [address] [place], [address] IG% 1.300 High 0.0-0.9 [facility] Comment on above: Result Comment: IG% - Immature Granulocytes (promyelocytes, myelocytes and metamyelocytes) > 1% indicates that a LEFT SHIFT is Present. Performed By: #### L 100.0100, L503.7505, L500.4050 #### [facility] [address] [place], [address] Lymphocytes/100 WBC (Bld) 29.1 % Normal 19-41 [facility] Comment on above: Performed By: #### L 100.0100, L503.7505, L500.4050 #### [facility] [address] [place], [address] MCH (RBC) [Entitic mass] 30.4 pg Normal 27.0-32.0 [facility] Comment on above: Performed By: #### L 100.0100, L503.7505, L500.4050 #### [facility] [address] [place], [address] MCHC (RBC) [Mass/Vol] 34.0 g/dL Normal 32-36 [facility] Comment on above: Performed By: #### L 100.0100, L503.7505, L500.4050 #### [facility] [address] [place], [address] MCV (RBC) [Entitic vol] 89.3 fL Normal 81-99 [facility] Comment on above: Performed By: #### L 100.0100, L503.7505, L500.4050 #### [facility] [address] [place], [address] Monocytes/100 WBC (Bld) 6.1 % Normal 0-10 [facility] Comment on above: Performed By: #### L 100.0100, L503.7505, L500.4050 #### [facility] [address] [place], [address] Neutrophils/100 WBC (Bld) 62.6 % Normal 47-70 [facility] Comment on above: Performed By: #### L 100.0100, L503.7505, L500.4050 #### [facility] [address] [place], [address] Nucleated RBC (Bld) [#/Vol] 0 10*3/uL Normal 0-5 [facility] Comment on above: Performed By: #### L 100.0100, L503.7505, L500.4050 #### [facility] [address] [place], [address] Platelet mean volume (Bld) [Entitic vol] 10.0 fL Normal 6.2-12.0 [facility] Comment on above: Performed By: #### L 100.0100, L503.7505, L500.4050 #### [facility] [address] [place], [address] Platelets (Bld) [#/Vol] 370 10*3/uL Normal 150-450 [facility] Comment on above: Performed By: #### L 100.0100, L503.7505, L500.4050 #### [facility] [address] [place], [address] RBC (Bld) [#/Vol] 5.07 10*6/uL Normal 4.2-5.4 [facility] Comment on above: Performed By: #### L 100.0100, L503.7505, L500.4050 #### [facility] [address] [place], [address] RDW SD 40.7 fl Normal 35.1-43.9 [facility] Comment on above: Performed By: #### L 100.0100, L503.7505, L500.4050 #### [facility] [address] [place], [address] WBC (Bld) [#/Vol] 12.6 10*3/uL High 4.4-11.0 [facility] Comment on above: Performed By: #### L 100.0100, L503.7505, L500.4050 #### [facility] [address] [place], [address] Carbon dioxide, total [Moles /volume] in Central venous bloodOrdered By: Eloy Bolanos on 02-10-2025 CO2 [Moles/Vol] 24.0 mmol/L 21.0-32.0 [facility] Chloride assayOrdered By: Hao Bolanos on 02-10-2025 Chloride [Moles/Vol] 99 mmol/L 98-108 [facility] Comprehensive Metabolic Prof ilon 02-10-2025 Albumin [Mass/Vol] 3.9 g/dL Normal 3.4-4.8 [facility] Comment on above: Performed By: #### L 100.0100, L503.7505, L500.4050 #### [facility] [address] [place], [address] Albumin/Globulin [Mass ratio] 1.2 {ratio} Normal 0.9-2.4 [facility] Comment on above: Performed By: #### L 100.0100, L503.7505, L500.4050 #### [facility] [address] [place], [address] ALK PHOS 67 U/L Normal 35-104 [facility] Comment on above: Performed By: #### L 100.0100, L503.7505, L500.4050 #### [facility] [address] [place], [address] ALT [Catalytic activity/Vol] 21 U/L Normal <=34 [facility] Comment on above: Performed By: #### L 100.0100, L503.7505, L500.4050 #### [facility] [address] [place], [address] AST [Catalytic activity/Vol] 26 U/L Normal <=31 [facility] Comment on above: Performed By: #### L 100.0100, L503.7505, L500.4050 #### [facility] [address] [place], [address] Bilirubin [Mass/Vol] 1.04 mg/dL Normal 0.00-1.30 [facility] Comment on above: Performed By: #### L 100.0100, L503.7505, L500.4050 #### [facility] [address] [place], [address] BUN/CRE 26.1 RATIO High 10-20 [facility] Comment on above: Performed By: #### L 100.0100, L503.7505, L500.4050 #### [facility] [address] [place], [address] Calcium [Mass/Vol] 9.9 mg/dL Normal 7.6-11.0 [facility] Comment on above: Performed By: #### L 100.0100, L503.7505, L500.4050 #### [facility] [address] [place], [address] Chloride [Moles/Vol] 99 mmol/L Normal 98-108 [facility] Comment on above: Performed By: #### L 100.0100, L503.7505, L500.4050 #### [facility] [address] [place], [address] CO2 [Moles/Vol] 24.0 mmol/L Normal 21.0-32.0 [facility] Comment on above: Performed By: #### L 100.0100, L503.7505, L500.4050 #### [facility] [address] [place], [address] Creatinine [Mass/Vol] 1.08 mg/dL Normal 0.70-1.20 [facility] Comment on above: Performed By: #### L 100.0100, L503.7505, L500.4050 #### [facility] [address] [place], [address] GAP 14 Normal 5-15 [facility] Comment on above: Performed By: #### L 100.0100, L503.7505, L500.4050 #### [facility] [address] [place], [address] GFR/1.73 sq M.predicted among non-blacks MDRD (S/P/Bld) [Vol rate/Area] 54 mL/min/{1.73_m2} Low >60 [facility] Comment on above: Result Comment: mL/m in/1.73m2 CKD-EPI Creatinine Equation (2020) Performed By: #### L 100.0100, L503.7505, L500.4050 #### [facility] [address] [place], [address] Globulin (S) [Mass/Vol] 3.2 g/dL Normal 2.2-4.2 [facility] Comment on above: Performed By: #### L 100.0100, L503.7505, L500.4050 #### [facility] [address] [place], [address] Glucose [Mass/Vol] 104 mg/dL High 70-99 [facility] Comment on above: Performed By: #### L 100.0100, L503.7505, L500.4050 #### [facility] [address] [place], [address] Potassium [Moles/Vol] 3.8 mmol/L Normal 3.3-5.1 [facility] Comment on above: Performed By: #### L 100.0100, L503.7505, L500.4050 #### [facility] [address] [place], [address] Sodium [Moles/Vol] 137 mmol/L Normal 133-145 [facility] Comment on above: Performed By: #### L 100.0100, L503.7505, L500.4050 #### [facility] [address] [place], [address] T PROT 7.1 g/dL Normal 5.9-8.4 [facility] Comment on above: Performed By: #### L 100.0100, L503.7505, L500.4050 #### [facility] [address] [place], [address] Urea nitrogen [Mass/Vol] 28 mg/dL High 4-19 [facility] Comment on above: Performed By: #### L 100.0100, [id number], [id number] #### [facility] [address] [place], [address] Eosinophil percentageOrdered By: Zebulun Beam on 02-10-2025 Eosinophils/100 WBC (Bld) 0.6 % 0-5 [facility] Erythrocyte distribution wid th (RBC) [Ratio]Ordered By: Zebulun Beam on 02-10-2025 Erythrocyte distribution width (RBC) [Entitic vol] 40.7 fL 35.1-43.9 [facility] Erythrocyte distribution wid th ratioOrdered By: Zebulun Beam on 02-10-2025 Erythrocyte distribution width (RBC) [Ratio] 12.5 % 11.6-14.6 [facility] Erythrocyte distribution wid th standard deviationOrdered By: Zebulun Beam on 02-10-2025 Erythrocyte distribution width (RBC) [Ratio] 40.7 fl 35.1-43.9 [facility] GFR/1.73 sq M.predicted ronn g non-blacks MDRD (S/P/Bld) [Vol rate/Area]Ordered By: Zebulun Beam on 02-10-2025 Estimated GFR (MDRD) Non-Af Amer 54 Low >60 [facility] [facility] Comment on above: mL/min/1.73m2 CKD-EP I Creatinine Equation (2020) Glomerular filtration rate ( GFR) estimation/1.73 sq m using serum, plasma, or whole bOrdered By: Zebulun Beam on 02-10-2025 GFR/1.73 sq M.predicted among non-blacks MDRD (S/P/Bld) [Vol rate/Area] 54 mL/min/{1.73_m2} Low >60 [facility] Comment on above: mL/min/1.73m2 CKD-EP I Creatinine Equation (2020) Hematocrit Auto (Bld) [Volum e fraction]Ordered By: Shrutin Beam on 02-10-2025 Hematocrit (Bld) [Volume fraction] 45.3 % 37-47 [facility] Hemoglobin measurementOrdere d By: Shrutin Beam on 02-10-2025 Hemoglobin (Bld) [Mass/Vol] 15.4 g/dL High 12.0-15.0 [facility] Immature granulocytes/100 WB C Auto (Bld)Ordered By: Iselalun Beam on 02-10-2025 Immature granulocytes/100 WBC (Bld) 1.300 % High 0.0-0.9 [facility] Comment on above: IG% - Immature Granu locytes (promyelocytes, myelocytes and metamyelocytes) > 1% indicates that a LEFT SHIFT is Present. L503.7505on 02-10-2025 Natriuretic peptide B (Bld) [Mass/Vol] 877 pg/mL Normal <=1800 [facility] Comment on above: Result Comment: Hear t Failure Unlikely: < 300 pg/mL Heart Failure Likely < 50 Years: > 450 pg/mL 50-75 Years: > 900 pg/mL >75 Years: > 1800 pg/mL Performed By: #### L 100.0100, L503.7505, L500.4050 #### [facility] [address] [place], [address] Laboratory - Chemistry and C hemistry - challengeOrdered By: Eloy Bolanos on 02-10-2025 AST [Catalytic activity/Vol] 26 U/L <32 [facility] Lymphocytes Auto (Unsp spec) [#/Vol]Ordered By: [facility] on 02-10-2025 Lymphocytes (Bld) [#/Vol] 3.67 10*3/uL 0.83-4.51 [facility] Lymphocytes/100 WBC Auto (Un sp spec)Ordered By: [facility] on 02-10-2025 Lymphocytes/100 WBC (Bld) 29.1 % 19-41 [facility] MCV (mean corpuscular volume ) determinationOrdered By: [facility] on 02-10-2025 MCV (RBC) [Entitic vol] 89.3 fL 81-99 [facility] Mean corpuscular hemoglobin (MCH) determinationOrdered By: [facility] on 02-10-2025 MCH (RBC) [Entitic mass] 30.4 pg 27.0-32.0 [facility] Mean corpuscular hemoglobin concentration (MCHC) determinationOrdered By: [facility] on 02-10-2025 MCHC (RBC) [Mass/Vol] 34.0 g/dL 32-36 [facility] Mean platelet volume determi nationOrdered By: [facility] on 02-10-2025 Platelet mean volume (Bld) [Entitic vol] 10.0 fL 6.2-12.0 [facility] Monocyte percentageOrdered B y: [facility] on 02-10-2025 Monocytes/100 WBC (Bld) 6.1 % 0-10 [facility] Natriuretic peptide.B prohor celine N-Terminal [Mass/Vol]Ordered By: cristelaanita Bolanos on 02-10-2025 Natriuretic peptide B (Bld) [Mass/Vol] 877 pg/mL <1800 [facility] Comment on above: Heart Failure Unlike ly: < 300 pg/mLHeart Failure Likely< 50 Years: > 450 pg/mL50-75 Years: > 900 pg/mL>75 Years: > 1800 pg/mL Natriuretic peptide.B prohor celine N-Terminal [Mass/volume] in Serum or PlasmaOrdered By: Eloy Bolanos on 02-10-2025 Natriuretic peptide.B prohormone N-Terminal [Mass/Vol] 877 pg/mL <1800 [facility] Comment on above: Heart Failure Unlike ly: < 300 pg/mLHeart Failure Likely< 50 Years: > 450 pg/mL50-75 Years: > 900 pg/mL>75 Years: > 1800 pg/mL Neutrophil percentageOrdered By: Eloy Bolanos on 02-10-2025 Neutrophils/100 WBC (Bld) 62.6 % 47-70 [facility] Nucleated red blood cell per centageOrdered By: Eloy Bolanos on 02-10-2025 Nucleated RBC/100 WBC (Bld) [Ratio] 0 % 0-5 [facility] Platelet countOrdered By: Hao Bolanos on 02-10-2025 Platelets (Bld) [#/Vol] 370 10*3/uL 150-450 [facility] Potassium (Unsp spec) [Mass/ Vol]Ordered By: Eloy Bolanos on 02-10-2025 Potassium [Moles/Vol] 3.8 mmol/L 3.3-5.1 [facility] Potassium measurement (mass/ volume)Ordered By: Eloy Bolanos on 02-10-2025 Potassium (Unsp spec) [Mass/Vol] 3.8 mmol/L 3.3-5.1 [facility] RBC Auto (Bld) [#/Vol]Ordere d By: Eloy Bolanos on 02-10-2025 RBC (Bld) [#/Vol] 5.07 10*6/uL 4.2-5.4 [facility] Serum creatinine measurement (mass/volume)Ordered By: Eloy Bolanos on 02-10-2025 Creatinine [Mass/Vol] 1.08 mg/dL 0.70-1.20 [facility] Serum globulin measurementOr dered By: Eloy Bolanos on 02-10-2025 Globulin (S) [Mass/Vol] 3.2 g/dL 2.2-4.2 [facility] Serum glucose measurement (m ass/volume)Ordered By: Eloy Beam on 02-10-2025 Glucose [Mass/Vol] 104 mg/dL High 70-99 [facility] Serum or plasma alanine campbell otransferase (ALT) measurementOrdered By: Iselalun Beam on 02-10-2025 ALT [Catalytic activity/Vol] 21 U/L <35 [facility] Serum or plasma albumin jackie urement (mass/volume)Ordered By: Eloy Beam on 02-10-2025 Albumin [Mass/Vol] 3.9 g/dL 3.4-4.8 [facility] Serum or plasma albumin/glob ulin mass ratioOrdered By: Eloy Bolanos on 02-10-2025 Albumin/Globulin [Mass ratio] 1.2 {ratio} 0.9-2.4 [facility] Serum or plasma alkaline clemente sphatase measurementOrdered By: Iselaanita Beam on 02-10-2025 ALP [Catalytic activity/Vol] 67 U/L 35-104 [facility] Serum or plasma calcium jackie urement (mass/volume)Ordered By: Eloy Beam on 02-10-2025 Calcium [Mass/Vol] 9.9 mg/dL 7.6-11.0 [facility] Serum or plasma urea nitroge n measurement (mass/volume)Ordered By: Eloy Beam on 02-10-2025 Urea nitrogen [Mass/Vol] 28 mg/dL High 4-19 [facility] Sodium levelOrdered By: Isela Bolanos on 02-10-2025 Sodium [Moles/Vol] 137 mmol/L 133-145 [facility] Total proteinOrdered By: Shadi Bolanos on 02-10-2025 Protein [Mass/Vol] 7.1 g/dL 5.9-8.4 [facility] White blood cell (WBC) count Ordered By: Eloy Bolanos on 02-10-2025 WBC (Bld) [#/Vol] 12.6 10*3/uL High 4.4-11.0 [facility] Chest PA and Lateralon 02-03 Chest PA and Lateral 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 Lucita Agarwal; [employer] Community Manager: Signed Normal [facility] No Panel InformationOrdered By: Juliano Cummins on 02-03-2025 Influenza Types A,B Rapid (Clinic) Negative [facility] POC SARS CoV-2 Antigen Negative [facility] Urgent Care Visit Reporton 0 02-03-2025 Urgent Care Visit Report [facility] [address], [address] [place] [address] OFFICE VISIT Date of Service: 02/03/25 MR#: [id number] Acct: [id number] Name: WINIFRED VÁSQUEZ Rep #: [id number] : 1950 Provider: EMA Scales Age/Sex: 74/F Location: [facility] Status: Signed Intake Vital Signs 12/09/24 15:20 [...] Reasons: Cough Chief Complaint: cough, SOB, fatigue Tubing Drier Required: No Is patient in pain?: No [...] x 1 week without improvement. seen at [facility] 6 days ago, dxd with dehydration and flu. pt on Eliquis--cannot have Tamiflu. was given Zofran and advised to f/u with PCP. pt not eating or drinking much at all per . [facility] Medical History Wears glasses Cancer Diabetes Arthritis [...] use type: does not use caffeine: No emanuel/druze: [employer] seatbelt use: always do you feel safe at home: Yes HPI HPI Chief Complaint: cough, SOB, fatigue Details: WINIFRED VÁSQUEZ, is a 74 F who presents to the office today for cough, SOB, fatigue, weak x 1 week without improvement. She was evaluated at [facility] 6 days ago, dxd with dehydration [...] Psych Appe (more content not included)... Normal [facility] ALLIED HEALTHon 01-28-2025 ALLIED HEALTH HNO ID: [id number] Author: YOBANY CANTU CT Service: ? Author [...] PATIENT PRESENTS WITH AN IMPLANTABLE OR ATTACHED GLOBAL IMPLEMENTATION MANAGER: No RADIOLOGY DEPARTMENT: General X-ray: Exam(s) Completed: Chest X-Ray PERIPHERAL IV DATA: Not applicable SIGNED BY: JEN Gray January 28, 2025 11:34 AM Normal [facility] CBC W Auto Differential pane l (Bld)on 01-28-2025 Basophils (Bld) [#/Vol] 10*3/uL Normal <0.11 [facility] Comment on above: Order Comment: Speci men Type: BLOOD SPECIMEN Ordering Facility: [facility] Address: [address] [place] [address] Performed By: #### 5 7021-8 #### [facility] CLIA [id number] [address] [place] [address] [place] Basophils/100 WBC (Bld) 0.4 % Normal [facility] Comment on above: Order Comment: Speci men Type: BLOOD SPECIMEN Ordering Facility: [facility] Address: [address] [place] [address] Performed By: #### 5 7021-8 #### [facility] CLIA [id number] [address] [place] [address] [place] Differential cell count method Nom (Bld) Auto Normal [facility] Comment on above: Order Comment: Speci men Type: BLOOD SPECIMEN Ordering Facility: [facility] Address: [address] [place] [address] Performed By: #### 5 7021-8 #### [facility] CLIA [id number] [address] [place] [id number] [place] Eosinophils (Bld) [#/Vol] 10*3/uL Normal <0.46 [facility] Comment on above: Order Comment: Speci men Type: BLOOD SPECIMEN Ordering Facility: [facility] Address: [address] [place] [address] Performed By: #### 5 7021-8 #### [facility] CLIA [id number] [address] [place] [address] [place] Eosinophils/100 WBC (Bld) 0.0 % Normal [facility] Comment on above: Order Comment: Speci men Type: BLOOD SPECIMEN Ordering Facility: [facility] Address: [address] [place] [address] Performed By: #### 5 7021-8 #### [facility] CLIA [id number] [address] [place] [address] [place] Erythrocyte distribution width (RBC) [Ratio] 12.7 % Normal 11.5-15.0 [facility] Comment on above: Order Comment: Speci men Type: BLOOD SPECIMEN Ordering Facility: [facility] Address: [address] [place] [address] Performed By: #### 5 7021-8 #### [facility] CLIA [id number] [address] [place] Hematocrit (Bld) [Volume fraction] 40.8 % Normal 36.0-46.0 [facility] Comment on above: Order Comment: Speci men Type: BLOOD SPECIMEN Ordering Facility: [facility] Address: [address] [place] [address] Performed By: #### 5 7021-8 #### [facility] CLIA [id number] [address] [place] [address] [place] Hemoglobin (Bld) [Mass/Vol] 13.7 g/dL Normal 11.5-15.5 [facility] Comment on above: Order Comment: Speci men Type: BLOOD SPECIMEN Ordering Facility: [facility] Address: [address] [place] [address] Performed By: #### 5 7021-8 #### [facility] CLIA [id number] [address] [place] [address] [place] Immature granulocytes (Bld) [#/Vol] 0.03 10*3/uL Normal <0.10 [facility] Comment on above: Order Comment: Speci men Type: BLOOD SPECIMEN Ordering Facility: [facility] Address: [address] [place] [address] Performed By: #### 5 7021-8 #### [facility] CLIA [id number] [address] [place], [place] [address] [place] [address] Immature granulocytes/100 WBC (Bld) 0.6 % Normal [facility] Comment on above: Order Comment: Speci men Type: BLOOD SPECIMEN Ordering Facility: [facility] Address: [address] [place] [address] Performed By: #### 5 7021-8 #### [facility] CLIA [id number] [address] [place] Lymphocytes (Bld) [#/Vol] 0.75 10*3/uL Low 1.00-4.00 [facility] Comment on above: Order Comment: Speci men Type: BLOOD SPECIMEN Ordering Facility: [facility] Address: [address] [place] [address] Performed By: #### 5 7021-8 #### [facility] CLIA [id number] [address] [place] [address] OF [facility] Lymphocytes/100 WBC (Bld) 14.9 % Normal [facility] Comment on above: Order Comment: Speci men Type: BLOOD SPECIMEN Ordering Facility: [facility] Address: [address] [place] [address] Performed By: #### 5 7021-8 #### [facility] CLIA [id number] [address] [place] [address] [place] MCH (RBC) [Entitic mass] 30.4 pg Normal 26.0-34.0 [facility] Comment on above: Order Comment: Speci men Type: BLOOD SPECIMEN Ordering Facility: [facility] Address: [address] [place] [address] Performed By: #### 5 7021-8 #### [facility] CLIA [id number] [address] [place] [address] [place] MCHC (RBC) [Mass/Vol] 33.6 g/dL Normal 30.5-36.0 [facility] Comment on above: Order Comment: Speci men Type: BLOOD SPECIMEN Ordering Facility: [facility] Address: [address] [place] [address] Performed By: #### 5 7021-8 #### [facility] CLIA [id number] [address] [place] [address] [place] MCV (RBC) [Entitic vol] 90.7 fL Normal 80.0-100.0 [facility] Comment on above: Order Comment: Speci men Type: BLOOD SPECIMEN Ordering Facility: [facility] Address: [address] [place] [address] Performed By: #### 5 7021-8 #### [facility] CLIA [id number] [address] [place] [address] [place] Monocytes (Bld) [#/Vol] 0.55 10*3/uL Normal <0.87 [facility] Comment on above: Order Comment: Speci men Type: BLOOD SPECIMEN Ordering Facility: [facility] Address: [address] [place] [address] Performed By: #### 5 7021-8 #### [facility] CLIA [id number] [address] [place] [id number] [place] [address] [place] Monocytes/100 WBC (Bld) 10.9 % Normal [facility] Comment on above: Order Comment: Speci men Type: BLOOD SPECIMEN Ordering Facility: [facility] Address: [address] [place] [address] Performed By: #### 5 7021-8 #### [facility] CLIA [id number] [address] [place] [address] [place] Neutrophils (Bld) [#/Vol] 3.70 10*3/uL Normal 1.45-7.50 [facility] Comment on above: Order Comment: Speci men Type: BLOOD SPECIMEN Ordering Facility: [facility] Address: [address] [place] [address] Performed By: #### 5 7021-8 #### [facility] CLIA [id number] [address] [place] [address] [place] Neutrophils/100 WBC (Bld) 73.2 % Normal [facility] Comment on above: Order Comment: Speci men Type: BLOOD SPECIMEN Ordering Facility: [facility] Address: [address] [place] [address] Performed By: #### 5 7021-8 #### [facility] CLIA [id number] [address] [place] [address] [place] Nucleated RBC (Bld) [#/Vol] Normal [facility] Comment on above: Order Comment: Speci men Type: BLOOD SPECIMEN Ordering Facility: [facility] Address: [address] [place] [address] Performed By: #### 5 7021-8 #### [facility] CLIA [id number] [address] [place] [address] [place] Nucleated RBC/100 WBC (Bld) [Ratio] Normal [facility] Comment on above: Order Comment: Speci men Type: BLOOD SPECIMEN Ordering Facility: [facility] Address: [address] [place] [address] Performed By: #### 5 7021-8 #### [facility] CLIA [id number] [address] [place] [address] [place] Platelet mean volume (Bld) [Entitic vol] 10.7 fL Normal 9.0-12.7 [facility] Comment on above: Order Comment: Speci men Type: BLOOD SPECIMEN Ordering Facility: [facility] Address: [address] [place] [address] Performed By: #### 5 7021-8 #### [facility] CLIA [id number] [address] [place] [address] [place] Platelets (Bld) [#/Vol] 125 10*3/uL Low 150-400 [facility] Comment on above: Order Comment: Speci men Type: BLOOD SPECIMEN Ordering Facility: [facility] Address: [address] [place], [place] [address] Performed By: #### 5 7021-8 #### [facility] CLIA [id number] [address] [place] [address] [facility] RBC (Bld) [#/Vol] 4.50 10*6/uL Normal 3.90-5.20 [facility] Comment on above: Order Comment: Speci men Type: BLOOD SPECIMEN Ordering Facility: [facility] Address: [address] [place] [address] Performed By: #### 5 7021-8 #### [facility] CLIA [id number] [address] [place], [place] [address] [place] [address] WBC (Bld) [#/Vol] 5.05 10*3/uL Normal 3.70-11.00 [facility] Comment on above: Order Comment: Speci men Type: BLOOD SPECIMEN Ordering Facility: [facility] Address: [address] [place] [address] Performed By: #### 5 7021-8 #### [facility] CLIA [id number] [address] [place] [id number] [place] [address] OF [facility] Comprehensive metabolic 2000 panelon 01-28-2025 Albumin [Mass/Vol] 3.8 g/dL Low 3.9-4.9 [facility] Comment on above: Order Comment: Speci men Type: BLOOD SPECIMEN Ordering Facility: [facility] Address: [address] [place] [address] Performed By: #### 1 9123-9, 47146-4 #### [facility] CLIA [id number] [address] [place] [address] [facility] ALP [Catalytic activity/Vol] 80 U/L Normal 34-123 [facility] Comment on above: Order Comment: Speci men Type: BLOOD SPECIMEN Ordering Facility: [facility] Address: [address] [place] [address] Performed By: #### 1 9123-9, 21352-9 #### [facility] CLIA [id number] [address] [place] [address] [place] ALT With P-5'-P [Catalytic activity/Vol] 15 U/L Normal 7-38 [facility] Comment on above: Order Comment: Speci men Type: BLOOD SPECIMEN Ordering Facility: [facility] Address: [address] [place] [address] Performed By: #### 1 9123-9, 89682-0 #### [facility] CLIA [id number] [address] [place] [address] [place] Anion gap [Moles/Vol] 13 mmol/L Normal 8-15 [facility] Comment on above: Order Comment: Speci men Type: BLOOD SPECIMEN Ordering Facility: [facility] Address: [address] [place] [address] Performed By: #### 1 9123-9, 99964-9 #### [facility] CLIA [id number] [address] [place] [address] [place] AST With P-5'-P [Catalytic activity/Vol] 30 U/L Normal 13-35 [facility] Comment on above: Order Comment: Speci men Type: BLOOD SPECIMEN Ordering Facility: [facility] Address: [address] [place] [address] Performed By: #### 1 9123-9, 36656-4 #### [facility] CLIA [id number] [address] [place] [address] [place] Bilirubin [Mass/Vol] 0.8 mg/dL Normal 0.2-1.3 [facility] Comment on above: Order Comment: Speci men Type: BLOOD SPECIMEN Ordering Facility: [facility] Address: [address] [place] [address] Performed By: #### 1 9123-9, 39264-7 #### [facility] CLIA [id number] [address] [place] [address] [place] Calcium [Mass/Vol] 9.1 mg/dL Normal 8.5-10.2 [facility] Comment on above: Order Comment: Speci men Type: BLOOD SPECIMEN Ordering Facility: [facility] Address: [address] [place] [address] Performed By: #### 1 9123-9, 86545-8 #### [facility] CLIA [id number] [address] [place] [address] [place] Chloride [Moles/Vol] 96 mmol/L Low 98-107 [facility] Comment on above: Order Comment: Speci men Type: BLOOD SPECIMEN Ordering Facility: [facility] Address: [address] [place] [address] Performed By: #### 1 9123-9, #### [facility] CLIA [id number] [address] [place] [address] [place] CO2 [Moles/Vol] 23 mmol/L Normal 22-30 [facility] Comment on above: Order Comment: Speci men Type: BLOOD SPECIMEN Ordering Facility: [facility] Address: [address] [place] [address] Performed By: #### 1 9123-9, 72316-3 #### [facility] CLIA [id number] [address] [place] [address] [place] Creatinine [Mass/Vol] 0.76 mg/dL Normal 0.58-0.96 [facility] Comment on above: Order Comment: Speci men Type: BLOOD SPECIMEN Ordering Facility: [facility] Address: [address] [place] [address] Performed By: #### 1 9123-9, #### [facility] CLIA [id number] [address] [place] [address] [place] [facility] [place] Creatinine and Glomerular filtration rate.predicted panel (S/P/Bld) 82 mL/min/1.73m??? Normal >=60 [facility] Comment on above: Order Comment: Speci men Type: BLOOD SPECIMEN Ordering Facility: [facility] Address: [address] [place] [address] Result Comment: Abby mated Glomerular Filtration Rate [...] actual GFR. Performed By: #### 1 9123-9, 52030-6 #### [facility] CLIA [id number] [address] [place] [address] [place] Glucose [Mass/Vol] 117 mg/dL High 74-99 [facility] Comment on above: Order Comment: Jcarlos sandhu Type: BLOOD SPECIMEN Ordering Facility: [facility] Address: [address] [place] [address] Result Comment: The [place] [employer] (ADA) provides guidance for cutoff [...] Standards of Medical Care in Diabetes 2016, [place] [employer]. Diabetes Care. 2016.39(Suppl 1). Performed By: #### 1 9123-9, 47349-2 #### [facility] CLIA [id number] [address] [place] [address] [place] Potassium [Moles/Vol] 3.6 mmol/L Low 3.7-5.1 [facility] Comment on above: Order Comment: Jcarlos sandhu Type: BLOOD SPECIMEN Ordering Facility: [facility] Address: [address] [place] [address] Performed By: #### 1 9123-9, 13062-1 #### [facility] CLIA [id number] [address] [place] [address] [place] Protein [Mass/Vol] 6.7 g/dL Normal 6.3-8.0 [facility] Comment on above: Order Comment: Jcarlos sandhu Type: BLOOD SPECIMEN Ordering Facility: [facility] Address: [address] [place] [address] Performed By: #### 1 9123-9, 87326-9 #### [facility] CLIA [id number] [address] [place] [address] [place] Sodium [Moles/Vol] 132 mmol/L Low 136-144 [facility] Comment on above: Order Comment: Speci men Type: BLOOD SPECIMEN Ordering Facility: [facility] Address: [address] [place] [address] Performed By: #### 1 9123-9, 28908-2 #### [facility] CLIA [id number] [address] [place] [address] [place] [facility] Urea nitrogen [Mass/Vol] 13 mg/dL Normal 7-21 [facility] Comment on above: Order Comment: Sarai men Type: BLOOD SPECIMEN Ordering Facility: [facility] Address: [address] [place] [address] Performed By: #### 1 9123-9, 73798-7 #### [facility] CLIA [id number] [address] [place] [address] [facility] ECG COMPLETEon 01-28-2025 ECG COMPLETE Ventricular Rate : 8 3 BPM QRS Duration : 90 ms Q-T Interval : 390 ms QTC Calculation(Bazett) : 458 ms Calculated R Brewster : 54 degrees Calculated T Brewster : 42 degrees ATRIAL FIBRILLATION WITH A COMPETING JUNCTIONAL PACEMAKER WITH PREMATURE VENTRICULAR OR ABERRANTLY CONDUCTED COMPLEXES ABNORMAL ECG WHEN COMPARED WITH ECG OF 22-Mar-2008 16:46, ATRIAL FIBRILLATION HAS REPLACED SINUS RHYTHM VENT. RATE HAS INCREASED by 36 bpm Confirmed by MD HUY, FAINA ([id number]) on 01/30/2025 1:19:03 AM NAME : WINIFRED VÁSQUEZ PID : [id number] : 1950 Gender : Female Race : ORD : [id number] Procedure Date : Jan 28 2025 11:17:20 Edit Date : Jan 30 2025 01:19:05 Diagnosis: ATRIAL FIBRILLATION WITH A COMPETING JUNCTIONAL PACEMAKER WITH PREMATURE VENTRICULAR OR ABERRANTLY CONDUCTED COMPLEXES ABNORMAL ECG WHEN COMPARED WITH ECG OF 22-Mar-2008 16:46, ATRIAL FIBRILLATION HAS REPLACED SINUS RHYTHM VENT. RATE HAS INCREASED by 36 bpm Confirmed by MD SON VINAYAK ([id number]) on 01/30/2025 1:19:03 AM Test Reason : Chest Pain Location : 191 : [facility] ED Overread By : MD SON VINAYAK Edited By : MD SON VINAYAK Referred By : , Acquired by : KRYSTAL BARNHART [facility] ED NOTEon 01-28-2025 ED NOTE HNO ID: [id number] Author: DANICA SIEGEL RN Service: Nursing Author Type: Registered Nurse Type: ED Notes Filed: 01/28/2025 13:36 Note Text: Pt verbalizes understanding of discharge instructions. Pt assisted out of ED in wheelchair [facility] ED NOTE HNO ID: [id number] Author: TD BAXTER RN Service: ? Author Type: Registered Nurse Type: ED Notes Filed: 01/28/2025 11:28 Note Text: Pt incont of light brown soft stool, pt was cleaned and new bedding placed [facility] ED NOTE HNO ID: [id number] Author: TD BAXTER RN Service: ? Author Type: Registered Nurse Type: ED Notes Filed: 01/28/2025 10:40 Note Text: Pt reports feeling more fatigued and weak for the past few days. Pt reports a productive cough. Pt denies urinary or gi symptoms. [facility] ED PROV NOTEon 01-28-2025 ED PROV NOTE HNO ID: [id number] Author: SUSAN CONNOLLY MD Service: Emergency Medicine [...] sensory de (more content not included)... Normal [facility] HIGH SENSITIVITY TROPONIN T (INITIAL)on 01-28-2025 Troponin T.cardiac High sensitivity method [Mass/Vol] 11 ng/L Normal <12 [facility] Comment on above: Order Comment: Speci men Type: BLOOD SPECIMENOrdering Facility: [facility] Address: [address] [place], [place] [address] Performed By: #### L [id number] ####[facility] [id number] [place] [address] [facility] HIGH SENSITIVITY TROPONIN T (SECOND)on 01-28-2025 Troponin T.cardiac High sensitivity method [Mass/Vol] 10 ng/L Normal <12 [facility] Comment on above: Order Comment: Speci men Type: BLOOD SPECIMEN Ordering Facility: [facility] Address: [address] [place] [address] Performed By: #### L [id number] #### [facility] CLIA [id number] [address] [place] [address] [facility] Magnesium SerPl-mCncon 01-28 Magnesium [Mass/Vol] 1.5 mg/dL Low 1.7-2.3 [facility] Comment on above: Order Comment: Speci men Type: BLOOD SPECIMEN Ordering Facility: [facility] Address: [address] [place] [address] Performed By: #### 1 9123-9, 32469-9 #### [facility] CLIA [id number] [address] [place] [address] [facility] Urinalysis complete panel (U )on 01-28-2025 Bacteria LM.HPF (Urine sed) [#/Area] Rare Abnormal None Seen [facility] Comment on above: Order Comment: Speci men Type: URINE SPECIMEN [facility]ing Facility[facility] Address: [address] [place] [address] Performed By: #### 2 4356-8 #### [facility] CLIA [id number] [address] [place] [address] [facility] Bilirubin Ql (U) Negative Normal Negative [facility] Comment on above: Order Comment: Speci men Type: URINE SPECIMEN [facility]ing [facility] Address: [address] [place] [address] Performed By: #### 2 4356-8 #### [facility] CLIA [id number] [address] [place] [address] [place] Clarity (Unsp spec) Clear Normal Clear [facility] Comment on above: Order Comment: Speci men Type: URINE SPECIMEN [facility]ing [facility] Address: [address] [place] [address] Performed By: #### 2 4356-8 #### [facility] CLIA [id number] [address] [place] [address] [facility] Color (U) Yellow Normal Yellow [facility] Comment on above: Order Comment: Speci men Type: URINE SPECIMEN [facility]ing [facility] Address: [address] [place] [address] Performed By: #### 2 4356-8 #### [facility] CLIA [id number] [address] [place] [id number] [facility] Epithelial cells LM.HPF (Urine sed) [#/Area] Few Normal [facility] Comment on above: Order Comment: Speci men Type: URINE SPECIMEN [facility]ing [facility] Address: [address] [place] [address] Performed By: #### 2 4356-8 #### [facility] CLIA [id number] [address] [place] [address] [facility] Glucose Test strip (U) [Mass/Vol] Negative Normal Negative [facility] Comment on above: Order Comment: Speci men Type: URINE SPECIMEN Ordering Facility[facility] Address: [address] [place] [address] Performed By: #### 2 4356-8 #### [facility] CLIA [id number] [address] [place] [address] [place] Hemoglobin Ql (U) Trace Abnormal Negative [facility] Comment on above: Order Comment: Speci men Type: URINE SPECIMEN [facility]ing [facility] Address: [address] [place] [address] Performed By: #### 2 4356-8 #### [facility] CLIA [id number] [address] [place] [address] [facility] Ketones Ql (U) 1+ Abnormal Negative [facility] Comment on above: Order Comment: Speci men Type: URINE SPECIMEN Ordering [facility] Address: [address] [place] [address] Performed By: #### 2 4356-8 #### [facility] CLIA [id number] [address] [place] [address] [facility] Leukocyte esterase Test strip Ql (U) Negative Normal Negative [facility] Comment on above: Order Comment: Speci men Type: URINE SPECIMEN [facility]ing [facility] Address: [address] [place] [address] Performed By: #### 2 4356-8 #### [facility] CLIA [id number] [address] Nitrite Ql (U) Negative Normal Negative [facility] Comment on above: Order Comment: Speci men Type: URINE SPECIMEN Ordering [facility] Address: [address] [place] [address] Performed By: #### 2 4356-8 #### [facility] CLIA [id number] [address] pH (U) 5.5 [pH] Normal 5.0-8.0 [facility] Comment on above: Order Comment: Speci men Type: URINE SPECIMEN Ordering [facility] Address: [address] [place] [address] Performed By: #### 2 4356-8 #### [facility] CLIA [id number] [address] [place] [address] [facility] Protein (U) [Mass/Vol] Negative Normal Negative [facility] Comment on above: Order Comment: Speci men Type: URINE SPECIMEN [facility] Address: [address] [place] [address] Performed By: #### 2 4356-8 #### [facility] CLIA [id number] [address] [place] [address] [place] RBC LM.HPF (Urine sed) [#/Area] 0-3 /HPF Normal 0-3 /HPF [facility] Comment on above: Order Comment: Speci men Type: URINE SPECIMEN [facility] Address: [address] [place] [address] Performed By: #### 2 4356-8 #### [facility] CLIA [id number] [address] [place] [address] [facility] Specific gravity (U) [Rel density] 1.020 Normal 1.005-1.03 0 [facility] Comment on above: Order Comment: Speci men Type: URINE SPECIMEN Order[facility] Address: [address] [place] [address] Performed By: #### 2 4356-8 #### [facility] CLIA [id number] [address] [place] [address] Urobilinogen Ql (U) 1.0 EU/dL Normal 0.2-1.0 EU/dL [facility] Comment on above: Order Comment: Speci men Type: URINE SPECIMEN Ordering [facility] Address: [address] [place] [address] Performed By: #### 2 4356-8 #### [facility] CLIA [id number] [address] [place] [address] WBC LM.HPF (Urine sed) [#/Area] 0-5 /HPF Normal 0-5 /HPF [facility] Comment on above: Order Comment: Speci men Type: URINE SPECIMEN [facility] Address: [address] [place] [address] Performed By: #### 2 4356-8 #### [facility] CLIA [id number] [address] OF [facility] XR CHEST 2V FRONTAL/LATon XR CHEST 2V [...] tissues: Unremarkable. IMPRESSION: No acute radiographic abnormality. Community Manager: PSCB Transcribe Date/Time: Jan 28 2025 11:37A Dictated by : TOBI PORTILLO MD This examination was interpreted and the report reviewed and electronically signed by: TOBI PORTILLO MD on Jan 28 2025 11:39AM EST [id number] Normal [facility] 12 Lead EKG performed by [facility] on 12-09-2024 12 Lead EKG performed by [address] [address] 12 Lead EKG performed by [facility] 12/09/24 1549 MR#: [id number] Acct: [id number] Name: WINIFRED VÁSQUEZ Rep #: [id number] : 1950 74 From: Stewart Newman MD Attending Dr: Dr. Stewart Newman MD Status: DEP A MB Ordering Dr: Stewart Newman MD Date: 12/09/24 [place] [facility] F C Admitted: [facility]/12 Lead EKG performed by [facility] ECG Report Interpretation A trial fibrillation -Frequent pvcs -ventricular trigeminy - Nonspecific T-abnormality. ABNORMALNo significant Changes Compared to 10/01/2024 ECG Electronically signed on 12/13/2024 at 09:[address] Elijah Moran Software Version 8610 12/13/24 0952 Date Stewart Newman MD CC: [facility] SANDING MACHINE TENDER-C Lucitafabiola Agarwal Date Dictated: 12/09/24 1549 Date Transcribed: 12/09/241548 Community Manager: [place] Signed Normal [facility] Cardiology Visit Reporton Cardiology Visit Report [facility] [address] [place] [address] OFFICE VISIT Date of Service: 12/09/24 MR#: [id number] Acct: [id number] Name: WINIFRED VÁSQUEZ Rep #: [id number] : 1950 Provider: Dr. Stewart Newman MD Age/Sex: 74/F Location: [facility] Status: Signed HPI HPI History of Present [...] NIBP Intake Visit Reasons: 1 Y FU Tubing Drier Required: No Is patient in pain?: No [...] you fallen in the past year?: No [facility] History Wears glasses Cancer Diabetes Arthritis High cholesterol Non-smoker CPAP (continuous positive airway pressure) dependence Sleep apnea Shortness of breath on exertion History of edema His (more content not included)... Normal [facility] Gastric Emptying Studyon Gastric Emptying Study [facility] Imaging Services [address] [place] [address] Gastric Emptying Study MR#: [id number] Acct: [id number] Name: WINIFRED VÁSQUEZ Rep #: [id number] : 1950 F 73 From: Chris Malin MD PCP: KRYSTIAN Ledesma, SANDING MACHINE TENDER-C Status: REG CLI Study: Gastric Emptying Study Date of Exam: 12/02/24 Exam# [id number] Ordering Dr: Susanna Weathers PROCEDURE: GASTRIC EMPTYING [...] of gastroesophageal reflux. Reading Location: THOR CC: [facility] SANDING MACHINE TENDER-C Lucita Agarwal; EMA Carrero Community Manager: Signed [facility] L3410.9999on 11-15-2024 [facility] Mis. [facility] Comment on above: Order Comment: [id number] PROFILE PLUS Result Comment: TEST RESULTS [...] with Sjogren's Syndrome and may occur in Xrxs-Hx-nuxrewzn Sjogren's (Dean T et al. J Rheumatol 2003;30:8185-1891). TEST[facility]FOR[facility] AT [facility]. ORIGINAL REPORT ON FILE IN LAB CONTAINS ADDITIONAL TEST SITE INFORMATION. Performed By: #### L 3410.9999 ####[facility] [address] [place], [address] Gastroenterology Visit Repor ton 11-11-2024 Gastroenterology Visit Report [facility] Gastroenterology [address] [place] [address] OFFICE VISIT Date of Service: 11/11/24 MR#: [id number] Acct: [id number] Name: WINIFRED VÁSQUEZ Rep #: [id number] : 1950 Provider: EMA Carrero Age/Sex: 73/F Location: [facility] Status: Signed Intake Vital Signs 09/28/24 15:16 [...] swallowing. Pt takes omeprazole daily. Denies vomiting. [facility] Medical History Wears glasses Cancer Diabetes Arthritis [...] use type: does not use caffeine: No emanuel/druze: Mormon seatbelt use: always do you feel safe at home: Yes HPI HPI Chief Complaint: dysphagia Details: WINIFRED VÁSQUEZ, is a 73 F who presents to the office today for establishment with [facility]. Pt has had a year of difficulty [...] restless legs (more content not included)... Normal [facility] GARFIELD Comprehensive Panelon GARFIELD TABLE Comment Normal . [facility] Comment on above: Result Comment: Auto [...] Sm (anti-Ziegler) SLE 15 - 30% --------- ENERGY SYSTEMS ENGINEER Mixed Connective Tissue Disease 95% (U1 nRNP, SLE 30 - 50% anti-ribonucleoprotein) Polymyositis and/or Dermatomyositis 20% --------- Scl-70 (antiDNA Scleroderma (diffuse) 20 - 35% topoisomerase) Crest 13% --------- Ysabel-1 Polymyositis and/or Dermatomyositis 20 - 40% --------- Centromere B Scleroderma - Crest variant 80% Performed at: - Lab[address] [id number] [employer] Sales Consultant: Claude Jay PhD, Phone: [phone] Performed By: #### L 0444.7325, D240.3744, L100.3240, L500.9156 #### [facility] [address] [place], [place] [address], [address] Absolute neutrophil countOrd ered By: [facility] Lucita Agarwal on 11-03-2024 Neutrophils (Bld) [#/Vol] 3.9 10*3/uL 2.0-7.7 [facility] Albumin to globulin ratioOrd ered By: [facility] on 11-03-2024 Albumin/Globulin [Mass ratio] 0.9 {ratio} 0.9-2.4 [facility] Basophil percentageOrdered B y: [facility] on 11-03-2024 Basophils/100 WBC (Bld) 0.5 % 0-1 [facility] Bilirubin, totalOrdered By: [facility] on 11-03-2024 Bilirubin [Mass/Vol] 1.30 mg/dL High 0.20-1.00 [facility] Comment on above: For patients on eltr ombopag therapy, use of Dimension [place] TBIL is not recommended. Blood urea nitrogen (BUN)/cr eatinine ratioOrdered By: [facility] on 11-03-2024 Urea nitrogen/Creatinine [Mass ratio] 25.8 mg/mg High 10-20 [facility] CBC W/Diff, Automatedon Absolute Lymph 2.76 X10 3/uL Normal 0.83-4.51 [facility] Comment on above: Performed By: #### L 3100.5440, L500.4100, L100.0100, L500.4050 #### [facility] [address] [place], [address] Absolute Neut 3.9 X10 3/uL Normal 2.0-7.7 [facility] Comment on above: Performed By: #### L 3100.5440, L500.4100, L100.0100, L500.4050 #### [facility] [address] [place], [address] Basophils/100 WBC (Bld) 0.5 % Normal 0-1 [facility] Comment on above: Performed By: #### L 3100.5440, L500.4100, L100.0100, L500.4050 #### [facility] [address] [place], [address] Eosinophils/100 WBC (Bld) 4.3 % Normal 0-5 [facility] Comment on above: Performed By: #### L 3100.5440, L500.4100, L100.0100, L500.4050 #### [facility] [address] [place], [address] Erythrocyte distribution width (RBC) [Ratio] 13.4 % Normal 11.6-14.6 [facility] Comment on above: Performed By: #### L 3100.5440, L500.4100, L100.0100, L500.4050 #### [facility] [address] [place], [address] Hematocrit (Bld) [Volume fraction] 40.9 % Normal 37-47 [facility] Comment on above: Performed By: #### L 3100.5440, L500.4100, L100.0100, L500.4050 #### [facility] [address] [place], [address] Hemoglobin (Bld) [Mass/Vol] 13.9 g/dL Normal 12.0-15.0 [facility] Comment on above: Performed By: #### L 3100.5440, L500.4100, L100.0100, L500.4050 #### [facility] [address] [place], [address] IG% 0.400 Normal 0.0-0.9 [facility] Comment on above: Result Comment: IG% - Immature Granulocytes (promyelocytes, myelocytes and metamyelocytes) > 1% indicates that a LEFT SHIFT is Present. Performed By: #### L 3100.5440, L500.4100, L100.0100, L500.4050 #### [facility] [address] [place], [address] Lymphocytes/100 WBC (Bld) 36.3 % Normal 19-41 [facility] Comment on above: Performed By: #### L 3100.5440, L500.4100, L100.0100, L500.4050 #### [facility] [address] [place], [address] MCH (RBC) [Entitic mass] 30.0 pg Normal 27.0-32.0 [facility] Comment on above: Performed By: #### L 3100.5440, L500.4100, L100.0100, L500.4050 #### [facility] [address] [place], [address] MCHC (RBC) [Mass/Vol] 34.0 g/dL Normal 32-36 [facility] Comment on above: Performed By: #### L 3100.5440, L500.4100, L100.0100, L500.4050 #### [facility] [address] [place], [address] MCV (RBC) [Entitic vol] 88.1 fL Normal 81-99 [facility] Comment on above: Performed By: #### L 3100.5440, L500.4100, L100.0100, L500.4050 #### [facility] [address] [place], [address] Monocytes/100 WBC (Bld) 7.5 % Normal 0-10 [facility] Comment on above: Performed By: #### L 3100.5440, L500.4100, L100.0100, L500.4050 #### [facility] [address] [place], [address] Neutrophils/100 WBC (Bld) 51.0 % Normal 47-70 [facility] Comment on above: Performed By: #### L 3100.5440, L500.4100, L100.0100, L500.4050 #### [facility] [address] [place], [address] Nucleated RBC (Bld) [#/Vol] 0 10*3/uL Normal 0-5 [facility] Comment on above: Performed By: #### L 3100.5440, L500.4100, L100.0100, L500.4050 #### [facility] [address] [place], [address] Platelet mean volume (Bld) [Entitic vol] 10.8 fL Normal 6.2-12.0 [facility] Comment on above: Performed By: #### L 3100.5440, L500.4100, L100.0100, L500.4050 #### [facility] [address] [place], [address] Platelets (Bld) [#/Vol] 161 10*3/uL Normal 150-450 [facility] Comment on above: Performed By: #### L 3100.5440, L500.4100, L100.0100, L500.4050 #### [facility] [address] [place], [address] RBC (Bld) [#/Vol] 4.64 10*6/uL Normal 4.2-5.4 [facility] Comment on above: Performed By: #### L 3100.5440, L500.4100, L100.0100, L500.4050 #### [facility] [address] [place], [address] RDW SD 43.2 fl Normal 35.1-43.9 [facility] Comment on above: Performed By: #### L 3100.5440, L500.4100, L100.0100, L500.4050 #### [facility] [address] [place], [address] WBC (Bld) [#/Vol] 7.6 10*3/uL Normal 4.4-11.0 [facility] Comment on above: Performed By: #### L 3100.5440, L500.4100, L100.0100, L500.4050 #### [facility] [address] [place], [place], [address] Carbon dioxide measurementOr dered By: [facility] Lucita Agarwal on 11-03-2024 CO2 [Moles/Vol] 26.0 mmol/L 21.0-32.0 [facility] Centromere B antibody assayO rdered By: [facility] Lucita Agarwal on 11-03-2024 Centromere B Antibody <0.2 AI 0.0-0.9 [facility] Comment on above: Previous reported re sult: TNP AIEdited by: RIAZ on 11/04/24:1008 AMENDED REPORT 11/04/24 1008 ANTI-CENT B previously reported as: Test not performed Chloride measurementOrdered By: [facility] Lucita Agarwal on 11-03-2024 Chloride [Moles/Vol] 105 mmol/L 98-107 [facility] Chromatin antibody assayOrde red By: [facility] Lucita Agarwal on 11-03-2024 Antichromatin Antibodies <0.2 AI 0.0-0.9 [facility] Comment on above: Previous reported re sult: TNP AIEdited by: RIAZ on 11/04/24:1008 AMENDED REPORT 11/04/24 1008 ANTICHROMATIN previously reported as: Test not performed Comprehensive Metabolic Prof ilon 11-03-2024 Albumin [Mass/Vol] 3.5 g/dL Normal 3.2-5.0 [facility] Comment on above: Performed By: #### L 3100.5440, L500.4100, L100.0100, L500.4050 ####[facility] [address] [place], [place], [address] Albumin/Globulin [Mass ratio] 0.9 {ratio} Normal 0.9-2.4 [facility] Comment on above: Performed By: #### L 3100.5440, L500.4100, L100.0100, L500.4050 ####[facility] [address] [place], [address] ALK P 87 U/L Normal 45-117 [facility] Comment on above: Performed By: #### L 3100.5440, L500.4100, L100.0100, L500.4050 ####[facility] [address] [place], [address] ALT [Catalytic activity/Vol] 18 U/L Normal 13-56 [facility] Comment on above: Performed By: #### L 3100.5440, L500.4100, L100.0100, L500.4050 ####[facility] [address] [place], [address] AST [Catalytic activity/Vol] 21 U/L Normal 15-37 [facility] Comment on above: Performed By: #### L 3100.5440, L500.4100, L100.0100, L500.4050 ####[facility] [address] [place], [address] Bilirubin [Mass/Vol] 1.30 mg/dL High 0.20-1.00 [facility] Comment on above: Result Comment: For patients on eltrombopag therapy, use of Dimension [place] TBIL is not recommended. Performed By: #### L 3100.5440, L500.4100, L100.0100, L500.4050 ####[facility] [address] [place], [address] BUN/CRE 25.8 RATIO High 10-20 [facility] Comment on above: Performed By: #### L 3100.5440, L500.4100, L100.0100, L500.4050 ####[facility] [address] [place], [address] CA,Total 9.3 mg/dL Normal 8.5-10.1 [facility] Comment on above: Performed By: #### L 3100.5440, L500.4100, L100.0100, L500.4050 ####[facility] [address] [place], [address] Chloride [Moles/Vol] 105 mmol/L Normal 98-107 [facility] Comment on above: Performed By: #### L 3100.5440, L500.4100, L100.0100, L500.4050 ####[facility] [address] [place], [address] CO2 [Moles/Vol] 26.0 mmol/L Normal 21.0-32.0 [facility] Comment on above: Performed By: #### L 3100.5440, L500.4100, L100.0100, L500.4050 ####[facility] [address] [place], [address] Creatinine [Mass/Vol] 0.70 mg/dL Normal 0.55-1.02 [facility] Comment on above: Result Comment: The validity of the calculated GFR GFRAA in patients over 70 years has not been determined. Clinical correlation is essential. Performed By: #### L 3100.5440, L500.4100, L100.0100, L500.4050 ####[facility] [address] [place], [address] EST GFR - AA 105 mL/min Normal >60 [facility] Comment on above: Result Comment: Afri can [place] GFR Calc Performed By: #### L 3100.5440, L500.4100, L100.0100, L500.4050 ####[facility] [address] [place], [address] GAP 8 Normal 5-15 [facility] Comment on above: Performed By: #### L 3100.5440, L500.4100, L100.0100, L500.4050 ####[facility] [address] [place], [address] GFR/1.73 sq M.predicted among non-blacks MDRD (S/P/Bld) [Vol rate/Area] 87 mL/min/{1.73_m2} Normal >60 [facility] Comment on above: Result Comment: Non- GFR Calc Performed By: #### L 3100.5440, L500.4100, L100.0100, L500.4050 ####[facility] [address] [place], [address] Globulin (S) [Mass/Vol] 3.8 g/dL Normal 2.2-4.2 [facility] Comment on above: Performed By: #### L 3100.5440, L500.4100, L100.0100, L500.4050 ####[facility] [address] [place], [address] Glucose [Mass/Vol] 105 mg/dL Normal 74-106 [facility] Comment on above: Result Comment: Fast ing Glucose result from 100 to 125 mg/dL suggests IMPAIRED HOMEOSTASIS per A.D.A. criteria. Performed By: #### L 3100.5440, L500.4100, L100.0100, L500.4050 ####[facility] [address] [place], [address] Potassium [Moles/Vol] 3.8 mmol/L Normal 3.5-5.1 [facility] Comment on above: Performed By: #### L 3100.5440, L500.4100, L100.0100, L500.4050 ####[facility] [address] [place], [address] Sodium [Moles/Vol] 139 mmol/L Normal 136-145 [facility] Comment on above: Performed By: #### L 3100.5440, L500.4100, L100.0100, L500.4050 ####[facility] [address] [place], [address] T PROT 7.3 g/dL Normal 6.4-8.2 [facility] Comment on above: Performed By: #### L 3100.5440, L500.4100, L100.0100, L500.4050 ####[facility] [address] [place], [address] Urea nitrogen [Mass/Vol] 18 mg/dL Normal 7-18 [facility] Comment on above: Performed By: #### L 3100.5440, L500.4100, L100.0100, L500.4050 ####[facility] [address] [place], [address] DNA double strand Ab Qn (S)O rdered By: [facility] Lucita Agarwal on 11-03-2024 Anti-Double Strand DNA Antibody 1 IU/mL 0-9 [facility] Comment on above: Negative <5 Equivoca l 5 - 9 Positive >9Previous reported result: TNP IU/mLEdited by: RIAZ on 11/04/24:1008 AMENDED REPORT 11/04/24 1008 dsDNA AB previously reported as: Test not performed Eosinophil percentageOrdered By: [facility] Lucita Agarwal on 11-03-2024 Eosinophils/100 WBC (Bld) 4.3 % 0-5 [facility] Erythrocyte distribution wid th ratioOrdered By: [facility] Lucita Agarwal on 11-03-2024 Erythrocyte distribution width (RBC) [Ratio] 13.4 % 11.6-14.6 [facility] Erythrocyte distribution wid th standard deviationOrdered By: [facility] Lucita Agarwal on 11-03-2024 Erythrocyte distribution width (RBC) [Entitic vol] 43.2 fL 35.1-43.9 [facility] Estimated glomerular filtrat ion rate (GFR) AmericanOrdered By: [facility] Lucita Agarwal on 11-03-2024 Estimated GFR (MDRD) Amer 105 mL/min >60 [facility] Comment on above: GFR Calc Glomerular filtration rate ( GFR) estimationOrdered By: [facility] Lucita Agarwal on 11-03-2024 Estimated GFR (MDRD) Non-Af Amer 87 mL/min >60 [facility] Comment on above: Non- GFR Calc Glucose measurementOrdered B y: [facility] Lucita Stefano on 11-03-2024 Glucose [Mass/Vol] 105 mg/dL 74-106 [facility] Comment on above: Fasting Glucose resu lt from 100 to 125 mg/dL suggests IMPAIRED HOMEOSTASIS per A.D.A. criteria. Hematocrit Auto (Bld) [Volum e fraction]Ordered By: [facility] Lucita Stefano on 11-03-2024 Hematocrit (Bld) [Volume fraction] 40.9 % 37-47 [facility] Hemoglobin measurementOrdere d By: [facility] Lucita Stfeano on 11-03-2024 Hemoglobin (Bld) [Mass/Vol] 13.9 g/dL 12.0-15.0 [facility] High density lipoprotein (HD L) measurementOrdered By: [facility] Lucita Stefano on 11-03-2024 Cholesterol in HDL [Mass/Vol] 44 mg/dL >40 [facility] Comment on above: The drugs N-Acetylcy steine and Metamizole may falsely depress this assay. Reference Range HDL <40 mg/dL Low HDL Cholesterol HDL >or= 60 mg/dL High HDL Cholesterol Immature granulocytes/100 WB C Auto (Bld)Ordered By: [facility] Lucita Stefano on 11-03-2024 Immature granulocytes/100 WBC (Bld) 0.400 % 0.0-0.9 [facility] Comment on above: IG% - Immature Granu locytes (promyelocytes, myelocytes and metamyelocytes) > 1% indicates that a LEFT SHIFT is Present. Ysabel-1 antibody assayOrdered B y: [facility] Lucita Stefano on 11-03-2024 YSABEL-1 Antibody <0.2 AI 0.0-0.9 [facility] Comment on above: Previous reported re sult: TNP AIEdited by: RIAZ on 11/04/24:1008 AMENDED REPORT 11/04/24 1008 ANTI-YSABEL previously reported as: Test not performed Laboratory - Chemistry and C hemistry - challengeOrdered By: [facility] Lucita Agarwal on 11-03-2024 AST [Catalytic activity/Vol] 21 U/L 15-37 [facility] Lipid Profileon 11-03-2024 Cholesterol [Mass/Vol] 150 mg/dL Normal 200 [facility] Comment on above: Result Comment: <200 mg/dL Desirable 200-240 mg/dL Borderline >240 mg/dL High Risk Performed By: #### L 3100.5440, L500.4100, L100.0100, L500.4050 ####[facility] [address] [place], [address] Cholesterol in HDL [Mass/Vol] 44 mg/dL Normal [facility] Comment on above: Result Comment: The drugs N-Acetylcysteine and Metamizole may falsely depress this assay. Reference Range HDL <40 mg/dL Low HDL Cholesterol HDL >or= 60 mg/dL High HDL Cholesterol Performed By: #### L 3100.5440, L500.4100, L100.0100, L500.4050 ####[facility] [address] [place], [address] Cholesterol in LDL [Mass/Vol] 82 mg/dL Normal 0-130 [facility] Comment on above: Performed By: #### L 3100.5440, L500.4100, L100.0100, L500.4050 ####[facility] [address] [place], [address] Cholesterol in VLDL [Mass/Vol] 24 mg/dL Normal 5-40 [facility] Comment on above: Performed By: #### L 3100.5440, L500.4100, L100.0100, L500.4050 ####[facility] [address] [place], [address] Triglyceride [Mass/Vol] 118 mg/dL Normal [facility] Comment on above: Result Comment: The drugs N-Acetylcysteine and Metamizole may falsely depress this assay. Serum Triglycerides Reference Interval Normal <150 mg/dL Borderline high 150 - 199 mg/dL High 200 - 499 mg/dL Very High > or = 500 mg/dL Performed By: #### L 3100.5440, L500.4100, L100.0100, L500.4050 ####[facility] [address] [place], [address] Low density lipoprotein (LDL ) cholesterol measurementOrdered By: [facility] Lucita Agarwal on 11-03-2024 Cholesterol in LDL [Mass/Vol] 82 mg/dL 0-130 [facility] Lymphocytes Auto (Unsp spec) [#/Vol]Ordered By: [facility] Lucita Agarwal on 11-03-2024 Lymphocytes (Bld) [#/Vol] 2.76 10*3/uL 0.83-4.51 [facility] Lymphocytes/100 WBC Auto (Un sp spec)Ordered By: [facility] Lucita Agarwal on 11-03-2024 Lymphocytes/100 WBC (Bld) 36.3 % 19-41 [facility] MCV (mean corpuscular volume ) determinationOrdered By: [facility] Lucita Agarwal on 11-03-2024 MCV (RBC) [Entitic vol] 88.1 fL 81-99 [facility] Mean corpuscular hemoglobin (MCH) determinationOrdered By: [facility] Lucita Agarwal on 11-03-2024 MCH (RBC) [Entitic mass] 30.0 pg 27.0-32.0 [facility] Mean corpuscular hemoglobin concentration (MCHC) determinationOrdered By: [facility] Lucita Agarwal on 11-03-2024 MCHC (RBC) [Mass/Vol] 34.0 g/dL 32-36 [facility] Mean platelet volume determi nationOrdered By: [facility] Lucita Agarwal on 11-03-2024 Platelet mean volume (Bld) [Entitic vol] 10.8 fL 6.2-12.0 [facility] Monocyte percentageOrdered B y: [facility] Lucita Agarwal on 11-03-2024 Monocytes/100 WBC (Bld) 7.5 % 0-10 [facility] Neutrophil percentageOrdered By: [facility] Lucita Agarwal on 11-03-2024 Neutrophils/100 WBC (Bld) 51.0 % 47-70 [facility] No Panel InformationOrdered By: [facility] Lucita Agarwal on 11-03-2024 Miscellaneous Test See comment [facility] Comment on above: TEST RESULTS LIMITSS jogren's [...] with Sjogren's Syndrome and may occur in Wohv-Dl-uklhgqdk Sjogren's (Dean T et al. J Rheumatol 2003;30:6319-5928). TESTING PERFORMED AT [facility]. ORIGINAL REPORT ON FILE IN LAB CONTAINS ADDITIONAL TEST SITE INFORMATION. Nucleated red blood cell per centageOrdered By: KRYSTIAN Agarwal on 11-03-2024 Nucleated RBC/100 WBC (Bld) [Ratio] 0 % 0-5 [facility] Platelet countOrdered By: MAU Agarwal on 11-03-2024 Platelets (Bld) [#/Vol] 161 10*3/uL 150-450 [facility] Potassium measurementOrdered By: KRYSTIAN Agarwal on 11-03-2024 Potassium [Moles/Vol] 3.8 mmol/L 3.5-5.1 [facility] RBC Auto (Bld) [#/Vol]Ordere d By: [facility] Lucita Agarwal on 11-03-2024 RBC (Bld) [#/Vol] 4.64 10*6/uL 4.2-5.4 [facility] ENERGY SYSTEMS ENGINEER abOrdered By: [facility] Jose David Agarwal on 11-03-2024 ENERGY SYSTEMS ENGINEER Antibody <0.2 AI 0.0-0.9 [facility] Comment on above: Previous reported re sult: TNP AIEdited by: RIAZ on 11/04/24:1008 AMENDED REPORT 11/04/24 1008 ENERGY SYSTEMS ENGINEER Ab previously reported as: Test not performed SCL-70 extractable nuclear A b Qn (S)Ordered By: [facility] Lucita Agarwal on 11-03-2024 Scl-70 (Scleroderma) Antibody <0.2 AI 0.0-0.9 [facility] Comment on above: Previous reported re sult: TNP AIEdited by: RIAZ on 11/04/24:1008 AMENDED REPORT 11/04/24 1008 ANTISCLER previously reported as: Test not performed SS-A IgG antibody assayOrder ed By: [facility] Lucita Agarwal on 11-03-2024 SS-A/Ro IgG Antibody < 0.2 AI 0.0-0.9 [facility] Comment on above: Previous reported re sult: TNP AIEdited by: RIAZ on 11/04/24:1008 AMENDED REPORT 11/04/24 1008 Anti-SS-A previously reported as: Test not performed SS-B IgG antibody assayOrder ed By: [facility] Lucita Agarwal on 11-03-2024 SS-B/La IgG Antibody < 0.2 AI 0.0-0.9 [facility] Comment on above: Previous reported re sult: TNP AIEdited by: RIAZ on 11/04/24:1008 AMENDED REPORT 11/04/24 1008 Anti-SS-B previously reported as: Test not performed Serum anion gap measurementO rdered By: [facility] Lucita Agarwal on 11-03-2024 Anion gap [Moles/Vol] 8 mmol/L 5-15 [facility] Serum globulin measurementOr dered By: [facility] Lucita Agarwal on 11-03-2024 Globulin (S) [Mass/Vol] 3.8 g/dL 2.2-4.2 [facility] Serum or plasma alanine campbell otransferase (ALT) measurementOrdered By: [facility] on 11-03-2024 ALT [Catalytic activity/Vol] 18 U/L 13-56 [facility] Serum or plasma albumin jackie urement (mass/volume)Ordered By: [facility] on 11-03-2024 Albumin [Mass/Vol] 3.5 g/dL 3.2-5.0 [facility] Serum or plasma alkaline clemente sphatase measurementOrdered By: [facility] Stefano on 11-03-2024 ALP [Catalytic activity/Vol] 87 U/L 45-117 [facility] Serum or plasma calcium jackie urement (mass/volume)Ordered By: [facility] on 11-03-2024 Calcium [Mass/Vol] 9.3 mg/dL 8.5-10.1 [facility] Serum or plasma cholesterol measurement (mass/volume)Ordered By: [facility] on 11-03-2024 Cholesterol [Mass/Vol] 150 mg/dL <200 [facility] Comment on above: <200 mg/dL Desirable 200-240 mg/dL Borderline >240 mg/dL High Risk Serum or plasma creatinine m easurement (mass/volume)Ordered By: [facility] on 11-03-2024 Creatinine [Mass/Vol] 0.70 mg/dL 0.55-1.02 [facility] Comment on above: The validity of the calculated GFR & GFRAA in patients over 70 years has not been determined. Clinical correlation is essential. Serum or plasma urea nitroge n measurement (mass/volume)Ordered By: [facility] on 11-03-2024 Urea nitrogen [Mass/Vol] 18 mg/dL 7-18 [facility] Ziegler antibody assayOrdered By: [facility] Stefano on 11-03-2024 SM Antibody <0.2 AI 0.0-0.9 [facility] Comment on above: Previous reported re sult: TNP AIEdited by: RIAZ on 11/04/24:1008 AMENDED REPORT 11/04/24 1008 ZIEGLER Ab previously reported as: Test not performed Sodium levelOrdered By: [facility] Lucita Agarwal on 11-03-2024 Sodium [Moles/Vol] 139 mmol/L 136-145 [facility] Total proteinOrdered By: [facility] Lucita Agarwal on 11-03-2024 Protein [Mass/Vol] 7.3 g/dL 6.4-8.2 [facility] Triglycerides measurementOrd ered By: [facility] Lucita Agarwal on 11-03-2024 Triglyceride [Mass/Vol] 118 mg/dL <199 [facility] Comment on above: The drugs N-Acetylcy steine and Metamizole may falsely depress this assay.Serum Triglycerides Reference Interval Normal <150 mg/dL Borderline high 150 - 199 mg/dL High 200 - 499 mg/dL Very High > or = 500 mg/dL Very low density lipoprotein (VLDL) cholesterol measurementOrdered By: [facility] Lucita Agarwal on 11-03-2024 VLDL Cholesterol 24 mg/dL 5-40 [facility] White blood cell (WBC) count Ordered By: [facility] Lucita Agarwal on 11-03-2024 WBC (Bld) [#/Vol] 7.6 10*3/uL 4.4-11.0 [facility] 12 Lead EKG performed by [facility] on 09-28-2024 12 Lead EKG performed by [facility] [address] [place] [address] 12 Lead EKG performed by [facility] 09/28/24 1516 MR#: [id number] Acct: [id number] Name: WINIFRED VÁSQUEZ Rep #: [id number] : 1950 73 From: Rhett Perry SANDING MACHINE TENDER SANDING MACHINE TENDER-C Attending Dr: Rhett Perry NP-C Status: DEP AMB Ordering Dr: Rhett Perry SANDING MACHINE TENDER SANDING MACHINE TENDER-C Date: 09/28/24 [place] [facility] [place] F C Admitted: [facility]/12 Lead EKG performed by [facility] ECG Report Interpretation atrial fibrillation -Nonspecific ST depression -Nondiagnostic. ABNORMAL Electronically signed on 10/01/2024 at 16:39 by Stewrat Newman Software Version 8610 10/01/24 1643 Date Rhett BREWER CC: KRYSTIAN Agarwal Date Dictated: 09/28/241515 Date Transcribed: 09/28/241515 Community Manager: CHAPARRITA Signed Normal [facility] Cardiology Visit Reporton Cardiology Visit Report [facility] [address] [place] [address] OFFICE VISIT Date of Service: 09/28/24 MR#: [id number] Acct: [id number] Name: WINIFRED VÁSQUEZ Rep #: [id number] : 1950 Provider: OSMAN robbins Age/Sex: 73/F Location: [facility] Status: Signed HPI HPI History of Present [...] Intake Visit Reasons: AFIB/ See Clinical Note Tubing Drier Required: No Is patient in pain?: No [...] of e (more content not included)... Normal [facility] 12 Lead EKGon 09-21-2024 12 Lead EKG [facility] [address] [place] [address] 12 Lead EKG 09/21/24 0727 MR#: [id number] Acct: [id number] Name: WINIFRED VÁSQUEZ Rep #: [id number] : 1950 73 From: Elijah Gold MD [...] Inferior leads Confirmed by Elijah Gold ([id number]), material expeditor LISSET PALMA ([id number]) on 09/22/2024 2:16:14 PM Referred By: Lucita Agarwal Confirmed By: Elijah Gold 09/22/24 1416 Date Elijah Gold MD CC: Katerin SANDING MACHINE TENDER-C Lucita Agarwal; Dr. Eder Castano MD; Dr. Eduar Turcios MD Signed Normal [facility] Bedside Glucoseon 09-21-2024 FINGERSTICK GLU 116 mg/dL High 74-106 [facility] Comment on above: Result Comment: PARRISH LOPEZ OF PATIENT CARE PER NURSING PROTOCOL Performed By: #### L 501.080 ####[facility] [address] [facility] [place], [place], [address] Colonoscopy Reporton 024 Colonoscopy Report [facility] Medical Records Department [address] [place] [address] Colonoscopy Report MR#: [id number] Acct: [id number] Name: WINIFRED VÁSQUEZ Rep #: [id number] : 1950 73 From: Eder Castano MD PCP: KRYSTIAN Ledesma, SANDING MACHINE TENDER-C Status:[facility] Patient Name: Winifred Vásquez Procedure Date: 09/21/2024 8:49 AM Date of : 1950 Age: 73 Procedure: Colonoscopy Indications: Family history of colon cancer in multiple first-degree relatives Providers: Eder Castano MD Referring MD: Lucita Agarwal [facility], Motor Equipment Sergeant-c Medicines: Propofol per Anesthesia Patient Profile: This [...] to age. Procedure Code(s): --- Professional --- 62330, Colonoscopy, flexible; diagnostic, including collection of specimen(s) by brushing or washing, when performed (separate procedure) Diagnosis Code(s): --- Professional --- Z80.0, Family history of malignant neoplasm of digestive organs CPT copyright 2021 [employer]. All rights reserved. The codes documented in this report are preliminary and upon nut orchardist review may be revised to meet current compliance requirements. Eder Castano MD 09/21/2024 9:11:25 AM This report has been signed electronically. Number of Addenda: 0 Note Initiated On: 09/21/2024 8:49 AM 09/21/24 0911 Date Eder Castano MD Cosigner Signature: Date (if indicated) CC: KRYSTIAN SANDING MACHINE TENDER-C Lucita Agarwal; Dr. Eder Castano MD Date Dictated: 09/21/24 0849 Date Transcribed: Community Manager: ROGELIO Signed Normal [facility] EGD Reporton 09-21-2024 EGD Report [facility] Medical Records Department [address] [place] [address] EGD Report MR#: [id number] Acct: [id number] Name: WINIFRED VÁSQUEZ Rep #: [id number] : 1950 73 From: Eder Castano MD PCP: KRYSTIAN Ledesma, NIESHAC Status:[facility] Patient Name: Winifred Vásquez Procedure Date: 09/21/2024 8:38 AM Date of : 1950 Age: 73 Procedure: Upper GI endoscopy Indications: Dysphagia Providers: Eder Castano MD Referring MD: Lucita Choudhury, Motor Equipment Sergeant-c Medicines: Propofol per Anesthesia Patient Profile: This [...] present medications. Procedure Code(s): --- Professional --- 27302, Esophagogastroduodenoscopy, flexible, transoral; diagnostic, including collection of specimen(s) by brushing or washing, when performed (separate procedure) Diagnosis Code(s): --- Professional --- R13.10, Dysphagia, unspecified CPT copyright 2021 [employer]. All rights reserved. The codes documented in this report are preliminary and upon nut orchardist review may be revised to meet current compliance requirements. Eder Castano MD 09/21/2024 9:09:41 AM This report has been signed electronically. Number of Addenda: 0 Note Initiated On: 09/21/2024 8:38 AM 09/21/24 0909 Date Eder Castano MD Cosigner Signature: Date (if indicated) CC: [facility] SANDING MACHINE TENDER-C Lucita Agarwal; Dr. Eder Castano MD Date Dictated: 09/21/24 0838 Date Transcribed: Community Manager: AC Signed Normal [facility] at [facility] deOrdered By: Eder Castano on 09-21-2024 Bedside Glucose (Misc Panel) 116 mg/dL High 74-106 [facility] Comment on above: MANAGEMENT OF PATIEN T CARE PER NURSING PROTOCOL MR/POSTOP.ANEon 09-21-2024 MR/POSTOP.ANE [facility] Medical Records Department [address] [place] [address] Anesthesia Postop Eval I 09/21/24916 MR#: [id number] Acct: [id number] Name: WINIFRED VÁSQUEZ Dolores Rep #: [id number] : 1950 73 From: Jayden Garvey PCP: KRYSTIAN Ledesma, SANDING MACHINE TENDER-C Status:REG SDC Y Race: C Location: [place] [address] Anesthesia: Postop Eval I Current Vital Signs [...] Jayden Zuniga Signature: Date CC: Signed Normal [facility] MR/LDYDEQAG5sk 09-21-2024 MR/POSTOPAN2 [facility] Medical Records Department [address] [place] [address] Anesthesia Postop Eval II 09/21/24954 MR#: [id number] Acct: [id number] Name: YAYA VÁSQUEZRA Bernal Rep #: [id number] : 1950 73 From: Eduar Turcios MD PCP: KRYSTIAN Ledesma, SANDING MACHINE TENDER-C Status:REG SDC Y Race: C Location: [facility]14-1 Anesthesia Postop Eval I Sum Postop [...] Eduar Zuniga Signature: Date CC: Signed Normal [facility] Breast Bilateral W/O and Won 09-01-2024 Breast Bilateral W/O and W [facility] Imaging Services [address] [place] [address] Breast Bilateral W/O and W MR#: [id number] Acct: [id number] Name: WINIFRED VÁSQUEZ Rep #: [id number] : 1950 F 73 From: Jayden Bo MD PCP: KRYSTIAN Ledesma, SANDING MACHINE TENDER-C Status: REG CLI Study: Breast Bilateral W/O and W Date of Exam: 09/01 Exam# [id number] Ordering Dr: Candice Rossi MD [id number] STUDY: BILATERAL BREAST MR WITHOUT AND WITH [...] 9:12 EST Reading Location ID and State: [facility] [place] , Service support , CC: [facility] OSMAN Agarwal; Dr. Candice Rossi MD Community Manager: Signed Normal [facility] Surgery Visit Reporton 08-11 Surgery Visit Report [facility] [address] [place] [address] OFFICE VISIT Date of Service: 08/11/24 MR#: [id number] Acct: [id number] Name: WINIFRED VÁSQUEZ Rep #: [id number] : 1950 Provider: Dr. Eder stallings MD Age/Sex: 73/F Location: [facility] Status: Signed Intake Vital Signs 03/04/24 [...] use type: does not use caffeine: No emanuel/druze: Mormon seatbelt use: always do yo (more content not included)... Normal [facility] ANTINUCLEAR ANTIBODIES DIREC Ton 08-04-2024 GARFIELD,DIRECT Negative Normal Negative [facility] Comment on above: Result Comment: Perf ormed at: CB - [facility] [address] [id number] [employer] Sales Consultant: Claude Jay PhD, Phone: [phone] Performed By: #### L 705.3102, J4216.4452, L100.0100, L500.7400, L502.0500 ####[facility] [address] [place], [address] CBC W/Diff, Automatedon 10-0 Absolute Lymph 2.30 X10 3/uL Normal 0.83-4.51 [facility] Comment on above: Performed By: #### L 501.9520, L3100.5475, L100.0100, L500.4050, L502.0500 ####[facility] [address] [place], [address] Absolute Neut 3.7 X10 3/uL Normal 2.0-7.7 [facility] Comment on above: Performed By: #### L 501.9520, L3100.5475, L100.0100, L500.4050, L502.0500 ####[facility] [address] [place], [address] Basophils/100 WBC (Bld) 0.6 % Normal 0-1 [facility] Comment on above: Performed By: #### L 501.9520, L3100.5475, L100.0100, L500.4050, L502.0500 ####[facility] [address] [place], [address] Eosinophils/100 WBC (Bld) 2.8 % Normal 0-5 [facility] Comment on above: Performed By: #### L 501.9520, L3100.5475, L100.0100, L500.4050, L502.0500 ####[facility] [address] [place], [address] Erythrocyte distribution width (RBC) [Ratio] 12.5 % Normal 11.6-14.6 [facility] Comment on above: Performed By: #### L 501.9520, L3100.5475, L100.0100, L500.4050, L502.0500 ####[facility] [address] [place], [address] Hematocrit (Bld) [Volume fraction] 42.9 % Normal 37-47 [facility] Comment on above: Performed By: #### L 501.9520, L3100.5475, L100.0100, L500.4050, L502.0500 ####[facility] [address] [place], [address] Hemoglobin (Bld) [Mass/Vol] 13.8 g/dL Normal 12.0-15.0 [facility] Comment on above: Performed By: #### L 501.9520, L3100.5475, L100.0100, L500.4050, L502.0500 ####[facility] [address] [place], [address] IG% 0.300 Normal 0.0-0.9 [facility] Comment on above: Result Comment: IG% - Immature Granulocytes (promyelocytes, myelocytes and metamyelocytes) > 1% indicates that a LEFT SHIFT is Present. Performed By: #### L 501.9520, L3100.5475, L100.0100, L500.4050, L502.0500 ####[facility] [address] [place], [address] Lymphocytes/100 WBC (Bld) 33.9 % Normal 19-41 [facility] Comment on above: Performed By: #### L 501.9520, L3100.5475, L100.0100, L500.4050, L502.0500 ####[facility] [address] [place], [address] MCH (RBC) [Entitic mass] 29.7 pg Normal 27.0-32.0 [facility] Comment on above: Performed By: #### L 501.9520, L3100.5475, L100.0100, L500.4050, L502.0500 ####[facility] [address] [place], [address] MCHC (RBC) [Mass/Vol] 32.2 g/dL Normal 32-36 [facility] Comment on above: Performed By: #### L 501.9520, L3100.5475, L100.0100, L500.4050, L502.0500 ####[facility] [address] [place], [address] MCV (RBC) [Entitic vol] 92.3 fL Normal 81-99 [facility] Comment on above: Performed By: #### L 501.9520, L3100.5475, L100.0100, L500.4050, L502.0500 ####[facility] [address] [place], [address] Monocytes/100 WBC (Bld) 7.7 % Normal 0-10 [facility] Comment on above: Performed By: #### L 501.9520, L3100.5475, L100.0100, L500.4050, L502.0500 ####[facility] [address] [place], [address] Neutrophils/100 WBC (Bld) 54.7 % Normal 47-70 [facility] Comment on above: Performed By: #### L 501.9520, L3100.5475, L100.0100, L500.4050, L502.0500 ####[facility] [address] [place], [address] Nucleated RBC (Bld) [#/Vol] 0 10*3/uL Normal 0-5 [facility] Comment on above: Performed By: #### L 501.9520, L3100.5475, L100.0100, L500.4050, L502.0500 ####[facility] [address] [place], [address] Platelet mean volume (Bld) [Entitic vol] 11.3 fL Normal 6.2-12.0 [facility] Comment on above: Performed By: #### L 501.9520, L3100.5475, L100.0100, L500.4050, L502.0500 ####[facility] [address] [place], [address] Platelets (Bld) [#/Vol] 174 10*3/uL Normal 150-450 [facility] Comment on above: Performed By: #### L 501.9520, L3100.5475, L100.0100, L500.4050, L502.0500 ####[facility] [address] [place], [address] RBC (Bld) [#/Vol] 4.65 10*6/uL Normal 4.2-5.4 [facility] Comment on above: Performed By: #### L 501.9520, L3100.5475, L100.0100, L500.4050, L502.0500 ####[facility] [address] [place], [address] RDW SD 42.3 fl Normal 35.1-43.9 [facility] Comment on above: Performed By: #### L 501.9520, L3100.5475, L100.0100, L500.4050, L502.0500 ####[facility] [address] [place], [address] WBC (Bld) [#/Vol] 6.8 10*3/uL Normal 4.4-11.0 [facility] Comment on above: Performed By: #### L 501.9520, L3100.5475, L100.0100, L500.4050, L502.0500 ####[facility] [address] [place], [address] Comprehensive Metabolic [facility] 08-03-2024 Albumin [Mass/Vol] 3.8 g/dL Normal 3.2-5.0 [facility] Comment on above: Performed By: #### L 501.9520, L3100.5475, L100.0100, L500.4050, L502.0500 ####[facility] [address] [place], [address] Albumin/Globulin [Mass ratio] 1.1 {ratio} Normal 0.9-2.4 [facility] Comment on above: Performed By: #### L 501.9520, L3100.5475, L100.0100, L500.4050, L502.0500 ####[facility] [address] [place], [address] ALK P 90 U/L Normal 45-117 [facility] Comment on above: Performed By: #### L 501.9520, L3100.5475, L100.0100, L500.4050, L502.0500 ####[facility] [address] [place], [address] ALT [Catalytic activity/Vol] 24 U/L Normal 13-56 [facility] Comment on above: Performed By: #### L 501.9520, L3100.5475, L100.0100, L500.4050, L502.0500 ####[facility] [address] [place], [address] AST [Catalytic activity/Vol] 24 U/L Normal 15-37 [facility] Comment on above: Performed By: #### L 501.9520, L3100.5475, L100.0100, L500.4050, L502.0500 ####[facility] [address] [place], [address] Bilirubin [Mass/Vol] 1.10 mg/dL High 0.20-1.00 [facility] Comment on above: Result Comment: For patients on eltrombopag therapy, use of Dimension [place] TBIL is not recommended. Performed By: #### L 501.9520, L3100.5475, L100.0100, L500.4050, L502.0500 ####[facility] [address] [place], [address] BUN/CRE 24.7 RATIO High 10-20 [facility] Comment on above: Performed By: #### L 501.9520, L3100.5475, L100.0100, L500.4050, L502.0500 ####[facility] [address] [place], [address] CA,Total 9.5 mg/dL Normal 8.5-10.1 [facility] Comment on above: Performed By: #### L 501.9520, L3100.5475, L100.0100, L500.4050, L502.0500 ####[facility] [address] [place], [address] Chloride [Moles/Vol] 104 mmol/L Normal 98-107 [facility] Comment on above: Performed By: #### L 501.9520, L3100.5475, L100.0100, L500.4050, L502.0500 ####[facility] [address] [place], [address] CO2 [Moles/Vol] 25.0 mmol/L Normal 21.0-32.0 [facility] Comment on above: Performed By: #### L 501.9520, L3100.5475, L100.0100, L500.4050, L502.0500 ####[facility] [address] [place], [address] Creatinine [Mass/Vol] 0.73 mg/dL Normal 0.55-1.02 [facility] Comment on above: Result Comment: The validity of the calculated GFR GFRAA in patients over 70 years has not been determined. Clinical correlation is essential. Performed By: #### L 501.9520, L3100.5475, L100.0100, L500.4050, L502.0500 ####[facility] [address] [place], [address] EST GFR - AA 100 mL/min Normal >60 [facility] Comment on above: Result Comment: Afri can [place] GFR Calc Performed By: #### L 501.9520, L3100.5475, L100.0100, L500.4050, L502.0500 ####[facility] [address] [place], [address] GAP 9 Normal 5-15 [facility] Comment on above: Performed By: #### L 501.9520, L3100.5475, L100.0100, L500.4050, L502.0500 ####[facility] [address] [place], [address] GFR/1.73 sq M.predicted among non-blacks MDRD (S/P/Bld) [Vol rate/Area] 83 mL/min/{1.73_m2} Normal >60 [facility] Comment on above: Result Comment: Non- GFR Calc Performed By: #### L 501.9520, L3100.5475, L100.0100, L500.4050, L502.0500 ####[facility] [address] [place], [address] Globulin (S) [Mass/Vol] 3.6 g/dL Normal 2.2-4.2 [facility] Comment on above: Performed By: #### L 501.9520, L3100.5475, L100.0100, L500.4050, L502.0500 ####[facility] [address] [place], [address] Glucose [Mass/Vol] 103 mg/dL Normal 74-106 [facility] Comment on above: Result Comment: Fast ing Glucose result from 100 to 125 mg/dL suggests IMPAIRED HOMEOSTASIS per A.D.A. criteria. Performed By: #### L 501.9520, L3100.5475, L100.0100, L500.4050, L502.0500 ####[facility] [address] [place], [address] Potassium [Moles/Vol] 3.8 mmol/L Normal 3.5-5.1 [facility] Comment on above: Performed By: #### L 501.9520, L3100.5475, L100.0100, L500.4050, L502.0500 ####[facility] [address] [place], [address] Sodium [Moles/Vol] 139 mmol/L Normal 136-145 [facility] Comment on above: Performed By: #### L 501.9520, L3100.5475, L100.0100, L500.4050, L502.0500 ####[facility] [address] [place], [address] T PROT 7.4 g/dL Normal 6.4-8.2 [facility] Comment on above: Performed By: #### L 501.9520, L3100.5475, L100.0100, L500.4050, L502.0500 ####[facility] [address] [place], [address] Urea nitrogen [Mass/Vol] 18 mg/dL Normal 7-18 [facility] Comment on above: Performed By: #### L 501.9520, L3100.5475, L100.0100, L500.4050, L502.0500 ####[facility] [address] [place], [address] Microalbumin,Random Urineon 08-03-2024 MICROALBUMIN,UR 5.4 mg/L Normal NO RANGE EST. [facility] Comment on above: Performed By: #### L 501.9520, L3100.5475, L100.0100, L500.4050, L502.0500 ####[facility] [address] [place], [address] Thyroid Stim Hormone (TSH)on 08-03-2024 TSH 1.650 uIU/mL Normal 0.358-3.74 0 [facility] Comment on above: Performed By: #### L 501.9520, L3100.5475, L100.0100, L500.4050, L502.0500 ####[facility] [address] [place], [address] Esophagus Dual Contraston Esophagus Dual Contrast [facility] Imaging Services [address] [place] [address] Esophagus Dual Contrast MR#: [id number] Acct: [id number] Name: WINIFRED VÁSQUEZ Rep #: [id number] : 1950 F 73 From: Lefty spangler MD PCP: [facility] Status: REG CLI Study: Esophagus Dual Contrast Date of Exam: 07/02/24 Exam# [id number] Ordering Dr: Lucita Agarwal [facility] SANDING MACHINE TENDER-C 4:[id number] STUDY: X-RAY - ESOPHAGUS (BARIUM SWALLOW) WITH [...] Espinoza MD at 13:47 EDT , CC: [facility] OSMAN Agarwal; [facility] Community Manager: Signed Normal [facility] Basophil percentageOrdered B y: [facility] Lucita Agarwal on 02-17-2024 Bilirubin [Mass/Vol] 1.10 mg/dL 0.20-1.00 [facility] Comment on above: For patients on eltr ombopag therapy, use of Dimension [place] TBIL is not recommended. Chloride [Moles/Vol] 105 mmol/L 98-107 [facility] Cholesterol [Mass/Vol] 168 mg/dL <200 [facility] Comment on above: <200 mg/dL Desirable 200-240 mg/dL Borderline >240 mg/dL High Risk Glucose [Mass/Vol] 123 mg/dL 74-106 [facility] Comment on above: Fasting Glucose resu lt from 100 to 125 mg/dL suggests IMPAIRED HOMEOSTASIS per A.D.A. criteria. Hemoglobin (Bld) [Mass/Vol] 13.5 g/dL 12.0-15.0 [facility] Potassium [Moles/Vol] 4.1 mmol/L 3.5-5.1 [facility] Protein [Mass/Vol] 7.3 g/dL 6.4-8.2 [facility] Sodium [Moles/Vol] 139 mmol/L 136-145 [facility] Triglyceride [Mass/Vol] 142 mg/dL <199 [facility] Comment on above: The drugs N-Acetylcy steine and Metamizole may falsely depress this assay.Serum Triglycerides Reference Interval Normal <150 mg/dL Borderline high 150 - 199 mg/dL High 200 - 499 mg/dL Very High > or = 500 mg/dL WBC (Bld) [#/Vol] 8.2 10*3/uL 4.4-11.0 [facility] Determination of erythrocyte mean corpuscular volume (MCV)Ordered By: [facility] Lucita Agarwal on 02-17-2024 MCV (RBC) [Entitic vol] 92.4 fL 81-99 [facility] Erythrocyte distribution wid th ratioOrdered By: [facility] Lucita Agarwal on 02-17-2024 Erythrocyte distribution width (RBC) [Ratio] 12.5 % 11.6-14.6 [facility] Erythrocyte distribution wid th standard deviationOrdered By: [facility] Lucita Stefano on 02-17-2024 Erythrocyte distribution width (RBC) [Entitic vol] 42.3 fL 35.1-43.9 [facility] Hematocrit Auto (Bld) [Volum e fraction]Ordered By: [facility] Lucita Stefano on 02-17-2024 Hematocrit (Bld) [Volume fraction] 41.5 % 37-47 [facility] - Chemistry and C hemistry - challengeOrdered By: [facility] Lucita Stefano on 02-17-2024 Albumin/Globulin [Mass ratio] 0.9 {ratio} 0.9-2.4 [facility] ALP [Catalytic activity/Vol] 85 U/L 45-117 [facility] ALT [Catalytic activity/Vol] 25 U/L 13-56 [facility] Cholesterol in HDL [Mass/Vol] 43 mg/dL >40 [facility] Comment on above: The drugs N-Acetylcy steine and Metamizole may falsely depress this assay. Reference Range HDL <40 mg/dL Low HDL Cholesterol HDL >or= 60 mg/dL High HDL Cholesterol Cholesterol in LDL [Mass/Vol] 97 mg/dL 0-130 [facility] CO2 [Moles/Vol] 29.0 mmol/L 21.0-32.0 [facility] Globulin (S) [Mass/Vol] 3.8 g/dL 2.2-4.2 [facility] Urea nitrogen/Creatinine [Mass ratio] 24.2 mg/mg 10-20 [facility] - Hematology and Cell countsOrdered By: [facility] Lucitaminnie Agarwal on 02-17-2024 MCH (RBC) [Entitic mass] 30.1 pg 27.0-32.0 [facility] MCHC (RBC) [Mass/Vol] 32.5 g/dL 32-36 [facility] Platelet mean volume (Bld) [Entitic vol] 11.4 fL 6.2-12.0 [facility] Platelets (Bld) [#/Vol] 175 10*3/uL 150-450 [facility] No Panel InformationOrdered By: [facility] Lucitaminnie Agarwal on 02-17-2024 Estimated GFR (MDRD) Amer 105 mL/min >60 [facility] Comment on above: GFR Calc Estimated GFR (MDRD) Non-Af Amer 87 mL/min >60 [facility] Comment on above: Non- GFR Calc VLDL Cholesterol 28 mg/dL 5-40 [facility] RBC Auto (Bld) [#/Vol]Ordere d By: [facility] Lucita Stefano on 02-17-2024 RBC (Bld) [#/Vol] 4.49 10*6/uL 4.2-5.4 [facility] Serum or plasma calcium jackie urement (mass/volume)Ordered By: [facility] Lucita Agarwal on 02-17-2024 Calcium [Mass/Vol] 9.4 mg/dL 8.5-10.1 [facility] Serum or plasma creatinine m easurement (mass/volume)Ordered By: [facility] Lucitaminnie Agarwal on 02-17-2024 Creatinine [Mass/Vol] 0.70 mg/dL 0.55-1.02 [facility] Comment on above: The validity of the calculated GFR & GFRAA in patients over 70 years has not been determined. Clinical correlation is essential. Serum or plasma urea nitroge n measurement (mass/volume)Ordered By: [facility] Lucitaminnie Agarwal on 02-17-2024 Urea nitrogen [Mass/Vol] 17 mg/dL 7-18 [facility] Thin prep Papanicolaou smear with manual screeningOrdered By: [facility] Lucita Stefano on 02-17-2024 Thin prep Papanicolaou smear with manual screening 3.5 g/dL 3.2-5.0 [facility] Thin prep Papanicolaou smear with manual screening 25 U/L 15-37 [facility] Thin prep Papanicolaou smear with manual screening 5 5-15 [facility] Thin prep Papanicolaou smear with manual screening 27.6 mg/L NO RANGE EST. [facility] Glucose Test strip manual (B ld) [Mass/Vol]on 12-25-2023 Glucose [Mass/Vol] 105 mg/dL High 74-[address] [facility] Comment on above: Performed By: #### 2 341-6 #### ZAVALETA MALA ([id number]) [facility] ([facility]) [address] [place] [address] HISTORY PHYSICALon HISTORY PHYSICAL HNO ID: [id number] Author: MARSHA HARRIS MD Service: ? Author [...] dialysis. No history of symptoms or problems. ASSOCIATE CHIEF NURSE: Negative for abnormal vaginal bleeding, abnormal vaginal discharge. : N/A Endocrine: Diabetes Mellitus on oral agent Hematology: No history (more content not included)... Normal [facility] CNOVon 09-19-2023 CNOV Office Visit (UCWSTR ) WINIFRED VÁSQUEZ ([id number]) 1950 F Date Time Provider Department 09/19/23 12:15 PM LUIS OSORIO [facility] During your visit today, we recorded the following information about you: Luis Osorio APRN.CNP 09/19/2023 12:22 PM Signed Patient triaged at [facility]. Here today with upset stomach/not eating/weigth [...] Status:Closed by LUIS OSORIO on 09/19/23 Normal [facility] Absolute lymphocyte countOrd ered By: Candice Rossi on 09-04-2023 Lymphocytes Auto (Unsp spec) [#/Vol] 2.87 10*3/uL 0.83-4.51 [facility] Basophil percentageOrdered B y: Candice Rossi on 09-04-2023 Basophils/100 WBC (Bld) 0.4 % 0-1 [facility] Bilirubin [Mass/Vol] 1.50 mg/dL 0.20-1.00 [facility] Comment on above: For patients on eltr ombopag therapy, use of Dimension [place] TBIL is not recommended. Chloride [Moles/Vol] 105 mmol/L 98-107 [facility] Eosinophils/100 WBC (Bld) 3.3 % 0-5 [facility] Glucose [Mass/Vol] 99 mg/dL 74-106 [facility] Neutrophils (Bld) [#/Vol] 6.9 10*3/uL 2.0-7.7 [facility] Neutrophils/100 WBC (Bld) 62.0 % 47-70 [facility] Potassium [Moles/Vol] 3.9 mmol/L 3.5-5.1 [facility] Protein [Mass/Vol] 7.5 g/dL 6.4-8.2 [facility] Sodium [Moles/Vol] 137 mmol/L 136-145 [facility] WBC (Bld) [#/Vol] 11.2 10*3/uL 4.4-11.0 [facility] Blood erythrocytes count (nu mber/volume)Ordered By: Candice Rossi on 09-04-2023 RBC (Bld) [#/Vol] 4.60 10*6/uL 4.2-5.4 [facility] Blood hemoglobin measurement (mass/volume)Ordered By: Candice Rossi on 09-04-2023 Hemoglobin (Bld) [Mass/Vol] 14.0 g/dL 12.0-15.0 [facility] Blood lymphocytes/100 leukoc ytesOrdered By: Candice Rossi on 09-04-2023 Lymphocytes/100 WBC (Bld) 25.7 % 19-41 [facility] Blood monocytes/100 leukocyt esOrdered By: [facility] on 09-04-2023 Monocytes/100 WBC (Bld) 8.2 % 0-10 [facility] Blood platelet mean volumeOr dered By: Candice Rossi on 09-04-2023 Platelet mean volume (Bld) [Entitic vol] 11.3 fL 6.2-12.0 [facility] Determination of erythrocyte mean corpuscular volume (MCV)Ordered By: Candice Rossi on 09-04-2023 MCV (RBC) [Entitic vol] 92.8 fL 81-99 [facility] Hematocrit Auto (Bld) [Volum e fraction]Ordered By: [facility] on 09-04-2023 Hematocrit (Bld) [Volume fraction] 42.7 % 37-47 [facility] - Chemistry and C hemistry - challengeOrdered By: [facility] on 09-04-2023 ALP [Catalytic activity/Vol] 91 U/L 45-117 [facility] ALT [Catalytic activity/Vol] 20 U/L 13-56 [facility] CO2 [Moles/Vol] 28.0 mmol/L 21.0-32.0 [facility] Globulin (S) [Mass/Vol] 3.8 g/dL 2.2-4.2 [facility] Urea nitrogen/Creatinine [Mass ratio] 14.8 mg/mg 10-20 [facility] - Hematology and Cell countsOrdered By: [facility] on 09-04-2023 Erythrocyte distribution width (RBC) [Entitic vol] 42.8 fL 35.1-43.9 [facility] Erythrocyte distribution width (RBC) [Ratio] 12.4 % 11.6-14.6 [facility] Immature granulocytes/100 WBC (Bld) 0.400 % 0.0-0.9 [facility] Comment on above: IG% - Immature Granu locytes (promyelocytes, myelocytes and metamyelocytes) > 1% indicates that a LEFT SHIFT is Present. MCH (RBC) [Entitic mass] 30.4 pg 27.0-32.0 [facility] Nucleated RBC/100 WBC (Bld) [Ratio] 0 % 0-5 [facility] MCHC Auto (RBC) [Mass/Vol]Or dered By: Candice Rossi on 09-04-2023 MCHC (RBC) [Mass/Vol] 32.8 g/dL 32-36 [facility] No Panel InformationOrdered By: Candice Rossi on 09-04-2023 Estimated Creatinine Clearance Calc 103.20 ml/min [facility] Estimated GFR (MDRD) Amer 89 mL/min >60 [facility] Comment on above: GFR Calc Estimated GFR (MDRD) Non-Af Amer 74 mL/min >60 [facility] Comment on above: Non- GFR Calc Platelets bldOrdered By: Bandar Rossi on 09-04-2023 Platelets (Bld) [#/Vol] 147 10*3/uL 150-450 [facility] Serum or plasma albumin jackie urement (mass/volume)Ordered By: Candice Rossi on 09-04-2023 Albumin [Mass/Vol] 3.7 g/dL 3.2-5.0 [facility] Serum or plasma albumin/glob ulin mass ratioOrdered By: Candice Rossi on 09-04-2023 Albumin/Globulin [Mass ratio] 1.0 {ratio} 0.9-2.4 [facility] Serum or plasma calcium jackie urement (mass/volume)Ordered By: Candice Rossi on 09-04-2023 Calcium [Mass/Vol] 9.6 mg/dL 8.5-10.1 [facility] Serum or plasma creatinine m easurement (mass/volume)Ordered By: Candice Rossi on 09-04-2023 Creatinine [Mass/Vol] 0.81 mg/dL 0.55-1.02 [facility] Comment on above: The validity of the calculated GFR & GFRAA in patients over 70 years has not been determined. Clinical correlation is essential. Serum or plasma urea nitroge n measurement (mass/volume)Ordered By: Candice Rossi on 09-04-2023 Urea nitrogen [Mass/Vol] 12 mg/dL 7-18 [facility] Thin prep Papanicolaou smear with manual screeningOrdered By: Candice Rossi on 09-04-2023 Thin prep Papanicolaou smear with manual screening 19 U/L 15-37 [facility] Thin prep Papanicolaou smear with manual screening 4 5-15 [facility] Basophil percentageOrdered B y: Candice Rossi on 09-01-2023 Basophil percentage < 0.9 mg/dL 0.55-1.02 [facility] No Panel InformationOrdered By: Candice Rossi on 09-01-2023 Bedside Estimated GFR (eGFR) > 60.0000 mL/min >60 [facility] CBC panel Auto (Bld)on 03-31 Erythrocyte distribution width (RBC) [Ratio] 12.2 % Normal 11.5-15.0 [facility] Comment on above: Order Comment: Speci men Type: BLOOD SPECIMEN Ordering Facility: [facility] Address: [address] [place] [address] Performed By: #### 2 4323-8, 00073-7, 6-3 #### [facility] CLIA [id number] [address] [place] [address] [place] Hematocrit (Bld) [Volume fraction] 44.2 % Normal 36.0-46.0 [facility] Comment on above: Order Comment: Speci men Type: BLOOD SPECIMEN Ordering Facility: [facility] Address: [address] [place] [address] Performed By: #### 2 4323-8, 97507-2, 3016-3 #### [facility] CLIA [id number] [address] [address] [place] Hemoglobin (Bld) [Mass/Vol] 14.4 g/dL Normal 11.5-15.5 [facility] Comment on above: Order Comment: Speci men Type: BLOOD SPECIMEN Ordering Facility: [facility] Address: [address] [place] [address] Performed By: #### 2 4323-8, 08450-9, 3016-3 #### [facility] CLIA [id number] [address] [place] [address] [place] MCH (RBC) [Entitic mass] 30.6 pg Normal 26.0-34.0 [facility] Comment on above: Order Comment: Speci men Type: BLOOD SPECIMEN Ordering Facility: [facility] Address: [address] [place] [address] Performed By: #### 2 4323-8, 86716-1, 3016-3 #### [facility] CLIA [id number] [address] [place] [address] [place] [facility] MCHC (RBC) [Mass/Vol] 32.6 g/dL Normal 30.5-36.0 [facility] Comment on above: Order Comment: Speci men Type: BLOOD SPECIMEN Ordering Facility: [facility] Address: [address] [place] [address] Performed By: #### 2 4323-8, 60699-3, 3016-3 #### [facility] CLIA [id number] [address] [place] [address] [place] MCV (RBC) [Entitic vol] 93.8 fL Normal 80.0-100.0 [facility] Comment on above: Order Comment: Speci men Type: BLOOD SPECIMEN Ordering Facility: [facility] Address: [address] [place] [address] Performed By: #### 2 4323-8, 66252-3, 3016-3 #### [facility] CLIA [id number] [address] [place] [id number] [address] [place] Nucleated RBC (Bld) [#/Vol] 10*3/uL Normal <0.01 [facility] Comment on above: Order Comment: Speci men Type: BLOOD SPECIMEN Ordering Facility: [facility] Address: [address] [place] [address] Performed By: #### 2 4323-8, 60323-9, 3016-3 #### [facility] CLIA [id number] [address] [place] [address] [place] Platelet mean volume (Bld) [Entitic vol] 12.1 fL Normal 9.0-12.7 [facility] Comment on above: Order Comment: Speci men Type: BLOOD SPECIMEN Ordering Facility: [facility] Address: [address] [place] [address] Performed By: #### 2 4323-8, 53800-3, 3016-3 #### [facility] CLIA [id number] [address] [place] [address] [place] Platelets (Bld) [#/Vol] 170 10*3/uL Normal 150-400 [facility] Comment on above: Order Comment: Speci men Type: BLOOD SPECIMEN Ordering Facility: [facility] Address: [address] [place] [address] Performed By: #### 2 4323-8, 97682-3, 3016-3 #### [facility] CLIA [id number] [address] [place], [place] [id number] [place] RBC (Bld) [#/Vol] 4.71 10*6/uL Normal 3.90-5.20 [facility] Comment on above: Order Comment: Speci men Type: BLOOD SPECIMEN Ordering Facility: [facility] Address: [address] [place] [address] Performed By: #### 2 4323-8, 76664-2, 3016-3 #### [facility] CLIA [id number] [address] [place], [place] [id number] [place] WBC (Bld) [#/Vol] 6.86 10*3/uL Normal 3.70-11.00 [facility] Comment on above: Order Comment: Speci men Type: BLOOD SPECIMEN Ordering Facility: [facility] Address: [address] [place] [address], [place] [address] Performed By: #### 2 4323-8, 82362-7, 3016-3 #### [facility] CLIA [id number] [address] [place] [address] [place] Comprehensive metabolic 2000 panelon 03-31-2023 Albumin [Mass/Vol] 4.2 g/dL Normal 3.9-4.9 [facility] Comment on above: Order Comment: Speci men Type: BLOOD SPECIMEN Ordering Facility: [facility] Address: [address] [place] [address], [place] [address] Performed By: #### 2 4323-8, 72371-3, 6-3 #### [facility] CLIA [id number] [address] [place] [address] [place] ALP [Catalytic activity/Vol] 88 U/L Normal 34-123 [facility] Comment on above: Order Comment: Speci men Type: BLOOD SPECIMEN Ordering Facility: [facility] Address: [address] [place] [address], [place] [address] Performed By: #### 2 4323-8, 40835-0, 6-3 #### [facility] CLIA [id number] [address] [place] [address] [place] ALT [Catalytic activity/Vol] 32 U/L Normal 7-38 [facility] Comment on above: Order Comment: Speci men Type: BLOOD SPECIMEN Ordering Facility: [facility] Address: [address] [place] [address], [place] [address] Performed By: #### 2 4323-8, 24409-7, 3016-3 #### [facility] CLIA [id number] [address] [place] [address] [place] Anion gap [Moles/Vol] 14 mmol/L Normal 9-18 [facility] Comment on above: Order Comment: Speci men Type: BLOOD SPECIMEN Ordering Facility: [facility] Address: [address] [place] [address], [place] [address] Performed By: #### 2 4323-8, 03369-5, 3016-3 #### [facility] CLIA [id number] [address] [place] [address] [place] AST [Catalytic activity/Vol] 39 U/L High 13-35 [facility] Comment on above: Order Comment: Speci men Type: BLOOD SPECIMEN Ordering Facility: [facility] Address: [address] [place] [address], [place] [address] Performed By: #### 2 4323-8, 70853-7, 3016-3 #### [facility] CLIA [id number] [address] [place] [address] [place] Bilirubin [Mass/Vol] 0.7 mg/dL Normal 0.2-1.3 [facility] Comment on above: Order Comment: Speci men Type: BLOOD SPECIMEN Ordering Facility: [facility] Address: [address] [place] [address], [place] [address] Performed By: #### 2 4323-8, 47435-1, 3016-3 #### [facility] CLIA [id number] [address] [place] [address] [place] Calcium [Mass/Vol] 10.2 mg/dL Normal 8.5-10.2 [facility] Comment on above: Order Comment: Speci men Type: BLOOD SPECIMEN Ordering Facility: [facility] Address: [address] [place] [address], [place] [address] Performed By: #### 2 4323-8, 65324-6, 3016-3 #### [facility] CLIA [id number] [address] [place] [id number] [address] [place] Chloride [Moles/Vol] 103 mmol/L Normal 97-105 [facility] Comment on above: Order Comment: Speci men Type: BLOOD SPECIMEN Ordering Facility: [facility] Address: [address] [place] [address] Performed By: #### 2 4323-8, 86161-1, 3016-3 #### [facility] CLIA [id number] [address] [place] [address] [place] CO2 [Moles/Vol] 23 mmol/L Normal 22-30 [facility] Comment on above: Order Comment: Speci men Type: BLOOD SPECIMEN Ordering Facility: [facility] Address: [address] [place] [address] Performed By: #### 2 4323-8, 61716-0, 3016-3 #### [facility] CLIA [id number] [address] [place] [address] STATES [place] [facility] Creatinine [Mass/Vol] 0.70 mg/dL Normal 0.58-0.96 [facility] Comment on above: Order Comment: Speci men Type: BLOOD SPECIMEN Ordering Facility: [facility] Address: [address] [place] [address] Performed By: #### 2 4323-8, 60126-9, 3016-3 #### [facility] CLIA [id number] [address] [place] [address] [place] ESTIMATED GLOMERULAR FILTRATION RATE 91 mL/min/1.73m??? Normal >=60 [facility] Comment on above: Order Comment: Speci men Type: BLOOD SPECIMEN Ordering Facility: [facility] Address: [address] [place] [address] Result Comment: Abby mated Glomerular Filtration Rate [...] actual GFR. Performed By: #### 2 4323-8, 03592-6, 3015-3 #### [facility] CLIA [id number] [address] [address] [place] Glucose [Mass/Vol] 105 mg/dL High 74-99 [facility] Comment on above: Order Comment: Jcarlos sandhu Type: BLOOD SPECIMEN Ordering Facility: [facility] Address: [address] [place] [address], [place] [address] Result Comment: The [place] [employer] (ADA) provides guidance for cutoff [...] Standards of Medical Care in Diabetes 2016, [place] [employer]. Diabetes Care. 2016.39(Suppl 1). Performed By: #### 2 4323-8, 92061-3, 3015-12 #### [facility] CLIA [id number] [address] [address] [place] Potassium [Moles/Vol] 4.4 mmol/L Normal 3.7-5.1 [facility] Comment on above: Order Comment: Jcarlos sandhu Type: BLOOD SPECIMEN Ordering Facility: [facility] Address: [address] [facility], [place] [address] Performed By: #### 2 4323-8, 46952-4, 3 #### [facility] CLIA [id number] [address] [address] [place] Protein [Mass/Vol] 7.1 g/dL Normal 6.3-8.0 [facility] Comment on above: Order Comment: Speci men Type: BLOOD SPECIMEN Ordering Facility: [facility] Address: [address] [facility], [place] [address] Performed By: #### 2 4323-8, 91995-3, 3015-3 #### [facility] CLIA [id number] [address] [place] [address] [place] Sodium [Moles/Vol] 140 mmol/L Normal 136-144 [facility] Comment on above: Order Comment: Speci men Type: BLOOD SPECIMEN Ordering Facility: [facility] Address: [address] [place] [address], [place] [address] Performed By: #### 2 4323-8, 01616-2, 3015-3 #### [facility] CLIA [id number] [address] [place] [address] [place] Urea nitrogen [Mass/Vol] 23 mg/dL High 7-21 [facility] Comment on above: Order Comment: Speci men Type: BLOOD SPECIMEN Ordering Facility: [facility] Address: [address] [facility], [place] [address] Performed By: #### 2 4323-8, 87337-7, 3 #### [facility] CLIA [id number] [address] [place], [place] [address] [place] Lipid 1996 panelon 3 Cholesterol [Mass/Vol] 172 mg/dL Normal <200 [facility] Comment on above: Order Comment: Speci men Type: BLOOD SPECIMEN Ordering Facility: [facility] Address: [address] [facility], [place] [id number] Result Comment: <200 mg/dL, Desirable 200-239 mg/dL, Borderline high >239 mg/dL, High Performed By: #### 2 4323-8, 08170-4, 3015-3 #### [facility] CLIA [id number] [address] [address] [place] Cholesterol in HDL [Mass/Vol] 43 mg/dL Normal >39 [facility] Comment on above: Order Comment: Speci men Type: BLOOD SPECIMEN Ordering Facility: [facility] Address: [address] [place] [address], [place] [address] Result Comment: 40-5 9 mg/dL, Acceptable >59 mg/dL, High: Negative risk factor for coronary heart disease <40 mg/dL, Low: Positive risk factor for coronary heart disease Performed By: #### 2 4323-8, 82970-0, 6-3 #### [facility] CLIA [id number] [address] [place] [address] [place] Cholesterol in LDL [Mass/Vol] 102 mg/dL High <100 [facility] Comment on above: Order Comment: Jcarlos phoebe Type: BLOOD SPECIMEN Ordering Facility: [facility] Address: [address] [place] [address], [place] [address] Result Comment: <100 mg/dL, Optimal 100-129 mg/dL, Near optimal/above optimal 130-159 mg/dL, Borderline high 160-189 mg/dL, High >189 mg/dL, Very high Secondary prevention optimal LDL Cholesterol levels are recommended to be < 70 mg/dL Performed By: #### 2 4323-8, 44152-5, 3015-3 #### [facility] CLIA [id number] [address] [place] [address] [place] Cholesterol in LDL/Cholesterol in HDL [Mass ratio] 2.37 {ratio} Normal <2.54 [facility] Comment on above: Order Comment: Jcarlos sandhu Type: BLOOD SPECIMEN Ordering Facility: [facility] Address: [address] [place] [address], [place] [address] Result Comment: Viviana piper: 1. National Cholesterol Education Program ATP III Guideline At-A-Glance Quick Desk Reference: National Heart, Lung, and Blood [place]. National Institutes of Health. 2001: NIH Publication No. 01-3305. 2. An International Atherosclerosis Society position paper: global recommendations for the management of dyslipidemia: executive summary, Atherosclerosis. 2014: 232(2):410-413. Performed By: #### 2 4323-8, 55305-6, 3015-3 #### [facility] CLIA [id number] [address] [place] [id number] [place] Cholesterol in VLDL [Mass/Vol] 27 mg/dL Normal <30 [facility] Comment on above: Order Comment: Speci men Type: BLOOD SPECIMEN Ordering Facility: [facility] Address: [address] [place] [address], [place] [address] Performed By: #### 2 4323-8, 68492-5, 3015-3 #### [facility] CLIA [id number] [address] [place] [address] [place] Cholesterol non HDL [Mass/Vol] 129 mg/dL Normal <130 [facility] Comment on above: Order Comment: Speci men Type: BLOOD SPECIMEN Ordering Facility: [facility] Address: [address] [place] [address], [place] [address] Result Comment: <130 mg/dL, Optimal 130-159 mg/dL, Near optimal/above optimal 160-189 mg/dL, Borderline high 190-219 mg/dL, High >219 mg/dL, Very high Secondary prevention optimal non HDL Cholesterol levels are recommended to be <100 mg/dL Performed By: #### 2 4323-8, 54378-1, 3015-3 #### [facility] CLIA [id number] [address] [place] [address] [place] Cholesterol.total/Chol esterol in HDL [Mass ratio] 4.00 {ratio} Normal <5.10 [facility] Comment on above: Order Comment: Speci men Type: BLOOD SPECIMEN Ordering Facility: [facility] Address: [address] [place] [address], [place] [address] Performed By: #### 2 4323-8, 09187-9, 3015-3 #### [facility] CLIA [id number] [address] [place] [id number] [place] FASTING TIME 12 hrs Normal [facility] Comment on above: Order Comment: Speci men Type: BLOOD SPECIMEN Ordering Facility: [facility] Address: [address] [place] [address], [place] [address] Performed By: #### 2 4323-8, 54431-1, 3016-3 #### [facility] CLIA [id number] [address] [place] Triglyceride [Mass/Vol] 137 mg/dL Normal <150 [facility] Comment on above: Order Comment: Speci men Type: BLOOD SPECIMEN Ordering Facility: [facility] Address: [address] [place] [address], [place] [address] Result Comment: <150 mg/dL, Normal 150-199 mg/dL, Borderline high 200-499 mg/dL, High >499 mg/dL, Very high Performed By: #### 2 4323-8, 08330-3, 3015-3 #### [facility] CLIA [id number] [address] [place] [address] [place] TSH SerPl-aCncon 03-31-2023 TSH Qn 1.230 m[IU]/L Normal 0.270-4.20 0 [facility] Comment on above: Order Comment: Speci men Type: BLOOD SPECIMEN Ordering Facility: [facility] Address: [address] [place] [address], [place] [address] Performed By: #### 2 4323-8, 37095-6, 6-3 #### [facility] CLIA [id number] [address] [place] [address] [place] Glucose Test strip manual (B ld) [Mass/Vol]on 03-13-2023 Glucose [Mass/Vol] 111 mg/dL High 74 - 99 mg/dL [facility] Interpretation and review of laboratory results Abnormal [facility] Absolute lymphocyte counton 09-03-2022 Lymphocytes Auto (Unsp spec) [#/Vol] 3.07 10*3/uL 0.83-4.51 [facility] Work Phone: Basophil percentageon 2021 Basophils/100 WBC (Bld) 0.5 % 0-1 [facility] Work Phone: Bilirubin [Mass/Vol] 0.90 mg/dL 0.20-1.00 [facility] Work Phone: Comment on above: For patients on eltr ombopag therapy, use of Dimension [place] TBIL is not recommended. Chloride [Moles/Vol] 106 mmol/L 98-107 [facility] Work Phone: Eosinophils/100 WBC (Bld) 3.6 % 0-5 [facility] Work Phone: Glucose [Mass/Vol] 103 mg/dL 74-106 [facility] Work Phone: Comment on above: Fasting Glucose resu lt from 100 to 125 mg/dL suggests IMPAIRED HOMEOSTASIS per A.D.A. criteria. Neutrophils (Bld) [#/Vol] 4.2 10*3/uL 2.0-7.7 [facility] Work Phone: Neutrophils/100 WBC (Bld) 50.9 % 47-70 [facility] Work Phone: Potassium [Moles/Vol] 4.2 mmol/L 3.5-5.1 [facility] Work Phone: Protein [Mass/Vol] 7.2 g/dL 6.4-8.2 [facility] Work Phone: Sodium [Moles/Vol] 142 mmol/L 136-145 [facility] Work Phone: WBC (Bld) [#/Vol] 8.2 10*3/uL 4.4-11.0 [facility] Work Phone: Blood erythrocytes count (nu mber/volume)on 09-03-2022 RBC (Bld) [#/Vol] 4.49 10*6/uL 4.2-5.4 [facility] Work Phone: Blood hemoglobin measurement (mass/volume)on 09-03-2022 Hemoglobin (Bld) [Mass/Vol] 13.7 g/dL 12.0-15.0 [facility] Work Phone: Blood lymphocytes/100 leukoc yteson 09-03-2022 Lymphocytes/100 WBC (Bld) 37.6 % 19-41 [facility] Work Phone: Blood monocytes/100 leukocyt eson 09-03-2022 Monocytes/100 WBC (Bld) 7.0 % 0-10 [facility] Work Phone: Blood platelet mean volumeon 09-03-2022 Platelet mean volume (Bld) [Entitic vol] 10.9 fL 6.2-12.0 [facility] Work Phone: Determination of erythrocyte mean corpuscular volume (MCV)on 09-03-2022 MCV (RBC) [Entitic vol] 92.0 fL 81-99 [facility] Work Phone: Hematocrit Auto (Bld) [Volum e fraction]on 09-03-2022 Hematocrit (Bld) [Volume fraction] 41.3 % 37-47 [facility] Work Phone: Laboratory - Chemistry and C hemistry - challengeon 09-03-2022 ALP [Catalytic activity/Vol] 81 U/L 45-117 [facility] Work Phone: ALT [Catalytic activity/Vol] 52 U/L 13-56 [facility] Work Phone: CO2 [Moles/Vol] 29.0 mmol/L 21.0-32.0 [facility] Work Phone: Globulin (S) [Mass/Vol] 3.6 g/dL 2.2-4.2 [facility] Work Phone: Urea nitrogen/Creatinine [Mass ratio] 28.6 mg/mg 10-20 [facility] Work Phone: Laboratory - Hematology and Cell countson 09-03-2022 Erythrocyte distribution width (RBC) [Entitic vol] 41.9 fL 35.1-43.9 [facility] Work Phone: Erythrocyte distribution width (RBC) [Ratio] 12.4 % 11.6-14.6 [facility] Work Phone: Immature granulocytes/100 WBC (Bld) 0.400 % 0.0-0.9 [facility] Work Phone: Comment on above: IG% - Immature Granu locytes (promyelocytes, myelocytes and metamyelocytes) > 1% indicates that a LEFT SHIFT is Present. MCH (RBC) [Entitic mass] 30.5 pg 27.0-32.0 [facility] Work Phone: Nucleated RBC/100 WBC (Bld) [Ratio] 0 % 0-5 [facility] Work Phone: MCHC Auto (RBC) [Mass/Vol]on 09-03-2022 MCHC (RBC) [Mass/Vol] 33.2 g/dL 32-36 [facility] Work Phone: No Panel Informationon 09-03 Estimated GFR (MDRD) Amer 90 mL/min >60 [facility] Work Phone: Comment on above: GFR Calc Estimated GFR (MDRD) Non-Af Amer 74 mL/min >60 [facility] Work Phone: Comment on above: Non- GFR Calc Platelets bldon 09-03-2022 Platelets (Bld) [#/Vol] 173 10*3/uL 150-450 [facility] Work Phone: Serum or plasma albumin jackie urement (mass/volume)on 09-03-2022 Albumin [Mass/Vol] 3.6 g/dL 3.2-5.0 [facility] Work Phone: Serum or plasma albumin/glob ulin mass ratioon 09-03-2022 Albumin/Globulin [Mass ratio] 1.0 {ratio} 0.9-2.4 [facility] Work Phone: Serum or plasma calcium jackie urement (mass/volume)on 09-03-2022 Calcium [Mass/Vol] 9.3 mg/dL 8.5-10.1 [facility] Work Phone: Serum or plasma creatinine m easurement (mass/volume)on 09-03-2022 Creatinine [Mass/Vol] 0.80 mg/dL 0.55-1.02 [facility] Work Phone: Comment on above: The validity of the calculated GFR & GFRAA in patients over 70 years has not been determined. Clinical correlation is essential. Serum or plasma urea nitroge n measurement (mass/volume)on 09-03-2022 Urea nitrogen [Mass/Vol] 23 mg/dL 7-18 [facility] Work Phone: Thin prep Papanicolaou smear with manual screeningon 09-03-2022 Thin prep Papanicolaou smear with manual screening 47 U/L 15-37 [facility] Work Phone: Thin prep Papanicolaou smear with manual screening 7 5-15 [facility] Work Phone: Basophil percentageon 2021 Basophil percentage < 0.9 mg/dL 0.55-1.02 [facility] Work Phone: No Panel Informationon 08-29 Bedside Estimated GFR (eGFR) > 60.0000 mL/min >60 [facility] Work Phone: Absolute lymphocyte counton 04-22-2022 Lymphocytes Auto (Unsp spec) [#/Vol] 2.95 10*3/uL 0.83-4.51 [facility] Work Phone: Basophil percentageon 2021 Basophils/100 WBC (Bld) 0.4 % 0-1 [facility] Work Phone: Bilirubin [Mass/Vol] 0.80 mg/dL 0.20-1.00 [facility] Work Phone: Comment on above: For patients on eltr ombopag therapy, use of Dimension [place] TBIL is not recommended. Chloride [Moles/Vol] 106 mmol/L 98-107 [facility] Work Phone: Eosinophils/100 WBC (Bld) 3.0 % 0-5 [facility] Work Phone: [phone] Glucose [Mass/Vol] 116 mg/dL 74-106 [facility] Work Phone: [phone] Comment on above: Fasting Glucose resu lt from 100 to 125 mg/dL suggests IMPAIRED HOMEOSTASIS per A.D.A. criteria. Neutrophils (Bld) [#/Vol] 4.3 10*3/uL 2.0-7.7 [facility] Work Phone: Neutrophils/100 WBC (Bld) 52.5 % 47-70 [facility] Work Phone: Potassium [Moles/Vol] 4.0 mmol/L 3.5-5.1 [facility] Work Phone: Protein [Mass/Vol] 7.3 g/dL 6.4-8.2 [facility] Work Phone: Sodium [Moles/Vol] 140 mmol/L 136-145 [facility] Work Phone: WBC (Bld) [#/Vol] 8.1 10*3/uL 4.4-11.0 [facility] Work Phone: Blood erythrocytes count (nu mber/volume)on 04-22-2022 RBC (Bld) [#/Vol] 4.52 10*6/uL 4.2-5.4 [facility] Work Phone: Blood hemoglobin measurement (mass/volume)on 04-22-2022 Hemoglobin (Bld) [Mass/Vol] 14.0 g/dL 12.0-15.0 [facility] Work Phone: [phone] Blood lymphocytes/100 leukoc yteson 04-22-2022 Lymphocytes/100 WBC (Bld) 36.4 % 19-41 [facility] Work Phone: Blood monocytes/100 leukocyt eson 04-22-2022 Monocytes/100 WBC (Bld) 7.5 % 0-10 [facility] Work Phone: [phone] Blood platelet mean volumeon 06-27-2022 Platelet mean volume (Bld) [Entitic vol] 11.8 fL 6.2-12.0 [facility] Work Phone: Determination of erythrocyte mean corpuscular volume (MCV)on 04-22-2022 MCV (RBC) [Entitic vol] 92.3 fL 81-99 [facility] Work Phone: Hematocrit Auto (Bld) [Volum e fraction]on 04-22-2022 Hematocrit (Bld) [Volume fraction] 41.7 % 37-47 [facility] Work Phone: Laboratory - Chemistry and C hemistry - challengeon 04-22-2022 ALP [Catalytic activity/Vol] 81 U/L 45-117 [facility] Work Phone: ALT [Catalytic activity/Vol] 42 U/L 13-56 [facility] Work Phone: CO2 [Moles/Vol] 28.0 mmol/L 21.0-32.0 [facility] Work Phone: Globulin (S) [Mass/Vol] 3.7 g/dL 2.2-4.2 [facility] Work Phone: Urea nitrogen/Creatinine [Mass ratio] 26.0 mg/mg 10-20 [facility] Work Phone: Laboratory - Hematology and Cell countson 04-22-2022 Erythrocyte distribution width (RBC) [Entitic vol] 43.3 fL 35.1-43.9 [facility] Work Phone: Erythrocyte distribution width (RBC) [Ratio] 12.8 % 11.6-14.6 [facility] Work Phone: Immature granulocytes/100 WBC (Bld) 0.200 % 0.0-0.9 [facility] Work Phone: Comment on above: IG% - Immature Granu locytes (promyelocytes, myelocytes and metamyelocytes) > 1% indicates that a LEFT SHIFT is Present. MCH (RBC) [Entitic mass] 31.0 pg 27.0-32.0 [facility] Work Phone: Nucleated RBC/100 WBC (Bld) [Ratio] 0 % 0-5 [facility] Work Phone: MCHC Auto (RBC) [Mass/Vol]on 04-22-2022 MCHC (RBC) [Mass/Vol] 33.6 g/dL 32-36 [facility] Work Phone: No Panel Informationon 04-22 Estimated GFR (MDRD) Amer 85 mL/min >60 [facility] Work Phone: Comment on above: GFR Calc Estimated GFR (MDRD) Non-Af Amer 70 mL/min >60 [facility] Work Phone: Comment on above: Non- GFR Calc Thyroid Stimulating Hormone (TSH) 1.54 uIU/mL 0.358-3.74 [facility] Work Phone: Platelets bldon 04-22-2022 Platelets (Bld) [#/Vol] 167 10*3/uL 150-450 [facility] Work Phone: Serum or plasma albumin jackie urement (mass/volume)on 04-22-2022 Albumin [Mass/Vol] 3.6 g/dL 3.2-5.0 [facility] Work Phone: Serum or plasma albumin/glob ulin mass ratioon 04-22-2022 Albumin/Globulin [Mass ratio] 1.0 {ratio} 0.9-2.4 [facility] Work Phone: Serum or plasma calcitriol m easurement (mass/volume)on 04-22-2022 1,25-dihydroxyvitamin D3 [Mass/Vol] 43.8 pg/mL 24.8-81.5 [facility] Work Phone: Comment on above: Please note refere nce interval changePerformed at: - Lab[address] [id number] Director: Saray Terry MD, Phone: [phone] Serum or plasma calcium jackie urement (mass/volume)on 06-27-2022 Calcium [Mass/Vol] 9.5 mg/dL 8.5-10.1 [facility] Work Phone: Serum or plasma creatinine m easurement (mass/volume)on 04-22-2022 Creatinine [Mass/Vol] 0.85 mg/dL 0.55-1.02 [facility] Work Phone: Comment on above: The validity of the calculated GFR & GFRAA in patients over 70 years has not been determined. Clinical correlation is essential. Serum or plasma urea nitroge n measurement (mass/volume)on 04-22-2022 Urea nitrogen [Mass/Vol] 22 mg/dL 7-18 [facility] Work Phone: Thin prep Papanicolaou smear with manual screeningon 04-22-2022 Thin prep Papanicolaou smear with manual screening 42 U/L 15-37 [facility] Work Phone: Thin prep Papanicolaou smear with manual screening 6 5-15 [facility] Work Phone: Basophil percentageon 2021 Cholesterol [Mass/Vol] 191 mg/dL <200 [facility] Work Phone: Comment on above: <200 mg/dL Desirable 200-240 mg/dL Borderline >240 mg/dL High Risk Triglyceride [Mass/Vol] 163 mg/dL <199 [facility] Work Phone: Comment on above: The drugs N-Acetylcy steine and Metamizole may falsely depress this assay.Serum Triglycerides Reference Interval Normal <150 mg/dL Borderline high 150 - 199 mg/dL High 200 - 499 mg/dL Very High > or = 500 mg/dL Laboratory - Chemistry and C hemistry - challengeon 01-10-2022 Cobalamin (Vitamin B12) [Mass/Vol] 477 pg/mL 211-911 [facility] Work Phone: Free T4 [Mass/Vol] 1.05 ng/dL 0.76-1.46 [facility] Work Phone: No Panel Informationon 01-10 Thyroid Stimulating Hormone (TSH) 1.74 uIU/mL 0.358-3.74 [facility] Work Phone: Urine Microalbumin/Creatinin e Ratio 23.1 mg/g CRE <30 [facility] Work Phone: Serum or plasma cholesterol in HDL measurement (mass/volume)on 01-10-2022 Cholesterol in HDL [Mass/Vol] 44 mg/dL >40 [facility] Work Phone: Comment on above: The drugs N-Acetylcy steine and Metamizole may falsely depress this assay. Reference Range HDL <40 mg/dL Low HDL Cholesterol HDL >or= 60 mg/dL High HDL Cholesterol Serum or plasma cholesterol in VLDL measurement (mass/volume)on 01-10-2022 Cholesterol in VLDL [Mass/Vol] 33 mg/dL 5-40 [facility] Work Phone: Serum or plasma low density lipoprotein (LDL) cholesterol measurement (mass/volume)on 01-10-2022 Cholesterol in LDL [Mass/Vol] 114 mg/dL 0-130 [facility] Work Phone: Thin prep Papanicolaou smear with manual screeningon 01-10-2022 Thin prep Papanicolaou smear with manual screening 21.4 mg/L NO RANGE EST. [facility] Work Phone: Urine creatinine measurement (mass/volume)on 01-10-2022 Creatinine (U) [Mass/Vol] 92.50 mg/dL NO RANGE EST. [facility] Work Phone: Absolute lymphocyte counton 10-15-2021 Lymphocytes Auto (Unsp spec) [#/Vol] 2.38 10*3/uL 0.83-4.51 [facility] Work Phone: Basophil percentageon 2020 Bilirubin [Mass/Vol] 0.80 mg/dL 0.20-1.00 [facility] Work Phone: Comment on above: For patients on eltr ombopag therapy, use of Dimension [place] TBIL is not recommended. Chloride [Moles/Vol] 104 mmol/L 98-107 [facility] Work Phone: Eosinophils/100 WBC (Bld) 2.5 % 0-5 [facility] Work Phone: Glucose [Mass/Vol] 97 mg/dL 74-106 [facility] Work Phone: Comment on above: Please note revised GLUCOSE reference range effective 2017. Neutrophils (Bld) [#/Vol] 4.0 10*3/uL 2.0-7.7 [facility] Work Phone: Potassium [Moles/Vol] 4.1 mmol/L 3.5-5.1 [facility] Work Phone: Protein [Mass/Vol] 7.0 g/dL 6.4-8.2 [facility] Work Phone: Sodium [Moles/Vol] 142 mmol/L 136-145 [facility] Work Phone: WBC (Bld) [#/Vol] 7.1 10*3/uL 4.4-11.0 [facility] Work Phone: Blood erythrocytes count (nu mber/volume)on 10-15-2021 RBC (Bld) [#/Vol] 4.30 10*6/uL 4.2-5.4 [facility] Work Phone: Blood hemoglobin measurement (mass/volume)on 10-15-2021 Hemoglobin (Bld) [Mass/Vol] 12.8 g/dL 12.0-15.0 [facility] Work Phone: Blood lymphocytes/100 leukoc yteson 10-15-2021 Lymphocytes/100 WBC (Bld) 33.7 % 19-41 [facility] Work Phone: Blood monocytes/100 leukocyt eson 10-15-2021 Monocytes/100 WBC (Bld) 5.8 % 0-10 [facility] Work Phone: Blood platelet mean volumeon 10-15-2021 Platelet mean volume (Bld) [Entitic vol] 10.9 fL 6.2-12.0 [facility] Work Phone: Determination of erythrocyte mean corpuscular volume (MCV)on 10-15-2021 MCV (RBC) [Entitic vol] 92.3 fL 81-99 [facility] Work Phone: Hematocrit Auto (Bld) [Volum e fraction]on 10-15-2021 Hematocrit (Bld) [Volume fraction] 39.7 % 37-47 [facility] Work Phone: Laboratory - Chemistry and C hemistry - challengeon 10-15-2021 ALP [Catalytic activity/Vol] 83 U/L 45-117 [facility] Work Phone: ALT [Catalytic activity/Vol] 35 U/L 13-56 [facility] Work Phone: CO2 [Moles/Vol] 29.0 mmol/L 21.0-32.0 [facility] Work Phone: Globulin (S) [Mass/Vol] 3.9 g/dL 2.2-4.2 [facility] Work Phone: Urea nitrogen/Creatinine [Mass ratio] 22.4 mg/mg 10-20 [facility] Work Phone: Laboratory - Hematology and Cell countson 10-15-2021 Basophils/100 WBC (Unsp spec) 0.7 % 0-1 [facility] Work Phone: Erythrocyte distribution width (RBC) [Entitic vol] 42.9 fL 35.1-43.9 [facility] Work Phone: Erythrocyte distribution width (RBC) [Ratio] 12.8 % 11.6-14.6 [facility] Work Phone: Immature granulocytes/100 WBC (Bld) 0.400 % 0.0-0.9 [facility] Work Phone: Comment on above: IG% - Immature Granu locytes (promyelocytes, myelocytes and metamyelocytes) > 1% indicates that a LEFT SHIFT is Present. MCH (RBC) [Entitic mass] 29.8 pg 27.0-32.0 [facility] Work Phone: Neutrophils/100 WBC (Bld) 56.9 % 47-70 [facility] Work Phone: Nucleated RBC/100 WBC (Bld) [Ratio] 0 % 0-5 [facility] Work Phone: MCHC Auto (RBC) [Mass/Vol]on 10-15-2021 MCHC (RBC) [Mass/Vol] 32.2 g/dL 32-36 [facility] Work Phone: No Panel Informationon 10-15 Estimated GFR (MDRD) Amer 104 mL/min >60 [facility] Work Phone: Comment on above: GFR Calc Estimated GFR (MDRD) Non-Af Amer 86 mL/min >60 [facility] Work Phone: Comment on above: Non- GFR Calc Platelets bldon 10-15-2021 Platelets (Bld) [#/Vol] 195 10*3/uL 150-450 [facility] Work Phone: Serum or plasma albumin jackie urement (mass/volume)on 10-15-2021 Albumin [Mass/Vol] 3.1 g/dL 3.2-5.0 [facility] Work Phone: Serum or plasma albumin/glob ulin mass ratioon 10-15-2021 Albumin/Globulin [Mass ratio] 0.8 {ratio} 0.9-2.4 [facility] Work Phone: Serum or plasma calcium jackie urement (mass/volume)on 10-15-2021 Calcium [Mass/Vol] 9.4 mg/dL 8.5-10.1 [facility] Work Phone: Serum or plasma creatinine m easurement (mass/volume)on 10-15-2021 Creatinine [Mass/Vol] 0.71 mg/dL 0.55-1.02 [facility] Work Phone: Comment on above: The validity of the calculated GFR & GFRAA in patients over 70 years has not been determined. Clinical correlation is essential. Serum or plasma urea nitroge n measurement (mass/volume)on 10-15-2021 Urea nitrogen [Mass/Vol] 16 mg/dL 7-18 [facility] Work Phone: Thin prep Papanicolaou smear with manual screeningon 10-15-2021 Thin prep Papanicolaou smear with manual screening 31 U/L 15-37 [facility] Work Phone: Thin prep Papanicolaou smear with manual screening 9 5-15 [facility] Work Phone: Absolute lymphocyte counton 10-06-2021 Lymphocytes Auto (Unsp spec) [#/Vol] 2.17 10*3/uL 0.83-4.51 [facility] Work Phone: Basophil percentageon 2020 Bilirubin [Mass/Vol] 0.60 mg/dL 0.20-1.00 [facility] Work Phone: Comment on above: For patients on eltr ombopag therapy, use of Dimension [place] TBIL is not recommended. Chloride [Moles/Vol] 108 mmol/L 98-107 [facility] Work Phone: Eosinophils/100 WBC (Bld) 5.4 % 0-5 [facility] Work Phone: Glucose [Mass/Vol] 112 mg/dL 74-106 [facility] Work Phone: Comment on above: Fasting Glucose resu lt from 100 to 125 mg/dL suggests IMPAIRED HOMEOSTASIS per A.D.A. criteria.Please note revised GLUCOSE reference range effective 2017. Neutrophils (Bld) [#/Vol] 3.0 10*3/uL 2.0-7.7 [facility] Work Phone: Potassium [Moles/Vol] 3.3 mmol/L 3.5-5.1 [facility] Work Phone: Protein [Mass/Vol] 6.4 g/dL 6.4-8.2 [facility] Work Phone: Sodium [Moles/Vol] 141 mmol/L 136-145 [facility] Work Phone: WBC (Bld) [#/Vol] 6.4 10*3/uL 4.4-11.0 [facility] Work Phone: Blood erythrocytes count (nu mber/volume)on 10-06-2021 RBC (Bld) [#/Vol] 4.38 10*6/uL 4.2-5.4 [facility] Work Phone: Blood hemoglobin measurement (mass/volume)on 10-06-2021 Hemoglobin (Bld) [Mass/Vol] 13.3 g/dL 12.0-15.0 [facility] Work Phone: Blood lymphocytes/100 leukoc yteson 10-06-2021 Lymphocytes/100 WBC (Bld) 33.7 % 19-41 [facility] Work Phone: Blood monocytes/100 leukocyt eson 10-06-2021 Monocytes/100 WBC (Bld) 12.9 % 0-10 [facility] Work Phone: Blood platelet mean volumeon 10-06-2021 Platelet mean volume (Bld) [Entitic vol] 11.2 fL 6.2-12.0 [facility] Work Phone: Determination of erythrocyte mean corpuscular volume (MCV)on 10-06-2021 MCV (RBC) [Entitic vol] 89.7 fL 81-99 [facility] Work Phone: Hematocrit Auto (Bld) [Volum e fraction]on 10-06-2021 Hematocrit (Bld) [Volume fraction] 39.3 % 37-47 [facility] Work Phone: Laboratory - Chemistry and C hemistry - challengeon 10-06-2021 ALP [Catalytic activity/Vol] 72 U/L 45-117 [facility] Work Phone: ALT [Catalytic activity/Vol] 33 U/L 13-56 [facility] Work Phone: CO2 [Moles/Vol] 27.0 mmol/L 21.0-32.0 [facility] Work Phone: Globulin (S) [Mass/Vol] 3.8 g/dL 2.2-4.2 [facility] Work Phone: Magnesium [Mass/Vol] 1.8 mg/dL 1.6-2.6 [facility] Work Phone: Urea nitrogen/Creatinine [Mass ratio] 35.0 mg/mg 10-20 [facility] Work Phone: Laboratory - Hematology and Cell countson 10-06-2021 Basophils/100 WBC (Unsp spec) 0.6 % 0-1 [facility] Work Phone: Erythrocyte distribution width (RBC) [Entitic vol] 42.4 fL 35.1-43.9 [facility] Work Phone: Erythrocyte distribution width (RBC) [Ratio] 12.7 % 11.6-14.6 [facility] Work Phone: Immature granulocytes/100 WBC (Bld) 0.900 % 0.0-0.9 [facility] Work Phone: Comment on above: IG% - Immature Granu locytes (promyelocytes, myelocytes and metamyelocytes) > 1% indicates that a LEFT SHIFT is Present. MCH (RBC) [Entitic mass] 30.4 pg 27.0-32.0 [facility] Work Phone: Neutrophils/100 WBC (Bld) 46.5 % 47-70 [facility] Work Phone: Nucleated RBC/100 WBC (Bld) [Ratio] 0 % 0-5 [facility] Work Phone: MCHC Auto (RBC) [Mass/Vol]on 10-06-2021 MCHC (RBC) [Mass/Vol] 33.8 g/dL 32-36 [facility] Work Phone: No Panel Informationon 10-06 Estimated Creatinine Clearance Calc 77.88 ml/min [facility] Work Phone: Estimated GFR (MDRD) Amer 68 mL/min >60 [facility] Work Phone: Comment on above: GFR Calc Estimated GFR (MDRD) Non-Af Amer 56 mL/min >60 [facility] Work Phone: Comment on above: Non- GFR Calc Platelets bldon 10-06-2021 Platelets (Bld) [#/Vol] 170 10*3/uL 150-450 [facility] Work Phone: Serum or plasma albumin jackie urement (mass/volume)on 10-06-2021 Albumin [Mass/Vol] 2.6 g/dL 3.2-5.0 [facility] Work Phone: Serum or plasma albumin/glob ulin mass ratioon 10-06-2021 Albumin/Globulin [Mass ratio] 0.7 {ratio} 0.9-2.4 [facility] Work Phone: Serum or plasma calcium jackie urement (mass/volume)on 10-06-2021 Calcium [Mass/Vol] 9.3 mg/dL 8.5-10.1 [facility] Work Phone: Serum or plasma creatinine m easurement (mass/volume)on 10-06-2021 Creatinine [Mass/Vol] 1.03 mg/dL 0.55-1.02 [facility] Work Phone: Comment on above: The validity of the calculated GFR & GFRAA in patients over 70 years has not been determined. Clinical correlation is essential. Serum or plasma urea nitroge n measurement (mass/volume)on 10-06-2021 Urea nitrogen [Mass/Vol] 36 mg/dL 7-18 [facility] Work Phone: Thin prep Papanicolaou smear with manual screeningon 10-06-2021 Thin prep Papanicolaou smear with manual screening 33 U/L 15-37 [facility] Work Phone: Thin prep Papanicolaou smear with manual screening 6 5-15 [facility] Work Phone: Absolute lymphocyte counton 10-04-2021 Lymphocytes Auto (Unsp spec) [#/Vol] 1.89 10*3/uL 0.83-4.51 [facility] Work Phone: Basophil percentageon 2020 Basophil percentage 5-10 SEEN /hpf [facility] Work Phone: Bilirubin [Mass/Vol] 1.10 mg/dL 0.20-1.00 [facility] Work Phone: Comment on above: For patients on eltr ombopag therapy, use of Dimension [place] TBIL is not recommended. Chloride [Moles/Vol] 99 mmol/L 98-107 [facility] Work Phone: Eosinophils/100 WBC (Bld) 0.6 % 0-5 [facility] Work Phone: Glucose [Mass/Vol] 135 mg/dL 74-106 [facility] Work Phone: Comment on above: Fasting Glucose resu lt greater than or equal to 126 mg/dL suggests DIABETES MELLITUS per A.D.A. criteria.Please note revised GLUCOSE reference range effective 2017. Neutrophils (Bld) [#/Vol] 5.3 10*3/uL 2.0-7.7 [facility] Work Phone: Potassium [Moles/Vol] 3.1 mmol/L 3.5-5.1 [facility] Work Phone: Protein [Mass/Vol] 7.8 g/dL 6.4-8.2 [facility] Work Phone: Sodium [Moles/Vol] 135 mmol/L 136-145 [facility] Work Phone: [phone] WBC (Bld) [#/Vol] 8.7 10*3/uL 4.4-11.0 [facility] Work Phone: Bilirubin Test strip Ql (U)o n 10-04-2021 Bilirubin Ql (U) 6 mg/dL Negative [facility] Work Phone: Comment on above: COLOR OF URINE MAY A FFECT DIPSTICK RESULTS. Blood erythrocytes count (nu mber/volume)on 10-04-2021 RBC (Bld) [#/Vol] 5.20 10*6/uL 4.2-5.4 [facility] Work Phone: Blood hemoglobin measurement (mass/volume)on 10-04-2021 Hemoglobin (Bld) [Mass/Vol] 15.5 g/dL 12.0-15.0 [facility] Work Phone: Blood lymphocytes/100 leukoc yteson 10-04-2021 Lymphocytes/100 WBC (Bld) 21.8 % 19-41 [facility] Work Phone: Blood manual differential co mment interpretation (narrative result)on 10-04-2021 Manual differential comment Terrence (Bld) [Interp] SEE COMMENT [facility] Work Phone: Comment on above: MONOCYTOSIS NOTED Blood monocytes/100 leukocyt eson 10-04-2021 Monocytes/100 WBC (Bld) 15.1 % 0-10 [facility] Work Phone: Blood platelet adequacy dete ction by light microscopyon 10-04-2021 Platelets LM Ql (Bld) ADEQUATE ADEQ [facility] Work Phone: Blood platelet mean volumeon 10-04-2021 Platelet mean volume (Bld) [Entitic vol] 11.3 fL 6.2-12.0 [facility] Work Phone: Determination of erythrocyte mean corpuscular volume (MCV)on 10-04-2021 MCV (RBC) [Entitic vol] 89.4 fL 81-99 [facility] Work Phone: Hematocrit Auto (Bld) [Volum e fraction]on 10-04-2021 Hematocrit (Bld) [Volume fraction] 46.5 % 37-47 [facility] Work Phone: Ketones Test strip Ql (U)on 10-04-2021 Ketones Ql (U) 5 mg/dl Negative [facility] Work Phone: Laboratory - Chemistry and C hemistry - challengeon 10-04-2021 ALP [Catalytic activity/Vol] 86 U/L 45-117 [facility] Work Phone: ALT [Catalytic activity/Vol] 26 U/L 13-56 [facility] Work Phone: [phone] CO2 [Moles/Vol] 27.0 mmol/L 21.0-32.0 [facility] Work Phone: Free T4 [Mass/Vol] 1.45 ng/dL 0.76-1.46 [facility] Work Phone: Globulin (S) [Mass/Vol] 4.8 g/dL 2.2-4.2 [facility] Work Phone: Lipase [Catalytic activity/Vol] 235 U/L 73-393 [facility] Work Phone: Urea nitrogen/Creatinine [Mass ratio] 22.9 mg/mg 10-20 [facility] Work Phone: Laboratory - Hematology and Cell countson 10-04-2021 Anisocytosis Ql (Bld) RARE [facility] Work Phone: Basophils/100 WBC (Unsp spec) 0.6 % 0-1 [facility] Work Phone: Erythrocyte distribution width (RBC) [Entitic vol] 42.9 fL 35.1-43.9 [facility] Work Phone: [phone] Erythrocyte distribution width (RBC) [Ratio] 13.0 % 11.6-14.6 [facility] Work Phone: Immature granulocytes/100 WBC (Bld) 0.500 % 0.0-0.9 [facility] Work Phone: Comment on above: IG% - Immature Granu locytes (promyelocytes, myelocytes and metamyelocytes) > 1% indicates that a LEFT SHIFT is Present. MCH (RBC) [Entitic mass] 29.8 pg 27.0-32.0 [facility] Work Phone: Neutrophils/100 WBC (Bld) 61.4 % 47-70 [facility] Work Phone: Nucleated RBC/100 WBC (Bld) [Ratio] 0 % 0-5 [facility] Work Phone: MCHC Auto (RBC) [Mass/Vol]on 10-04-2021 MCHC (RBC) [Mass/Vol] 33.3 g/dL 32-36 [facility] Work Phone: Macrocytes detectionon 10-04 Macrocytes Ql (Bld) RARE [facility] Work Phone: Mucus LM Ql (Urine sed)on Mucus Ql (Urine sed) 0 SEEN /hpf [facility] Work Phone: Nitrite Test strip Ql (U)on 10-04-2021 Nitrite Ql (U) Positive Negative [facility] Work Phone: No Panel Informationon 10-04 Estimated GFR (MDRD) Amer 46 mL/min >60 [facility] Work Phone: Comment on above: GFR Calc Estimated GFR (MDRD) Non-Af Amer 38 mL/min >60 [facility] Work Phone: Comment on above: Non- GFR Calc Thyroid Stimulating Hormone (TSH) 1.92 uIU/mL 0.358-3.74 [facility] Work Phone: Platelets bldon 10-04-2021 Platelets (Bld) [#/Vol] 174 10*3/uL 150-450 [facility] Work Phone: Protein Test strip Ql (U)on 10-04-2021 Protein Ql (U) 100 mg/dl Negative [facility] Work Phone: RBC morphologyon 10-04-2021 RBC morphology finding Nom (Bld) N CHROM NORMAL NORM C&C [facility] Work Phone: Serum or plasma albumin jackie urement (mass/volume)on 10-04-2021 Albumin [Mass/Vol] 3.0 g/dL 3.2-5.0 [facility] Work Phone: Serum or plasma albumin/glob ulin mass ratioon 10-04-2021 Albumin/Globulin [Mass ratio] 0.6 {ratio} 0.9-2.4 [facility] Work Phone: Serum or plasma calcium jackie urement (mass/volume)on 10-04-2021 Calcium [Mass/Vol] 9.3 mg/dL 8.5-10.1 [facility] Work Phone: Serum or plasma creatinine m easurement (mass/volume)on 10-04-2021 Creatinine [Mass/Vol] 1.44 mg/dL 0.55-1.02 [facility] Work Phone: Comment on above: The validity of the calculated GFR & GFRAA in patients over 70 years has not been determined. Clinical correlation is essential. Serum or plasma urea nitroge n measurement (mass/volume)on 10-04-2021 Urea nitrogen [Mass/Vol] 33 mg/dL 7-18 [facility] Work Phone: Squamous epithelial cells de tection in urine sediment by light microscopyon 10-04-2021 Epithelial cells.squamous LM Ql (Urine sed) 10-25 SEEN /hpf [facility] Work Phone: Thin prep Papanicolaou smear with manual screeningon 10-04-2021 Thin prep Papanicolaou smear with manual screening 27 U/L 15-37 [facility] Work Phone: Thin prep Papanicolaou smear with manual screening 9 5-15 [facility] Work Phone: Urine blood detectionon 12- RBC Ql (U) 25 /ul Negative [facility] Work Phone: RBC Ql (U) 0-5 SEEN /hpf [facility] Work Phone: Urine clarityon 10-04-2021 Clarity (U) Cloudy Clear [facility] Work Phone: Urine color determinationon 10-04-2021 Color (U) Vidhya Yellow [facility] Work Phone: Urine glucose detectionon Glucose Ql (U) 50 mg/dl Normal [facility] Work Phone: Urine leukocyte esterase det ection by dipstickon 10-04-2021 Leukocyte esterase Test strip Ql (U) 500 /ul Negative [facility] Work Phone: Urine pHon 10-04-2021 pH (U) 5.0 [pH] [facility] Work Phone: Urine sediment bacteria coun t by microscopy (number/high power field)on 10-04-2021 Bacteria LM.HPF (Urine sed) [#/Area] 1 /[HPF] None Seen [facility] Work Phone: Urine specific gravity measu rementon 10-04-2021 Specific gravity (U) [Rel density] 1.030 [facility] Work Phone: Urobilinogen Auto test strip Ql (U)on 10-04-2021 Urobilinogen Ql (U) 4 mg/dl Normal [facility] Work Phone: Ferritinon 12-19-2020 Ferritin [Mass/Vol] 245.0 ng/mL High 14.7-205.1 [facility] Comment on above: Performed By: #### H BA1C, SERFOL, RETIC, B12, FERR #### [facility]ine [facility] [address], [place] [id number] Folate, Serumon 12-19-2020 Folate [Mass/Vol] 18.3 ng/mL Normal >4.[address] [facility] Comment on above: Performed By: #### H BA1C, SERFOL, RETIC, B12, FERR #### [facility] Routine Lab [address] [place], [place] [address] Hemoglobin A1con 12-19-2020 HbA1c (Bld) [Mass fraction] 131 mg/dL Normal [facility] Comment on above: Performed By: #### H BA1C, SERFOL, RETIC, B12, FERR #### [facility] Routine Lab [address] [place], [place] [id number] HbA1c (Bld) [Mass fraction] 6.2 % High 4.3-5.6 [facility] Comment on above: Performed By: #### H BA1C, SERFOL, RETIC, B12, FERR #### [facility] [address], [place] [address] Reticulocyteon 12-19-2020 Abs Retic 0.087 M/uL Normal 0.0180-0.1 000 [facility] Comment on above: Performed By: #### H BA1C, SERFOL, RETIC, B12, FERR #### [facility] [address], [place] [address] Retic% 1.9 % Normal 0.4-2.0 [facility] Comment on above: Performed By: #### H BA1C, SERFOL, RETIC, B12, FERR #### [facility] [address] [place] [address] Vitamin B12on 12-19-2020 Cobalamin (Vitamin B12) [Mass/Vol] 573 pg/mL Normal 232-1245 [facility] Comment on above: Performed By: #### H BA1C, SERFOL, RETIC, B12, FERR #### [facility] [address] [place] [id number] CBC and Differentialon 03-01 Abs Baso 0.03 k/uL Normal <0.11 [facility] Comment on above: Performed By: #### C BCDIF, TSH, LIPB, CMP, VITD, HBA1C, FT4 #### [facility] [address], [place] [address] Abs Cascade 0.45 k/uL Normal <0.87 [facility] Comment on above: Performed By: #### C BCDIF, TSH, LIPB, CMP, VITD, HBA1C, FT4 #### [facility] [address] [place], [place] [address] Abs Neut 3.44 k/uL Normal 1.45-7.50 [facility] Comment on above: Performed By: #### C BCDIF, TSH, LIPB, CMP, VITD, HBA1C, FT4 #### [facility] [address] [place], [place] [address] Absolute nRBC <0.01 Normal <0.01 [facility] Comment on above: Performed By: #### C BCDIF, TSH, LIPB, CMP, VITD, HBA1C, FT4 #### [facility] [address] [address] Basophils/100 WBC (Bld) 0.5 % Normal [facility] Reference Lab Comment on above: Performed By: #### C BCDIF, TSH, LIPB, CMP, VITD, HBA1C, FT4 #### [facility] [address] [place] [address] DTYPE ADIFF Normal [facility] Reference Lab Comment on above: Performed By: #### C BCDIF, TSH, LIPB, CMP, VITD, HBA1C, FT4 #### [facility] [address] [place] [address] Eosinophils (Bld) [#/Vol] 0.24 10*3/uL Normal <0.46 [facility] Reference [facility] Comment on above: Performed By: #### C BCDIF, TSH, LIPB, CMP, VITD, HBA1C, FT4 #### [facility] [address] [place], [place] [address] Eosinophils/100 WBC (Bld) 3.9 % Normal [facility] Reference Lab Comment on above: Performed By: #### C BCDIF, TSH, LIPB, CMP, VITD, HBA1C, FT4 #### [facility] [address] [place], [place] [address] Erythrocyte distribution width (RBC) [Ratio] 12.8 % Normal 11.5-15.0 [facility] Comment on above: Performed By: #### C BCDIF, TSH, LIPB, CMP, VITD, HBA1C, FT4 #### [facility] [address] [address] Hematocrit (Bld) [Volume fraction] 45.6 % Normal 36.0-46.0 [facility] Comment on above: Performed By: #### C BCDIF, TSH, LIPB, CMP, VITD, HBA1C, FT4 #### [facility] [address] [address] Hemoglobin (Bld) [Mass/Vol] 14.4 g/dL Normal 11.5-15.5 [facility] Comment on above: Performed By: #### C BCDIF, TSH, LIPB, CMP, VITD, HBA1C, FT4 #### [facility] [address] [place] [address] Lymphocytes (Bld) [#/Vol] 1.96 10*3/uL Normal 1.00-4.00 [facility] Comment on above: Performed By: #### C BCDIF, TSH, LIPB, CMP, VITD, HBA1C, FT4 #### [facility] [address] [address] Lymphocytes/100 WBC (Bld) 32.0 % Normal [facility] Comment on above: Performed By: #### C BCDIF, TSH, LIPB, CMP, VITD, HBA1C, FT4 #### [facility] [address] [address] MCH (RBC) [Entitic mass] 30.4 pG Normal 26.0-34.0 [facility] Comment on above: Performed By: #### C BCDIF, TSH, LIPB, CMP, VITD, HBA1C, FT4 #### [facility] [address] [place], [place] [address] MCHC (RBC) [Mass/Vol] 31.6 g/dL Normal 30.5-36.0 [facility] Reference Lab Comment on above: Performed By: #### C BCDIF, TSH, LIPB, CMP, VITD, HBA1C, FT4 #### [facility] [address] [place], [place] [address] MCV (RBC) [Entitic vol] 96.2 fL Normal 80.0-100.0 [facility] Comment on above: Performed By: #### C BCDIF, TSH, LIPB, CMP, VITD, HBA1C, FT4 #### [facility] [address] [place], [place] [address] Monocytes/100 WBC (Bld) 7.4 % Normal [facility] Comment on above: Performed By: #### C BCDIF, TSH, LIPB, CMP, VITD, HBA1C, FT4 #### [facility] [address] [address] Neutrophils/100 WBC (Bld) 56.2 % Normal [facility] Comment on above: Performed By: #### C BCDIF, TSH, LIPB, CMP, VITD, HBA1C, FT4 #### [facility] [address] [place], [place] [address] NRBCs 0.0 /100 WBC Normal 0 [facility] Comment on above: Performed By: #### C BCDIF, TSH, LIPB, CMP, VITD, HBA1C, FT4 #### [facility] [address] [place], [place] [address] Platelet mean volume (Bld) [Entitic vol] 12.0 fL Normal 9.0-12.7 [facility] Comment on above: Performed By: #### C BCDIF, TSH, LIPB, CMP, VITD, HBA1C, FT4 #### [facility] [address] [place], [place] [address] Platelets (Bld) [#/Vol] 178 10*3/uL Normal 150-400 [facility] Lab Comment on above: Performed By: #### C BCDIF, TSH, LIPB, CMP, VITD, HBA1C, FT4 #### [facility] [address] [address] RBC (Bld) [#/Vol] 4.74 10*6/uL Normal 3.90-5.20 [facility] Lab Comment on above: Performed By: #### C BCDIF, TSH, LIPB, CMP, VITD, HBA1C, FT4 #### [facility] [address] [address] WBC (Bld) [#/Vol] 6.12 10*3/uL Normal 3.70-11.00 [facility] Reference Lab Comment on above: Performed By: #### C BCDIF, TSH, LIPB, CMP, VITD, HBA1C, FT4 #### [facility] [address] [address] Comp Metabolic Panelon 03-01 Albumin [Mass/Vol] 4.2 g/dL Normal 3.9-4.9 [facility] Lab Comment on above: Performed By: #### C BCDIF, TSH, LIPB, CMP, VITD, HBA1C, FT4 #### [facility] [address] [address] ALP [Catalytic activity/Vol] 83 U/L Normal 34-123 [facility] Comment on above: Performed By: #### C BCDIF, TSH, LIPB, CMP, VITD, HBA1C, FT4 #### [facility] [address] [address] ALT [Catalytic activity/Vol] 28 U/L Normal 7-38 [facility] Comment on above: Performed By: #### C BCDIF, TSH, LIPB, CMP, VITD, HBA1C, FT4 #### [facility] [address] [address] Anion gap [Moles/Vol] 14 mmol/L Normal 9-18 [facility] Reference Lab Comment on above: Performed By: #### C BCDIF, TSH, LIPB, CMP, VITD, HBA1C, FT4 #### [facility] [address] [address] AST [Catalytic activity/Vol] 32 U/L Normal 13-35 [facility] Lab Comment on above: Performed By: #### C BCDIF, TSH, LIPB, CMP, VITD, HBA1C, FT4 #### [facility] [address] [address] Bilirubin Ql (U) 0.5 mg/dL Normal 0.2-1.3 [facility] Reference Lab Comment on above: Performed By: #### C BCDIF, TSH, LIPB, CMP, VITD, HBA1C, FT4 #### [facility] [address] [address] Calcium [Mass/Vol] 10.2 mg/dL Normal 8.5-10.2 [facility] Reference Lab Comment on above: Performed By: #### C BCDIF, TSH, LIPB, CMP, VITD, HBA1C, FT4 #### [facility] [address] [address] Chloride [Moles/Vol] 104 mmol/L Normal 97-105 [facility] Reference Lab Comment on above: Performed By: #### C BCDIF, TSH, LIPB, CMP, VITD, HBA1C, FT4 #### [facility] [address] [address] CO2 [Moles/Vol] 25 mmol/L Normal 22-30 [facility] Lab Comment on above: Performed By: #### C BCDIF, TSH, LIPB, CMP, VITD, HBA1C, FT4 #### [facility] [address] [address] Creatinine [Mass/Vol] 0.72 mg/dL Normal 0.58-0.96 [facility] Reference Lab Comment on above: Performed By: #### C BCDIF, TSH, LIPB, CMP, VITD, HBA1C, FT4 #### [facility] [address] [place], [place] [address] eGFR- Amer. >60 Normal [facility] Reference Lab Comment on above: Performed By: #### C BCDIF, TSH, LIPB, CMP, VITD, HBA1C, FT4 #### [facility] [address] [place], [place] [address] GFR/1.73 sq M predicted among non-blacks MDRD (S/P/Bld) [Vol rate/Area] mL/min/{1.73_m2} Normal [facility] Reference Lab Comment on above: Performed By: #### C BCDIF, TSH, LIPB, CMP, VITD, HBA1C, FT4 #### [facility] [address] [place], [place] [address] Glucose [Mass/Vol] 118 mg/dL High 74-99 [facility] Reference Lab Comment on above: Performed By: #### C BCDIF, TSH, LIPB, CMP, VITD, HBA1C, FT4 #### [facility] [address] [place], [place] [address] Potassium [Moles/Vol] 4.3 mmol/L Normal 3.7-5.1 [facility] Reference Lab Comment on above: Performed By: #### C BCDIF, TSH, LIPB, CMP, VITD, HBA1C, FT4 #### [facility] [address] [place], [place] [address] Protein [Mass/Vol] 7.2 g/dL Normal 6.3-8.0 [facility] Reference Lab Comment on above: Performed By: #### C BCDIF, TSH, LIPB, CMP, VITD, HBA1C, FT4 #### [facility] [address] [place], [place] [address] Sodium [Moles/Vol] 143 mmol/L Normal 136-144 [facility] Reference Lab Comment on above: Performed By: #### C BCDIF, TSH, LIPB, CMP, VITD, HBA1C, FT4 #### [facility] [address] [place] [address] Urea nitrogen [Mass/Vol] 24 mg/dL High 7-21 [facility] Lab Comment on above: Performed By: #### C BCDIF, TSH, LIPB, CMP, VITD, HBA1C, FT4 #### [facility] [address] [place] [address] Free T4on 03-01-2020 Free T4 [Mass/Vol] 1.1 ng/dL Normal 0.9-1.7 [facility] Reference Lab Comment on above: Performed By: #### C BCDIF, TSH, LIPB, CMP, VITD, HBA1C, FT4 #### [facility] [address] [place] [address] Hemoglobin A1con 03-01-2020 HbA1c (Bld) [Mass fraction] 5.8 % High 4.3-5.6 [facility] Reference Lab Comment on above: Performed By: #### H BA1C, SERFOL, RETIC, B12, FERR #### [facility] [address] [place] [id number] HbA1c (Bld) [Mass fraction] 120 mg/dL Normal [facility] Reference Lab Comment on above: Performed By: #### H BA1C, SERFOL, RETIC, B12, FERR #### [facility] [address] [place], [place] [address] Lipid Panel, Basicon 020 Cholesterol [Mass/Vol] 198 mg/dL Normal <200 [facility] Reference Lab Comment on above: Performed By: #### C BCDIF, TSH, LIPB, CMP, VITD, HBA1C, FT4 #### [facility] [address] [place], [place] [address] Cholesterol in HDL [Mass/Vol] 41 mg/dL Normal >39 [facility] Reference Lab Comment on above: Performed By: #### C BCDIF, TSH, LIPB, CMP, VITD, HBA1C, FT4 #### [facility] Rout[facility] [address] [place], [place] [address] Cholesterol in LDL [Mass/Vol] 126 mg/dL High <100 [facility] Reference Lab Comment on above: Performed By: #### C BCDIF, TSH, LIPB, CMP, VITD, HBA1C, FT4 #### [facility] [address] [place], [place] [address] Cholesterol in VLDL [Mass/Vol] 31 mg/dL High <30 [facility] Reference Lab Comment on above: Performed By: #### C BCDIF, TSH, LIPB, CMP, VITD, HBA1C, FT4 #### [facility] [address] [place], [place] [address] Cholesterol non HDL [Mass/Vol] 157 mg/dL High <130 [facility] Reference Lab Comment on above: Performed By: #### C BCDIF, TSH, LIPB, CMP, VITD, HBA1C, FT4 #### [facility] [address] [place], [place] [address] LDL:HDL Ratio 3.07 High <2.54 [facility] Reference Lab Comment on above: Performed By: #### C BCDIF, TSH, LIPB, CMP, VITD, HBA1C, FT4 #### [facility] [address] [place], [place] [address] TC:HDL Ratio 4.83 Normal <5.10 [facility] Reference Lab Comment on above: Performed By: #### C BCDIF, TSH, LIPB, CMP, VITD, HBA1C, FT4 #### [facility] [address] [place], [place] [address] Triglyceride [Mass/Vol] 156 mg/dL High <150 [facility] Reference Lab Comment on above: Performed By: #### C BCDIF, TSH, LIPB, CMP, VITD, HBA1C, FT4 #### [facility] [address], [place] [id number] TSHon 03-01-2020 TSH Qn 2.250 uU/mL Normal 0.270-4.20 0 [facility] Reference Lab Comment on above: Performed By: #### C BCDIF, TSH, LIPB, CMP, VITD, HBA1C, FT4 #### [facility] [address] [address] Vitamin D 25 Hydroxyon 03-01 Vitamin D 25 Hydroxy 82.2 ng/mL High 31.0-80.0 [facility] Reference Lab Comment on above: Performed By: #### H BA1C, SERFOL, RETIC, B12, FERR #### [facility] [address] [address] Lipid Panel, Basicon 020 Fasting Time 12 hrs Normal [facility] Reference Lab Comment on above: Performed By: #### C BCDIF, TSH, LIPB, CMP, VITD, HBA1C, FT4 #### [facility] [address] [id number] Erythrocyte distribution wid th standard deviationon 01-27-2019 Erythrocyte distribution width (RBC) [Entitic vol] 43.8 fL 35.1-43.9 [facility] - Hematology and Cell countson 01-27-2019 Erythrocyte distribution width (RBC) [Ratio] 13.1 % 11.6-14.6 [facility] Total cell counton 9 Cells counted Molgen (Bld/Tiss) [#] Not Reportable [facility] CYTOLOGYon 06-02-2018 CYTOLOGY ADDITIONAL PROCEDURES PRESENT Specimen #: [id number] Physician: CARLA MEJÍA SUBMITTEDA: VAGINAL WALL, SCREENING, FLUID FINAL DIAGNOSISA. VAGINAL WALL, SCREENING, FLUIDSatisfactory for interpretation.Negative for intraepithelial lesion or malignancy.This specimen has been analyzed by the ThinPrep Imaging System, anautStemPar Sciencesed imaging and review system, which assists the laboratory inevaluating cells on ThinPrep Pap tests. Following automated imaging,selected hernandez from every slide are reviewed by a mental health social worker.JEN Chatterjee(ASCP) (Electronic Signature) ADDITIONAL PROCEDURE(S)HUMAN PAPILLOMA VIRUS Date Ordered: 06/03/2018 Date Reported: 06/04/2018 Procedure Results and InterpretationNegative for HPV DNA high risk type 16 by PCR.Negative for HPV DNA high risk type 18 by PCR.Negative for HPV DNA high risk types: 31,33,35,39,45,51,52,56,58, 59,66,68by PCR.This test was developed and its performance characteristics determined by[facility] ([facility]).It [...] GYNJennifer Carlos Rain, Laboratory DirectorPatient ID #: [id number] of Report: 06/08/2018Date of Procedure: 06/02/2018Date of Receipt: 06/03/2018Submitted by: NIESHA MEJÍACLocation: Diagnostic interpretation performed at [facility], [address] [place] [address].The Pap Smear is a screening test for cervical cancer. False negativeresults occur with all screening tests, emphasizing the need forrescreening at recommended intervals, and clinical correlation. Normal [facility] Reference Lab Comment on above: Performed By: #### C ####See report for performing lab information. Vital Signs Date Time Vital Sign Value Performing Clinician Facility 04-20-2025 09:56-0400 Body height 149.86 cm Lucita Agarwal NP-C Work Phone: 2(825)194-490486 [place] [address] 04-20-2025 09:56-0400 Body mass index (BMI) [Ratio] 39.9 kg/m2 Lucita Agarwal NP-C Work Phone: 6(122)701-299786 [place] [address] 04-20-2025 09:56-0400 Body weight 89.81 kg Lucita Agarwal NP-C Work Phone: 3(487)195-540596 [address] 04-20-2025 09:56-0400 Diastolic blood pressure 82 mm[Hg] Lucita Agarwal NP-C Work Phone: 1(425)682-868786 [place] [address] 04-20-2025 09:56-0400 Heart rate 86 /min Lucita Agarwal NP-C Work Phone: 3(886)281-439486 [place] [address] 04-20-2025 09:56-0400 Respiratory rate 17 /min Lucita Agarwal NP-C Work Phone: 2(851)415-213786 [place] [address] 04-20-2025 09:56-0400 SaO2% (BldA) [Mass fraction] 93 % Lucita Agarwal NP-C Work Phone: 3(110)062-622518 [place] [address] 04-20-2025 09:56-0400 Systolic blood pressure 147 mm[Hg] Lucita Agarwal [employer]ANDING MACHINE TENDER-C Work Phone: 4(558)178-135718 [place] [address] 03-18-2025 12:28-0400 Body height 149.86 cm Lucita Agarwal [employer]ANDING MACHINE TENDER-C Work Phone: 5(055)710-414618 [place] [address] 03-18-2025 12:28-0400 Body mass index (BMI) [Ratio] 39.9 kg/m2 Lucita Agarwal [employer]ING MACHINE TEND[employer]-C Work Phone: 7(683)679-429818 [place] [address] 03-18-2025 12:28-0400 Body temperature 97.1 [degF] Lucita Agarwal [employer]ANDING MACHINE TENDER-C Work Phone: 9(647)855-401418 [place] [address] 03-18-2025 12:28-0400 Body weight 89.58 kg Lucita Agarwal [employer]ANDING MACHINE TENDER-C Work Phone: 1(431)499-262918 [place] [address] 03-18-2025 12:28-0400 Diastolic blood pressure 81 mm[Hg] Lucita Agarwal SANDING MACHINE TENDER-C Work Phone: 4(918)822-923018 [place] [address] 03-18-2025 12:28-0400 Heart rate 52 /min Lucitaminnie Agarwal SANDING MACHINE TENDER-C Work Phone: 6(355)554-888818 [place] [address] 03-18-2025 12:28-0400 Respiratory rate 18 /min Lucita Agarwal SANDING MACHINE TENDER-C Work Phone: 5(371)551-10[address] [place] [address] 03-18-2025 12:28-0400 SaO2% (BldA) [Mass fraction] 97 % Lucita Agarwal SANDING MACHINE TENDER-C Work Phone: 8(242)998-781118 [place] [address] 03-18-2025 12:28-0400 Systolic blood pressure 142 mm[Hg] Lucita Agarwal SANDING MACHINE TENDER-C Work Phone: 7(597)885-213018 [place] [address] 02-03-2025 11:50-0400 Body temperature 98.3 [degF] Lucita Agarwal SANDING MACHINE TENDER-C Work Phone: 2(030)616-424518 [place] [address] 02-03-2025 11:50-0400 Diastolic blood pressure 60 mm[Hg] Lucita Agarwal SANDING MACHINE TENDER-C Work Phone: 5(616)913-865118 [place] [address] 02-03-2025 11:50-0400 Heart rate 72 /min Lucita Agarwal [employer]ANDING MACHINE T[employer]ER-C Work Phone: 4(274)033-801418 [place] [address] 02-03-2025 11:50-0400 Respiratory rate 16 /min Lucita Agarwal SANDING MACHINE T[employer]ER-C Work Phone: 2(834)113-208218 [place] [address] 02-03-2025 11:50-0400 SaO2% (BldA) [Mass fraction] 96 % Lucita Agarwal SANDING MACHINE TENDER-C Work Phone: 1(556)448-450718 [place] [address] 02-03-2025 11:50-0400 Systolic blood pressure 100 mm[Hg] Lucita Agarwal SANDING MACHINE TENDER-C Work Phone: 6(194)959-562218 [place] [address] 12-09-2024 15:20-0500 Body height 149.86 cm Lucita Agarwal SANDING MACHINE TENDER-C Work Phone: 3(582)871-664518 [place] [address] 12-09-2024 15:20-0500 Body mass index (BMI) [Ratio] 42.4 kg/m2 Lucita Agarwal [employer]ANDING MACHINE TENDER-C Work Phone: 7(481)772-286518 [place] [address] 12-09-2024 15:20-0500 Body weight 95.25 kg Lucita Agarwal SANDING MACHINE TENDER-C Work Phone: 5(866)637-034718 [place] [address] 12-09-2024 15:20-0500 Diastolic blood pressure 77 mm[Hg] Lucita Agarwal SANDING MACHINE TENDER-C Work Phone: 0(961)025-761518 [place] [address] 12-09-2024 15:20-0500 Heart rate 76 /min Lucita Agarwal [employer]ANDING MACHINE T[employer]ER-C Work Phone: 5(585)726-321018 [place] [address] 12-09-2024 15:20-0500 Respiratory rate 18 /min Lucita Agarwal [employer]ANDING MACHINE TENDER-C Work Phone: 9(753)723-258018 [place] [address] 12-09-2024 15:20-0500 Systolic blood pressure 127 mm[Hg] Lucita Agarwal SANDING MACHINE TENDER-C Work Phone: 4(555)159-277418 [place] [address] 09-28-2024 15:16-0500 Body mass index (BMI) [Ratio] 42.6 kg/m2 Lucita Agarwal SANDING MACHINE TENDER-C Work Phone: 0(452)214-433318 [place] [address] 09-28-2024 15:16-0500 Body weight 95.7 kg Lucita Agarwal SANDING MACHINE T[employer]ER-C Work Phone: 0(214)802-523218 [place] [address] 09-28-2024 15:16-0500 Diastolic blood pressure 66 mm[Hg] Lucita Agarwal SANDING MACHINE TENDER-C Work Phone: 4(189)700-320618 [place] [address] 09-28-2024 15:16-0500 Heart rate 49 /min Lucita Agarwal SANDING MACHINE TENDER-C Work Phone: 8(272)956-103518 [place] [address] 09-28-2024 15:16-0500 Respiratory rate 16 /min Lucita Agarwal SANDING MACHINE TENDER-C Work Phone: 5(243)027-940018 [place] [address] 09-28-2024 15:16-0500 Systolic blood pressure 126 mm[Hg] Lucita Agarwal SANDING MACHINE TENDER-C Work Phone: 5(784)805-318318 [place] [address] 09-21-2024 09:24-0500 Body temperature 97.8 [degF] Lucita Agarwal SANDING MACHINE TENDER-C Work Phone: 0(878)183-070018 [place] [address] 09-21-2024 09:24-0500 Diastolic blood pressure 69 mm[Hg] Lucita Agarwal SANDING MACHINE TENDER-C Work Phone: 2(535)530-452918 [place] [address] 09-21-2024 09:24-0500 Heart rate 77 /min Lucita Agarwal [employer]ANDING MACHINE T[employer]ER-[employer] Work Phone: 5(704)869-027018 [place] [address] 09-21-2024 09:24-0500 Respiratory rate 18 /min Lucita Agarwal SANDING MACHINE TENDER-C Work Phone: 3(278)256-844218 [place] [address] 09-21-2024 09:24-0500 SaO2% (BldA) [Mass fraction] 97 % Lucita Agarwal SANDING MACHINE TENDER-C Work Phone: 4(600)706-067318 [place] [address] 09-21-2024 09:24-0500 Systolic blood pressure 132 mm[Hg] Lucita Agarwal SANDING MACHINE TENDER-C Work Phone: 5(092)663-829018 [place] [address] 09-21-2024 07:10-0500 Body mass index (BMI) [Ratio] 42.5 kg/m2 Lucita Agarwal SANDING MACHINE TENDER-C Work Phone: 6(815)613-516918 [place] [address] 09-21-2024 07:10-0500 Body weight 95.5 kg Lucita BREWER Work Phone: 2(550)111-442818 [place] [address] 03-04-2024 13:19-0400 Body weight 103.64 kg Lucita BREWER Work Phone: 0(481)505-449018 [place] [address] 09-04-2023 13:32-0500 Body height 149.86 cm [facility] Work Phone: 4(648)887-740618 [place] [address] 09-04-2023 13:30-0500 Body mass index (BMI) [Ratio] 44.6 kg/m2 [facility] Work Phone: 1(278)435-539718 [place] [address] 09-04-2023 13:30-0500 Body temperature 97.8 [degF] [facility] Work Phone: 5(356)790-058318 [place] [address] 09-04-2023 13:30-0500 Body weight 100.35 kg [facility] Work Phone: 9(220)336-127418 [place] [address] 09-04-2023 13:30-0500 Diastolic blood pressure 75 mm[Hg] [facility] Work Phone: 4(465)640-312418 [place] [address] 09-04-2023 13:30-0500 Heart rate 66 /min [facility] Work Phone: 2(151)275-555418 [place] [address] 09-04-2023 13:30-0500 Respiratory rate 18 /min [facility] Work Phone: 9(852)647-620618 [place] [address] 09-04-2023 13:30-0500 SaO2% (BldA) [Mass fraction] 97 % [facility] Work Phone: 7(780)286-078718 [place] [address] 09-04-2023 13:30-0500 Systolic blood pressure 121 mm[Hg] [facility] Work Phone: 2(777)252-398918 [place] [address] 03-11-2023 08:36-0400 Body height 149.8 cm Marsha Harris MD Work Phone: [facility] 03-11-2023 08:36-0400 Body mass index (BMI) [Ratio] 49.42 kg/m2 Marsha Harris MD Work Phone: [facility] 03-11-2023 08:36-0400 Body weight 110.9 kg Marsha Harris MD Work Phone: [facility] 03-04-2023 13:58-0400 Body height 149.86 cm [facility] Work Phone: 7(597)982-646418 [place] [address] 03-04-2023 13:58-0400 Body mass index (BMI) [Ratio] 49.3 kg/m2 [facility] Work Phone: 1(522)103-541418 [place] [address] 03-04-2023 13:58-0400 Body temperature 97.9 [degF] [facility] Work Phone: [phone] [place] [address] 03-04-2023 13:58-0400 Body weight 110.78 kg [facility] Work Phone: [phone] [place] [address] 03-04-2023 13:58-0400 Heart rate 52 /min [facility] Work Phone: [phone])[phone] [place] [address] 03-04-2023 13:58-0400 Respiratory rate 16 /min [facility] Work Phone: [phone])[phone] [place] [address] 03-04-2023 13:58-0400 SaO2% (BldA) [Mass fraction] 97 % [facility] Work Phone: [phone] [place] [address] 03-03-2023 08:21-0400 Diastolic blood pressure 79 mm[Hg] Marsha Harris MD Work Phone: [facility] 03-03-2023 08:21-0400 Heart rate 49 /min Marsha Harris MD Work Phone: [facility] 03-03-2023 08:21-0400 Systolic blood pressure 162 mm[Hg] Marsha Harris MD Work Phone: [facility] 01-23-2023 14:27-0400 Body height 149.86 cm [facility] Work Phone: [phone] [place] [address] 01-23-2023 14:27-0400 Body mass index (BMI) [Ratio] 47.5 kg/m2 [facility] Work Phone: [phone] [place] [address] 01-23-2023 14:27-0400 Body weight 106.7 kg [facility] Work Phone: [facility] 01-23-2023 14:27-0400 Diastolic blood pressure 60 mm[Hg] [facility] Work Phone: [facility] 01-23-2023 14:27-0400 Heart rate 60 /min [facility] Work Phone: [facility] 01-23-2023 14:27-0400 Respiratory rate 16 /min [facility] Work Phone: [facility] 01-23-2023 14:27-0400 Systolic blood pressure 116 mm[Hg] [facility] Work Phone: [facility] 12-23-2022 13:20-0500 Diastolic blood pressure 79 mm[Hg] Marsha Harris MD Work Phone: [facility] 12-23-2022 13:20-0500 Heart rate 49 /min Marsha Harris MD Work Phone: [facility] 12-23-2022 13:20-0500 Systolic blood pressure 162 mm[Hg] Marsha Harris MD Work Phone: [facility] 09-25-2022 10:53-0500 Body height 149.86 cm [facility] Work Phone: [facility] Work Phone: 09-25-2022 10:53-0500 Body mass index (BMI) [Ratio] 48 kg/m2 [facility] Work Phone: [facility] Work Phone: 09-25-2022 10:53-0500 Body temperature 98 [degF] [facility] Work Phone: [facility] Work Phone: 09-25-2022 10:53-0500 Body weight 107.95 kg [facility] Work Phone: [facility] Work Phone: 09-25-2022 10:53-0500 Diastolic blood pressure 85 mm[Hg] [facility] Work Phone: [facility] Work Phone: 09-25-2022 10:53-0500 Heart rate 45 /min [facility] Work Phone: [facility] Work Phone: 09-25-2022 10:53-0500 Respiratory rate 16 /min [facility] Work Phone: [facility] Work Phone: 09-25-2022 10:53-0500 SaO2% (BldA) [Mass fraction] 98 % [facility] Work Phone: [facility] Work Phone: 09-25-2022 10:53-0500 Systolic blood pressure 151 mm[Hg] [facility] Work Phone: [facility] Work Phone: 09-11-2022 09:40-0500 Body temperature 97.2 [degF] [facility] Work Phone: [facility] Work Phone: 09-11-2022 09:40-0500 Body weight 107.5 kg [facility] Work Phone: [facility] Work Phone: 09-11-2022 09:40-0500 Diastolic blood pressure 63 mm[Hg] [facility] Work Phone: [facility] Work Phone: 09-11-2022 09:40-0500 Heart rate 50 /min [facility] Work Phone: [facility] Work Phone: 09-11-2022 09:40-0500 Respiratory rate 17 /min [facility] Work Phone: [facility] Work Phone: 09-11-2022 09:40-0500 SaO2% (BldA) [Mass fraction] 99 % [facility] Work Phone: [facility] Work Phone: 09-11-2022 09:40-0500 Systolic blood pressure 155 mm[Hg] [facility] Work Phone: [facility] Work Phone: 09-03-2022 13:05-0500 Body height 149.86 cm [facility] Work Phone: [facility] Work Phone: 09-03-2022 13:05-0500 Body mass index (BMI) [Ratio] 47.9 kg/m2 [facility] Work Phone: [facility] Work Phone: 09-03-2022 13:05-0500 Body temperature 98.2 [degF] [facility] Work Phone: [facility] Work Phone: 09-03-2022 13:05-0500 Body weight 107.55 kg [facility] Work Phone: [facility] Work Phone: 09-03-2022 13:05-0500 Diastolic blood pressure 72 mm[Hg] [facility] Work Phone: [facility] Work Phone: 09-03-2022 13:05-0500 Heart rate 46 /min [facility] Work Phone: [facility] Work Phone: 09-03-2022 13:05-0500 Respiratory rate 18 /min [facility] Work Phone: [facility] Work Phone: 09-03-2022 13:05-0500 SaO2% (BldA) [Mass fraction] 96 % [facility] Work Phone: [facility] Work Phone: 09-03-2022 13:05-0500 Systolic blood pressure 124 mm[Hg] [facility] Work Phone: [facility] Work Phone: 06-04-2022 15:18-0400 Body mass index (BMI) [Ratio] 47.5 kg/m2 [facility] Work Phone: [facility] Work Phone: 06-04-2022 15:18-0400 Body weight 106.59 kg [facility] Work Phone: [facility] Work Phone: 06-04-2022 15:18-0400 Diastolic blood pressure 60 mm[Hg] [facility] Work Phone: [facility] Work Phone: 06-04-2022 15:18-0400 Systolic blood pressure 130 mm[Hg] [facility] Work Phone: [facility] Work Phone: 04-22-2022 14:23-0400 Body height 149.[address] Candice Rossi Work Phone: [facility] Work Phone: 04-22-2022 14:23-0400 Diastolic blood pressure 70 mm[Hg] Dr. Candice Rossi Work Phone: [facility] Work Phone: 04-22-2022 14:23-0400 Systolic blood pressure 160 mm[Hg] Dr. Candice Rossi Work Phone: [facility] Work Phone: 04-22-2022 14:23-0400 Body mass index (BMI) [Ratio] 47.8 kg/m2 Dr. Candice Rossi Work Phone: [facility] Work Phone: 04-22-2022 14:23-0400 Body weight 107.[address] Candice Rossi Work Phone: [facility] Work Phone: 04-22-2022 14:23-0400 Heart rate 56 /min Dr. Candice Rossi Work Phone: [facility] Work Phone: 04-22-2022 14:23-0400 Respiratory rate 18 /min Dr. Candice Rossi Work Phone: [facility] Work Phone: 04-22-2022 14:23-0400 SaO2% (BldA) [Mass fraction] 97 % Dr. Candice Rossi Work Phone: [facility] Work Phone: 01-02-2022 13:56-0500 Body mass index (BMI) [Ratio] 46 kg/m2 Dr. Candice Rossi Work Phone: [facility] Work Phone: 01-02-2022 13:56-0500 Body temperature 97.8 [degF] Dr. Candice Rossi Work Phone: [facility] Work Phone: 01-02-2022 13:56-0500 Body weight 103.[address] Candice Rossi Work Phone: [facility] Work Phone: 01-02-2022 13:56-0500 Diastolic blood pressure 72 mm[Hg] Dr. Candice Rossi Work Phone: [facility] Work Phone: 01-02-2022 13:56-0500 Heart rate 56 /min Dr. Candice Rossi Work Phone: [facility] Work Phone: 01-02-2022 13:56-0500 Respiratory rate 16 /min Dr. Candice Rossi Work Phone: [facility] Work Phone: 01-02-2022 13:56-0500 SaO2% (BldA) [Mass fraction] 98 % Dr. Candice Rossi Work Phone: [facility] Work Phone: 01-02-2022 13:56-0500 Systolic blood pressure 168 mm[Hg] Dr. Candice Rossi Work Phone: [facility] Work Phone: 01-02-2022 12:56-0500 Body height 149.86 cm [facility] Work Phone: [facility] Work Phone: 01-02-2022 12:56-0500 Body mass index (BMI) [Ratio] 46 kg/m2 [facility] Work Phone: [facility] Work Phone: 01-02-2022 12:56-0500 Body temperature 97.8 [degF] [facility] Work Phone: [facility] Work Phone: 01-02-2022 12:56-0500 Body weight 103.47 kg [facility] Work Phone: [facility] Work Phone: 01-02-2022 12:56-0500 Diastolic blood pressure 72 mm[Hg] [facility] Work Phone: [facility] Work Phone: 01-02-2022 12:56-0500 Heart rate 56 /min [facility] Work Phone: [facility] Work Phone: 01-02-2022 12:56-0500 Respiratory rate 16 /min [facility] Work Phone: [facility] Work Phone: 01-02-2022 12:56-0500 SaO2% (BldA) [Mass fraction] 98 % [facility] Work Phone: [facility] Work Phone: 01-02-2022 12:56-0500 Systolic blood pressure 168 mm[Hg] [facility] Work Phone: [facility] Work Phone: 10-06-2021 13:06-0500 Body temperature 97.8 [degF] [facility] Work Phone: [facility] Work Phone: 10-06-2021 13:06-0500 Diastolic blood pressure 56 mm[Hg] [facility] Work Phone: [facility] Work Phone: 10-06-2021 13:06-0500 Heart rate 65 /min [facility] Work Phone: [facility] Work Phone: 10-06-2021 13:06-0500 Respiratory rate 20 /min [facility] Work Phone: [facility] Work Phone: 10-06-2021 13:06-0500 SaO2% (BldA) [Mass fraction] 99 % [facility] Work Phone: [facility] Work Phone: 10-06-2021 13:06-0500 Systolic blood pressure 135 mm[Hg] [facility] Work Phone: [facility] Work Phone: 10-05-2021 11:19-0500 Body weight 98.47 kg [facility] Work Phone: [facility] Work Phone: 10-04-2021 22:16-0500 Body mass index (BMI) [Ratio] 43.8 kg/m2 [facility] Work Phone: [facility] Work Phone: 08-09-2020 14:50-0400 Body mass index (BMI) [Ratio] 47 kg/m2 [facility] Work Phone: [facility] 08-09-2020 14:50-0400 Body temperature 98 [degF] [facility] Work Phone: [facility] 08-09-2020 14:50-0400 Diastolic blood pressure 97 mm[Hg] [facility] Work Phone: [facility] 08-09-2020 14:50-0400 Heart rate 53 /min [facility] Work Phone: [facility] 08-09-2020 14:50-0400 Respiratory rate 14 /min [facility] Work Phone: [facility] 08-09-2020 14:50-0400 SaO2% (BldA) [Mass fraction] 99 % [facility] Work Phone: [facility] 08-09-2020 14:50-0400 Systolic blood pressure 165 mm[Hg] [facility] Work Phone: [facility] Encounters Encounter Date Encounter Type Care Provider Facility Start: 05-02-2025 ambulatory Eder Garber lity:[facility] Start: 04-27-2025 ambulatory Rhett Perry NP Facility :[facility] Start: 04-20-2025 End: 04-20-[address] Eder Castano MD -[facility] Work Phone: Start: 04-20-2025 End: 04-20-2025 ambulatory Lucita Agarwal [employer] Work Phone: [facility] Work Phone: Start: 04-11-2025 Non-patient / Non-visit Dr. Eder Castano MD -[facility] Start: 04-11-2025 End: 04-11-2025 ambulatory Lucita Agarwal [employer]C Work Phone: [facility] Work Phone: Start: 04-11-2025 End: 04-11-[address] Eder Castano MD -Breast Imaging - Biopsy/[facility] Work Phone: Start: 04-11-2025 End: 04-11-2025 ambulatory Eder Castano Facility:[facility] Start: 03-25-2025 End: 03-25-2025 ambulatory Lucita Agarwal [employer]C Work Phone: [facility] Work Phone: Start: 03-25-2025 End: 03-25-[address] Eder Castano MD -Breast Imaging - Biopsy/[facility] Work Phone: Start: 03-25-2025 End: 03-25-2025 ambulatory Eder Castano Facility:[facility] Start: 03-18-2025 End: 03-18-[address] Eder Castano MD -[facility] Work Phone: Start: 03-18-2025 End: 03-18-2025 ambulatory Eder Castano Facility:[facility] Start: 03-11-2025 End: 03-11-2025 ambulatory Lucita Agarwal [employer] Work Phone: [facility] Work Phone: Start: 03-11-2025 End: 03-11-[address] Candice Rossi MD -Outpatient Breast [facility] Work Phone: Start: 03-10-[address] Barbara Rossi MD -[facility] Start: 03-10-2025 End: 03-11-2025 ambulatory Candice Rossi Facility:[facility] Start: 03-04-2025 End: 03-04-2025 ambulatory Lucita Agarwal NP-C Work Phone: [facility] Work Phone: Start: 03-04-2025 End: 03-04-[address] Candice Rossi MD -Outpatient Breast Imaging Work Phone: Start: 03-04-2025 End: 03-04-2025 ambulatory Candice Rossi Facility:[facility] Start: 02-10-2025 End: 02-10-2025 ambulatory Lucita SCHERERC Work Phone: [facility] Work Phone: Start: 02-10-2025 End: 02-10-2025 Patient encounter procedure Eloy SCHERERC -Laboratory, [facility] Start: 02-10-2025 End: 02-10-2025 ambulatory Eloy Bolanos Facility:[facility] Start: 02-03-2025 End: 02-03-2025 ambulatory Lucita Stefano [employer] Work Phone: [facility] Work Phone: Start: 02-03-2025 End: 02-03-2025 Patient encounter procedure Juliano BOO -[facility] Work Phone: Start: 02-03-2025 End: 02-03-2025 ambulatory Juliano BOO Facility:[facility] Start: 01-28-2025 End: 01-28-2025 Emergency department patient visit LUCITA AGARWAL Facility:[facility] Start: 12-24-2024 Non-patient / Non-visit Dr. Hang Lepe MD -[facility] Work Phone: Start: 12-24-2024 End: 12-24-2024 ambulatory Lucita Agarwal [employer] Work Phone: [facility] Work Phone: Start: 12-24-2024 End: 12-24-[address] Stewart Newman MD -Pulmonary Services/Neurology Work Phone: Start: 12-24-2024 End: 12-24-2024 ambulatory Stewart Newman Facility:[facility] Start: 12-09-2024 End: 12-09-[address] Stewart Newman MD -[facility] Work Phone: Start: 12-09-2024 End: 12-09-2024 ambulatory Stewart Newman Facility:[facility] Start: 12-02-2024 End: 12-02-2024 Patient encounter procedure Susanna BOO -Nuclear Medicine, [facility] Work Phone: Start: 12-02-2024 End: 12-02-2024 ambulatory Susanna Weathers Facility:[facility] Start: 11-11-2024 End: 11-11-2024 Patient encounter procedure Susanna BOO -[facility] Work Phone: Start: 11-11-2024 End: 11-11-2024 ambulatory Susanna Weathers Facility:[facility] Start: 11-03-2024 End: 11-03-2024 Patient encounter procedure [facility] Lucita Agarwal [employer]ANDING MACHINE TENDER-C -Laboratory Work Phone: Start: 11-03-2024 End: 11-03-2024 ambulatory Lucita Agarwal [facility] Facility:[facility] Start: 09-28-2024 End: 09-28-2024 Patient encounter procedure Rhett Perry [employer]ACHINE [employer]ER-C -[facility] Work Phone: Start: 09-28-2024 End: 09-28-2024 ambulatory Rhett Perry [employer]ANDING MACHINE TENDER Facility:[facility] Start: 09-21-2024 ambulatory Eder Garber lity:[facility] Start: 09-21-2024 End: 09-21-2024 Non-patient / Non-visit Dr. Eder Castano MD -[facility] Start: 09-21-2024 End: 09-21-2024 Admission to same day surgery center Dr. Eder Castano MD -Endoscopy Work Phone: Start: 09-21-2024 End: 09-21-2024 ambulatory Eder Castano Facility:[facility] Start: 09-01-2024 End: 09-01-2024 ambulatory Candice Rossi Facility:[facility] Start: 08-11-2024 End: 08-11-2024 ambulatory Eder Castano Facility:[facility] Start: 08-03-2024 End: 08-03-2024 ambulatory Lucita Agarwal [facility] Facility:[facility] Start: 07-20-2024 End: 07-20-2024 ambulatory Lucita Stefano [facility] Facility:[facility] Start: 02-17-2024 End: 02-17-2024 ambulatory [facility] Work Phone: Start: 02-17-2024 End: 02-17-2024 Patient encounter procedure [facility]Labor[facility] Work Phone: Start: 12-31-2023 End: 12-31-2023 [facility] Facility:[facility] Start: 12-31-2023 End: 12-31-2023 Patient encounter procedure Marsha Harris MD Work Phone: Ophthalmology Comment on above: Status post cataract extraction and insertion of intraocular lens of left eye (Primary Dx); Pseudophakia of right eye; Type 2 diabetes mellitus without retinopathy (HCC); Punctate keratitis, bilateral; Essential hypertension; Hypercholesterolemia Start: 12-26-2023 End: 12-26-2023 [facility] Facility:[facility] Start: 12-26-2023 End: 12-26-2023 Patient encounter procedure Marsha Harris MD Work Phone: Ophthalmology Comment on above: Status post cataract extraction and insertion of intraocular lens of left eye (Primary Dx); Pseudophakia of right eye; Type 2 diabetes mellitus without retinopathy (HCC); Essential hypertension; Hypercholesteremia Start: 12-15-2023 ambulatory MARSHA HARRIS [facility] Start: 11-26-2023 End: 11-26-2023 ambulatory MARSHA HARRIS Facility:[facility] Start: 09-19-2023 End: 09-19-2023 ambulatory [facility] Facility:[facility] Start: 09-19-2023 End: 09-19-2023 Patient encounter procedure Lusi King BETHANY Work Phone: [facility] Comment on above: Chronic upset stomac h (Primary Dx) Start: 09-04-2023 Registered Recurring [facility] Work Phone: [facility] Start: 09-04-2023 End: 09-04-2023 Patient encounter procedure [facility] Work Phone: [facility] Work Phone: Start: 09-01-2023 End: 09-01-2023 ambulatory [facility] Work Phone: [facility] Work Phone: Start: 09-01-2023 End: 09-01-2023 Patient encounter procedure [facility] Work Phone: [facility] Work Phone: Start: 06-02-2023 End: 06-02-2023 ambulatory [facility] Work Phone: [facility] Work Phone: Start: 06-02-2023 End: 06-02-2023 Discharged Recurring [facility] Work Phone: [facility]-Physical Therapy Work Phone: Start: 04-16-2023 End: 04-16-2023 ambulatory MARSHA HARRIS Facility:[facility] Start: 04-16-2023 End: 04-16-2023 Patient encounter procedure Marsha Harris MD Work Phone: Ophthalmology Comment on above: Status post cataract extraction and insertion of intraocular lens of right eye (Primary Dx); Combined forms of age-related cataract of left eye Start: 03-19-2023 End: 03-19-2023 [facility] Facility:[facility] Start: 03-14-2023 End: 03-14-2023 [facility] Facility:[facility] Start: 03-13-2023 End: 03-13-2023 Subsequent hospital visit by physician Marsha Harris MD Work Phone: [facility] Comment on above: Combined forms of ag e-related cataract, right eye; Type 2 diabetes mellitus with diabetic cataract ([facility]/HCC); Hypertensive heart disease with heart failure ([facility]); Heart failure, unspecified ([facility]); Obstructive sleep apnea (adult) (pediatric); Gastro-esophageal reflux disease without esophagitis; FDC (current) use of oral hypoglycemic drugs; Allergy status to penicillin; Allergy status to sulfonamides Start: 03-04-2023 End: 03-04-2023 Patient encounter procedure [facility] Work Phone: [facility] Work Phone: Start: 03-03-2023 End: 03-03-2023 ambulatory [facility] Facility:[facility] Start: 03-03-2023 End: 03-03-2023 Patient encounter procedure [...] type; Bradycardia Start: 02-26-2023 End: 02-26-2023 ambulatory [facility] Work Phone: [facility] Work Phone: Start: 02-26-2023 End: 02-26-2023 Patient encounter procedure [facility] Work Phone: [facility]-Outpatient Breast Imaging Start: 02-05-2023 End: 02-05-2023 ambulatory [facility] Facility:[facility] Start: 01-23-2023 Patient encounter status [facility] Work Phone: [facility] Start: 01-23-2023 End: 01-23-2023 Admission to same day surgery center [facility] Work Phone: [facility] Start: 01-23-2023 End: 01-23-2023 Patient encounter procedure [facility] Work Phone: [facility] Start: 12-23-2022 End: 12-23-2022 Patient encounter procedure [...] Start: 09-25-2022 End: 09-25-2022 Patient encounter procedure [facility] Work Phone: [facility] Start: 09-18-2022 Non-patient / Non-visit [facility] Work Phone: [facility] Start: 09-18-2022 End: 09-18-2022 ambulatory [facility] Work Phone: [facility] Work Phone: Start: 09-18-2022 End: 09-18-2022 Patient encounter procedure [facility] Work Phone: [facility]-Breast Imaging - Biopsy/[facility] Start: 09-11-2022 End: 09-11-2022 [facility] encounter [facility] Work Phone: [facility] Start: 09-05-2022 End: 09-05-2022 ambulatory [facility] Work Phone: [facility] Work Phone: Start: 09-05-2022 End: 09-05-2022 Patient encounter procedure [facility] Work Phone: [facility]-Outpatient Breast Imaging Start: 09-03-2022 End: 09-03-2022 ambulatory [facility] Work Phone: [facility] Work Phone: Start: 09-03-2022 End: 09-03-2022 Patient encounter procedure [facility] Work Phone: [facility] Start: 08-29-2022 End: 08-29-2022 ambulatory [facility] Work Phone: [facility] Work Phone: Start: 08-29-2022 End: 08-29-2022 Patient encounter procedure [facility] Work Phone: [facility] Start: 06-04-2022 End: 06-04-2022 Patient encounter procedure [facility] Work Phone: [facility] Start: 04-22-2022 End: 04-22-[address] Candice Rossi Work Phone: [facility] Start: 02-25-2022 End: 02-25-[address] Candice Rossi Work Phone: [facility]-Outpatient Breast Imaging Start: 01-10-2022 End: 01-10-2022 Patient encounter procedure [facility] Work Phone: [facility]-Laboratory Start: 01-02-2022 End: 01-02-2022 Patient encounter procedure [facility] Work Phone: [facility] Start: 10-15-2021 Patient encounter procedure [facility] Work Phone: [facility] Start: 10-06-2021 Non-patient / Non-visit [facility] Work Phone: [facility] Start: 10-05-2021 Non-patient / Non-visit [facility] Work Phone: [facility] Start: 10-04-2021 Non-patient / Non-visit [facility] Work Phone: [facility] Start: 10-04-2021 End: 10-06-2021 Evaluation and management of inpatient [facility] Work Phone: [facility] Start: 10-04-2021 Patient encounter procedure [facility] Work Phone: [facility] Procedures Date Procedure Procedure Detail Performing Clinician Start: 04-11-2025 Biopsy of breast Jose David Agarwal SANDING MACHINE TENDER-C Work Phone: Start: 03-25-2025 Ultrasonography of breast Lucita Agarwal SANDING MACHINE TENDER-C Work Phone: Start: 03-11-2025 Ultrasonography of breast Lucita Agarwal SANDING MACHINE TENDER-C Work Phone: Start: 03-11-2025 Mammography Lucita Fr anklin SANDING MACHINE TENDER-C Work Phone: Start: 03-10-2025 Estimated creatinine clearance Luciat Agarwal SANDING MACHINE TENDER-C Work Phone: Start: 03-04-2025 Screening mammography Shannon Agarwal SANDING MACHINE TENDER-C Work Phone: Start: 02-03-2025 X-ray of chest, PA a nd lateral views Lucita Agarwal SANDING MACHINE TENDER-C Work Phone: Start: 12-09-2024 Evaluation of diagno stic study results Lucita Agarwal SANDING MACHINE TENDER-C Work Phone: Start: 12-02-2024 Radionuclide gastric emptying study Lucita Agarwal SANDING MACHINE TENDER-C Work Phone: Start: 09-28-2024 Evaluation of diagno stic study results Lucita Agarwal SANDING MACHINE TENDER-C Work Phone: Start: 09-01-2023 MRI of bilateral ryan asts with contrast [facility] Work Phone: Start: 03-13-2023 Glucose [Mass/volume ] in Serum or Plasma Marsha Harris MD Work Phone: Start: 02-26-[address] [facility] Work Phone: Start: 02-26-2023 Ultrasonography of breast [facility] Work Phone: Start: 09-18-2022 Ultrasonography guid ed biopsy of breast [facility] Work Phone: Start: 09-05-2022 Mammography [facility] Work Phone: Start: 09-05-2022 Ultrasonography of breast [facility] Work Phone: Start: 08-29-2022 MRI of bilateral ryan asts with contrast [facility] Work Phone: Start: 02-25-2022 Screening mammography Eliezer Sesayus Work Phone: Start: 10-04-2021 End: 10-04-2021 Ova OR parasites identification [facility] Work Phone: Start: 01-16-2015 Colonoscopy Marsha curry MD Work Phone: Plan of Treatment Date Care Activity Detail Author Start: 04-11-2025 Bx breast w/device 1st lesion stereotactic guid BX BREAST 1ST LESION STRTCTC [facility] Start: 11-26-2024 BP Controlled (<130/80) BP Controlled (<130/80) [facility] Start: 11-26-2024 Glaucoma screening Dilated Retinal Exam [facility] Start: 09-21-2024 Esophagogastroduodenoscopy transoral diagnostic EGD DIAGNOSTIC BRUSH WASH [facility] Start: 09-21-2024 Patient discharge [facility] Start: 03-31-2024 Hepatitis B surface antibody level LDL CHOLESTEROL [facility] Start: 11-29-2023 Hepatitis C antibody, confirmatory test DILATED RETINAL EXAM [facility] Start: 10-27-2023 Advance Directive Discussion Advance Directive Discussion [facility] Start: 10-27-2023 Depression Assessment Depression Assessment [facility] Start: 06-27-2023 Influenza vaccination [facility] Start: 06-04-2023 Hemoglobin A1c measurement HbA1C [facility] Start: 06-04-2023 Hemoglobin A1c/Hemoglobin.total in Blood HBA1C [facility] Start: 10-27-2022 ADVANCE DIRECTIVE DISCUSSION ADVANCE DIRECTIVE DISCUSSION [facility] Start: 10-27-2022 DEPRESSION ASSESSMENT DEPRESSION ASSESSMENT [facility] Start: 09-05-2022 Mammography DIAG MAMM W/CAD, UNILAT [facility] Work Phone: Start: 09-05-2022 MG Breast Diagnostic [facility] Work Phone: Start: 09-05-2022 Ultrasonography of breast Breast Limited Unilateral [facility] Work Phone: Start: 09-05-2022 US Breast limited [facility] Work Phone: Start: 06-27-2022 Influenza vaccination INFLUENZA (#1) [facility] Start: 07-19-2019 MG Breast - bilateral Screening [facility] Start: 02-18-2019 [facility] Start: 02-02-2019 [facility] Start: 01-16-2018 Colonoscopy COLONOSCOPY [facility] Start: 01-16-2018 COLORECTAL CANCER SCREENING COLORECTAL CANCER SCREENING [facility] Start: 01-16-2018 Screening for malignant neoplasm of colon [facility] Start: 2014 PNEUMOCOCCAL: 65+ (1 - PCV) PNEUMOCOCCAL: 65+ (1 - PCV) [facility] Start: 03-31-2013 Hepatitis B surface antibody level LDL CHOLESTEROL [facility] Start: 2009 Hepatitis B Vaccine (1 of 3 - Risk 3-dose series) Hepatitis B Vaccine (1 of 3 - Risk 3-dose series) [facility] Start: 2009 RSV Vaccine (1 - 1-dose 60+ series) RSV Vaccine (1 - 1-dose 60+ series) [facility] Start: 1999 SHINGRIX VACCINE (1 of 2) SHINGRIX VACCINE (1 of 2) [facility] Start: 1999 Zoster Vaccines (1 of 2) Zoster Vaccines (1 of 2) [facility] Start: 1994 COLOGUARD (FIT-DNA) COLOGUARD (FIT-DNA) [facility] Start: [address] COLONOGRAPHY [facility] Start: 1994 FECAL OCCULT BLOOD FECAL OCCULT BLOOD [facility] Start: 1994 Screening for malignant neoplasm of colon [facility] Start: 1994 SIGMOIDOSCOPY SIGMOIDOSCOPY [facility] Start: 1989 Mammography [facility] Start: 1989 Screening for malignant neoplasm of breast [facility] Start: 1971 DTaP/Tdap/Td Vaccines (1 - Tdap) DTaP/Tdap/Td Vaccines (1 - Tdap) [facility] Start: 1968 Urine microalbumin profile [facility] Start: 1968 Urine screening for protein Diabetes: Urine Protein Screening [facility] Start: 1967 ANNUAL PCP TEAM CHRONIC DISEASE VISIT ANNUAL PCP TEAM CHRONIC DISEASE VISIT [facility] Start: 1967 BP CONTROLLED (<130/80) BP CONTROLLED (<130/80) [facility] Start: 1967 HEPATITIS C SCREENING HEPATITIS C SCREENING [facility] Start: 1967 Hepatitis C screening Hepatitis C Screening [facility] Start: 1959 3 comp foot exam completed DIABETIC FOOT EXAM [facility] Start: 1959 Diabetic foot examination [facility] Start: 1959 Glaucoma screening Diabetes: Retinopathy Screening [facility] Start: 1959 Hepatitis B screening URINE ALBUMIN:CREATININE RATIO [facility] Start: 1955 Pneumococcal Vaccine: 65+ (1 - PCV) Pneumococcal Vaccine: 65+ (1 - PCV) [facility] Start: 1955 Pneumococcal Vaccine: 65+ (1 of 2 - PCV) Pneumococcal Vaccine: 65+ (1 of 2 - PCV) [facility] Start: 1955 Pneumococcal Vaccine: 65+ Years (1 - PCV) Pneumococcal Vaccine: 65+ Years (1 - PCV) [facility] Start: 1955 PNEUMOCOCCAL: 65+ (1 - PCV) PNEUMOCOCCAL: 65+ (1 - PCV) [facility] Start: 06-07-1950 COVID-19 VACCINE (#1) COVID-19 VACCINE (#1) [facility] Start: 1949 Hemoglobin A1c measurement Diabetes: Hemoglobin A1C [facility] Start: 1949 Lipid panel Lipid Panel [facility] Start: 1949 Screening for malignant neoplasm of colon [facility] Start: 1949 Screening for osteoporosis Bone Density Scan [facility] Start: 1949 Yearly Adult Physical Yearly Adult Physical [facility] CBC W Auto Different ial panel - Blood [facility] Work Phone: CBC W Auto Different ial panel - Blood [facility] MG Breast - bilateral Screening [facility] Work Phone: MG Breast - bilateral Screening [facility] MR Breast - bilatera l WO and W contrast IV [facility] Work Phone: MR Breast - bilatera l WO and W contrast IV [facility] Patient Education [facility] Work Phone: Patient referral [facility] Work Phone: XR Chest PA and Lateral [facility] Immunizations Immunization Date Immunization Notes Care Provider Tamar piña 07-27-2021 Influenza virus vaccine [facility] Work Phone: [facility] 06-30-2017 Influenza virus vaccine [facility] Work Phone: [facility] 06-30-2017 influenza virus vaccine, unspecified formulation Luis Osorio BETHANY Work Phone: [facility] Payers Date Payer Category Payer Unknown [id number] 2021 Self-pay [id number] 2019 Medicare [id number] 1950 Unknown [id number] 2.16.84 [id number] Unknown [id number] 2.16.8 40.1.437534.3.579.2.462 Unknown [id number] 2.16.8 40.1.511979.3.579.2.462 Unknown [id number] 2.16.8 40.1.767202.3.579.2.462 Unknown [id number] 2.16.8 40.1.028859.3.579.2.462 Unknown [id number] 2.16.8 40.1.064214.3.579.2.462 Unknown [id number] 2.16.8 40.1.448131.3.579.2.462 Unknown [id number] 2.16.8 40.1.086089.3.579.2.462 Unknown [id number] 2.16.8 40.1.185284.3.579.2.462 Unknown [id number] 2.16.8 40.1.058938.3.579.2.462 Unknown [id number] 2.16.8 40.1.542203.3.579.2.462 Unknown [id number] 2.16.8 40.1.597690.3.579.2.462 Unknown [id number] 2.16.8 40.1.787938.3.579.2.462 Unknown [id number] 2.16.8 40.1.576788.3.579.2.462 Unknown [id number] 2.16.8 40.1.423943.3.579.2.462 Unknown [id number] 2.16.8 40.1.900538.3.579.2.462 Unknown [id number] 2.16.8 40.1.793195.3.579.2.462 Unknown [id number] 2.16.8 40.1.875134.3.579.2.462 Unknown [id number] 2.16.8 40.1.758779.3.579.2.462 Unknown [id number] 2.16.8 40.1.349499.3.579.2.462 Unknown [id number] 2.16.8 40.1.422775.3.579.2.462 Unknown [id number] 2.16.8 40.1.426380.3.579.2.462 Unknown [id number] 2.16.8 40.1.471203.3.579.2.462 Unknown [id number] 2.16.8 40.1.698158.3.579.2.462 Unknown [id number] 2.16.8 40.1.934976.3.579.2.462 Unknown [id number] 2.16.8 40.1.582282.3.579.2.462 Unknown [id number] 2.16.8 40.1.114559.3.579.2.462 Unknown [id number] 2.16.8 40.1.941304.3.579.2.462 Unknown [id number] 2.16.8 40.1.785972.3.579.2.462 Unknown [id number] 2.16.8 40.1.251508.3.579.2.462 Social History Date Type Detail Facility Start: 10-04-2021 End: 09-16-2023 Tobacco smoking status NHIS Unknown if ever smoked [facility] Start: 08-09-2020 Non-smoker [facility] Start: 1950 Sex Assigned At Female [facility] Start: 09-17-2024 Tobacco smoking stat us NHIS Never smoked tobacco [facility] Work Phone: Start: 12-23-2022 End: 12-31-2023 Alcohol intake Current non-drinker of alcohol (finding) [facility] Start: 1950 Sex Assigned At Not on file [facility] Start: 04-16-2023 End: 11-26-2023 Gender identity Not on file [facility] Work Phone: Start: 04-16-2023 End: 11-26-2023 History of Social function [facility] Start: 01-06-2025 End: 02-15-2025 Sex Female (finding) [facility] Medical Equipment Procedure Code Equipment Code [...] Assessment Result Facility 10-06-2021 Functional status Ambulates;Bedrest [facility] Work Phone: Mental Status Date Assessment Result Facility 09-21-2024 Cognitive function Touch/Shaking [facility] Work Phone: 09-21-2024 Cognitive function Patient Orien tation Person;Place [facility] Work Phone: 10-06-2021 Cognitive function Voice/Name [facility] Work Phone: Clinical Notes 11-29-2022 to 04-11-2025 Note Date & Type Note Facility 04-11-2025 Procedure note [facility] 03-25-2025 Radiology Diagnostic study note [facility] Imaging Services [address] [place] [address] Breast Limited Unilateral MR#: [id number] Acct: [id number] Name: WINIFRED VÁSQUEZ Rep #: [id number] : 1950 F 74 From: Eduardo Espinoza MD PCP: KRYSTIAN Ledesma, SANDING MACHINE TENDER-C Status: REG CLI Study:Breast Limited Unilateral Date of Exam: 03/25/25 Exam# [id number] Ordering Dr: Eder Dougherty MD PROCEDURE: BREAST [...] - NEED ADDITIONAL IMAGING EVALUATION. Reading Location: [facility] CC: [facility] SANDING MACHINE TENDER-C Lucita Agarwal; Dr. Eder Castano MD ~ Community Manager: Signed [facility] 03-11-2025 Radiology Diagnostic study note [facility] Imaging Services [address] [place] [place] [address] Breast Limited Unilateral MR#: [id number] Acct: [id number] Name: WINIFRED VÁSQUEZ Rep #: [id number] : 1950 F 74 From: Megan Tee MD PCP: Lucita Stefano, VSC, SANDING MACHINE TENDER-C Status: REG CLI Study:Breast Limited Unilateral Date of Exam: 03/11/25 Exam# [id number] Ordering Dr: Candice Rossi MD EXAM: BREAST [...] be mailed to the patient. Reading Location: [id number] CC: [facility] SANDING MACHINE TENDER-C Lucita Agarwal; Dr. Candice Rossi MD ~ Community Manager: Signed [facility] 02-03-2025 Evaluation note Diagnosis Onset Date Resolution Acute bronchitis acute February 032024 11:34am Acute suppur right otitis media w/spontan rupture of tympanic membrane acute February 03, 2025 11:34am DCIS (ductal carcinoma in situ) chronic March 10, 2025 1 2:45pm Encounter for education resolved March 10, 2025 1 2:45pm Left breast mass acute February 12:17pm [facility] Work Phone: 1(569) 102-482104-10-2025 Radiology Diagnostic study note [facility] Imaging Services [address] [place] [address] Chest PA and Lateral MR#: [id number] Acct: [id number] Name: WINIFRED VÁSQUEZ Rep #: [id number] : 1950 F 74 From: Padmini Vázquez MD PCP: Lucita Agarwal Katerin, SANDING MACHINE TENDER-C Status: REG CLI Study:Chest PA and Lateral Date of Exam: 02/03/25 Exam# [id number] Ordering Dr: Katerin Cummins PA PA EXAM: [...] IMPRESSION: No acute cardiopulmonary process. 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 Lucita Agarwal; EMA Scales ~ Community Manager: Signed [facility]04-04-2025 [id number] (AGENT OF COVID-19) RNA: Not detected INFLUENZA A RNA: Detected INFLUENZA B RNA: Not detected RESPIRATORY SYNCYTIAL VIRUS (RSV) RNA: Not detectedRumford Community HospitalComment on above:Performed By: #### [id number] ####[facility] LABCLIA [id number] [place] [address] [facility]02-13-2025 Evaluation note* Diagnosis Onset Date Resolution Status Admit Date Atrial fibrillation acute 2024 3:17pm Essential hypertension chronic 2024 3:17pm Hyperlipidemia chronic November 272024 3:17pm Acute bronchitis acute February 032024 11:34am Acute suppur right otitis media w/spontan rupture of tympanic membrane acute February 03 11:34am DCIS (ductal carcinoma in situ) chronic March 10, 2025 1 2:45pm Encounter for education resolved 2024 12:45pm [facility] Work Phone: 1(980) 856-387102-13-2025 Evaluation note* Diagnosis Onset Date Resolution Status [...] 12:45pm Left breast mass acute February 12:17pm [facility] Work Phone: 1(319) 168-825101-16-2025 Evaluation note* Diagnosis Onset Date Resolution Status Admit Date Difficulty swallowing acute Oct 8:10am Early satiety acute October 8:10am Atrial fibrillation acute 2024 3:17pm Essential hypertension chronic Fe bruary 2024 3:17pm Hyperlipidemia chronic November 272024 3:17pm Acute bronchitis acute February 032024 11:34am Acute suppur right otitis me john w/spontan rupture of tympanic membrane acute February 03, 2025 11:34am [facility] Work Phone: 1(406) 825-970012-03-2024 Evaluation note* Diagnosis Onset Date Resolution Status Admit Date Atrial fibrillation acute Decem tricia 2023 2:47pm Essential hypertension chronic De cem2023 2:47pm Hyperlipidemia chronic September 282023 2:47pm Difficulty swallowing acute Oct 8:10am Early satiety acute October 8:10am Atrial fibrillation acute Febru 2024 3:17pm Essential hypertension chronic Fe bruary 2024 3:17pm Hyperlipidemia chronic November 272024 3:17pm [facility] Work Phone: 1(922) 380-788711-26-2024 [facility] Medical Records Department [address] [place] [address] History Physical Exam 09/21/24 0755 MR#: [id number] Acct: [id number] Name: WINIFRED VÁSQUEZ Rep #: [id number] : 1950 73 From: Eder Castano MD PCP: KRYSTIAN Ledesma, SANDING MACHINE TENDER-C Status:[facility] Location: [place] [address] History and Physical Date of Admission: 09/21/24 [...] use type: does not use caffeine: No emanuel/druze: Mormon seatbelt use: alway (more content not included)...[facility] 12-31-2023 NoteHNO ID: [id number] Author: MARSHA HARRIS MD Service: ? Author [...] Patient was instructed to call the office ([phone]) immediately upon noticing flashes of light, increase [...] and agree with all of its relevant components.[facility]03-06-2024 Instructions* Patient Instructions* Marsha Harris MD [...] any questions please contact our office at [phone]. After office hours or on the weekend, please call Dr. Harris on his cell phone at [phone]. documented [facility] History of Present illness Narrative* Marsha Harris [...] Patient was instructed to call the office ([phone]) immediately upon noticing flashes of light, increase [...] of its relevant components. documented in this [facility]2024 NoteHNO ID: [id number] Author: MARSHA HARRIS MD Service: ? Author [...] and agree with all of its relevant components.[facility]03-01-2024 History of Present illness Narrative* Marsha [...] of its relevant components. documented in this [facility] Instructions* Patient Instructions* Marsha Harris MD - [...] any questions please contact our office at [phone]. After office hours or on the weekend, please call Dr. Harris on his cell phone at [phone]. documented in this encounter[facility]24 NoteHNO ID: [id number] Author: MARSHA HARRIS MD Service: ? Author [...] Lens Implant Left Eye on 12/25/2023 at [facility]. Current Ophthalmic Meds fluorometholone (FML LIQUID [...] questions about the findings, diagnosis, and treatment options.[facility]11-24-2023 NoteHNO ID: [id number] Author: Luis Osorio APRN.BRANDEN Service: ? Author Type: Nurse Practitioner Type: Progress Notes Filed: 09/19/2023 12:22 PM Note Text: Patient triaged at [facility]. Here today with upset stomach/not eating/weigth loss since starting new medication from pcp 2+months ago. No abdominal pain. I will refer to pcp, likely medication reaction.[facility]11-24-2023 History of Present illness Narrative* Luis Osorio APRN.CNP - 09/19/2023 12:21 PM EST Patient triaged at [facility]. Here today with upset stomach/not eating/weigth loss since starting new medication from pcp 2+months ago. No abdominal pain. I will refer to pcp, likely medication reaction. documented in this encounter[facility] Discharge summary Author Bryson Guillermo [facility] June 02, 2023 6:05pm Note Date/Time June 02, 2023 6:0 5pm [facility] Physical Therapy [facility] [address] [place] [address]. [address] [place] [address] / REHABILITATION SERVICES DISCHARGE SUMMARY MR#: [id number] Acct: [id number] Name: WINIFRED VÁSQUEZ Rep #: [id number] : 1950 72 From: Bryson Siegel Referring [...] please feel free to call me at [phone]. Thank you for the referral of thispatient. Sincerely, Bryson Guillermo, DPT Balance/Gait/Functional tests Balance/Special Test Scores Lower Extremity Functional Score: 40 <Electronically signed by Bryson Guillermo DPT> 06/02/23 [id number] CC: Dr. Jony Taveras DO; [facility] ~ CLS Signed [facility] Work Phone: 1(270) 475-825806-21-2023 NoteHNO ID: [id number] Author: Marsha Harris MD Service: ? Author [...] questions about the findings, diagnosis, and treatment options.[facility]06-21-2023 History of Present illness Narrative* Marsha [...] technical staff.I have seen and examined Winifred Váqsuez. I have discussed the examination findings, diagnosis, and treatment options with Winifred Vásquez and/or her family. I have also reviewed and agree with the assessment and plan as stated above and agree with all its relevant components. I gave the patient the opportunity to ask questions about the findings, diagnosis, and treatment options. documented in this encounterSelect [facility]23 NoteHNO ID: [id number] Author: Vivien Hadnley II, OD Service: ? Author Type: ADOBE DEVELOPER Type: Progress Notes Filed: 03/19/2023 4:30 PM [...] of its relevant components. Vivien Handley II, [facility]05-19-2023 NoteHNO ID: [id number] Author: Marsha Harris MD Service: ? Author [...] findings, diagnosis, and treatment options. Marsha Harris, [facility]05-18-2023 Miscellaneous Notes* Op Note - Marsha Harris MD - 03/13/2023 12:54 PM EDT Post Operative Note: Post-Procedure Diagnosis: 1. Combined Form Age Related Cataract Right Eye Procedure: 1. Cataract Extraction with Intraocular Lens Implant Right Eye Surgeon: Marsha Harris MD Resident/Fellow/Other Plate Mounter: None Estimated Blood Loss (mL): none Specimen: [...] 12:57 by Marsha Harris) documented in this [facility] Work Phone: 1(178) 406-943605-18-2023 Note* Op Note - Marsha Harris MD - 03/13/2023 12:54 PM EDT Post Operative Note: Post-Procedure Diagnosis: 1. Combined Form Age Related Cataract Right Eye Procedure: 1. Cataract Extraction with Intraocular Lens Implant Right Eye Surgeon: Marsha Harris MD Resident/Fellow/Other Plate Mounter: None Estimated Blood Loss (mL): none Specimen: [...] Last Updated: 13-Mar-2023 12:57 by Marsha Harris) [facility] Work Phone: 1(819) 435-859205-18-2023 History and physical note* Marsha Harris MD [...] Last Updated: 13-Mar-2023 11:12 by Marsha Harris) [facility] Work Phone: 1(174) 377-743005-18-2023 History and physical note* Marsha Harris MD [...] madison risks related to the risk of hsruthi COVID-19 and if they contract COVID-19 what the risks are. Electronic Signatures: Marsha Harris) (Signed 13-Mar-2023 11:12) Authored: History & Physical Reviewed, ERAS, Consent, Note Completion Last Updated: 13-Mar-2023 11:12 by Marsha Harris) [facility] Work Phone: 1(662) 138-432605-08-2023 NoteHNO ID: [id number] Author: Marsha Harris MD Service: ? Author [...] findings, diagnosis, and treatment options. Marsha [facility]05-08-2023 Instructions* Patient Instructions* Marsha Harris MD - [...] any questions please contact our office at [phone]. After office hours or on the weekend, please call Dr. Harris on his cell phone at [phone]. [facility] [place] History of Present illness Narrative* Marsha Harris [...] options. Marsha Harris MD documented in [facility] [place]23 NoteHNO ID: [id number] Author: Marsha Harris MD Service: ? Author [...] findings, diagnosis, and treatment options with Winifred Vásqeuz and/or her family. I have also reviewed and agree with the assessment and plan as stated above and agree with all its relevant components. I gave the patient the opportunity to ask questions about the findings, diagnosis, and treatment options. [facility]02-27-2023 Instructions* Patient Instructions* Marsha Harris MD - 12/23/2022 1:33 PM EST Continue: Current Ophthalmic Meds fluorometholone (FML LIQUID FILM) 0.1 % ophthalmic suspension Use 1 Drop in the right eye three times daily. propylene glycoL (SYSTANE COMPLETE) 0.6 % drop Use 1 Drop in both eyes three times daily. If you have any questions please contact our office at [phone]. After office hours or on the weekend, please call Dr. Harris on his cell phone at [phone]. documented in this encounter[facility] [place] History of Present illness Narrative* Marsha Harris [...] for surgery. Patient to obtain clearance from Lease Administrator./ Dr. Newman for bradycardia 2. Combined forms [...] options. Marsha Harris MD documented in [facility] [place] History of Past illness Narrative* Problem Noted Date Resolved Date Combined forms of age-related cataract of right eye 11/29/2022 03/14/2023 documented as of this encounter (statuses as of 04/17/2023) [facility] [place] History of Past illness Narrative* Problem Noted Date Diagnosed Date Resolved Date Combined forms of age-relate d cataract of right eye 11/29/2022 03/14/2023 documented as of this encounter (statuses as of 09/19/2023) [facility] [place] History of Past illness Narrative* Problem Noted Date Diagnosed Date Resolved Date Combined forms of age-relate d cataract of right eye 11/29/2022 03/14/2023 documented as of this encounter (statuses as of 12/26/2023) [facility] [place] History of Past illness Narrative* Problem Noted Date Diagnosed Date Resolved Date Combined forms of age-relate d cataract of right eye 11/29/2022 03/14/2023 Combined forms of age-relate d cataract of left eye 11/29/2022 12/31/2023 documented as of this encounter (statuses as of 01/01/2024) [facility]* Diagnosis Onset Date Resolution Status Acute prerenal azotemia acut e SUNNY (acute kidney injury) ac vimal Campylobacter diarrhea acute Ketosis acute Severe malnutrition acute Hypokalemia resolved 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 [facility] Work Phone: Evaluation note* Diagnosis Onset Date Resolution Status 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 [facility] Work Phone: Evaluation note* Diagnosis Onset Date Resolution Status 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 (ductal carcinoma in situ) chronic Essential hypertension chron ic Hyperlipidemia [facility] Work Phone: Evaluation note* Diagnosis Onset Date Resolution Status Essential hypertension chron ic Hyperlipidemia chronic 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 [facility] Work Phone: Evaluation note* Diagnosis Onset Date Resolution Status Essential hypertension chron ic Hyperlipidemia chronic 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 chronic Abnormality of left breast on screening mammogram acute [facility] Work Phone: Evaluation note* Diagnosis Onset Date Resolution Status Essential hypertension chron ic Hyperlipidemia chronic 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 chronic Abnormality of left breast on screening mammogram acute 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 [facility] Work Phone: Evaluation note* Diagnosis Combined forms [...] specified cardiac dysrhythmias documented in this encounter [facility] Diagnosis Combined forms of age-related cataract [...] cataract, right eye documented in this encounter [facility] [place]* Diagnosis Onset Date Resolution Status Preoperative cardiovascular examination acute Essential hypertension chron ic Hyperlipidemia [facility] Work Phone: Evaluation note* Diagnosis Status post cataract extraction and insertion of intraocular lens of right eye- Primary Combined forms of age-related cataract of left eye Other and combined forms of senile cataract documented [facility] this [facility]* Diagnosis Onset Date Resolution Status 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 (ductal carcinoma in situ) chronic Encounter for education reso lved [facility] Work Phone: Evaluation note* Diagnosis Combined [...] (adult) (pediatric) Gastro-esophageal reflux disease without esophagitis 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 Allergy status to penicillin Allergy status to sulfonamides documented in this encounter [facility] Work Phone: Evaluation note* Diagnosis Chronic upset stomach- Primary Dyspepsia and other specified disorders of function of stomach documented in this encounter [facility] note* Diagnosis Status post cataract extraction and insertion of intraocular lens of left eye- Primary Pseudophakia of right eye Lens replaced by other means Type 2 diabetes mellitus without retinopathy (HCC) Type II or unspecified type diabetes mellitus without mention of complication, not stated as uncontrolled Essential hypertension Unspecified essential hypertension Hypercholesteremia Pure hypercholesterolemia documented in this [facility] Diagnosis Status post cataract extraction and insertion of intraocular lens of left eye- Primary Pseudophakia of right eye Lens replaced by other means Type 2 diabetes mellitus without retinopathy (HCC) Type II or unspecified type diabetes mellitus without mention of complication, not stated as uncontrolled Punctate keratitis, bilateral Essential hypertension Unspecified essential hypertension Hypercholesterolemia Pure hypercholesterolemia documented in this encounter [facility] noteNo assessment information availableWProtestant [facility]acon[facility] Work Phone: Hospital Discharge instructionsAmbulatory Orders* ONC Referral: Surgery Time Frame: 0 Days, [facility] * RAD ONC: CT Sim [RAD[facility]ONC[facility]] Location: None Selected * Return to Office Location: None Selected * SCRN MAMM (CAD)W/JOSE BILAT Location: None Selected [facility] Work Phone: Reason for referral (narrative)No reason for referral information availableWProtestant Deaconess Hospital Work Phone: Summary Purpose Family History [...] Will No October 05 12:16am Power of Welt Treater No October 05, 2021 12:16am Advance Directive Response Recorded Date/ Time Living Will No October 04 11:16pm Power of Welt Treater No October 04, 2021 11:16pm Advance Directive Response Recorded Date/ Time Living Will No October 05 12:16am Power of Welt Treater No October 05, 2021 12:16am Living Will No September 17 4:49pm Power of Welt Treater No September 17, 2024 4:49pm Advance Directive Response Recorded Date/ Time Living Will No October 05 12:16am Do you have a Healthcare Power of Welt Treater? No October 05, 2021 12:16am Chief Complaint [...] section and content) DATE CREATED AUTHOR 06/10/2018 [facility] [place] DATE CREATED AUTHOR AUTHOR'S ORGANIZ ATSHO 12/20/2020 [facility] [place] [facility] DATE CREATED AUTHOR AUTHOR'S ORGANIZ ATION 12/27/2023 [facility] DATE CREATED AUTHOR AUTHOR'S ORGANIZ ATION 01/01/2024 [facility] DATE CREATED AUTHOR AUTHOR'S ORGANIZ ATION 01/31/2025 [facility] DATE CREATED AUTHOR AUTHOR'S ORGANIZ ATION 04/25/2025 [facility] Goals (unrecognized section and content) Goals may [...] or prosecute any alcohol or drug abuse patient.[facility]onIn the event this information is protected by the Federal Confidentiality of Alcohol and Drug Abuse Patient Records regulations: The Federal rules restrict any use of the information to criminally investigate or prosecute any alcohol or drug abuse patient.[facility]onIn the event this information is protected by the Federal Confidentiality of Alcohol and Drug Abuse Patient Records regulations: The Federal rules restrict any use of the information to criminally investigate or prosecute any alcohol or drug abuse patient.[facility]on[facility] the event this information is protected by the Federal Confidentiality of Alcohol and Drug Abuse Patient Records regulations: The Federal rules restrict any use of the information to criminally investigate or prosecute any alcohol or drug abuse patient.[facility]on[facility] the event this information is protected by the Federal Confidentiality of Alcohol and Drug Abuse Patient Records regulations: The Federal rules restrict any use of the information to criminally investigate or prosecute any alcohol or drug abuse patient.[facility] [place]onIn the event this information is protected by the Federal Confidentiality of Alcohol and Drug Abuse Patient Records regulations: The Federal rules restrict any use of the information to criminally investigate or prosecute any alcohol or drug abuse patient.[facility] [place] Reason for Visit (unrecogniz ed section and [...] Care Teams (unrecognized sec tion and content) Radio Broadcaster Relationship Specialty Start Date End Date Lucita Agarwal NP [address], [place] [id number] PCP - General Family Medicine 11/29/22 Klaudia Montes De Oca, OD [address] [place], [place] [id number] Optometry 11/29/22 Radio Broadcaster Relationship Specialty Start Date End Date Lucita Agarwal NP [address] [place] [address] PCP - General Family Medicine 11/29/22 Klaudia Montes De Oca, OD [address] [facility] [place], [place] [id number] Optometry 11/29/22 Team Status: Active Member Role Status Dates [facility] Family Provider Active [facility] Primary Care Provider A ctive Team Status: Inactive Member Role Status Dates [facility] Primary Care Provider, Referring Provider Active Namrata Barrera NP, SANDING MACHINE TENDER-C Attending Provider Active Team Status: Inactive Member Role Status Dates [facility] Primary Care Provider A ctive Dr. Eder Castano MD Referring Provider Active Dr. Candice Rossi MD Attending Provider Active Radio Broadcaster Relationship Specialty Start Date End Date Lucita Agarwal NP [address] [facility] [place] [address] PCP - General Family Medicine 11/29/22 Klaudia Montes De Oca, OD [address] [place] [address] Optometry 11/29/22 Team Status: Inactive Member Role Status Dates [facility] Primary Care Provider, Referring Provider Active Dr. Candice Rossi MD Attending Provider Active Team Status: Inactive Member Role Status Dates [facility] Primary Care Provider A ctive Dr. Jony Taveras DO Attending Provider, Referrin g Provider Active Team Status: Active Member Role Status Dates [facility] Primary C are Provider, Family Provider, Referring Provider Active Dr. Candice Rossi MD Attending Provider Active Dr. Vinod Bustaamnte DO Other Provider Active Team Status: Inactive Member Role Status Dates [facility] Primary Care Provider A ctive Dr. Candice Rossi MD Attending Provider, Referrin g Provider Active Radio Broadcaster Relationship Specialty Start Date End Date Lucita Agarwal, SANDING MACHINE TENDER [facility] [facility] [place] [address] PCP - General Family Medicine 11/29/22 Klaudia Montes De Oca, OD [facility] [facility] [place] [address] Optometry 11/29/22 Radio Broadcaster Relationship Specialty Start Date End Date Lucita Agarwal NP [facility] [facility] [place] [address] PCP - General Family Medicine 11/29/22 Klaudia Montes De Oca, OD [facility] [facility] [place] [address] Optometry 11/29/22 Team Status: Inactive Member Role Status Dates [facility] Primary Care Provider A ctive Lucita Stefano VSC, SANDING MACHINE TENDER-C Attending Provider, Referri ng Provider Active Team Status: Active Member Role Status Dates Lucita Stefano VSC, SANDING MACHINE TENDER-C Primary Care Provider Activ e Team Status: Inactive Member Role Status Dates Lucita Stefano VSC, SANDING MACHINE TENDER-C Primary Care Provider Activ e Start: September 21, 2024 End: September 21, 2024 Lucita Agarwal VSC, SANDING MACHINE TENDER-C Referring Provider Active Start: September 21, 2024 End: September 21, 2024 Dr. Eder Castano MD Attending Provider Active Start: September 21, 2024 End: September 21, 2024 Team Status: Active Member Role Status Dates Lucitaminnie Agarwal VSC, SANDING MACHINE TENDER-C Primary Care Provider Activ e Start: September 21, 2024 End: September 21, 2024 Dr. Elijah Gold MD Attending Provider Active Start: September 21, 2024 End: September 21, 2024 Dr. Eder Castano MD Referring Provider Active Start: September 21, 2024 End: September 21, 2024 Team Status: Active Member Role Status Dates Lucita Stefano VSC, SANDING MACHINE TENDER-C Primary Care Provider Activ e Start: September 21, 2024 Lucita Agarwal VSC, SANDING MACHINE TENDER-C Referring Provider Active Start: September 21, 2024 Dr. Eder Castano MD Attending Provider Active Start: September 21, 2024 Dr. Eder Castano MD Other Provider Active Start: September 21, 2024 Team Status: Inactive Member Role Status Dates Lucita Stefano VSC, SANDING MACHINE TENDER-C Primary Care Provider Activ e Start: September 28, 2024 End: September 28, 2024 Lucita Agarwal VSC, SANDING MACHINE TENDER-C Referring Provider Active Start: September 28, 2024 End: September 28, 2024 Rhett Perry NP, SANDING MACHINE TENDER-C Attending Provider Active S tart: September 28, 2024 End: September 28, 2024 Team Status: Inactive Member Role Status Dates Lucita Stefano VSC, SANDING MACHINE TENDER-C Primary Care Provider Activ e Start: November 03, 2024 End: November 03, 2024 Lucita Agarwal VSC, SANDING MACHINE TENDER-C Attending Provider Active Start: November 03, 2024 End: November 03, 2024 Lucita Agarwal VSC, SANDING MACHINE TENDER-C Referring Provider Active Start: November 03, 2024 End: November 03, 2024 Team Status: Inactive Member Role Status Dates Lucita LEÓNC, SANDING MACHINE TENDER-C Primary Care Provider Activ e Start: November 11, 2024 End: November 11, 2024 Lucita LEÓNC, SANDING MACHINE TENDER-C Referring Provider Active Start: November 11, 2024 End: November 11, 2024 EMA Carrero Attending Provider Active Start: November 11, 2024 End: November 11, 2024 Team Status: Inactive Member Role Status Dates Lucita Agarwal VSC, SANDING MACHINE TENDER-C Primary Care Provider Activ e Start: December 02, 2024 End: December 02, 2024 EMA Carrero Attending Provider Active Start: December 02, 2024 End: December 02, 2024 EMA Carrero Referring Provider Active Start: December 02, 2024 End: December 02, 2024 Team Status: Inactive Member Role Status Dates [facility] Referring Provider Active Start: November End: December 09, 2024 Dr. Stewart Newman MD Attending Provider Active S tart: December 09, 2024 End: December 09, 2024 Lucita LEÓNC, SANDING MACHINE TENDER-C Primary Care Provider Activ e Start: December 09, 2024 End: December 09, 2024 Team Status: Inactive Member Role Status Dates Lucita LEÓNC, SANDING MACHINE TENDER-C Primary Care Provider Activ e Start: December 24, 2024 End: December 24, 2024 Dr. Stewart Newman MD Attending Provider Active S tart: December 24, 2024 End: December 24, 2024 Dr. Stewart Newman MD Referring Provider Active S tart: December 24, 2024 End: December 24, 2024 Team Status: Active Member Role Status Dates Lucita LEÓNC, SANDING MACHINE TENDER-C Primary Care Provider Activ e Start: December 24, 2024 Dr. Hang Lepe MD Attending Provider Active Start: December 24, 2024 Dr. Stewart Newman MD Referring Provider Active S tart: December 24, 2024 Team Status: Inactive Member Role Status Dates Lucita Agarwal VSC, SANDING MACHINE TENDER-C Primary Care Provider Activ e Start: February 03, 2025 End: February 03, 2025 Juliano BOO PA Attending Provider Active Sta rt: February 03, 2025 End: February 03, 2025 EMA Bailey Referring Provider Active Sta rt: February 03, 2025 End: February 03, 2025 Team Status: Inactive Member Role Status Dates Lucita Agarwal VSKaterin, SANDING MACHINE TENDER-C Primary Care Provider Activ e Start: February 03, 2025 End: February 03, 2025 Lucita LEÓNC, SANDING MACHINE TENDER-C Referring Provider Active Start: February 03, 2025 End: February 03, 2025 EMA Bailey Attending Provider Active Sta rt: February 03, 2025 End: February 03, 2025 Team Status: Inactive Member Role Status Dates Lucita Agarwal VSC, SANDING MACHINE TENDER-C Primary Care Provider Activ e Start: February 10, 2025 End: February 10, 2025 Eloy Bolanos VSC, SANDING MACHINE TENDER-C Attending Provider Active Start: February 10, 2025 End: February 10, 2025 Team Status: Inactive Member Role Status Dates Lucita LEÓNC, SANDING MACHINE TENDER-C Primary Care Provider Activ e Start: March 04, 2025 End: March 04, 2025 Dr. Candice Rossi MD Attending Provider Active Start: March 04, 2025 End: March 04, 2025 Dr. Candice Rossi MD Referring Provider Active Start: March 04, 2025 End: March 04, 2025 Team Status: Active Member Role Status Dates [facility] Primary Care Provider A ctive Start: March 10, 2025 [facility] Family Provider Active Start: March 10, 2025 [facility] Referring Provider Acti ve Start: March 10, 2025 Dr. Candice Rossi MD Attending Provider Active Start: March 10, 2025 Dr. Vinod Bustamante DO Other Provider Active Sta rt: March 10, 2025 Team Status: Inactive Member Role Status Dates Lucita CHOUDHURY, SANDING MACHINE TENDER-C Primary Care Provider Activ e Start: March 11, 2025 End: March 11, 2025 Dr. Candice Rossi MD Attending Provider Active Start: March 11, 2025 End: March 11, 2025 Dr. Candice Rossi MD Referring Provider Active Start: March 11, 2025 End: March 11, 2025 Team Status: Inactive Member Role Status Dates Lucitaminnie CHOUDHURY, SANDING MACHINE TENDER-C Primary Care Provider Activ e Start: March 18, 2025 End: March 18, 2025 Lucita CHOUDHURY, SANDING MACHINE TENDER-C Referring Provider Active Start: March 18, 2025 End: March 18, 2025 Dr. Eder Castano MD Attending Provider Active Start: March 18, 2025 End: March 18, 2025 Team Status: Inactive Member Role Status Dates Lucitaminnie CHOUDHURY, SANDING MACHINE TENDER-C Primary Care Provider Activ e Start: March 25, 2025 End: March 25, 2025 Dr. Eder Castano MD Attending Provider Active Start: March 25, 2025 End: March 25, 2025 Dr. Eder Castano MD Referring Provider Active Start: March 25, 2025 End: March 25, 2025 Team Status: Inactive Member Role Status Dates Lucita CHOUDHURY, SANDING MACHINE TENDER-C Primary Care Provider Activ e Start: April 11, 2025 End: April 11, 2025 Dr. Eder Castano MD Attending Provider Active Start: April 11, 2025 End: April 11, 2025 Dr. Eder Castano MD Referring Provider Active Start: April 11, 2025 End: April 11, 2025 Team Status: Active Member Role Status Dates Lucitafabiola CHOUDHURY, SANDING MACHINE TENDER-C Primary Care Provider Activ e Start: April 11, 2025 Dr. Eder Castano MD Attending Provider Active Start: April 11, 2025 Dr. Eder Castano MD Referring Provider Active Start: April 11, 2025 Dr. Eder Castano MD Other Provider Active Start: April 11, 2025 Team Status: Inactive Member Role Status Dates Lucitaminnie CHOUDHURY, SANDING MACHINE TENDER-C Primary Care Provider Activ e Start: April 20, 2025 End: April 20, 2025 Lucita CHOUDHURY, SANDING MACHINE TENDER-C Referring Provider Active Start: April 20, 2025 [...] BE BASED ON THE PRIMARY CLINICAL RECORDS. [facility]. provides no warranty or guarantee of the accuracy or completeness of information in this document.
--- NOTE | 2025-04-27 06:59 | ECHOD_ITS ---
Reason For Study Reason For Study: AFIB/FLUTTER Procedure This was a 2D Doppler, Color Flow transthoracic echocardiogram. Left Ventricle Normal LV size. Left ventricular systolic function is normal. The left ventricular ejection fraction is 60 %. No regional wall motion abnormalities noted. Right Ventricle Normal RV size. Normal systolic function. Atria The left atrium is severely enlarged. Normal right atrium. Mitral Valve Bileaflet diffuse mitral valve thickening. Moderate (2+) eccentric mitral valve insufficiency. Tricuspid Valve Normal tricuspid valve. Mild to moderate (1-2+) tricuspid valve insufficiency. Pulmonary artery systolic pressure is 40 mmHg. Aortic Valve Trisinus/trileaflet aortic valve. Moderate focal aortic valve thickening. Pulmonic Valve Normal pulmonic valve. Great Vessels Normal aortic root. The pulmonary artery is normal size. Inferior vena cava collapse with sniff. Pericardium/Pleural No pericardial effusion. MMode/2D Measurements & Calculations LVIDd: 5.3 cm IVSd: 1.3 cm Ao root diam: 3.5 cm LVIDs: 4.1 cm LVPWd: 0.99 cm RVDd: 2.9 cm FS: 22.9 % asc Aorta Diam: 3.6 cm LAV(MOD-bp): 108.8 ml LVAd ap4: 25.0 cm2 LAV(MOD-bp) Indexed: 57.8 ml/m2 LVLd ap4: 6.7 cm LAV(MOD-sp2): 100.6 ml EDV(MOD-sp4): 75.6 ml LAV(MOD-sp4): 113.8 ml EDV(sp4-el): 79.8 ml LVAs ap4: 13.6 cm2 LVLs ap4: 5.2 cm ESV(MOD-sp4): 31.6 ml ESV(sp4-el): 30.1 ml EF(MOD-sp4): 58.2 % EF(sp4-el): 62.3 % SV(MOD-sp4): 44.0 ml SV(sp4-el): 49.8 ml LA A4 area: 31.0 cm2 SI(MOD-sp4): 23.4 ml/m2 LA dimension(2D): 5.4 cm RA A4 area: 16.8 cm2 TAPSE: 1.5 cm Doppler Measurements & Calculations MV E max adan: 155.1 cm/sec Ao V2 max: 92.7 cm/sec AI max adan: 219.0 cm/sec Ao max P.4 mmHg AI max P.2 mmHg Ao V2 mean: 63.9 cm/sec Ao mean P.8 mmHg AI dec slope: 114.5 cm/sec2 Ao V2 VTI: 20.0 cm AI P1/2t: 560.0 msec AV (velocity ratio): 0.69 LV V1 max: 64.5 cm/sec MR max adan: 512.5 cm/sec PA V2 max: 80.9 cm/sec LV V1 max P.7 mmHg MR max P.1 mmHg PA V2 mean: 50.7 cm/sec LV V1 mean P.88 mmHg MR mean adan: 404.4 cm/sec LV V1 mean: 45.5 cm/sec MR mean P.0 mmHg LV V1 VTI: 13.7 cm MR VTI: 188.2 cm TR max adan: 300.6 cm/sec PI dec slope: 63.8 cm/sec2 TR max P.1 mmHg ECHO/Echo Complete Interpretation Summary Normal LV size. Left ventricular systolic function is normal. The left ventricular ejection fraction is 60 %. The left atrium is severely enlarged. Bileaflet diffuse mitral valve thickening. Moderate (2+) eccentric mitral valve insufficiency. Pulmonary artery systolic pressure is 40 mmHg. Ordering Physician: Rhett Perry Referring Physician: Lucita Ferreira Performed By: Ansley Schaffer, RDCS, RVT
== END | disposition home or self-care (01) ==
PROVIDERS: PCP Nurse Practitioner Family; Referring Provider Nurse Practitioner Family; Visit Provider Nurse Practitioner Family
DX: I48.0 Paroxysmal atrial fibrillation (principal); R00.2 Palpitations; R94.31 Abnormal electrocardiogram [ECG] [EKG]; D05.11 Intraductal carcinoma in situ of right breast
CPT/HCPCS: 93306

== ENCOUNTER 2025-05-02 09:54 | Day surgery (SDC) | payer MEDICARE, SELFPAY ==
[2019-02-16 09:03] VITALS: BMI 51.2
--- NOTE | 2025-04-21 19:46 | PAT.ANESEVAL ---
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 When Was Last Pacemaker Check QUESTION #4 FULL TEXT: You/Your Family Experience fever (hyperthermia) with Anesthesia Last Oral Intake Last Oral intake: Last Oral Intake NPO since Meds taken in AM with sips of water? Meds patient instructed to take am of surgery PONV PONV - grinding and spraying supervisor: PONV - grinding and spraying supervisor Female Yes 04/21/25 14:18 HX of Motion Sickness No 04/21/25 14:18 HX of N/V After Surgery No 04/21/25 14:18 Non-Smoker Yes 04/21/25 14:18 Duration of Surgery greater No 04/21/25 14:18 than 60 minutes Number of Risk Factors 2 04/21/25 14:18 PONV Score Moderate Risk 04/21/25 14:18 Height & Weight Height & Weight: Anesthesia: Height & Weight Height 4 ft 11 in 04/20/25 09:56 Respiratory Assessment Respiratory Assessment - grinding and spraying supervisor: Respiratory Tract Infection Hx - grinding and spraying supervisor Hx Respiratory Tract Infection No 04/21/25 14:18 STOP Sleep Apnea STOP Sleep Apnea - grinding and spraying supervisor: STOP Sleep Apnea - grinding and spraying supervisor Hx Hypertension Yes: CONTROLLED WITH MEDS 04/21/25 14:18 Hx Sleep Apnea Yes 04/21/25 14:18 CPAP Yes 04/21/25 14:18 BIPAP No 04/21/25 14:18 Do you snore loudly (louder than talking or can be heard Do you often feel tired/ fatigued/ sleepy during daytime? Has anyone observed you stop breathing during sleep? STOP Results Positive 04/21/25 14:18 QUESTION #5 FULL TEXT : Do you snore loudly (louder than talking or can be heard through closed doors)? 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 Specify any problems Hx of Preganancy in last 3 No 04/21/25 14:18 Months Nurse Filling Out Transfusion [id number] 04/21/25 14:18 & Questions: Date: 04/21/25 04/21/25 14:18 Time: 14:22 04/21/25 14:18 Patient unable to answer at this time (ie. confused, unrespo /Reproduction History /Reproductive History - grinding and spraying supervisor: /Reproductive Hx- grinding and spraying supervisor Hx Now Gestational Age (in weeks): EDC: Hx Hx Para Hx Section SAB PFSH Medical History (Updated 04/21/25 @ 14:29 by George Lemons) History of Holter monitoring Gastric reflux History of CHF (congestive heart failure) History of atrial fibrillation Left breast mass Wears glasses Cancer Diabetes Arthritis High cholesterol Non-smoker CPAP (continuous positive airway pressure) dependence Sleep apnea Shortness of breath on exertion History of edema History of stress test Cardiology follow-up encounter History of echocardiogram Preoperative cardiovascular examination Skin cancer (melanoma) ER+ (estrogen receptor positive status) 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 cancer Hypertension Osteopenia due to cancer therapy Bradycardia KRISTY (obstructive sleep apnea) DCIS (ductal carcinoma in situ) Breast cancer, right Nonrheumatic mitral (valve) insufficiency Obstructive sleep apnea Type 2 diabetes mellitus Osteoarthritis Hyperlipidemia Asthma Obesity Essential hypertension Home Medications ?Medication ?Instructions ?Recorded ?Last Taken ?Type aspirin 81 mg tablet,delayed 81 mg PO DAILY@0800 health 06/11/17 09/15/24 History release maintenance montelukast 10 mg tablet 10 mg PO DAILY allergies 06/11/17 08/22/17 08:00 History albuterol sulfate 90 mcg/actuation 2 puff inhalation Q4H PRN PRN Sob 08/23/17 Unknown Rx aerosol inhaler &/Or Wheezing ##1 ascorbate calcium (vitamin C) 500 1 gm PO DAILY Check with primary 02/14/21 Unknown History mg tablet doctor fexofenadine 180 mg tablet 180 mg PO DAILY PRN allergy 02/14/21 Unknown History (Rubi Allergy) symptoms pravastatin 40 mg tablet 40 mg PO QHS Check with primary 02/14/21 Unknown History doctor atenolol 50 mg tablet 50 mg PO DAILY Check with primary 10/04/21 Unknown History doctor hydrochlorothiazide 25 mg tablet 25 mg PO DAILY 04/22/22 Unknown History lisinopril 40 mg tablet 40 mg PO DAILY 04/22/22 Unknown History omeprazole 20 mg capsule,delayed 20 mg PO DAILY Check with primary 04/22/22 Unknown History release doctor biotin 1,000 mcg chewable tablet 1,000 mcg PO DAILY 01/23/23 Unknown History oxybutynin chloride 10 mg 10 mg PO DAILY 09/04/23 Unknown History tablet,extended release 24 hr meloxicam 15 mg tablet 15 mg PO DAILY 09/16/23 Unknown History metformin 500 mg tablet,extended 500 mg PO DAILY 09/16/23 Unknown History release 24 hr apixaban 5 mg tablet (Eliquis) 5 mg PO BID #60 tabs 09/22/24 Unknown Rx amlodipine 5 mg tablet 5 mg PO QDAY 09/28/24 Unknown History calcium 200 mg (as 1 tab PO DAILY 09/28/24 Unknown History carbonate)-magnesium 100 mg chewable tablet (Riley-Mag) cholecalciferol (vitamin D3) 25 25 mcg PO QDAY 09/28/24 Unknown History mcg (1,000 unit) tablet cyanocobalamin (vitamin B-12) 1,000 mcg PO QDAY 09/28/24 Unknown History 1,000 mcg tablet fluticasone 500 mcg-salmeterol 50 1 ea inhalation BID PRN Sob &/Or 09/28/24 Unknown History mcg/dose blistr powdr for Wheezing inhalation ipratropium 0.5 mg-albuterol 3 mg 3 ml inhalation Q6H PRN shortness 04/21/25 Unknown History (2.5 mg base)/3 mL nebulization of breath or wheezing soln Allergy/AdvReac Type Severity Reaction Status Date / Time adhesive tape (plastic tape) AdvReac Severe Other Verified 04/21/25 14:13 cephalexin AdvReac Severe Rash Verified 04/21/25 14:13 clindamycin AdvReac Severe Rash Verified 04/21/25 14:13 Penicillins AdvReac Severe Rash Verified 04/21/25 14:13 Sulfa (Sulfonamide AdvReac Severe Rash Verified 04/21/25 14:13 Antibiotics) Family History Mother Heart disease Breast cancer PER PATIENT MOTHER DID NOT HAVE BREAST CANCER Aunt Breast cancer Sister Breast cancer Asthma Father Colon cancer Brother Colon cancer Other Cancer Surgical History History of surgery on lower extremity History of colonoscopy History of esophagogastroduodenoscopy (EGD) History of cataract extraction History of right cataract extraction (~02/2023) S/P skin biopsy History of lumpectomy of right breast (01/15/19) History of breast biopsy (12/2018) History of ankle surgery History of tubal ligation Hx of cholecystectomy Social History household members: spouse and children housing: house number of children: 6 Smoking Status: Never smoker second hand exposure: No alcohol intake: never substance use type: does not use caffeine: No emanuel/yazidism: Sabianism seatbelt use: always do you feel safe at home: Yes Audit: Pertinent Findings Pertinent Findings EKG Perinent findings: December 09, 2024. Atrial fibrillation. Frequent PVCs and ventricular trigeminy. Nonspecific T wave abnormality. Echo (EF%) pertinent findings: February 28, 2021. EF of 60%. No aortic stenosis noted. Consult pertinent findings: December 09, 2024. Dr. Newman. 1. Atrial fibrillation?acute-first diagnosed in August 2024. [id number] score is 4. (EKG and echo as above.) will repeat echo. 2. Hypertension?[id number]-[id number]. Additional pertinent findings: Holter monitor. 12/24/2024. Predominant rhythm is atrial fibrillation. 5.2% of the QRS complexes are ventricular ectopic beats. 94.8% of the QRS complexes are atrial fibrillation. No symptoms recorded in patient diary. Recommendation Anesthesia Recommendation Anesthesia recommendation: F/U recommended (Cardiology note from November indicates a repeat echo. Was this ever done? Also cannot find the stress test.)
--- NOTE | 2025-04-22 10:40 | PAT.ANESEVAL ---
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 When Was Last Pacemaker Check QUESTION #4 FULL TEXT: You/Your Family Experience fever (hyperthermia) with Anesthesia Last Oral Intake Last Oral intake: Last Oral Intake NPO since Meds taken in AM with sips of water? Meds patient instructed to take am of surgery PONV PONV - it desktop support technician: PONV - it desktop support technician Female Yes 04/21/25 14:18 HX of Motion Sickness No 04/21/25 14:18 HX of N/V After Surgery No 04/21/25 14:18 Non-Smoker Yes 04/21/25 14:18 Duration of Surgery greater No 04/21/25 14:18 than 60 minutes Number of Risk Factors 2 04/21/25 14:18 PONV Score Moderate Risk 04/21/25 14:18 Height & Weight Height & Weight: Anesthesia: Height & Weight Height 4 ft 11 in 04/20/25 09:56 Respiratory Assessment Respiratory Assessment - it desktop support technician: Respiratory Tract Infection Hx - it desktop support technician Hx Respiratory Tract Infection No 04/21/25 14:18 STOP Sleep Apnea STOP Sleep Apnea - it desktop support technician: STOP Sleep Apnea - it desktop support technician Hx Hypertension Yes: CONTROLLED WITH MEDS 04/21/25 14:18 Hx Sleep Apnea Yes 04/21/25 14:18 CPAP Yes 04/21/25 14:18 BIPAP No 04/21/25 14:18 Do you snore loudly (louder than talking or can be heard Do you often feel tired/ fatigued/ sleepy during daytime? Has anyone observed you stop breathing during sleep? STOP Results Positive 04/21/25 14:18 QUESTION #5 FULL TEXT : Do you snore loudly (louder than talking or can be heard through closed doors)? 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 Specify any problems Hx of Preganancy in last 3 No 04/21/25 14:18 Months Nurse Filling Out Transfusion [email or web address] 04/21/25 14:18 & Questions: Date: 04/21/25 04/21/25 14:18 Time: 14:22 04/21/25 14:18 Patient unable to answer at this time (ie. confused, unrespo /Reproduction History /Reproductive History - it desktop support technician: /Reproductive Hx- it desktop support technician Hx Now Gestational Age (in weeks): EDC: Hx Hx Para Hx Section SAB PFSH Medical History (Updated 04/21/25 @ 14:29 by George Lemons) History of Holter monitoring Gastric reflux History of CHF (congestive heart failure) History of atrial fibrillation Left breast mass Wears glasses Cancer Diabetes Arthritis High cholesterol Non-smoker CPAP (continuous positive airway pressure) dependence Sleep apnea Shortness of breath on exertion History of edema History of stress test Cardiology follow-up encounter History of echocardiogram Preoperative cardiovascular examination Skin cancer (melanoma) ER+ (estrogen receptor positive status) 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 cancer Hypertension Osteopenia due to cancer therapy Bradycardia KRISTY (obstructive sleep apnea) DCIS (ductal carcinoma in situ) Breast cancer, right Nonrheumatic mitral (valve) insufficiency Obstructive sleep apnea Type 2 diabetes mellitus Osteoarthritis Hyperlipidemia Asthma Obesity Essential hypertension Home Medications ?Medication ?Instructions ?Recorded ?Last Taken ?Type aspirin 81 mg tablet,delayed 81 mg PO DAILY@0800 health 06/11/17 09/15/24 History release maintenance montelukast 10 mg tablet 10 mg PO DAILY allergies 06/11/17 08/22/17 08:00 History albuterol sulfate 90 mcg/actuation 2 puff inhalation Q4H PRN PRN Sob 08/23/17 Unknown Rx aerosol inhaler &/Or Wheezing ##1 ascorbate calcium (vitamin C) 500 1 gm PO DAILY Check with primary 02/14/21 Unknown History mg tablet doctor fexofenadine 180 mg tablet 180 mg PO DAILY PRN allergy 02/14/21 Unknown History (Rubi Allergy) symptoms pravastatin 40 mg tablet 40 mg PO QHS Check with primary 02/14/21 Unknown History doctor atenolol 50 mg tablet 50 mg PO DAILY Check with primary 10/04/21 Unknown History doctor hydrochlorothiazide 25 mg tablet 25 mg PO DAILY 04/22/22 Unknown History lisinopril 40 mg tablet 40 mg PO DAILY 04/22/22 Unknown History omeprazole 20 mg capsule,delayed 20 mg PO DAILY Check with primary 04/22/22 Unknown History release doctor biotin 1,000 mcg chewable tablet 1,000 mcg PO DAILY 01/23/23 Unknown History oxybutynin chloride 10 mg 10 mg PO DAILY 09/04/23 Unknown History tablet,extended release 24 hr meloxicam 15 mg tablet 15 mg PO DAILY 09/16/23 Unknown History metformin 500 mg tablet,extended 500 mg PO DAILY 09/16/23 Unknown History release 24 hr apixaban 5 mg tablet (Eliquis) 5 mg PO BID #60 tabs 09/22/24 Unknown Rx amlodipine 5 mg tablet 5 mg PO QDAY 09/28/24 Unknown History calcium 200 mg (as 1 tab PO DAILY 09/28/24 Unknown History carbonate)-magnesium 100 mg chewable tablet (Riley-Mag) cholecalciferol (vitamin D3) 25 25 mcg PO QDAY 09/28/24 Unknown History mcg (1,000 unit) tablet cyanocobalamin (vitamin B-12) 1,000 mcg PO QDAY 09/28/24 Unknown History 1,000 mcg tablet fluticasone 500 mcg-salmeterol 50 1 ea inhalation BID PRN Sob &/Or 09/28/24 Unknown History mcg/dose blistr powdr for Wheezing inhalation ipratropium 0.5 mg-albuterol 3 mg 3 ml inhalation Q6H PRN shortness 04/21/25 Unknown History (2.5 mg base)/3 mL nebulization of breath or wheezing soln Allergy/AdvReac Type Severity Reaction Status Date / Time adhesive tape (plastic tape) AdvReac Severe Other Verified 04/21/25 14:13 cephalexin AdvReac Severe Rash Verified 04/21/25 14:13 clindamycin AdvReac Severe Rash Verified 04/21/25 14:13 Penicillins AdvReac Severe Rash Verified 04/21/25 14:13 Sulfa (Sulfonamide AdvReac Severe Rash Verified 04/21/25 14:13 Antibiotics) Family History Mother Heart disease Breast cancer PER PATIENT MOTHER DID NOT HAVE BREAST CANCER Aunt Breast cancer Sister Breast cancer Asthma Father Colon cancer Brother Colon cancer Other Cancer Surgical History History of surgery on lower extremity History of colonoscopy History of esophagogastroduodenoscopy (EGD) History of cataract extraction History of right cataract extraction (~02/2023) S/P skin biopsy History of lumpectomy of right breast (01/15/19) History of breast biopsy (12/2018) History of ankle surgery History of tubal ligation Hx of cholecystectomy Social History household members: spouse and children housing: house number of children: 6 Smoking Status: Never smoker second hand exposure: No alcohol intake: never substance use type: does not use caffeine: No emanuel/congregation: Sikhism seatbelt use: always do you feel safe at home: Yes Audit: Pertinent Findings HISTORY of Pertinent Findings History of Pertinent Findings: EKG Pertinent Findings EKG Perinent findings December 09, 2024. Atrial 04/21/25 19:51 fibrillation. Frequent PVCs and ventricular trigeminy. Nonspecific T wave abnormality. Echo Pertinent Findings Echo (EF%) pertinent findings February 28, 2021. EF of 60%. No 04/21/25 19:51 aortic stenosis noted. Consult Pertinent Findings Consult pertinent findings December 09, 2024. 04/21/25 19:57 [place]. 1. Atrial fibrillation? acute-first diagnosed in August 2024. [id number] score is 4. (EKG and echo as above.) will repeat echo. 2. Hypertension?chronic- well-controlled. Additional Pertinent Findings Additional pertinent findings Holter monitor. 12/24/2024. 04/21/25 19:57 Predominant rhythm is atrial fibrillation. 5.2% of the QRS complexes are ventricular ectopic beats. 94.8% of the QRS complexes are atrial fibrillation. No symptoms recorded in patient diary. Recommendation Anesthesia Recommendation Anesthesia recommendation: F/U recommended (Patient should have her echo that was requested back in November 2024. If this is an emergency, patient needs to be cleared by cardiology and echo waived.)
--- NOTE | 2025-04-27 19:02 | PAT.ANE_ITS ---
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 When Was Last Pacemaker Check QUESTION #4 FULL TEXT: You/Your Family Experience fever (hyperthermia) with Anesthesia Last Oral Intake Last Oral intake: Last Oral Intake NPO since Meds taken in AM with sips of water? 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 Has anyone observed you stop breathing during sleep? STOP Results Positive 04/21/25 14:18 QUESTION #5 FULL TEXT : Do you snore loudly (louder than talking or can be heard through closed doors)? 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 Specify any problems Hx of Preganancy in last 3 No 04/21/25 14:18 Months Nurse Filling Out Transfusion [id number] 04/21/25 14:18 & Questions: Date: 04/21/25 04/21/25 14:18 Time: 14:22 04/21/25 14:18 Patient unable to answer at this time (ie. 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 Eder Castano MD) History of Holter monitoring Gastric reflux History of CHF (congestive heart failure) History of atrial fibrillation Left breast mass Wears glasses Cancer Diabetes Arthritis High cholesterol Non-smoker CPAP (continuous positive airway pressure) dependence Sleep apnea Shortness of breath on exertion History of edema History of stress test Cardiology follow-up encounter History of echocardiogram Preoperative cardiovascular examination Skin cancer (melanoma) ER+ (estrogen receptor positive status) 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 cancer Hypertension Osteopenia due to cancer therapy Bradycardia KRISTY (obstructive sleep apnea) DCIS (ductal carcinoma in situ) Breast cancer, right Nonrheumatic mitral (valve) insufficiency Obstructive sleep apnea Type 2 diabetes mellitus Osteoarthritis Hyperlipidemia Asthma Obesity Essential hypertension Home Medications ?Medication ?Instructions ?Recorded ?Last Taken ?Type aspirin 81 mg tablet,delayed 81 mg PO DAILY@0800 healt h 06/11/17 09/15/24 History release maintenance montelukast 10 mg tablet 10 mg PO DAILY allergies 08/22/17 08:00 History albuterol sulfate 90 mcg/actuation 2 puff inhalation Q 4H PRN PRN Sob 08/23/17 Unknown Rx aerosol inhaler &/Or Wheezing ##1 ascorbate calcium (vitamin C) 500 1 gm PO DAILY Check with primary 02/14/21 Unknown History mg tablet doctor fexofenadine 180 mg tablet 180 mg PO DAILY PRN allergy 02/14/21 Unknown History (Rubi Allergy) symptoms pravastatin 40 mg tablet 40 mg PO QHS Check with prim holden 02/14/21 Unknown History doctor atenolol 50 mg tablet 50 mg PO DAILY Check with pr imary 10/04/21 Unknown History doctor hydrochlorothiazide 25 mg tablet 25 mg PO DAILY Unknown History lisinopril 40 mg tablet 40 mg PO DAILY 04/22/22 Unkn own History omeprazole 20 mg capsule,delayed 20 mg PO DAILY Check with primary 04/22/22 Unknown History release doctor biotin 1,000 mcg chewable tablet 1,000 mcg PO DAILY Unknown History oxybutynin chloride 10 mg 10 mg PO DAILY 09/04/23 Unkn own History tablet,extended release 24 hr meloxicam 15 mg tablet 15 mg PO DAILY 09/16/23 Unkn own History metformin 500 mg tablet,extended 500 mg PO DAILY 09/16 Unknown History release 24 hr apixaban 5 mg tablet (Eliquis) 5 mg PO BID #60 tabs Unknown Rx amlodipine 5 mg tablet 5 mg PO QDAY 09/28/24 Unknow n History calcium 200 mg (as 1 tab PO DAILY 09/28/24 Unkn own History carbonate)-magnesium 100 mg chewable tablet (Riley-Mag) cholecalciferol (vitamin D3) 25 25 mcg PO QDAY 4 Unknown History mcg (1,000 unit) tablet cyanocobalamin (vitamin B-12) 1,000 mcg PO QDAY Unknown History 1,000 mcg tablet fluticasone 500 mcg-salmeterol 50 1 ea inhalation BID PRN Sob &/Or 09/28/24 Unknown History mcg/dose blistr powdr for Wheezing inhalation ipratropium 0.5 mg-albuterol 3 mg 3 ml inhalation Q6H PRN shortness 04/21/25 Unknown History (2.5 mg base)/3 mL nebulization of breath or wheezing soln Allergy/AdvReac Type Severity Reaction Status Date / Time adhesive tape (plastic tape) AdvReac Severe Other Verified 04/21/25 14:13 cephalexin AdvReac Severe Rash Verified 04/21/25 14:13 clindamycin AdvReac Severe Rash Verified 04/21/25 14:13 Penicillins AdvReac Severe Rash Verified 04/21/25 14:13 Sulfa (Sulfonamide AdvReac Severe Rash Verified 04/21/25 14:13 Antibiotics) Family History Mother Heart disease Breast cancer PER PATIENT MOTHER DID NOT HAVE BREAST CANCER Aunt Breast cancer Sister Breast cancer Asthma Father Colon cancer Brother Colon cancer Other Cancer Surgical History History of surgery on lower extremity History of colonoscopy History of esophagogastroduodenoscopy (EGD) History of cataract extraction History of right cataract extraction (~02/2023) S/P skin biopsy History of lumpectomy of right breast (01/15/19) History of breast biopsy (12/2018) History of ankle surgery History of tubal ligation Hx of cholecystectomy Social History household members: spouse and children housing: house number of children: 6 Smoking Status: Never smoker second hand exposure: No alcohol intake: never substance use type: does not use caffeine: No emanuel/taoism: Samaritan seatbelt use: always do you feel safe at home: Yes Audit: Pertinent Findings HISTORY of Pertinent Findings History of Pertinent Findings: EKG Pertinent Findings EKG Perinent findings December 09, 2024. Atrial 04/21/25 19:51 fibrillation. Frequent PVCs and ventricular trigeminy. Nonspecific T wave abnormality. Echo Pertinent Findings Echo (EF%) pertinent findings February 28, 2021. EF of 60%. No 04/21/25 19:51 aortic stenosis noted. Consult Pertinent Findings Consult pertinent findings December 09, 2024. 04/21/25 19:57 [place]. 1. Atrial fibrillation? acute-first diagnosed in August 2024. [id number] score is 4. (EKG and echo as above.) will repeat echo. 2. Hypertension?chronic- well-controlled. Additional Pertinent Findings Additional pertinent findings Holter monitor. 12/24/2024. 04/21/25 19:57 Predominant rhythm is atrial fibrillation. 5.2% of the QRS complexes are ventricular ectopic beats. 94.8% of the QRS complexes are atrial fibrillation. No symptoms recorded in patient diary. Pertinent Findings Echo (EF%) pertinent findings: April 27, 2025. EF of 60%. PASP is 40 mmHg. No aortic stenosis is noted. Recommendation Anesthesia Recommendation Anesthesia recommendation: OPTIMIZED for anesthesia
[2025-05-02] VITALS (9 sets, daily range): BP systolic 109–162; BP diastolic 63–80; PULSE 54–86; RESP 14–16; TEMP 36.1–36.4; O2SAT 91–100; BMI 39.9
--- NOTE | 2025-05-02 10:34 | PCM.HP.BLA ---
History and Physical Date of Admission: 05/02/25 Intake Vital Signs 03/18/2512:28 04/20/2509:56 Height 4 ft 11 in 4 ft 11 in Weight: 197 lb 8 oz 198 lb BMI 39.9 39.9 BP 142/81 H 147/82 H Blood Pressure Location Rt brachial Rt brachial Position Sitting Sitting Respiration 18 17 Pulse 52 L 86 Pulse Source Monitor Monitor Temp 97.1 F L Temp Source Temporal Pulse Oximetry (%) 97 93 Oxygen Delivery Method room air room air Intake Visit Reasons: DISCUSS BREAST SURGERY Chief Complaint: discuss breast surgery Is patient in pain?: No Allergies adhesive tape (plastic tape) Adverse Reaction (Severe, Verified 04/21/25 14:13) Othercephalexin Adverse Reaction (Severe, Verified 04/21/25 14:13) Rashclindamycin Adverse Reaction (Severe, Verified 04/21/25 14:13) RashPenicillins Adverse Reaction (Severe, Verified 04/21/25 14:13) RashSulfa (Sulfonamide Antibiotics) Adverse Reaction (Severe, Verified 04/21/25 14:13) Rash Medications ?Medication ?Instructions ?Recorded ?Confirmed ?Type aspirin 81 mg tablet,delayed 81 mg PO DAILY@0800 health 06/11/17 04/21/25 History release maintenance montelukast 10 mg tablet 10 mg PO DAILY allergies 06/11/17 04/21/25 History albuterol sulfate 90 mcg/actuation 2 puff inhalation Q4H PRN PRN Sob 08/23/17 04/21/25 Rx aerosol inhaler &/Or Wheezing ##1 ascorbate calcium (vitamin C) 500 1 gm PO DAILY Check with primary 02/14/21 04/21/25 History mg tablet doctor fexofenadine 180 mg tablet 180 mg PO DAILY PRN allergy 02/14/21 04/21/25 History (Rubi Allergy) symptoms pravastatin 40 mg tablet 40 mg PO QHS Check with primary 02/14/21 04/21/25 History doctor atenolol 50 mg tablet 50 mg PO DAILY Check with primary 10/04/21 04/21/25 History doctor hydrochlorothiazide 25 mg tablet 25 mg PO DAILY 04/22/22 04/21/25 History lisinopril 40 mg tablet 40 mg PO DAILY 04/22/22 04/21/25 History omeprazole 20 mg capsule,delayed 20 mg PO DAILY Check with primary 04/22/22 04/21/25 History release doctor biotin 1,000 mcg chewable tablet 1,000 mcg PO DAILY 01/23/23 04/21/25 History oxybutynin chloride 10 mg 10 mg PO DAILY 09/04/23 04/21/25 History tablet,extended release 24 hr meloxicam 15 mg tablet 15 mg PO DAILY 09/16/23 04/21/25 History metformin 500 mg tablet,extended 500 mg PO DAILY 09/16/23 04/21/25 History release 24 hr apixaban 5 mg tablet (Eliquis) 5 mg PO BID #60 tabs 09/22/24 04/21/25 Rx amlodipine 5 mg tablet 5 mg PO QDAY 09/28/24 04/21/25 History calcium 200 mg (as 1 tab PO DAILY 09/28/24 04/21/25 History carbonate)-magnesium 100 mg chewable tablet (Rliey-Mag) cholecalciferol (vitamin D3) 25 25 mcg PO QDAY 09/28/24 04/21/25 History mcg (1,000 unit) tablet cyanocobalamin (vitamin B-12) 1,000 mcg PO QDAY 09/28/24 04/21/25 History 1,000 mcg tablet fluticasone 500 mcg-salmeterol 50 1 ea inhalation BID PRN Sob &/Or 09/28/24 04/21/25 History mcg/dose blistr powdr for Wheezing inhalation ipratropium 0.5 mg-albuterol 3 mg 3 ml inhalation Q6H PRN shortness 04/21/25 04/21/25 History (2.5 mg base)/3 mL nebulization of breath or wheezing soln Have you fallen in the past year?: No [facility] Medical History (Updated 04/26/25 @ 13:[address] Eder Castano MD) History of Holter monitoring Gastric reflux History of CHF (congestive heart failure) History of atrial fibrillation Left breast mass Wears glasses Cancer Diabetes Arthritis High cholesterol Non-smoker CPAP (continuous positive airway pressure) dependence Sleep apnea Shortness of breath on exertion History of edema History of stress test Cardiology follow-up encounter History of echocardiogram Preoperative cardiovascular examination Skin cancer (melanoma) ER+ (estrogen receptor positive status) 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 cancer Hypertension Osteopenia due to cancer therapy Bradycardia KRISTY (obstructive sleep apnea) DCIS (ductal carcinoma in situ) Breast cancer, right Nonrheumatic mitral (valve) insufficiency Obstructive sleep apnea Type 2 diabetes mellitus Osteoarthritis Hyperlipidemia Asthma Obesity Essential hypertension Surgical History History of surgery on lower extremity History of colonoscopy History of esophagogastroduodenoscopy (EGD) History of cataract extraction History of right cataract extraction (~02/2023) S/P skin biopsy History of lumpectomy of right breast (01/15/19) History of breast biopsy (12/2018) History of ankle surgery History of tubal ligation Hx of cholecystectomy Family History Mother Heart disease Breast cancer PER PATIENT MOTHER DID NOT HAVE BREAST CANCER Aunt Breast cancerSister Breast cancer AsthmaFather Colon cancerBrother Colon cancerOther Cancer Social History household members: spouse and children housing: house number of children: 6 Smoking Status: Never smoker second hand exposure: No alcohol intake: never substance use type: does not use caffeine: No emanuel/mormon: Bahai seatbelt use: always do you feel safe at home: Yes HPI HPI HPI: Patient is a 74-year-old female who recently had a stereotactic biopsy which revealed DCIS. ROS General General: Yes weight change and breast cancer; No appetite, fatigue, colon cancer or weakness HEENT HEENT: Yes difficulty swallowing and eye surgery; No eye injury, swollen glands or hoarseness Endo Endocrine: Yes diabetes mellitus; No thyroid disease, thyroid cancer, Hair loss, heat intolerance or cold intolerance Skin Skin: No rash or changing moles Breast Breast: Yes abnormal mammogram; No left breast lump, right breast lump, nipple discharge, breast pain, abnormal US or breast enlargement Additional Details: Left Musc Musculoskeletal: Yes arthritis and rheumatoid arthritis; No back problems, gout or joint pain Cardio Cardiovascular: Yes high blood pressure; No murmur, pacemaker, heart disease, atrial fibrillation, heart attack, heart stent, palpitations, shortness of breath with exertion or chest pain Psych Psychiatric: No depression, anxiety or hearing voices Resp Respiratory: Yes shortness of breath, Yes sleep apnea, No cough, No COPD, Yes asthma, No emphysema and No wheezing Gastro Gastrointestinal: No abdominal pain, No nausea or vomiting, No diarrhea, No constipation, No blood in stool, Yes acid reflux, No hemorrhoids, No ulcers, No gallbladder problem and No black,tarry stools Damon Hematologic: Yes blood thinners, No blood disorders, No bleeding, No anemia and No blood clots Neuro Neurologic: No system reviewed and no additional complaints, except as documented, No as per HPI, No abnormal gait, No abnormal hearing, No abnormal movements, No abnormal speech, No behavioral changes, No burning sensations, No confusion, No convulsions, No disequilibrium, No dizziness, No localized weakness, No frequent falls, No headache(s), No lack of coordination, No loss of vision, No memory loss, No numbness, No other visual disturbances, No radicular pain, No restless legs, No sensory deficit, No syncope, No tingling, No tremor(s), No weakness and No other Exam Const General: cooperative Orientation: alert and oriented x3 HENMT Head: normal to inspection Neck Neck: normal visual inspection and full ROM Chest Chest palpation & inspection: normal inspection of the chest Resp Effort & Inspection: normal respiratory effort Auscultation: clear to auscultation bilaterally Cardio Rate: regular rate Rhythm: regular rhythm GI Inspection: non-distended Palpation: soft and nontender Skin General: no rashes or lesions noted Neuro General: patient alert and patient oriented x3 Extrem General: full ROM Psych Appearance: grossly normal Mental Status: mental status grossly normal Assessment and Plan Assessment and Plan (1) Ductal carcinoma in situ (DCIS) of left breast: Status: Acute Plan: Patient has DCIS of the left breast which was found on stereotactic biopsy. I discussed performing a stereotactic wire localization and then excisional biopsy of this to check for invasive cancer. I informed her that if there was any invasive cancer she would need to come back for axillary sentinel lymph node biopsy. I discussed the procedure in detail as well as the risks of bleeding, infection, injury to underlying organs, hematoma formation. Patient understands the risks and is willing to proceed. She will hold her aspirin for 5 days prior to the procedure. Eder Castano MD Pager: [facility] [address] [place] [address], [address] [place] [address] Office: I have examined the patient and the H&P has been reviewed. There are no clinical changes since date of exam.
--- NOTE | 2025-05-02 10:50 | PRE.ANES_ITS ---
ASA Classification* ASA Classification ASA Classification: 3 Assessment & Plan Anesthesia* Anesthesia Assessment Anesthesia Assessment: Discussed sedation and/or anesthesia options, risks, benefits, and alternatives with patient/parents/legal guardian/POA. Questions invited. The patient/parents/legal guardian/POA seems to understand and agrees to proceed with anesthesia plan. Reviewed the physical assessment, medical history, allergy history and patient home medications list prior to surgery/procedure/anesthetic and documented any changes. Performed airway and anesthesia risk assessments. Anesthesia Type Anesthesia Type: General Anesthesia Focused Assessment* Airway Assessment Mouth opens: >3 cm Mallampati Score: II Labs Anesthesia Preop lab: CBC WBC 6.9 K/mm3 (4.4-11.0) 03/10/25 12:47 03/10/25 RBC 4.31 M/mm3 (4.2-5.4) 03/10/25 12:47 03/10/25 Hgb 13.1 g/dL (12.0-15.0) 03/10/25 12:47 03/10/25 Hct 39.1 % (37-47) 03/10/25 12:47 03/10/25 Plt Count 193 K/mm3 (150-450) 03/10/25 12:47 03/10/25 CHEMISTRY Potassium 4.2 mmol/L (3.3-5.1) 03/10/25 12:47 03/10/25 Sodium 141 mmol/L (133-145) 03/10/25 12:47 03/10/25 Magnesium 1.8 mg/dL (1.6-2.6) 10/06/21 07:05 10/06/21 BUN 18 mg/dL (4-19) 03/10/25 12:47 03/10/25 Creatinine 0.63 mg/dL (0.70-1.20) L 03/10/25 12:47 Glucose 103 mg/dL (70-99) H 03/10/25 12:47 03/10/25 POC Glucose 116 mg/dL (74-106) H 09/21/24 07:13 09/21/24 TSH 1.650 uIU/mL (0.358-3.740) 08/03/24 09:45 06/19 COAG Pre-Assessment Diagnosis/Proposed Procedure Planned Operative Procedure(s): STEREO WIRE LOC, LUMPECTOMY LEFT BREAST Anesthesia History Anesthesia History - alumni coordinator: Anesthesia History - alumni coordinator Hx Hospitalization No 04/21/25 14:18 Any Problems With Anesthesia No 04/21/25 14:18 Cholinesterase deficiency No 04/21/25 14:18 You/Your Family Experience No 04/21/25 14:18 fever (hyperthermia) with Relationship Recent Exposure to Contagious No 09/21/24 07:10 Disease Does patient have nerve No 04/21/25 14:18 stimulator Patient instructed to have device shut off --Does patient have Pacemaker or ICD? When Was Last Pacemaker Check QUESTION #4 FULL TEXT: You/Your Family Experience fever (hyperthermia) with Anesthesia Last Oral Intake Last Oral intake: Last Oral Intake NPO since Meds taken in AM with sips of water? Meds patient instructed to take am of surgery PONV PONV - alumni coordinator: PONV - alumni coordinator Female Yes 04/21/25 14:18 HX of Motion Sickness No 04/21/25 14:18 HX of N/V After Surgery No 04/21/25 14:18 Non-Smoker Yes 04/21/25 14:18 Duration of Surgery greater No 04/21/25 14:18 than 60 minutes Number of Risk Factors 2 04/21/25 14:18 PONV Score Moderate Risk 04/21/25 14:18 Height & Weight Height & Weight: Anesthesia: Height & Weight Height 4 ft 11 in 04/20/25 09:56 Respiratory Assessment Respiratory Assessment - alumni coordinator: Respiratory Tract Infection Hx - alumni coordinator Hx Respiratory Tract Infection No 04/21/25 14:18 STOP Sleep Apnea STOP Sleep Apnea - alumni coordinator: STOP Sleep Apnea - alumni coordinator Hx Hypertension Yes: CONTROLLED WITH MEDS 04/21/25 14:18 Hx Sleep Apnea Yes 04/21/25 14:18 CPAP Yes 04/21/25 14:18 BIPAP No 04/21/25 14:18 Do you snore loudly (louder than talking or can be heard Do you often feel tired/ fatigued/ sleepy during daytime? Has anyone observed you stop breathing during sleep? STOP Results Positive 04/21/25 14:18 QUESTION #5 FULL TEXT : Do you snore loudly (louder than talking or can be heard through closed doors)? Tobacco Use History Tobacco Use History - alumni coordinator: Tobacco Use History - alumni coordinator Tobacco Use Non-smoker 08/09/20 14:50 Smoking Status Never smoker 04/21/25 14:18 Hx Tobacco Use No 04/21/25 14:18 Years Smoking Packs Smoked per Day Smoking Cessation Date was within the last 15 years Hx Smoking Cessation Date Hx Smoking Cessation Counseling Hematologic Medial History Hematologic Hx - alumni coordinator: Hematologic Medical Hx - supervisor lime Hx of Blood Transfusion No 04/21/25 14:18 Hx of Transfusion in last 3 No 04/21/25 14:18 Months Date of Last Transfusion (if within last 3 months) Ever experience any problems No 04/21/25 14:18 with transfusion(s)? Specify any problems Hx of Preganancy in last 3 No 04/21/25 14:18 Months Nurse Filling Out Transfusion [email or web address] 04/21/25 14:18 & Questions: Date: 04/21/25 04/21/25 14:18 Time: 14:22 04/21/25 14:18 Patient unable to answer at this time (ie. confused, unrespo /Reproduction History /Reproductive History - alumni coordinator: /Reproductive Hx- alumni coordinator Hx Now Gestational Age (in weeks): EDC: Hx Hx Para Hx Section SAB Active Medications Active Medications: Current Medications Generic Name Dose Route Start Last Admin Trade Name Freq PRN Reason Stop Dose Admin Clindamycin Phosphate 900 mg in 50 mls @ 75 mls/hr 05/02/25 12:00 Cleocin IV 05/02/25 12:39 INTRAOP ONE [facility] Medical History History of Holter monitoring Gastric reflux History of CHF (congestive heart failure) History of atrial fibrillation Left breast mass Wears glasses Cancer Diabetes Arthritis High cholesterol Non-smoker CPAP (continuous positive airway pressure) dependence Sleep apnea Shortness of breath on exertion History of edema History of stress test Cardiology follow-up encounter History of echocardiogram Preoperative cardiovascular examination Skin cancer (melanoma) ER+ (estrogen receptor positive status) 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 cancer Hypertension Osteopenia due to cancer therapy Bradycardia KRISTY (obstructive sleep apnea) DCIS (ductal carcinoma in situ) Breast cancer, right Nonrheumatic mitral (valve) insufficiency Obstructive sleep apnea Type 2 diabetes mellitus Osteoarthritis Hyperlipidemia Asthma Obesity Essential hypertension Home Medications ?Medication ?Instructions ?Recorded ?Last Taken ?Type aspirin 81 mg tablet,delayed 81 mg PO DAILY@0800 healt h 06/11/17 09/15/24 History release maintenance montelukast 10 mg tablet 10 mg PO DAILY allergies 08/22/17 08:00 History albuterol sulfate 90 mcg/actuation 2 puff inhalation Q 4H PRN PRN Sob 08/23/17 Unknown Rx aerosol inhaler &/Or Wheezing ##1 ascorbate calcium (vitamin C) 500 1 gm PO DAILY Check with primary 02/14/21 Unknown History mg tablet doctor fexofenadine 180 mg tablet 180 mg PO DAILY PRN allergy 02/14/21 Unknown History (Rubi Allergy) symptoms pravastatin 40 mg tablet 40 mg PO QHS Check with prim holden 02/14/21 Unknown History doctor atenolol 50 mg tablet 50 mg PO DAILY Check with pr imary 10/04/21 Unknown History doctor hydrochlorothiazide 25 mg tablet 25 mg PO DAILY Unknown History lisinopril 40 mg tablet 40 mg PO DAILY 04/22/22 Unkn own History omeprazole 20 mg capsule,delayed 20 mg PO DAILY Check with primary 04/22/22 Unknown History release doctor biotin 1,000 mcg chewable tablet 1,000 mcg PO DAILY Unknown History oxybutynin chloride 10 mg 10 mg PO DAILY 09/04/23 Unkn own History tablet,extended release 24 hr meloxicam 15 mg tablet 15 mg PO DAILY 09/16/23 Unkn own History metformin 500 mg tablet,extended 500 mg PO DAILY 09/16 Unknown History release 24 hr apixaban 5 mg tablet (Eliquis) 5 mg PO BID #60 tabs Unknown Rx amlodipine 5 mg tablet 5 mg PO QDAY 09/28/24 Unknow n History calcium 200 mg (as 1 tab PO DAILY 09/28/24 Unkn own History carbonate)-magnesium 100 mg chewable tablet (Riley-Mag) cholecalciferol (vitamin D3) 25 25 mcg PO QDAY 4 Unknown History mcg (1,000 unit) tablet cyanocobalamin (vitamin B-12) 1,000 mcg PO QDAY Unknown History 1,000 mcg tablet fluticasone 500 mcg-salmeterol 50 1 ea inhalation BID PRN Sob &/Or 09/28/24 Unknown History mcg/dose blistr powdr for Wheezing inhalation ipratropium 0.5 mg-albuterol 3 mg 3 ml inhalation Q6H PRN shortness 04/21/25 Unknown History (2.5 mg base)/3 mL nebulization of breath or wheezing soln Allergy/AdvReac Type Severity Reaction Status Date / Time adhesive tape (plastic tape) AdvReac Severe Other Verified 04/21/25 14:13 cephalexin AdvReac Severe Rash Verified 04/21/25 14:13 clindamycin AdvReac Severe Rash Verified 04/21/25 14:13 Penicillins AdvReac Severe Rash Verified 04/21/25 14:13 Sulfa (Sulfonamide AdvReac Severe Rash Verified 04/21/25 14:13 Antibiotics) Family History Mother Heart disease Breast cancer PER PATIENT MOTHER DID NOT HAVE BREAST CANCER Aunt Breast cancer Sister Breast cancer Asthma Father Colon cancer Brother Colon cancer Other Cancer Surgical History History of surgery on lower extremity History of colonoscopy History of esophagogastroduodenoscopy (EGD) History of cataract extraction History of right cataract extraction (~02/2023) S/P skin biopsy History of lumpectomy of right breast (01/15/19) History of breast biopsy (12/2018) History of ankle surgery History of tubal ligation Hx of cholecystectomy Social History household members: spouse and children housing: house number of children: 6 Smoking Status: Never smoker second hand exposure: No alcohol intake: never substance use type: does not use caffeine: No emanuel/orthodox: Christian seatbelt use: always do you feel safe at home: Yes Review of Systems (Anesthesia) ROS Narrative System reviewed and no additional complaints, except as documented.
[2025-05-02] MEDS: Lactated Ringers 1,000 ML 15 ML IV (10:58)
--- NOTE | 2025-05-02 11:00 | BI_ITS ---
EXAM: BREAST BIOPSY SPECIMEN 05/02/2025 CLINICAL HISTORY: F, Age 74 y/o , TECHNIQUE: BREAST BIOPSY SPECIMEN COMPARISON: Prior exam(s) dated March 11, 2025.. FINDINGS: The tissue clip marker as well as the localization wire seen within the specimen. BI/Breast Biopsy Specimen IMPRESSION: The specimen contains the tissue clip marker as well as the localization wire. Reading Location: [place] [id number]
--- NOTE | 2025-05-02 12:00 | BRBX_PTH ---
PATIENT: ALONZO VÁSQUEZ LOC: [facility] U#:[id number] AGE/SX: 74/F ROOM: RE05/02/[address]: Dr. Eder Castano MD : 1950 BED: DIS: 05/02/2025 SPEC #: [id number] RECD: 05/02/25 12:22 STATUS: GARCIA NYA #: [id number] MAXIMINO: 05/02/25 12:[address]: Eder Castano DEPT: SURGICAL PATHOLOGY RECD BY: Wilner Reeves ENTERED: 05/02/25 13:25 SP TYPE: BREAST BX OTHR DR: Lucita Ferreira, [facility], BILLING REPRESENTATIVE-C Tissues: A - Left breast, NOS Procedures: Immunohistochemical Stains Surgery Specimen Level IV HEADER OPERATION: Stereo wire localization with breast, left partial lumpectomy PRE-OP DIAGNOSIS: Ductal carcinoma in situ (DCIS) of left breast TISSUE SUBMITTED: A- Left breast tissue, stereo wire loc tags *short - superior, long - lateral* Ischemic Time: 38 minute Fixation Time: 6 hours, 34 minutes MICROSCOPIC DIAGNOSIS A. Breast, left, ductal carcinoma in situ (DCIS) of left breast, wire localization lumpectomy: - Benign breast tissue with biopsy site changes - see note. - Focal foreign material consistent with suture, fat necrosis. - Ecadherin IHC is negative for evidence of residual ductal carcinoma. Note: The previous biopsy ([id number]) is noted. MICROSCOPIC DESCRIPTION Slides are reviewed. All matched controls reacted appropriately. These tests were developed and their performance characteristics determined by [facility]. They may not have been cleared or approved by the U.S. Food and Drug Administration. The FDA has determined that such clearance or approval is not necessary.? The above immunohistochemical/dualISH?markers are reviewed by the Pathologist. GROSS DESCRIPTION A. Received fresh labeled with the patient's name and date of . Designated as left breast tissue-stereo wire loc is a 4.8 x 3.6 x 2.7 cm lumpectomy with an exposed, localization wire. There is a short suture designated as superior and a long suture designated as lateral. There is a slit-like defect on the anterior surface. The specimen is inked as follows: Superior: RedInferior: BlueMedial: YellowLateral: OrangeAnterior: GreenPosterior: Black The specimen is serially sectioned from superior to inferior (into 8 slices) revealing a 0.7 x 0.5 cm hemorrhagic biopsy cavity spanning slices #3-#6 with surrounding, yellow discoloration (suspicious for fat necrosis); there is a 1.0 x 0.7 x 0.6 cm well-circumscribed, montes-pink rubbery apparent mass inferior and contiguous with the biopsy site, spanning slices #6-#8. A bowtie biopsy clip is identified within the mass in slice #7. The mass/biopsy site is located the following distances from each margin: Anterior: <0.1 cmInferior: 0.2 cmMedial: <0.1 cmLateral: 0.8 cmPosterior: 0.5Superior: 1.1 cm Boat Engine Mechanic sections are submitted, sequentially from slice #1 (superior) to slice #8 (inferior), to represent approximately 90% of the specimen, as follows: A1: Slice #1, superior margin, perpendicularA2: Slice #2 with anterior, posterior marginsA3: Slice #3 with anterior, lateral, inferior marginsA4: Slice #4, biopsy site with adjacent fat necrosis, to anterior, lateral, posteriorA5: Slice #5, biopsy site with adjacent fat necrosis, to anterior, lateral, posteriorA6-A7: Slice #6, biopsy site/mass to anterior, posterior, medial, lateralA8: Slice #7, mass to anterior, medial, inferior-location of biopsy clipA9: Slice #8, mass to inferior, medial, perpendicular Cold ischemic time: 38 minutesFormalin fixation time: 6 hours, 34 minutes AL 05/02/2025 CPT:[id number] ADDENDUM ADDENDUM ADDENDUM ADDENDUM ADDENDUM ADDENDUM ADDENDUM ADDENDUM ADDENDUM 06/02/2025 10:30 ADDENDUM 06/02/2025 10:30 ADDENDUM 06/02/2025 10:30 ADDENDUM 06/02/2025 10:30 ADDENDUM 06/02/2025 10:30 The case is reviewed per Dr Jannet Bustamante's request for estimation of the surgical margin distance from the tumor, or biopsy cavity since no residual neoplasia was observed. The biopsy cavity is at minimum 4 mm from the closest (anterior) surgical margin. The biopsy site reaction including fibrosis and inflammation around the biopsy clip is noted to extend to the anterior surgical margin and < 1 mm from the medial surgical margin. If the biopsy clip was placed adjacent to the original biopsy site, the actual biopsy cavity seems to be the more accurate estimation of the tumor from the lumpectomy surgical margin; however, clinical correlation is essential.
--- NOTE | 2025-05-02 12:16 | PCM.OPRPT ---
Operative Report (Standard) Operative Information Date of Procedure: 05/02/25 Pre-Operative Diagnosis: Left breast DCIS Post-Operative Diagnosis: Left breast DCIS Surgery/Procedure Performed: 1. Left breast stereotactic guided wire localization 2. Left breast partial mastectomy financial systems manager: Yes Dining Host: [place] Tasks completed by first helper: Opening and Closing Type of Anesthesia: General/Regional RN Documented Start/Stop Times: Operation Date: 05/02/25 12:00 Case Time Into Pre-Op 05/02/25 10:30 Anesthesia Start 05/02/25 11:46 Into Room 05/02/25 11:46 Out of Pre-Op 05/02/25 11:48 Procedure Start 05/02/25 12:05 Procedure Start Time: 12:05 Procedure Stop Time: 12:25 Select all DRAINS/GRAFTS/IMPLANTS that apply: None Estimated Blood Loss: 5 Specimen collected: Yes Description of specimen(s) removed: Left breast mass Description of surgery: Patient was brought to the stereotactic room and placed on the stereotactic table. The left breast was compressed and the prior clip was localized. Next the skin was prepped and injected with local anesthetic. The needle was placed into the breast and the wire was deployed. Stereotactic images were obtained. Mammogram was then obtained and the patient was then brought back to presurgery. Next patient was brought back to the operating room and general anesthesia was induced. The left breast was marked and then an incision was made. The wire was brought into the incision. Flaps were then raised using electrocautery. The breast mass was excised using electrocautery dissection. The specimen was marked and then sent for x-ray. X-ray revealed the clip and the entire wire were removed. The cavity was irrigated and suctioned dry and hemostasis was obtained using electrocautery. It was irrigated once more. The skin was closed with interrupted 3-0 Vicryl sutures and a running 4-0 Monocryl suture. Dermabond was applied as well as surgical bra. Patient was taken to PACU in stable condition. Surgical Findings: None Complications Complications: No Admit VTE Documentation VTE Mechan Device Prophylaxis: SCD's
--- NOTE | 2025-05-02 12:20 | EX.PCM.DISCH ---
Discharge Instructions Diet Discharge Diet: Light diet - advance as tolerated Activity Discharge Activity: May Not Drive (for 2-3 days or while taking narcotic pain medications.) and May Shower Lifting Restrictions: 15 lbs for 1 week Additional Activity Instructions:: Alternate ibuprofen and Tylenol for pain control, oxycodone for breakthrough pain Resume aspirin tomorrow Dressing / Incision Call your doctor if your incision/area has: Continuous Slow Oozing, Sudden Increased Bleeding, Increased Pain/ Swelling, Increased Redness, Foul Smelling Discharge and Swelling at the incision site Call your doctor if you observe: Fever of 101 or Higher Suture Line Care: Avoid Pulling/Pushing and Avoid Pinching/Bending Cleanse incision/area with: Soap & Water Additional Dressing/Incision Instructions:: Wear surgical bra for support the first week Follow Up Care Please Follow Up With: Eder Castano MD When: Please call to schedule 2 week follow up appointment. [phone] Test Results: Test results from this visit will be discussed in further detail at your follow-up appointment, if applicable. Discharge Plan Admission Attending Provider: Eder Castano Primary Care Provider: Lucita Ferreira [facility] Instructions Print Language: Latvian Discharge Orders/Prescriptions Prescriptions: New oxycodone 5 mg tablet 5 - 10 mg PO Q6H PRN (Reason: pain) 5 Days Qty: 10 0RF No Action pravastatin 40 mg tablet 40 mg PO QHS Patient Comments: TAKE 1 TABLET BY MOUTH ONCE DAILY IN THE EVENING fexofenadine [Rubi Allergy] 180 mg tablet 180 mg PO DAILY PRN (Reason: allergy symptoms) ascorbate calcium (vitamin C) 500 mg tablet 1 gm PO DAILY omeprazole 20 mg capsule,delayed release(DR/EC) 20 mg PO DAILY Patient Comments: TAKE 2 CAPSULES BY MOUTH ONCE DAILY hydrochlorothiazide 25 mg tablet 25 mg PO DAILY lisinopril 40 mg tablet 40 mg PO DAILY biotin 1,000 mcg tablet,chewable 1,000 mcg PO DAILY oxybutynin chloride 10 mg tablet extended release 24hr 10 mg PO DAILY meloxicam 15 mg tablet 15 mg PO DAILY metformin 500 mg tablet extended release 24 hr 500 mg PO DAILY cyanocobalamin (vitamin B-12) 1,000 mcg tablet 1,000 mcg PO QDAY amlodipine 5 mg tablet 5 mg PO QDAY cholecalciferol (vitamin D3) 25 mcg (1,000 unit) tablet 25 mcg PO QDAY Riley-Mag 200 mg calcium- 100 mg tablet,chewable 1 tab PO DAILY fluticasone propion-salmeterol 500-50 mcg/dose blister with device 1 ea INHALATION BID PRN (Reason: Sob &/Or Wheezing) aspirin 81 MG tablet 81 mg PO DAILY@0800 Patient Comments: stopped for colonoscopy montelukast 10 MG tablet 10 mg PO DAILY albuterol sulfate 1 INHALER inhaler 2 puff INHALATION Q4H PRN PRN (Reason: Sob &/Or Wheezing) Qty: 1 0RF atenolol 50 mg tablet 50 mg PO DAILY ipratropium-albuterol 0.5 mg-3 mg(2.5 mg base)/3 mL solution for nebulization 3 ml inhalation Q6H PRN (Reason: shortness of breath or wheezing) Eliquis 5 mg tablet 5 mg PO BID Qty: 60 11RF Referrals / Follow Up: Lucita Ferreira, BENCH ASSEMBLER-C [Primary Care Provider] - Disposition Disposition (needs filled in before D/C Order can be placed): Home, Self Care
--- NOTE | 2025-05-02 12:40 | PCM.POST.ANE ---
Anesthesia: Postop Eval I Current Vital Signs Temperature: 97 F Pulse Rate: 78 Blood Pressure: 109/70 Respiratory Rate: 14 Pulse Ox: 91 Oxygen Delivery Method: Room Air Assessment Airway patent: Yes Spontaneous unlabored respirations: Yes Mental status: Awake nausea: No Vomiting: No Anesthesia Complication: No Fluid Hydration Crystalloid volume administer (ml): 500 Total IV fluid infused: 500 Progress Note Anesthesia document: Postop Eval 1 completed: Yes
--- NOTE | 2025-05-02 13:06 | POSTOPAN2_ITS ---
Anesthesia Postop Eval I Sum Postop Eval Completion status Anesthesia document: Postop Eval 1 completed: Yes Anesthesia Postop Eval I Summary Anesthesia Postop Eval I Summary: Anesthesia Postop Eval I: Assessment Summary Airway patent Yes 05/02/25 12:41 [email or web address] Spontaneous unlabored Yes 05/02/25 12:41 [email or web address] respirations Mental status Awake 05/02/25 12:41 [email or web address] nausea No 05/02/25 12:41 [email or web address] Vomiting No 05/02/25 12:41 [email or web address] Anesthesia Postop Eval I: Fluid Summary Crystalloid volume administer 500 05/02/25 12:41 [email or web address] (ml) Colloids volume administered ( ml) Blood Product volume administered (ml) Total IV fluid infused 500 05/02/25 12:41 [email or web address] Anesthesia Postop Eval I: Summary Notes Anesthesia Complication No 05/02/25 12:41 [email or web address] Anesthesia Complication Comment: Post-operative progress note Anesthesia: Postop Eval II Evaluation Mental status: Awake Pain Level: 3 nausea: No Vomiting: No
--- NOTE | 2025-05-02 13:06 | PCM.POSTANE2 ---
Anesthesia Postop Eval I Sum Postop Eval Completion status Anesthesia document: Postop Eval 1 completed: Yes Anesthesia Postop Eval I Summary Anesthesia Postop Eval I Summary: Anesthesia Postop Eval I: Assessment Summary Airway patent Yes 05/02/25 12:41 [email or web address] Spontaneous unlabored Yes 05/02/25 12:41 [email or web address] respirations Mental status Awake 05/02/25 12:41 [email or web address] nausea No 05/02/25 12:41 BALCONY [email or web address] Vomiting No 05/02/25 12:41 [email or web address] Anesthesia Postop Eval I: Fluid Summary Crystalloid volume administer 500 05/02/25 12:41 [email or web address] (ml) Colloids volume administered ( ml) Blood Product volume administered (ml) Total IV fluid infused 500 05/02/25 12:41 [email or web address] Anesthesia Postop Eval I: Summary Notes Anesthesia Complication No 05/02/25 12:41 [email or web address] Anesthesia Complication Comment: Post-operative progress note Anesthesia: Postop Eval II Evaluation Mental status: Awake Pain Level: 3 nausea: No Vomiting: No
== END 2025-05-02 14:20 | disposition home or self-care (01) ==
LOC: SDC 09:56 → AC 09:59
PROVIDERS: PCP Nurse Practitioner Family; Referring Provider Surgery; Visit Provider Surgery
PROC: (CPT 19301; principal; 2025-05-02 11:45)
DX: D05.12 Intraductal carcinoma in situ of left breast (principal); I11.0 Hypertensive heart disease with heart failure; I50.9 Heart failure, unspecified; I48.91 Unspecified atrial fibrillation; E11.9 Type 2 diabetes mellitus without complications; E78.00 Pure hypercholesterolemia, unspecified; G47.33 Obstructive sleep apnea (adult) (pediatric); Z79.51 Long term (current) use of inhaled steroids; Z79.01 Long term (current) use of anticoagulants; Z79.82 Long term (current) use of aspirin; Z79.899 Other long term (current) drug therapy; Z79.84 Long term (current) use of oral hypoglycemic drugs
CPT/HCPCS: 19283; 19301; 00400; 19281; 76098; 82962; 88305; 88342; J2405

== ENCOUNTER → 2025-06-01 | Outpatient (CLI) | payer MEDICARE, SELFPAY ==
[2019-02-16 09:03] VITALS: BMI 51.2
--- NOTE | 2025-06-01 09:39 | MRI_ITS ---
PROCEDURE: BREAST BILATERAL W/O AND W 06/01/2025 REASON FOR EXAM: ABNORMAL MAMMOGRAM OF LEFT BREAST 74-year-old female with history of left breast cancer status post left lumpectomy in April 2025. Also has a remote history of right breast cancer status post right lumpectomy with radiation in 2018. TECHNIQUE: BREAST BILATERAL W/O AND W CONTRAST: 19 mL of IV Clariscan COMPARISON: 05/02/2025, 02/26/2025 FINDINGS: TISSUE DENSITY: There are scattered areas of fibroglandular density. Background Parenchymal Enhancement: Minimal RIGHT Breast: No suspicious mass or non-mass enhancement. LEFT Breast: There are postsurgical changes in the upper inner left breast at middle depth, including a postoperative seroma measuring 4.2 x 2.2 x 4.4 cm (AP by TR by CC). The postoperative seroma has associated surrounding enhancement. Also, there is left nipple inversion with enhancement of the left nipple. Other Findings: No suspicious axillary or internal mammary lymph nodes. Visualized portions of the thoracic and abdominal viscera are unremarkable. MRI/Breast Bilateral W/O and W IMPRESSION: 1. Post operative seroma with associated surrounding enhancement, as well as t he enhancement of the left nipple, are likely reflective recent postoperative changes. Recommend continued attention on foll ow-up examination. 2. There is no MR evidence of malignancy in the right breast. OVERALL FINAL ASSESSMENT BI-RADS 2: BENIGN RECOMMENDATION: MRI Recommended in 1 year. Reading Location: [id number]
== END | disposition home or self-care (01) ==
LOC: MRI 09:20
PROVIDERS: PCP Nurse Practitioner Family; Referring Provider Internal Medicine Hematology & Oncology; Visit Provider Internal Medicine Hematology & Oncology
DX: R92.8 Other abnormal and inconclusive findings on diagnostic imaging of breast (principal); D05.12 Intraductal carcinoma in situ of left breast
CPT/HCPCS: 77049; A9575; C8908